=== PATIENT | male | born 1950 | race Caucasian/White ===

== ENCOUNTER 2018-06-24 14:58 | Outpatient (REF) | payer MEDICARE, SELFPAY ==
[2018-06-24 20:54] LABS: HCT 50.2 % (40.0-50.0); HGB 16.7 g/dL (13.5-17.5); Mean Corp. HGB Concentration 33.3 g/dL (32.0-36.0); Mean Corpuscular Hemoglobin 27.9 pg (27.0-33.0); Mean Corpuscular Volume 83.9 fL (80-95); Mean Platelet Volume 10.1 fL (8.0-11.0); Platelet Count 283 x1000/uL (130-400); RBC 5.98 m/cumm (4.50-6.00); RBC Distribution Width 12.7 % (11.8-14.1); White Blood Cell Count 15.19 k/cumm (4.4-10.8)
[2018-06-24 21:11] LABS: ALT 35 U/L (12-78); AST 24 U/L (15-37); Albumin 4.3 g/dL (3.4-5.0); Alkaline Phosphatase 132 U/L (46-116); Anion Gap 12.5 mmol/L (3-11); BUN 13 mg/dL (7-18); Bilirubin, Total 0.6 mg/dL (0.2-1.0); CO2 25.5 mmol/L (21.0-32.0); CREATININE 0.85 mg/dL (0.70-1.30); Calcium 8.8 mg/dL (8.5-10.1); Chloride 104 mmol/L (98-107); Glucose 99 mg/dL (70-100); Potassium 4.1 mmol/L (3.5-5.1); Sodium 142 mmol/L (136-145); Total Protein 7.6 g/dL (6.4-8.2)
[2018-06-26 10:50] LABS: PSA, Diagnostic 10.7 ng/ml (0-4.5)
== END 2018-06-24 15:18 ==
LOC: NCHCN 14:58
PROVIDERS: PCP Specialist/Technologist Athletic Trainer; Visit Provider Specialist/Technologist Athletic Trainer
DX: R39.198 Other difficulties with micturition (principal); N40.1 Benign prostatic hyperplasia with lower urinary tract symptoms
CPT/HCPCS: 80053; 85027; 84153; 87086

== ENCOUNTER 2018-06-25 08:27 | Emergency (ER) | payer MEDICARE, SELFPAY ==
[2018-06-25 08:34] VITALS: BP 135/96; PULSE 105; RESP 16; TEMP 36.6; O2SAT 97
--- NOTE | 2018-06-25 08:39 | ED.GENADUL_ITS ---
Discharge Plan Discharge Details Chief Complaint: Urinary Primary Care Provider: Tylor William ED Provider: Everette Garcia Home Meds and New Rx's Prescriptions: New ciprofloxacin HCl 250 mg tablet 250 mg PO BID Qty: 14 RF: 0 Continue tamsulosin [Flomax] 0.4 mg Capsule 1 cap PO DAILY RF: 0 Discharge Instructions Instructions: Urinary Retention in Men (ED) Additional Instructions: Our care management team will work to get you an appointment in urology clinic next week for approximately 7-day follow-up. Continue your Flomax. Take ciprofloxacin as prescribed. Return to the emergency room for any acute concern Medical Decision Making 68-year-old male with a recent increase in inability to completely void while urinating. He was seen in the office yesterday and underwent prostate exam was started on Flomax. He now presents with urinary retention. He is afebrile in mild discomfort. Bedside ultrasound reveals urinary retention Erazo catheter was placed with improvement and 900 cc urine output. Will send for urine culture. I will place him on antibiotics for presumptive prostatitis. Reviewed yesterday's laboratories which revealed normal creatinine. Discussed with Geraldine Carolina in urology clinic. Through care management we will arrange for approximately 1 week follow-up. Patient will continue the Flomax, I will prescribe a fluoroquinolone. He is stable for discharge home HPI General Mode of arrival: ambulatory . Date/Time Provider Initiated Documentation: 06/25/18 08:28 . Limitations to Documentation: no limitations . Information obtained by: patient . History of Present Illness 68 year old M presents to the emergency department with the chief complaint of Urinary retention, described as moderate, Quality is described as aching, dull and constant, and is localized to the abdomen. Patient reports no radiation. Patient started experiencing this hour(s) and it has been constant. No relieving factors improve symptom(s), No exacerbating factors reported . Patient notes no other symptoms.. Patient did receive the following treatments prior to arrival, none HPI Narrative: 68-year-old male with recent history of incomplete voiding, seen in the office yesterday and started on Flomax. This morning for the first time he is unable to urinate. He has dull, achy, constant lower abdominal pain. No vomiting or fever. He has otherwise recently been well. Related Data Home Medications Medication Instructions Recorded Confirmed ciprofloxacin HCl 250 mg PO BID #14 tab 06/25/18 tamsulosin [Flomax] 1 cap PO DAILY 06/25/18 06/25/18 Previous Rx's Medication Instructions Recorded ciprofloxacin HCl 250 mg PO BID #14 tab 06/25/18 General Stated Complaint: Urinary JODIE: 4 Review of Systems Review of Systems 6 systems reviewed and otherwise Exam Narrative Exam Narrative: GEN: awake, alert, oriented 3. Pleasant, well groomed, interactive. HEAD: Normocephalic, atraumatic ENT: Mucous membranes moist, oropharynx unremarkable, External ear exam unremarkable EYES: PERRL, EOMI NECK: Full ROM, no DARLENE, no menigismus CHEST/RESP: Nontender, clear to auscultation bilateral, no wheeze/rhonchi/rales CARDIOVASCULAR: RRR, no murmur, rub nan. 2+ Rad pulse bilateral ABDOMEN: Soft, distended and tender in the suprapubic region without rebound or guarding. +Bowel sounds EXT: Full ROM, no edema, no rash Neuro: Grossly normal neurologic exam, conversant, interactive. Psych: Speech fluent, thoughts congruent, affect normal Course Vital Signs Temperature 36.6 C 06/25/18 08:34 Pulse 105 H 06/25/18 08:34 Respiratory Rate 16 06/25/18 08:34 Blood Pressure 135/96 H 06/25/18 08:34 Pulse Oximetry 97 06/25/18 08:34 Temperature 36.6 C 06/25/18 08:34 Pulse 105 H 06/25/18 08:34 Respiratory Rate 16 06/25/18 08:34 Blood Pressure 135/96 H 06/25/18 08:34 Blood Pressure Position Sitting 06/25/18 08:34 Pulse Oximetry 97 06/25/18 08:34 Oxygen Delivery Method Room Air 06/25/18 08:34 Oxygen Flow Rate 0 06/25/18 08:34 Pain Level 5 06/25/18 08:34
--- NOTE | 2018-06-26 08:28 | PDOC.ERCMPRO ---
Care Management Progress Note 06/26/18-Pt seen for urinary retention/prostatitis on 06/25/[address] Marisol Garcia. F/U referral faxed to Urology.
== END 2018-06-25 09:16 | disposition home or self-care (01) ==
LOC: ER 09:45
PROVIDERS: Emergency Provider Emergency Medicine; PCP Specialist/Technologist Athletic Trainer
DX: R33.9 Retention of urine, unspecified (principal)
CPT/HCPCS: 51702; 99283; 87086

== ENCOUNTER → 2018-07-02 10:43 | Outpatient (BNVA) | payer MEDICARE, SELFPAY | PROVIDERS: PCP Specialist/Technologist Athletic Trainer; Visit Provider Nurse Practitioner Gerontology | DX: N40.1 Benign prostatic hyperplasia with lower urinary tract symptoms (principal); R33.8 Other retention of urine | CPT/HCPCS: 99203; 99215 ==

== ENCOUNTER 2019-05-19 00:12 | Emergency (ER) | payer MEDICARE, SELFPAY ==
[2019-05-19 00:19] VITALS: BP 147/99; PULSE 69; RESP 16; TEMP 36.1; O2SAT 98
--- NOTE | 2019-05-19 00:47 | ED.GENADUL_ITS ---
Discharge Plan Disposition Patient Disposition: HOME Condition: Stable Discharge Details Chief Complaint: Urinary Clinical Impression: Acute urinary retention Primary Care Provider: Tylor William ED Provider: Kodi Lopez Home Meds and New Rx's Prescriptions: Continued tamsulosin [Flomax] 0.4 mg Capsule 1 cap PO DAILY RF: 0 Discharge Instructions Instructions: Urinary Retention in Men (ED), Thao Catheter Placement and Care (ED) Additional Instructions: Follow up with the urology clinic in 1-2 weeks, someone should reach out to you with an appointment but if you don't hear from someone by tomorrow afternoon call Dr. Woodall's office if you have severe pain, fevers or feel more ill return to the emergency department Referrals: Jean-Claude Woodall MD [ [facility] STAFF PHYSICIAN] - Medical Decision Making 69 yo male with hx of bph requiring thao insertion abouta year ago per pt comes in with complaint of dribbling urine and unable to fully empty bladder. Denies burnign or pain and has no abdominal pain. HE has no fevers or chills and is in no distres on exam. He urinated here and still has over 600cc of urine in his bladder. Suspect htis is due to his bph, will have nursing place thao catheter and check UA. UA unremarkable, thao placed by nursing without complications. Will have him f/u with urology for voiding trial, return precautions given Differential Diagnosis bph, cystitis Lab Data Lab results reviewed: Yes I reviewed the patient's lab results. HPI General Mode of arrival: ambulatory . Date/Time Provider Initiated Documentation: 05/19/19 00:13 . Limitations to Documentation: no limitations . Information obtained by: patient . History of Present Illness 69 year old M presents to the emergency department with the chief complaint of difficulty urinating, described as moderate, Patient started experiencing this day(s) (1) and it has been constant. No relieving factors improve symptom(s), No exacerbating factors reported . Patient did receive the following treatments prior to arrival, none Related Data Home Medications Medication Instructions Recorded Confirmed tamsulosin [Flomax] 1 cap PO DAILY 06/25/18 07/02/18 Allergies Allergy/AdvReac Type Severity Reaction Status Date / Time No Known Allergies Allergy Verified 07/02/18 10:59 General Stated Complaint: Urinary JODIE: 3 Review of Systems Review of Systems All systems reviewed & are unremarkable except as noted in HPI and below Constitutional Denies chills, Denies fever(s) and Denies weakness Cardiovascular Denies chest pain and Denies dyspnea Respiratory Denies cough and Denies dyspnea Gastrointestinal Denies abdominal pain, Denies nausea and Denies vomiting Genitourinary Denies dysuria Integumentary/Breasts Denies rash Neurologic Denies weakness [facility] Social History (Updated 07/02/18 @ 10:58 by Maddy Avelar RN) Smoking/Tobacco Use Status: Never Alcohol Intake: current Alcohol Intake frequency: holidays/special occasions only Drug use: Never Substance use type: does not use Do you feel safe in your relationship?: Yes Exam Const General: no acute distress Orientation: alert HENMT Head: normal to inspection Ears: external ears normal General nose exam: external nose normal Mouth: moist mucous membranes Eyes General: appearance normal, both eyes and all related structures Neck Neck: normal visual inspection Resp Effort & Inspection: normal respiratory effort and able to speak in complete sentences Cardio Rate: regular rate GI Palpation: soft Skin General skin exam: no rashes or lesions noted Neuro General: alert and oriented x3 Extrem General: normal to inspection Psych Mental Status: mental status grossly normal Course Vital Signs Temperature 36.1 C L 05/19/19 00:19 Pulse 69 05/19/19 00:19 Respiratory Rate 16 05/19/19 00:19 Blood Pressure 147/99 H 05/19/19 00:19 Pulse Oximetry 98 05/19/19 00:19 Temperature 36.1 C L 05/19/19 00:19 Temperature Source Skin 05/19/19 00:19 Pulse 69 05/19/19 00:19 Respiratory Rate 16 05/19/19 00:19 Blood Pressure 147/99 H 05/19/19 00:19 Pulse Oximetry 98 05/19/19 00:19 Oxygen Delivery Method Room Air 05/19/19 00:19 Oxygen Flow Rate 0 05/19/19 00:19 Pain Level 0 05/19/19 00:19
[2019-05-19 00:48] LABS: Bilirubin Negative (Negative); Blood Negative (Negative); Clarity Clear (Clear); Glucose Negative (Negative); Ketones Negative (Negative); Leukocyte Esterase Negative (Negative); Nitrite Negative (Negative); Specific Gravity 1.015 (1.005-1.025); Urobilinogen 0.2 EU/dL (Up TO 0.2)
[2019-05-19] MEDS: Lidocaine 2% Jelly 6 ML SYR (02:04)
--- NOTE | 2019-05-19 07:01 | NUR.NOTE ---
referral faxed to [facility], Dr. Woodall.Nursing Note:
== END 2019-05-19 02:50 | disposition home or self-care (01) ==
PROVIDERS: Emergency Provider Emergency Medicine; PCP Specialist/Technologist Athletic Trainer
DX: N40.1 Benign prostatic hyperplasia with lower urinary tract symptoms (principal); R33.8 Other retention of urine
CPT/HCPCS: 51702; 99283; 81003

== ENCOUNTER 2019-05-20 21:10 | Emergency (ER) | payer MEDICARE, SELFPAY ==
[2019-05-20 21:15] VITALS: BP 141/78; PULSE 93; RESP 18; TEMP 37.1; O2SAT 99
--- NOTE | 2019-05-20 21:51 | ED.GENADUL_ITS ---
Discharge Plan Disposition Patient Disposition: HOME Condition: Good Discharge Details Chief Complaint: Urinary Clinical Impression: Displacement of Erazo catheter Primary Care Provider: Tylor William ED Provider: David Sellers Home Meds and New Rx's Prescriptions: Continued tamsulosin [Flomax] 0.4 mg Capsule 2 cap PO DAILY RF: 0 Discharge Instructions Instructions: Erazo Catheter Placement and Care (ED) Additional Instructions: Erazo care as shown by nursing. Follow-up with urology as planned. Continue the Flomax. Return to ED for problems. Referrals: Jean-Claude Woodall MD [ [facility] STAFF PHYSICIAN] - Medical Decision Making Asked nursing to evaluate Erazo and flush as necessary. She reports that it was actually pulled quite a ways out. She moved the balloon and repositioned and he immediately had urine return. He feels much better. There is no gross hematuria. Patient will continue Flomax and follow-up with urology as previously planned. Erazo care reviewed by nursing. HPI General Mode of arrival: ambulatory . Date/Time Provider Initiated Documentation: 05/20/19 21:51 . Limitations to Documentation: no limitations . Information obtained by: patient . HPI Narrative: Patient presents to ED because his Erazo which we had placed a couple days ago is no longer draining. He feels like he needs to urinate but cannot. He is leaking out around the catheter. He has had no fever. He has no back pain. He has had no hematuria. He is on Flomax and is due to see urology on 29 May. Related Data Home Medications Medication Instructions Recorded Confirmed tamsulosin [Flomax] 2 cap PO DAILY 06/25/18 05/20/19 Allergies Allergy/AdvReac Type Severity Reaction Status Date / Time No Known Allergies Allergy Verified 05/20/19 21:19 General Stated Complaint: Urinary JODIE: 3 Review of Systems Review of Systems As documented in HPI otherwise negative as below. Const: no fever, chills, weakness Resp: no cough, SOB, pleuritic pain CV: no CP, diaphoresis, edema, syncope GI: no abdominal pain, nausea, vomiting, diarrhea Neuro: no headache, numbness, focal weakness, confusion PFSH Medical History BPH (benign prostatic hyperplasia) (Chronic) Social History Smoking/Tobacco Use Status: Never Alcohol Intake: current Alcohol Intake frequency: holidays/special occasions only Drug use: Never Substance use type: does not use Do you feel safe at home: Yes Do you feel safe in your relationship?: Yes Exam Narrative Exam Narrative: Vitals: Afebrile. Mildly hypertensive and tachycardic likely due to discomfort. Normal saturations. Const: WDWN male in NAD. HEENT: NC/AT. Normal facial exam. Neck: Supple. Trachea midline. Lungs: Normal respiratory effort. Neuro: A+O x 3. CN grossly in tact. Good strength and no focal deficit. : Erazo in place. Draining minimal urine. No gross hematuria. Course Vital Signs Temperature 98.8 F 05/20/19 21:15 Pulse 93 H 05/20/19 21:15 Respiratory Rate 18 05/20/19 21:15 Blood Pressure 141/78 H 05/20/19 21:15 Pulse Oximetry 99 05/20/19 21:15 Temperature 98.8 F 05/20/19 21:15 Temperature Source Skin 05/20/19 21:15 Pulse 93 H 05/20/19 21:15 Respiratory Rate 18 05/20/19 21:15 Blood Pressure 141/78 H 05/20/19 21:15 Pulse Oximetry 99 05/20/19 21:15 Oxygen Delivery Method Room Air 05/20/19 21:15 Oxygen Flow Rate 0 05/20/19 21:15 Pain Level 0 05/20/19 21:15
--- NOTE | 2019-05-21 00:06 | NUR.NOTE ---
05/20/192129 signwriter observed thao catheter in place with taunt catheter noted, leg bag not in correct position ie too far down on leg pulling catheter, with urine leaking at insertion site. signwriter reposition the catheter with immediate urine flow into bag noted. signwriter flushed thao with 30cc sterile water with no clots returned and 30cc clear light yellow return immedialty noted. pt tolerated procedure well. Dr Sellers notified. leg bag positioned correclty and pt educated on correct placement as well as educating pt on thao cath care/maintenance and use of leg bag/drainage bag with pt verbal understanding. Nursing Note:
== END 2019-05-20 22:16 | disposition home or self-care (01) ==
PROVIDERS: Emergency Provider Emergency Medicine; PCP Specialist/Technologist Athletic Trainer
DX: T83.021A Displacement of indwelling urethral catheter, initial encounter (principal); N40.1 Benign prostatic hyperplasia with lower urinary tract symptoms; I10 Essential (primary) hypertension; Z96.0 Presence of urogenital implants
CPT/HCPCS: 99282; 99283

== ENCOUNTER 2019-05-21 16:55 | Emergency (ER) | payer MEDICARE, SELFPAY ==
[2019-05-21 16:57] VITALS: BP 132/100; PULSE 76; RESP 16; TEMP 36.8; O2SAT 95
--- NOTE | 2019-05-21 17:00 | ED.GENADUL_ITS ---
Discharge Plan Disposition Patient Disposition: HOME Condition: Fair Discharge Details Chief Complaint: Urinary Clinical Impression: Urinary retention Primary Care Provider: Tylor William ED Provider: Sherlyn Lee Home Meds and New Rx's Prescriptions: Continued tamsulosin [Flomax] 0.4 mg Capsule 2 cap PO DAILY RF: 0 Discharge Instructions Instructions: Urinary Retention in Men (ED), Erazo Catheter Placement and Care (ED) Additional Instructions: Encourage hydration. Please continue with catheter care as instructed by nursing staff. Please call urology tomorrow to discuss her continued catheter issues. Keep upcoming appointment with urologist. If you develop fever/chills, pain, difficulty with urinary drainage or the new/worsening symptoms please seek care urgently once again. Referrals: Jean-Claude Woodall MD [ [facility] STAFF PHYSICIAN] - Medical Decision Making Patient is 69-year-old male presenting today with chief complaint of draining around his catheter. Patient had catheter placed 2 days ago. Was here yesterday at which time he has had a catheter was almost pulled out completely. Catheter was replaced. Patient has known diagnosis of BPH which thought to be the source of his urinary retention. He presents today for 1 hour of diminished output through the catheter and drainage around. His reports that he was voiding through close with the drainage from the penis around the catheter. Did not note any foul smell purulent discharge. He does not have any pain in the penis or in the abdomen. Denies any fevers or chills. On exam, the catheter appears to be in place. No abnormalities with palpation. Nursing staff attempted to flush the catheter and were unable to draw back any fluid. Catheter was over replaced with an 18 [place] catheter. Patient tolerated this well. Urine immediately draining. Patient reported that he continued to have some penile discharge. However, when I discussed this further, this sounds to be more the Urojet substance that was placed for the insertion of the catheter. He does not seem to have any urinary discharge. He was kept in the department for another half an hour, was drinking water and ambulating with no continued discharge. He will contact urology to discuss follow-up appointment. Encourage hydration. He was given strict return precautions. Care of the catheter was discussed with patient. All the questions and concerns were addressed in agreement this plan. HPI General Mode of arrival: ambulatory . Date/Time Provider Initiated Documentation: 05/21/19 16:59 . Limitations to Documentation: no limitations . Information obtained by: patient, family () and RN notes reviewed . HPI Narrative: Patient is a 69-year-old male presents today with chief complaint of draining around his catheter. Patient was seen here 2 days ago at which time he was diagnosed with urinary retention. Catheter was placed. Was seen here again last night with difficulty with his catheter. At that time, nursing staff felt that the catheter was near dislodged, catheter was flushed and urine flowed well. He denies any penile pain. No abdominal pain. No hematuria. He has a follow-up appointment. Denies any pulling on the Erazo. Reports his been laying low primarily since placement of catheter. Related Data Home Medications Medication Instructions Recorded Confirmed tamsulosin [Flomax] 2 cap PO DAILY 06/25/18 05/20/19 Allergies Allergy/AdvReac Type Severity Reaction Status Date / Time No Known Allergies Allergy Verified 05/20/19 21:19 General Stated Complaint: Urinary JODIE: 3 Review of Systems Constitutional Reports as per HPI, Denies chills, Denies fever(s) and Denies poor appetite Cardiovascular Denies chest pain Respiratory Denies cough Gastrointestinal Denies abdominal pain, Denies change in bowel habits, Denies nausea and Denies vomiting Genitourinary Reports as per HPI Musculoskeletal Reports as per HPI and Denies back pain Integumentary/Breasts Reports as per HPI and Denies rash PFS Medical History BPH (benign prostatic hyperplasia) (Chronic) Social History Smoking/Tobacco Use Status: Never Alcohol Intake: current Alcohol Intake frequency: holidays/special occasions only Drug use: Never Substance use type: does not use Do you feel safe at home: Yes Do you feel safe in your relationship?: Yes Exam Const General: cooperative, healthy appearing, comfortable, no acute distress, well developed and well groomed Nutritional Appearance: average body habitus and well nourished Orientation: alert and awake Resp Effort & Inspection: normal respiratory effort and no respiratory distress Auscultation: clear to auscultation bilaterally, no rales, no rhonchi and no wheezes Cardio Rate: regular rate Rhythm: regular rhythm Heart Sounds: S1 normal and S2 normal GI Inspection: normal to inspection Palpation: soft, no hepatosplenomegaly, not firm, no guarding, not rigid and nontender Male General Exam: Yes normal external exam and Yes other (catheter in place, no drainage appreciated ) Penis: normal penis Meatus: meatus normal Back/Spine/Pelvis Back: no CVA tenderness Skin General skin exam: no rashes or lesions noted Trauma: no lacerations or abrasions Neuro General: alert and awake Cognition: normal cognition Speech: speech normal Gait: normal gait Psych Appearance: grossly normal and well kempt Mental Status: mental status grossly normal Speech and Movement: speech and movement normal Course Vital Signs Temperature 36.8 C 05/21/19 16:57 Pulse 76 05/21/19 16:57 Respiratory Rate 16 05/21/19 16:57 Blood Pressure 132/100 H 05/21/19 16:57 Pulse Oximetry 95 05/21/19 16:57 Temperature 36.8 C 05/21/19 16:57 Temperature Source Skin 05/21/19 16:57 Pulse 76 05/21/19 16:57 Respiratory Rate 16 05/21/19 16:57 Blood Pressure 132/100 H 05/21/19 16:57 Blood Pressure Position Sitting 05/21/19 16:57 Pulse Oximetry 95 05/21/19 16:57 Oxygen Delivery Method Room Air 05/21/19 16:57 Oxygen Flow Rate 0 05/21/19 16:57
[2019-05-21] MEDS: Lidocaine 2% Jelly 6 ML SYR (17:40)
== END 2019-05-21 19:03 | disposition home or self-care (01) ==
PROVIDERS: Emergency Provider Physician Assistant; PCP Specialist/Technologist Athletic Trainer
DX: T83.031A Leakage of indwelling urethral catheter, initial encounter (principal); N40.1 Benign prostatic hyperplasia with lower urinary tract symptoms; R33.8 Other retention of urine
CPT/HCPCS: 51702; 99283

== ENCOUNTER 2019-05-22 20:50 | Observation (INO) | payer MEDICARE, SELFPAY ==
--- NOTE | 2019-05-22 21:01 | ED.GENADUL_ITS ---
Discharge Plan Disposition Patient Disposition: [facility] INPATIENT Condition: Poor Discharge Details Chief Complaint: Fever Clinical Impression: UTI (urinary tract infection), Sepsis Primary Care Provider: Tylor William ED Provider: David Sellers [place] Meds and New Rx's Prescriptions: No Action oxybutynin chloride 5 mg tablet 5 mg PO BID-TID PRN (Reason: bladder spasms) Qty: 20 RF: 0 tamsulosin [Flomax] 0.4 mg Capsule 2 cap PO DAILY RF: 0 Medical Decision Making Patient presenting with fever and tachycardia with likely UTI. This would qualify as sepsis. 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 IV was eventually established. LR was started. Laboratory studies were obtained. Erazo was clamped and urine was eventually obtained from the bladder itself. Patient's heart rate and temperature have come down. He is getting the second liter of LR. His white count is markedly elevated. His lactic acid is normal. His labs are otherwise good. Urine is mostly bloody with inability to identify white cells or bacteria. As there is no other source I will presume UTI and sepsis. Patient however looks well and has no complaints. He has received IV ceftriaxone. He is on his second liter of fluid. He would like to go home which if his vitals normalized after the second liter is probably a reasonable course. We will continue him on ciprofloxacin. Patient continues to be tachycardic despite 2 L of LR. He continues to feel well. His blood pressure is normal. However given the persistent tachycardia I cannot justify discharging him. I have discussed this with him and his . They are agreeable to admission. Case discussed with hospitalist. We will continue LR overnight. Will give another dose of IV ceftriaxone. He will have a total of 2 g on board. Blood and urine cultures pending. Patient will be admitted to telemetry for monitoring of UTI and sepsis. Medical Records Medical records reviewed: Yes I reviewed the patient's medical records. Lab Data Lab results reviewed: Yes I reviewed the patient's lab results. HPI General Mode of arrival: ambulatory . Date/Time Provider Initiated Documentation: 05/22/19 21:01 . Limitations to Documentation: no limitations . Information obtained by: patient, RN notes reviewed and old records reviewed . HPI Narrative: Patient presents to ED with fever. Patient has a Erazo which was placed by us originally for urinary retention. It was replaced yesterday because it was not working. He developed fever and chills today. He otherwise feels well. He has no back, flank, abdominal pain. Catheter is draining freely. He reports no cough or cold symptoms. There is no chest pain or shortness of breath. However, his was concerned that he had a high fever and brought him in for evaluation. Related Data Home Medications Medication Instructions Recorded Confirmed tamsulosin [Flomax] 2 cap PO DAILY 06/25/18 05/22/19 oxybutynin chloride 5 mg tablet 5 mg PO BID-TID PRN #20 tab 05/22/19 05/22/19 Previous Rx's Medication Instructions Recorded oxybutynin chloride 5 mg tablet 5 mg PO BID-TID PRN #20 tab 05/22/19 Allergies Allergy/AdvReac Type Severity Reaction Status Date / Time No Known Allergies Allergy Verified 05/22/19 21:10 General JODIE: 3 Review of Systems Review of Systems 07/07 Review of Systems completed and is negative except as stated above in HPI (Systems reviewed: Const, Eyes, ENT, Resp, CV, GI, , MSK, Skin, Neuro) PFSH Medical History BPH (benign prostatic hyperplasia) (Chronic) Social History Smoking/Tobacco Use Status: Never Alcohol Intake: current Alcohol Intake frequency: holidays/special occasions only Drug use: Never Substance use type: does not use Do you feel safe at home: Yes Do you feel safe in your relationship?: Yes Exam Narrative Exam Narrative: Vitals: Febrile with tachycardia. Good blood pressure. Normal saturations. Const: WDWN male in NAD. HEENT: NC/AT. Normal facial exam. Eyes: Normal conjunctiva and sclera. Neck: Supple. Trachea midline. Lungs: Normal respiratory effort. Lungs are clear. Cor: RRR without murmur/gallop. Good radial pulses. GI: Soft. NT/ND. No guarding or rebound. Back: No CVAT. Neuro: A+O x 3. CN grossly in tact. Good strength and no focal deficit. Ext: No C/C/E. No deformity or tenderness. Skin: Warm and dry without rash.
[2019-05-22 21:02] VITALS: BP 123/109; PULSE 122; RESP 16; TEMP 38.7; O2SAT 96
[2019-05-22] MEDS: LORazepam 1 MG TAB PO (21:44)
[2019-05-22 21:45] VITALS: TEMP 38.7
[2019-05-22] MEDS: Acetaminophen 500 MG TAB 1000 MG PO (21:45)
[2019-05-22] MEDS: Lidocaine/Prilocaine Cream 5 GM TUBE (21:46)
[2019-05-22 22:21] LABS: Bilirubin Negative (Negative); Blood Large (Negative); Clarity Cloudy (Clear); Glucose Negative (Negative); Ketones Negative (Negative); Leukocyte Esterase Small (Negative); Nitrite Negative (Negative); Specific Gravity 1.015 (1.005-1.025); Urobilinogen 0.2 EU/dL (Up TO 0.2)
[2019-05-22 22:32] LABS: C & S Indicated? Yes; RBC >50 (0-2)
[2019-05-22 22:44] LABS: Lactate 1.2 mmol/L (0.6-1.4)
[2019-05-22 22:45] VITALS: TEMP 37.1
[2019-05-22] MEDS: Lactated Ringers 1,000 ML 1000 ML IV ×2 (22:45→23:53)
[2019-05-22 22:52] LABS: Abs Immature Grans 0.06 k/cumm (0.0-0.09); Basophils % 0.4; Eosinophils % 0.7; HCT 46.9 % (40.0-50.0); HGB 15.6 g/dL (13.5-17.5); Immature Grans % 0.3; Lymphocytes % 5.9; Mean Corp. HGB Concentration 33.3 g/dL (32.0-36.0); Mean Corpuscular Volume 84.2 fL (80-95); Mean Platelet Volume 9.2 fL (8.0-11.0); Monocytes % 19.2; Neutrophils % 73.5; Platelet Count 260 x1000/uL (130-400); RBC 5.57 m/cumm (4.50-6.00); RBC Distribution Width 12.7 % (11.8-14.1)
[2019-05-22 22:57] LABS: Absolute Basophil Count 0.09 k/cumm (0.0-0.2); Absolute Eosinophil Count 0.16 k/cumm (0.0-0.7); Absolute Lymphocyte Count 1.33 k/cumm (1.2-3.4); Absolute Monocyte Count 4.32 k/cumm (0.11-0.7); Absolute Neutrophil Count 16.54 k/cumm (1.2-6.7)
[2019-05-22 22:59] VITALS: TEMP 37.1
[2019-05-22 23:05] LABS: ALT 25 U/L (16-63); AST 14 U/L (15-37); Albumin 3.6 g/dL (3.4-5.0); Alkaline Phosphatase 119 U/L (46-116); Anion Gap 8.9 mmol/L (3-11); BUN 17 mg/dL (7-18); Bilirubin, Total 0.5 mg/dL (0.2-1.0); CO2 27.1 mmol/L (21.0-32.0); CREATININE 1.03 mg/dL (0.70-1.30); Calcium 8.8 mg/dL (8.5-10.1); Chloride 105 mmol/L (98-107); Glucose 100 mg/dL (70-100); Magnesium 1.8 mg/dL (1.8-2.4); Potassium 4.1 mmol/L (3.5-5.1); Sodium 141 mmol/L (136-145); Total Protein 7.2 g/dL (6.4-8.2)
[2019-05-22] MEDS: Normal Saline Flush 10 ML SYR IVP (23:09)
[2019-05-22 23:12] LABS: Diff Comment Agrees w/ Instrument
[2019-05-22 23:23] VITALS: BP 117/65; PULSE 110; RESP 16; TEMP 37.1; O2SAT 94
[2019-05-22] MEDS: cefTRIAXone 1 GM/50 ML BAG IVPB (23:24)
[2019-05-23] VITALS (27 sets, daily range): BP systolic 115–155; BP diastolic 63–84; PULSE 91–115; RESP 14–28; TEMP 37.1–38.4; O2SAT 95–97
[2019-05-23] MEDS: Lactated Ringers 1,000 ML 125 ML IV ×3 (01:51→18:08)
[2019-05-23] MEDS: cefTRIAXone 1 GM/50 ML BAG IVPB (02:15)
--- NOTE | 2019-05-23 03:19 | HPE_ITS ---
Date of service: 05/23/19 Time of Service: 03:19 Assessment and Plan (1) Complicated UTI (urinary tract infection): Current visit: Yes Status: Acute I can not rule out prostatits as he declined to have prostate exam. He has at the least a complicated UTI probably d/t urinary retention and repeated thao manipulation and replacement. Quinolones are the best for treatment of prostate infection and therefore I am going to switch his Rocephin to Levaquin. I will check renal ultrasound and request urology consult in the a.m. Continue hydration w/ iv fluids. Repeat his labs in the a.m. At least his lactate and procalcitonin were normal which bodes well in terms of sepsis. He clinically appears to be doing better although remains mildly tachycardic. (2) BPH (benign prostatic hyperplasia): Current visit: Yes Status: Chronic continue Flomax and will get urology consult in the a.m. History of Present Illness Chief Complaint: fever and chills Narrative: 69 yr old male w/ PMH of BPH w/ urinary retention who presented to the ER tonight w/ acute onset of fevers and rigors. He presented to the ER on 05/19/2019 d/t acute urinary retention of over 600 mL. Thao was placed and he was instructed to continue his Flomax and to follow up w/ urologist. He returned on 05/20 d/t leakage around the catheter and failure of the catheter to drain properly. The catheter was repositioned and w/ good urine output he was discharged home. He returned on 05/21 d/t recurrent failure of the catheter to drain and urinary leakage around the cathteter. This time the catheter was found to be dislodged nearly out and it was replaced. He has not been on any antibiotics during this time. Initial UA on 05/19 did not show any evidence for UTI. Tonight he presented w/ acute onset of fever (38.7 C here), rigors and tachycardia (122) but no hypotension. Blood lactate and procalcitonin are normal. He was treated w/ 2 liters of LR and given Rocephin 2 gm IVPB. He is now admitted for treatment of UTI w/ possible sepsis. Blood cultures and urine cultures were sent. Urology will be consulted in the a.m. Review of Systems Constitutional Reports as per [facility] Genitourinary Reports system reviewed and no additional complaints, except as docu [facility] Medical History (Updated 05/23/19 @ 03:57 by Emmett Dillard) BPH (benign prostatic hyperplasia) (Chronic) prior thao placement for urinary retention History of lower leg fracture (Acute) right History of shoulder fracture (Acute) left Family History (Updated 05/23/19 @ 03:48 by Emmett Dillard) Father Heart disease age 57 from [place] Mother No problems noted. Brother , unknown cause of No problems noted. Sister No problems noted. Sister No problems noted. Social History Smoking/Tobacco Use Status: Never Alcohol Intake: current Alcohol Intake frequency: holidays/special occasions only Drug use: Never Substance use type: does not use Do you feel safe at home: Yes Do you feel safe in your relationship?: Yes Meds Home Medications Medication Instructions Recorded Confirmed Type tamsulosin [Flomax] 2 cap PO DAILY 06/25/18 05/22/19 History oxybutynin chloride 5 mg tablet 5 mg PO BID-TID PRN #20 tab 05/22/19 05/22/19 Rx Allergies Allergy/AdvReac Type Severity Reaction Status Date / Time No Known Allergies Allergy Verified 05/22/19 21:10 Exam Const General: cooperative, no acute distress and well groomed Nutritional Appearance: average body habitus and well nourished Orientation: alert, awake and oriented x3 Neck Neck: normal visual inspection, full ROM, no lymphadenopathy, trachea midline and supple Thyroid: thyroid normal Carotids: normal carotid upstroke Lymphatic: no lymphadenopathy noted Chest Chest: normal inspection of the chest and normal palpation of entire chest wall Resp Effort & Inspection: normal respiratory effort and able to speak in complete sentences Auscultation: clear to auscultation bilaterally Percussion: percussion normal Cardio Jugular venous pressure: no JVD Palpation: normal PMI Rate: regular rate Rhythm: regular rhythm Heart Sounds: S1 normal, S2 normal and normal, physiologic split S2 Pulses: normal peripheral pulses GI Inspection: normal to inspection Palpation: soft, no hepatosplenomegaly and nontender Percussion: normal to percussion Auscultation: normal bowel sounds Rectal Exam: deferred General: bimanual renal exam normal bilaterally, bladder normal to inspection, No CVA tenderness and deferred (patient declined prostate exam) Back/Spine/Pelvis Back: no CVA tenderness Cervical Spine: normal cervical lordosis and cervical ROM normal Thoracic/Lumbar Spine: thoracic and lumbar spine normal to inspection and thoraco-lumbar ROM normal Skin General skin exam: no rashes or lesions noted, elasticity normal and turgor normal Lesions: no lesions Rashes: no rashes Trauma: no lacerations or abrasions Hair: normal Nails: normal Neuro General: alert, awake, oriented x3, moves all extremities and no focal motor deficits Cognition: normal cognition Speech: speech normal Extrem General: normal to inspection, full ROM, normal capillary refill, no joint en largement, no clubbing, cyanosis or edema and no calf tenderness bilaterally Psych Appearance: grossly normal Mental Status: mental status grossly normal Speech and Movement: speech and movement normal Mood: congruent mood Affect: normal affect Attitude: cooperative Thought Process: normal Thought Content: normal Insight: insight good Judgment: judgment good Results Labs : 05/22/19 22:25 05/22/19 22:25 Laboratory Results - last 24 hr 05/22/19 05/22/19 05/22/19 22:15 22:25 22:25 WBC RBC Hgb Hct MCV MCH MCHC RDW Plt Count MPV Immature Gran % Neutrophils % Lymphocytes % Monocytes % Eosinophils % Basophils % Absolute Neutrophils Absolute Lymphocytes Absolute Monocytes Absolute Eosinophils Absolute Basophils Differential Comment Sodium 141 Potassium 4.1 Chloride 105 Carbon Dioxide 27.1 Anion Gap 8.9 BUN 17 Creatinine 1.03 Estimated GFR/1.73 m2 >= 60.00 Glucose 100 Lactate 1.2 Calcium 8.8 Magnesium 1.8 Total Bilirubin 0.5 AST 14 L ALT 25 Alkaline Phosphatase 119 H Total Protein 7.2 Albumin 3.6 Urine Color Red Urine Clarity Cloudy Urine pH 7.0 Ur Specific [place] 1.015 Urine Protein 100 H Urine Ketones Negative Urine Blood Large H Urine Nitrite Negative Urine Bilirubin Negative Urine Urobilinogen 0.2 Ur Leukocyte Esterase Small H Urine RBC >50 H Urine WBC Ur Epithelial Cells Not Applicable Urine Crystals Not Applicable Urine Bacteria Not Applicable Urine Mucus Not Applicable Ur Culture Indicated? Yes Urine Glucose Negative 05/22/19 22:25 WBC 22.50 H RBC 5.57 Hgb 15.6 Hct 46.9 MCV 84.2 MCH 28.0 MCHC 33.3 RDW 12.7 Plt Count 260 MPV 9.2 Immature Gran % 0.3 Neutrophils % 73.5 Lymphocytes % 5.9 Monocytes % 19.2 Eosinophils % 0.7 Basophils % 0.4 Absolute Neutrophils 16.54 H Absolute Lymphocytes 1.33 Absolute Monocytes 4.32 H Absolute Eosinophils 0.16 Absolute Basophils 0.09 Differential Comment Agrees w/ instrument Sodium Potassium Chloride Carbon Dioxide Anion Gap BUN Creatinine Estimated GFR/1.73 m2 Glucose Lactate Calcium Magnesium Total Bilirubin AST ALT Alkaline Phosphatase Total Protein Albumin Urine Color Urine Clarity Urine pH Ur Specific [place] Urine Protein Urine Ketones Urine Blood Urine Nitrite Urine Bilirubin Urine Urobilinogen Ur Leukocyte Esterase Urine RBC Urine WBC Ur Epithelial Cells Urine Crystals Urine Bacteria Urine Mucus Ur Culture Indicated? Urine Glucose Last Vital Signs Temp 37.1 C 05/22/19 23:23 Pulse 110 H 05/22/19 23:23 Resp 16 05/22/19 23:23 BP 117/65 05/22/19 23:23 Pulse Ox 94 L 05/22/19 23:23
[2019-05-23 07:00] LABS: Abs Immature Grans 0.05 k/cumm (0.0-0.09); Absolute Basophil Count 0.06 k/cumm (0.0-0.2); Absolute Eosinophil Count 0.27 k/cumm (0.0-0.7); Absolute Lymphocyte Count 1.95 k/cumm (1.2-3.4); Absolute Monocyte Count 4.51 k/cumm (0.11-0.7); Basophils % 0.3; Eosinophils % 1.4; HCT 43.6 % (40.0-50.0); HGB 14.5 g/dL (13.5-17.5); Immature Grans % 0.3; Lymphocytes % 10.1; Mean Corp. HGB Concentration 33.3 g/dL (32.0-36.0); Mean Corpuscular Hemoglobin 28.2 pg (27.0-33.0); Mean Corpuscular Volume 84.7 fL (80-95); Monocytes % 23.3; Neutrophils % 64.6; Platelet Count 242 x1000/uL (130-400); RBC 5.15 m/cumm (4.50-6.00); RBC Distribution Width 12.8 % (11.8-14.1); White Blood Cell Count 19.34 k/cumm (4.4-10.8)
[2019-05-23 07:09] LABS: Anion Gap 8.6 mmol/L (3-11); BUN 11 mg/dL (7-18); CO2 26.4 mmol/L (21.0-32.0); CREATININE 0.91 mg/dL (0.70-1.30); Calcium 8.1 mg/dL (8.5-10.1); Chloride 108 mmol/L (98-107); Glucose 106 mg/dL (70-100); Sodium 143 mmol/L (136-145)
[2019-05-23 07:24] LABS: Absolute Neutrophil Count 12.49 k/cumm (1.2-6.7)
--- NOTE | 2019-05-23 07:30 | DI.US_ITS ---
SYMPTOM/DIAGNOSIS: UTI W/SEPSIS, R/O PYELONEPHRITIS, ABSCESS RENAL ULTRASOUND: There are no prior comparison exams. The right kidney measures 10.9 cm in length. The left kidney measures 11.1 cm in length There is normal parenchymal thickness and parenchymal echogenicity. No hydronephrosis is seen. There is no evidence of perinephric collection. There is no gross evidence of pyelonephritis. Both ureteral jets were visualized. A Erazo catheter is noted in the bladder with a volume of 39 cc. The prostate volume is 50 cc IMPRESSION: Negative renal ultrasound.
[2019-05-23 07:53] LABS: Diff Comment Agrees w/ Instrument; RBC Morphology Normal
[2019-05-23 07:58] LABS: Procalcitonin < 0.1 ng/mL
--- NOTE | 2019-05-23 08:32 | PGE_ITS ---
Date of Service Date of service: 05/23/19 Time of Service: 08:32 Subjective Interval history since last seen: In NSR - ST, around 100%. On room air. Last temp at 10 pm yesterday - 38.7. 38.2 this am, 37.2 at 2 pm. Denies dizziness, chest pain, shortness of breath, nausea, any more rigors. Feels better. Otherwise, hemodynamically stable. Physical exam - unremarkable (got more tachycardic when he sat up; still has a thao - draining clear light urine). We will continue to monitor the patient's labs, continue empiric levofloxacin. Ok to d/c director of cardiac cath lab. Await culture results. Patient agrees to stay through tomorrow, but really wants to be discharged t omorrow. Objective Objective Clinical Data: Abnormal lab results 05/22/19 05/22/19 05/22/19 Range/Units 22:15 22:25 22:25 WBC 22.50 H (4.4-10.8) k/cumm Absolute Neutrophils 16.54 H (1.2-6.7) k/cumm Absolute Monocytes 4.32 H (0.11-0.7) k/cumm Chloride (98-107) mmol/L Glucose (70-100) mg/dL Calcium (8.5-10.1) mg/dL AST 14 L (15-37) U/L Alkaline Phosphatase 119 H (46-116) U/L Urine Protein 100 H (Negative) mg/dL Urine Blood Large H (Negative) Ur Leukocyte Esterase Small H (Negative) Urine RBC >50 H (0-2) 05/23/19 05/23/19 Range/Units 06:38 06:38 WBC 19.34 H (4.4-10.8) k/cumm Absolute Neutrophils 12.49 H (1.2-6.7) k/cumm Absolute Monocytes 4.51 H (0.11-0.7) k/cumm Chloride 108 H (98-107) mmol/L Glucose 106 H (70-100) mg/dL Calcium 8.1 L (8.5-10.1) mg/dL AST (15-37) U/L Alkaline Phosphatase (46-116) U/L Urine Protein (Negative) mg/dL Urine Blood (Negative) Ur Leukocyte Esterase (Negative) Urine RBC (0-2) Vital Signs Temperature 37.1 C 05/23/19 02:30 Temperature Source Temporal Artery Scan 05/23/19 02:30 Pulse 102 H 05/23/19 07:00 Pulse 109 H 05/23/19 07:00 Respiratory Rate 24 05/23/19 07:00 Respiratory Effort Non-Labored 05/23/19 02:30 Respiratory Depth Normal 05/23/19 02:30 Respiratory Pattern Normal 05/23/19 02:30 Blood Pressure 124/75 05/23/19 07:00 Blood Pressure Mean 87 05/23/19 07:00 Pulse Oximetry 95 05/23/19 06:01 Oxygen Delivery Method Room Air 05/23/19 02:30 Oxygen Flow Rate 0 05/23/19 02:30 Pain Level 0 05/23/19 02:45 Intake & Output 05/22/19 05/22/19 05/23/19 11:59 23:59 11:59 Intake Total 1000 / 1000 1618.75 / 1618.75 Output Total 925 / 925 Balance 1000 / 1000 693.75 / 693.75 Weight 72.575 kg 69.7 kg Intake: IV 1000 / 1000 1618.75 / 1618.75 Output: Urine 925 / 925 Other: Urine Color Yellow Urine Appearance Clear Comment BPH. Thao placed 05/19 Laboratory Results WBC 19.34 k/cumm (4.4-10.8) H 05/23/19 06:38 RBC 5.15 m/cumm (4.50-6.00) 05/23/19 06:38 Hgb 14.5 g/dL (13.5-17.5) 05/23/19 06:38 Hct 43.6 % (40.0-50.0) 05/23/19 06:38 MCV 84.7 fL (80-95) 05/23/19 06:38 MCH 28.2 pg (27.0-33.0) 05/23/19 06:38 MCHC 33.3 g/dL (32.0-36.0) 05/23/19 06:38 RDW 12.8 % (11.8-14.1) 05/23/19 06:38 Plt Count 242 x1000/uL (130-400) 05/23/19 06:38 MPV 9.0 fL (8.0-11.0) 05/23/19 06:38 Immature Gran % 0.3 05/23/19 06:38 64.6 05/23/19 06:38 10.1 05/23/19 06:38 23.3 05/23/19 06:38 1.4 05/23/19 06:38 0.3 05/23/19 06:38 Absolute Neutrophils 12.49 k/cumm (1.2-6.7) H 05/23/19 06:38 Absolute Lymphocytes 1.95 k/cumm (1.2-3.4) 05/23/19 06:38 Absolute Monocytes 4.51 k/cumm (0.11-0.7) H 05/23/19 06:38 Absolute Eosinophils 0.27 k/cumm (0.0-0.7) 05/23/19 06:38 Absolute Basophils 0.06 k/cumm (0.0-0.2) 05/23/19 06:38 Agrees w/ instrument 05/23/19 06:38 RBC Morphology Normal 05/23/19 06:38 Sodium 143 mmol/L (136-145) 05/23/19 06:38 Potassium 4.0 mmol/L (3.5-5.1) 05/23/19 06:38 Chloride 108 mmol/L (98-107) H 05/23/19 06:38 Carbon Dioxide 26.4 mmol/L (21.0-32.0) 05/23/19 06:38 8.6 mmol/L (3-11) 05/23/19 06:38 BUN 11 mg/dL (7-18) D 05/23/19 06:38 0.91 mg/dL (0.70-1.30) 05/23/19 06:38 >= 60.00 (mL/min/1.73m2) 05/23/19 06:38 Glucose 106 mg/dL (70-100) H 05/23/19 06:38 1.0 mmol/L (0.6-1.4) 05/23/19 06:38 Calcium 8.1 mg/dL (8.5-10.1) L 05/23/19 06:38 Magnesium 1.8 mg/dL (1.8-2.4) 05/22/19 22:25 0.5 mg/dL (0.2-1.0) 05/22/19 22:25 AST 14 U/L (15-37) L 05/22/19 22:25 ALT 25 U/L (16-63) 05/22/19 22:25 119 U/L (46-116) H 05/22/19 22:25 7.2 g/dL (6.4-8.2) 05/22/19 22:25 3.6 g/dL (3.4-5.0) 05/22/19 22:25 Cancelled 05/23/19 22:25 Red (Yellow) 05/22/19 22:15 Cloudy (Clear) 05/22/19 22:15 7.0 (5-8) 05/22/19 22:15 Ur Specific [place] 1.015 (1.005-1.025) 05/22/19 22:15 100 mg/dL (Negative) H 05/22/19 22:15 Negative mg/dL (Negative) 05/22/19 22:15 Large (Negative) H 05/22/19 22:15 Negative (Negative) 05/22/19 22:15 Negative (Negative) 05/22/19 22:15 0.2 EU/dL (Up TO 0.2) 05/22/19 22:15 Ur Leukocyte Esterase Small (Negative) H 05/22/19 22:15 >50 (0-2) H 05/22/19 22:15 HPF (0-5) 05/22/19 22:15 Ur Epithelial Cells Not Applicable 05/22/19 22:15 Not Applicable 05/22/19 22:15 Not Applicable 05/22/19 22:15 Not Applicable 05/22/19 22:15 Ur Culture Indicated? Yes 05/22/19 22:15 Negative mg/dL (Negative) 05/22/19 22:15
[2019-05-23] MEDS: levoFLOXacin 500 MG, levoFLOXacin 250 MG 750 MG PO (09:00)
[2019-05-23] MEDS: Tamsulosin 0.4 MG CAPCR 0.8 MG PO (09:00)
[2019-05-23] MEDS: Enoxaparin 40 MG/0.4 ML SYR SC (10:36)
--- NOTE | 2019-05-23 13:45 | PDOC.CMIN ---
- If Service Date Differs Date of service: 05/23/19 Time of Service: 13:45 Care Management Initial Assess REASON FOR HOSPITALIZATION:: Fever, UTI w/ Sepsis PAST MEDICAL HISTORY/PAST SURGICAL HISTORY:: Medical History. BPH (benign prostatic hyperplasia). History of lower leg fracture. History of shoulder fracture PREVIOUS FUNCTIONAL STATUS/SOCIAL/FAMILY SUPPORTS:: Rey lives with his , Светлана, in [place]. He has two adult children. 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 He is independent at baseline. He does not enjoy being in the hospital, as he likes to stay busy. CURRENT FUNCTIONAL STATUS:: Rey was sitting up in his chair when CM entered the room. His , Светлана, was sitting in the room with him. He stated that he was ready to go home, and would like to leave as soon as possible. He said that the he was unaware of his plan of care at this time. He said he is feeling good, and that he has a follow up appointment already scheduled with Urology. CM will follow. ADVANCE DIRECTIVES:: None on file, CM will provide a copy of paperwork to complete. Has patient been provided with information about the portal?: Yes Did the patient sign up for the portal?: No (Not interested) CODE STATUS:: Full Code INSURANCE COVERAGE / FINANCIAL ISSUES:: Medicare CURRENT HOME/COMMUNITY SERVICES/EQUIPMENT:: Rey is indpendent at baseline with no serives or equipment. PRIMARY CARE PHYSICIAN:: Tylor William POTENTIAL DISCHARGE NEEDS:: Evaluation for further needs, follow up appoinments with PCP and specialists. PATIENT/FAMILY EDUCATION NEEDS:: Review discharge plan and instructions, discussion of self care needs upon discharge using [employer]. ANTICIPATED BARRIERS TO DISCHARGE:: None identified TRANSPORTATION:: Private vehicle driven by his , Светлана. PLAN:: Rey will continue with oral antibiotics and IV fluids for hydration. He will have a renal ultrasound and urology consult. His catheter will remain until his follow up appointment with urology. CM will follow.
--- NOTE | 2019-05-23 16:05 | PHARADMIT ---
Admission Pharmacy Clinical Review UTI w/sepsis Code Status Full Code Current Weight 69.7 kg Renally Cleared and Narrow Therapeutic Index Meds Crcl ~74.00 mL/min current meds okay QTc Value / Action Taken n/a BP Control, Fever BP 142/76 Tmax 38.2 today Electrolytes reviewed Cl 108 DVT Prophylaxis enoxaparin Opiate Usage / Scheduled Bowel Regimen Ordered no/prn Plt/SCr for Heparin / Enoxaparin plt 242 SCr 0.91 INR for Warfarin n/a H/H stable, WBC/Bands h/h 14.5/43.6 wbc 19.34 Antibiotic appropriateness PO levofloxacin Cultures and Sensitivities blood cultures pending urine culture grew gram negative rods Surgical ABX d/c within 24 hr n/a DM control / Insulin Dosing BG 106 none Heart Failure (Check EF%) (CELSO's, B-Block, Diuretics) none IV to PO Switch n/a Home Meds Reviewed yes Home Meds Not Ordered both ordered Comments
[2019-05-24] MEDS: Lactated Ringers 1,000 ML 125 ML IV ×2 (02:30→10:08)
[2019-05-24 04:08] VITALS: BP 134/67; PULSE 87; RESP 18; TEMP 37.3; O2SAT 97
--- NOTE | 2019-05-24 06:11 | NUR.NOTE ---
Nursing Note: 05/23/191929- pt transferred to med surg floor via [facility] med surg bed by RN's Marlene Lopes and Ese Ortiz. Pt stable and oriented.
[2019-05-24 07:34] LABS: BUN 10 mg/dL (7-18); CREATININE 0.82 mg/dL (0.70-1.30); Calcium 8.2 mg/dL (8.5-10.1); Chloride 108 mmol/L (98-107); Glucose 90 mg/dL (70-100); Magnesium 1.8 mg/dL (1.8-2.4); Potassium 3.9 mmol/L (3.5-5.1); Sodium 142 mmol/L (136-145)
[2019-05-24 07:35] VITALS: BP 116/68; PULSE 82; RESP 18; TEMP 36.7; O2SAT 94
[2019-05-24 07:36] LABS: Abs Immature Grans 0.03 k/cumm (0.0-0.09); Absolute Eosinophil Count 0.52 k/cumm (0.0-0.7); Absolute Lymphocyte Count 2.65 k/cumm (1.2-3.4); Absolute Monocyte Count 3.27 k/cumm (0.11-0.7); Basophils % 0.6; Eosinophils % 3.3; HCT 41.8 % (40.0-50.0); HGB 13.7 g/dL (13.5-17.5); Immature Grans % 0.2; Lymphocytes % 16.7; Mean Corp. HGB Concentration 32.8 g/dL (32.0-36.0); Mean Corpuscular Hemoglobin 27.9 pg (27.0-33.0); Mean Corpuscular Volume 85.1 fL (80-95); Mean Platelet Volume 9.7 fL (8.0-11.0); Monocytes % 20.6; Neutrophils % 58.6; Platelet Count 243 x1000/uL (130-400); RBC 4.91 m/cumm (4.50-6.00); RBC Distribution Width 12.8 % (11.8-14.1); White Blood Cell Count 15.86 k/cumm (4.4-10.8)
[2019-05-24 07:39] LABS: Absolute Neutrophil Count 9.29 k/cumm (1.2-6.7)
[2019-05-24] MEDS: Tamsulosin 0.4 MG CAPCR 0.8 MG PO (08:39)
[2019-05-24] MEDS: levoFLOXacin 500 MG, levoFLOXacin 250 MG 750 MG PO (08:39)
[2019-05-24] MEDS: Potassium Chloride 10 MEQ TABCR PO (09:49)
[2019-05-24] MEDS: Magnesium Oxide 400 MG TAB PO (09:49)
[2019-05-24 11:36] VITALS: BP 120/71; PULSE 86; RESP 18; TEMP 36.1; O2SAT 97
--- NOTE | 2019-05-24 15:22 | PDOC.CMDIS ---
- If Service Date Differs Date of service: 05/24/19 Time of Service: 15:22 LACE Index Scoring Tool - Questions: Length of Stay (in days): 3 Acuity (Admit via E.D.?): Yes E.D. Visits: 5 - Answers: Total Score: 10 Risk of Readmission: High Risk Care Management Discharge Reason for Hospitalization: Fever, UTI w/ Sepsis Discharge Plan: Rey will be discharged home today with his spouse Светлана. He will continue to have an indwelling thao until his follow up on 05/29/19 [facility] urology. No other services are needed Rey is comfortable managing the cath and does not feel he needs home health. Spouse will transport him home at time of discharge. Rey will continue antibioitcs for UTI as outpatient. Patient/Family Education Needs: Discharge education, limitations and follow up plan of care. Rey states he feels well and is ready for discharge.
[2019-05-24 15:34] VITALS: BP 120/72; PULSE 82; RESP 18; TEMP 36.7; O2SAT 96
--- NOTE | 2019-05-24 15:55 | W.PM.DS.N ---
Date of service: 05/24/19 Time of Service: 15:56 DS: Diagnosis Discharge Diagnosis (1) Complicated UTI (urinary tract infection): Start date: 05/24/19 Start time: 15:56 Status: Acute Asessment and Plan: UTI vs prostatitis likely due to thao insertion. Will finish a full 14 day course of levaquin and follow up with urology on . Appointment already scheduled. (2) BPH (benign prostatic hyperplasia): Status: Chronic Discharge Plan Disposition Patient Disposition: HOME Condition: Good Discharge Details Chief Complaint: Fever Clinical Impression: UTI (urinary tract infection), Sepsis Reason For Visit: UTI W/ SEPSIS Admit Date/Time: 05/23/19 01:51 Admit Provider: Emmett Dillard Attending Provider: Emmett Dillard Primary Care Provider: Tylor William [facility] Course: 69 y.o male with PMH of BPH with urinary retention who presented to Emergency department on 05/19 due to acute urinary retention of over 600 ml. Thao was inserted at that time and he was instructed to continue Flomax with f/u to urologist. On 05/20 he returned due to leakage around catheter and failure to drain at which time it was repositioned with good urine output and he returned home. 05/21 patient once again returns to emergency department for recurrent failure of the catheter draining along with urinary leakage with catheter dislodged. It was replaced and at this he presented with fever, rigors and elvated HR. Lactic acid was normal. He was admitted to m/s observation for UTI vs Prostatitis. Over the course of treatment he was started on rocephin with 2 Liters LR. Renal u/s was obtained with no abnormality. He refused exam of prostate. He was febrile but defervesced overnight after starting levaquin on 05/23. He has been afebrile for 24 hours with a decreasing white count. He feels great and would like to go home. He has a follow up with urology on . He will be discharged home with a catheter and course of levaquin for a total of 14 days. Recommend cbc in 3 days. He denies CP, SOB, n/v/d. Home Meds and New Rx's Prescriptions: New levofloxacin [Levaquin] 750 mg Tablet 750 mg PO QAM Qty: 24 RF: 0 Bio-K plus 50 billion cell capsule,delayed release(DR/EC) 1 cap PO DAILY AM Qty: 30 RF: 0 Continued oxybutynin chloride 5 mg tablet 5 mg PO BID-TID PRN (Reason: bladder spasms) Qty: 20 RF: 0 tamsulosin [Flomax] 0.4 mg Capsule 2 cap PO DAILY RF: 0 Discharge Instructions Instructions: Prostatitis (GEN), Urinary Tract Infection in Men (GEN), Catheter-associated Urinary Tract Infection (GEN) Additional Instructions: Follow up with Urology as scheduled Take all antibiotics as prescribed. Take Bio-K daily Recheck lab work in 3 days Seek medical attention if you have chest pain, shortness of breath, n/v/d/. Stand Alone Forms: Nursing Discharge Form Activity:: Activity as Tolerated Equipment/Supplies:: No Equipment Needed Diet:: As Tolerated Discharge Orders Discharge Orders: Discharge Order (Routine); Ordered 05/24/19 Ordered By: Radha Joseph Other Ambulatory Orders: Complete Blood Count w/Diff (Routine) Location: None Selected Ordered By: Radha Joseph Exam Const General: cooperative, no acute distress and well groomed Nutritional Appearance: average body habitus and well nourished Orientation: alert, awake and oriented x3 Neck Neck: normal visual inspection, full ROM, no lymphadenopathy, trachea midline and supple Thyroid: thyroid normal Carotids: normal carotid upstroke Lymphatic: no lymphadenopathy noted Chest Chest: normal inspection of the chest and normal palpation of entire chest wall Resp Effort & Inspection: normal respiratory effort and able to speak in complete sentences Auscultation: clear to auscultation bilaterally Percussion: percussion normal Cardio Jugular venous pressure: no JVD Palpation: normal PMI Rate: regular rate Rhythm: regular rhythm Heart Sounds: S1 normal, S2 normal and normal, physiologic split S2 Pulses: normal peripheral pulses GI Inspection: normal to inspection Palpation: soft, no hepatosplenomegaly and nontender Percussion: normal to percussion Auscultation: normal bowel sounds Rectal Exam: deferred General: bimanual renal exam normal bilaterally, bladder normal to inspection, No CVA tenderness and deferred (patient declined prostate exam) Back/Spine/Pelvis Back: no CVA tenderness Cervical Spine: normal cervical lordosis and cervical ROM normal Thoracic/Lumbar Spine: thoracic and lumbar spine normal to inspection and thoraco-lumbar ROM normal Skin General skin exam: no rashes or lesions noted, elasticity normal and turgor normal Lesions: no lesions Rashes: no rashes Trauma: no lacerations or abrasions Hair: normal Nails: normal Neuro General: alert, awake, oriented x3, moves all extremities and no focal motor deficits Cognition: normal cognition Speech: speech normal Extrem General: normal to inspection, full ROM, normal capillary refill, no joint enlargement, no clubbing, cyanosis or edema and no calf tenderness bilaterally Psych Appearance: grossly normal Mental Status: mental status grossly normal Speech and Movement: speech and movement normal Mood: congruent mood Affect: normal affect Attitude: cooperative Thought Process: normal Thought Content: normal Insight: insight good Judgment: judgment good DS: Data Vitals/I&O Vitals and I&O: Vital Signs Temperature 36.7 C 05/24/19 15:34 Temperature Source Tympanic 05/24/19 15:34 Pulse 82 05/24/19 15:34 Pulse Rhythm Regular 05/24/19 09:22 Pulse 104 H 05/23/19 16:00 Respiratory Rate 18 05/24/19 15:34 Respiratory Effort Non-Labored 05/24/19 09:22 Respiratory Depth Normal 05/24/19 09:22 Respiratory Pattern Normal 05/24/19 09:22 Blood Pressure 120/72 05/24/19 15:34 Blood Pressure Mean 86 05/23/19 15:41 Pulse Oximetry 96 05/24/19 15:34 Oxygen Delivery Method Room Air 05/24/19 15:34 Oxygen Flow Rate 0 05/24/19 15:34 Pain Level 0 05/24/19 11:36 Intake & Output 05/23/19 05/24/19 05/24/19 23:59 11:59 23:59 Intake Total 1305.833 / 3885.833 1954.167 / 3092.917 1138.75 / 3092.917 Output Total 3025 / 3950 550 / 900 350 / 900 Balance -1719.167 / -64.167 1404.167 / 2192.917 788.75 / 2192.917 Weight 61.5 kg Intake: IV 945.833 / 3045.833 1954.167 / 2372.917 418.75 / 2372.917 Oral 360 / 840 720 / 720 Output: Urine 3025 / 3950 550 / 900 350 / 900 Other: Urine Color Pale Pale Straw Urine Appearance Clear Clear Comment pt has small dots of blood in urine. says this is normal for him. Stool Occult Blood Negative Stool Size Moderate Stool Characteristics Formed Completed studies during hospitalization [Text1]: Exam(s) a US:US renal SYMPTOM/DIAGNOSIS: UTI W/SEPSIS, R/O PYELONEPHRITIS, ABSCESS RENAL ULTRASOUND: There are no prior comparison exams. The right kidney measures 10.9 cm in length. The left kidney measures 11.1 cm in length There is normal parenchymal thickness and parenchymal echogenicity. No hydronephrosis is seen. There is no evidence of perinephric collection. There is no gross evidence of pyelonephritis. Both ureteral jets were visualized. A Thao catheter is noted in the bladder with a volume of 39 cc. The prostate volume is 50 cc IMPRESSION: Negative renal ultrasound. Labs on day of discharge: Labs from last 24 hours 05/24/19 05/24/19 06:35 06:35 WBC 15.86 H RBC 4.91 Hgb 13.7 Hct 41.8 MCV 85.1 MCH 27.9 MCHC 32.8 RDW 12.8 Plt Count 243 MPV 9.7 Immature Gran % 0.2 Neutrophils % 58.6 Lymphocytes % 16.7 Monocytes % 20.6 Eosinophils % 3.3 Basophils % 0.6 Absolute Neutrophils 9.29 H Absolute Lymphocytes 2.65 Absolute Monocytes 3.27 H Absolute Eosinophils 0.52 Absolute Basophils 0.10 Sodium 142 Potassium 3.9 Chloride 108 H Carbon Dioxide 26.0 Anion Gap 8.0 BUN 10 Creatinine 0.82 Estimated GFR/1.73 m2 >= 60.00 Glucose 90 Calcium 8.2 L Magnesium 1.8 Preliminary micro results at discharge 05/22/19 22:35 Blood Culture - Preliminary Blood NO GROWTH 24 HOURS 05/22/19 22:25 Blood Culture - Preliminary Blood NO GROWTH 24 HOURS FOR[facility]LY [facility] Medical History BPH (benign prostatic hyperplasia) (Chronic) prior thao placement for urinary retention History of lower leg fracture (Acute) right History of shoulder fracture (Acute) left Family History Father Heart disease age 57 from [place] Mother No problems noted. Brother , unknown cause of No problems noted. Sister No problems noted. Sister No problems noted. Social History Smoking/Tobacco Use Status: Never Alcohol Intake: current Alcohol Intake frequency: holidays/special occasions only Drug use: Never Substance use type: does not use Do you feel safe at home: Yes Do you feel safe in your relationship?: Yes
== END 2019-05-24 16:45 | disposition home or self-care (01) ==
LOC: ER 05-23 02:07 → ICU 05-23 04:40 → MS 05-24 16:05 → ICU 05-28 11:47 → MS 05-28 11:48
PROVIDERS: Admitting Provider Internal Medicine; Emergency Provider Emergency Medicine; PCP Specialist/Technologist Athletic Trainer; Visit Provider Internal Medicine
DX: N39.0 Urinary tract infection, site not specified (principal); N40.1 Benign prostatic hyperplasia with lower urinary tract symptoms; B96.89 Other specified bacterial agents as the cause of diseases classified elsewhere; R33.8 Other retention of urine; R50.9 Fever, unspecified; R00.0 Tachycardia, unspecified; Z16.19 Resistance to other specified beta lactam antibiotics
CPT/HCPCS: 36415; 76770; 80048; 80053; 84145; 87040; 87077; 96361; 96365; 96375; 99220; 99239; 99285; J1650; NC; 81003; 81015; 83605; 83735; 85025; 87086; 87186; 99217; 99284; G0378; J0696

== ENCOUNTER 2019-05-27 09:28 | Outpatient (CLI) | payer MEDICARE, SELFPAY ==
[2019-05-27 12:29] LABS: HGB 15.1 g/dL (13.5-17.5); Mean Corp. HGB Concentration 32.8 g/dL (32.0-36.0); Mean Corpuscular Hemoglobin 27.9 pg (27.0-33.0); Mean Platelet Volume 9.7 fL (8.0-11.0); Platelet Count 301 x1000/uL (130-400); RBC 5.41 m/cumm (4.50-6.00); RBC Distribution Width 12.6 % (11.8-14.1); White Blood Cell Count 10.23 k/cumm (4.4-10.8)
[2019-05-27 13:06] LABS: Absolute Lymphocyte Count 2.46 k/cumm (1.2-3.4); Absolute Monocyte Count 1.13 k/cumm (0.11-0.7); Absolute Neutrophil Count 6.55 k/cumm (1.2-6.7); Atypical Lymphocytes % 4; Diff Comment Manual Differential; RBC Morphology Normal
== END 2019-05-27 09:48 ==
PROVIDERS: PCP Specialist/Technologist Athletic Trainer; Visit Provider Specialist/Technologist Athletic Trainer
DX: N39.0 Urinary tract infection, site not specified (principal)
CPT/HCPCS: 36415; 85025

== ENCOUNTER → 2019-05-29 08:26 | Outpatient (BNVA) | payer MEDICARE, SELFPAY | PROVIDERS: PCP Specialist/Technologist Athletic Trainer; Visit Provider Nurse Practitioner Gerontology | DX: N40.1 Benign prostatic hyperplasia with lower urinary tract symptoms (principal); R33.9 Retention of urine, unspecified; Z46.6 Encounter for fitting and adjustment of urinary device | CPT/HCPCS: 99213 ==

== ENCOUNTER → 2019-06-03 09:53 | Outpatient (BNVA) | payer MEDICARE, SELFPAY | PROVIDERS: PCP Specialist/Technologist Athletic Trainer; Visit Provider Nurse Practitioner Gerontology | DX: N40.0 Benign prostatic hyperplasia without lower urinary tract symptoms (principal); R97.20 Elevated prostate specific antigen [PSA]; Z87.440 Personal history of urinary (tract) infections; N40.2 Nodular prostate without lower urinary tract symptoms; R35.0 Frequency of micturition | CPT/HCPCS: 51798; 81003; 99214 ==

== ENCOUNTER 2019-06-26 08:48 | Outpatient (CLI) | payer MEDICARE, SELFPAY ==
[2019-06-27 08:44] LABS: PSA, Screening 13.3 ng/ml (0-4.5)
== END 2019-06-26 09:08 ==
PROVIDERS: PCP Specialist/Technologist Athletic Trainer; Visit Provider Nurse Practitioner Gerontology
DX: N40.0 Benign prostatic hyperplasia without lower urinary tract symptoms (principal); R97.20 Elevated prostate specific antigen [PSA]; Z12.5 Encounter for screening for malignant neoplasm of prostate
CPT/HCPCS: 36415; 84153

== ENCOUNTER → 2019-07-01 08:56 | Outpatient (BNVA) | payer MEDICARE, SELFPAY | PROVIDERS: PCP Specialist/Technologist Athletic Trainer; Referring Provider Specialist/Technologist Athletic Trainer; Visit Provider Nurse Practitioner Gerontology | DX: N40.2 Nodular prostate without lower urinary tract symptoms (principal); R97.20 Elevated prostate specific antigen [PSA] | CPT/HCPCS: 99213 ==

== ENCOUNTER 2019-07-04 00:13 | Outpatient (CLI) | payer MEDICARE, SELFPAY ==
--- NOTE | 2019-07-04 07:18 | DI.US_ITS ---
EXAM: US PROSTATE BIOPSY CLINICAL HISTORY: elevated PSA; prostate nodule, N40.2. TECHNIQUE: Ultrasound performed using standard protocol. COMPARISON: US renal from 05/23/2019 FINDINGS: Under ultrasound guidance, Dr. Woodall performed a biopsy of the prostate. The prostatic volume is 56.[address] Woodall's report for further information.
--- NOTE | 2019-07-04 13:45 | PROST_PTH ---
PATIENT: Rey Jean Baptiste LOC: [facility] U#:[id number] AGE/SX: 69/M ROOM: RE07/04/[address]: Geraldine Carolina DNP : 1950 BED: DIS: 07/04/2019 SPEC #: [id number] RECD: 07/04/19 17:26 STATUS: EDWIN MI #: [id number] ABAD: 07/04/19 13:[address]: Geraldine Carolina DEPT: Surgical Specimen RECD BY: Carol Guallpa ENTERED: 07/04/19 17:28 SP TYPE: PROST OTHR DR: Tylor William Tissues: 1 - PROSTATE NEEDLE BIOPSY 2 - PROSTATE NEEDLE BIOPSY 3 - PROSTATE NEEDLE BIOPSY 4 - PROSTATE NEEDLE BIOPSY 5 - PROSTATE NEEDLE BIOPSY 6 - PROSTATE NEEDLE BIOPSY 7 - PROSTATE NEEDLE BIOPSY 8 - PROSTATE NEEDLE BIOPSY 9 - PROSTATE NEEDLE BIOPSY 10 - PROSTATE NEEDLE BIOPSY 11 - PROSTATE NEEDLE BIOPSY 12 - PROSTATE NEEDLE BIOPSY Procedures: GROSS AND MICRO LEVEL 4 IMMUNOPEROXIDASE STAIN Comments: [id number]
--- NOTE | 2019-07-04 15:16 | ROE_ITS ---
DATE OF PROCEDURE: July 04, 2019 PRE-PROCEDURE DIAGNOSIS: Elevated PSA. POST-PROCEDURE DIAGNOSIS: Same. PROCEDURE: Transrectal ultrasound-guided biopsy of the prostate. SURGEON: Jean-Claude Woodall M.D. ANESTHESIA: Local. COMPLICATIONS: None. HISTORY: This is a 69-year-old gentleman who was identified as having an elevated PSA of 13.5 ng/mL as well as a firm area on the left side of his prostate. He presents for ultrasound-guided biopsy. PROCEDURE: The patient was given a pre-procedure antibiotic and mechanical bowel prep. He was broug ht to the radiology suite on 07/04/19. He was placed in the left lateral position. Digital rectal exam confirmed the presence of the prosta tic nodule. Transrectal imaging of the prostate was performed using a variable megahertz transducer. The prostate was inspected in transverse and longitudinal planes. The prostate was asymmetric with the right side being much larger than the left. The prostatic volum e was calculated at 54 cc's. A hypoechoic area was identified in the peripheral zone in the midline. No laterally-noted hypoechoic areas were seen. Multiple cystic and hypoechoic lesions were identif ied within the transition zone. A periprostatic nerve block was then performed using 1% Xylocaine. A total of twelve laterally-direc jagruti biopsies were taken and sent to Pathology for permanent section. The patient tolerated this procedure with no complications. cc: Tylor William M.D.
== END 2019-07-04 00:33 ==
PROVIDERS: PCP Specialist/Technologist Athletic Trainer; Visit Provider Nurse Practitioner Gerontology
DX: N40.2 Nodular prostate without lower urinary tract symptoms (principal); C61 Malignant neoplasm of prostate; R97.20 Elevated prostate specific antigen [PSA]
CPT/HCPCS: 55700; 76942; 76872; 88305; 88361

== ENCOUNTER → 2019-07-18 14:54 | Outpatient (BNVA) | payer MEDICARE, SELFPAY | PROVIDERS: PCP Specialist/Technologist Athletic Trainer; Referring Provider Specialist/Technologist Athletic Trainer; Visit Provider Urology | DX: C61 Malignant neoplasm of prostate (principal); R97.20 Elevated prostate specific antigen [PSA] | CPT/HCPCS: 99213 ==

== ENCOUNTER 2019-07-25 00:39 | Outpatient (CLI) | payer MEDICARE, SELFPAY ==
--- NOTE | 2019-07-25 07:23 | DI.CT_ITS ---
EXAM: CT ABDOMEN PELVIS W CLINICAL HISTORY: r/o mets, prostate cancer, C61 TECHNIQUE: Images were performed from the lung bases through the ischial tuberosities after IV and o ral contrast. COMPARISON: No exams were available for comparison FINDINGS: The lung bases are clear. No pleural or pericardial effusions are seen. The liver shows several cys ts. The gallbladder, spleen, adrenals and pancreas are unremarkable. There are tiny bilateral renal cysts. No stones, hydronephrosis or masses are seen. The prostate is enlarged and shows heterogene ous enhancement. There is impression on the base of the bladder. There is mild circumferential blad daquan wall thickening. No bladder calculi or bladder masses are seen. There are small bilateral hydroc eles. The appendix appears normal. There is moderate to increased quantity of stool. There is no g ross evidence of a mass. The small bowel and stomach are unremarkable. No adenopathy is seen in the abdomen or pelvis. The aorta is normal in diameter and shows atherosclerotic changes. Atherosclero tic changes are also seen in the iliac arteries. There is mild dilatation of the left iliac artery t o 1.5 cm. There is mural thrombus. No lytic or blastic bony lesions are seen. Postsurgical and deg enerative changes are seen in the spine. There are degenerative changes of the right hip. IMPRESSION: Enlarged prostate. Mildly thick-walled bladder. No evidence of adenopathy or metastatic disease.
--- NOTE | 2019-07-25 07:23 | DI.NM_ITS ---
EXAM: NM BONE SCAN WHOLE BODY GRP CLINICAL HISTORY: r/o mets, prostate cancer, C 61. TECHNIQUE: Injected Dose: 25 mCi Tc-99m MDP Delayed Images: 2-3 hours. Whole body images and spot images of the chest, pelvis and lateral views of the head and neck were performed. COMPARISON: CT ABDOMEN PELVIS W from 07/25/2019 FINDINGS: Symmetric axial skeletal uptake. Bilateral renal excretion is identified. No focal area of intense s uspicious uptake is seen. There is a small focus of increased activity in the mid left lateral rib which is nonspecific, presumably posttraumatic. There is mildly increased activity in both superior acetabular, consistent with degenerative changes. Mildly increased activity is also seen in the shou lders, right greater than left, also consistent with degenerative changes. IMPRESSION: 1. No evidence of metastatic disease.
[2019-07-25] MEDS: Breeza Beverage 473 ML BTL PO ×2 (07:34→07:35)
[2019-07-25] MEDS: Omnipaque 350 MG/ML 50 ML BTL PO (07:34)
[2019-07-25 08:25] LABS: CREATININE 0.91 mg/dL (0.70-1.30)
[2019-07-25] MEDS: Omnipaque 350 MG/ML 100 ML BTL IV (09:09)
== END 2019-07-25 00:59 ==
PROVIDERS: PCP Specialist/Technologist Athletic Trainer; Visit Provider Urology
DX: C61 Malignant neoplasm of prostate (principal); M19.011 Primary osteoarthritis, right shoulder; M19.012 Primary osteoarthritis, left shoulder; Z12.89 Encounter for screening for malignant neoplasm of other sites; N32.9 Bladder disorder, unspecified; K76.89 Other specified diseases of liver; N43.3 Hydrocele, unspecified
CPT/HCPCS: 78306; 99213; 74177; 82565; J3490; Q9967

== ENCOUNTER → 2019-11-07 10:46 | Outpatient (BNVA) | payer MEDICARE, SELFPAY | PROVIDERS: PCP Specialist/Technologist Athletic Trainer; Referring Provider Specialist/Technologist Athletic Trainer; Visit Provider Urology | DX: R35.0 Frequency of micturition (principal); R39.15 Urgency of urination | CPT/HCPCS: 81003; 99213 ==

== ENCOUNTER 2019-11-08 15:22 | Emergency (ER) | payer MEDICARE, SELFPAY ==
[2019-11-08 15:26] VITALS: BP 154/87; PULSE 97; RESP 18; TEMP 37.8; O2SAT 97
[2019-11-08 15:59] LABS: Bilirubin Negative (Negative); Blood Negative (Negative); Clarity Clear (Clear); Glucose Negative (Negative); Ketones Negative (Negative); Leukocyte Esterase Negative (Negative); Nitrite Negative (Negative); Specific Gravity 1.015 (1.005-1.025); Urobilinogen 0.2 EU/dL (Up TO 0.2); pH 6.5 (5-8)
[2019-11-08] MEDS: Lidocaine 2% Jelly 6 ML SYR (16:10)
--- NOTE | 2019-11-08 16:18 | ED.GENADUL_ITS ---
Discharge Plan Disposition Patient Disposition: HOME Condition: Stable Discharge Details Chief Complaint: Urinary Clinical Impression: Acute urinary retention Primary Care Provider: Tylor William ED Provider: Kain Cisse Home Meds and New Rx's Prescriptions: Continued tamsulosin [Flomax] 0.4 mg capsule 0.8 mg PO DAILY Qty: 60 RF: 11 bicalutamide 50 mg Tablet 50 mg PO HS RF: 0 No Action oxybutynin chloride 5 mg tablet 5 mg PO QHS MDD 3 tabs PRN (Reason: bladder spasms) Qty: 14 RF: 0 Discharge Instructions Instructions: Urinary Retention in Men (ED), Thao Catheter Placement and Care (ED) Additional Instructions: Please follow-up with your urologist on Sunday. Be sure to discuss medication. Please contact your primary care physician to arrange follow-up. Return to the ER for any worsening or new concerning symptoms. Referrals: Jean-Claude Woodall MD [ [facility] STAFF PHYSICIAN] - Tylor William [Primary Care Provider] - Medical Decision Making 69-year-old male with history of prostate cancer currently on radiation and hormonal therapy, here with urinary retention. Bladder scan was performed by nursing and patient has greater than 700 mL retention. A Thao catheter was placed by nursing without complication and patient had 700 mL clear yellow output. Urinalysis was reviewed and interpreted by me: No hematuria, no leukourea. Urinalysis is not consistent with infection. Plan to discharge with outpatient follow-up with urology to be scheduled for next week. Patient is to maintain Thao catheter. Usual and customary discharge instructions were provided. HPI General Mode of arrival: ambulatory . Date/Time Provider Initiated Documentation: 11/08/19 15:53 . Limitations to Documentation: no limitations . Information obtained by: patient . HPI Narrative: 69-year-old male with history of prostate cancer, currently undergoing radiation and hormonal therapy, followed by urology clinic, here with 3 days of waxing and waning urinary retention, now worse despite oxybutynin. Patient notes sense of incomplete emptying, frequent small urination, fullness in lower abdomen. Symptoms are now moderate to severe. Patient has had similar in the past and required Thao catheter. Related Data Home Medications Medication Instructions Recorded Confirmed tamsulosin 0.4 mg capsule 0.8 mg PO DAILY #60 cap 09/05/19 02/15/20 oxybutynin chloride 5 mg tablet 5 mg PO QHS PRN #14 tab MDD 3 tabs 11/07/19 11/08/19 bicalutamide 50 mg PO HS 11/08/19 11/08/19 Previous Rx's Medication Instructions Recorded tamsulosin 0.4 mg capsule 0.8 mg PO DAILY #60 cap 05/29/19 oxybutynin chloride 5 mg tablet 5 mg PO QHS PRN #14 tab MDD 3 tabs 11/07/19 Allergies Allergy/AdvReac Type Severity Reaction Status Date / Time No Known Allergies Allergy Verified 11/08/19 15:36 General Stated Complaint: Urinary JODIE: 3 Review of Systems Constitutional Constitutional: Denies fever(s) Gastrointestinal Gastrointestinal: Denies nausea and Denies vomiting Genitourinary Genitourinary: Reports as per [facility] Medical History BPH (benign prostatic hyperplasia) (Chronic) prior thao placement for urinary retention Complicated UTI (urinary tract infection) (Inactive) Elevated PSA (Inactive) History of lower leg fracture (Acute) right History of shoulder fracture (Acute) left Prostate cancer (Chronic) Prostate nodule (Inactive) Family History Father Heart disease age 57 from [place] Mother No problems noted. Brother , unknown cause of No problems noted. Sister No problems noted. Sister No problems noted. Social History Smoking/Tobacco Use Status: Never Alcohol Intake: current Alcohol Intake frequency: holidays/special occasions only Drug use: Never Substance use type: does not use Do you feel safe at home: Yes Do you feel safe in your relationship?: Yes Exam Const General: cooperative and no acute distress HENMT Mouth: moist mucous membranes Eyes Conjunctivae: normal conjunctivae Sclera: normal sclerae Neck Neck: trachea midline and supple Resp Auscultation: clear to auscultation bilaterally, no rales, no rhonchi and no wheezes Cardio Jugular venous pressure: no JVD Rate: regular rate and not tachycardic Rhythm: regular rhythm GI Palpation: soft, not firm, no guarding, no masses, not rigid and nontender Skin General skin exam: no rashes or lesions noted Neuro General: alert, awake and tone normal Extrem General: no edema Psych Appearance: grossly normal Mental Status: mental status grossly normal Course Vital Signs Vital signs: Vital Signs Temperature 37.8 C H 11/08/19 15:26 Pulse 97 H 11/08/19 15:26 Respiratory Rate 18 11/08/19 15:26 Blood Pressure 154/87 H 11/08/19 15:26 Pulse Oximetry 97 11/08/19 15:26 Temperature 37.8 C H 11/08/19 15:26 Temperature Source Skin 11/08/19 15:26 Pulse 97 H 11/08/19 15:26 Respiratory Rate 18 11/08/19 15:26 Respiratory Effort Non-Labored 11/08/19 15:31 Blood Pressure 154/87 H 11/08/19 15:26 Blood Pressure Position Sitting 11/08/19 15:26 Pulse Oximetry 97 11/08/19 15:26 Oxygen Delivery Method Room Air 11/08/19 15:26 Oxygen Flow Rate 0 11/08/19 15:26 Pain Level 5 11/08/19 15:37 Lab/Test Results Lab/Test Results: Laboratory Tests Range/Units 11/08/19 15:35 Urine Color (Yellow) Yellow Urine Clarity (Clear) Clear Urine pH (5-8) 6.5 Ur Specific [place] (1.005-1.025) 1.015 Urine Protein (Negative) mg/dL Negative Urine Ketones (Negative) mg/dL Negative Urine Blood (Negative) Negative Urine Nitrite (Negative) Negative Urine Bilirubin (Negative) Negative Urine Urobilinogen (Up TO 0.2) EU/dL 0.2 Ur Leukocyte Esterase (Negative) Negative Urine Glucose (Negative) mg/dL Negative
--- NOTE | 2019-11-08 18:32 | NUR.NOTE ---
Referral faxed [facility] Woodall.Nursing Note:
== END 2019-11-08 16:42 | disposition home or self-care (01) ==
PROVIDERS: Emergency Provider Student in an Organized Health Care Education/Training Program; PCP Specialist/Technologist Athletic Trainer
DX: R33.8 Other retention of urine (principal); C61 Malignant neoplasm of prostate; Z79.818 Long term (current) use of other agents affecting estrogen receptors and estrogen levels
CPT/HCPCS: 51702; 99283; 81003

== ENCOUNTER → 2019-11-11 12:57 | Outpatient (BNVA) | payer MEDICARE, SELFPAY | PROVIDERS: PCP Specialist/Technologist Athletic Trainer; Referring Provider Specialist/Technologist Athletic Trainer; Visit Provider Urology | DX: C61 Malignant neoplasm of prostate (principal); R33.8 Other retention of urine; Z96.0 Presence of urogenital implants | CPT/HCPCS: 99213 ==

== ENCOUNTER 2020-01-12 08:50 | Outpatient (CLI) | payer MEDICARE, SELFPAY ==
[2020-01-12 09:45] LABS: Bilirubin Negative (Negative); Blood Trace-intact (Negative); Clarity Clear (Clear); Glucose Negative (Negative); Ketones Negative (Negative); Leukocyte Esterase Negative (Negative); Nitrite Negative (Negative); Specific Gravity >= 1.030 (1.005-1.025); Urobilinogen 0.2 EU/dL (Up TO 0.2); pH 5.5 (5-8)
[2020-01-12 10:11] LABS: WBC >50 HPF (0-5)
[2020-01-12 10:12] LABS: Bacteria Moderate HPF (Negative); C & S Indicated? Yes; Casts 0-2 Coarse Granular LPF (Negative); Crystals Negative HPF (Negative); Epithelial Cells Negative HPF (Negative); Mucus Moderate (Negative); Other Cells Rare Renal (Negative); RBC 0-2 HPF (0-2)
== END 2020-01-12 09:10 ==
PROVIDERS: PCP Specialist/Technologist Athletic Trainer; Visit Provider Radiology Radiation Oncology
DX: C61 Malignant neoplasm of prostate (principal); R30.0 Dysuria
CPT/HCPCS: 81003; 81015; 87086

== ENCOUNTER 2020-01-14 01:48 | Outpatient (CLI) | payer MEDICARE, SELFPAY ==
[2020-01-15 14:52] LABS: PSA, Ultrasensitive 0.02 ng/mL (<= 4.5)
[2020-01-17 00:18] LABS: Testosterone, Total 7.9 ng/dL (240-950)
== END 2020-01-14 02:08 ==
PROVIDERS: PCP Specialist/Technologist Athletic Trainer; Visit Provider Radiology Radiation Oncology
DX: C61 Malignant neoplasm of prostate (principal)
CPT/HCPCS: 36415; 84153; 84403

== ENCOUNTER 2020-03-03 12:53 | Outpatient (REF) | payer MEDICARE, SELFPAY ==
[2020-03-03 22:39] LABS: Abs Immature Grans 0.03 k/cumm (0.0-0.09); Absolute Basophil Count 0.04 k/cumm (0.0-0.2); Absolute Eosinophil Count 0.19 k/cumm (0.0-0.7); Absolute Lymphocyte Count 1.19 k/cumm (1.2-3.4); Absolute Monocyte Count 1.74 k/cumm (0.11-0.7); Absolute Neutrophil Count 6.59 k/cumm (1.2-6.7); Basophils % 0.4; Eosinophils % 1.9; HCT 44.5 % (40.0-50.0); HGB 14.6 g/dL (13.5-17.5); Immature Grans % 0.3 %; Lymphocytes % 12.2; Mean Corp. HGB Concentration 32.8 g/dL (32.0-36.0); Mean Corpuscular Hemoglobin 27.9 pg (27.0-33.0); Mean Corpuscular Volume 85.1 fL (80-95); Mean Platelet Volume 9.5 fL (8.0-11.0); Monocytes % 17.8; Neutrophils % 67.4; Platelet Count 228 x1000/uL (130-400); RBC 5.23 m/cumm (4.50-6.00); RBC Distribution Width 12.4 % (11.8-14.1); White Blood Cell Count 9.78 k/cumm (4.4-10.8)
[2020-03-03 22:54] LABS: Hemoglobin A1C 5.6 % (3.8-5.6)
[2020-03-03 23:27] LABS: ALT 34 U/L (16-63); AST 26 U/L (15-37); Albumin 3.7 g/dL (3.4-5.0); Alkaline Phosphatase 139 U/L (46-116); Anion Gap 9.4 mmol/L (3-11); BUN 18 mg/dL (7-18); Bilirubin, Total 0.3 mg/dL (0.2-1.0); CO2 26.6 mmol/L (21.0-32.0); CREATININE 0.95 mg/dL (0.70-1.30); Calcium 8.9 mg/dL (8.5-10.1); Calculated LDL 153 mg/dL (<100); Chloride 108 mmol/L (98-107); Cholesterol 209 mg/dL (<200); Ferritin 123 ng/mL (26-388); Glucose 96 mg/dL (74-106); HDL Cholesterol 41 mg/dL (40-60); Magnesium 2.1 mg/dL (1.8-2.4); Potassium 4.7 mmol/L (3.5-5.1); Sodium 144 mmol/L (136-145); Total Protein 6.9 g/dL (6.4-8.2); Triglyceride 78 mg/dL (<150); Vitamin B12 697 pg/mL (193-986)
[2020-03-03 23:31] LABS: Diff Comment Agrees w/ Instrument; RBC Morphology Normal
[2020-03-03 23:40] LABS: Creatine Kinase 41 U/L (39-308)
[2020-03-05 10:12] LABS: Lyme Ab w Rflx to Lyme Confirm Negative (Negative)
[2020-03-08 19:22] LABS: Anaplasma phagocytophilum Negative (Negative); B. miyamotoi PCR Negative (Negative); Babesia divergens/MO-1 Negative (Negative); Babesia duncani Negative (Negative); Babesia microti Negative (Negative); Ehrlichia chaffeensis Negative (Negative); Ehrlichia ewingii/canis Negative (Negative); Ehrlichia muris eauclairensis Negative (Negative)
== END 2020-03-03 13:13 ==
LOC: NCHCN 12:53
PROVIDERS: PCP Specialist/Technologist Athletic Trainer; Visit Provider Physician Assistant Medical
DX: G62.9 Polyneuropathy, unspecified (principal); M79.669 Pain in unspecified lower leg; R74.8 Abnormal levels of other serum enzymes; R79.89 Other specified abnormal findings of blood chemistry; E78.89 Other lipoprotein metabolism disorders
CPT/HCPCS: 80053; 80061; 82550; 87798; 82607; 82728; 83036; 83735; 85025; 86618

== ENCOUNTER 2020-03-17 01:48 | Outpatient (CLI) | payer MEDICARE, SELFPAY ==
--- NOTE | 2020-03-17 | DI.RAD_ITS ---
EXAM: XR LUMBAR SPINE COMPLETE CLINICAL HISTORY: NEUROPATHY,G62.9 TECHNIQUE: COMPARISON: No exams were available for comparison FINDINGS: Five views were obtained. The SI joints appear fused superiorly on both sides. There are prominent hypertrophic endplate changes at multiple lumbar levels. There is narrowing of the intervertebral di sc spaces at each level from L2-3 through L5-S1. There are prominent hypertrophic facet changes thro ughout the lumbar region, no gross spondylolysis or spondylolisthesis. IMPRESSION: Hypertrophic degenerative changes as described above. Bilateral partial SI joint effusion noted as w ell.
== END 2020-03-17 02:08 ==
PROVIDERS: PCP Specialist/Technologist Athletic Trainer; Visit Provider Physician Assistant Medical
DX: Z98.1 Arthrodesis status (principal); G62.9 Polyneuropathy, unspecified; M51.37 Other intervertebral disc degeneration, lumbosacral region
CPT/HCPCS: 72110

== ENCOUNTER 2020-05-18 03:26 | Outpatient (CLI) | payer MEDICARE, SELFPAY ==
[2020-05-19 19:05] LABS: PSA, Ultrasensitive <0.01 ng/mL (<= 6.5)
[2020-05-21 14:47] LABS: Testosterone, Total <7.0 ng/dL (240-950)
== END 2020-05-18 03:46 ==
PROVIDERS: PCP Specialist/Technologist Athletic Trainer; Visit Provider Radiology Radiation Oncology
DX: C61 Malignant neoplasm of prostate (principal)
CPT/HCPCS: 36415; 84153; 84403

== ENCOUNTER 2020-08-18 02:30 | Outpatient (CLI) | payer MEDICARE, SELFPAY ==
[2020-08-18 09:22] LABS: Abs Immature Grans 0.01 10^3/uL (0.0-0.06); Absolute Basophil Count 0.06 10^3/uL (0.0-0.2); Absolute Eosinophil Count 0.18 10^3/uL (0.0-0.7); Absolute Lymphocyte Count 1.23 10^3/uL (1.2-3.4); Absolute Monocyte Count 1.26 10^3/uL (0.1-0.8); Absolute Neutrophil Count 4.63 10^3/uL (1.2-6.7); Basophils % 0.8; Eosinophils % 2.4; HCT 43.1 % (40.0-50.0); HGB 13.7 g/dL (13.5-17.5); Immature Grans % 0.1; Lymphocytes % 16.7; MCH 27.1 pg (27.0-33.0); MCHC 31.8 % (32.0-36.0); MCV 85.2 fL (80-95); MPV 9.3 fL (8.0-11.0); Monocytes % 17.1; Neutrophils % 62.9; Nucleated RBC 0 %; Platelet Count 205 10^3/uL (130-400); RBC 5.06 10^6/uL (4.36-5.78); RDW 11.9 % (11.8-14.1); RDW-SD 37.1 fL; WBC 7.37 10^3/uL (4.4-10.8)
[2020-08-20 15:46] LABS: PSA, Ultrasensitive <0.01 ng/mL (<= 6.5)
[2020-08-23 11:18] LABS: Testosterone, Total 8.8 ng/dL (240-950)
== END 2020-08-18 02:50 ==
PROVIDERS: Nurse Practitioner Family; PCP Specialist/Technologist Athletic Trainer; Visit Provider Radiology Radiation Oncology
DX: C61 Malignant neoplasm of prostate (principal)
CPT/HCPCS: 36415; 84153; 84403; 85025

== ENCOUNTER 2020-11-08 01:59 | Outpatient (CLI) | payer MEDICARE, SELFPAY ==
[2020-11-08 08:27] LABS: Abs Immature Grans 0.03 10^3/uL (0.0-0.06); Absolute Basophil Count 0.06 10^3/uL (0.0-0.2); Absolute Eosinophil Count 0.21 10^3/uL (0.0-0.7); Absolute Lymphocyte Count 1.16 10^3/uL (1.2-3.4); Absolute Monocyte Count 1.11 10^3/uL (0.1-0.8); Basophils % 0.8; Eosinophils % 2.8; HCT 43.3 % (40.0-50.0); HGB 14.3 g/dL (13.5-17.5); Immature Grans % 0.4; Lymphocytes % 15.5; MCH 27.4 pg (27.0-33.0); MCV 83.1 fL (80-95); MPV 8.7 fL (8.0-11.0); Monocytes % 14.9; Neutrophils % 65.6; Nucleated RBC 0 %; Platelet Count 195 10^3/uL (130-400); RBC 5.21 10^6/uL (4.36-5.78); RDW 11.9 % (11.8-14.1); RDW-SD 36.2 fL; WBC 7.47 10^3/uL (4.4-10.8)
[2020-11-09 16:38] LABS: PSA, Ultrasensitive <0.01 ng/mL (<= 6.5)
[2020-11-10 12:09] LABS: Testosterone, Total 9.3 ng/dL (240-950)
== END 2020-11-08 02:00 | disposition home or self-care (01) ==
PROVIDERS: PCP Nurse Practitioner; Visit Provider Nurse Practitioner Family
DX: C61 Malignant neoplasm of prostate (principal)
CPT/HCPCS: 36415; 84153; 84403; 85025

== ENCOUNTER → 2020-11-11 14:28 | Outpatient (BNVA) | payer MEDICARE, SELFPAY | PROVIDERS: PCP Nurse Practitioner; Referring Provider Specialist/Technologist Athletic Trainer; Visit Provider Nurse Practitioner Gerontology | DX: C61 Malignant neoplasm of prostate (principal); N40.1 Benign prostatic hyperplasia with lower urinary tract symptoms; R35.0 Frequency of micturition | CPT/HCPCS: 99213 ==

== ENCOUNTER 2021-02-04 15:18 | Outpatient (REF) | payer MEDICARE, SELFPAY ==
[2021-02-04 16:51] LABS: Calculated LDL 80 mg/dL (<100); Cholesterol 146 mg/dL (<200); HDL Cholesterol 39 mg/dL (40-60); Triglyceride 135 mg/dL (<150)
== END 2021-02-04 15:19 | disposition home or self-care (01) ==
LOC: NCHCN 15:18
PROVIDERS: PCP Nurse Practitioner; Visit Provider Nurse Practitioner Family
DX: E78.89 Other lipoprotein metabolism disorders (principal); Z00.00 Encounter for general adult medical examination without abnormal findings
CPT/HCPCS: 80061

== ENCOUNTER 2021-02-10 03:17 | Outpatient (CLI) | payer MEDICARE, SELFPAY ==
[2021-02-11 17:12] LABS: PSA, Ultrasensitive <0.01 ng/mL (<= 6.5)
[2021-02-14 16:23] LABS: Testosterone, Total 7.9 ng/dL (240-950)
== END 2021-02-10 03:18 | disposition home or self-care (01) ==
PROVIDERS: PCP Nurse Practitioner; Visit Provider Nurse Practitioner
DX: C61 Malignant neoplasm of prostate (principal)
CPT/HCPCS: 36415; 84153; 84403

== ENCOUNTER 2021-05-09 03:18 | Outpatient (CLI) | payer MEDICARE, SELFPAY ==
[2021-05-10 13:16] LABS: PSA, Ultrasensitive <0.01 ng/mL (<= 6.5)
[2021-05-12 09:56] LABS: Testosterone, Total <7.0 ng/dL (240-950)
== END 2021-05-09 03:19 | disposition home or self-care (01) ==
LOC: LBO 03:19
PROVIDERS: PCP Nurse Practitioner; Visit Provider Nurse Practitioner Family
DX: C61 Malignant neoplasm of prostate (principal)
CPT/HCPCS: 36415; 84153; 84403

== ENCOUNTER 2021-08-16 04:17 | Outpatient (CLI) | payer MEDICARE, SELFPAY ==
[2021-08-18 07:04] LABS: Testosterone, Total <7.0 ng/dL (240-950)
[2021-08-19 15:08] LABS: PSA, Ultrasensitive <0.01 ng/mL (<= 6.5)
== END 2021-08-16 04:18 | disposition home or self-care (01) ==
LOC: LBO 04:18
PROVIDERS: PCP Nurse Practitioner; Visit Provider Nurse Practitioner
DX: C61 Malignant neoplasm of prostate (principal)
CPT/HCPCS: 36415; 84153; 84403

== ENCOUNTER 2021-11-07 01:32 | Outpatient (CLI) | payer MEDICARE, SELFPAY ==
[2021-11-07 08:41] LABS: Abs Immature Grans 0.03 10^3/uL (0.0-0.06); Absolute Basophil Count 0.06 10^3/uL (0.0-0.2); Absolute Eosinophil Count 0.25 10^3/uL (0.0-0.7); Absolute Lymphocyte Count 1.57 10^3/uL (1.2-3.4); Absolute Monocyte Count 1.22 10^3/uL (0.1-0.8); Absolute Neutrophil Count 4.66 10^3/uL (1.2-6.7); Basophils % 0.8; Eosinophils % 3.2; HCT 43.1 % (40.0-50.0); HGB 13.6 g/dL (13.5-17.5); Immature Grans % 0.4; Lymphocytes % 20.2; MCH 26.7 pg (27.0-33.0); MCHC 31.6 % (32.0-36.0); MCV 84.5 fL (80-95); MPV 9.2 fL (8.0-11.0); Monocytes % 15.7; Neutrophils % 59.7; Nucleated RBC 0 %; Platelet Count 222 10^3/uL (130-400); RDW 12.6 % (11.8-14.1); RDW-SD 38.7 fL; WBC 7.79 10^3/uL (4.4-10.8)
[2021-11-07 08:55] LABS: ALT 21 U/L (16-63); AST 16 U/L (15-37); Albumin 3.3 g/dL (3.4-5.0); Alkaline Phosphatase 149 U/L (46-116); Anion Gap 5.6 mmol/L (3-11); BUN 16 mg/dL (7-18); Bilirubin, Total 0.6 mg/dL (0.2-1.0); CO2 27.4 mmol/L (21.0-32.0); Chloride 106 mmol/L (98-107); Glucose 122 mg/dL (74-106); Potassium 3.9 mmol/L (3.5-5.1); Sodium 139 mmol/L (136-145); Total Protein 7.2 g/dL (6.4-8.2)
[2021-11-08 16:36] LABS: PSA, Ultrasensitive <0.01 ng/mL (<= 6.5)
[2021-11-10 17:06] LABS: Testosterone, Total <7.0 ng/dL (240-950)
== END 2021-11-07 01:33 | disposition home or self-care (01) ==
LOC: LBO 01:32
PROVIDERS: Nurse Practitioner Family; PCP Nurse Practitioner; Visit Provider Radiology Radiation Oncology
DX: C61 Malignant neoplasm of prostate (principal)
CPT/HCPCS: 36415; 80053; 84153; 84403; 85025

== ENCOUNTER → 2021-11-14 08:19 | Outpatient (BNVA) | payer MEDICARE, SELFPAY | PROVIDERS: PCP Nurse Practitioner; Referring Provider Nurse Practitioner; Visit Provider Nurse Practitioner Gerontology | DX: C61 Malignant neoplasm of prostate (principal); N40.0 Benign prostatic hyperplasia without lower urinary tract symptoms; R35.0 Frequency of micturition; R35.1 Nocturia | CPT/HCPCS: 99214 ==

== ENCOUNTER 2021-11-25 14:13 | Emergency (ER) | payer MEDICARE, SELFPAY ==
--- NOTE | 2021-11-25 14:15 | RT.EKG_ITS ---
APPROVED REPORT Exam: Resting ECG Reason for Exam: DIZZINESS Patient Location: E HR:74 bpm ECG Measurements Heart Rate 74 AXIS AZ 161 P 39 QRSd 81 QRS 7 QT 391 T 31 QTc 433 Conclusion Sinus rhythm...normal P axis, V-rate 60- 99
--- NOTE | 2021-11-25 14:15 | DI.CT_ITS ---
Exam(s) CT HEAD FACIAL WO EXAM: CT HEAD FACIAL WO CLINICAL HISTORY: Fall 48 hours ago, Facial Trauma, Vomiting. TECHNIQUE: Imaging Protocol: Axial computed tomography images with coronal and sagittal reformatted images were created and reviewed COMPARISON: No exams were available for comparison FINDINGS: CT Head: Ventricles and Extra axial spaces: Normal in size and morphology for the patient's age. Hemorrhage: None. Cerebral parenchyma: No acute territorial infarct. Midline shift: None. Brainstem/Cerebellum: Normal. Calvarium: Normal. Visualized Paranasal sinuses/Mastoids: There is a small fluid level in the right maxillary sinus. Th ere is opacification of a few right ethmoid air cells. The remaining visualized paranasal sinuses an d mastoid air cells are clear. Soft Tissues: Unremarkable. CT Face: Facial Bones: No definite fracture is noted in the facial bones. Sinuses and Mastoids: There is a small fluid level in the right maxillary sinus. There is opacifica tion of a few ethmoid air cells. Globes, extraocular muscles, optic nerves and retrobulbar fat: Normal. Upper aerodigestive tract: Normal. Mandible and bilateral temporomandibular joints: Normal. Soft tissues: Normal. IMPRESSION: 1. No acute intracranial process. 2. No acute facial fracture. 3. Results of this exam have been verbally communicated with provider. RADIATION DOSE DELIVERED: 1,353.31mGy.cm Total DLP DATA REPOSITORY: All CT scans at this facility are submitted to the National Radiology Data Registry (NRDR) Dose Index Registry (DIR) with the [employer] (A[employer]). RADIATION OPTIMIZATION: All CT scans at this facility use at least one of these dose optimization te chniques: automated exposure control; mA and/or kV adjustment per patient size (includes targeted exa ms where dose is matched to clinical indication); or iterative reconstruction.
[2021-11-25 14:19] VITALS: BP 134/80; PULSE 85; RESP 18; TEMP 36.5; O2SAT 98
--- NOTE | 2021-11-25 14:29 | W.ED.GENAD ---
Discharge Plan Disposition Patient Disposition: HOME Condition: Stable Discharge Details Clinical Impression: Closed head injury with concussion Primary Care Provider: Demi Tijerina ED Provider: Mercy Garnett Home Meds and New Rx's Prescriptions: No Action atorvastatin 40 mg tablet 40 mg PO DAILY 0RF tamsulosin [Flomax] 0.4 mg capsule 0.8 mg PO DAILY Qty: 180 3RF Rx Instructions: Take 2 caps daily Discharge Instructions Instructions: Concussion (ED), Head Injury (ED) Additional Instructions: At this time the head CT shows no intracranial bleeding or broken bones. I do suspect that you have a concussion which the reasoning for the vomiting and dizziness. You may take meclizine or similar which she can [id number] for the dizziness. Take the Zofran tablet as directed up to 3 times daily before eating or drinking anything or as needed for nausea. Return to the ER for any worsening headache, blurry vision, increased vomiting, confusion, weakness or any concerns. Follow up with primary care provider in 3-5 days. Return to ED sooner if any worsening or concerns. Increase oral fluids. Please take Tylenol or Ibuprofen with food every 4-6 hours as needed for pain and swelling. Please stay away from aspirin for the next 5 to 7 days. Medical Decision Making 71-year-old male presents to the ER with chief complaint of head injury. Patient reports on November 23 he tripped and fell face forward hitting his face while working on the yard. He reports he had a bloody nose, has an abrasion to his left upper lip, and ecchymosis around his left eye. He states that he hit his head very hard and got a wash of his face and he needs to do the yard work. He reports starting to feel dizzy today, vomiting started upon arrival to the department. He denies any blurry vision or double vision denies any neck or back pain. He takes baby aspirin daily no other blood thinners. He denies any chest pain or shortness of breath or any other associated symptoms. CBC, CMP, serial troponins, EKG ordered a urinalysis. CT head and facial rule out fracture versus intracranial hemorrhage. Patient was given Zofran 4 mg IV by technical staff assistant upon arrival department. , CBC, CMP, initial troponin within normal limits. EKG shows normal sinus rhythm. CT Head: Ventricles and Extra axial spaces: Normal in size and morphology for the patient's age. Hemorrhage: None. Cerebral parenchyma: No acute territorial infarct. Midline shift: None. Brainstem/Cerebellum: Normal. Calvarium: Normal. Visualized Paranasal sinuses/Mastoids: There is a small fluid level in the right maxillary sinus. There is opacification of a few right ethmoid air cells. The remaining visualized paranasal sinuses and mastoid air cells are clear. Soft Tissues: Unremarkable. CT Face: Facial Bones: No definite fracture is noted in the facial bones. Sinuses and Mastoids: There is a small fluid level in the right maxillary sinus. There is opacification of a few ethmoid air cells. Globes, extraocular muscles, optic nerves and retrobulbar fat: Normal. Upper aerodigestive tract: Normal. Mandible and bilateral temporomandibular joints: Normal. Soft tissues: Normal. IMPRESSION: 1. No acute intracranial process. 2. No acute facial fracture. 3. Results of this exam have been verbally communicated with provider. Discussed CT results and lab results with patient who verbalized understanding. He reports feeling much better after the Zofran denies any more nausea he does continue to be alert and oriented and neurologically stable, he denies headache. Plan is to discharge patient home. HPI General Mode of arrival: ambulatory. Date/Time Provider Initiated Documentation: 11/25/21 14:13. Limitations to Documentation: no limitations. Information obtained by: patient, RN notes reviewed and old records reviewed. HPI Narrative: 71-year-old male presents to the ER with chief complaint of head injury. Patient reports on November 23 he tripped and fell face forward hitting his face while working on the yard. He reports he had a bloody nose, has an abrasion to his left upper lip, and ecchymosis around his left eye. He states that he hit his head very hard and got a wash of his face and he needs to do the yard work. He reports starting to feel dizzy today, vomiting started upon arrival to the department. He denies any blurry vision or double vision denies any neck or back pain. He takes baby aspirin daily no other blood thinners. He denies any chest pain or shortness of breath or any other associated symptoms. He is alert and oriented x4 upon arrival. No focal neuro deficits noted. Patient has a past medical history of prostate cancer, BPH with urinary retention. Related Data Home Medications Medication Instructions Recorded Confirmed atorvastatin 40 mg tablet 40 mg PO DAILY 11/11/20 tamsulosin 0.4 mg capsule (Flomax) 0.8 mg PO DAILY #180 cap 11/14/21 11/14/21 Previous Rx's Medication Instructions Recorded tamsulosin 0.4 mg capsule (Flomax) 0.8 mg PO DAILY #180 cap 11/14/21 Allergies Allergy/AdvReac Type Severity Reaction Status Date / Time No Known Allergies Allergy Verified 11/08/19 15:36 General Stated Complaint: HeadInjury JODIE: 3 Review of Systems All systems reviewed & are unremarkable except as noted in HPI and below Constitutional Constitutional: Reports as per HPI and Denies headache(s) Eyes Eyes: Denies loss of vision ENT Ears, Nose, Mouth, and Throat: Reports dizziness, Denies headache(s), Denies neck pain, Reports nose pain and Reports disequilibrium Cardiovascular Cardiovascular: Denies chest pain and Denies dyspnea Respiratory Respiratory: Denies dyspnea Musculoskeletal Musculoskeletal: Denies neck pain Neurologic Neurologic: Reports as per HPI, Reports dizziness, Denies headache(s), Denies localized weakness, Denies loss of vision and Reports disequilibrium PFS All Active Problems (Updated 11/25/21 @ 16:41 by Mercy Garnett) Closed head injury with concussion (Acute) Acute urinary retention (Acute) Prostate cancer (Chronic) BPH (benign prostatic hyperplasia) (Chronic) prior thao placement for urinary retention Medical History (Updated 11/25/21 @ 16:41 by Mercy Garnett) Complicated UTI (urinary tract infection) Elevated PSA History of lower leg fracture right History of shoulder fracture left Prostate nodule Family History Father Heart disease age 57 from [place] Mother No problems noted. Brother , unknown cause of No problems noted. Sister No problems noted. Sister No problems noted. Social History Smoking/Tobacco Use Status: Never Smoking risk assessment performed?: Yes Alcohol Intake: current Alcohol Intake frequency: holidays/special occasions only Drug use: Never Substance use type: does not use Do you feel safe at home: Yes Do you feel safe in your relationship?: Yes Exam Narrative Exam Narrative: General: Well Developed, Awake and Alert, conversant. Appears slightly diaphoretic, vomiting upon arrival. Skin: Warm and Dry HEENT: Head: No palpable deformities, Normocephalic Eyes: Pupils PERRLA, EOM's intact. No periorbital eccymosis or step off Ears: Canal patent. Tympanic membranes are clear . No monroy's sign, no hemptympanum. Nose/Face: Swollen bridge of nose, ecchymosis noted around the left periorbital area, EOMs are intact, healing superficial abrasion noted to left upper lip. Teeth are intact. Mouth/Throat: No intraoral trauma. Teeth and mandible are intact. Neck: No midline tenderness, no step off, no deformity to palpation of C-spine. Trachea midline. Chest: No surface trauma. Nontender without crepitus or deformity. Lungs clear to ausculatation bilaterally. Heart: RRR, no rubs, murmurs or gallop. Abdomen: No abrasions, ecchymosis, or surface trauma. Nondistended. Nontender to palpation no guarding, rebound, or rigidity. Pelvis: Nontender to palpation and stable to compression. Femoral pulses strong and equal Extremities: no surface trauma. Sensation intact. Peripheral pulses intact and equal. Neuro: ANO x4, GCS 15, cranial nerves II through XII intact. Motor and sensory exam nonfocal. Reflexes are symmetric. Course Vital Signs Vital signs: Vital Signs Temperature 36.5 C 11/25/21 14:19 Pulse 85 11/25/21 14:19 Respiratory Rate 18 11/25/21 14:19 Blood Pressure 134/80 11/25/21 14:19 Pulse Oximetry 98 11/25/21 14:19 Temperature 36.5 C 11/25/21 14:19 Temperature Source Tympanic 11/25/21 14:19 Pulse 85 11/25/21 14:19 Respiratory Rate 18 11/25/21 14:19 Respiratory Effort 11/25/21 14:24 Respiratory Depth Normal 11/25/21 14:24 Respiratory Pattern Normal 11/25/21 14:24 Blood Pressure 134/80 11/25/21 14:19 Blood Pressure Position Supine 11/25/21 14:19 Pulse Oximetry 98 11/25/21 14:19 Oxygen Delivery Method Room Air 11/25/21 14:19 Oxygen Flow Rate 0 11/25/21 14:19 Pain Level 0 11/25/21 14:19
[2021-11-25 14:42] LABS: Abs Immature Grans 0.03 10^3/uL (0.0-0.06); Absolute Basophil Count 0.07 10^3/uL (0.0-0.2); Absolute Eosinophil Count 0.28 10^3/uL (0.0-0.7); Absolute Lymphocyte Count 2.03 10^3/uL (1.2-3.4); Absolute Monocyte Count 1.39 10^3/uL (0.1-0.8); Absolute Neutrophil Count 6.36 10^3/uL (1.2-6.7); Basophils % 0.7; Eosinophils % 2.8; HCT 45.2 % (40.0-50.0); HGB 14.5 g/dL (13.5-17.5); Immature Grans % 0.3; MCH 26.6 pg (27.0-33.0); MCHC 32.1 % (32.0-36.0); MCV 82.8 fL (80-95); MPV 9.3 fL (8.0-11.0); Monocytes % 13.7; Neutrophils % 62.5; Nucleated RBC 0 %; Platelet Count 228 10^3/uL (130-400); RBC 5.46 10^6/uL (4.36-5.78); RDW 12.5 % (11.8-14.1); RDW-SD 37.5 fL; WBC 10.16 10^3/uL (4.4-10.8)
[2021-11-25] MEDS: Normal Saline 1,000 ML 1000 ML IV (14:50)
[2021-11-25] MEDS: Ondansetron 4 MG/2 ML VIAL (14:50)
[2021-11-25 15:00] LABS: ALT 13 U/L (16-63); AST 14 U/L (15-37); Albumin 3.8 g/dL (3.4-5.0); Alkaline Phosphatase 170 U/L (46-116); Anion Gap 8.4 mmol/L (3-11); BUN 17 mg/dL (7-18); Bilirubin, Total 0.4 mg/dL (0.2-1.0); CO2 26.6 mmol/L (21.0-32.0); Chloride 108 mmol/L (98-107); Glucose 126 mg/dL (74-106); Potassium 3.6 mmol/L (3.5-5.1); Sodium 143 mmol/L (136-145); Total Protein 7.9 g/dL (6.4-8.2); Troponin I < 50 ng/L (<or=60)
[2021-11-25 15:29] LABS: Prothrombin Time 10.1 sec (9.3-11.0)
== END 2021-11-25 16:49 | disposition home or self-care (01) ==
PROVIDERS: Emergency Provider Registered Nurse Emergency; PCP Nurse Practitioner
DX: S09.8XXA Other specified injuries of head, initial encounter (principal); S06.0X0A Concussion without loss of consciousness, initial encounter; W01.0XXA Fall on same level from slipping, tripping and stumbling without subsequent striking against object, initial encounter; R42 Dizziness and giddiness
CPT/HCPCS: 80053; 93005; 96361; 96374; 99284; 70450; 70486; 81003; 84484; 85025; 85610; 93010; J2405

== ENCOUNTER 2022-01-24 17:27 | Outpatient (REF) | payer MEDICARE, SELFPAY ==
[2022-01-24 16:26] LABS: Calculated LDL 88 mg/dL (<100); Cholesterol 147 mg/dL (<200); Glucose 108 mg/dL (74-106); HDL Cholesterol 42 mg/dL (40-60); Triglyceride 86 mg/dL (<150)
== END 2022-01-24 17:28 | disposition home or self-care (01) ==
LOC: NCHCN 17:27
PROVIDERS: PCP Nurse Practitioner; Visit Provider Nurse Practitioner Family
DX: Z00.00 Encounter for general adult medical examination without abnormal findings (principal)
CPT/HCPCS: 80061; 82947

== ENCOUNTER 2022-02-06 03:33 | Outpatient (CLI) | payer MEDICARE, SELFPAY ==
[2022-02-06 10:31] LABS: Abs Immature Grans 0.02 10^3/uL (0.0-0.06); Absolute Basophil Count 0.06 10^3/uL (0.0-0.2); Absolute Eosinophil Count 0.29 10^3/uL (0.0-0.7); Absolute Lymphocyte Count 1.62 10^3/uL (1.2-3.4); Absolute Monocyte Count 1.09 10^3/uL (0.1-0.8); Absolute Neutrophil Count 5.31 10^3/uL (1.2-6.7); Basophils % 0.7; Eosinophils % 3.5; HGB 14.2 g/dL (13.5-17.5); Immature Grans % 0.2; Lymphocytes % 19.3; MCH 26.9 pg (27.0-33.0); MCHC 32.3 % (32.0-36.0); MCV 83 fL (80-95); MPV 8.7 fL (8.0-11.0); Neutrophils % 63.3; Platelet Count 228 10^3/uL (130-400); RBC 5.28 10^6/uL (4.36-5.78); RDW 12.4 % (11.8-14.1); RDW-SD 37.2 fL; WBC 8.39 10^3/uL (4.4-10.8)
[2022-02-06 10:57] LABS: ALT 26 U/L (16-63); AST 16 U/L (15-37); Albumin 3.5 g/dL (3.4-5.0); Alkaline Phosphatase 149 U/L (46-116); Anion Gap 7.7 mmol/L (3-11); BUN 13 mg/dL (7-18); Bilirubin, Total 0.4 mg/dL (0.2-1.0); CO2 26.3 mmol/L (21.0-32.0); CREATININE 0.9 mg/dL (0.70-1.30); Calcium 8.4 mg/dL (8.5-10.1); Chloride 108 mmol/L (98-107); Glucose 116 mg/dL (74-106); Potassium 3.9 mmol/L (3.5-5.1); Sodium 142 mmol/L (136-145); Total Protein 7.2 g/dL (6.4-8.2)
[2022-02-07 18:08] LABS: PSA, Ultrasensitive <0.01 ng/mL (<= 6.5)
== END 2022-02-06 03:34 | disposition home or self-care (01) ==
LOC: LBO 03:33
PROVIDERS: PCP Nurse Practitioner; Visit Provider Nurse Practitioner Family
DX: C61 Malignant neoplasm of prostate (principal)
CPT/HCPCS: 36415; 80053; 84153; 84403; 85025

== ENCOUNTER 2022-05-12 01:13 | Outpatient (CLI) | payer MEDICARE, SELFPAY ==
--- OUTSIDE RECORDS SUMMARY | 2022-05-12 01:18 | XMS_ITS | Encounter Summary ---
:1950 Author Organization [facility] [place] [address] Care Team Providers Name Role Phone Ursula Jacob Primary Care Provider Encounter Details Date Type Department Care Team Description 03/24/2021 Telephone Vascular Surgery at [facility] [place] [place] [address] Social History Tobacco Use Types Packs/Day Years Used Date Never Smoker Smokeless Tobacco: Never Used Alcohol Use Standard Drinks/Week Comments Yes 0 (1 standard drink = 0.6 oz pure alcoho l) occasional beer Alcohol Habits Answer Date Recorded How often do you have a drink containing alcohol? Monthly or less 08/04/2019 How many drinks containing alcohol do you have on a 1 or 2 08/04/2019 typical day when you are drinking? How often do you have six or more drinks on one Never 08/04/2019 occasion? Comment: occasional beer 08/04/2019 Sex Assigned at Date Recorded Not on file documented as of this encounter Miscellaneous Notes Telephone Encounter - Beverly Woodard - 03/24/2021 8:41 AM EDT I spoke with Mr. Jean Baptiste - we have scheduled him for his IR procedure with Dr. Mahoney to be on 04/26/21. 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 Letter sent. documented in this encounter Plan of Treatment Upcoming Encounters Date Type Specialty Care Team Description 05/18/2022 Office Visit Radiation Oncology Grace Raymond, PHARMACY SCHEDULER [facility] RADIATION ONCDEBBIE [place], [place] [address] (Wo rk) 05/18/2022 Infusion Hematology and Oncology documented as of this encounter Visit Diagnoses Not on filedocumented in this encounter Care Teams Vat Packer Relationship Specialty Start Date End Date Ursula Jacob PCP - General Family Medicine 03/16/21 [address] [place] [address] documented as of this encounter
--- OUTSIDE RECORDS SUMMARY | 2022-05-12 01:18 | XMS_ITS | Encounter Summary ---
:1950 Author Organization [facility] [place] [address] Care Team Providers Name Role Phone Ursula Jacob Primary Care Provider Encounter Details Date Type Department Care Team Description 05/19/2021 Office Visit Radiation Oncology at [facility] lign[facility] neoplasm of [address] [address] RADIATION ONCOLOGY [phone] [place], [place] [address] Social History Tobacco Use Types Packs/Day Years [...] on file documented as of this encounter Last Filed Vital Signs Vital Sign Reading Time Taken Comments Blood Pressure 116/63 05/19/2021 9:32 AM EDT Pulse 74 05/19/2021 9:32 AM EDT Temperature 36.6 ??C (97.9 ??F) 05/19/2021 9:32 AM EDT Respiratory Rate 18 05/19/2021 9:32 AM EDT Oxygen Saturation 97% 05/19/2021 9:32 AM EDT Inhaled Oxygen Concentration - - Weight 81.6 kg (179 lb 12.8 oz) 05/19/2021 9:32 AM EDT Height 172.3 cm (5' 7.84) 05/19/2021 9:32 AM EDT Body Mass Index 27.47 05/19/2021 9:32 AM EDT documented in this encounter Progress Notes Mandi Grace Ashley, CATERING TRUCK DRIVER - 05/19/2021 9:30 AM EDTSummary: 71-year-old male diagnosed with high risk prostate cancer in 2019. Status post radiation Images from the original note were not included. [facility] [place] [address] Phone: RADIATION ONCOLOGY FOLLOW UP NOTE Date of visit: 05/18/2021 Patient Rey Jean Baptiste 1950 PCP: Ursula Jacob Urologist:Jean-Claude Woodall MD Radiation oncologist: Dr. Haja Marshall Chief Complaint: follow up/labs/leuprolide for prostate cancer Time since completed RT: Completion 01/05/20 On flow max .8mg ADT: Lupron on tx paln q 3mos due today Current treatment:Surveillance, labs HPI: Rey Jean Baptiste??is a 69 y.o.??male?? diagnosed with a high-risk prostate cancer. ?? Presenting Symptoms / Duration:?? LUTS, elevated PSA and left sided prostate nodule ?? Prior consultations / recommendations: Dr Woodall - 07/25/19:? PSA History:?? 06/2018 - 10.7 06/2019 - 13.5 ?? Pathology Results / Location:?? 12 core TRUS biopsy (Dr Woodall, 07/04/19) Gl 4+5 x 5 (bilat) Gl 4+4 x 3 (bilat) Gl 4+3 x 1 (left) Gl 3+3 x 1 (left) ?? Pertinent Imaging Studies:?? TRUS (07/04/19) - asymmetric gland (R>L); 54 cc Bone scan (07/25/19) - no bone mets CT A/P (07/25/19) - thickened bladder wall, no enlarged lymph nodes ?? 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 atorvastatin (Lipitor) 40 mg Tablet Take 1 tablet by mouth every evening. ibuprofen (Advil;Motrin) 200 mg Tablet Take 600 mg by mouth every 6 hours as needed. For dysuria andurinary frequency tamsulosin (FLOMAX) 0.4 mg Capsule 0.8 mg nightly. Review of Symptoms: I reviewed the IPSS/KELL/Epic-Cp survey results from today not done Patient concerns for today's visit: states no concerns General:Feels he is doing Well Fatigue:mild to moderate, drive, motivation down somewhat. Weight/appetite/diet increased 15lb Respiratory:no congestion, cough, wheezing GI:no blood in stool, no irregularity :no hematuria , no urinary sx Endocrine:flushing at noc wakes him up , tolerable for now, does not want venlafaxine. Sexual health:does not have sex and okay with that. Muscle skeletal:noted muscle weakness Neuro:nothing focal Mood:good Sleep: noc sweats q noc Function:feels pretty good and quite functional Exercise:with work Smoking:never Alcohol:no, rare Support/ social relationships: and 2 daughters nearby Advanced directives not discussed at this time Financial/transportation concerns:no concerns at this time Performance Status: KPS Score ECOG Grade Definition x 90-100 0 Fully active, able to carry on all pre-disease performance without restriction 70-80 1 Restricted in physically strenuous activity but ambulatory and able to carry out work of a light or sedentary nature, e.g., light house work, office work 50-60 2 Ambulatory and capable of all selfcare but unable to carry out any work activities; up and about more than 50% of waking hours 30-40 3 Capable of only limited selfcare; confined to bed or chair more than 50% of waking hours 10-20 4 Completely disabled; cannot carry on any selfcare; totally confined to bed or chair Physical Examination: There is no height or weight on file to calculate BMI. There were no vitals taken for this visit. Constitutional: seen in clinic no distress HENT: normocephalic, anicteric, neck supple, no adenopathy Cardiovascular: Rate and Rhythm: Normal rate and regular rhythm. Heart sounds: Normal heart sounds. No murmur Pulmonary: Effort: Pulmonary effort is normal. Breath sounds: Normal breath sounds. No wheezing or rales. Abdomen: Soft, flat, no HSM, no masses, non-tender, active bowel sounds Genitourinary: Rectum: deferred No inguinal adenopathy Musculoskeletal: Normal range of motion. General: No swelling or deformity. No spinal percussion tenderness No CVA tenderness Comments: Ambulates without assistance Skin: General: Skin is warm and dry. Neurological: General: No focal deficit present. Mental Status: alert and oriented to person, place, and time. Gait: Gait normal. Psychiatric: Mood and Affect: Mood normal. Behavior: Behavior normal. Thought Content: Thought content normal. Judgment: Judgment normal. New Labs Reviewed this visit: Date PSA Test Notes 05/09/21 0.01 7.0 02/10/2021 0.01 7.9 11/08/2019 0.01 9.3 08/18/2020 0.01 8.8 05/18/2020 0.01 7.0 01/12/2020 0.02 7.9 06/2019 13.5 06/2018 10.7 ?? Assessment: 71 y.o. presenting for follow up/ lab/leuprolide for prostate cancer. PSA 0.01, no change in sx profile, using flow max .8mg up 3 x at noc but as much because of noc flushing as to urinate. No bone pain, no urinary sx, no bleeding per rectum or hematuria. Reviwed sx of concern as above. RTC 3 months for next labs and lupron. Medical Decision Making/Recommendations/Plan: # prostate cancer: reviewed PSA results XXX . No concerning reported symptoms or physical examination findings today # effects of EBRT: Acute: 1. LUTS (lower urinary tract symptoms) 2. Bowel dysfunction 3. Sexual health/Erectile Dysfunction 4. Fatigue 5. Mood changes Late: We reviewed potential late effects of radiation that require medical evaluation including : 1. Changes in urinary flow/difficulty passing urine (scarring from radiation) 2. Blood in urine (may be infection, inflammation bladder wall (cystitis), formation of telangiectasia (small, thin blood vessels that are dilated or broken, near the surface of the bladder and may bleed) or bladder/genitourinary cancer 3. Blood in bowel movements (stools)- maybe from hemorrhoids, telangiectasia from radiation, colorectal cancer Symptoms that you should bring to the attention of your provider: Difficulty or changes in your urine flow Blood in your urine or stool # ADT: Labs reviewed:yes Symptoms:wt gain, fatigue mild, muscle weakness a bit. Willing to proceed with next dose today? yes Order: Lupron Next dose due: today # survivorship/lifestyle/wellness: Body weight/nutrition: increased wt 15 lbs since Lupron. Exercise:stays busy with work Bone health: Smoking:never Alcohol: rare Annual exam with PCP: [facility] Up to date on vaccinations:Covid vax at [place] maybe 4 months ago. Colorectal screening:does not want Lung cancer screening:n/a # resources provided:no # referrals done: no # follow up: Per NCCN guidelines, PSA and history/physical every 6-12 months X 5 years, then annually. Annual KARLY (unless PSA undetectable or prostatectomy). PSA may be checked more frequently depending on risk level or other patient specific factors. Next visit:3 os Labs: PSA, testosterone, CBC, CMP Rey Jean Baptiste had the opportunity to ask questions and I answered them to the best of my knowledge. Rey Jean Baptiste agreed to contact radiation oncology in between visits if he has any questions/concerns or new symptoms in regards to the radiation therapy/prostate cancer Grace Raymond MSN, CATERING TRUCK DRIVER, REPAIRER MAINTENANCE BUILDING-[employer] Nurse Practitioner Radiation Oncology documented in this encounter Plan of Treatment Upcoming Encounters Date Type Specialty Care Team Description 05/18/2022 Office Visit Radiation Oncology Grace Raymond APRN [facility] RADIATION ON[facility], [place] [address] (Wo rk) 05/18/2022 Infusion Hematology and Oncology documented as of this encounter Visit Diagnoses Diagnosis Malignant neoplasm of prostate documented in this encounter Care Teams Billboard Poster Relationship Specialty Start Date End Date Ursula Jacob PCP - General Family Medicine 03/16/21 [address] [place] [address] documented as of this encounter
--- OUTSIDE RECORDS SUMMARY | 2022-05-12 01:18 | XMS_ITS | Encounter Summary ---
:1950 Author Organization [place] [address] Care Team Providers Name Role Phone Ursula Jacob Primary Care Provider Encounter Details Date Type Department Care Team Description 06/03/2021 Office Visit Vascular Surgery at Tom Mahoney, Int ermittent claudication; [facility] PAD (peripheral artery disease) [facility] [address] [place] VASCULAR SURGERY [address] [place] [address] [phone] Social History Tobacco Use Types Packs/Day Years [...] Sign Reading Time Taken Comments Blood Pressure 127/59 06/03/2021 12:38 PM EDT Pulse 62 06/03/2021 12:38 PM EDT Temperature - - Respiratory Rate - - Oxygen Saturation - - Inhaled Oxygen Concentration - - Weight - - Height - - Body Mass Index - - documented in this encounter Progress Notes Tom Mahoney MD - 06/03/2021 12:45 PM EDT Vascular Surgery Clinic Visit Mr. Jean Baptiste returns to discuss his lower extremity arterial disease. In review, he initially presented with bilateral lower extremity claudication and left foot numbness especially at night. He underwent left lower extremity angiogram during which we placed a left common iliac artery stent graft for ahigh-grade left common iliac artery stenosis. 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 Diagnostic angiogram of the right leg similarly showed an occluded SFA that was not intervened upon. Since that procedure, he states that his left lower extremity symptoms have much improved. He no longer experiences claudication on that side but has persistent numbness in the ball of the foot. This is intermittent and usually happens more towards the end of the day. He denies any ischemic pain. He has persistent right lower extremity claudication that sets on after several 100 feet and resolves with rest. On exam, he has a healed right groin puncture and palpable bilateral femoral pulses, absent pedal pulses. ABIs are 0.5 bilaterally and unchanged. Toe pressures are approximately 40 bilaterally. Vein map today demonstrates no usable greater saphenous vein bilaterally. I had a long discussion with Mr. Jean Baptiste about his peripheral arterial disease. On the left, he would require a femoral to below-knee popliteal artery bypass and this would be with prosthetic given theabsence of autologous vein. I reviewed the natural history data of such bypasses. I also discussed that on the right side we might try an angiogram with attempt at crossing his SFA. After much deliberation, he has elected to continue with conservative treatment and exercise only. He feels that at this point his symptoms are not severe enough to warrant any further intervention. Hewill pursue daily exercise to the point of calf claudication in hopes to increase his walking distance. He has failed a prior trial of Pletal due to severe diarrhea. He will continue on antiplatelet and statin therapy. Follow-up will be in 6 months with surveillance ABIs. Tom Mahoney MD, MS Section of Vascular Surgery documented in this encounter Plan of Treatment Upcoming Encounters Date Type Specialty Care Team Description 05/18/2022 Office Visit Radiation Oncology [facility] Raymond APRN [facility] RADIATION [place], [place] [address] (Wo rk) 05/18/2022 Infusion Hematology and Oncology documented as of this encounter Visit Diagnoses Diagnosis Intermittent claudication Peripheral vascular disease, unspecified PAD (peripheral artery disease) Peripheral vascular disease, unspecified documented in this encounter Care Teams Lawn Caretaker Relationship Specialty Start Date End Date Ursula Jacob PCP - General Family Medicine 03/16/21 [address] [place] [address] documented as of this encounter
--- OUTSIDE RECORDS SUMMARY | 2022-05-12 01:18 | XMS_ITS | Encounter Summary ---
:1950 Author Organization [facility] [place] [address] Care Team Providers Name Role Phone Ursula Jacob Primary Care Provider Reason for Visit Reason Onset Date Comments Medication Refill 10/06/2021 Encounter Details Date Type Department Care Team Description 10/06/2021 Refill Cardiology at [facility] Luis Barnard MD Medication Refill [facility] [place] [address] CARDIOLOGY DEPT [phone] [place], [place] [address] (Wo rk) Social History Tobacco Use Types Packs/Day Years [...] on file documented as of this encounter Plan of Treatment Upcoming Encounters Date Type Specialty Care Team Description 05/18/2022 Office Visit Radiation Oncology Grace Raymond APRN [facility] ER [address] [place], [place] [address] (Wo rk) 05/18/2022 Infusion Hematology and Oncology documented as of this encounter Visit Diagnoses Diagnosis PAD (peripheral artery disease) - Primar y Peripheral vascular disease, unspecified documented in this encounter Care Teams Cooling Pipe Inspector Relationship Specialty Start Date End Date Ursula Jacob PCP - General Family Medicine 03/16/21 [address] [place] [address] documented as of this encounter
--- OUTSIDE RECORDS SUMMARY | 2022-05-12 01:18 | XMS_ITS | Encounter Summary ---
:1950 Author Organization [facility] Address [address] [place] [address] Care Team Providers Name Role Phone Unknown, Provider Primary Care Provider Encounter Details Date Type Department Care Team Description 07/04/2019 Results Only [facility] Jean-Claude Corado, [address] [place] [address] [place] [address] (Wo rk) Social History Tobacco Use Types Packs/Day Years Used Date Never Assessed Sex Assigned at Date Recorded Not on file documented as of this encounter Plan of Treatment Not on filedocumented as of this encounter Procedures Procedure Name Priority Date/Time Associated Diagnosis Comme nts SURGICAL PATHOLOGY Routine 07/04/2019 22:14 Resul ts for this EDT procedure are i n the results section. documented in this encounter Results SURGICAL PATHOLOGY (07/04/2019 22:14 EDT) Pathology SURGICAL PATHOLOGY REPORT [facility] Report: Reports generated via electronic interface conta in original data; CENTER however they are lacking the format of the original re port. LABORATORY Caution should be taken when reading/interpretin g unformatted reports. SERVICES Name: ? ALONSO BURKS ? Accession #: ? [id number] ? : ? 1950 (Age: 69 ) ??M ? Collect Date: ? 07/04/2019 ? Location: ? [facility] ? Receive Date: ? 019 ? Provider: JEAN-CLAUDE FLOREZ MD Copy to: ANABEL Hadley JOSE STARK ? Final Pathologic Diagnosis: SUMMARY OF CORES A (right base lat) (1) ? 4+4 ? 10% ? / B (right base med) (1) ? 4+5 (20% 5, >75% 4) ? 75% ? / ? PN C (right mid lat) (1) ? 4+4 ? 5% ? / D (right mid med) (1) ? 4+5 (10% 5, >85% 4) ? 65% ? 09/24 ?PN E (right apex lat) (1) ? 4+5 (<5% 5, >75% 4) ? 65% ? / ? PN F (right apex med) (1) ? 4+5 (<5% 5, >95% 4) ? 45% ? / ? PN G (left base lat) (1) ? 3+3 ? 15% ? / H (left base med) (1) ? 4+5 (<5% 5, >95% 4)* ? 30%/15% ? / I (left mid lat) (1) ? no tumor J (left mid med) (1) ? 4+3 (70% 4) ?30% ? / K (left apex lat) (1) ? no tumor L (left apex med) (1) ?4+4 ? 10% ? 09/24 (PN: ? perineural invasion) ( * : ? global Ramon score of discontiguous tumo r foci) ( : ? global percent tumor involvement of discontiguous tumor foci based on end-to-end tumor length) ( : ? global percent tumor involvement of discontiguous tumor foci based on sum of tumor lengths) Grade Group: ?Group 5 New Prostate Cancer Grading System*: This system was developed based on a study of greater than 20,000 prost ate cancer cases treated with radical prostatectomy and greater than 5000 cases treated by radiation thera py. The system was developed to provide a smaller number of grades with t he most significant prognostic differences, with Group 1 hav ing the best prognosis and Group 5 the worst prognosis. The highest grade group is reported for each biopsy series on a patient. Grade Group 1 (Boynton score d6) Grade Group 2 (Boynton score 3+4=7) Grade Group 3 (Ramon score 4+3=7) Grade Group 4 (Ramon score 8) Grade Group 5 (Ramon scores 9-10) * Bertha MCKEON et al: A Philip mporary Prostate Cancer Grading System: A Validated Alternative to the Boynton Score. Eur Uro 2015 69(3):4 28-435 A. prostate, right base lateral, biopsy (1): - Prostatic adenocarcinoma (1 tumor focus). ? - Ramon score: ?4 + 4 = 8 ? - Prognostic Grade Group: ?4 ? - Percent involvement: ? 10% of en tire prostatic tissue ? - ??Histologic grade: ?- ??Primary G leason pattern: ? Grade 4 (poorly formed) ?- ??Secondary Ramon pattern: ? Grade 4 ?- ??Total Gle ason score: ?8 ? - ??Tumor contiguity: ? Contiguous ? - ??Linear millimeter s of prostatic tissue: ? 12.0 mm ? - ??Linear millimeter s of carcinoma: ?1.0 mm B. prostate, right base medial, biopsy (1): - Prostatic adenocarcinoma (1 tumor focus). ? - Boynton score: ?4 + 5 = 9 (20% pattern 5, >75% pattern 4, <5% pattern 3) ? - Prognostic Grade Group: ?5 ? - Percent involvement: ? 75% of en tire prostatic tissue ? - Perineural invasion: ? Present ? - ??Histologic grade: ?4+5+3 ?- ??Primary G leason pattern: ? Grade 4 (poorly formed, fused) ?- ??Secondary Boynton pattern: ? Grade 5 (single cells) ?- ??Minor (<5 %) Boynton pattern: ?Grade 3 ?- ??Total Gle ason score: ?9 (the most and the worst rule for prostate biopsy) ? - ??Tumor contiguity: ? Contiguous ? - ??Linear millimeter s of prostatic tissue: ? 17.2 mm ? - ??Linear millimeter s of carcinoma: ?12.3 mm C. prostate, right mid lateral, biopsy (1): - Prostatic adenocarcinoma (1 tumor focus). ? - Boynton score: ?4 + 4 = 8 ? - Prognostic Grade Group: ?4 ? - Percent involvement: ? 5% of ent brenna prostatic tissue ? - ??Histologic grade: ?- ??Primary G leason pattern: ? Grade 4 ?- ??Secondary Boynton pattern: ? Grade 4 ?- ??Total Gle ason score: ?8 ? - ??Tumor contiguity: ? Contiguous ? - ??Linear millimeter s of prostatic tissue: ? 13.8 mm ? - ??Linear millimeter s of carcinoma: ?0.6 mm D. prostate, right mid medial, biopsy (1): - Prostatic adenocarcinoma (1 tumor focus). ? - Boynton score: ?4 + 5 = 9 (10% pattern 5, >85% pattern 4, <5% pattern 3) ? - Prognostic Grade Group: ?5 ? - Percent involvement: ? 65% of en tire prostatic tissue ? - Perineural invasion: ? Present ? - ??Histologic grade: ?- ??Primary G leason pattern: ? Grade 4 (poorly formed) ?- ??Secondary Ramon pattern: ? Grade 5 (single files/cells) ?- ??Minor (<5 %) Boynton pattern: ?Grade 3 ?- ??Total Gle ason score: ?9 (the most and the worst rule for prostate biopsy) ? - ??Tumor contiguity: ? Contiguous ? - ??Linear millimeter s of prostatic tissue: ? 17.2 mm ? - ??Linear millimeter s of carcinoma: ?10.6 mm E. prostate, right apex lateral, biopsy (1): - Prostatic adenocarcinoma (1 tumor focus). ? - Ramon score: ?4 + 5 = 9 (<5% pattern 5, >75% pattern 4, 20% pattern 3) ? - Prognostic Grade Group: ?5 ? - Percent involvement: ? 65% of en tire prostatic tissue ? - Perineural invasion: ? Present ? - ??Histologic grade: ?4+3+5 ?- ??Primary G leason pattern: ? Grade 4 (poorly formed) ?- ??Secondary Boynton pattern: ? Grade 3 ?- ??Minor (<5 %) Boynton pattern: ?Grade 5 (single files) ?- ??Total Gle ason score: ?9 (the most and the worst rule for prostate biopsy) ? - ??Tumor contiguity: ? Contiguous ? - ??Linear millimeter s of prostatic tissue: ? 16.3 mm ? - ??Linear millimeter s of carcinoma: ?10.3 mm F. prostate, right apex medial, biopsy (1): - Prostatic adenocarcinoma (1 tumor focus). ? - Ramon score: ?4 + 5 = 9 (<5% pattern 5, >95% pattern 4) ? - Prognostic Grade Group: ?5 (total 9-10 ) ? - Percent involvement: ? 45% of en tire prostatic tissue ? - Perineural invasion: ? Present ? - ??Histologic grade: ?4+4+5 ?- ??Primary G leason pattern: ? Grade 4 (poorly formed) ?- ??Secondary Ramon pattern: ? Grade 4 ?- ??Minor (<5 %) Ramon pattern: ?Grade 5 (single files/cells) ?- ??Total Gle ason score: ?9 (the most and the worst rule for prostate biopsy) ? - ??Tumor contiguity: ? Contiguous ? - ??Linear millimeter s of prostatic tissue: ? 18.0 mm ? - ??Linear millimeter s of carcinoma: ?8.2 mm G. prostate, left base lateral, biopsy (1): - Prostatic adenocarcinoma (1 tumor focus). ? - Boynton score: ?3 + 3 = 6 ? - Prognostic Grade Group: ?1 ? - Percent involvement: ? 15% of en tire prostatic tissue ? - ??Histologic grade: ?- ??Primary G leason pattern: ? Grade 3 ?- ??Secondary Boynton pattern: ? Grade 3 ?- ??Total Gle ason score: ?6 ? - ??Tumor contiguity: ? Contiguous ? - ??Linear millimeter s of prostatic tissue: ? 13.8 mm ? - ??Linear millimeter s of carcinoma: ?1.7 mm H. prostate, left base medial, biopsy (1): - Prostatic adenocarcinoma (2 discontiguous tumor foci ). ? - Global Ramon scor e: ? 4 + 5 = 9 (<5% pattern 5, >95% pattern 4) ? - Prognostic Grade Group: ?5 ? - Percent involvement : ? 30% of entire prostatic tissue (based on end-to-end tumor length) ?15% of entire prostatic tissue (based on sum of tumor lenghths) ? - ??Histologic grade: ?4+4+5, 4+4 ?- ??Primary G leason pattern: ? Grade 4 (poorly formed) ?- ??Secondary Ramon pattern: ? Grade 4 ?- ??Minor (<5 %) Boynton pattern: ?Grade 5 (single files/cells) ?- ??Total Gle ason score: ?9 (the most and the worst rule for prostate biopsy) ? - ??Tumor contiguity: ? Discontiguous ?(2.5 mm 4+5 (<5% 5) and <0.1 mm 4+4 tumor foci by 1.9 mm non-tumor prostatic tissue) ? - ??Linear millimeter s of prostatic tissue: ? 17.0 mm ? - ??Linear millimeter s of carcinoma: ?4.5 mm (end-to-end tumor length) ? 2.6 mm (sum of tumor lengths) - Adenosis. I. prostate, left mid lateral, biopsy (1): - Prostatic tissue (13.9 mm) is focal atrophy. J. prostate, left mid medial, biopsy (1): - Prostatic adenocarcinoma (1 tumor focus). ? - Ramon score: ?4 + 3 = 7 (70% pattern 4) ? - Prognostic Grade Group: ?3 ? - Percent involvement: ? 30% of en tire prostatic tissue ? - ??Histologic grade: ?- ??Primary G leason pattern: ? Grade 4 (poorly formed) ?- ??Secondary Ramon pattern: ? Grade 3 ?- ??Total Gle ason score: ?7 ? - ??Tumor contiguity: ? Contiguous ? - ??Linear millimeter s of prostatic tissue: ? 14.1 mm ? - ??Linear millimeter s of carcinoma: ?4.1 mm K. prostate, left apex lateral, biopsy (1): - Prostatic tissue (13.5 mm) is focal atrophy and foca l chronic inflammation with eosinophils. L. prostate, left apex medial, biopsy (1): - Prostatic adenocarcinoma (1 tumor focus). ? - Ramon score: ?4 + 4 = 8 ? - Prognostic Grade Group: ?4 ? - Percent involvement: ? 10% of en tire prostatic tissue ? - ??Histologic grade: ?- ??Primary G leason pattern: ? Grade 4 (poorly formed) ?- ??Secondary Ramon pattern: ? Grade 4 ?- ??Total Gle ason score: ?8 ? - ??Tumor contiguity: ? Contiguous ? - ??Linear millimeter s of prostatic tissue: ? 10.9 mm ? - ??Linear millimeter s of carcinoma: ?1.1 mm Comment: Immunohistochemical study wa s performed on (H: left base medial) to characterize atypical prostatic glands, and the immunoreactivity pr ofile supports the diagnosis. IMMUNOHISTOCHEMISTRY: ANTIBODY(CLONE)(BLOCK):RESULT keratin 34BE12 (K-9) (34BE12, [place]) (H1): ??Negativ e in carcinoma P504S (racemase, AMACR) (SP116, [place]) (H1): ??Posit kwaku in carcinoma NOTE: ??One or more of the reagents used in imm unoperoxidase testing in this case may not have been cleared or approved by the U.S. Food and Drug Administration (FDA). ??The FDA has determined that such clearance or approval is not necessary. ??These tests are used for clinical purposes. ??They should not be regarded as investigational or for research. ??These r eagents' performance characteristics have been de termined by [facility] and/or by the referring labmeggan ruffin. ??The positive and negative controls worked appropriately. If immunopero xidase staining has been performed on alcohol fixed cytology specimens, which has not been fully validated , the assays should be interpreted with caution and correlated with clinical data. ??This laboratory is certified under the Clinical Laboratory Improvement Amendments of 1988 (CLIA-88) as qualified to perform high complexity clinical labor atory testing. Document reviewed and electronically signed by: Christopher Oshea MD Report ??Date: 07/09/2019 18:36 By the signature above, the attending physician certif ies that he/she has personally conducted a gross and/or microscopic examin ation of the described specimens and rendered or confirmed the above diagnosi s. Specimen(s) Received: A. ??Rt base lateral B. ??Rt base medial C. ??Rt mid lateral D. ??Rt mid medial E. ??Rt apex lateral F. ??Rt apex medial G. ??Lt base lateral H. ??Lt base medial I. ??Lt mid lateral J. ??Lt mid medial K. ??Lt apex lateral L. ??Lt apex medial Clinical History: PSA 13.3 with left sided prostate nodule Gross Description: A. ?Received in formalin labelled with proper p atient identification (initials G, M) and right b ase lateral is a single byrd-white tissue core (1.2 cm in length x 0.1 cm in diameter). Submitted intact i n A1. B. ?Received in formalin labelled with proper p atient identification (initials G, M) and right base medial is a single byrd-white tissue core (1.8 cm in length x 0.1 cm in diameter). Submitted intact i n B1. C. ?Received in formalin labelled with proper p atient identification (initials G, ?M) and right mid lateral is a single byrd-white tissue core (1.2 cm in length x 0.1 cm in diameter). Submitted int act in C1. D. ?Received in formalin labelled with proper p atient identification (initials G, M) and right m id medial is a single byrd-white tissue core (2.1 cm in length x 0.1 cm in diameter). Submitted intact in D 1. E. ?Received in formalin labelled with proper p atient identification (initials G, M) and right a pex lateral is a single byrd-white tissue core (1.6 cm in length x 0.1 cm in diameter). Submitted intact i n E1. F. ?Received in formalin labelled with proper p atient identification (initials G, M) and right apex medial is a single byrd-white tissue core (2.2 cm in length x 0.1 cm in diameter). Submitted intact i n F1. G. ?Received in formalin labelled with proper p atient identification (initials G, M) and left base lateral is a single byrd-white tissue core (1.7 cm in length x 0.1 cm in diameter). Submitted intact i n G1. H. ?Received in formalin labelled with proper p atient identification (initials G, M) and left ba se medial is a single byrd-white tissue core (2.3 cm in length x 0.1 cm in diameter). Submitted intact in H 1. I. ?Received in formalin labelled with proper p atient identification (initials G, M) and left mi d lateral is a single byrd-white tissue core (1.1 cm in length x 0.1 cm in diameter). Submitted intact in I 1. J. ?Received in formalin labelled with proper p atient identification (initials G, M) and left mi d medial is a single byrd-white tissue core (2.1 cm in length x 0.1 cm in diameter). Submitted intact in J 1. K. ?Received in formalin labelled with proper p atient identification (initials G, M) and left apex lateral is a single byrd-white tissue core (1.8 cm in length x 0.1 cm in diameter). Submitted intact i n K1. L. ?Received in formalin labelled with proper p atient identification (initials G, M) and left ap ex medial is a single byrd-white tissue core (1.1 cm in length x 0.1 cm in diameter). Submitted intact in L 1. Dr. Sanchez 07/05/2019 9:06 AM End of Report Specimen Performing Organization Address City/State/ZIP Code Phon e Number [facility] [address] [place] [id number] SERVICES documented in this encounter Visit Diagnoses Not on filedocumented in this encounter Care Teams Vice President And Portfolio Manager Relationship Specialty Start Date End Date Unknown, Provider, PCP - General 07/04/19 documented as of this encounter
--- OUTSIDE RECORDS SUMMARY | 2022-05-12 01:18 | XMS_ITS | Encounter Summary ---
:1950 Author Organization [facility] [place] [address] Care Team Providers Name Role Phone Ursula Jacob Primary Care Provider Reason for Visit Reason Comments Injections lupron Treatment/Therapy Plan Authorization (Routine) - Closed Specialty Diagnoses / Procedures Referred By Contact Refer red To Contact Diagnoses Primary malignant neoplasm of prostate with high risk of recurrence due to Dallas score of 8 to 10 and PSA greater than [address] [facility] [address] [facility] [phone] Fax: Referral ID Status Reason Start Date Expiration Date Visits Requ ested Visits Authorized [id number] Closed 11/17/2020 11/17/2021 99 99 Encounter Details Date Type Department Care Team Description 08/23/2021 Infusion Hematology Oncology at [facility] malignant neoplasm [facility] of prostate with high risk [address] [facility] of recurrence due to [place], [place] [phone] score of 8 to 10 and PSA [phone] greater than 20 Social History Tobacco Use Types Packs/Day Years [...] on file documented as of this encounter Progress Notes Jodee Zhao RN - 08/23/2021 4:00 PM EST Infusion Note Diagnosis:Prostate Cancer Treatment: Lupron Injection Lupron 22.5mg injected in left buttocks Patient instructed on side effects of Lupron. Patient states understanding of teaching, Patient aware to call clinic with any questions or concerns. Plan: Return to clinic as scheduled. documented in this encounter Plan of Treatment Upcoming Encounters Date Type Specialty Care Team Description 05/18/2022 Office Visit Radiation Oncology Grace Raymond, [facility] RADIATION [place]BI[place], [place] [address] (Wo rk) 05/18/2022 Infusion Hematology and Oncology documented as of this encounter Visit Diagnoses Diagnosis Primary malignant neoplasm of prostate w ith high risk of recurrence due to Dallas score of 8 to 10 and PSA greater than 20 documented in this encounter Administered Medications Inactive Administered Medications - up to 3 most recent administrations Medication Order MAR Action Action Date Dose Rate Site leuprolide (Lupron Depot) Given 08/23/2021 4:04 PM EST 22.5 mg Left Gluteal injection 22.5 mg 22.5 mg, Intramuscular, ONCE, 1 dose, On Sun08/23/21 at 1545, Routine documented in this encounter Care Teams Learning And Development Analyst Relationship Specialty Start Date End Date Ursula Jacob PCP - General Family Medicine 03/16/21 [address] [place] [address] documented as of this encounter
--- OUTSIDE RECORDS SUMMARY | 2022-05-12 01:18 | XMS_ITS | Encounter Summary ---
:1950 Author Organization [facility] [place] [address] Care Team Providers Name Role Phone Ursula Jacob Primary Care Provider Reason for Referral Diagnostic Test (Routine) - Authorized Specialty Diagnoses / Procedures Referred By Contact Refer red To Contact Diagnoses PAD (peripheral artery disease) Intermittent claudication Tom Mahoney MD [facility] Vascular Lab 3v Procedures ROXANNE, legs, multiple levels [facility] [place] [address] [place] [address] Referral ID Status Reason Start Expiration Visits Visits Date Date Requested Authorized [id number] Authorized Specialty 01/17/2022 01/17/2023 1 1 Service Requested Encounter Details Date Type Department Care Team Description 01/17/2022 Office Visit Vascular Surgery at Tom Mahoney, PAD (peripheral artery disease); [facility] Intermittent claudication [facility] [place], [place] VASCULAR SURGERY [address] [place] [address] [phone] Social History Tobacco Use Types Packs/Day Years [...] Sign Reading Time Taken Comments Blood Pressure 126/63 01/17/2022 2:17 PM EDT Pulse 64 01/17/2022 2:17 PM EDT Temperature - - Respiratory Rate - - Oxygen Saturation - - Inhaled Oxygen Concentration - - Weight 77.1 kg (170 lb) 01/17/2022 2:17 PM EDT reported Height 172.7 cm (5' 8) 01/17/2022 2:17 PM EDT reported Body Mass Index 25.85 01/17/2022 2:17 PM EDT documented in this encounter Progress Notes Tom Mahoney MD - 01/17/2022 2:30 PM EDT Vascular Surgery Clinic Visit ?? Mr. Jean Baptiste returns to discuss his [...] occluded SFA that was not intervened upon. ?? Since that procedure, he states that his left lower extremity symptoms remain much improved. He no longer experiences claudication on that side but has persistent numbness in the forefoot. This is intermittent and usually happens more towards the end of the day. He denies any ischemic pain. He does not experience any significant claudication. ?? On exam, he has a healed right groin puncture and palpable bilateral femoral pulses, absent pedal pulses. ?? ABIs are 0.5 bilaterally and unchanged. ?? Vein map previously demonstrated no usable greater saphenous vein bilaterally. ?? I had a discussion with Mr. Jean Baptiste about his peripheral arterial disease. On the left, he would require a femoral to below-knee popliteal artery bypass and this would be with prosthetic given the absence of autologous vein. I reviewed the natural history data of such bypasses. I also discussed that on the right side we might try an angiogram with attempt at crossing his SFA. ?? Since he feels well, he would like to continue with conservative treatment and exercise only. He feels that at this point his symptoms are not severe enough to warrant any further intervention. He willpursue daily exercise to the point of calf claudication in hopes to increase his walking distance. He has failed a prior trial of Pletal due to severe diarrhea. He will continue on antiplatelet and statin therapy. ?? Follow-up will be in 6 months with surveillance ABIs. ?? Tom Talavera. MD Maru, MS Section of Vascular Surgery documented in this encounter Plan of Treatment Upcoming Encounters Date Type Specialty Care Team Description 05/18/2022 Office Visit Radiation Oncology Grace Raymond, ADMINISTRATIVE PROJECT COORDINATOR [facility] RADIATION ONCDEBBIE [place], [place] [address] (Wo rk) 05/18/2022 Infusion Hematology and Oncology documented as of this encounter Visit Diagnoses Diagnosis PAD (peripheral artery disease) Peripheral vascular disease, unspecified Intermittent claudication Peripheral vascular disease, unspecified documented in this encounter Care Teams Survey Chief Relationship Specialty Start Date End Date Ursula Jacob PCP - General Family Medicine 03/16/21 [address] [place] [address] documented as of this encounter
--- OUTSIDE RECORDS SUMMARY | 2022-05-12 01:18 | XMS_ITS | Clinical Summary ---
:1950 Author Organization [facility] [place] [address] Care Team Providers Name Role Phone Ursula Jacob Primary Care Provider Allergies No known active allergies Medications Medication Sig Dispensed Refills Start Date End Date Status tamsulosin (FLOMAX) 0.8 mg nightly. 11 07/27/2019 Active 0.4 mg Capsule ibuprofen Take 600 mg by 0 Activ e (Advil;Motrin) 200 mg mouth every 6 Tablet hours as needed. For dysuria and urinary frequency atorvastatin (Lipitor) Take 1 tablet by 90 tablet 3 10/06/2021 Active 40 mg mouth every TabletIndications: PAD evening. (peripheral artery disease) Active Problems Problem Noted Date Primary malignant neoplasm of prostate with high risk of recurrence due to 08/04/2019 [place] score of 8 to 10 and PSA greater than 20 Malignant neoplasm of prostate 07/31/2019 Cancer Staging: Clinical: Stage IIIC (cT 2, cN0, cM0, PSA: 13.5, Grade Group: 5) - Signed by Haja Marshall MD on 07/31/2019 Encounters Date Type Specialty Care Team Description 02/14/2022 Infusion Hematology and Malignant talha plasm of Oncology prostate 02/14/2022 Office Visit Radiation Oncology Grace Raymond Malig nant neoplasm of [employer] prostate (Prima ry Dx) from Last 3 Months Family History Medical History Relation Comments Cancer Maternal Grandfather throat Relation Status Comments Maternal Grandfather Social History Tobacco Use Types Packs/Day Years [...] Assigned at Date Recorded Not on file Last Filed Vital Signs Vital Sign Reading Time Taken Comments Blood Pressure 142/73 02/14/2022 11:03 AM EDT Pulse 74 02/14/2022 11:03 AM EDT Temperature 36.6 ??C (97.9 ??F) 02/14/2022 11:03 AM EDT Respiratory Rate 18 02/14/2022 11:03 AM EDT Oxygen Saturation 97% 02/14/2022 11:03 AM EDT Inhaled Oxygen Concentration - - Weight 81.5 kg (179 lb 9.6 oz) 02/14/2022 11:03 AM EDT Height 172.7 cm (5' 7.99) 02/14/2022 11:03 AM EDT Body Mass Index 27.31 02/14/2022 11:03 AM EDT Plan of Treatment Upcoming Encounters Date Type Specialty Care Team Description 05/18/2022 Office Visit Radiation Oncology Grace Raymond, [employer] [facility] RADIATION ONCDEBBIE [place], [place] [address] (Wo rk) 05/18/2022 Infusion Hematology and Oncology Health Maintenance Due Date Last Done Comments Covid-19 Vaccine (#1) 1955 Hepatitis C Screening 1968 Tdap adult 1969 Tetanus vaccine 1969 Colonoscopy 1995 Zoster vaccine (1 of 2) 2000 Advance Directive 2005 Pneumoccocal Vaccine: 65+ (1 - PCV) 2015 Influenza (Flu) vaccine (1 of 1 - Influenza standard 05/25/2022 series) Medical Devices Implanted Type Area Adjunct Professor Of English Device Shelf Model / Identifier Expiration Serial / Lot Date Stent Trachbr [id number] Cvrd 0.035in Gw Ss Icast ([id number]) -04/26/2021 IMPLANTS Left: [employer] - 02/23/2023 [id number] / Implanted: Qty: 1 on 04/26/2021 by Tom Mahoney MD Princess ALY GR [id number] / Description: left common iliac artery Procedures Procedure Name Priority Date/Time Associated Diagnosis Comme nts LAB SCAN 02/13/2022 12:00 AM Results for this EDT procedure are i n the results section . LAB SCAN 02/13/2022 12:00 AM Results for this EDT procedure are i n the results section . LAB SCAN 02/13/2022 12:00 AM Results for this EDT procedure are i n the results section . LAB SCAN 02/13/2022 12:00 AM Results for this EDT procedure are i n the results section . from Last 3 Months Results SCAN DOC: LAB (02/13/2022 12:00 AM EDT)Only the most recent of4 resultswithin the time period is included. Narrative This result has an attachment that is no t available. Unknown MEDIA MGR SCAN EXT ORDR/RSLT from Last 3 Months Insurance Payer Benefit Plan / Subscriber ID Effective Dates Phone Addre ss Type Group MEDICARE MEDICARE PART A [id number] 2019-Presen [phone] [id number] [place] [phone] Advance Directives Latest Code Status on File Code Status Date Activated Date Inactivated Comments Attempt Cardiopulmonary Resuscitation - 04/26/2021 9:51 AM 4:41 AM Inpatient Code Status decision made by: Patient Attempt Cardiopulmonary Resuscitation - Inpatient 04/26/2021 9 :34 AM 04/26/2021 9:51 AM Code Status decision made by: Patient Care Teams Oil Developer Relationship Specialty Start Date End Date Rachel-Ursula Emerson PCP - General Family Medicine 03/16/21 [address] [place], [place] [id number]
--- OUTSIDE RECORDS SUMMARY | 2022-05-12 01:18 | XMS_ITS | Encounter Summary ---
:1950 Author Organization [facility] [place] [address] Care Team Providers Name Role Phone Ursula Jacob Primary Care Provider Encounter Details Date Type Department Care Team Description 08/24/2021 Notes Only Radiation Oncology [place] [facility] Grace Raymond APRN [facility] [place] [address] RADIATION ONCOLOGY [phone] [place], [place] [address] (Wo rk) Social History Tobacco Use Types [...] Office Visit Radiation Oncology Grace Raymond APRN [facility] RADIATION ONCDEBBIE AGUIAR [place], [place] [address] (Wo rk) 05/18/2022 Infusion Hematology and Oncology Scheduled Orders Name Type Priority Associated Diagnoses Order S chedule PSA (Ultrasensitive) Lab Routine Malignant neoplasm o f Expected: 11/24/2021 prostate (Approximate), Expires: 2021 Testosterone, total Lab Routine Malignant neoplasm of Expected: 11/23/2021 prostate (Approximate), Expires: 2021 CBC (with Diff) Lab Routine Malignant neoplasm of Exp ected: 11/23/2021 prostate (Approximate), Expires: 2021 Comprehensive metabolic Lab Routine Malignant neoplas m of Expected: 11/23/2021 panel (non-fasting) prostate (Approxi mate), Expires: 2021 documented as of this encounter Visit Diagnoses Diagnosis Malignant neoplasm of prostate - Primary documented in this encounter Care Teams Leather Production Worker Relationship Specialty Start Date End Date Ursula Jacob PCP - General Family Medicine 03/16/21 [address] [place] [address] documented as of this encounter
--- OUTSIDE RECORDS SUMMARY | 2022-05-12 01:18 | XMS_ITS | Encounter Summary ---
:1950 Author Organization [facility] Address [address] [place] [address] Care Team Providers Name Role Phone Unknown, Provider Primary Care Provider Encounter Details Date Type Department Care Team Description 03/04/2020 Lab Requisition [facility] Outr Resulting Lab, Pathology & Laboratory Provider [facility] [address] [place] [address] Social History Tobacco Use Types Packs/Day Years Used Date Never Assessed Sex Assigned at Date Recorded Not on file documented as of this encounter Plan of Treatment Not on filedocumented as of this encounter Procedures Procedure Name Priority Date/Time Associated Diagnosis Comme nts LYME AB Routine 03/03/2020 9:50 EDT Results for this procedure are i n the results section . documented in this encounter Results LYME AB (03/03/2020 9:50 EDT) Pathologist Sig nature Lyme Ab Negative Negative [facility] Comment: LABORATORY SERVICES New 3rd generation assay in use date 03/03/2020 Specimen Blood - Venous blood (substance) Performing Organization Address City/State/ZIP Code Phon e Number [facility] [address] [place] [address] SERVICES documented in this encounter Visit Diagnoses Not on filedocumented in this encounter Care Teams Manager Of Broadcast Content Relationship Specialty Start Date End Date Unknown, Provider, PCP - General 07/04/19 documented as of this encounter
--- OUTSIDE RECORDS SUMMARY | 2022-05-12 01:18 | XMS_ITS | Encounter Summary ---
:1950 Author Organization [facility] [place] [address] Care Team Providers Name Role Phone Ursula Jacob Primary Care Provider Encounter Details Date Type Department Care Team Description 08/23/2021 Office Visit Radiation Oncology at Grace Raymond Ma lignant neoplasm of [facility] PHD INTERN prostate (Primary Dx) [address] [place] [address] RADIATION ONCOLOGY [phone] [place] [id number] Social History Tobacco Use Types Packs/Day Years [...] Sign Reading Time Taken Comments Blood Pressure 155/72 08/23/2021 3:16 PM EST Pulse 86 08/23/2021 3:16 PM EST Temperature 36.3 ??C (97.3 ??F) 08/23/2021 3:16 PM EST Respiratory Rate 20 08/23/2021 3:16 PM EST Oxygen Saturation 98% 08/23/2021 3:16 PM EST Inhaled Oxygen Concentration - - Weight 79.8 kg (176 lb) 08/23/2021 3:16 PM EST with jaime ts Height 172.3 cm (5' 7.84) 08/23/2021 3:16 PM EST Body Mass Index 26.89 08/23/2021 3:16 PM EST documented in this encounter Progress Notes MandiGrace, PHD INTERN - 08/23/2021 3:15 PM ESTSummary: 71-year-old male diagnosed with high risk prostate cancer in 2019. Plan 36 months ADT. EBRTcompl 01/05/20. Images from the original note were not included. [facility] [place] [address] Phone: RADIATION ONCOLOGY FOLLOW UP NOTE Date of visit: 08/23/2021 Patient Rey Jean Baptiste 1950 PCP: Ursula Jacob Urologist:Jean-Claude Woodall MD Radiation oncologist: Dr. Haja Marshall Chief Complaint: follow up/labs/leuprolide for prostate cancer Time since completed RT: Completion 01/05/20 On flow max .8mg ADT: Lupron on tx paln q 3mos due today Current treatment:Surveillance, labs HPI: Rey Jean Baptiste??is a 71 y.o.??male?? diagnosed with a high-risk prostate cancer. 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 He underwent left lower extremity angiogram during which we placed a left common iliac artery stent graft for a high-grade left common iliac artery stenosis. We also [...] several 100 feet and resolves with rest. He has elected to continue with conservative treatment and exercise only. He feels that at this point his symptoms are not severe enough to warrant any further intervention. He will pursue daily exercise to the point of calf claudication in hopes to increase his walking distance. He has failed a prior trial of Pletal due to severe diarrhea. He will continue on antiplatelet and statin therapy. Medications 06/03/21 5729 Medication Sig Taking? atorvastatin (Lipitor) 40 mg Tablet Take 1 tablet by mouth every evening. ibuprofen (Advil;Motrin) 200 mg Tablet Take 600 mg by mouth every 6 hours as needed. For dysuria andurinary frequency tamsulosin (FLOMAX) 0.4 mg Capsule 0.8 mg nightly. No Known Allergies Past Medical History: Diagnosis Date ??? Lactose intolerance ??? Prostate cancer Past Surgical History: Procedure Laterality Date ??? PROSTATE BIOPSY 07/04/2019 ??? VS ARTERIOGRAM LOWER EXTREMITY VASCULAR SURGERY 04/26/2021 VS Arteriogram Lower Extremity Vascular Surgery 04/26/2021 Tom Mahoney MD [facility] INTERVENTIONL RAD Family History Problem Relation Age of Onset ??? Cancer Maternal Grandfather 80 throat Social History Tobacco Use ??? Smoking status: Never Smoker ??? Smokeless tobacco: Never Used Vaping Use ??? Vaping Use: Never used Substance Use Topics ??? Alcohol use: Yes Comment: occasional beer ??? Drug use: Never Review of Symptoms: I reviewed the IPSS/KELL/Epic-Cp survey results from today 08/23/2021 ??3:14 PM EST - Filed by Patient Reason for visit Follow up on existing problem(s) Incomplete emptying Less than half the time Frequency About half the time Intermittency Less than 1 time in 5 Urgency Not at all Weak Stream About half the time Straining Not at all Nocturia 4 times Quality of life Mostly satisfied Total IPSS Score (range: 0 - 35) 13 (Moderate LUTS) Confidence, level - past 6 months Low Penetration - past 6 months No sexual activity Penetration, maintain - past 6 months Did not attempt intercourse Erection, maintain - past 6 months Did not attempt intercourse Sexual satisfaction - past 6 months Did not attempt intercourse Sexual Health in Men (range: 1 - 21) 2 (Severe ED) Patient concerns for today's visit: states no concerns General:Feels he is doing well Fatigue:mild to moderate, drive, motivation down somewhat. Weight/appetite/diet increased 15lb Respiratory:no congestion, cough, wheezing GI:does have a hemorrhoid which occaiss will bleed. Happens after he has been doing heavy lifting. Lifting finished as he finished building project. Hemorrhoid receded. :no hematuria , no to minimal urinary sx during day except is up 3-4 x noc. For urination, no hematuria Endocrine:flushing at noc wakes him up , tolerable for now, does not want venlafaxine. Sexual health:does not have sex and okay with that. Muscle skeletal:noted moderate muscle weakness Neuro:nothing focal Mood:good , does not have depression at all he states Sleep: noc sweats q noc are the things that waken him and then he gets up to empty bladder. 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 Recently completed a [employer] project. Notices upper body strength less. Exercise:with work Smoking:never Alcohol:no, rare Support/ social [...] confined to bed or chair Physical Examination: Body mass index is 26.89 kg/m??. BP 155/72 (Patient Position: Sitting) Pulse 86 Temp 36.3 ??C (97.3 ??F) (Temporal) Resp 20 Ht 172.3 cm (5' 7.84) Wt 79.8 kg (176 lb) Constitutional: seen in clinic no distress HENT: [...] Reviewed this visit: Date PSA Test Notes 08/16/21 0.01 <7.0 05/09/21 0.01 7.0 02/10/2021 0.01 7.9 11/08/2019 [...] No bone pain, no urinary sx, no hematuria. Does have occaiss hemorrhoid with heavy lifting and it will bleed. With completion of his building project this decreased in swelling and no blood now. We discussed role of colo although he has not wanted to have these in past. Will continue to monitorhemorrhoidal situation. No KARLY today as so recent and not wanting to stim bleeding again. His PSA inundetectable as well. Reviewed sx of concern as above. He is committed to getting through full course of his lupron RTC 3 months for next labs and lupron. Medical Decision Making/Recommendations/Plan: # prostate cancer: reviewed PSA results . No concerning reported symptoms or physical [...] with next dose today? yes Order: Lupron 22.5 mg IM Next dose due: 3 months # survivorship/lifestyle/wellness: Body weight/nutrition: increased wt 15 lbs since Lupron. Exercise:stays busy with work Bone health: No bone Smoking:never Alcohol: rare Annual exam with PCP: [facility] Up to date on vaccinations:Covid vax at [facility] maybe 4 months ago. Booster sched in 2 weeks. Colorectal screening:does not want , Lung cancer screening:n/a # resources provided:no # referrals done: no # follow up: Per NCCN guidelines, PSA and history/physical every 6-12 months X 5 years, then annually. Annual KARLY (unless PSA undetectable or prostatectomy). PSA may be checked more frequently depending on risk level or other patient specific factors. Next visit:3 mos Labs: PSA, testosterone, CBC, CMP Rey Jean Baptiste had the opportunity to ask questions and I answered them to the best of my knowledge. Rey Jean Baptiste agreed to contact radiation oncology in between visits if he has any questions/concerns or new symptoms in regards to the radiation therapy/prostate cancer Grace Raymond MSN, PHD INTERN, REINFORCING BAR SETTER-C Nurse Practitioner Radiation Oncology documented in this encounter Plan of Treatment Upcoming Encounters Date Type Specialty Care Team Description 05/18/2022 Office Visit Radiation Oncology Grace Raymond APRN [facility] RADIATION ONCDEBBIE [place], [place] [address] (Wo rk) 05/18/2022 Infusion Hematology and Oncology Scheduled Orders Name Type Priority Associated Diagnoses Order S chedule PSA (Ultrasensitive) Lab Routine Malignant neoplasm o f Expected: 02/23/2022 prostate (Approximate), Expires: 2021 Testosterone, total Lab Routine Malignant neoplasm of Expected: 02/23/2022 prostate (Approximate), Expires: 2021 Comprehensive metabolic Lab Routine Malignant neoplas m of Expected: 02/21/2022 panel (non-fasting) prostate (Approxi mate), Expires: 2021 CBC (with Diff) Lab Routine Malignant neoplasm of Exp ected: 02/21/2022 prostate (Approximate), Expires: 2021 documented as of this encounter Visit Diagnoses Diagnosis Malignant neoplasm of prostate - Primary documented in this encounter Care Teams Qa Software Test Engineer Relationship Specialty Start Date End Date Ursula Jacob PCP - General Family Medicine 03/16/21 [address] [place] [address] documented as of this encounter
--- OUTSIDE RECORDS SUMMARY | 2022-05-12 01:18 | XMS_ITS | Encounter Summary ---
:1950 Author Organization [place] [address] Care Team Providers Name Role Phone Ursula Jacob Primary Care Provider Reason for Referral Diagnostic Test (Routine) - Authorized Specialty Diagnoses / Procedures Referred By Contact Refer red To Contact Diagnoses Intermittent claudication PAD (peripheral artery disease) Critical lower limb ischemia Tom Mahoney MD [facility] Vascular Lab 3v Procedures ROXANNE, legs, multiple levels [facility] [place] [address] [place] [address] Referral ID Status Reason Start Expiration Visits Visits Date Date Requested Authorized [id number] Authorized Specialty 06/03/2021 06/03/2022 1 1 Service Requested Encounter Details Date Type Department Care Team Description 06/03/2021 Orders Only Vascular Surgery at [facility] Int ermittent claudication; [facility], WELFARE VISITOR PAD (peripheral artery disea se); [facility] Critical lower [place] [address] Social History Tobacco Use Types Packs/Day Years [...] 05/18/2022 Office Visit Radiation Oncology Grace Raymond, PHYSICIAN NEONATOLOGY [facility] RADIATION ONCOLO [place], [place] [address] (Wo rk) 05/18/2022 Infusion Hematology and Oncology documented as of this encounter Results ROXANNE, legs, multiple levels (01/17/2022 1:54 PM EDT) Component Value Ref Test Analysis Performed At [facility] gist Range Method Time Signature VB Text Department: Vascular Surgery Lab [facility] Report Patient: [id number] (ALONSO BURKS) CPT: 21316 Referring Physician: TOM MAHONEY ?? Phone: Indications: s/p L common iliac artery stent graft. Diabetes mellitus: no Findings: Right ?Pressure (mm Hg) ?? ROXANNE ??Waveform ? TBI ?? Brachial Artery ?149 ? Dorsalis Pedis (Ankle) Arter y ?72 ?0.48 ??Monophasic ? Posterior Tibial (Ankle) Art namrata ??86 ?0.58 ??Monophasic ? Great Toe ?51 ?0.34 ?? Left ? Pressure (mm Hg) ?? ROXANNE ??Waveform ? TBI ?? Brachial Artery ?142 ? Dorsalis Pedis (Ankle) Arter y ?74 ?0.50 ??Monophasic ? Posterior Tibial (Ankle) Art namrata ??68 ?0.46 ??Monophasic ? Great Toe ?42 ?0.28 ?? Interpretation: RIGHT: Moderate lower extremity arterial occlusive disease. No significant change compared to previous exam. LEFT: Moderately severe lowe r extremity arterial occlusive disease. Significant improvement in PT compared t o previous exam. No significant change in DP or TIB. Previous ABIs with change from previous value: Date ?RIGHT DP ?? RIGHT PT ?? RT GR TOE ??RT Sec T OE ??0.37 ? 0.48 ? ---- ? ---- ??0.42(+.05) 0.51(+.03) 0.29 ? ---- ??0.48(+.06) 0.47(-.04) 0.28(-.01) ---- Current ? 0.48( .00) 0.58(+.11) 0.34(+.06) ---- Date ?LEFT DP ?LEFT PT ?LT GR TOE LT Sec T OE ??0.42 ? 0.38 ? ---- ? ---- ??0.34(-.08) ---- ? 0.14 ? ---- ??0.47(+.13) 0.00 ? 0.31(+.17) ---- Current ? 0.50(+.03) 0.46(+.46) 0.28(-.03) ---- Electronically Signed by: TOM MAHONEY on 2022-01-17 03:43: 46 PM VB Text End of Report [facility] Report Specimen (Source) Anatomical Collection Method Collection Time Re ceived Time Location / / Volume Laterality 01/17/2022 1:54 PM EDT Tom Mahoney MD VASCULAR ORDERABLES Performing Organization Address City/State/ZIP Code Phon e Number [facility] documented in this encounter Visit Diagnoses Diagnosis Intermittent claudication Peripheral vascular disease, unspecified PAD (peripheral artery disease) Peripheral vascular disease, unspecified Critical lower limb ischemia Unspecified circulatory system disorder documented in this encounter Care Teams Supervisor Cutting And Sewing Room Relationship Specialty Start Date End Date Ursula Jacob PCP - General Family Medicine 03/16/21 [address] [place] [address] documented as of this encounter
--- OUTSIDE RECORDS SUMMARY | 2022-05-12 01:18 | XMS_ITS | Encounter Summary ---
:1950 Author Organization [facility] [place] [address] Care Team Providers Name Role Phone Ursula Jacob Primary Care Provider Reason for Visit Reason Comments Injections Lupron Treatment/Therapy Plan Authorization (Routine) - Closed Specialty Diagnoses / Procedures Referred By Contact Refer red To Contact Diagnoses Primary malignant neoplasm of prostate with high risk of recurrence due to [place] score of 8 to 10 and PSA greater than 20 [address] [facility] [address] [facility] [phone] Fax: Referral ID Status Reason Start Date Expiration Date Visits Requ ested Visits Authorized [id number] Closed 11/17/2020 11/17/2021 99 99 Encounter Details Date Type Department Care Team Description 11/17/2021 Infusion Hematology Oncology at [facility] malignant neoplasm [facility] of prostate with high risk [address] [facility] of recurrence due to [place], [place] [phone] score of 8 to 10 and PSA [phone] greater than 20 Social History Tobacco Use [...] encounter Progress Notes Jodee Zhao RN - 11/17/2021 10:30 AM EST Infusion Note Diagnosis:Prostate Cancer Treatment: Lupron Injection Lupron 22.5mg injected in right buttocks Patient instructed on side effects of Lupron. Patient states understanding of teaching, Patient aware to call clinic with any questions or concerns. Plan: Return to clinic as scheduled. documented in this encounter Plan of Treatment Upcoming Encounters Date Type Specialty Care Team Description 05/18/2022 Office Visit Radiation Oncology Grace Raymond, VP CORPORATE DEVELOPMENT [facility] RADIATION ONCDEBBIE [place], [place] [address] (Wo rk) 05/18/2022 Infusion Hematology and Oncology documented as of this encounter Visit Diagnoses Diagnosis Primary malignant neoplasm of prostate w ith high risk of recurrence due to [place] score of 8 to 10 and PSA greater than 20 documented in this encounter Administered Medications Inactive Administered Medications - up to 3 most recent administrations Medication Order MAR Action Action Date Dose Rate Site leuprolide (Lupron Depot) Given 11/17/2021 11:08 AM 22.5 mg Right Gluteal injection 22.5 mg EST 22.5 mg, Intramuscular, ONCE, 1 dose, On Nidhi 11/17/21 at 1115, Routine documented in this encounter Care Teams Community Engagement Specialist Relationship Specialty Start Date End Date Ursula Jacob PCP - General Family Medicine 03/16/21 [address] [place] [address] documented as of this encounter
--- OUTSIDE RECORDS SUMMARY | 2022-05-12 01:18 | XMS_ITS | Encounter Summary ---
:1950 Author Organization [facility] [address] Care Team Providers Name Role Phone Ursula Jacob Primary Care Provider Reason for Visit Reason Comments Other lupron Treatment/Therapy Plan Authorization (Routine) - Closed Specialty Diagnoses / Procedures Referred By Contact Refer red To Contact Diagnoses Primary malignant neoplasm of prostate with high risk of recurrence due to Ramon score of 8 to 10 and PSA greater than [address] [facility] [address] [facility] [phone] Fax: Referral ID Status Reason Start Date Expiration Date Visits Requ ested Visits Authorized [id number] Closed 11/17/2020 11/17/2021 99 99 Encounter Details Date Type Department Care Team Description 05/19/2021 Infusion Hematology Oncology at [facility] malignant neoplasm [facility] of prostate with high risk [address] [facility] of recurrence due to [place], [place] [phone] score of 8 to 10 and PSA [phone] greater than 20 Social History Tobacco Use [...] documented as of this encounter Progress Notes Josy Cortes RN - 05/19/2021 10:30 AM EDT INFUSION THERAPY ADMINISTRATION NOTES TIME TREATMENT STARTED: 1015 TIME TREATMENT ENDED: 110 DIAGNOSIS: prostate cancer PROTOCOL:na CYCLE #: every 3 months REASON FOR VISIT: lupron SUBJECTIVE Rey Jean Baptiste offers no complaints. OBJECTIVE REACTIONS (DESCRIPTION, TIME, INTERVENTION AND EFFECTIVENESS) none ASSESSMENT Rey Jean Baptiste was awake, alert and he tolerated treatment well. PLAN Return to clinic in 3 months. documented in this encounter Plan of Treatment Upcoming Encounters Date Type Specialty Care Team Description 05/18/2022 Office Visit Radiation Oncology Grace Raymond, PURCHASE ANALYST [facility] RADIATION [place], [place] [address] (Wo rk) 05/18/2022 Infusion Hematology and Oncology documented as of this encounter Visit Diagnoses Diagnosis Primary malignant neoplasm of prostate w ith high risk of recurrence due to Ramon score of 8 to 10 and PSA greater than 20 documented in this encounter Administered Medications Inactive Administered Medications - up to 3 most recent administrations Medication Order MAR Action Action Date Dose Rate Site leuprolide (Lupron Depot) Given 05/19/2021 11:06 AM 22.5 mg Right Gluteal injection 22.5 mg EDT 22.5 mg, Intramuscular, ONCE, 1 dose, On Nidhi 05/19/21 at 1045, Routine documented in this encounter Care Teams Irrigation Flume Layer Relationship Specialty Start Date End Date rUsula Jacob PCP - General Family Medicine 03/16/21 [address] [place] [address] documented as of this encounter
--- OUTSIDE RECORDS SUMMARY | 2022-05-12 01:18 | XMS_ITS | Encounter Summary ---
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 Plan 36 months ADT. EBRTcompl 01/05/20. Images from the original note were not included. [facility] [place] [address] Phone: RADIATION ONCOLOGY FOLLOW UP NOTE Date of visit: 02/13/2022 Patient Rey Jean Baptiste 1950 PCP: Ursula Jacob Urologist:Jean-Claude Woodall MD Radiation oncologist: Dr. Haja Marshall Chief Complaint: follow up/labs/leuprolide for prostate cancer Time since completed RT: Completion 01/05/20 On flow max 0.8mg ADT: Lupron q 3mos due today; plan for 36 months Current treatment:Surveillance, labs HPI: Rey Jean Baptiste??is [...] #7 (22.5) - 05/19/21 Lupron #8 (22.5mg) -08/23/21 Lupron #9 (22.5mg)- 11/17/21 Lupron #10 (22.5 mg)- 02/14/22 Coverage to 30 months at this point. 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 active everyday Pt fell couple months ago and hit head. Went to [facility] and was said to have had a concussion. No LOC. He trip over shovel and fell hitting head. Probably had 3 weeks worth of checks with medicine. Cannot recount the dates. He had headache and fatigue for a couple weeks. No changes in vision. Some postural hypotension for a bit. He also tore lip but that healed. No covid or respiratory illnesses. Still gets up 1-2 x at night to urinate. Still taking two flow max. Gets hot flashes and may wake upand secondarily may try to empty at that time. Flow velocity is less at noc. Goes to bed at 10pm. Noblood in urine or stool. No changes in urination. May 2021 Vascular Note: Mr Perez presented [...] continue on antiplatelet and statin therapy. Medications 01/17/22 1419 Medication Sig Taking? atorvastatin (Lipitor) 40 mg [...] Extremity Vascular Surgery 04/26/2021 Tom Mahoney MD [facility] Family History Problem Relation Age of Onset ??? Cancer Maternal Grandfather 80 throat Social History Tobacco Use ??? Smoking status: Never Smoker ??? Smokeless tobacco: Never Used Vaping Use ??? Vaping Use: Never used Substance Use Topics ??? Alcohol use: Yes Comment: occasional beer ??? Drug use: Never Review of Symptoms: I reviewed the IPSS/KELL/Epic-Cp survey results from today 02/14/2022 10:59 AM EDT - Filed by Patient Urinary function problem Very small problem Urinary control Total control # of pads used per day None Urinary dripping/leakage problem No problem 5. How big a problem, if any, has each of the following been for you? Pain or burning with urination No problem Weak urine stream/incomplete bladder emptying Small problem Need to urinate frequently No problem 6. How big a problem, if any, has each of the following been for you? Rectal pain or urgency of bowel movements No problem Increased frequency of your bowel movements No problem Overall problems with your bowel movements No problem Bloody stools No problem 10. How big a problem, if any, has each of the following been for you? Hot flashes or breast tenderness/enlargement Small problem Feeling depressed No problem Lack of energy Small problem Urinary Incontinence Symptom Score (range: 0 - 12) 0 Urinary Irritation/Obstructive Symptom Score (range: 0 - 12) 2 Bowel Symptom Score (range: 0 - 16) 0 Vitality/Hormonal Symptom Score (range: 0 - 12) 4 Overall Prostate Cancer QOL Score (range: 0 - 60) 6 Q - Prostate Followup Survey Question 02/14/2022 11:07 AM EDT - Filed by Patient Reason for visit Follow up on existing problem(s) Incomplete emptying Not at all Frequency Less than 1 time in 5 Intermittency Less than 1 time in 5 Urgency Not at all Weak Stream Not at all Straining Not at all Nocturia 3 times Quality of life Mostly satisfied Total IPSS Score (range: 0 - 35) 5 ( Mild LUTS) Confidence, level - past 6 months [...] no concerns General:Feels he is doing well and says no changes from last visit. Except did take fall and got concussion as head injured Fatigue:mild to moderate, drive, motivation down somewhat. Weight/appetite/diet increased 15lb (176lb in Nov) now 170lb Respiratory:no congestion, cough, wheezing GI:does have a [...] that. Muscle skeletal:noted moderate muscle weakness Neuro:nothing focal, did have a concussion this winter and checked after fall in [facility] Mood:good , does not have depression. Sleep: noc sweats q noc are the things that waken him and then he gets up to empty bladder. 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 Recently completed a [employer] project. Notices upper body strength less. Exercise:with [...] chair Physical Examination: Body mass index is 27.31 kg/m??. BP 142/73 (Patient Position: Sitting) Pulse 74 Temp 36.6 ??C (97.9 ??F) (Temporal) Resp 18 Ht 172.7 cm (5' 7.99) Wt 81.5 kg (179 lb 9.6 oz) Constitutional: seen in clinic no distress HENT: normocephalic, anicteric, Cardiovascular: Rate and Rhythm: Normal rate and regular rhythm. Pulmonary: Effort: Pulmonary effort is normal. Genitourinary: Rectum: deferred No inguinal adenopathy Musculoskeletal: [...] Reviewed this visit: Date PSA Test Notes 5/11/21 <0.01 11/07/21 0.01 <7.0 08/16/21 0.01 <7.0 05/09/21 0.01 7.0 02/10/2021 0.01 7.9 11/08/2019 0.01 9.3 08/18/2020 0.01 8.8 05/18/2020 0.01 7.0 01/12/2020 0.02 7.9 06/2019 13.5 06/2018 10.7 ?? Assessment: 71 y.o. presenting for follow up/ lab/leuprolide for prostate cancer. PSA 0.01, no change in sx profile, using flow max .8mg up 2 x at noc but as much because [...] continue to monitorhemorrhoidal situation. No KARLY today PSA undetectable. Reviewed sx of concern as above. He is committed to getting through full course of his lupron although frustrated that he thought thelast injection was in April. One more in Nov completes 36 months. RTC 3 months for next labs and [...] Smoking:never Alcohol: rare Annual exam with PCP: [facility] Up to date on vaccinations:Covid vax [...] the radiation therapy/prostate cancer Grace Raymond MSN, DOT NET DEVELOPER, VISUAL BASIC DEVELOPER-C Nurse Practitioner Radiation Oncology documented in this encounter Plan of Treatment Upcoming Encounters Date Type Specialty Care Team Description 05/18/2022 Office Visit Radiation Oncology Grace Raymond APRN [facility] [place], [place] [address] (Wo rk) 05/18/2022 Infusion Hematology and Oncology Scheduled Orders Name Type Priority Associated Diagnoses Order S chedule CBC (with Diff) Lab Routine Malignant neoplasm of Exp ected: 05/16/2022 prostate (Approximate), Expires: 2022 Comprehensive metabolic Lab Routine Malignant neoplas m of Expected: 05/16/2022 panel (non-fasting) prostate (Approxi mate), Expires: 2022 PSA (Ultrasensitive) Lab Routine Malignant neoplasm o f Expected: 05/17/2022 prostate (Approximate), Expires: 2022 Testosterone, total Lab Routine Malignant neoplasm of Expected: 05/16/2022 prostate (Approximate), Expires: 2022 documented as of this encounter Visit Diagnoses Diagnosis Malignant neoplasm of prostate - Primary documented in this encounter Care Teams Superior Court Judge Relationship Specialty Start Date End Date Ursula Jacob PCP - General Family Medicine 03/16/21 [address] [place] [address] documented as of this encounter
--- OUTSIDE RECORDS SUMMARY | 2022-05-12 01:18 | XMS_ITS | Encounter Summary ---
:1950 Author Organization [facility] [place] [address] Care Team Providers Name Role Phone Ursula Jacob Primary Care Provider Reason for Visit Reason Onset Date Comments Medication Refill 04/11/2021 Encounter Details Date Type Department Care Team Description 04/11/2021 Refill [place] [facility] [place] Barnard MD Medication Refill [facility] [place] [address] CARDIOLOGY DEPT [phone] [place], [place] [address] (Wo rk) Social History [...] Office Visit Radiation Oncology Grace Raymond APRN [facility] ER [address] [place], [place] [address] (Wo rk) 05/18/2022 Infusion Hematology and Oncology documented as of this encounter Visit Diagnoses Diagnosis PAD (peripheral artery disease) - Primar y Peripheral vascular disease, unspecified documented in this encounter Care Teams Acidizer Relationship Specialty Start Date End Date Ursula Jacob PCP - General Family Medicine 03/16/21 [address] [place] [address] documented as of this encounter
--- OUTSIDE RECORDS SUMMARY | 2022-05-12 01:18 | XMS_ITS | Encounter Summary ---
:1950 Author Organization [facility] Address [address] [place] [address] Care Team Providers Name Role Phone Unknown, Provider Primary Care Provider Encounter Details Date Type Department Care Team Description 07/08/2019 Hospital Encounter [facility] Unknown, Provider, [facility] 0 [facility] [phone] [place] [address] (Work) [phone] Social History Tobacco Use Types Packs/Day Years Used Date Never Assessed Sex Assigned at Date Recorded Not on file documented as of this encounter Discharge Disposition Disposition Code Departure Means Destination Home or Self Retirement documented in this encounter Plan of Treatment Not on filedocumented as of this encounter Visit Diagnoses Not on filedocumented in this encounter Care Teams Podiatrist Assistant Relationship Specialty Start Date End Date Unknown, Provider, PCP - General 07/04/19 documented as of this encounter
--- OUTSIDE RECORDS SUMMARY | 2022-05-12 01:18 | XMS_ITS | Encounter Summary ---
:1950 Author Organization [place] [address] Care Team Providers Name Role Phone Ursula Jacob Primary Care Provider Reason for Referral Diagnostic Test (Routine) - Closed Specialty Diagnoses / Procedures Referred By Contact Refer red To Contact Diagnoses Critical lower limb ischemia Giselle Houston MD [facility] Vascular Lab 3v Procedures Lower extremity vein map, bilat [facility] [place] [phone] [place] [address] Referral ID Status Reason Start Date Expiration Date Visits V isits Requested Authorized [id number] Closed Specialty 04/26/2021 04/26/2022 1 1 Service Requested iagnostic Test (Routine) - Closed Specialty Diagnoses / Procedures Referred By Contact Refer red To Contact Diagnoses Critical lower limb ischemia Giselle Houston MD [facility] Vascular Lab 3v Procedures ROXANNE, legs, multiple levels [facility] [place] [address] [place] [address] Referral ID Status Reason Start Date Expiration Date Visits V isits Requested Authorized [id number] Closed Specialty 04/26/2021 04/26/2022 1 1 Service Requested iagnostic Test (Routine) - Closed Specialty Diagnoses / Procedures Referred By Contact Refer red To Contact Radiology Diagnoses Critical lower limb ischemia Pre-procedural examination Tom Mahoney MD [facility] Interventionl Rad Procedures VS Arteriogram Lower Extremity Vascular Surgery [facility] [place] [address] [place] [address] Referral ID Status Reason Start Date Expiration Date Visits V isits Requested Authorized [id number] Closed Specialty 03/23/2021 09/22/2022 1 1 Service Requested Reason for Visit Diagnostic Test (Routine) - Closed Specialty Diagnoses / Procedures Referred By Contact Refer red To Contact Radiology Diagnoses Critical lower limb ischemia Pre-procedural examination Tom Mahoney MD [facility] Interventionhaylie Rad Procedures VS Arteriogram Lower Extremity Vascular Surgery [facility] [place] [address] [place] [address] Referral ID Status Reason Start Date Expiration Date Visits V isits Requested Authorized [id number] Closed Specialty 03/23/2021 09/22/2022 1 1 Service Requested Encounter Details Date Type Department Care Team Description 04/26/2021 Hospital Encounter Radiology [place] [facility] [place] Mahoney Critical lower limb ischemia (Primary Dx); [facility] MD Sadaf Pre-procedural examination [facility] [phone] VASCULAR SURGERY [phone] [place] [address] Social History Tobacco Use Types Packs/Day Years [...] Sign Reading Time Taken Comments Blood Pressure 149/72 04/26/2021 2:00 PM EDT Pulse 67 04/26/2021 11:50 AM EDT Temperature 36.2 ??C (97.2 ??F) 04/26/2021 12:04 PM EDT Respiratory Rate 14 04/26/2021 2:00 PM EDT Oxygen Saturation 97% 04/26/2021 2:00 PM EDT Inhaled Oxygen Concentration - - Weight 78.6 kg (173 lb 4.5 oz) 04/26/2021 8:34 AM EDT Height - - Body Mass Index 26.35 03/22/2021 11:23 AM EDT documented in this encounter Discharge Instructions Discharge InstructionsMcChago Lofton RN - 04/26/2021 11:12 AM EDT [facility] Interventional Radiology Post Angiography Instructions Procedure: Left Lower Extremity Angiogram Puncture Site: Right groin / right femoral artery Date: 04/26/21 Physician: Dr Mahoney 1. At home we advise you to rest quietly in bed or on the couch with your hip straight until the next morning. Until the next morning you may get up only to go to the bathroom. 2. Resume your previous diet. Drink 6-8 ounces of fluid per hour for the next 8 hours. Avoid alcoholic or caffeinated beverages for 24 hours. 3. Avoid strenuous activity for the next 48 hours, particularly in the next 24 hours. Stair climbingshould be kept to a minimum. Do not lift objects heavier than 10-15 pounds for the next 48 hours Avoid straining for bowel movements as you can pop open the clot that has formed on the artery. 4. If you develop bulging under the skin or bleeding at the puncture site, put direct pressure on the puncture site for 15 minutes and call your doctor. If the bleeding persists, reapply pressure, and go to your local Emergency Department. 5. If you notice a sudden change in the feeling (numbness, tingling and/or pain) of your leg on the side of the puncture call your doctor. 6. You may develop a bruise at the puncture site. This should go away within a week to 10 days. If abulge develops after the first three days, call your doctor or the Radiology/Vascular Department here. Report signs of infection (redness, swelling, discharge, soreness, or fever) to your doctor. 7. Leave the bandage on for 24-48 hours. You may shower the following day after the procedure. You should NOT swim or tub bathe for [address] for 24 hours after the procedure. Do not sign any important documents or smoke unattended for 24 hours. You may return to work with the above restrictions on . 9. If you have any questions or concerns, please call the Vascular Department at until 4:45pm. After 4:45pm call and ask for the Vascular resident account liaison hospice. 10. If you are a diabetic and take Metformin or Janumet, Do not take it for 2 days after the procedure. XX You have received medication during your procedure to help lesson anxiety and keep you comfortable and which affects judgement and reaction time. We recommend that you do not drive, operate equipment, sign any important documents, or smoke unattended for 24 hours following your procedure. Because of the sedation please be careful on stairs, as you may be unsteady on your feet. You may resume your regular diet as tolerated. IV site -- slight redness, or tenderness is normal, you can use a warm compress. If tenderness and redness increases or foul drainage occurs, please contact your M. D. 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 At home we advise you to rest quietly in bed or on the couch with your hip straight until the next morning. Until the next morning you may get up only to go to the bathroom. 2. Resume your previous diet. Drink 6-8 ounces of fluid per hour for the next 8 hours. Avoid alcoholic or caffeinated beverages for 24 hours. 3. Avoid strenuous activity for the next 48 hours, particularly in the next 24 hours. Stair climbingshould be kept to a minimum. Do not lift objects heavier than 10-15 pounds for the next 48 hours Avoid straining for bowel movements as you can pop open the clot that has formed on the artery. 4. If you develop bulging under the skin or bleeding at the puncture site, put direct pressure on the puncture site for 15 minutes and call your doctor. If the bleeding persists, reapply pressure, and go to your local Emergency Department. 5. If you notice a sudden change in the feeling (numbness, tingling and/or pain) of your leg on the side of the puncture call your doctor. 6. You may develop a bruise at the puncture site. This should go away within a week to 10 days. If abulge develops after the first three days, call your doctor or the Radiology/Vascular Department here. Report signs of infection (redness, swelling, discharge, soreness, or fever) to your doctor. 7. Leave the bandage on for 24-48 hours. You may shower the following day after the procedure. You should NOT swim or tub bathe for [address] for 24 hours after the procedure. Do not sign any important documents or smoke unattended for 24 hours. You may return to work with the above restrictions on . 9. If you have any questions or concerns, please call Interventional Radiology Department at until 6pm. After 6pm, or on weekends or hoildays, call and ask for the vice president of product marketing account liaison hospice. OR Vascular Department at until 4:45pm. After 4:45pm call and ask for the Vascular resident account liaison hospice. 10. If you are a diabetic and take Metformin or Janumet, Do not take it for 2 days after the procedure. XX You have received medication during your procedure to help lesson anxiety and keep you comfortable and which affects judgement and reaction time. We recommend that you do not drive, operate equipment, sign any important documents, or smoke unattended for 24 hours following your procedure. Because of the sedation please be careful on stairs, as you may be unsteady on your feet. You may resume your regular diet as tolerated. IV site -- slight redness, or tenderness is normal, you can use a warm compress. If tenderness and redness increases or foul drainage occurs, please contact your M. D. documented in this encounter Medications at Time of Discharge Medication Sig Dispensed Refills Start Date End Date ibuprofen (Advil;Motrin) Take 600 mg by mouth 0 200 mg Tablet every 6 hours as needed. For dysuria and urinary frequency tamsulosin (FLOMAX) 0.4 0.8 mg nightly. 11 019 mg Capsule atorvastatin (Lipitor) Take 1 tablet by 90 tablet 1 021 10/06/2021 40 mg TabletIndications: mouth every evening. PAD (peripheral artery disease) documented as of this encounter Progress Notes Ashlie Garnett RN - 04/26/2021 1:[address] Mahoney at the bedside to discuss the procedure results and prognosis. Shyanne Rehman RN - 04/26/2021 11:09 AM EDT ANGIO NURSING DATABASE Name: ALONSO BURKS Date of : 1950 AGE: 71 y.o. [address]: [address] [place] [phone] (home) Mobile: Telephone Information: Referring Provider: Tom Mahoney REASON FOR VISIT: LLE Angiogram Order Questions Answers Where will study be performed? [facility] Radiology [120] Laterality Left Access Site? R common femoral artery Reason for exam and clinical history: Left leg rest pain Exam/Procedure requested: LLE angio Is the patient on anticoagulant / antiplatelet therapy? Aspirin *Vascular case sheet in scanned documents. No Known Allergies Pertinent PMH: Patient Active Problem List Diagnosis Code ??? Malignant neoplasm of prostate C61 ??? Primary malignant neoplasm of prostate with high risk of recurrence due to Pioneer score of 8 to10 and PSA greater than 20 C61 Date/Procedure Meds Given/Comments 04/26/21 LLE Angiogram: angioplasty and 1 stent placed to left common iliac artery. Fentanyl 200 mcg IV, Versed 3.5 mg IV, 2g Ancef, Heparin 8,000 units IV, Protamine 30 mg IV 1010 to procedure room 3 via stretcher. Onto table supine. All monitors, O2, safety strap in place.Meds per protocol. Arterial Puncture Post Procedure Site: Right groin / right femoral artery Closure device used: Mynx Time sheath removed: 1138 Time of hemostasis: 1152 Hematoma present? No Anticipated up time: 1400 Laboratory Results: Lab Results Component Value Date CREATININE 0.91 04/13/2020 Lab Results Component Value Date K 5.3 (H) 04/13/2020 documented in this encounter H&P Notes Parth Contreras MD - 04/23/2021 8:38 PM EDT Vascular Surgery Pre-Angiography H&P Chief Complaint: LLE rest pain Planned Procedure: LLE arteriogram via R femoral access HPI: Mr Burks is a 71M with a hx of prostate cancer and PVD who presents with progressive LLE claudication. He states that he can only walk about 100 feet before he needs to stop and take a rest. He is starting to endorse noctural metatarsalgia and early rest pain. He denies tissue loss. He takes a daily ASA, pletal, and statin. Past Medical History: Past Medical History: Diagnosis Date ??? Lactose intolerance ??? Prostate cancer PSHx: Past Surgical History: Procedure Laterality Date ??? PROSTATE BIOPSY 07/04/2019 Meds: Current Outpatient Medications on File Prior to Encounter Medication Sig Dispense Refill ??? atorvastatin (Lipitor) 40 mg Tablet Take 1 tablet by mouth every evening. 90 tablet 1 ??? ibuprofen (Advil;Motrin) 200 mg Tablet Take 600 mg by mouth every 6 hours as needed. For dysuriaand urinary frequency ??? tamsulosin (FLOMAX) 0.4 mg Capsule 0.8 mg nightly. 11 No current facility-administered medications on file prior to encounter. Allergies: Patient has no known allergies. Social Hx: Social History Socioeconomic History ??? Marital status: Spouse name: None ??? Number of children: None ??? Years of education: None ??? Highest education level: None Occupational History ??? 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 Smoking status: Never Smoker ??? Smokeless tobacco: Never Used Vaping Use ??? Vaping Use: Never used Substance and Sexual Activity ??? Alcohol use: Yes Comment: occasional beer ??? Drug use: Never ??? Sexual activity: None Other Topics Concern ??? None Social History Narrative ??? None Social Determinants of Health Financial Resource Strain: ??? Difficulty of Paying Living Expenses: Food Insecurity: ??? Worried About Running Out of Food in the Last Year: ??? Ran Out of Food in the Last Year: Transportation Needs: ??? Lack of Transportation (Medical): ??? Lack of Transportation (Non-Medical): Physical Activity: ??? Days of Exercise per Week: ??? Minutes of Exercise per Session: Family hx: Family History Problem Relation Age of Onset ??? Cancer Maternal Grandfather 80 throat ROS: As per HPI. Remainder of ROS is otherwise negative. Physical Exam: General: NAD HEENT: NC/AT Cardiac: regular Lungs: nonlabored Abd: soft Ext: RLE: +femoral pulse, +DP/PT signals LLE: +femoral pulse, +DP/PT signals Neuro: nonfocal Laboratory: Creatinine: Lab Results Component Value Date CREATININE 0.82 04/26/2021 Studies: ABIs 03/22/2021 Findings: ?? Right ?Pressure (mm Hg) ?? ROXANNE ??Waveform ?TBI ?? Brachial Artery ?140 ? Dorsalis Pedis (Ankle) Artery ?59 ?0.42 ??Monophasic ? Posterior Tibial (Ankle) Artery ??72 ?0.51 ??Bamberg-Biphasic ? Great Toe ?40 ? 0.29 ? Left ? Pressure (mm Hg) ?? ROXANNE ??Waveform ? TBI ?? Brachial Artery ?140 ? Dorsalis Pedis (Ankle) Artery ?47 ?0.34 ??Monophasic ? Posterior Tibial (Ankle) Artery ?Absent ? Great Toe ?19 ?0.14 ? Interpretation: ?? RIGHT: Moderate lower extremity arterial occlusive disease. Toe-brachial index substantially lower than ankle-brachial index indicates presence of moderately severe arterial occlusive disease in the foot. No significant change compared to previous exam; however, ROXANNE were previously in the moderately severe category. ?? LEFT: Severe lower extremity arterial occlusive disease. No significant change compared to previous exam; however, ROXANNE were previously in the moderately severe category. Posterior tibial artery appears occluded by limited duplex at the ankle. This is a new finding from the previous exam. ?? CTA reviewed: Multilevel disease including left common and external iliac stenosis, long- segment SFA occlusion, and infra-geniculate disease with posterior tibial artery occlusion. Assessment/Plan: Mr Burks is a 71M who presents with progressive LLE short distance claudication and early rest pain. Plan for LLE arteriogram via R femoral access ASA: 2 Mallampati: 3 Cr: Lab Results Component Value Date CREATININE 0.82 04/26/2021 Parth Contreras MD Vascular Surgery Resident documented in this encounter Procedure Notes Parth Contreras MD - 04/26/2021 12:07 PM EDT Vascular Surgery Interventional Procedure Note Date of procedure: 04/26/21 Pre-Procedure Diagnosis: Left leg rest pain Post-Procedure Diagnosis: Left leg rest pain Procedure: - Rt. femoral arterial access with fluoroscopic and ultrasound guidance - Aortogram - second order selective catheterization of left external iliac artery - LLE angiogram - Attempted crossing of left SFA occlusion - Left common iliac artery stent graft placement (VBX 9x59mm), post-dilated to 10mm distally and 12mm proximally - Completion angiogram - RLE angiogram - Mynx closure Surgeon(s): MD Giselle Greenberg MD Bjoern Suckow, MD Intra-procedural Medications: Versed dose: 3.5 mg Fentanyl dose: 200 mcg Local anesthetic: 6 cc 1% lidocaine Heparin: Yes 8000 Units Protamine: Yes 30 mg Antibiotics: ancef 2g Fluoro Time: 17.0 min Contrast: 100 mL Sheath Size: 7 Fr Indications for the procedure: Mr Burks is a 71M with a hx of prostate cancer and PVD who presents with progressive LLE claudication. He states that he can only walk about 100 feet before he needs to stop and take a rest. He is starting to endorse noctural metatarsalgia and early rest pain. He denies tissue loss. He takes a dailyASA, pletal, and statin. Findings: - Aortogram: widely patent infrarenal aorta, right common iliac and external iliac arteries widely patent, right internal iliac artery patent wit sever proximal stenosis, left common iliac artery patent with severe focal stenosis of mid segment, left external iliac artery widely patent, left internal iliac artery not well visualized - LLE arteriogram: common femoral artery widely patent, profunda widely patent, SFA patent proximally but occludes shortly after takeoff, popliteal artery reconstitutes behind the knee, AT widely patent with runoff to foot, TP trunk, PT, and peroneal arteries not well visualized, peroneal may fill late from collaterals in distal calf - Intervention: Left common iliac artery stent graft placement (VBX 9x59mm), post-dilated to 10mm distally and 12mm proximally - Completion angiogram: widely patent left BRIANA stent graft, no evidence of extravasation or dissection Procedure in detail: The patient was properly identified in the pre-operative holding area. After discussions of the risks and benefits, operative consent was obtained. The patient was brought to the angiography suite andplaced on the angio table. The patient was prepped and draped in the usual sterile fashion. A time-out was performed by the attending surgeon confirming the patient, the intended procedure, the side ofintervention and equipment needed. Split doses of fentanyl and versed were administered for conscious sedation by the Interventional Radiology nurse during continuous monitoring of pulse, blood pressure and oxygen saturation. After injection of local anesthetic, percutaneous access was obtained via the Rt. femoral artery under fluoroscopic and ultrasound guidance using a micro puncture technique. A cope wire was inserted and upsized to a 5 Nigerian sheath over a J-wire. A 5F Omni flush catheter was then advanced into the infrarenal aorta over the wire. Diagnostic aortography was performed with the above findings. We then used a stiff glidewire and flush catheter to select the left external iliac artery. The catheter was advanced, the wire was removed, and diagnostic LLE arteriogram was obtained in stations with the findings above. We then advanced a stiff amplatz wire into the left profunda artery, the catheter was removed, and sheath exchange was performed for a 7Fr 45cm destination sheath, which was placed in the distal common femoral artery. We attempted to using a rubicon catheter and glidewire to cross the patient's long segment SFA occlusion, however we were unable to remain intraluminal.We then decided to abort this attempt and turned our attention to the left common iliac artery lesion. The destination sheath was pulled back to the left common iliac artery. A VBX 9x59mm stent graft was deployed in the proximal left BRIANA, with the proximal end at the level of the aortic bifurcation. This was then post-dilated with a [id number] [place] balloon proximally and a [id number] [place] balloon dist ally. A completion angiogram was obtained with the findings above. Sheath exchange was then performed for a short 7Fr sheath. A mynx closure device was deployed and manual pressure was then held for 12minutes until adequate hemostasis was obtained. The wound was dressed with a sterile gauze and tegade rm. The patient was taken to the recovery room having suffered no apparent untoward event. Dr. Mahoney was present for the entire procedure. Plan: -flat for 2 hours -follow up in 2 weeks with ABIs and vein mapping Parth Contreras MD 04/26/2021 12:07 PM Associated attestation - Tom Mahoney MD - 05/02/2021 10:56 PM EDT Attending Attestation I was the attending physician supervising the resident/fellow in the above care and I was present with the resident/fellow for the entire procedure. I was present during the intraservice time as documented by the sedation RN. Tom Mahoney MD, MS Section of Vascular Surgery documented in this encounter Plan of Treatment Upcoming Encounters Date Type Specialty Care Team Description 05/18/2022 Office Visit Radiation Oncology Grace Raymond, MACHINE FE[facility]ER [facility] RADIATION ONCDEBBIE [facility], [place] [address] (Wo rk) 05/18/2022 Infusion Hematology and Oncology documented as of this encounter Procedures Procedure Name Priority Date/Time Associated Diagnosis Comme nts VS ARTERIOGRAM LOWER Routine 04/26/2021 12:00 Critical lower l imb Results for this EXTREMITY VASCULAR PM EDT ischemia procedure are in SURGERY Pre-procedural the results examination section. documented in this encounter Results Lower extremity vein map, bilat (06/03/2021 10:25 AM EDT) Component Value Ref Test Analysis Performed At [facility] Range Method Time Signature VB Text Department: Vascular Surgery Lab [facility] Report Patient: [id number] (ALONSO BURKS) CPT: 76757 ICD10: I70.229;Z01.818 Referring Physician: TOM MAHONEY ?? Phone: Indications: ??preop planning for bypass Patient Positioning: ??Reverse Trendelenburg ICD10 Diagnosis Code: I70.229, Z01.818 Findings: Right ?Diameter (mm) ??Depth (mm) ?? GSV, Near SFJ ?4.9 ? GSV, Proximal Thigh ?1.2 ?16.8 ?? GSV, Mid Thigh ? 1.2 ?16.6 ? ? GSV, Distal Thigh ?1.1 ?15.5 ?? GSV, ??Knee ? 1.4 ?12. 5 ?? GSV Prox Calf ?0.5 ?12.0 ?? Left ? Diameter (mm) ??Depth (mm) ?? GSV, Near SFJ ?5.9 ? GSV, Proximal Thigh ?1.1 ?15.0 ?? GSV, Mid Thigh ? 1.2 ?18.1 ? ? GSV, Distal Thigh ?1.5 ?19.4 ?? GSV, ??Knee ? 1.1 ?14. 4 ?? GSV Prox Calf ?1.6 ?10.2 ?? Interpretation: Patent great saphenous vein with no evidence of thrombus bilaterally. No previous study in our vascular lab database for compariso n. Electronically Signed by: TOM MAHONEY on 2021-06-03 11:45: 59 AM VB Text End of Report [facility] Report Specimen (Source) Anatomical Collection Method Collection Time Re ceived Time Location / / Volume Laterality 06/03/2021 10:25 AM EDT Tom Mahoney MD VASCULAR ORDERABLES Performing Organization Address City/State/ZIP Code Phon e Number [facility] ROXANNE, legs, multiple levels (06/03/2021 10:25 AM EDT) Component Value Ref Test Analysis Performed At [facility] Range Method Time Signature VB Text Department: Vascular Surgery Lab [facility] Report Patient: [id number] (ALONSO BURKS) CPT: 42813 ICD10: I70.229 Referring Physician: TOM MAHONEY ?? Phone: Indications: ??PVD Diabetes mellitus: no ICD10 Diagnosis Code: I70.229 Findings: Right ?Pressure (mm Hg) ?? ROXANNE ??Waveform ? TBI ?? Brachial Artery ?132 ? Dorsalis Pedis (Ankle) Arter y ?64 ?0.48 ??Monophasic ? Posterior Tibial (Ankle) Art namrata ??62 ?0.47 ??Monophasic ? Great Toe ?37 ?0.28 ?? Left ? Pressure (mm Hg) ?? ROXANNE ??Waveform ? TBI ?? Brachial Artery ?127 ? Dorsalis Pedis (Ankle) Arter y ?62 ?0.47 ??Monophasic ? Posterior Tibial (Ankle) Art namrata ??0 ? 0.00 ? Great Toe ?41 ?0.31 ?? Interpretation: RIGHT: Moderately severe lower extremity arterial occlusive disease. No significant change compared to previous exam. LEFT: Moderately severe lower extremity arterial occlu sive disease. Improved compared to previous exam. Previous ABIs with change from previous value: Date ?RIGHT DP ?? RIGHT PT ?? RT GR TOE ??RT Sec T OE ??0.37 ? 0.48 ? ---- ? ---- ??0.42(+.05) 0.51(+.03) 0.29 ? ---- Current ? 0.48(+.06) 0.47(-.04) 0.28(-.01) ---- Date ?LEFT DP ?LEFT PT ?LT GR TOE LT Sec T OE ??0.42 ? 0.38 ? ---- ? ---- ??0.34(-.08) ---- ? 0.14 ? ---- Current ? 0.47(+.13) 0.00 ? 0.31(+.17) ---- Electronically Signed by: TOM MAHONEY on 2021-06-03 11:46: 22 AM VB Text End of Report V[facility] Report Specimen (Source) Anatomical Collection Method Collection Time Re ceived Time Location / / Volume Laterality 06/03/2021 10:25 AM EDT Tom Mahoney MD VASCULAR ORDERABLES Performing Organization Address City/State/ZIP Code Phon e Number [facility] VS Arteriogram Lower Extremity Vascular Surgery (04/26/2021 12:00 PM EDT) Anatomical Region Laterality Modality X-Ray Angiography Specimen (Source) Anatomical Location Collection Method / Collectio n Time Received Time / Laterality Volume Narrative 05/09/2021 10:15 AM EDT Attestation signed by Tom Mahoney MD at 05/02/2021 10:56 PM Attending Attestation I was the attending physician supervisin g the resident/fellow in the above care and I was present with the resident/fell ow for the entire procedure. I was present during the intraservice ti me as documented by the sedation RN. Tom Mahoney MD, MS Section of Vascular Surgery Vascular Surgery Interventional Procedur e Note Date of procedure: 04/26/21 Pre-Procedure Diagnosis: Left leg rest p ain Post-Procedure Diagnosis: Left leg rest pain Procedure: - Rt. femoral ??arterial access with flu oroscopic and ultrasound guidance - Aortogram - second order selective catheterization of left external iliac artery - LLE angiogram - Attempted crossing of left SFA occlusi on - Left common iliac artery stent graft p lacement (VBX 9x59mm), post-dilated to 10mm distally and 12mm proximally - Completion angiogram - RLE angiogram - Mynx closure Surgeon(s): MD Giselle Greenberg MD Bjoern Suckow, MD Intra-procedural Medications: Versed dose: 3.5 mg Fentanyl dose: 200 mcg Local anesthetic: 6 cc 1% lidocaine Heparin: Yes 8000 Units Protamine: Yes 30 mg Antibiotics: ancef 2g Fluoro Time: 17.0 min Contrast: 100 mL Sheath Size: ??7 Fr Indications for the procedure: Mr Burks is a 71M with a hx of prostat e cancer and PVD who presents with progressive LLE claudication. He states that he can only walk about 100 feet before he needs to stop and take a rest. He is starting to endorse noctural metatarsalgia and early rest pain. He de nies tissue loss. He takes a daily ASA, pletal, and statin. Findings: - Aortogram: widely patent infrarenal ao rta, right common iliac and external iliac arteries widely patent, right inte rnal iliac artery patent wit sever proximal stenosis, left common iliac art namrata patent with severe focal stenosis of mid segment, left external iliac artery widely patent, left internal iliac artery not well visualized - LLE arteriogram: common femoral artery widely patent, profunda widely patent, SFA patent proximally but occludes short ly after takeoff, popliteal artery reconstitutes behind the knee, AT widely patent with runoff to foot, TP trunk, PT, and peroneal arteries not well visua lized, peroneal may fill late from collaterals in distal calf - Intervention: Left common iliac artery stent graft placement (VBX 9x59mm), post-dilated to 10mm distally and 12mm p roximally - Completion angiogram: widely patent le ft BRIANA stent graft, no evidence of extravasation or dissection Procedure in detail: ?The patient was proper ly identified in the pre-operative holding area. After discussions of the risks and benefits, operative consent was obtained. The patient was brought to the angiography suite and placed on the angio table. The patient was prepped and draped in the usual sterile fashion. A time-out was performed by the attending surgeon confirming the patient, the intended procedure, the side of interven tion and equipment needed. Split doses of fentanyl and versed were administered for conscious sedation by the Interventional Radiology nurse ??during continuous monitoring of pulse, blood pressure and oxygen saturation. After in jection of local anesthetic, percutaneous access was obtained via the Rt. femoral ??artery under fluoroscopic and ultrasound guidance using a micro pu ncture technique. A cope wire was inserted and upsized to a 5 Nigerian sheat h over a J-wire. A 5F Omni flush catheter was then advanced into the infr arenal aorta over the wire. Diagnostic aortography was performed with the above findings. We then used a stiff glidewire and flush catheter to select t he left external iliac artery. The catheter was advanced, the wire was krishna liu, and diagnostic LLE arteriogram was obtained in stations with the findings a kendall. We then advanced a stiff amplatz wire into the left profunda artery, the catheter was removed, and sheath exchange was performed for a 7Fr 45cm de stination sheath, which was placed in the distal common femoral artery. We att empted to using a rubicon catheter and glidewire to cross the patient's long se gment SFA occlusion, however we were unable to remain intraluminal. We then d ecided to abort this attempt and turned our attention to the left common iliac a rtery lesion. The destination sheath was pulled back to the left common iliac art namrata. A VBX 9x59mm stent graft was deployed in the proximal left BRIANA, with the proximal end at the level of the aortic bifurcation. This was then post-d ilated with a [id number] [place] balloon proximally and a [id number] [place] balloon distally. A completion angiogram was obtained with the findings above. Sheath exchange was then performed for a short 7Fr sheath. A mynx closure device was de ployed and manual pressure was then held for 12 minutes until adequate hemostasis was obtained. The wound was dressed with a sterile gauze and tegaderm. The p atient was taken to the recovery room having suffered no apparent untoward vivek nt. Dr. Mahoney was present for the entire pr ocedure. Plan: -flat for 2 hours -follow up in 2 weeks with ABIs and vein mapping Thank you for letting us participate in the care of this patient. ??If you are a health care provider and have any questi ons regarding this report, please contact the number below. ??For patients who have questions please contact the health senior resident care director that requested your imaging first. ? Procedure Note Tom Mahoney MD - 05/09/2021Formatt ing of this note might be different from the original. Attestation signed by Tom Mahoney MD at 05/02/2021 10:56 PM Attending Attestation I was the attending physician supervisin g the resident/fellow in the above care and I was present with the resident/fell ow for the entire procedure. I was present during the intraservice ti me as documented by the sedation RN. Tom Mahoney MD, MS Section of Vascular Surgery Vascular Surgery Interventional Procedur e Note Date of procedure: 04/26/21 Pre-Procedure Diagnosis: Left leg rest p ain Post-Procedure Diagnosis: Left leg rest pain Procedure: - Rt. femoral arterial access with fluor oscopic and ultrasound guidance - Aortogram - second order selective catheterization of left external iliac artery - LLE angiogram - Attempted crossing of left SFA occlusi on - Left common iliac artery stent graft p lacement (VBX 9x59mm), post-dilated to 10mm distally and 12mm proximally - Completion angiogram - RLE angiogram - Mynx closure Surgeon(s): MD Giselle Greenberg MD Bjoern Suckow, MD Intra-procedural Medications: Versed dose: 3.5 mg Fentanyl dose: 200 mcg Local anesthetic: 6 cc 1% lidocaine Heparin: Yes 8000 Units Protamine: Yes 30 mg Antibiotics: ancef 2g Fluoro Time: 17.0 min Contrast: 100 mL Sheath Size: 7 Fr Indications for the procedure: Mr Burks is a 71M with a hx of prostat e cancer and PVD who presents with progressive LLE claudication. He states that he can only walk about 100 feet before he needs to stop and take a rest. He is starting to endorse noctural metatarsalgia and early rest pain. He de nies tissue loss. He takes a daily ASA, pletal, and statin. Findings: - Aortogram: widely patent infrarenal ao rta, right common iliac and external iliac arteries widely patent, right inte rnal iliac artery patent wit sever proximal stenosis, left common iliac art namrata patent with severe focal stenosis of mid segment, left external iliac artery widely patent, left internal iliac artery not well visualized - LLE arteriogram: common femoral artery widely patent, profunda widely patent, SFA patent proximally but occludes short ly after takeoff, popliteal artery reconstitutes behind the knee, AT widely patent with runoff to foot, TP trunk, PT, and peroneal arteries not well visua lized, peroneal may fill late from collaterals in distal calf - Intervention: Left common iliac artery stent graft placement (VBX 9x59mm), post-dilated to 10mm distally and 12mm p roximally - Completion angiogram: widely patent le ft BRIANA stent graft, no evidence of extravasation or dissection Procedure in detail: The patient was properly identified in the pre-operative holding area. After discussions of the risks and benefits, operative consent was obtained. The patient was brought to the angiography suite and placed on the angio table. The patient was prepped and draped in the usual sterile fashion. A time-out was performed by the attending surgeon confirming the patient, the intended procedure, the side of interven tion and equipment needed. Split doses of fentanyl and versed were administered for conscious sedation by the Interventional Radiology nurse during co ntinuous monitoring of pulse, blood pressure and oxygen saturation. After in jection of local anesthetic, percutaneous access was obtained via the Rt. femoral artery under fluoroscopic and ultrasound guidance using a micro pu ncture technique. A cope wire was inserted and upsized to a 5 Nigerian sheat h over a J-wire. A 5F Omni flush catheter was then advanced into the infr arenal aorta over the wire. Diagnostic aortography was performed with the above findings. We then used a stiff glidewire and flush catheter to select t he left external iliac artery. The catheter was advanced, the wire was krishna lui, and diagnostic LLE arteriogram was obtained in stations with the findings a kendall. We then advanced a stiff amplatz wire into the left profunda artery, the catheter was removed, and sheath exchange was performed for a 7Fr 45cm de stination sheath, which was placed in the distal common femoral artery. We att empted to using a rubicon catheter and glidewire to cross the patient's long se gment SFA occlusion, however we were unable to remain intraluminal. We then d ecided to abort this attempt and turned our attention to the left common iliac a rtery lesion. The destination sheath was pulled back to the left common iliac art namrata. A VBX 9x59mm stent graft was deployed in the proximal left BRIANA, with the proximal end at the level of the aortic bifurcation. This was then post-d ilated with a [id number] [place] balloon proximally and a [id number] [place] balloon distally. A completion angiogram was obtained with the findings above. Sheath exchange was then performed for a short 7Fr sheath. A mynx closure device was de ployed and manual pressure was then held for 12 minutes until adequate hemostasis was obtained. The wound was dressed with a sterile gauze and tegaderm. The p atient was taken to the recovery room having suffered no apparent untoward vivek nt. Dr. Mahoney was present for the entire pr ocedure. Plan: -flat for 2 hours -follow up in 2 weeks with ABIs and vein mapping Thank you for letting us participate in the care of this patient. If you are a health care provider and have any questi ons regarding this report, please contact the number below. For patients w ho have questions please contact the health senior resident care director that requested your imaging first. Tom Mahoney MD IMG IR ORDERABLES documented in this encounter Visit Diagnoses Diagnosis Critical lower limb ischemia - Primary Unspecified circulatory system disorder Pre-procedural examination Preoperative examination, unspecified documented in this encounter Administered Medications Inactive Administered Medications - up to 3 most recent administrations Medication Order MAR Action Action Date Dose Rate Site ceFAZolin (Ancef) 2 g in New Bag 04/26/2021 10:20 AM EDT 2 g 200 mL/hr dextrose 5% 100 mL infusion 2 g, Intravenous, ONCE, 1 dose, On Sun04/26/21 at 1000, Administer over 30 Minutes, Redose every 3 hours if CrCl is greater than 20. Redose every 8 hours if CrCl is less than 20., Angio/IR (Day of Procedure), Indication for (Active or Suspected): Prophylaxis fentaNYL (pf) (50 mcg/mL) multi-dose Given 04/26/2021 11:15 AM E DT 50 mcg injection 25-50 mcg 25-50 mcg, Intravenous, EVERY 3 MIN PRN, Starting on Sun04/26/21 at 0939, Until Sun04/26/21 at 1418, Pain, per unit protocol, - Start dose 50 mcg (reduce dose to 25 mcg if history of sedation sensitivity). - Titration dose 25-50 mcg IV, (based on patient response) every 3 minutes PRN, to maintain procedural pain less than 2 per pain Scale. Maximum dose: 50 mcg/dose, 250 mcg/hour For use in Interventional Radiology (IR) only for procedural sedation with direct provider supervision and verbal order., Angio/IR (Intra-Procedure), Routine Given 04/26/2021 11:05 AM EDT 25 mcg Given 04/26/2021 10:50 AM EDT 25 mcg heparin (porcine) (1,000 units/mL) Given 04/26/2021 10:52 AM EDT 8,000 Units injection 1,000-10,000 Units 1,000-10,000 Units, Intravenous, ONCE, 1 dose, On Sun04/26/21 at 1000, For use in Interventional Radiology (IR) only for procedure with direct provider supervision and verbal order., Angio/IR (Intra-Procedure), Routine iodixanoL (Visipaque) (320 mg/mL) injection Given 11/2020 11:40 AM EDT 100 mLs solution 1-400 mL 1-400 mL, Intravenous, ONCE, 1 dose, On 04/26/21 at 1000, For intra-procedural use by proceduralist., Angio/IR (Intra-Procedure), Routine lidocaine (Xylocaine) 1% (10 mg/mL) injection Given 10:28 AM EDT 10 mg 10 mg 10 mg, Subcutaneous, ONCE, 1 dose, On Sun04/26/21 at 1000, For use in Interventional Radiology (IR) only for procedure with direct provider supervision and verbal order., Angio/IR (Intra-Procedure), Routine midazolam (pf) (Versed) (1 mg/mL) multi-dose Given 11/2020 11:17 AM EDT 0.5 mg injection 0.5-1 mg 0.5-1 mg, Intravenous, EVERY 3 MIN PRN, Starting on Sun04/26/21 at 0939, Until Sun04/26/21 at 1418, Sleep, - Start dose; 1 mg (Reduce dose to 0.5 mg if history of sedation sensitivity). - Titration dose: 0.5 mg - 1 mg (based on patient response) every 3 minutes PRN to obtain RASS score of -3. Maximum dose: 1 mg per dose, 5 mg/hour. For use in Interventional Radiology (IR) only for procedural sedation with direct provider supervision and verbal order., Angio/IR (Intra-Procedure), Routine Given 04/26/2021 11:05 AM EDT 0.5 mg Given 04/26/2021 10:50 AM EDT 0.5 mg protamine (10 mg/mL) injection 50 mg Given 04/26/2021 11:35 AM EDT 30 mg 50 mg, Intravenous, ONCE, 1 dose, On 04/26/21 at 1000, Angio/IR (Intra-Procedure), Routine sodium chloride 0.9 % (flush) (BD PosiFlush Given 04/26/2021 10:00 AM EDT 5 mLs Normal Saline 0.9) flush 5 mL 5 mL, Intravenous, 2 TIMES DAILY, First dose on 04/26/21 at 1000, Until Discontinued, Routine documented in this encounter Care Teams Reinsurance Analyst Relationship Specialty Start Date End Date Ursula Jacob PCP - General Family Medicine 03/16/21 [address] [place] [address] documented as of this encounter
--- OUTSIDE RECORDS SUMMARY | 2022-05-12 01:18 | XMS_ITS | Encounter Summary ---
:1950 Author Organization [facility] [place] [address] Care Team Providers Name Role Phone Ursula Jacob Primary Care Provider Encounter Details Date Type Department Care Team Description 11/17/2021 Office Visit Radiation Oncology at [facility] neoplasm of [facility] RELIGION DEPARTMENT CHAIR prostate (Primary Dx) [address] [place] [address] RADIATION ONCOLOGY [phone] [place] [id number] Social History Tobacco Use Types Packs/Day Years [...] Sign Reading Time Taken Comments Blood Pressure 110/62 11/17/2021 10:38 AM EST Pulse 80 11/17/2021 10:38 AM EST Temperature 36.7 ??C (98.1 ??F) 11/17/2021 10:38 AM EST Respiratory Rate 18 11/17/2021 10:38 AM EST Oxygen Saturation 99% 11/17/2021 10:38 AM EST Inhaled Oxygen Concentration - - Weight 77.1 kg (170 lb) 11/17/2021 10:38 AM EST Height 172.3 cm (5' 7.84) 11/17/2021 10:38 AM EST Body Mass Index 25.97 11/17/2021 10:38 AM EST documented in this encounter Progress Notes Mandi Grace Ramirez, RELIGION DEPARTMENT CHAIR - 11/17/2021 9:30 AM ESTSummary: 71-year-old male diagnosed with high risk prostate cancer in 2019. Plan 36 months ADT. EBRTcompl 01/05/20. Images from the original note were not included. [facility] [place] [address] Phone: RADIATION ONCOLOGY FOLLOW UP NOTE Date of visit: 11/16/2021 Patient Rey Jean Baptiste 1950 PCP: Ursula Jacob Urologist:Jean-Claude Woodall MD Radiation oncologist: Dr. Haja Marshall Chief Complaint: follow up/labs/leuprolide for prostate cancer Time since completed RT: Completion 01/05/20 On flow max .8mg ADT: Lupron on tx plan q 3mos due today Current treatment:Surveillance, labs [...] #8 (22.5mg) -08/23/21 Lupron #9 (22.5mg)- 11/17/21 DUE Coverage to 27 months at this point. 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 Medications 08/23/21 1521 Medication Sig Taking? atorvastatin (Lipitor) 40 mg [...] Extremity Vascular Surgery 04/26/2021 Tom Mahoney MD [facility] INTERVENTIONL RAD Family History Problem Relation Age of Onset ??? Cancer Maternal Grandfather 80 throat Social History Tobacco Use ??? Smoking status: Never Smoker ??? Smokeless tobacco: Never Used Vaping Use ??? Vaping Use: Never used Substance Use Topics ??? Alcohol use: Yes Comment: occasional beer ??? Drug use: Never Review of Symptoms: I reviewed the IPSS/KELL/Epic-Cp survey results from today Patient concerns for today's visit: states no concerns General:Feels he is doing well and says no changes from last visit. Fatigue:mild to moderate, drive, motivation down somewhat. 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 Notices upper body strength less. Exercise:with [...] chair Physical Examination: Body mass index is 25.97 kg/m??. BP 110/62 (Patient Position: Sitting) Pulse 80 Temp 36.7 ??C (98.1 ??F) (Temporal) Resp 18 Ht 172.3 cm (5' 7.84) Wt 77.1 kg (170 lb) Constitutional: seen in clinic no distress [...] Reviewed this visit: Date PSA Test Notes 11/07/21 0.01 <7.0 08/16/21 0.01 <7.0 05/09/21 [...] 3 months for next labs and lupron. Coverage today is completing 27 months. 3 more inj to go Medical Decision Making/Recommendations/Plan: # prostate cancer: reviewed [...] Smoking:never Alcohol: rare Annual exam with PCP: [facility] Up to date on vaccinations:Covid vax at [facility] maybe 4 months ago. Booster sched in [...] the radiation therapy/prostate cancer [facility] MSN, RELIGION DEPARTMENT CHAIR, ELEMENTARY SUBSTITUTE TEACHER-C Nurse Practitioner Radiation Oncology documented in this encounter Plan of Treatment Upcoming Encounters Date Type Specialty Care Team Description 05/18/2022 Office Visit Radiation Oncology [facility] APRN [facility] RADIATION ONCDE[place]BIE [place], [place] [address] (Wo rk) 05/18/2022 Infusion Hematology and Oncology Scheduled Orders Name Type Priority Associated Diagnoses Order S chedule PSA (Ultrasensitive) Lab Routine Malignant neoplasm o f Expected: 02/17/2022 prostate (Approximate), Expires: 2021 Testosterone, total Lab Routine Malignant neoplasm of Expected: 02/16/2022 prostate (Approximate), Expires: 2021 CBC (with Diff) Lab Routine Malignant neoplasm of Exp ected: 02/16/2022 prostate (Approximate), Expires: 2021 Comprehensive metabolic Lab Routine Malignant neoplas m of Expected: 02/16/2022 panel (non-fasting) prostate (Approxi mate), Expires: 2021 documented as of this encounter Visit Diagnoses Diagnosis Malignant neoplasm of prostate - Primary documented in this encounter Care Teams Auditor Appraiser Relationship Specialty Start Date End Date Ursula Jacob PCP - General Family Medicine 03/16/21 [address] [place] [address] documented as of this encounter
--- OUTSIDE RECORDS SUMMARY | 2022-05-12 01:18 | XMS_ITS | Encounter Summary ---
:1950 Author Organization [place] [address] Care Team Providers Name Role Phone Ursula Jacob Primary Care Provider Encounter Details Date Type Department Care Team Description 04/26/2021 Laboratory Appointment Lab 3L Yan Cindy Critical lower limb ischemia; [facility] [place] [id number] Social History Tobacco Use Types Packs/Day Years [...] Office Visit Radiation Oncology [facility] APRN [facility] RADIATION ONCDEBBIE [place], [place] [address] (Wo rk) 05/18/2022 Infusion Hematology and Oncology documented as of this encounter Procedures Procedure Name Priority Date/Time Associated Diagnosis Comme [facility] HC VENIPUNCTURE STAT 04/26/2021 7:56 AM Critical lower limb Results for this EDT ischemia procedure are in Pre-procedural the results examination section. documented in this encounter Results Creatinine (04/26/2021 7:56 AM EDT) P athologist Signature Creatinine 0.82 0.80 - YAN BORDEN 1.50 mg/dL [facility] Estimated GFR 89 >=60 YAN BORDEN mL/min/1.7 [facility] 3 m?? [facility] Comment: This patient? s estimated glomerular filtration rate (eGFR) is between 89 mL/min/1.73 m2 (patients with less muscl e mass per kg body weight) and 103 mL/min/1.73 m2 (patients with more muscl e mass per kg body weight) as determined by the CKD-EPI equation. Asse ssment of eGFR is not appropriate when creatinine concentrations are rapidly ch anging. For clinical decisions where creatinine clearance will affect therapy , a 24-hour urine creatinine clearance may be advised. Assignment of CKD stage 1 - 5 for patien ts with an eGFR near the transition point between stages may be based on cli nical assessment of muscle mass and symptoms in addition to eGFR. Specimen Anatomical Collection Method Collection Time Receive d Time (Source) Location / / Volume Laterality Blood 04/26/2021 7:56 AM 8:06 EDT AM EDT Resulting Agency Comment Spec In Lab Tom Mahoney MD CHEMISTRY ORDERABLES Performing Organization Address City/State/ZIP Code Phon e Number [facility] [place] [address] documented in this encounter Visit Diagnoses Diagnosis Critical lower limb ischemia Unspecified circulatory system disorder Pre-procedural examination Preoperative examination, unspecified documented in this encounter Care Teams Human Insights Lead Ads Marketing Relationship Specialty Start Date End Date Ursula Jacob PCP - General Family Medicine 03/16/21 [address] [place] [address] documented as of this encounter
--- OUTSIDE RECORDS SUMMARY | 2022-05-12 01:18 | XMS_ITS | Encounter Summary ---
:1950 Author Organization [facility] [place] [address] Care Team Providers Name Role Phone Ursula Jacob Primary Care Provider Reason for Visit Reason Comments Injections Lupron Encounter Details Date Type Department Care Team Description 02/14/2022 Infusion Hematology Oncology at [address] [phone] Social History Tobacco Use Types Packs/Day Years [...] documented as of this encounter Progress Notes Cara Granados RN - 02/14/2022 12:00 PM EDT Infusion Note Diagnosis:Prostate Cancer Treatment: Lupron Injection Lupron 22.5 mg injected in left buttocks Patient instructed on side effects of Lupron. Patient states understanding of teaching, Patient aware to call clinic with any questions or concerns. Plan: Return to clinic as scheduled. documented in this encounter Plan of Treatment Upcoming Encounters Date Type Specialty Care Team Description 05/18/2022 Office Visit Radiation Oncology Grace Raymond, ASBESTOS SIDING INSTALLER [facility] RADIATION ONCDEBBIE [facility] [place] [address] (Wo rk) 05/18/2022 Infusion Hematology and Oncology documented as of this encounter Visit Diagnoses Diagnosis Malignant neoplasm of prostate documented in this encounter Administered Medications Inactive Administered Medications - up to 3 most recent administrations Medication Order MAR Action Action Date Dose Rate Site leuprolide (Lupron Depot) Given 02/14/2022 11:44 AM 22.5 mg Left Gluteal injection 22.5 mg EDT 22.5 mg, Intramuscular, ONCE, 1 dose, On Sun02/14/22 at 1200, Routine documented in this encounter Care Teams Bottler Relationship Specialty Start Date End Date Ursula Jacob PCP - General Family Medicine 03/16/21 [address] [place] [address] documented as of this encounter
--- OUTSIDE RECORDS SUMMARY | 2022-05-12 01:18 | XMS_ITS | Encounter Summary ---
:1950 [place] [address] Care Team Providers Name Role Phone Ursula Jacob Primary Care Provider Encounter Details Date Type Department Care Team Description 06/03/2021 Tech Visit Vascular Lab at [place] Criti cal lower limb [facility] [address] Social History Tobacco Use Types Packs/Day Years [...] Office Visit Radiation Oncology Grace Raymond APRN [facility] RADIATION ONCDEBBIE [place], [place] [address] (Wo rk) 05/18/2022 Infusion Hematology and Oncology documented as of this encounter Procedures Procedure Name Priority Date/Time Associated Diagnosis Comme nts LEG MAP FOR BYPASS Routine 06/03/2021 10:25 AM Critical lower limb Results for this GRAFT, BILAT EDT ischemia procedure are i n the results section. ROXANNE, LEGS, MULTIPLE Routine 06/03/2021 10:25 AM Critical lower limb Results for this LEVELS EDT ischemia procedure are i n the results section. documented in this encounter Results ROXANNE, legs, multiple levels (06/03/2021 10:25 AM EDT) Component Value Ref Test Analysis Performed At [facility] Range Method Time Signature VB Text Department: Vascular Surgery Lab VASCUBASE Report Patient: [id number] (ALONSO BURKS) CPT: 91719 ICD10: I70.229 Referring Physician: TOM MAHONEY ?? [...] Address City/State/ZIP Code Phon e Number VASCUBASE Lower extremity vein johnson de souza (06/03/2021 10:25 AM EDT) Component Value Ref Test Analysis Performed At [facility] Range Method Time Signature VB Text Department: Vascular Surgery Lab VASCUBASE Report Patient: [id number] (ALONSO BURKS) CPT: 32891 ICD10: I70.229;Z01.818 Referring Physician: TOM MAHONEY ?? [...] disorder documented in this encounter Care Teams Integrated Marketing Intern Relationship Specialty Start Date End Date Ursula Jacob PCP - General Family Medicine 03/16/21 [address] [place] [address] documented as of this encounter
--- OUTSIDE RECORDS SUMMARY | 2022-05-12 01:18 | XMS_ITS | Clinical Summary ---
:[address] [facility] Address [address] [place] [address] Care Team Providers Name Role Phone Unknown, Provider Primary Care Provider Social History Tobacco Use Types Packs/Day Years Used Date Never Assessed Sex Assigned at Date Recorded Not on file Plan of Treatment Health Maintenance Due Date Last Done Comments Fall Risk Screening 2015 Care Teams Pc Network Technician Relationship Specialty Start Date End Date Unknown, Provider, PCP - General 07/04/19
--- OUTSIDE RECORDS SUMMARY | 2022-05-12 01:18 | XMS_ITS | Encounter Summary ---
:1950 Author Organization [facility] [place] [address] Care Team Providers Name Role Phone Ursula Jacob Primary Care Provider Encounter Details Date Type Department Care Team Description 01/17/2022 [facility]; [facility] PAD (alysia pheral artery disease); [facility] Critical [place] [address] Social History Tobacco Use Types Packs/Day [...] Office Visit Radiation Oncology Grace Raymond APRN [facility] RADIATION ONCDEBBIE [place], [place] [address] (Wo rk) 05/18/2022 Infusion Hematology and Oncology documented as of this encounter Procedures Procedure Name Priority Date/Time Associated Diagnosis Comme nts ROXANNE, LEGS, MULTIPLE Routine 01/17/2022 1:54 PM Intermittent Re sults for this LEVELS EDT claudication procedure are in PAD (peripheral the results artery disease) section. Critical lower limb ischemia documented in this encounter Results ROXANNE, legs, multiple levels (01/17/2022 1:54 PM EDT) Component Value Ref Test Analysis Performed At [facility] Range Method Time Signature VB Text Department: Vascular Surgery Lab VASCUBASE Report Patient: [id number] (ALONSO BURKS) CPT: 41922 Referring Physician: TOM MAHONEY ?? Phone: Indications: [...] disorder documented in this encounter Care Teams Electronic Plotting System Operator Relationship Specialty Start Date End Date Ursula Jacob PCP - General Family Medicine 03/16/21 [address] [place] [address] documented as of this encounter
--- OUTSIDE RECORDS SUMMARY | 2022-05-12 01:19 | XMS_ITS | Encounter Summary ---
:1950 Author Organization [facility] [place] [address] Care Team Providers Name Role Phone yTlor William Primary Care Provider Encounter Details Date Type Department Care Team Description 11/18/2020 TH Visit Radiation Oncology Demi Tijerina, Malign ant neoplasm of (TeleHealth) at [facility] [address] [place], [place] RADIATION ONCOL OGY [address] [place], [place] [phone] [id number] Social History Tobacco Use Types Packs/Day Years [...] documented as of this encounter Progress Notes Demi Tijerina, SHARRON - 11/18/2020 9:00 AM EST Images from the original note were not included. Telephone/TeleHealth Encounter Telephone encounter due to National Public [facility] Emergency. Patient verbally consented to conduct this clinical encounter by telephone. He/she acknowledge that insurance may be billed for the care provided similar to an in person visit. Patient is at the following location at the time of the phone call. Home: XXX Patient Identification: Reason for contact: Surveillance post treatment for prostate cancer Time since completion of XRT: 10 months Diagnosis High-Risk Prostate Cancer (Gl 4+5, PSA 13.5, cT2a) HPI: Rey Jean Baptiste is a 69 y.o. male diagnosed with a high-risk prostate cancer. ?? Presenting Symptoms / Duration: LUTS, elevated PSA and left sided prostate nodule ?? Prior consultations / recommendations: Dr Woodall - 07/25/19: ?? PSA History: 06/2018 - 10.7 06/2019 - 13.5 ?? Pathology Results / Location: 12 core TRUS biopsy (Dr Woodall, 07/04/19) Gl 4+5 x 5 (bilat) Gl 4+4 x 3 (bilat) Gl 4+3 x 1 (left) Gl 3+3 x 1 (left) ?? Pertinent Imaging Studies: TRUS (07/04/19) - asymmetric gland (R>L); 54 cc Bone scan (07/25/19) - no bone mets CT A/P (07/25/19) - thickened bladder wall, no enlarged lymph nodes ?? NEOADJUVANT / CONCURRENT THERAPY: LT-ADT (planned 36 months) Lupron #1: (22.5 mg) - 08/04/19 Lupron #2: (22.5 mg) - 11/10/19 Lupron #3: (22.5mg ) - 02/05/20 (planned later today) Lupron #4 (22.5 mg) - 05/28/20 lupron #5 (22.5 mg -08/27/20 INTENT OF THERAPY: Definitive (Curative) RADIATION TREATMENT DETAILS: Initial Treatment Site Pelvis, Entire SV and Prostate Prescribed Dose 45 Gy in 25 fractions Boost Treatment Site 1 Proximal SV and Prostate Prescribe Dose 68.4Gy in 38 fractions Boost Treatment Site 2 Prostate Prescribed Dose 79.2 Gy in 44 fractions Completion Date 01/05/20 Patient Active Problem List Diagnosis Code ??? Malignant neoplasm of prostate C61 ??? Primary malignant neoplasm of prostate with high risk of recurrence due to Ramon score of 8 to10 and PSA greater than 20 C61 Past Medical History: Diagnosis Date ??? Lactose intolerance ??? Prostate cancer Peripheral vascular disease.--moderate disease. Medications 11/18/20 0906 Medication Sig Taking? aspirin EC 81 mg Tablet, Delayed Release (E.C.) Take 81 mg by mouth daily. Yes atorvastatin (Lipitor) 40 mg Tablet Take 1 tablet by mouth daily. Yes ibuprofen (Advil;Motrin) 200 mg Tablet Take 600 mg by mouth every 6 hours as needed. For dysuria andurinary frequency Yes tamsulosin (FLOMAX) 0.4 mg Capsule 0.8 mg nightly. Yes cilostazoL (Pletal) 100 mg Tablet Take 1 tablet by mouth 2 times daily. Patient not taking: Reported on 11/18/2020 No Known Allergies Interim History: I reviewed patient allergies, medications, problem list, Previous medical history, Previous surgicalhistory, family history and social history. Change in history: Rey reports that he continues to have significant hot flashes at night from 3-5 times. He has some increase in muscle weakness since being on Lupron and has had increase in leg cramps. He was seen by cardiology in September and was found to have PVD. He was started on cilostazol 100 mg twice a day but this caused him severe diarrhea so he has stopped the medication. He did not feel the med reduced hisleg pain. He is to be seen by cardiology again in December. 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 He denies any mood changes related to hormone therapy. He has gained about 10 lbs mainly abdominal since the start of Lupron. He reports no distressing urinary flow issues. He was seen by Dr Woodall about a week ago and a bladder scan was done at that time and showed no residuals. He has no dysuria or hematuria. He has no bowel issues--no diarrhea at this time, no constipation. ROS: Constitutional: hot flashes at night --awakens 3-5 times a night and voids then. + muscle weakness.Work roving department supervisor. Does property managing. No mood changes. No breast tenderness. Resp: negative CV negative Neuro negative : satisfaction with voiding pattern- satisfied. Bladder scan done at urologist a week ago and showed no urinary retention Incontinence/leakage/number pads a day: none Hematuria: none Nocturia: 3-5 times a night Urgency: none Dysuria: none Difficulty with starting urine flow:none GI: no constipation, no diarrhea, no blood in stool, no abdominal pain, Late effect XRT/ADT: + fatigue, + muscle weakness,+ leg cramps. +Hot flashes Sexual: Not sexually active Musculoskeletal: no skeletal pain, Exercise/functional status: active at work-- Psych --mood generally positive Support system-spouse and family PE N/A Labs: PSA 06/2018 - 10.7 06/2019 - 13.5 12/2019 - 0.02 05/18/20 - <0.01 08/18/20 <0.01 11/08/20 < 0.01 Testosterone 12/2019 - 7.9 (lab nl >240) 05/18/20 - <7.0 08/18/20 8.8 11/08/20 9.3 CBC 08/18/20 WBC 7.37 H/H 13.7/43.1 PLts 205 Imaging: none Assessment/ Plan Recovery from radiotherapy/ tolerance to ADT: Recovered from RT. LUTS back to baseline. Tolerating ADT as anticipated. Continue as planned. Lupron next due in 12 weeks . We discussed the length of treatment again as well as the side effects. He does not feel that he will be able to continue for 3 years with this therapy. I discussed the rationale for the treatment and we would discuss itagain at his next visit. He is agreeable to continuing with treatment with his next Lupron to be done 11/19/2020. He was pleased that his PSA remains so low. He will re evaluate whether or not to continue with lupron at each visit. LUTS / dysuria: Rec continue flomax 0.4-0.8mg qhs, has not had any dysuria. This is resolved Leg cramps Patient has been evaluated by vascular surgery and has moderate PVD. He is to be seen by cardiology again in December 2020. He did not tolerate the side effects of Pletal so has stopped med. Hecontinues with aspirin and atorvastatin. Followup: He will return in 12 weeks with labs prior for his next lupron injection. He is comfortable with this plan. I provided care to Mr Jean Baptiste via telephone encounter and spent 30 minutes preparing for the virtualvisit, by reviewing previous care as documented in patient's EMR, in direct discussion with the patient over the phone and afterward coordinating and documenting in the medical record Mr Jean Baptiste had the opportunity to ask questions and I answered to best of my knowledge. He agreed to call radiation oncology in between visits with questions and concerns. documented in this encounter Plan of Treatment Upcoming Encounters Date Type Specialty Care Team Description 05/18/2022 Office Visit Radiation Oncology Grace Raymond APRN [facility] RADIATION ONCDEBBIE [place], [place] [address] (Wo rk) 05/18/2022 Infusion Hematology and Oncology documented as of this encounter Visit Diagnoses Diagnosis Malignant neoplasm of prostate documented in this encounter Care Teams Wellness Program Administrator Relationship Specialty Start Date End Date Tylor William PA PCP - General General Internal Medicine 01/13/20 documented as of this encounter
--- OUTSIDE RECORDS SUMMARY | 2022-05-12 01:19 | XMS_ITS | Encounter Summary ---
:1950 Author Organization [facility] [place] [address] Care Team Providers Name Role Phone Unavailable Primary Care Provider Unavailable Encounter Details Date Type Department Care Team Description 09/22/2019 Notes Only Radiation Oncology at Angelita Deleon [facility] OFFICE OF CARE [address] [place] [phone] Social History Tobacco Use Types Packs/Day Years [...] documented as of this encounter Progress Notes Angelita Deleon MSW - 09/22/2019 2:14 PM EST Follow up with pt, and daughter during rad onc clinic visit. Pt indicated he has not hear from re the status of his financial assitance application that was submitted by [employer] on his behalf about 4 weeks ago. Gave pt the contact number to Pt Advocate at to call and inquire status of his application. Pt agreeable to this plan and is able to make the call. Pt did not identify any additional needs at this time. documented in this encounter Plan of Treatment Upcoming Encounters Date Type Specialty Care Team Description 05/18/2022 Office Visit Radiation Oncology Grace Raymond, MANAGER NEONATAL [facility] RADIATION ONCDEBBIE [place], [place] [address] (Wo rk) 05/18/2022 Infusion Hematology and Oncology documented as of this encounter Visit Diagnoses Not on filedocumented in this encounter
--- OUTSIDE RECORDS SUMMARY | 2022-05-12 01:19 | XMS_ITS | Encounter Summary ---
:1950 [place] [address] Care Team Providers Name Role Phone Tylor William Primary Care Provider Reason for Visit Consultation (Routine) - Specialty Diagnoses / Procedures Referred By Contact Refer red To Contact Vascular Surgery Diagnoses Pain in leg, unspecified Polyneuropathy, unspecified Menapaconsuelo-Ursula [facility] Vascular Surg 3v [address] [place] [address] [place] [address] Phone: Referral ID Status Reason Start Date Expiration Date Visits V isits Requested Authorized [id number] Consult, Test 03/24/2020 03/24/2021 12 12 & Treat PCP Updated and/or Approved Encounter Details Date Type Department Care Team Description 04/13/2020 Tech Visit Vascular Lab at Michelle Kennedy, [place] [address] Social History Tobacco Use Types Packs/Day [...] Radiation Oncology Grace Raymond APRN [facility] RADIATION ONCDEBBIE [place], [place] [address] (Wo rk) 05/18/2022 Infusion Hematology and Oncology documented as of this encounter Procedures Procedure Name Priority Date/Time Associated Diagnosis Comme nts ROXANNE, LEGS, MULTIPLE Routine 04/13/2020 12:51 PM Pain in both l ower Results for this LEVELS EDT extremities procedure are i n the results section. documented in this encounter Results ROXANNE, legs, multiple levels (04/13/2020 12:51 PM EDT) Component Value Ref Test Analysis Performed At [facility] gist Range Method Time Signature VB Text Department: Vascular Surgery Lab VASCUBASE Report Patient: [id number] (ALONSO BURKS) CPT: 45928 ICD10: M79.604;M79.605 Referring Physician: JANA RICKS APRN ?? Phone: Indications: ??Bilateral claudication. Diabetes mellitus: no ICD10 Diagnosis Code: M79.604, M79.605 Findings: Right ?Pressure (mm Hg) ?? ROXANNE ??Waveform ? Brachial Artery ?137 ? Common Femoral Artery ?Triphasic ?? Popliteal Artery ? Monophasic ?? Dorsalis Pedis (Ankle) Arter y ?51 ?0.37 ??Monophasic ?? Posterior Tibial (Ankle) Art namrata ??66 ?0.48 ??Monophasic ?? Left ? Pressure (mm Hg) ?? ROXANNE ??Waveform ? Brachial Artery ?136 ? Common Femoral Artery ?Monophasic ?? Popliteal Artery ? Monophasic ?? Dorsalis Pedis (Ankle) Arter y ?58 ?0.42 ??Monophasic ?? Posterior Tibial (Ankle) Art namrata ??52 ?0.38 ??Monophasic ?? Interpretation: RIGHT: Moderately severe lower extremity arteria l occlusive disease. Findings consistent with fem-pop disease. LEFT: Moderately severe lower extremity arterial occlu sive disease. Findings consistent with iliac disease. Comparison: ??No previous study in our vascular lab da adria for comparison. Electronically Signed by: MARTIN MANLEY on 2020-04-14 07: 56:06 AM VB Text End of Report VASCUBASE Report Specimen (Source) Anatomical Collection Method Collection Time Re ceived Time Location / / Volume Laterality 04/13/2020 12:51 PM EDT Jana Ricks TOP CARRIER VASCULAR ORDERABLES Performing Organization Address City/State/ZIP Code Phon e Number VASCUBASE documented in this encounter Visit Diagnoses Diagnosis Pain in both lower extremities documented in this encounter Care Teams Care Transitions Manager Relationship Specialty Start Date End Date Tylor William PA PCP - General General Internal Medicine 4/21/20 6/22/2 documented as of this encounter
--- OUTSIDE RECORDS SUMMARY | 2022-05-12 01:19 | XMS_ITS | Encounter Summary ---
:1950 Author Organization [facility] Address [address] [place] [address] Care Team Providers Name Role Phone Haja Marshall MD Primary Care Provider Encounter Details Date Type Department Care Team Description 01/04/2020 Telephone Radiation Oncology a t [facility] Kwame Rodriguez [address] [place] [phone] Social History Tobacco Use Types [...] this encounter Miscellaneous Notes Telephone Encounter - Kwame Rodriguez - 01/04/2020 4:35 PM EDT Called Rey to inform him of the following: As a new precaution with COVID-19 we are calling all patients before they come in for their appointment to screen for any potential symptoms. 1. EXPOSURE: ???Have you been in contact with anyone suspected or confirmed to have COVID-19 in the past 14 days??? Yes/No 2. Do you have a fever, cough, or shortness of breath? Yes/No [if they say yes to symptoms but no to exposure OR yes to symptoms and yes to exposure include the following and route to triage] I am going to forward this information on to our triage nurse. Someone should be calling you about next steps in regards to your appointment. Another precaution we are taking is that we are not allowing visitors at this time. If needed, someone may bring you to your appointment but they will be asked to wait outside. If you develop symptoms of shortness of breath, cough, or fever prior to your appointment do not come in for your appointment. Please call the Cancer Center before coming in. documented in this encounter Plan of Treatment Upcoming Encounters Date Type Specialty Care Team Description 05/18/2022 Office Visit Radiation Oncology Grace Raymond, GRINDER AND PLATER [facility] RADIATION ONCDEBBIE [place], [place] [address] (Wo rk) 05/18/2022 Infusion Hematology and Oncology documented as of this encounter Visit Diagnoses Not on filedocumented in this encounter Care Teams Photo Technologist Relationship Specialty Start Date End Date Haja Marshall MD PCP - General Radiation Oncology 09/24/19 01/12/[address] [place] [address] [place] [address] documented as of this encounter
--- OUTSIDE RECORDS SUMMARY | 2022-05-12 01:19 | XMS_ITS | Encounter Summary ---
:1950 Author Organization [facility] [place] [address] Care Team Providers Name Role Phone Haja Marshall MD Primary Care Provider Encounter Details Date Type Department Care Team Description 11/20/2019 Office Visit Radiation Oncology at Haja Marshall M alignant neoplasm of [facility] prostate [address] [place], [place] RADIATION ONCOL OGY [address] [place], [place] [phone] (Wo rk) Social History Tobacco Use Types [...] Sign Reading Time Taken Comments Blood Pressure 155/80 11/20/2019 3:00 PM EST Pulse 90 11/20/2019 3:00 PM EST Temperature 36.3 ??C (97.3 ??F) 11/20/2019 3:00 PM EST Respiratory Rate - - Oxygen Saturation 99% 11/20/2019 3:00 PM EST Inhaled Oxygen Concentration - - Weight 73.9 kg (163 lb) 11/20/2019 3:00 PM EST Height - - Body Mass Index - - documented in this encounter Patient Instructions Patient InstructionsClara Hameed RN - 11/20/2019 4:00 PM EST For pain : Ibuprofen 200 mg, take 3 tablets with evening meal. Also try prescription sent to your pharmacy for pyridium. There is also an over the counter equivalent Azo. If that is less expensive, take that as directed on package. Remember this will make your urine a bight orange-red color and can stain anything it comes in contact with. Diarrhea management for patients receiving pelvic radiation: Follow a low roughage, low fiber diet. Drink plenty of water;8-10 glasses/day Take 1 imodium tablet after each loose watery stool. Do not take more than 8 tabs per day. Notify physician if diarrhea is not relieved after 8 tabs. Call: [phone] [facility] ([facility]) weekend/holidays: call [facility] ask for the operations officer Radiation Oncologist documented in this encounter Progress Notes Haja Marshall MD - 11/20/2019 4:00 PM EST Images from the original note were not included. RADIATION ONCOLOGY - Weekly On Treatment Visit Note 11/20/19 Haja Marshall MD, MS Radiation Oncology [facility] [phone] (paging semiconductor wafers etch operator) Pager #[phone] PATIENT IDENTIFICATION Name Rey Jean Baptiste Date of 1950 PCP Haja Marshall MD Referring MD (if different) Dr. Woodall Diagnosis High-Risk Prostate Cancer (Gl 4+5, PSA 13.5, cT2a) NEOADJUVANT / CONCURRENT THERAPY: LT-ADT (planned 36 months) Lupron #1: (22.5 mg) - 08/04/19 Lupron #2: (22.5 mg) - 11/10/19 INTENT OF THERAPY: Definitive (Curative) RADIATION TREATMENT DETAILS: Initial Treatment Site Pelvis, Entire SV and Prostate Prescribed Dose 45 Gy in 25 fractions Boost Treatment Site 1 Proximal SV and Prostate Prescribe Dose 68.4Gy in 38 fractions Boost Treatment Site 2 Prostate Prescribed Dose 79.2 Gy in 44 fractions Current Dose: 21.6 Gy in 12 fractions INTERVAL HISTORY Subjective: General - Overall feels fair this week. GI - No diarrhea. - Frequent urination shane at night, going about 45mins between urination. Also significant dysuriarated 5/10 at tip of penis, which is new in the past 1-2 days. Has not needed to cath for over 1 week. Taking flomax 0.8mg qhs along with casodex. Baseline IPSS history is listed below. Prostate Today's Scores 08/04/2019 09/22/2019 Sexual Health Inventory for Men 17 (Mild ED) 23 International Prostate Symptom Score 16 (Moderate LUTS) 13 (Moderate LUTS) Pain: Pain score today is 0/10. MEDICATIONS Medications 11/20/19 1545 Medication Sig Taking? phenazopyridine (Pyridium) 200 mg Tablet Take 1 tablet by mouth 4 times daily as needed for Pain. tamsulosin (FLOMAX) 0.4 mg Capsule 0.8 mg nightly. bicalutamide (CASODEX) 50 mg Tablet Take 1 tablet by mouth daily. IMAGING I have personally reviewed this patient's interval portal imaging to confirm accurate positioning and alignment which matches the patient's original approved treatment planning images. EXAM: BP 155/80 Pulse 90 Temp 36.3 ??C (97.3 ??F) Wt 73.9 kg (163 lb) SpO2 99% Constitutional: he appears well-developed and well-nourished. No distress. Performance Status: KPS Score ECOG Grade Definition X 90-100 0 Fully active, able to carry [...] selfcare; totally confined to bed or chair IMPRESSION/PLAN Tolerance to radiotherapy/ADT: Tolerating as anticipated. Continue as planned. Lupron next due week of 02/01/20. LUTS / dysuria: Rec continue flomax 0.8mg qhs. Add ibuprofen 600mg at dinnertime and start pyriduim or Azo. Followup: Return to clinic next week for on treatment check. documented in this encounter Plan of Treatment Upcoming Encounters Date Type Specialty Care Team Description 05/18/2022 Office Visit Radiation Oncology Grace Raymond, FIRE L[facility]NT [facility] RADIATION ONCDEBBIE [place], [place] [address] (Wo rk) 05/18/2022 Infusion Hematology and Oncology documented as of this encounter Visit Diagnoses Diagnosis Malignant neoplasm of prostate documented in this encounter Care Teams Guest Service Manager Relationship Specialty Start Date End Date Haja Marshall MD PCP - General Radiation Oncology 09/24/19 01/12/[address] [place] [address] [place] [address] documented as of this encounter
--- OUTSIDE RECORDS SUMMARY | 2022-05-12 01:19 | XMS_ITS | Encounter Summary ---
:1950 Author Organization [facility] [place] [address] Care Team Providers Name Role Phone Ursula Jacob Primary Care Provider Reason for Visit Reason Comments Follow-up Peripheral Arterial Disease Encounter Details Date Type Department Care Team Description 03/22/2021 Office Visit Vascular Surgery at Luis [facility]ard Cr itical lower limb [facility] [place] [facility] [address] [place] CARDIOLOGY DEPT [address] [place] [address] [phone] Social History Tobacco Use Types Packs/Day Years [...] Sign Reading Time Taken Comments Blood Pressure 126/66 03/22/2021 11:23 AM left arm, ri ght arm: EDT 128/64 Pulse 73 03/22/2021 11:23 AM EDT Temperature - - Respiratory Rate - - Oxygen Saturation 93% 03/22/2021 11:23 AM EDT Inhaled Oxygen - - Concentration Weight 77.1 kg (170 lb) 03/22/2021 11:23 AM EDT Height 172.7 cm (5' 8) 03/22/2021 11:23 AM EDT Body Mass Index 25.85 03/22/2021 11:23 AM EDT documented in this encounter Progress Notes Luis Barnard MD - 03/22/2021 11:30 AM EDT Images from the original note were not included. [facility] [place] [address] [address] CARDIOVASCULAR MEDICINE OUTPATIENT CONSULTATION Rey Jean Baptiste [id number] 03/22/2021 REFERRING PROVIDER: Tylor William CHIEF COMPLAINT: Chief Complaint Patient presents with ??? Follow-up ??? Peripheral Arterial Disease PROBLEM LIST Patient Active Problem List Diagnosis ??? Primary malignant neoplasm of prostate with high risk of recurrence due to [place] score of 8 to10 and PSA greater than 20 ??? Malignant neoplasm of prostate HISTORY OF PRESENT ILLNESS: Mr. Jean Baptiste is a very pleasant 71-year-old gentleman with a history of stage IIIc prostate cancer status post pelvic radiation and now on neoadjuvant Lupron therapy, bilateral peripheral artery diseasewho presents for follow-up. I last saw him on October 05, 2020. He presents today for follow-up. HisABIs today showed right ROXANNE 0.51 toe pressure 0.29, and left ROXANNE of 0.341 with occluded vertebral artery and toe brachial index of 0.14. There is deterioration on the left side. He continues to have left lower extremity claudication. Additionally, he reports burning sensation in his foot at rest, which improves with dependency. With ambulation, he has no chest pain or shortness of breath. He denies PND, orthopnea, lower extremity edema, presyncope or syncope. He did not tolerate Pletal due to significant diarrhea and no improvement in symptoms. CTA-run off showed occluded internal iliac artery and SFA, as well as tibio- peroneal trunk. REVIEW OF SYSTEMS: All others negative except as stated in the HPI. PAST MEDICAL HISTORY: Past Medical History: Diagnosis Date ??? Lactose intolerance ??? Prostate cancer SOCIAL HISTORY: Social History Tobacco Use ??? Smoking status: Never Smoker ??? Smokeless tobacco: Never Used Substance Use Topics ??? Alcohol use: Yes Comment: occasional beer MEDICATIONS: Current Outpatient Medications Medication Sig Dispense Refill ??? atorvastatin (Lipitor) 40 mg Tablet Take 1 tablet by mouth daily. 90 tablet 3 ??? ibuprofen (Advil;Motrin) 200 mg Tablet Take 600 mg by mouth every 6 hours as needed. For dysuriaand urinary frequency ??? tamsulosin (FLOMAX) 0.4 mg Capsule 0.8 mg nightly. 11 No current facility-administered medications for this visit. ALLERGIES: Patient has no known allergies. PHYSICAL EXAMINATION: Vital Signs: BP 126/66 (Patient Position: Sitting, BP Cuff Sizes: Adult (25-34 cm)) Comment: left arm, right arm: 128/64 Pulse 73 Ht 172.7 cm (5' 8) Wt 77.1 kg (170 lb) SpO2 93% BMI 25.85 kg/m?? Exam Details: General: Pleasant 71 y.o. man/female in no acute distress Eyes: No scleral icterus ENT: Moist mucous membranes Lymph: No cervical or supraclavicular lymphadenopathy Heart: Regular rate and rhythm, normal S1/S2, no murmurs/rubs/gallops appreciated, PMI non-displaced Lungs: Clear to ascultation bilaterally Abdomen: Soft, non-tender, non-distended, normoactive bowel sounds noted. No hepatosplenomegaly Extremities: No peripheral edema noted. No ulcerations noted. Vessels: No carotid or subclavian bruits appreciated. Arterial exam (R/L): Femoral 2/2, popliteal 2/2, DP 2/2, PT 2/2, radial 2/2. Neuro: No gross abnormalities noted Psych: Alert and oriented 3 x, normal affect DATA PERSONALLY REVIEWED: ROXANNE 04/13/2020: ?? Right ?Pressure (mm Hg) ?? ROXANNE ??Waveform ? Brachial Artery ?137 ? Common Femoral Artery ?Triphasic ?? Popliteal Artery ? Monophasic ?? Dorsalis Pedis (Ankle) Artery ?51 ?0.37 ??Monophasic ?? Posterior Tibial (Ankle) Artery ??66 ?0.48 ??Monophasic ? Left ? Pressure (mm Hg) ?? ROXANNE ??Waveform ? Brachial Artery ?136 ? Common Femoral Artery ?Monophasic ?? Popliteal Artery ?Monophasic ?? Dorsalis Pedis (Ankle) Artery ?58 ?0.42 ??Monophasic ?? Posterior Tibial (Ankle) Artery ??52 ?0.38 ??Monophasic ? Interpretation: RIGHT: Moderately severe lower extremity arterial occlusive disease. Findings consistent with fem-pop disease. LEFT: Moderately severe lower extremity arterial occlusive disease. Findings consistent with iliac disease. ROXANNE 03/22/2021: Right ?Pressure (mm Hg) ?? ROXANNE ??Waveform ?TBI ?? Brachial Artery ?140 ? Dorsalis Pedis (Ankle) Artery ?59 ?0.42 ??Monophasic ? Posterior Tibial (Ankle) Artery ??72 ?0.51 ??[place]ague-Biphasic ? Great Toe ?40 ? 0.29 ? Left ? Pressure (mm Hg) ?? ROXANNE ??Waveform ? TBI ?? Brachial Artery ?140 ? Dorsalis Pedis (Ankle) Artery ?47 ?0.34 ??Monophasic ? Posterior Tibial (Ankle) Artery ?Absent ? Great Toe ?19 ?0.14 ? CTA aorta run-off 03/22/2021 Interpretation: RIGHT: Moderate lower extremity arterial occlusive disease. Toe-brachial index substantially lower than ankle-brachial index indicates presence of moderately severe arterial occlusive disease in the foot. No significant change compared to previous exam; however, ROXANNE were previously in the moderately severe category. LEFT: Severe lower extremity arterial occlusive disease. No significant change compared to previous exam; however, ROXANNE were previously in the moderately severe category. Posterior tibial artery appears occluded by limited duplex at the ankle. This is a new finding from the previous exam. VASCULAR FINDINGS Abdominal aorta: Mild ectasia in the infrarenal abdominal aorta Celiac: Critical stenosis severe stenosis at origin. Then diffusely aneurysmal, measuring up to 9 mm. SMA: No stenosis. Right renal artery: 2 patent RIGHT renal arteries Left renal artery: 3 patent LEFT renal arteries MARLIN: No stenosis. ?? RIGHT LOWER EXTREMITY Common iliac artery: Proximally aneurysmal, measuring 17 mm. Widely patent External iliac artery: Widely patent. Internal iliac artery: Proximal severe to critical stenosis, then patent Common femoral artery: Widely patent. Superficial femoral artery: Approximate 6 cm segmental occlusion distally. Proximal to this, multifocal moderate and severe stenoses. Reconstituted by collateral vessels at the level of the adductor canal Profundus femoral artery: Widely patent. Popliteal artery: Widely patent Anterior tibial artery: Widely patent. Tibio-peroneal trunk: Occluded Posterior tibial artery: Occluded proximally. Then reconstituted by collateral vessels and patent to the foot Peroneal artery: Occluded proximally, then reconstituted faintly by collateral vessels and patent to the ankle Dorsalis pedis: Widely patent. Plantar arteries: Widely patent. ?? LEFT LOWER EXTREMITY Common iliac artery: Aneurysmal, measuring up to 18 mm with severe stenosis proximally External iliac artery: Widely patent. Internal iliac artery: Occluded proximally, then reconstituted by collateral vessels Common femoral artery: Widely patent. Superficial femoral artery: Occluded. Profundus femoral artery: Widely patent. Popliteal artery: Patent after reconstitution by collateral vessels Anterior tibial artery: Widely patent and main vessel supplying flow to the foot. Tibio-peroneal trunk: Occluded Posterior tibial artery: Occluded Peroneal artery: Faintly reconstituted proximally and faintly patent to the ankle Dorsalis pedis: Widely patent. Plantar arteries: Occluded/nonopacified ASSESSMENT AND PLAN: #1 L>R PAD Mr. Jean Baptiste is a very pleasant 71 year old gentleman with history of prostate cancer whp presents for follow-up of bilateral PAD. He continues to have significant LLE > RLE claudication. He does have some left foot numbness as well, improved with dependency, concerning for CLTI. Given worsening ABIs, I have discussed with my vascular surgery colleague, Dr. Mahoney, who will plan for LLE angiogram. It appears is not on aspirin and we have asked him to start aspirin 81 mg daily. I am happy to see him in the future if the need arises. Thank you for allowing me to participate in the care of your patient. Please do not hesitate to contact me with any questions or concerns. Luis Barnard MD, MPH, VI, FAC, [facility] Cardiovascular Boiler Water [place]ester[place] [address] documented in this encounter Plan of Treatment Upcoming Encounters Date Type Specialty Care Team Description 05/18/2022 Office Visit Radiation Oncology Grace Raymond, ASSIGNMENT OFFICER [facility] RADIATION ONCDEBBIE [place], [place] [address] (Wo rk) 05/18/2022 Infusion Hematology and Oncology documented as of this encounter Visit Diagnoses Diagnosis Critical lower limb ischemia Unspecified circulatory system disorder documented in this encounter Care Teams Anthropology Lecturer Relationship Specialty Start Date End Date Ursula Jacob PCP - General Family Medicine 03/16/21 [address] [place] [address] documented as of this encounter
--- OUTSIDE RECORDS SUMMARY | 2022-05-12 01:19 | XMS_ITS | Encounter Summary ---
:1950 Author Organization [facility] [address] Care Team Providers Name Role Phone Tylor William Primary Care Provider Reason for Visit Reason Comments Injections Lupron Treatment/Therapy Plan Authorization (Routine) - Closed Specialty Diagnoses / Procedures Referred By Contact Refer red To Contact Diagnoses Primary malignant neoplasm of prostate with high risk of recurrence due to [place] score of 8 to 10 and PSA greater than [address] [facility] Rad [facility]c Office [address] [facility] [phone] Fax: Referral ID Status Reason Start Date Expiration Date Visits Requ ested Visits Authorized [id number] Closed 11/17/2020 11/17/2021 99 99 Encounter Details Date Type Department Care Team Description 11/19/2020 Infusion Hematology Oncology [place] malignant neoplasm [facility] of prostate with high risk [address] [facility] of recurrence due to [place], [place] [phone] score of 8 to 10 and PSA [phone] greater than 20 Social History Tobacco Use [...] Sign Reading Time Taken Comments Blood Pressure 142/65 11/19/2020 9:06 AM EST Pulse 72 11/19/2020 9:06 AM EST Temperature 35.9 ??C (96.7 ??F) 11/19/2020 9:06 AM EST Respiratory Rate 20 11/19/2020 9:06 AM EST Oxygen Saturation - - Inhaled Oxygen Concentration - - Weight - - Height - - Body Mass Index - - documented in this encounter Progress Notes Carol Anguiano RN - 11/19/2020 9:00 AM EST Infusion Note Diagnosis:Prostate Cancer Treatment: Lupron Injection Lupron (Eligard) 22.5mg injected in right gluteal site. Patient instructed on side effects of Lupron. Patient states understanding of teaching, Patient aware to call clinic with any questions or concerns. Plan: Return to clinic as scheduled. documented in this encounter Plan of Treatment Upcoming Encounters Date Type Specialty Care Team Description 05/18/2022 Office Visit Radiation Oncology Grace Raymond, CORRECTIONAL LIEUTENANT [facility] RADIATION ONCDEBBIE [place], [place] [address] (Wo rk) 05/18/2022 Infusion Hematology [...] Dose Rate Site leuprolide (Lupron Dep[place]) Given 11/19/2020 9:18 AM 22.5 mg Right Gluteal injection 22.5 mg EST 22.5 mg, Intramuscular, ONCE, 1 dose, On Sun11/19/20 at 0930, Routine documented in this encounter Care Teams Repossession Agent Relationship Specialty Start Date End Date Tylor William PA PCP - General General Internal Medicine 01/13/20 documented as of this encounter
--- OUTSIDE RECORDS SUMMARY | 2022-05-12 01:19 | XMS_ITS | Encounter Summary ---
:1950 Author Organization [facility] [place] [address] Care Team Providers Name Role Phone Haja Marshall MD Primary Care Provider Encounter Details Date Type Department Care Team Description 10/15/2019 Procedure visit Radiation Oncology Haja Marshall M alignant neoplasm at [facility] MD of prostate [address] [place], [place] RADIATION ONCOL OGY [address] [place], [place] [phone] Social History Tobacco Use Types Packs/Day Years [...] Sign Reading Time Taken Comments Blood Pressure 131/75 10/15/2019 9:53 AM EST Pulse 78 10/15/2019 9:53 AM EST Temperature 36.7 ??C (98 ??F) 10/15/2019 8:00 AM EST Respiratory Rate 18 10/15/2019 9:53 AM EST Oxygen Saturation 100% 10/15/2019 9:53 AM EST Inhaled Oxygen Concentration - - Weight - - Height - - Body Mass Index - - documented in this encounter Patient Instructions Patient InstructionsClara Hameed RN - 10/15/2019 8:30 AM EST After Your Gold Coil Implantation Procedure: ?? You may resume normal activity. ?? You may resume intercourse in one week. ?? You may take extra-strength Tylenol for any discomfort. Avoid NSAID's such as ibuprofen and aspirin for 48 hours after procedure as these medications could cause bleeding. ?? Take your dexamethasone as directed. This medication helps to control swelling. ?? Resume your :[ Ibuprofen or aspirin ] after 48 hours. ?? Call us if you notice difficulty in urination ,any unusual swelling, pain, bleeding or if you have any other concerns. ?? Take dexamethasone as directed. 1 pill twice a day for 3 days, then 1 pill once a day for 3 days. Future Appointments: ? [place] [facility] [place] You will receive separate instructions specifically from [facility] concerning your exactarrival time and what you need to do to prepare for this. Date: 10/24 around 12:00 ? Your planning session (simulation) will be done at [facility] the same day of your MRI at the RadiationOncology Department section 2K [Date: 10/24/19 ] [Time:arrive at 1:30 ] For proper visualization of prostate, it is required that you have a moderately full bladder. ?? This will require you to arrive 30 minutes before scheduled appointment ( arrive at 1:30 ) and drink 2 glasses of water upon arrival. There are no restrictions with eating. How to reach us: [phone] After Hours/Weekends- Please ask for the Radiation Oncologist to be paged documented in this encounter Progress Notes Clara Hameed RN - 10/15/2019 8:30 AM EST Radiation Oncology Procedure Nursing Note Procedure: Prostate fiducial / Space Oar implant by Dr Haja Marshall Time of patient arrival to clinic: 0800 See flowsheet for all vital signs and medication list updated info. Pre procedure questions: [ yes ] If Applicable: He confirms taking lorazepam 1mg po at (time): 07:05 He comes to clinic accompanied by a otr flatbed driver. [ yes ] if Applicable: He confirms holding blood thinner as directed. [ yes] He confirms taking Levaquin( antibiotic) this morning at 07:05 [yes ] He administered fleets enema as directed; last night and this AM, with good results. Patient states all his questions are answered and he is ready to proceed. Procedure Time out/start time: See Time out flow sheet for details. Assessment:Patient tolerated procedure well with no complaint of pain. Time procedure ended:926 After procedure,he was assisted to stretcher and transported to stretcher/emergency equipment bay for further monitoring. Time: 949 assisted to recliner. He denied lightheadedness. Vitals stable. After sitting in recliner for approximately 30 mins he dressed self. Gait steady. >> See AVS for printed instructions. involved with instructions. [ yes ]Take dexamethasone (steroid)as previously instructed (2mg twice a day for 3 days and once a day for 3 days). [ yes ]He may take Tylenol as needed for mild discomfort. He has the [facility] phone number and verbalized understanding to ask for the magnetic resonance imaging coordinator radiation oncologist if he needs to after clinic hours. [ agrees to drive ] If applicable: He was reminded to not drive home due to Lorazepam. Time of discharge: 10:23 vital signs stable,and gait steady. Haja Marshall MD - 10/15/2019 8:30 AM EST Identification and Indications: Rey Jean Baptiste is a 69 y.o. gentleman with high-risk prostate cancer who presents today for the procedures listed below: Procedures and Rationale: 1. Gold coil fiducial marker placement in prostate for daily image guided localization. 2. SpaceOAR hydrogel injection between rectal wall and prostate gland to reduce rectal irradiation during radiation therapy. SpaceOAR is an absorbable polyethylene glycol (PEG) hydrogel (SpaceOAR) thatwas placed into perirectal fat space, thereby pushing the rectum away from the prostate. Physician(s): Haja Marshall MD, MS Anesthesia: Local lidocaine (2%) Description of Procedure: Rey Jean Baptiste was placed in the lithotomy position with EMLA cream applied to the perineal skin. After a time-our was performed, a transrectal ultrasound probe was then placed within the rectum and stabilized using the placement positioning system. The perineum was prepped and draped. The SpaceOAR system was then prepared as per state editor's recommendations, using sterile technique. Lidocaine was then used to anesthetize SQ tissues and a needle was placed trans- perineally into the right lobe of the prostate under ultrasound guidance with the graticule serving for stabilization andposition verification. The ultrasound was used to monitor the advancement of the needle, and lidocaine was locally applied as the needle was advanced towards the apex of the prostate. Once it was properly positioned, two 5mm gold coils (Stereomood) were separately placed within the right lobe, and the needle was removed. This procedure was repeated within the left prostate. Prior to SpaceOARneedle insertion, an axial measurement of the space between the prostate (mid gland) and rectum was noted. With the subject maintained in the dorsal lithotomy position, the transrectalultrasound (TRUS) probe was positioned to enable visual guidance of the needle into the space between the prostate and the rectum. Under transrectal ultrasound guidance, the 15 cm 18G needle was inserted through the rectourethralismuscle and the needle tip advanced into the perirectal fat inferior to the prostate all by using a transperineal approach and with side- fire transrectal ultrasound guidance. The needle position was confirmed in both sagittal and axial powers. Saline was used to dissect the space between the Denonvilliers??? fascia and anterior rectal wall (???hydrodissection?? ). A space was created with hydrodissection. With the needle tip at mid gland, the axial field was viewed to confirm the needle was not in the rectal wall (movement of the needle tip without corresponding movement of the rectal wall will confirm perirectal placement). While maintaining the desired position, aspiration was done to ensure that the needle was not in vascular space. The assembled SpaceOAR delivery system was then attached to the 18G needle. Under ultrasound guidance (sagittal plane), a smooth, continuous injection technique was used to dispense the SpaceOAR hydrogel into the space between the prostate and rectum (Denonvilliers??? fascia and the anterior rectal wall). The entire syringe contents (10 mL total) were injected without stopping. Optimal visualization of the needle during hydrogel administration was maintained at all times. An axial measurement of the space between the prostate (mid gland) and rectum immediately post-SpaceOAR injection was noted. No suspected penetration or compromise of the rectal wall occurred. Complications: none Estimated Blood Loss: minimal Disposition: Rey Jean Baptiste tolerated the treatment well. He will return shortly for MRI imaging and for CT-based simulation and treatment planning, with radiation therapy to proceed thereafter. documented in this encounter Plan of Treatment Upcoming Encounters Date Type Specialty Care Team Description 05/18/2022 Office Visit Radiation Oncology Grace Raymond, TABLET MACHINE OPERATOR [facility] [place], [place] [address] (Wo rk) 05/18/2022 Infusion Hematology and Oncology documented as of this encounter Visit Diagnoses Diagnosis Malignant neoplasm of prostate documented in this encounter Care Teams Automatic Presser Relationship Specialty Start Date End Date Haja Marshall MD PCP - General Radiation Oncology 09/24/19 01/12/[address] [place] [address] [place] [address] documented as of this encounter
--- OUTSIDE RECORDS SUMMARY | 2022-05-12 01:19 | XMS_ITS | Encounter Summary ---
:1950 Author Organization [facility] [place] [address] Care Team Providers Name Role Phone Tylor William Primary Care Provider Encounter Details Date Type Department Care Team Description 08/27/2020 Orders Only Radiation Oncology at [facility] malignant [facility] CONTINUITY READER neoplasm of prostate [address] [place] [address] with high risk of [place], [place] recurrence due to [address] RADIATION ONCOLOGY Ramon score of 8 to [phone] [place], [place] [address] 10 and PSA greater [phone] than 20 (Work) Social History Tobacco Use Types Packs/Day Years [...] 05/18/2022 Office Visit Radiation Oncology Grace Raymond CONTINUITY READER [facility] RADIATION ONCDEBBIE [place], [place] [address] (Wo rk) 05/18/2022 Infusion Hematology and Oncology documented as of this encounter Visit Diagnoses Diagnosis Primary malignant neoplasm of prostate w ith high risk of recurrence due to Ramon score of 8 to 10 and PSA greater than 20 documented in this encounter Care Teams Controls Designer Relationship Specialty Start Date End Date Tylor William PA PCP - General General Internal Medicine 01/13/20 documented as of this encounter
--- OUTSIDE RECORDS SUMMARY | 2022-05-12 01:19 | XMS_ITS | Encounter Summary ---
:1950 Author Organization [facility] [place] [address] Care Team Providers Name Role Phone Tylor William Primary Care Provider Encounter Details Date Type Department Care Team Description 02/05/2020 Office Visit Radiation Oncology at Haja Marshall M alignant neoplasm of [facility] prostate [address] [place], [place] RADIATION ONCOL OGY [address] [place], [place] [phone] (Wo rk) Social History Tobacco Use Types [...] Sign Reading Time Taken Comments Blood Pressure 101/78 02/05/2020 11:00 AM EDT Pulse 63 02/05/2020 11:00 AM EDT Temperature 36.7 ??C (98 ??F) 02/05/2020 11:00 AM EDT Respiratory Rate 16 02/05/2020 11:00 AM EDT Oxygen Saturation 100% 02/05/2020 11:00 AM EDT Inhaled Oxygen Concentration - - Weight 74.2 kg (163 lb 9.6 oz) 02/05/2020 11:00 AM EDT Height - - Body Mass Index - - documented in this encounter Progress Notes Haja Marshall MD - 02/05/2020 11:00 AM EDT Images from the original note were not included. RADIATION ONCOLOGY - End of Treatment Visit Note 02/05/20 Haja Marshall MD, MS Radiation Oncology [facility] [phone] (paging glass blowing lathe operator) Pager #[phone] PATIENT IDENTIFICATION Name Rey Jean Baptiste Date of 1950 PCP PEDRO Peralta Referring MD (if different) Dr. Woodall Diagnosis High-Risk Prostate Cancer (Gl 4+5, PSA 13.5, cT2a) NEOADJUVANT / CONCURRENT THERAPY: LT-ADT (planned 36 months) Lupron #1: (22.5 mg) - 08/04/19 Lupron #2: (22.5 mg) - 11/10/19 Lupron #3: (22.5mg ) - 02/05/20 (planned later today) INTENT OF THERAPY: Definitive (Curative) RADIATION TREATMENT DETAILS: Initial Treatment Site Pelvis, Entire SV and Prostate Prescribed Dose 45 Gy in 25 fractions Boost Treatment Site 1 Proximal SV and Prostate Prescribe Dose 68.4Gy in 38 fractions Boost Treatment Site 2 Prostate Prescribed Dose 79.2 Gy in 44 fractions Completion Date 01/05/20 INTERVAL HISTORY Subjective: General - Overall continues to feel well. GI - No diarrhea or cramping. - Nocturia 4x/nt which is essentially unchanged from his pre-RT baseline. He had some transient dysuria for the 2 weeks post RT but that has resolved. Taking flomax 0.8mg qhs along with casodex. Baseline IPSS history is listed below. Prostate Today's Scores 08/04/2019 09/22/2019 02/05/2020 Sexual Health Inventory for Men 17 (Mild ED) 23 21 (Mild ED) International Prostate Symptom Score 16 (Moderate LUTS) 13 (Moderate LUTS) 13 (Moderate LUTS) Pain: Pain score today is 0/10. MEDICATIONS Medications 02/05/20 1141 Medication Sig Taking? tamsulosin (FLOMAX) 0.4 mg Capsule 0.8 mg nightly. Yes bicalutamide (CASODEX) 50 mg Tablet Take 1 tablet by mouth daily. Yes ibuprofen (Advil;Motrin) 200 mg Tablet Take 600 mg by mouth every 6 hours as needed. For dysuria andurinary frequency IMAGING / LABS PSA 06/2018 - 10.7 06/2019 - 13.5 12/2019 - 0.02 T 12/2019 - 7.9 (lab nl >240) EXAM: BP 101/78 Pulse 63 Temp 36.7 ??C (98 ??F) (Temporal) Resp 16 Wt 74.2 kg (163 lb 9.6 oz) SpO2 100% Constitutional: he appears well-developed and well-nourished. No [...] totally confined to bed or chair IMPRESSION/PLAN Recovery from radiotherapy/ tolerance to ADT: Recovered from RT. LUTS back to baseline. Tolerating ADT as anticipated. Continue as planned. Lupron next due Jun 2020. Casodex course now complete - he knows to stop this medication. LUTS / dysuria: Rec continue flomax 0.4-0.8mg qhs, aleve prn for dysuria. Followup: PSA / RV in April per above. documented in this encounter Plan of Treatment Upcoming Encounters Date Type Specialty Care Team Description 05/18/2022 Office Visit Radiation Oncology Grace Raymond APRN [facility] RADIATION ONCDEBBIE [facility], [place] [address] (Wo rk) 05/18/2022 Infusion Hematology and Oncology documented as of this encounter Visit Diagnoses Diagnosis Malignant neoplasm of prostate documented in this encounter Care Teams Comptometrist Relationship Specialty Start Date End Date Tylor William PA PCP - General General Internal Medicine 01/13/20 documented as of this encounter
--- OUTSIDE RECORDS SUMMARY | 2022-05-12 01:19 | XMS_ITS | Encounter Summary ---
:1950 Author Organization [facility] [place] [address] Care Team Providers Name Role Phone Tylor William Primary Care Provider Reason for Visit Reason Comments Prostate Cancer Encounter Details Date Type Department Care Team Description 02/17/2021 TH Visit Radiation Oncology Demi Tijerina, Malign ant neoplasm of (TeleHealth) at [facility] prostate [address] [place], [place] RADIATION ONCOL OGY [address] [place], [place] [phone] Social History Tobacco Use Types Packs/Day Years [...] encounter Progress Notes Demi Tijerina, SHARRON - 02/17/2021 4:00 PM EDT Images from the original note were not included. Telephone/TeleHealth Encounter Telephone encounter due to National Public [facility] Emergency. Patient verbally consented to conduct this clinical encounter by telephone. He acknowledges that insurance may be billed for the care provided similar to an in person visit. Patient is at the following location at the time of the phone call. Home: XXX Patient Identification: Reason for contact: Surveillance post treatment for prostate cancer Time since completion of XRT: 14 months Diagnosis High-Risk Prostate Cancer (Gl 4+5, [...] -08/27/20 Lupron #6 ( 22.5 mg) --02/18/2021 INTENT OF THERAPY: Definitive (Curative) RADIATION TREATMENT [...] Prostate cancer Peripheral vascular disease.--moderate disease. Medications 5/27/21 1928 Medication Sig Taking? atorvastatin (Lipitor) 40 mg Tablet Take 1 tablet by mouth daily. Yes tamsulosin (FLOMAX) 0.4 mg Capsule 0.8 mg nightly. Yes ibuprofen (Advil;Motrin) 200 mg Tablet Take 600 mg by mouth every 6 hours as needed. For dysuria andurinary frequency No Known Allergies Interim History: I reviewed patient allergies, medications, problem list, Previous medical history, Previous surgicalhistory, family history and social history. Change in history: Continues with night time hot flashes, + cramps in legs if walk a long distance--strength not as good--arms muscles have shrunk --able to do what he wants to do. Gets tired more easily -- No chest pain, no chest tightness, no lower extremity edema, + joint stiffness.do Le was seen by cardiology in September and was found to have PVD. He was started on cilostazol 100 mg twice a day but this caused him severe diarrhea so he stopped the medication. He did followup with his opal polisher and he has appointment in February. 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 He denies any mood changes related to hormone therapy. He has gained about 10 lbs mainly abdominal since the start of Lupron. He reports no distressing urinary flow issues.. He has no dysuria or hematuria. He has no bowel issues--no diarrhea at this time, no constipation. ROS: Constitutional: hot flashes at night --awakens 3-5 times a night and voids then. 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 No mood changes. No breast tenderness. Resp: negative CV negative Neuro negative : satisfaction with voiding pattern- satisfied. Incontinence/leakage/number pads a day: none Hematuria: none Nocturia: 2-4 times a night Urgency: none Dysuria: none [...] - <0.01 08/18/20 <0.01 11/08/20 < 0.01 02/10/2021 < 0.01 Testosterone 12/2019 - 7.9 (lab nl >240) 05/18/20 - <7.0 08/18/20 8.8 11/08/20 9.3 02/10/2021--7.9 Imaging: none Assessment/ Plan Recovery from radiotherapy/ tolerance to ADT: Recovered from RT. LUTS back to baseline. Tolerating ADT as anticipated. Continue as planned. Lupron next due tomorrow and then again in 12 weeks . We discussed the length of treatment again as well as the side effects. . I discussed the rationale for the treatment and we would discuss it again at his next visit. He is agreeable to continuingwith treatment with his next Lupron to be done 02/18/2021. He was pleased that his PSA remains undetectable. He will re evaluate whether or not to continue with lupron at each visit. LUTS / dysuria: Rec continue flomax 0.4-0.8mg qhs, has not had any dysuria. This is resolved Leg cramps Patient has been evaluated by vascular surgery and has moderate PVD. He is to be seen by cardiology again in February 2021. He did not tolerate the side effects of Pletal so has stopped med. He continues with aspirin and atorvastatin. Followup: He will [...] Visit Radiation Oncology Grace Raymond APRN [facility] RADIATION ONCDEBBIE [place], [place] [address] (Wo rk) 05/18/2022 Infusion Hematology and Oncology documented as of this encounter Visit Diagnoses Diagnosis Malignant neoplasm of prostate documented in this encounter Care Teams Pump Erector Relationship Specialty Start Date End Date Tylor William PA PCP - General General Internal Medicine 01/13/20 documented as of this encounter
--- OUTSIDE RECORDS SUMMARY | 2022-05-12 01:19 | XMS_ITS | Encounter Summary ---
:1950 Author Organization [facility] [place] [address] Care Team Providers Name Role Phone Haja Marshall MD Primary Care Provider Encounter Details Date Type Department Care Team Description 11/27/2019 Office Visit Radiation Oncology at Haja Marshall M alignant neoplasm of [facility] prostate [address] [place], [place] RADIATION ONCOL OGY [address] [place], [place] [phone] (Wo rk) Social History Tobacco Use Types [...] Sign Reading Time Taken Comments Blood Pressure 122/60 11/27/2019 4:00 PM EST Pulse 76 11/27/2019 4:00 PM EST Temperature 36.8 ??C (98.3 ??F) 11/27/2019 4:00 PM EST Respiratory Rate 16 11/27/2019 4:00 PM EST Oxygen Saturation 100% 11/27/2019 4:00 PM EST Inhaled Oxygen Concentration - - Weight 73.9 kg (163 lb) 11/27/2019 4:00 PM EST Height - - Body Mass Index - - documented in this encounter Progress Notes Haja Marshall MD - 11/27/2019 4:30 PM EST Images from the original note were not included. RADIATION ONCOLOGY - Weekly On Treatment Visit Note 11/27/19 Haja Marshall MD, MS Radiation Oncology [facility] [phone] (paging first press operator) Pager #[phone] PATIENT IDENTIFICATION Name Rey Jean Baptiste Date [...] 79.2 Gy in 44 fractions Current Dose: 30.6 Gy in 17 fractions INTERVAL HISTORY Subjective: General - Overall feels fair this week. GI - No diarrhea. 3 soft stools daily. - Frequent urination shane at night, going about 1h between urination. However he has not needed ISC over the past week. Dysuria resolved this week week since starting ibuprofen 600qhs. Also taking flomax 0.8mg qhs along with casodex. He has filled Azo but not yet needed it. He does feel as though heis retaining urine. Baseline IPSS history is listed below. Prostate Today's Scores 08/04/2019 09/22/2019 Sexual Health Inventory for Men 17 (Mild ED) 23 International Prostate Symptom Score 16 (Moderate LUTS) 13 (Moderate LUTS) Pain: Pain score today is 0/10. MEDICATIONS Medications 11/27/19 1632 Medication Sig Taking? ibuprofen (Advil;Motrin) 200 mg Tablet Take 600 mg by mouth nightly. For dysuria and urinary frequency Yes tamsulosin (FLOMAX) 0.4 mg Capsule 0.8 mg nightly. Yes bicalutamide (CASODEX) 50 mg Tablet Take 1 tablet by mouth daily. Yes phenazopyridine (Pyridium) 200 mg Tablet Take 1 tablet by mouth 4 times daily as needed for Pain. Patient not taking: Reported on 11/27/2019 IMAGING I have personally reviewed this patient's interval portal imaging to confirm accurate positioning and alignment which matches the patient's original approved treatment planning images. EXAM: BP 122/60 Pulse 76 Temp 36.8 ??C (98.3 ??F) Resp 16 Wt 73.9 kg (163 lb) SpO2 100% Constitutional: he appears well-developed and [...] LUTS / dysuria: Rec continue flomax 0.8mg qhs, ibuprofen 600mg qhs. Followup: Return to clinic next week for on treatment check. documented in this encounter Plan of Treatment Upcoming Encounters Date Type Specialty Care Team Description 05/18/2022 Office Visit Radiation Oncology Grace Raymond APRN [facility] RADIATION ONCDEBBIE [place], [place] [address] (Wo rk) 05/18/2022 Infusion Hematology and Oncology documented as of this encounter Visit Diagnoses Diagnosis Malignant neoplasm of prostate documented in this encounter Care Teams Coil Placer Relationship Specialty Start Date End Date Haja Marshall MD PCP - General Radiation Oncology 09/24/19 01/12/[address] [place] [address] [place] [address] documented as of this encounter
--- OUTSIDE RECORDS SUMMARY | 2022-05-12 01:19 | XMS_ITS | Encounter Summary ---
:1950 Author Organization [facility] [place] [address] Care Team Providers Name Role Phone Haja Marshall MD Primary Care Provider Encounter Details Date Type Department Care Team Description 10/16/2019 Telephone Radiation Oncology at Clara Hameed RN [address] [phone] Social History Tobacco Use [...] this encounter Miscellaneous Notes Telephone Encounter - Clara Hameed RN - 10/16/2019 9:02 AM EST Radiation Oncology Nurse Telephone Note [facility] [place], [place] Radiation Oncology Post-Procedure Phone Note Name: Rey Hadley#: [id number] : 1950 Date/Time of Call: 10/16/19 Procedure: Placement of Gold Coil Fiducials / space oar gel Date of Procedure: 10/15/19 Spoke on the phone to: Patient If not patient, whom? x Message left on answering machine Call attempted - unable to contact patient General condition as stated by the patient or designee: Excellent Good Fair Poor Other x I feel like I never had anything done ??? The patient's pain is controlled:Patient Denies pain. Rectal pressure that he had yesterday is no gone. YES NO x Comments/intervention: ??? Patient denies tenderness / swelling in perineum/scrotum: Also denies any bleeding YES NO x Coments/intervention: ??? Patient denies changes in urinary symptoms: YES NO x Comments/intervention: ??? Patient has questions regarding medications: verbalized correct understanding of dexamethasone instructions. YES NO x Comments/interventions: ??? Patient knows how to contact us in case of emergency: YES NO x Comments/interventions: Section Radiation Oncology [facility] documented in this encounter Plan of Treatment Upcoming Encounters Date Type Specialty Care Team Description 05/18/2022 Office Visit Radiation Oncology Grace Raymond, HOME THEATER INSTALLER [facility] RADIATION ONCDEBBIE [place], [place] [address] (Wo rk) 05/18/2022 Infusion Hematology and Oncology documented as of this encounter Visit Diagnoses Not on filedocumented in this encounter Care Teams Pin Sorter And Bagger Relationship Specialty Start Date End Date Haja Marshall MD PCP - General Radiation Oncology 09/24/19 01/12/[address] [place] [address] [place] [address] documented as of this encounter
--- OUTSIDE RECORDS SUMMARY | 2022-05-12 01:19 | XMS_ITS | Encounter Summary ---
:1950 Author Organization [facility] [address] Care Team Providers Name Role Phone Tylor William Primary Care Provider Encounter Details Date Type Department Care Team Description 01/05/2020 Notes Only Radiation Oncology at Haja Marshall MD [address] RADIATION ONCOLOGY [place], [place] [phone] [place] [address] (Wo rk) Social History Tobacco Use Types [...] documented as of this encounter Progress Notes Haja Marshall MD - 01/05/2020 4:00 PM EDT Images from the original note were not included. RADIATION ONCOLOGY - Treatment Completion Summary Haja Marshall MD, MS Radiation Oncology [facility] [phone] (paging help desk operator) Pager #[phone] PATIENT IDENTIFICATION ?? Name Rey Jean Baptiste Date of 1950 ? PCP PEDRO Astudillo Referring (if different) Dr. Woodall ? Diagnosis High-Risk Prostate Cancer (Gl 4+5, PSA 13.5, cT2a) ? NEOADJUVANT / CONCURRENT THERAPY: LT-ADT (planned 36 months) Lupron #1: (22.5 mg) - 08/04/19 Lupron #2: (22.5 mg) - 11/10/19 ?? INTENT OF THERAPY: Definitive (Curative) ?? RADIATION TREATMENT DETAILS: ?? Initial Treatment Site Pelvis, Entire SV and Prostate Prescribed Dose 45 Gy in 25 fractions ? Boost Treatment Site 1 Proximal SV and Prostate Prescribe Dose 68.4Gy in 38 fractions ? Boost Treatment Site 2 Prostate Prescribed Dose 79.2 Gy in 44 fractions ? Start Date End Date 11/05/19 01/05/20 ?? SPECIAL TECHNICAL CONSIDERATIONS: The patient was simulated on a CT simulator. Customized powers were designed to encompass the targetvolume and identify organs at risk and with the intent of minimizing normal tissue toxicity. TREATMENT TOLERANCE: With regard to side effects noted during radiotherapy, the patient tolerated treatment with expectedtoxicities for this treatment area and dose, including cystitis/prostatitis. This was managed with oral medication and he briefly required use of ISC. TREATMENT RESPONSE: The patient's response to treatment was undetermined, as he was largely asymptomatic at the time of presentation. PSA will be monitored as part of ongoing surveillance. FOLLOWUP: Follow-up visit with Radiation Oncology in [facility] is scheduled for 02/05/20 for Lupron and clinical symptom check; he has received instructions to call this office or seek the help of the local emergency room if any further problems should arise prior to followup. documented in this encounter Plan of Treatment Upcoming Encounters Date Type Specialty Care Team Description 05/18/2022 Office Visit Radiation Oncology Grace Raymond APRN [facility] DR ZOFIA ALBARADO [place], [place] [address] (Wo rk) 05/18/2022 Infusion Hematology and Oncology documented as of this encounter Visit Diagnoses Not on filedocumented in this encounter Care Teams Seed Corn Manager Production Relationship Specialty Start Date End Date Tylor William PA PCP - General General Internal Medicine 01/13/20 documented as of this encounter
--- OUTSIDE RECORDS SUMMARY | 2022-05-12 01:19 | XMS_ITS | Encounter Summary ---
:1950 Author Organization [facility] [place] [address] Care Team Providers Name Role Phone Haja Marshall MD Primary Care Provider Encounter Details Date Type Department Care Team Description 12/04/2019 Office Visit Radiation Oncology at Haja Marshall M alignant neoplasm of [facility] prostate [address] [place], [place] RADIATION ONCOL OGY [address] [place], [place] [phone] (Wo rk) Social History Tobacco Use Types [...] Sign Reading Time Taken Comments Blood Pressure 112/79 12/04/2019 4:00 PM EDT Pulse 99 12/04/2019 4:00 PM EDT Temperature 37 ??C (98.6 ??F) 12/04/2019 4:00 PM EDT Respiratory Rate 16 12/04/2019 4:00 PM EDT Oxygen Saturation 98% 12/04/2019 4:00 PM EDT Inhaled Oxygen Concentration - - Weight 74.2 kg (163 lb 9.6 oz) 12/04/2019 4:00 PM EDT Height - - Body Mass Index - - documented in this encounter Progress Notes Haja Marshall MD - 12/04/2019 4:45 PM EDT Images from the original note were not included. RADIATION ONCOLOGY - Weekly On Treatment Visit Note 12/04/19 Haja Marshall MD, MS Radiation Oncology [facility] [phone] (paging nut sheller machine operator) Pager #[phone] PATIENT IDENTIFICATION Name Rey Jean Baptiste Date [...] 79.2 Gy in 44 fractions Current Dose: 29.6 Gy in 22 fractions INTERVAL HISTORY Subjective: General - Overall feels well this week. GI - No diarrhea. - Frequent urination at night is unchanged, per baseline (about 1h between urination). He did need to ISC last Sunday but not since then. No dysuria - taking ibuprofen 600qhs every othe rnight. Alsotaking flomax 0.8mg qhs along with casodex. He has filled Azo but not yet needed it. He does feel asthough he is retaining urine. Baseline IPSS history is listed below. Prostate Today's Scores 08/04/2019 09/22/2019 Sexual Health Inventory for Men 17 (Mild ED) 23 International Prostate Symptom Score 16 (Moderate LUTS) 13 (Moderate LUTS) Pain: Pain score today is 0/10. MEDICATIONS Medications 12/04/19 9622 Medication Sig Taking? ibuprofen (Advil;Motrin) 200 mg [...] original approved treatment planning images. EXAM: BP 112/79 Pulse 99 Temp 37 ??C (98.6 ??F) Resp 16 Wt 74.2 kg (163 lb 9.6 oz) SpO2 98% Constitutional: he appears well-developed and well-nourished. No [...] Visit Radiation Oncology Grace Raymond, SHARRON [facility] RADIATION VERENA AG[place]AR [place], [place] [address] (Wo rk) 05/18/2022 Infusion Hematology and Oncology documented as of this encounter Visit Diagnoses Diagnosis Malignant neoplasm of prostate documented in this encounter Care Teams Soda Worker Relationship Specialty Start Date End Date Haja Marshall MD PCP - General Radiation Oncology 09/24/19 01/12/[address] [place] [address] [place] [address] documented as of this encounter
--- OUTSIDE RECORDS SUMMARY | 2022-05-12 01:19 | XMS_ITS | Encounter Summary ---
:1950 Author Organization [facility] [place] [address] Care Team Providers Name Role Phone Tylor William Primary Care Provider Encounter Details Date Type Department Care Team Description 05/28/2020 Office Visit Radiation Oncology at Jennifer Manning Ma lignant neoplasm of [facility] DISASTER OR DAMAGE CONTROL SPECIALIST prostate [address] [place] [phone] RADIATION ONCOLOGY [phone] [place], [place] [address] Social History Tobacco Use Types [...] Sign Reading Time Taken Comments Blood Pressure 139/75 05/28/2020 3:46 PM EDT Pulse 71 05/28/2020 3:46 PM EDT Temperature 36.4 ??C (97.5 ??F) 05/28/2020 3:46 PM EDT Respiratory Rate 16 05/28/2020 3:46 PM EDT Oxygen Saturation 100% 05/28/2020 3:46 PM EDT Inhaled Oxygen Concentration - - Weight 74.8 kg (165 lb) 05/28/2020 3:46 PM EDT Height 175.3 cm (5' 9) 05/28/2020 3:46 PM EDT Body Mass Index 24.37 05/28/2020 3:46 PM EDT documented in this encounter Patient Instructions Patient InstructionsJennifer Manning APRN - 05/28/2020 1:45 PM EDT He will return in 3 months with labs prior and lupron injection. documented in this encounter Progress Notes Jennifer Manning APRN - 05/28/2020 1:45 PM EDT Images from the original note were not included. RADIATION ONCOLOGY - Follow up Visit Note 05/28/20 PATIENT IDENTIFICATION Name Rey Jean Baptiste Date of 1950 PCP PEDRO Peralta Referring MD (if different) Dr. Woodall Diagnosis High-Risk Prostate Cancer (Gl 4+5, PSA 13.5, cT2a) NEOADJUVANT / CONCURRENT THERAPY: LT-ADT (planned 36 months) Lupron #1: (22.5 mg) - 08/04/19 Lupron #2: (22.5 mg) - 11/10/19 Lupron #3: (22.5mg ) - 02/05/20 (planned later today) Lupron #4 (22.5 mg) - 05/28/20 INTENT OF THERAPY: Definitive (Curative) RADIATION TREATMENT DETAILS: Initial Treatment Site Pelvis, Entire SV and Prostate Prescribed Dose 45 Gy in 25 fractions Boost Treatment Site 1 Proximal SV and Prostate Prescribe Dose 68.4Gy in 38 fractions Boost Treatment Site 2 Prostate Prescribed Dose 79.2 Gy in 44 fractions Completion Date 01/05/20 INTERVAL HISTORY Subjective: General - Overall continues to feel well. He continues to work despite his lack of energy. He just pushes through- he has no stamina. GI - No diarrhea or cramping. - Nocturia 3x/nt which is essentially unchanged from his pre-RT baseline. He continues with hot flashes,shane at night. He has gained weight and he is not happy about that. He has no depression - no mood swings. Baseline IPSS history is listed below. Prostate Today's Scores 08/04/2019 09/22/2019 02/05/2020 Sexual Health Inventory for Men 17 (Mild ED) 23 21 (Mild ED) International Prostate Symptom Score 16 (Moderate LUTS) 13 (Moderate LUTS) 13 (Moderate LUTS) Pain: Pain score today is 0/10. MEDICATIONS Medications 05/28/20 1551 Medication Sig Taking? atorvastatin (Lipitor) 40 mg Tablet Take 1 tablet by mouth daily. Yes tamsulosin (FLOMAX) 0.4 mg Capsule 0.8 mg nightly. Yes ibuprofen (Advil;Motrin) 200 mg Tablet Take 600 mg by mouth every 6 hours as needed. For dysuria andurinary frequency IMAGING / LABS PSA 06/2018 - 10.7 06/2019 - 13.5 12/2019 - 0.02 05/18/20 - <0.01 T 12/2019 - 7.9 (lab nl >240) 05/18/20 - <7.0 EXAM: BP 139/75 (Patient Position: Sitting) Pulse 71 Temp 36.4 ??C (97.5 ??F) (Temporal) Resp 16 Ht 175.3 cm (5' 9) Wt 74.8 kg (165 lb) SpO2 100% BMI 24.37 kg/m?? Constitutional: he appears well-developed and well-nourished. No distress. Rectal deferred Performance Status: KPS Score ECOG Grade Definition [...] Tolerating ADT as anticipated. Continue as planned. Lc next due in 12 weeks . We discussed the length of treatment again as well as the side effects. He does not feel that he will be able to continue for 3 years with this therapy. I discussed the rationale for the treatment and we would discuss itagain at his next visit. He is agreeable to continuing with treatment today. He was pleased that hisPSA was so low. LUTS / dysuria: Rec continue flomax 0.4-0.8mg qhs, has not had any dysuria. Will stop aleve. Followup: He will return in 12 weeks with labs prior for his next lupron injection. He is comfortable with this plan. documented in this encounter Plan of Treatment Upcoming Encounters Date Type Specialty Care Team Description 05/18/2022 Office Visit Radiation Oncology Grace Raymond APRN [facility] RADIATION ONCDEBBIE [place], [place] [address] (Wo rk) 05/18/2022 Infusion Hematology and Oncology documented as of this encounter Visit Diagnoses Diagnosis Malignant neoplasm of prostate documented in this encounter Care Teams Interactive Multimedia Designer Relationship Specialty Start Date End Date Tylor William PA PCP - General General Internal Medicine 01/13/20 documented as of this encounter
--- OUTSIDE RECORDS SUMMARY | 2022-05-12 01:19 | XMS_ITS | Encounter Summary ---
:1950 Author Organization [facility] Address [facility] [place] [address] Care Team Providers Name Role Phone Tylor William Primary Care Provider Reason for Visit Reason Comments Injections Lupron Treatment/Therapy Plan Authorization (Routine) - Closed Specialty Diagnoses / Procedures Referred By Contact Refer red To Contact Diagnoses Primary malignant neoplasm of prostate with high risk of recurrence due to Ramon score of 8 to 10 and PSA greater than 20 Haja Marshall MD [facility] Rad Onc Office [address] [place] [address] RADIATION ONCOLOGY [place], [place] [phone] Fax: Referral ID Status Reason Start Date Expiration Date Visits Requ ested Visits Authorized [id number] Closed 08/04/2019 08/03/2020 1 1 Encounter Details Date Type Department Care Team Description 02/05/2020 Infusion Hematology Oncology at [facility] malignant neoplasm [facility] of prostate with high risk [address] [place] [address] of recurrence due to Ramon [place], [place] [phone] score of 8 to 10 and PSA [phone] greater than 20 Social History Tobacco Use [...] documented as of this encounter Progress Notes Carol Anguiano RN - 02/05/2020 11:30 AM EDT Infusion Note Diagnosis:Prostate Cancer Treatment: Lupron Injection Lupron 22.5mg injected in left gluteal. Patient instructed on side effects of Lupron. Patient states understanding of teaching, Patient aware to call clinic with any questions or concerns. Plan: Return to clinic as scheduled. documented in this encounter Plan of Treatment Upcoming Encounters Date Type Specialty Care Team Description 05/18/2022 Office Visit Radiation Oncology Grace Raymond, DOCUMENTATION NURSE [facility] RADIATION ONCDEBBIE [place], [place] [address] (Wo rk) 05/18/2022 Infusion Hematology [...] Action Action Date Dose Rate Site leuprolide (LUPRON DEPOT) Given 02/05/2020 12:17 PM 22.5 mg Left Gluteal injection 22.5 mg EDT 22.5 mg, Intramuscular, ONCE, 1 dose, On Nidhi 02/05/20 at 1230, Routine documented in this encounter Care Teams Domestic Housekeeper Relationship Specialty Start Date End Date Tylor William PA PCP - General General Internal Medicine 01/13/20 documented as of this encounter
--- OUTSIDE RECORDS SUMMARY | 2022-05-12 01:19 | XMS_ITS | Encounter Summary ---
:1950 Author Organization [facility] [place] [address] Care Team Providers Name Role Phone Unavailable Primary Care Provider Unavailable Reason for Visit Reason Comments Injections Leupron 22.5mg Treatment/Therapy Plan Authorization (Routine) - Closed Specialty Diagnoses / Procedures Referred By Contact Refer red To Contact Diagnoses Primary malignant neoplasm of prostate with high risk of recurrence due to Ramon score of 8 to 10 and PSA greater than 20 Haja Marshall MD [facility] Rad Onc Office [address] [place] [address] RADIATION ONCOLOGY [place], [place] [phone] Fax: Referral ID Status Reason Start Date Expiration Date Visits Requ ested Visits Authorized [id number] Closed 08/04/2019 08/03/2020 1 1 Encounter Details Date Type Department Care Team Description 08/04/2019 Infusion Hematology Oncology at [facility] malignant neoplasm [facility] of prostate with high risk [address] [place] [address] of recurrence due to [place], [place] [phone] score of 8 to 10 and PSA [phone] greater than 20 Social History Tobacco Use [...] documented as of this encounter Progress Notes Caryn Roberson RN - 08/04/2019 12:30 PM EST Infusion Note Diagnosis:Prostate Cancer Treatment: Lupron Injection Lupron 22.5mg injected in Left gluteal. Patient instructed on side effects of Lupron. Patient states understanding of teaching, Patient aware to call clinic with any questions or concerns. Plan: Return to clinic as scheduled. documented in this encounter Plan of Treatment Upcoming Encounters Date Type Specialty Care Team Description 05/18/2022 Office Visit Radiation Oncology Grace Raymond, STRAIGHTEDGE MACHINE OPERATOR HELPER [facility] RADIATION ONCDEBBIE [place], [place] [address] (Wo rk) 05/18/2022 Infusion Hematology [...] Dose Rate Site leuprolide (LUPRON DEPOT) Given 08/04/2019 12:39 PM 22.5 mg Left Gluteal injection 22.5 mg EST 22.5 mg, Intramuscular, ONCE, 1 dose, On 08/04/19 at 1245, Routine documented in this encounter
--- OUTSIDE RECORDS SUMMARY | 2022-05-12 01:19 | XMS_ITS | Encounter Summary ---
:1950 Author Organization [facility] Address One [facility] [address] [place] [address] Care Team Providers Name Role Phone Haja Marshall MD Primary Care Provider Encounter Details Date Type Department Care Team Description 12/28/2019 Telephone Radiation Oncology a t [facility] Keeley Goodson [address] [place] [phone] Social History Tobacco Use Types [...] this encounter Miscellaneous Notes Telephone Encounter - Keeley Goodson - 12/28/2019 5:02 PM EDT Called Rey to inform him of the following: As a new precaution with COVID-19 we are calling all patients before they come in for their appointment to screen for any potential symptoms. 1. EXPOSURE: ???Have you been in contact with anyone suspected or confirmed to have COVID-19 in the past 14 days??? No 2. Do you have a fever, cough, or shortness of breath? No [if they say yes to symptoms but [...] 05/18/2022 Office Visit Radiation Oncology Grace Raymond, COAL GRADER [facility] RADIATION [place], [place] [address] (Wo rk) 05/18/2022 Infusion Hematology and Oncology documented as of this encounter Visit Diagnoses Not on filedocumented in this encounter Care Teams Tunneling Machine Operator Relationship Specialty Start Date End Date Haja Marshall MD PCP - General Radiation Oncology 09/24/19 01/12/[address] [place] [address] [place] [address] documented as of this encounter
--- OUTSIDE RECORDS SUMMARY | 2022-05-12 01:19 | XMS_ITS | Encounter Summary ---
:1950 Author Organization [facility] Address One [facility] [place] [address] Care Team Providers Name Role Phone Haja Marshall MD Primary Care Provider Encounter Details Date Type Department Care Team Description 12/21/2019 Telephone Radiation Oncology a t [facility] Keeley Goodson [address] [place] [phone] Social History Tobacco Use Types [...] Notes Telephone Encounter - Keeley Goodson - 12/21/2019 3:52 PM EDT Called Rey to inform him [...] 05/18/2022 Office Visit Radiation Oncology Grace Raymond, COTTON TIER ONE [facility] [place], [place] [address] (Wo rk) 05/18/2022 Infusion Hematology and Oncology documented as of this encounter Visit Diagnoses Not on filedocumented in this encounter Care Teams Custom Applicator Relationship Specialty Start Date End Date Haja Marshall MD PCP - General Radiation Oncology 09/24/19 01/12/[address] [place] [address] [place] [address] documented as of this encounter
--- OUTSIDE RECORDS SUMMARY | 2022-05-12 01:19 | XMS_ITS | Encounter Summary ---
:1950 Author Organization [facility] [place] [address] Care Team Providers Name Role Phone Haja Marshall MD Primary Care Provider Encounter Details Date Type Department Care Team Description 11/13/2019 Office Visit Radiation Oncology at Haja Marshall M alignant neoplasm of [facility] prostate [address] [place], [place] RADIATION ONCOL OGY [address] [place], [place] [phone] (Wo rk) Social History Tobacco Use Types [...] Sign Reading Time Taken Comments Blood Pressure 139/70 11/13/2019 4:00 PM EST Pulse 76 11/13/2019 4:00 PM EST Temperature 36.7 ??C (98 ??F) 11/13/2019 4:00 PM EST Respiratory Rate 16 11/13/2019 4:00 PM EST Oxygen Saturation 99% 11/13/2019 4:00 PM EST Inhaled Oxygen Concentration - - Weight 73.4 kg (161 lb 12.8 oz) 11/13/2019 4:00 PM EST Height - - Body Mass Index - - documented in this encounter Progress Notes Haja Marshall MD - 11/13/2019 4:00 PM EST Images from the original note were not included. RADIATION ONCOLOGY - Weekly On Treatment Visit Note 11/13/19 Haja Marshall MD, MS Radiation Oncology [facility] [phone] (paging primary operator) Pager #[phone] PATIENT IDENTIFICATION Name Rey Jean Baptiste Date [...] 79.2 Gy in 44 fractions Current Dose: 12.6 Gy in 7 fractions INTERVAL HISTORY Subjective: General - He had a catheter placed last week, but this was likely due to taking oxybutynin. He has been taught to self-cath by Dr Woodall and is able to empty his bladder this way. GI - No diarrhea. - Taking flomax 0.8mg qhs along with casodex. Baseline IPSS history is listed below. Prostate Today's Scores 08/04/2019 09/22/2019 Sexual Health Inventory for Men 17 (Mild ED) 23 International Prostate Symptom Score 16 (Moderate LUTS) 13 (Moderate LUTS) Pain: Pain score today is 0/10. MEDICATIONS Medications 11/13/19 8467 Medication Sig Taking? tamsulosin (FLOMAX) 0.4 mg Capsule 0.8 mg nightly. Yes bicalutamide (CASODEX) 50 mg Tablet Take 1 tablet by mouth daily. Yes IMAGING I have personally reviewed this patient's interval portal imaging to confirm accurate positioning and alignment which matches the patient's original approved treatment planning images. EXAM: BP 139/70 Pulse 76 Temp 36.7 ??C (98 ??F) Resp 16 Wt 73.4 kg (161 lb 12.8 oz) SpO2 99% Constitutional: he appears well-developed and [...] radiotherapy/ADT: Tolerating as anticipated. Continue as planned. Next Lupron due this week or next. Followup: Return to clinic next week for on treatment check. documented in this encounter Plan of Treatment Upcoming Encounters Date Type Specialty Care Team Description 05/18/2022 Office Visit Radiation Oncology Grace Raymond APRN [facility] RADIATION ONCDEBBIE [place], [place] [address] (Wo rk) 05/18/2022 Infusion Hematology and Oncology documented as of this encounter Visit Diagnoses Diagnosis Malignant neoplasm of prostate documented in this encounter Care Teams Locker Room Attendant Relationship Specialty Start Date End Date Haja Marshall MD PCP - General Radiation Oncology 09/24/19 01/12/[address] [place] [address] [place] [address] documented as of this encounter
--- OUTSIDE RECORDS SUMMARY | 2022-05-12 01:19 | XMS_ITS | Encounter Summary ---
:1950 Author Organization [facility] [address] Care Team Providers Name Role Phone Ursula Jacob Primary Care Provider Encounter Details Date Type Department Care Team Description 03/22/2021 Office Visit Vascular Surgery at [facility], Int ermittent claudication; [facility] PAD (peripheral artery disease) [facility] [address] [place], [place] VASCULAR SURGERY [address] [place] [address] [phone] Social History Tobacco Use Types Packs/Day Years [...] documented as of this encounter Progress Notes Renetta Lei MD - 03/22/2021 1:45 PM EDT Vascular Surgery Clinic Note Reason for Clinic Visit: Progressive left leg claudication HPI: Rey Jean Baptiste is a 71 year old man with progressive left leg claudication. He is now starting todescribe symptoms consistent with nocturnal metatarsalgia and developing rest pain. No tissue loss. States he can ambulate about 100 feet before needing to stop. Since he was first evaluated by Dr Barnard he has been on optimal medical management including aspirin, atorvastatin and a walking program. Although, he states recently he has not been on aspirin. At his last visit in September 2020 he was started on Pletal with minimal improvement in his symptoms. No prior history of vascular disease. PMH notable for stage IIIc prostate cancer s/p pelvic radiation on neoadjuvant Lupron therapy. Initially his muscle cramps were attributed to the Lupron. Review of Systems: A full review encompassing at least 10 organ systems including general, neuro, pulm, cardiac, GI, , MSK, Endo, and psych was negative other than that listed in the HPI. Past Medical History: Past Medical History: Diagnosis Date ??? Lactose intolerance ??? Prostate cancer Past Surgical History: Past Surgical History: Procedure Laterality Date ??? PROSTATE BIOPSY 07/04/2019 Functional Status/Social Hx: Lives at home, Retired, Never smoker Family Hx: Negative for Thrombosis, Bleeding Disorders Medications: Current Outpatient Medications on File Prior to Visit Medication Sig Dispense Refill ??? atorvastatin (Lipitor) 40 mg Tablet Take 1 tablet by mouth daily. 90 tablet 3 ??? ibuprofen (Advil;Motrin) 200 mg Tablet Take 600 mg by mouth every 6 hours as needed. For dysuriaand urinary frequency ??? tamsulosin (FLOMAX) 0.4 mg Capsule 0.8 mg nightly. 11 Current Facility-Administered Medications on File Prior to Visit Medication Dose Route Frequency Provider Last Rate Last Admin ??? [COMPLETED] iohexoL (Omnipaque) (350 mg/mL) injection solution 0-200 mL 0- 200 mL Intravenous Once PRN Rk Urena MD 150 mL at 03/22/21 1044 Allergies: Patient has no known allergies. Physical Exam: Temp: -- Heart Rate: [73] Resp: -- BP: (126)/(66) SpO2: [93 %] Heart Rate from SpO2: -- General: NAD, resting comfortably HEENT: Anicteric sclerae CVS: Regular rate Pulm: Equal chest rise bilaterally Abd: Soft, non tender, non distended Ext: RLE: No edema. Skin warm and pink. No tissue loss. Brisk capillary refill. LLE: No edema. Skin warm and pink. No tissue loss. Brisk capillary refill. Forefoot rubor Neuro: Grossly nonfocal, moving all extremities. Vascular Exam: R L Radial 2/2 2/2 Femoral 2/2 1/2 DP 0/2 0/2 PT 0/2 0/2 Labs: No results for input(s): WBC, HGB, HCT, PLATELET in the last 72 hours. No results for input(s): NA, K, CL, CO2, BUN, CREATININE, PHOS, CALCIUM in the last 72 hours. Studies/Imaging: ABIs 03/22/2021 Findings: ?? Right ?Pressure (mm Hg) ?? ROXANNE ??Waveform ?TBI ?? Brachial Artery ?140 ? Dorsalis Pedis (Ankle) Artery ?59 ?0.42 ??Monophasic ? Posterior Tibial (Ankle) Artery ??72 ?0.51 ??Hertford-Biphasic ? Great Toe ?40 ? 0.29 ? [...] a new finding from the previous exam. CTA reviewed: Multilevel disease including left common and external iliac stenosis, long- segment SFA occlusion, and infra-geniculate disease with posterior tibial artery occlusion. ?? Assessment and Plan: Rey Jean Baptiste is a 71 year old man who has progressive left leg claudication developing rest pain without tissue loss. Decreased ABIs to 0.34 and toe pressure of 19 on the affected side. CTA notable formulti-level disease. Discussed risks, benefits and alternatives of left lower extremity angiogram with intervention with moderate sedation. Reviewed the natural history of peripheral arterial disease and it's progressive nature. Reviewed that if endovascular revascularization was not able to be achieved he may require a by pass. Discussed that even with intervention he would require long-term surveillance and possible re-intervention as needed. Continue medical management with aspirin and statin. Foot protective strategies reviewed. Will schedule for left lower extremity angiogram Renetta Lei Vascular Surgery Fellow pager [phone] 03/22/2021 I saw and evaluated Rey Jean aBptiste and agree with this note and plan as scribed in my presence. Tom Mahoney MD, MS Section of Vascular Surgery documented in this encounter Plan of Treatment Upcoming Encounters Date Type Specialty Care Team Description 05/18/2022 Office Visit Radiation Oncology Grace Raymond, PODIATRIC TECHNICIAN [facility] RADIATION ON[place], [place] [address] (Wo rk) 05/18/2022 Infusion Hematology and Oncology documented as of this encounter Visit Diagnoses Diagnosis Intermittent claudication Peripheral vascular disease, unspecified PAD (peripheral artery disease) Peripheral vascular disease, unspecified documented in this encounter Care Teams Associate Accountant Relationship Specialty Start Date End Date Ursula Jacob PCP - General Family Medicine 03/16/21 [address] [place] [address] documented as of this encounter
--- OUTSIDE RECORDS SUMMARY | 2022-05-12 01:19 | XMS_ITS | Encounter Summary ---
:1950 Author Organization [facility] [place] [address] Care Team Providers Name Role Phone Haja Marshall MD Primary Care Provider Reason for Visit Reason Comments Simulation Consultation (Routine) - Closed Specialty Diagnoses / Procedures Referred By Contact Refer red To Contact Radiation Oncology Diagnoses Primary malignant neoplasm of prostate with high risk of recurrence due to Hamilton score of 8 to 10 and PSA greater than 20 Haja Marshall MD [facility] Rad Onc Office Procedures Simulation for Radiation Therapy Planning [address] [place] [address] [place] [id number] Referral ID Status Reason Start Date Expiration Date Visits V isits Requested Authorized [id number] Closed Consult, 09/22/2019 09/21/2020 1 1 Test & Treat Encounter Details Date Type Department Care Team Description 10/24/2019 Ancillary Appointment Radiation Oncology at Osiris [facility] [address] [place] [id number] [phone] (Wo rk) Social History Tobacco Use Types [...] on file documented as of this encounter Patient Instructions Patient InstructionsJohnna Vinson RN - 10/24/2019 2:00 PM EST Radiation Therapy for Prostate Cancer ?? Once you have been diagnosed with prostate cancer you face decisions about how to treat it. ?? This document describes what is involved in treating your prostate cancer with Radiation Therapy here at [facility] Androgen Deprivation Therapy (ADT) ?? ADT means taking medicines to lower your testosterone. Prostate cancer feeds on testosterone, so taking it away starves your cancer. ?? You will first need to take a pill called bicalutamide which discourages your body from absorbingtestosterone. ?? After taking this pill you will come in for a shot called leuprolide which discourages your body from producing testosterone. ?? These two medicines work together to lower your testosterone level to a very low level. The length of time you take these medications will be personalized for you by your physician according to yourpersonal needs. ?? You will need to have lab draws periodically while you are on these medications. Gold Coils (Fiducial Markers) ?? Small gold filaments are placed in your prostate using local anaesthesia. They help your radiation oncologist to plan your radiation and target the radiation accurately. These are permanent. ?? The process for placing these is similar to your biopsy but usually is less uncomfortable. This occurs here in the office setting. Planning ?? A planning session (CT Simulation) and possibly an MRI will be scheduled for you. ?? These images are used to plan your radiation treatment. ?? At this visit you will receive small tattoo dots on your skin. These help sho exactly how you will be lined up on the radiation treatment table. ?? You will also be asked to have a comfortably full bladder for this simulation and for each radiation treatment. Urine in your bladder helps protect your bladder tissue from the radiation and helps keep some of your bowel out of the treatment area. About 2 weeks after simulation you will begin radiation treatments. What to Expect During Treatments. ?? Treatments are given in 15-30 minutes increments daily Sunday through Sunday during the hours of 7:30 am- 5 pm. ?? You may drive yourself to and from these appointments. You may request a certain time of day thatis convenient for you. ?? You may start feeling some side effects after a couple weeks. Side effects result from the radiation causing your prostate to swell and irritating cells near your prostate or the prostate bed area. ?? These may include some changes in your urination. It may become more difficult to start your flow. You may need to void more often. Your stream may be weaker. You may have some discomfort when you urinate. ?? Please tell the nurse or your doctor if you experience any of these symptoms. ?? You may notice a change in your bowel patterns. Your bowel movements may be more frequent and/or loose. ?? If you develop bowel symptoms, please let the nurse or your doctor know. Please ask the nurse or your doctor if you have any questions or concerns about your personalized course of treatment. documented in this encounter Plan of Treatment Upcoming Encounters Date Type Specialty Care Team Description 05/18/2022 Office Visit Radiation Oncology Grace Raymond APRN [facility] RADIATION ONCDEBBIE [place], [place] [address] (Wo rk) 05/18/2022 Infusion Hematology and Oncology Scheduled Orders Name Type Priority Associated Diagnoses Order S chedule Simulation for Procedures Routine Primary malignant Ordered: 09/22/2019 Radiation Therapy neoplasm of prostate Planning with high risk of recurrence due to Ramon score of 8 to 10 and PSA greater than 20 documented as of this encounter Visit Diagnoses Not on filedocumented in this encounter Care Teams Real Estate Services Administrator Relationship Specialty Start Date End Date Haja Marshall MD PCP - General Radiation Oncology 09/24/19 01/12/[address] [place] [address] [place] [address] documented as of this encounter
--- OUTSIDE RECORDS SUMMARY | 2022-05-12 01:19 | XMS_ITS | Encounter Summary ---
:1950 Author Organization [facility] [place] [address] Care Team Providers Name Role Phone Tylor William Primary Care Provider Reason for Visit Reason Comments Leg Pain lle pain foot pain worse at night and on ambulation Consultation (Routine) - Specialty Diagnoses / Procedures Referred By Contact Refer red To Contact Vascular Surgery Diagnoses Pain in leg, unspecified Polyneuropathy, unspecified Rachel-Ursula Emerson [facility] Vascular Surg 3v [address] [place] [address] [place] [address] Phone: Referral ID Status Reason Start Date Expiration Date Visits V isits Requested Authorized [id number] Consult, Test 03/24/2020 03/24/2021 12 12 & Treat PCP Updated and/or Approved Encounter Details Date Type Department Care Team Description 04/13/2020 Office Visit Vascular Surgery at [place], IZABELA (per ipheral artery disease); [facility] Luis Intermittent claudication; [facility] Atheroscl erosis of [place] arteries of extremities with intermittent claudication, bilateral legs ; [facility] Left foot pain [place], [place] CARDIOLOGY DEPT [phone] [place] [address] Social History Tobacco Use Types Packs/Day Years [...] Sign Reading Time Taken Comments Blood Pressure 136/55 04/13/2020 1:31 PM EDT Pulse 69 04/13/2020 1:31 PM EDT Temperature - - Respiratory Rate 10 04/13/2020 1:31 PM EDT Oxygen Saturation - - Inhaled Oxygen Concentration - - Weight 72.6 kg (160 lb) 04/13/2020 1:31 PM EDT Height 175.3 cm (5' 9) 04/13/2020 1:31 PM EDT Body Mass Index 23.63 04/13/2020 1:31 PM EDT documented in this encounter Progress Notes Luis Barnard MD - 04/13/2020 1:30 PM EDT Images from the original note were not included[place] [address] [address] CARDIOVASCULAR MEDICINE OUTPATIENT CONSULTATION Rey Jean Baptiste [id number] 04/13/2020 REFERRING PROVIDER: Ursula Jacob CHIEF COMPLAINT: Chief Complaint Patient presents with ??? Leg Pain lle pain foot pain worse at night and on ambulation PROBLEM LIST Patient Active Problem List Diagnosis ??? Primary malignant neoplasm of prostate with high risk of recurrence due to Sussex score of 8 to10 and PSA greater than 20 ??? Malignant neoplasm of prostate HISTORY OF PRESENT ILLNESS: Mr. Jean Baptiste is a very pleasant 70 year old man with history of stage IIIc prostate cancer s/p pelvicradiation and now on neoadjuvant lupron therapy who presents for evaluation of left foot pain and bilateral calf pain. He reports that in the past several months, at rest, he has sharp/stabbing pain inhis left great toe as well as discomfort in his left foot and ball of his foot. This seems worse with rest and improves with ambulation. Also with worse with palpitation of foot. He does note that withambulation around 200-250 ft, he has bilateral calf claudication. This is not lifestyle limiting. 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 He has no buttock pain; denies rest pain in calves or night-time awakening. No ulcerations. He has no chest pain or shortness of breath, PND, orthopnea, lower extremity edema, palpitations, pre-syncope or syncope. No history of CAD or TIA/stroke. Never smoker. He had ABIs today which showed R ROXANNE 0.48 with abnormal signals starting at popliteal artery and L ROXANNE 0.42 with abnormal signals starting at common femoral artery. PAST MEDICAL HISTORY: Past Medical History: Diagnosis Date ??? Lactose intolerance ??? Prostate cancer REVIEW OF SYSTEMS: GENERAL HEENT CV PULM x All negative x All negative All negative x All negative Weight loss Headache Chest Pain Non-productive cough Weight gain Vision change Palpitations Productive cough Fevers Sinus congestion Orthopnea Wheezing Chills Hoarseness LE edema Hemoptysis Night sweats Epistaxis PND Pleuritic pain Fatigue Syncope SOB x Claudication ESPARZA MSK RENAL ENDO GI All negative x All negative x All negative x All negative Arthralgias Frequency Heat intolerance Blood in stool x Myalgias Urgency Cold intolerance Dysphagia Weakness Hematuria Polydipsia Odynophagia Stiffness Flank pain Polyphagia Abdominal discomfort Dysuria Cushingoid Constipation Foamy urine Diarrhea Discharge Nausea/Vomiting LYMPH SKIN NEURO PSYCH x All negative x All negative x All negative x All negative Swollen nodes Rash Seizures Depressed affect Tender nodes Ulcers Tremors Occupational stress Diffuse nodes Bruising Spasticity Anxiety Local nodes Tanned skin Focal weakness Insomnia Night sweats Telangiectasias Diplopia Paresthesias Dizziness FAMILY HISTORY: Family History Problem Relation Age of Onset ??? Cancer Maternal Grandfather 80 throat SOCIAL HISTORY: Social History Tobacco Use ??? Smoking status: Never Smoker ??? Smokeless tobacco: Never Used Substance Use Topics ??? Alcohol use: Yes Frequency: Monthly or less Drinks per session: 1 or 2 Binge frequency: Never Comment: occasional beer MEDICATIONS: Current Outpatient Medications Medication Sig Dispense Refill ??? ibuprofen (Advil;Motrin) 200 mg Tablet Take 600 mg by mouth every 6 hours as needed. For dysuriaand urinary frequency ??? tamsulosin (FLOMAX) 0.4 mg Capsule 0.8 mg nightly. 11 ??? atorvastatin (Lipitor) 40 mg Tablet Take 1 tablet by mouth daily. 90 tablet 3 No current facility-administered medications for this visit. ALLERGIES: Patient has no known allergies. PHYSICAL EXAMINATION: Vital Signs: BP 136/55 (BP Location (NBP): Left arm, Patient Position: Sitting) Pulse 69 Resp 10 Ht 175.3 cm (5' 9) Wt 72.6 kg (160 lb) BMI 23.63 kg/m?? Exam Details: General: Pleasant 70 y.o. man in no acute distress Eyes: No scleral icterus ENT: Moist mucous membranes Heart: Regular rate and rhythm, normal S1/S2, no murmurs/rubs/gallops appreciated Lungs: Clear to ascultation bilaterally Abdomen: Soft, non-tender, non-distended, normoactive bowel sounds noted. Extremities: No peripheral edema noted. No ulcerations noted. Left rotary furnace tender to palpitation. Vessels: No carotid bruits appreciated. Arterial exam (R/L): Femoral 2/0, popliteal 02, DP/0 2/2, PT0/0, radial 2/2. Neuro: No gross abnormalities noted Psych: Alert and oriented 3 x, normal affect DATA PERSONALLY REVIEWED: ROXANNE 04/13/2020; ?? Right ?Pressure (mm Hg) ?? ROXANNE [...] (Ankle) Artery ??52 ?0.38 ??Monophasic ? Interpretation: ?? RIGHT: Moderately severe lower extremity arterial occlusive disease. Findings consistent with fem-pop disease. ?? LEFT: Moderately severe lower extremity arterial occlusive disease. Findings consistent with iliac disease. ASSESSMENT AND PLAN: #1 Left foot/toe pain #2 Bilateral intermittent claudication #3 PAD Mr. Jean Baptiste is a very pleasant 70 year old man with history of prostate cancer s/p radiation and nowreceiving Lupron who presents with left toe/foot pain and bilateral claudication. We discussed that his left foot/toe pain is not due to PAD as it gets worse with palpitation and improved with ambulation. However, he does have bilateral intermittent calf claudication (non-lifestyle limiting) with evidence of bilateral moderately-severe PAD. We discussed that mainstay of therapy at this point is medical management with risk factor optimization as well as walking program. He is active on every day basis and will continue to walk. BP well controlled. I will initiate ASA and high intensity statin. Can c onsider Pletal in future if symptoms worsen. Discussed symptoms of CLI and let me know if these develop. Plan: 1. Start aspirin 81 mg daily, atorvastatin 40 mg daily. 2. Walking program. 3. Baseline labs (CMP, lipid panel). 4. Return to clinic in 6 months, or sooner if necessary. Thank you for allowing me to participate in the care of your patient. Please do not hesitate to contact me with any questions or concerns. Luis Barnard MD, MPH, VI, [facility] Cardiovascular Algebra TeacherSales Operations Specialists[place] [address] documented in this encounter Plan of Treatment Upcoming Encounters Date Type Specialty Care Team Description 05/18/2022 Office Visit Radiation Oncology Grace Raymond, TODDLER CAREGIVER [facility] RADIATION ONCDEBBIE [place], [place] [address] (Wo rk) 05/18/2022 Infusion Hematology and Oncology documented as of this encounter Procedures Procedure Name Priority Date/Time Associated Diagnosis Comme nts HC VENIPUNCTURE Routine 04/13/2020 1:59 Atherosclerosis of Res ults for this PM EDT [place] arteries of procedure are in extremities with the results intermittent section. claudication, bilateral legs PAD (peripheral artery disease) Intermittent claudication COMPREHENSIVE Routine 04/13/2020 1:59 PAD (peripheral artery R esults for this METABOLIC PANEL PM EDT disease) procedure are in (NON-FASTING) Intermittent the results claudication section. documented in this encounter Results Lipid Panel (Reflex Direct LDL) (04/13/2020 1:59 PM EDT) P athologist Signature Chol, Total 193 mg/dL [facility] Comment: Lower Risk: <200 mg/dL Average Risk: 200-239 mg/dL Higher Risk: >lj=187 mg/dL Triglycerides 108 mg/dL [facility] Comment: Average Risk/Lower Risk: <150 mg/dL Borderline High Risk: 150-199 mg/dL High Risk: 200-499 mg/dL Very High Risk: >im=329 mg/dL HDL 42 mg/dL [facility] Comment: Males: ?? Higher Risk: <40 mg/dL Females: ?? HIgher Risk: <50 mg/dL LDL Cholesterol 129 mg/dL [facility] Comment: Lowest Risk: <100 mg/dL Lower Risk: 100-129 mg/dL Borderline High Risk: 130-159 mg/dL High Risk: 160-189 mg/dL Very High Risk: >bo=967 mg/dL Chol/HDL Ratio 4.6 ratio [facility] Lipid Interpretation See Note [facility] Comment: Lipid management should be guided by a p atient? s ASCVD risk, goals and preferences. ACC/AHA Guidelines recommend high intens ity statin if clinical ASCVD or LDL greater than or equal to 190 mg/dL. http://[employer].Feidee/LDN-AAB-Wmiluxash Adults aged 40-75 with LDL 70-189 mg/dL should have their 10 year ASCVD risk estimated with the ACC/AHA ASCVD risk es timator http://tools.acc.org/QMSRH-Ksom-Nhvqzxyb r/ Statin should be discussed if risk great er than or equal to 7.5% in non-diabetics. With diabetes, moderate i ntensity statin is recommended if risk less than 7.5%, high intensity if risk g reater than or equal to 7.5%. Annual lipid monitoring on statins is no t necessary. Evaluate secondary causes of Triglycerid es greater than 500 mg/dL or LDL greater than 190 mg/dL: See table 6 of A CC/AHA Guideline. Lifestyle modification is a critical com ponent of ASCVD risk reduction. Specimen Anatomical Collection Method Collection Time Receive d Time (Source) Location / / Volume Laterality Blood specimen 04/13/2020 1:59 PM 020 2:20 (specimen) EDT PM EDT Resulting Agency Comment Spec In Lab Luis Barnard MD CHEMISTRY ORDERABLES Performing Organization Address City/State/[place] [address] (ABNORMAL) Comprehensive metabolic panel (non-fasting) (04/13/2020 1:59 PM EDT) athologist Signature Glucose Lvl 100 65 - 199 [place] mg/dL [facility] Comment: Diabetes: >=200 mg/dL plus symp toms BUN 21 (H) 10 - 20 mg/dL [facility] Creatinine 0.91 0.80 - 1.50 mg/dL [facility] Sodium 140 135 - 145 mmol/L [facility] Potassium 5.3 (H) 3.5 - 5.0 mmol/L [facility] Comment: Please note: ??Patients with WBC >100,00 0 may have falsely elevated Potassium levels. ??For accurate Potassium quantif ication in these patients send serum separator tube (gold top) for subsequent determinations. ??Contact the Clinical Chemistry Laboratory if there are any qu estions. Chloride 105 98 - 107 mmol/L [facility] CO2 26 22 - 31 mmol/L [facility] Anion Gap 9 5 - 15 mmol/L [facility] Calcium 9.4 8.5 - 10.5 mg/dL [facility] Total Protein 6.7 6.1 - 8.0 gm/dL [facility] Albumin 4.1 3.2 - 5.2 gm/dL [facility] AST 15 0 - 39 unit/L [facility] ALT 15 0 - 55 unit/L [facility] Alk Phos 109 40 - 130 unit/L [facility] Total Bilirubin 0.5 0.2 - 1.3 mg/dL [facility] Estimated GFR 85 >=60 mL/min/1.73 m?? [facility] Comment: The eGFR was calculated using the CKD-EP I equation. As with all creatinine based estimates of kidney function, eGFR values calculated with the CKD-EPI equation are not accurate in patients wi th acute kidney failure, extremes of body mass or the acutely ill. http://[employer]/DHnkf eGFR 99 >=60 mL/min/1.73 m?? [facility] Comment: The eGFR was calculated using the CKD-EP I equation. As with all creatinine based estimates of kidney function, eGFR values calculated with the CKD-EPI equation are not accurate in patients wi th acute kidney failure, extremes of body mass or the acutely ill. [email or web address]/DHMCnkf Specimen Anatomical Collection Method Collection Time Receive d Time (Source) Location / / Volume Laterality Blood specimen 04/13/2020 1:59 PM 020 2:20 (specimen) EDT PM EDT Resulting Agency Comment Spec In Lab Luis Barnard MD CHEMISTRY ORDERABLES Performing Organization Address City/State/[facility] Code Phon e Number [place] [phone] documented in this encounter Visit Diagnoses Diagnosis PAD (peripheral artery disease) Peripheral vascular disease, unspecified Intermittent claudication Peripheral vascular disease, unspecified Atherosclerosis of [place] arteries of ex tremities with intermittent claudication, bilateral legs Left foot pain Pain in limb documented in this encounter Care Teams Veterinary Poultry Inspector Relationship Specialty Start Date End Date Tylor William PA PCP - General General Internal Medicine 01/13/20 documented as of this encounter
--- OUTSIDE RECORDS SUMMARY | 2022-05-12 01:19 | XMS_ITS | Encounter Summary ---
:1950 Author Organization [facility] [place] [address] Care Team Providers Name Role Phone Tylor William Primary Care Provider Encounter Details Date Type Department Care Team Description 11/17/2020 Orders Only Radiation Oncology at [facility] ign[facility] neoplasm of [facility] YEAST SUPERVISOR prostate [address] [place], [place] RADIATION ONCOL OGY [address] [place], [place] [phone] (Wo rk) Social History Tobacco Use Types [...] 05/18/2022 Office Visit Radiation Oncology Grace Raymond, YEAST SUPERVISOR [facility] RADIATION ONCDEBBIE [place], [place] [address] (Wo rk) 05/18/2022 Infusion Hematology and Oncology documented as of this encounter Visit Diagnoses Diagnosis Malignant neoplasm of prostate documented in this encounter Care Teams Machine Zipper Trimmer Relationship Specialty Start Date End Date Tylor William PA PCP - General General Internal Medicine 01/13/20 documented as of this encounter
--- OUTSIDE RECORDS SUMMARY | 2022-05-12 01:19 | XMS_ITS | Encounter Summary ---
:1950 Author Organization [facility] Address [facility] [place] [address] Care Team Providers Name Role Phone Tylor William Primary Care Provider Reason for Visit Reason Comments Injections Lupron Treatment/Therapy Plan Authorization (Routine) - Closed Specialty Diagnoses / Procedures Referred By Contact Refer red To Contact Diagnoses Primary malignant neoplasm of prostate with high risk of recurrence due to Ramon score of 8 to 10 and PSA greater than 20 Haja Marshall MD [facility] Rad Onc Office [address] [place] [address] RADIATION ONCOLOGY [place], [place] [phone] Fax: Referral ID Status Reason Start Date Expiration Date Visits Requ ested Visits Authorized [id number] Closed 08/04/2019 08/03/2020 1 1 Encounter Details Date Type Department Care Team Description 05/28/2020 Infusion Hematology Oncology at [facility] malignant neoplasm [facility] of prostate with high risk [address] [place] [address] of recurrence due to [place] [employer] [place], [place] [phone] score of 8 to 10 and PSA [phone] greater than 20 Social History Tobacco Use [...] encounter Progress Notes Carol Anguiano RN - 05/28/2020 2:30 PM EDT Infusion Note Diagnosis:Prostate Cancer Treatment: Lupron Injection Lupron 22.5mg injected in right gluteal. Patient instructed on side effects of Lupron. Patient states understanding of teaching, Patient aware to call clinic with any questions or concerns. Plan: Return to clinic as scheduled. documented in this encounter Plan of Treatment Upcoming Encounters Date Type Specialty Care Team Description 05/18/2022 Office Visit Radiation Oncology Grace Raymond, STOPPING BUILDER [facility] RADIATION ONCDEBBIE [place], [place] [address] (Wo rk) 05/18/2022 Infusion Hematology [...] Dose Rate Site leuprolide (LUPRON DEPOT) Given 05/28/2020 4:12 PM 22.5 mg Right Gluteal injection 22.5 mg EDT 22.5 mg, Intramuscular, ONCE, 1 dose, On Sun05/28/20 at 1600, Routine documented in this encounter Care Teams County Court Judge Relationship Specialty Start Date End Date Tylor William PA PCP - General General Internal Medicine 01/13/20 documented as of this encounter
--- OUTSIDE RECORDS SUMMARY | 2022-05-12 01:19 | XMS_ITS | Encounter Summary ---
:1950 Author Organization [facility] [place] [address] Care Team Providers Name Role Phone Tylor William Primary Care Provider Encounter Details Date Type Department Care Team Description 01/25/2021 Telephone Vascular Surgery at [facility] [place] [address] Social History Tobacco Use Types Packs/Day [...] this encounter Miscellaneous Notes Telephone Encounter - Angelita Bateman - 01/25/2021 10:18 AM EDT RECALL: SINDHU JENSEN to schedule appointment from recall documented in this encounter Plan of Treatment Upcoming Encounters Date Type Specialty Care Team Description 05/18/2022 Office Visit Radiation Oncology Grace Raymond, MARINE ENGINE MACHINIST APPRENTICE [facility] ER RADIATION ONCDEBBIE [place], [place] [address] (Wo rk) 05/18/2022 Infusion Hematology and Oncology documented as of this encounter Visit Diagnoses Not on filedocumented in this encounter Care Teams Farmworker Diversified Crops Relationship Specialty Start Date End Date Tylor William PA PCP - General General Internal Medicine 01/13/20 documented as of this encounter
--- OUTSIDE RECORDS SUMMARY | 2022-05-12 01:19 | XMS_ITS | Encounter Summary ---
:1950 Author Organization [place] [address] Care Team Providers Name Role Phone Tylor William Primary Care Provider Reason for Visit Reason Comments Injections SC Jax Treatment/Therapy Plan Authorization (Routine) - Closed Specialty Diagnoses / Procedures Referred By Contact Refer red To Contact Diagnoses Primary malignant neoplasm of prostate with high risk of recurrence due to Dexter score of 8 to 10 and PSA greater than [address] [facility] Rad Onc Office [address] [facility] [phone] Fax: Referral ID Status Reason Start Date Expiration Date Visits Requ ested Visits Authorized [id number] Closed 11/17/2020 11/17/2021 99 99 Encounter Details Date Type Department Care Team Description 02/18/2021 Infusion Hematology Oncology at [facility] malignant neoplasm [facility] of prostate with high risk [address] [facility] of recurrence due to Ramon [place], [place] [phone] score of 8 to 10 and PSA [phone] greater than 20 Social History Tobacco Use [...] Sign Reading Time Taken Comments Blood Pressure 133/75 02/18/2021 8:24 AM EDT Pulse 70 02/18/2021 8:24 AM EDT Temperature 36.6 ??C (97.8 ??F) 02/18/2021 8:24 AM EDT Respiratory Rate 18 02/18/2021 8:24 AM EDT Oxygen Saturation 100% 02/18/2021 8:24 AM EDT Inhaled Oxygen Concentration - - Weight 78.1 kg (172 lb 3.2 oz) 02/18/2021 8:24 AM EDT Height 171 cm (5' 7.32) 02/18/2021 8:24 AM EDT Body Mass Index 26.71 02/18/2021 8:24 AM EDT documented in this encounter Progress Notes Hemalatha Maurer RN - 02/18/2021 8:30 AM EDT Infusion Note Diagnosis:Prostate Cancer Treatment: Leuprolide Injection Lupron (Eligard) 22.5mg injected in left gluteal site. Patient instructed on side effects of Leuprolide. Patient states understanding of teaching, Patient aware to call clinic with any questions or concerns. Plan: Return to clinic as scheduled. documented in this encounter Plan of Treatment Upcoming Encounters Date Type Specialty Care Team Description 05/18/2022 Office Visit Radiation Oncology Grace Raymond, SHARRON [facility] RADIATION ONCDEBBIE [place], [place] [address] (Wo rk) 05/18/2022 Infusion Hematology [...] Action Action Date Dose Rate Site leuprolide (3 month) Given 02/18/2021 8:58 AM 22.5 mg Left Upper Outer (Eligard) injection EDT Quadr ant 22.5 mg 22.5 mg, Subcutaneous, ONCE, 1 dose, On Sun02/18/21 at 0845, Routine documented in this encounter Care Teams Senior Sustainability Consultant Relationship Specialty Start Date End Date Tylor William PA PCP - General General Internal Medicine 01/13/20 documented as of this encounter
--- OUTSIDE RECORDS SUMMARY | 2022-05-12 01:19 | XMS_ITS | Encounter Summary ---
:1950 Author Organization [facility] Address [address] [facility] [address] [place] [address] Care Team Providers Name Role Phone Haja Marshall MD Primary Care Provider Encounter Details Date Type Department Care Team Description 11/07/2019 Telephone Radiation Oncology at Clara Hameed RN [address] [phone] Social History Tobacco Use [...] Telephone Encounter - Clara Hameed RN - 11/07/2019 9:02 AM EST Radiation Oncology Nurse Telephone Note [facility] [place] [place] Patient calls stating he was up all night trying to void. He went to bed at 10:00, got up about an hour later to void , went back to bed then had to go again 10 mins later and this would happen every 10 mins to the point that just barely a trickle was coming out. His called the on-call doctor last night at [facility] and was told that this is not related to the 2radiation treatments he has received so far for his prostate ca. . He states this has happened in the past before he started on the Flomax. He confirms that he is taking 2 Flomax tabs at night. He states he is voiding better now, however he made an appointment to see his urologist, Dr Woodall [facility] today at 11:00. Plan : Will keep Dr Marshall informed of his status ( via this note) and nursing will check [facility]'s med record next week to obtain Dr Woodall's note. Patient was also informed that he has an appointment for his next Lupron injection Friday 11/10 afterhis radiation treatment here. Patient verbalized understanding of these instructions. documented in this encounter Plan of Treatment Upcoming Encounters Date Type Specialty Care Team Description 05/18/2022 Office Visit Radiation Oncology Grace Raymond, CONTROLLER OPERATIONS AND HR MANAGER [facility] RADIATION ONCDEBBIE [place], [place] [address] (Wo rk) 05/18/2022 Infusion Hematology and Oncology documented as of this encounter Visit Diagnoses Not on filedocumented in this encounter Care Teams Mainspring Winder Relationship Specialty Start Date End Date Haja Marshall MD PCP - General Radiation Oncology 09/24/19 01/12/[address] [place] [address] [place] [address] documented as of this encounter
--- OUTSIDE RECORDS SUMMARY | 2022-05-12 01:19 | XMS_ITS | Encounter Summary ---
:1950 Author Organization [facility] Address [facility] [place] [address] Care Team Providers Name Role Phone Tylor William Primary Care Provider Encounter Details Date Type Department Care Team Description 03/29/2020 Orders Only Vascular Surgery at Jana Ricks Pa in in both lower [facility] MANAGER DISCOVERY extremities [facility] [place] [address] VASCULAR SURGERY [phone] [place], [place] [address] Social History Tobacco Use Types [...] Office Visit Radiation Oncology Grace Raymond, MANAGER DISCOVERY [facility] RADIATION ONCDEBBIE [place], [place] [address] (Wo rk) 05/18/2022 Infusion Hematology and Oncology documented as of this encounter Results ROXANNE, legs, multiple levels (04/13/2020 12:51 PM EDT) Component Value Ref Test Analysis Performed At [facility] Range Method Time Signature VB Text Department: Vascular Surgery Lab VASCUBASE Report Patient: [id number] (ALONSO BURKS) CPT: 23532 ICD10: M79.604;M79.605 Referring Physician: JANA RICKS APRN [...] previous study in our vascular lab da tabase for comparison. Electronically Signed by: MARTIN MANLEY on 2020-04-14 07: 56:06 AM VB Text End of Report VASCUBASE Report Specimen (Source) Anatomical Collection Method Collection Time Re ceived Time Location / / Volume Laterality 04/13/2020 12:51 PM EDT Jana Ricks MANAGER DISCOVERY VASCULAR ORDERABLES Performing Organization Address City/State/ZIP Code Phon e Number VASCUBASE documented in this encounter Visit Diagnoses Diagnosis Pain in both lower extremities documented in this encounter Care Teams Radiotelegrapher Relationship Specialty Start Date End Date Tylor William PA PCP - General General Internal Medicine 01/13/20 documented as of this encounter
--- OUTSIDE RECORDS SUMMARY | 2022-05-12 01:19 | XMS_ITS | Encounter Summary ---
:1950 Author Organization [facility] [place] [address] Care Team Providers Name Role Phone Unavailable Primary Care Provider Unavailable Encounter Details Date Type Department Care Team Description 08/04/2019 Notes Only Radiation Oncology at Angelita Garcia, REPAIR SERVICE CLERK [facility] OFFICE OF CARE [address] [place] [phone] Social History Tobacco Use Types Packs/Day Years [...] encounter Progress Notes Angelita Deleon MSW - 08/04/2019 12:44 PM EST Request to meet with pt. Met with pt, and daughter after new patient visit today. Pt requesting information about applying for financial assistance through as he has Medicare only. Gave pt an NSA application. Asked if he has considered applying for a secondary insurance. Pt working with Ni at [facility] re this. Pt reports he will be back in about 6 weeks to meet with Dr. Marshall and to clarify his treatment plans at that time. Gave pt REPAIR SERVICE CLERK contact information and will be a resource to him as needed. documented in this encounter Plan of Treatment Upcoming Encounters Date Type Specialty Care Team Description 05/18/2022 Office Visit Radiation Oncology Grace Raymond, IN SCHOOL SUSPENSION AIDE [facility] RADIATION ONCDEBBIE [place], [place] [address] (Wo rk) 05/18/2022 Infusion Hematology and Oncology documented as of this encounter Visit Diagnoses Not on filedocumented in this encounter
--- OUTSIDE RECORDS SUMMARY | 2022-05-12 01:19 | XMS_ITS | Encounter Summary ---
:1950 Author Organization [facility] [place] [address] Care Team Providers Name Role Phone Haja Marshall MD Primary Care Provider Encounter Details Date Type Department Care Team Description 12/11/2019 Office Visit Radiation Oncology at Haja Marshall M alignant neoplasm of [facility] prostate [address] [place], [place] RADIATION ONCOL OGY [address] [place], [place] [phone] (Wo rk) Social History Tobacco Use Types [...] encounter Progress Notes Haja Marshall MD - 12/11/2019 4:15 PM EDT Images from the original note were not included. RADIATION ONCOLOGY - Weekly On Treatment Visit Note 12/11/19 Haja Marshall MD, MS Radiation Oncology [facility] [phone] (paging cylinder machine operator) Pager #[phone] PATIENT IDENTIFICATION Name Rey Jean Baptiste Date [...] 79.2 Gy in 44 fractions Current Dose: 38.6 Gy in 27 fractions INTERVAL HISTORY Subjective: General - Overall feels very well this week. In great spirits. GI - No diarrhea. - Able to space our nightly urination more - up to 2h between voiding! No dysuria - no longer taking ibuprofen. Still taking flomax 0.8mg qhs along with casodex. Baseline IPSS history is listed below. Prostate Today's Scores 08/04/2019 09/22/2019 Sexual Health Inventory for Men 17 (Mild ED) 23 International Prostate Symptom Score 16 (Moderate LUTS) 13 (Moderate LUTS) Pain: Pain score today is 0/10. MEDICATIONS Medications 12/11/19 1529 Medication Sig Taking? ibuprofen (Advil;Motrin) 200 mg Tablet Take 600 mg by mouth nightly. For dysuria and urinary frequency phenazopyridine (Pyridium) 200 mg Tablet Take 1 tablet by mouth 4 times daily as needed for Pain. Patient not taking: Reported on 11/27/2019 tamsulosin (FLOMAX) 0.4 mg Capsule 0.8 mg nightly. bicalutamide (CASODEX) 50 mg Tablet Take 1 tablet by mouth daily. IMAGING I have personally reviewed this patient's interval portal imaging to confirm accurate positioning and alignment which matches the patient's original approved treatment planning images. EXAM: There were no vitals taken for this visit. Constitutional: he appears well-developed and well-nourished. No [...] Rec continue flomax 0.8mg qhs, ibuprofen 600mg qhs prn. Followup: Return to clinic next week for on treatment check. documented in this encounter Plan of Treatment Upcoming Encounters Date Type Specialty Care Team Description 05/18/2022 Office Visit Radiation Oncology Grace Raymond, PRESIDENT AND CHIEF OPERATING OFFICER [facility] RADIATION ONCDEBBIE [place], [place] [address] (Wo rk) 05/18/2022 Infusion Hematology and Oncology documented as of this encounter Visit Diagnoses Diagnosis Malignant neoplasm of prostate documented in this encounter Care Teams Taker Off Hemp Fiber Relationship Specialty Start Date End Date Haja Marshall MD PCP - General Radiation Oncology 09/24/19 01/12/[address] [place] [address] [place] [address] documented as of this encounter
--- OUTSIDE RECORDS SUMMARY | 2022-05-12 01:19 | XMS_ITS | Encounter Summary ---
:1950 Author Organization [facility] [place] [address] Care Team Providers Name Role Phone Haja Marshall MD Primary Care Provider Encounter Details Date Type Department Care Team Description 01/12/2020 Telephone Radiation Oncology at Clara Hameed RN [address] [phone] Social History Tobacco Use [...] Telephone Encounter - Clara Hameed RN - 01/12/2020 8:40 AM EDT Radiation Oncology Nurse Telephone Note [facility] [place] [place] Background: pt completed radiation treatment 01/05/20 for prostate can Patient calls clinic this morning c/o severe dysuria a 12 out of 10. It was at its worst last night. It began a day or so after the radiation treatments were completed. He denies hematuria. He also c/o abd cramping that comes and goes and wicked gas. He denies diarrhea and has about 2 normal stools a day. He is as concerned about this as long as it is an expected side effect. Pt was reminded that even though he completed his radiation treatment 1 week ago, the radiation is still working for a couple more weeks and these side effects are not unusual. Dr Marshall informed and he ordered UA and start pyridium. Pt informed of this. He will go to [facility] lab today at 0930 for UA and then bean picker machine operator pyridium. Pharmacist at [facility] states that his insurance will not cover the prescription since there is a OTC version. She has the Azo for him and will explain that he will need to to take two tabs to be equal to the 1 prescription tab. Pt informed that we should have some preliminary report on his UA this afternoon. Dr Marshall informed of UA results in scanned docs that showed an indication for C&S ( trace blood, moderate bacteria) He prefers to wait for results of C&S before prescribing antibiotic if pt is afebrile and is otherwise feeling ok. I called pt back with this information. He states he does not feel feverish and agrees to wait to hear from us with the final report. He plans to bean picker machine operator pyridium this evening and start that right away. He was instructed to call clinic if he does develop fever or shaking chill. Patient verbalized understanding of these instructions. documented in this encounter Plan of Treatment Upcoming Encounters Date Type Specialty Care Team Description 05/18/2022 Office Visit Radiation Oncology Grace Raymond APRN [facility] RADIATION [place], [place] [address] (Wo rk) 05/18/2022 Infusion Hematology and Oncology documented as of this encounter Visit Diagnoses Diagnosis Malignant neoplasm of prostate Dysuria documented in this encounter Care Teams Director Of Health Education Relationship Specialty Start Date End Date Haja Marshall MD PCP - General Radiation Oncology 09/24/19 01/12/[address] [place] [address] [place] [address] documented as of this encounter
--- OUTSIDE RECORDS SUMMARY | 2022-05-12 01:19 | XMS_ITS | Encounter Summary ---
:1950 Author Organization [facility] [place] [address] Care Team Providers Name Role Phone Ursula Jacob Primary Care Provider Reason for Referral Diagnostic Test (Routine) - Closed Specialty Diagnoses / Procedures Referred By Contact Refer red To Contact Radiology Diagnoses Critical lower limb ischemia Pre-procedural examination Tom Mahoney MD [facility] Interventionl Rad Procedures VS Arteriogram Lower Extremity Vascular Surgery [facility] [place] [address] [place] [address] Referral ID Status Reason Start Date Expiration Date Visits V isits Requested Authorized [id number] Closed Specialty 03/23/2021 09/22/2022 1 1 Service Requested Encounter Details Date Type Department Care Team Description 03/23/2021 Orders Only Vascular Surgery at Jolanta Sexton lower limb ischemia; [facility], RN [place] [address] Social History Tobacco Use Types [...] Team Description 05/18/2022 Office Visit Radiation Oncology Mandi Grace Ashley, GIN INSPECTOR [facility] RADIATION ONCDEBBIE [facility], [place] [address] (Wo rk) 05/18/2022 Infusion Hematology and Oncology documented as of this encounter Results VS Arteriogram Lower Extremity Vascular Surgery (04/26/2021 [...] ??7 Fr Indications for the procedure: Mr Markel is a 71M with a hx of [...] was inserted and upsized to a 5 Citizen [place] sheat h over a J-wire. A 5F [...] This was then post-d ilated with a [id number] Irving balloon proximally and a [id number] Irving balloon distally. A completion angiogram was obtained [...] who have questions please contact the health critical care rn that requested your imaging first. ? Electronically signed by: Tom Mahoney MD, [facility] ([phone]), at 05/09/2021 10:15 AM Procedure Note Tom Mahoney MD - 05/09/2021Formatt [...] as documented by the sedation RN. Tom Talavera. MD Maru, [place] Section of Vascular Surgery Vascular Surgery [...] 7 Fr Indications for the procedure: Mr Jean Baptiste is a 71M with a hx of [...] was inserted and upsized to a 5 [place] sheat h over a J-wire. A 5F [...] This was then post-d ilated with a [id number] Irving balloon proximally and a [id number] Irving balloon distally. A completion angiogram was obtained [...] ho have questions please contact the health critical care rn that requested your imaging first. Tom Mahoney MD IMG IR ORDERABLES Creatinine (04/26/2021 7:56 AM EDT) athologist Signature Creatinine 0.82 0.80 - [place]AN [place] 1.50 mg/dL [facility] Estimated GFR 89 >=60 [place]AN [place] mL/min/1.7 [facility] 3 ?? [facility] Comment: This patient? s estimated glomerular [...] Organization Address City/State/ZIP [place] [address] documented in this encounter Visit Diagnoses Diagnosis Critical lower limb ischemia Unspecified circulatory system disorder Pre-procedural examination Preoperative examination, unspecified Critical lower limb ischemia - Primary Unspecified circulatory system disorder Pre-procedural examination Preoperative examination, unspecified documented in this encounter Care Teams Condemnation Engineer Relationship Specialty Start Date End Date Ursula Jacob PCP - General Family Medicine 03/16/21 [address] [place] [address] documented as of this encounter
--- OUTSIDE RECORDS SUMMARY | 2022-05-12 01:19 | XMS_ITS | Encounter Summary ---
:1950 Author Organization [facility] Address [address] [place] [address] Care Team Providers Name Role Phone Haja Marshall MD Primary Care Provider Encounter Details Date Type Department Care Team Description 01/05/2020 Notes Only Radiation Oncology at Sherry Glass RN [address] [phone] Social History Tobacco Use [...] documented as of this encounter Progress Notes Sherry Glass RN - 01/05/2020 2:30 PM EDT Radiation Oncology Nursing Completion of Treatment Note Pt completed 25 Fxs totaling 4500 cGY to pelvis, entire SV and prostate, 38 Fxs totaling 6840 cGy toproximal SV and prostate and 44 Fxs totaling 7920 cGy to prostate for prostate cancer. . Side effects/problems noted today: No diarrhea, cramping. Denies dysuria. Stable nocturia. Feels well. Teaching and discharge instructions reviewed: Instructed patient to call prior to follow up appointment with any related concerns. Expected follow up/referrals: End of treatment follow up in January with [facility]. Patient has our contact numbers Patient/family response to instructions: Patient verbalized understanding of these instructions. documented in this encounter Plan of Treatment Upcoming Encounters Date Type Specialty Care Team Description 05/18/2022 Office Visit Radiation Oncology Grace aRymond, SLUDGE MILL OPERATOR [facility] RAD[place]ATION [place], [place] [address] (Wo rk) 05/18/2022 Infusion Hematology and Oncology documented as of this encounter Visit Diagnoses Not on filedocumented in this encounter Care Teams Customer Marketing Manager Relationship Specialty Start Date End Date Haja Marshall MD PCP - General Radiation Oncology 09/24/19 01/12/[address] [place] [address] [place] [address] documented as of this encounter
--- OUTSIDE RECORDS SUMMARY | 2022-05-12 01:19 | XMS_ITS | Encounter Summary ---
:1950 Author Organization [facility] [place] [address] Care Team Providers Name Role Phone Haja Marshall MD Primary Care Provider Encounter Details Date Type Department Care Team Description 12/18/2019 Office Visit Radiation Oncology at Haja Marshall M alignant neoplasm of [facility] prostate [address] [place], [place] RADIATION ONCOL OGY [address] [place], [place] [phone] (Wo rk) Social History Tobacco Use Types [...] encounter Progress Notes Haja Marshall MD - 12/18/2019 4:15 PM EDT Images from the original note were not included. RADIATION ONCOLOGY - Weekly On Treatment Visit Note 12/18/19 Haja Marshall MD, MS Radiation Oncology [facility] [phone] (paging signal tower operator) Pager #[phone] PATIENT IDENTIFICATION Name Rey Jean Baptiste Date [...] 79.2 Gy in 44 fractions Current Dose: 47.6 Gy in 32 fractions INTERVAL HISTORY Subjective: General - Overall feels very well this week. In great spirits. GI - More cramping. Not following LRD (eating beans, peas, etc.) - Nocturia stable at q2h but more notable dysuria in the evening hours. Still taking flomax 0.8mgqhs along with casodex. Baseline IPSS history is listed below. Prostate Today's Scores 08/04/2019 09/22/2019 Sexual Health Inventory for Men 17 (Mild ED) 23 International Prostate Symptom Score 16 (Moderate LUTS) 13 (Moderate LUTS) Pain: Pain score today is 0/10. MEDICATIONS Medications 12/18/19 1614 Medication Sig Taking? ibuprofen (Advil;Motrin) 200 mg [...] planned. Lupron next due week of 02/01/20. Cramping / RT enteritis: LRD discussed. Will ask RD to t/b w him as well. LUTS / dysuria: Rec continue flomax 0.8mg qhs, aleve prior to RT in the afternoons. Followup: Return to clinic next week for on treatment check. documented in this encounter Plan of Treatment Upcoming Encounters Date Type Specialty Care Team Description 05/18/2022 Office Visit Radiation Oncology Grace Raymond, HANDLE MACHINE OPERATOR [facility] RADIATION ONCDEBBIE [place], [place] [address] (Wo rk) 05/18/2022 Infusion Hematology and Oncology documented as of this encounter Visit Diagnoses Diagnosis Malignant neoplasm of prostate documented in this encounter Care Teams Eastern Philosophy Professor Relationship Specialty Start Date End Date Haja Marshall MD PCP - General Radiation Oncology 09/24/19 01/12/[address] [place] [address] [place] [address] documented as of this encounter
--- OUTSIDE RECORDS SUMMARY | 2022-05-12 01:19 | XMS_ITS | Encounter Summary ---
:1950 Author Organization [facility] [address] Care Team Providers Name Role Phone Tylor William Primary Care Provider Reason for Referral Diagnostic Test (Routine) - Closed Specialty Diagnoses / Procedures Referred By Contact Refer red To Contact Radiology Diagnoses PAD (peripheral artery disease) Intermittent claudication Luis Barnard MD [facility] Rad Ct Scan Procedures CT Angiogram Aortic Lower Extremity Runoff [facility] [place] [address] [place] [address] Referral ID Status Reason Start Date Expiration Date Visits V isits Requested Authorized [id number] Closed Specialty 10/05/2020 04/04/2022 1 1 Service Requested Reason for Visit Reason Comments Peripheral Arterial Disease Follow-up Encounter Details Date Type Department Care Team Description 10/05/2020 Office Visit Vascular Surgery at Luis Barnard PA D (peripheral artery disease); [facility] Intermittent claudication [facility] [address] [place] CARDIOLOGY DEPT [address] [place] [address] Social History Tobacco Use Types [...] Sign Reading Time Taken Comments Blood Pressure 132/74 10/05/2020 3:28 PM EST Pulse 75 10/05/2020 3:28 PM EST Temperature 36.7 ??C (98.1 ??F) 10/05/2020 3:28 PM EST Respiratory Rate 13 10/05/2020 3:28 PM EST Oxygen Saturation 100% 10/05/2020 3:28 PM EST Inhaled Oxygen Concentration - - Weight 74.8 kg (165 lb) 10/05/2020 3:28 PM EST Height 175.3 cm (5' 9) 10/05/2020 3:28 PM EST Body Mass Index 24.37 10/05/2020 3:28 PM EST documented in this encounter Progress Notes Luis Barnard MD - 10/05/2020 3:30 PM EST Images from the original note were not included. [place] [address] CARDIOVASCULAR MEDICINE OUTPATIENT CONSULTATION Alonso Burks [id number] 10/05/2020 REFERRING PROVIDER: Tylor William CHIEF COMPLAINT: Chief Complaint Patient presents with ??? Peripheral Arterial Disease ??? Follow-up PROBLEM LIST Patient Active Problem List Diagnosis ??? Primary malignant neoplasm of prostate with high risk of recurrence due to [place] score of 8 to10 and PSA greater than 20 ??? Malignant neoplasm of prostate HISTORY OF PRESENT ILLNESS: Mr. Burks is a very pleasant 70-year-old gentleman with a history of stage IIIc prostate cancer status post pelvic radiation and now on neoadjuvant Lupron therapy, bilateral peripheral artery diseasewho presents for follow-up. I met him in April 13, 2020 for evaluation of lower extremity pain. He had evidence of claudication as well as nonvascular pain. ABIs at that time showed moderately severe bilateral PAD. We initiated secondary prevention measures with aspirin 81 mg daily and atorvastatin 40 mg daily as well as discussed walking program. He reports that he tries to be active on an everyday basis but he continues to have bilateral claudication, which he does feel like is lifestyle limiting. He especially has significant symptoms with stairs or when he is carrying something and walking at the same time. He has to stop multiple times per day and rest because of bilateral claudication. He hasno rest pain. He has no ulcerations. He denies nighttime awakenings. He has no chest pain or shortness of breath, PND, orthopnea, lower extreme edema, presyncope or syncope. REVIEW OF SYSTEMS: All others negative except [...] by mouth daily. 90 tablet 3 ??? tamsulosin (FLOMAX) 0.4 mg Capsule 0.8 mg nightly. 11 ??? ibuprofen (Advil;Motrin) 200 mg Tablet Take 600 mg by mouth every 6 hours as needed. For dysuriaand urinary frequency No current facility-administered medications for this visit. ALLERGIES: Patient has no known allergies. PHYSICAL EXAMINATION: Vital Signs: BP 132/74 Pulse 75 Temp 36.7 ??C (98.1 ??F) Resp 13 Ht 175.3 cm (5' 9) Wt 74.8 kg (165 lb) SpO2 100% BMI 24.37 kg/m?? Exam Details: General: Pleasant 70 y.o. man in no acute distress Eyes: No scleral icterus ENT: Moist mucous membranes Heart: Regular rate and rhythm, normal S1/S2, no murmurs/rubs/gallops appreciated Lungs: Clear to ascultation bilaterally Abdomen: Soft, non-tender, non-distended, normoactive bowel sounds noted. Extremities: No peripheral edema noted. No ulcerations noted. Vessels: No carotid bruits appreciated. Arterial exam (R/L): Femoral 1/0, popliteal 0/0, DP 0/0 Neuro: No gross abnormalities noted Psych: Alert and oriented 3 x, normal affect DATA PERSONALLY REVIEWED: Last 3 wbc, hgb, hct plt No results for input(s): WBC, HGB, HCT, PLATELET in the last 7068 hours. Last 3 Lytes Recent Labs 04/13/20 1359 NA 140 K 5.3* CL 105 CO2 26 BUN 21* CREATININE 0.91 ?? ROXANNE 04/13/2020: ? Right ?Pressure (mm Hg) ?? ROXANNE ??Waveform [...] with iliac disease. ASSESSMENT AND PLAN: #1 Bilateral lifestyle limiting claudication Mr. Burks is a very pleasant 70-year-old gentleman with history of prostate cancer who presents for follow-up bilateral peripheral artery disease with less limiting claudication. Despite being very active and splotches he can be, he continues to have bilateral claudication, left greater than right, which does limit his daily activities. Discussed trial of cilostazol to see if this improves his symptoms. He does not have rest pain at this point or ulceration. I would like to see if he will improve with cilostazol. Discussed the side effect of diarrhea and to decrease the dose to 50 mg twice daily if he begins to have diarrhea. If his symptoms do not improve with cilostazol, then we will plan to repeat ABIs and CTA with runoff for procedural planning. Plan: 1. Start cilostazol 100 mg twice daily. 2. Return to clinic in 3 months. ABIs and CTA with runoff if symptoms do not improve with cilostazol. Thank you for allowing me to participate in the care of your patient. Please do not hesitate to contact me with any questions or concerns. Luis Barnard MD, MPH, VI, [facility] [employer]erEqu[employer] [place] [address] documented in this encounter Plan of Treatment Upcoming Encounters Date Type Specialty Care Team Description 05/18/2022 Office Visit Radiation Oncology Grace Raymond, NEW ACCOUNTS CLERK [facility] RADIATION ONCDEBBIE [place], [place] [address] (Wo rk) 05/18/2022 Infusion Hematology and Oncology documented as of this encounter Results CT Angiogram Aortic Lower Extremity Runoff (03/22/2021 10:47 AM EDT) Anatomical Region Laterality Modality Abdomen Computed Tomography Specimen (Source) Anatomical Location Collection Method / Collectio n Time Received Time / Laterality Volume Impressions 03/22/2021 11:58 AM EDT 1. ??Extensive bilateral occlusive disea se, as described above. Thank you for letting us participate in the care of this patient. ??If you are a health care provider and have any questi ons regarding this report, please contact the number below. ??For patients who have questions please contact the health occasional caregiver that requested your imaging first. ? Electronically signed by: Kodi tobin MD, [facility] ([phone]), at 03/22/2021 11:58 AM Narrative 03/22/2021 11:58 AM EDT EXAMINATION: CT ANGIOGRAM AORTA LOWER EXTREMITY RUNOFF CLINICAL HISTORY: bilateral lifestylie l imiting claudication ?level of disease TECHNIQUE: Helical CTA of the abdomen, p martha and lower extremities was performed following the intravenous admi nistration of contrast. Administered 150.0 ml of OMNIPAQUE 350.00 mg/ml. Maxi mum intensity projection (MIP) were reformatted. 3-D images were generated o n an independent workstation. COMPARISON: None FINDINGS: VASCULAR FINDINGS Abdominal aorta: Mild ectasia in the inf rarenal abdominal aorta Celiac: Critical stenosis severe stenosi s at origin. Then diffusely aneurysmal, measuring up to 9 mm. SMA: No stenosis. Right renal artery: 2 patent RIGHT renal arteries Left renal artery: 3 patent LEFT renal a rteries MARLIN: No stenosis. RIGHT LOWER EXTREMITY Common iliac artery: Proximally aneurysm al, measuring 17 mm. Widely patent External iliac artery: Widely patent. Internal iliac artery: Proximal severe t o critical stenosis, then patent Common femoral artery: Widely patent. Superficial femoral artery: Approximate 6 cm segmental occlusion distally. Proximal to this, multifocal moderate an d severe stenoses. Reconstituted by collateral vessels at the level of the a dductor canal Profundus femoral artery: Widely patent. Popliteal artery: Widely patent Anterior tibial artery: Widely patent. Tibio-peroneal trunk: Occluded Posterior tibial artery: Occluded proxim ally. Then reconstituted by collateral vessels and patent to the foot Peroneal artery: Occluded proximally, th en reconstituted faintly by collateral vessels and patent to the ankle Dorsalis pedis: Widely patent. Plantar arteries: Widely patent. LEFT LOWER EXTREMITY Common iliac artery: Aneurysmal, measuri ng up to 18 mm with severe stenosis proximally External iliac artery: Widely patent. Internal iliac artery: Occluded proximal ly, then reconstituted by collateral vessels Common femoral artery: Widely patent. Superficial femoral artery: Occluded. Profundus femoral artery: Widely patent. Popliteal artery: Patent after reconstit ution by collateral vessels Anterior tibial artery: Widely patent an d main vessel supplying flow to the foot. Tibio-peroneal trunk: Occluded Posterior tibial artery: Occluded Peroneal artery: Faintly reconstituted p roximally and faintly patent to the ankle Dorsalis pedis: Widely patent. Plantar arteries: Occluded/nonopacified NON-VASCULAR FINDINGS Lower chest: Normal. Liver: Scattered, varied sized low-atten uation regions/lesions, likely cysts. Bile ducts: Nondilated. Gallbladder: No calcified gallstones. No rmal caliber wall. Pancreas: Normal attenuation without selene geri dilatation. Spleen: Normal. Adrenals: Normal. Kidneys: Symmetric enhancement. 2 small to definitely characterize 7 mm low-attenuation lesion extending from th e upper pole of the LEFT kidney. This may be a cyst. Urinary Bladder: Moderate diffuse bladde r wall thickening Lymph Nodes: No enlarged lymph nodes. Bowel: Nondilated, no wall thickening. ? ? Peritoneum and mesentery: No ascites, fr ee air, or loculated fluid collection. No mesenteric inflammation. Reproductive Organs: Enlarged prostate g land with metallic fiducial implants Abdominal Wall: No hernia Osseous structures: No suspicious findin gs. Procedure Note Kodi Paul MD - 03/22/2021Form atting of this note might be different from the original. EXAMINATION: CT ANGIOGRAM AORTA LOWER EX TREMITY RUNOFF CLINICAL HISTORY: bilateral lifestylie l imiting claudication ?level of disease TECHNIQUE: Helical CTA of the abdomen, p martha and lower extremities was performed following the intravenous admi nistration of contrast. Administered 150.0 ml of OMNIPAQUE 350.00 mg/ml. Maxi mum intensity projection (MIP) were reformatted. 3-D images were generated o n an independent workstation. COMPARISON: None FINDINGS: VASCULAR FINDINGS Abdominal aorta: Mild ectasia in the inf rarenal abdominal aorta Celiac: Critical stenosis severe stenosi s at origin. Then diffusely aneurysmal, measuring up to 9 mm. SMA: No stenosis. Right renal artery: 2 patent RIGHT renal arteries Left renal artery: 3 patent LEFT renal a rteries MARLIN: No stenosis. RIGHT LOWER EXTREMITY Common iliac artery: Proximally aneurysm al, measuring 17 mm. Widely patent External iliac artery: Widely patent. Internal iliac artery: Proximal severe t o critical stenosis, then patent Common femoral artery: Widely patent. Superficial femoral artery: Approximate 6 cm segmental occlusion distally. Proximal to this, multifocal moderate an d severe stenoses. Reconstituted by collateral vessels at the level of the a dductor canal Profundus femoral artery: Widely patent. Popliteal artery: Widely patent Anterior tibial artery: Widely patent. Tibio-peroneal trunk: Occluded Posterior tibial artery: Occluded proxim ally. Then reconstituted by collateral vessels and patent to the foot Peroneal artery: Occluded proximally, th en reconstituted faintly by collateral vessels and patent to the ankle Dorsalis pedis: Widely patent. Plantar arteries: Widely patent. LEFT LOWER EXTREMITY Common iliac artery: Aneurysmal, measuri ng up to 18 mm with severe stenosis proximally External iliac artery: Widely patent. Internal iliac artery: Occluded proximal ly, then reconstituted by collateral vessels Common femoral artery: Widely patent. Superficial femoral artery: Occluded. Profundus femoral artery: Widely patent. Popliteal artery: Patent after reconstit ution by collateral vessels Anterior tibial artery: Widely patent an d main vessel supplying flow to the foot. Tibio-peroneal trunk: Occluded Posterior tibial artery: Occluded Peroneal artery: Faintly reconstituted p roximally and faintly patent to the ankle Dorsalis pedis: Widely patent. Plantar arteries: Occluded/nonopacified NON-VASCULAR FINDINGS Lower chest: Normal. Liver: Scattered, varied sized low-atten uation regions/lesions, likely cysts. Bile ducts: Nondilated. Gallbladder: No calcified gallstones. No rmal caliber wall. Pancreas: Normal attenuation without selene geri dilatation. Spleen: Normal. Adrenals: Normal. Kidneys: Symmetric enhancement. 2 small to definitely characterize 7 mm low-attenuation lesion extending from th e upper pole of the LEFT kidney. This may be a cyst. Urinary Bladder: Moderate diffuse bladde r wall thickening Lymph Nodes: No enlarged lymph nodes. Bowel: Nondilated, no wall thickening. Peritoneum and mesentery: No ascites, fr ee air, or loculated fluid collection. No mesenteric inflammation. Reproductive Organs: Enlarged prostate g land with metallic fiducial implants Abdominal Wall: No hernia Osseous structures: No suspicious findin gs. IMPRESSION 1. Extensive bilateral occlusive disease , as described above. Thank you for letting us participate in the care of this patient. If you are a health care provider and have any questi ons regarding this report, please contact the number below. For patients w ho have questions please contact the health occasional caregiver that requested your imaging first. Luis Barnard MD IMG CT ORDERABLES ROXANNE, legs, multiple levels (03/22/2021 9:40 AM EDT) Component Value Ref Test Analysis Performed At [facility] Range Method Time Signature VB Text Department: Vascular Surgery Lab [facility]AS[facility] Report Patient: [id number] (ALONSO BURKS) CPT: 86254 ICD10: I73.9 Referring Physician: LUIS BARNARD ?? Phone: Indications: LT great toe numbness, ? peripheral perfusion Diabetes mellitus: No ICD10 Diagnosis Code: I73.9 Findings: Right ?Pressure (mm Hg) ?? ROXANNE ??Waveform ?TBI ?? Brachial Artery ?140 ? Dorsalis Pedis (Ankle) Arter y ?59 ?0.42 ??Monophasic ? Posterior Tibial (Ankle) Art namarta ??72 ?0.51 ??Norman- Biphasic ? Great Toe ?40 ? 0.29 ?? Left ? Pressure (mm Hg) ?? ROXANNE ??Waveform ? TBI ?? Brachial Artery ?140 ? Dorsalis Pedis (Ankle) Arter y ?47 ?0.34 ??Monophasic ? Posterior Tibial (Ankle) Art namrata ?Absent ? Great Toe ?19 ?0.14 ?? Interpretation: RIGHT: Moderate lower extremity arterial occlusive disease. Toe-brachial index substantially lower than ankle-brachial index indicates presence of moderately severe arterial occlusive di sease in the foot. No significant change compared to previous exam; however, ROXANNE were previou sly in the moderately severe category. LEFT: Severe lower extremity arterial oc clusive disease. No significant change compared to previous exam; h owever, ROXANNE were previously in the moderately severe category. Posterior tibial artery appears occluded by limi jagruti duplex at the ankle. This is a new finding from the previous exam. Previous ABIs with change from previous value: Date ?RIGHT DP ?? RIGHT PT ?? RT GR TOE ??RT Sec T OE ??0.37 ? 0.48 ? ---- ? ---- Current ? 0.42(+.05) 0.51(+.03) 0.29 ? ---- Date ?LEFT DP ?LEFT PT ?LT GR TOE LT Sec T OE ??0.42 ? 0.38 ? ---- ? ---- Current ? 0.34(-.08) ---- ? 0.14 ? ---- Electronically Signed by: LUIS BARNARD on 2021-03-24 07: 58:41 AM VB Text End of Report [facility] Report Specimen (Source) Anatomical Collection Method Collection Time Re ceived Time Location / / Volume Laterality 03/22/2021 9:40 AM EDT Luis Barnard MD VASCULAR ORDERABLES Performing Organization Address City/State/ZIP Code Phon e Number [facility] documented in this encounter Visit Diagnoses Diagnosis PAD (peripheral artery disease) Peripheral vascular disease, unspecified Intermittent claudication Peripheral vascular disease, unspecified documented in this encounter Care Teams Meteorologist Liaison Relationship Specialty Start Date End Date Tylor William PA PCP - General General Internal Medicine 01/13/20 documented as of this encounter
--- OUTSIDE RECORDS SUMMARY | 2022-05-12 01:19 | XMS_ITS | Encounter Summary ---
:1950 Author Organization [facility] Address [facility] [place] [address] Care Team Providers Name Role Phone Haja Marshall MD Primary Care Provider Reason for Visit Reason Comments Injections Lupron Treatment/Therapy Plan Authorization (Routine) - Closed Specialty Diagnoses / Procedures Referred By Contact Refer red To Contact Diagnoses Primary malignant neoplasm of prostate with high risk of recurrence due to [place] score of 8 to 10 and PSA greater than 20 Haja Marshall MD [facility] Rad Onc Office [address] [place] [address] RADIATION ONCOLOGY [place], [place] [phone] Fax: Referral ID Status Reason Start Date Expiration Date Visits Requ ested Visits Authorized [id number] Closed 08/04/2019 08/03/2020 1 1 Encounter Details Date Type Department Care Team Description 11/10/2019 Infusion Hematology Oncology at [facility] malignant neoplasm [facility] of prostate with high risk [address] [place] [address] of recurrence due to [place], [place] [phone] score of 8 to 10 and PSA [phone] greater than 20 Social History Tobacco Use [...] encounter Progress Notes Carol Anguiano RN - 11/10/2019 12:30 PM EST Infusion Note Diagnosis:Prostate Cancer [...] 05/18/2022 Office Visit Radiation Oncology Grace Raymond, PHYSICIAN/INTERNIST [facility] RADIATION ONCDEBBIE [place], [place] [address] (Wo rk) 05/18/2022 Infusion Hematology and Oncology documented as of this encounter Visit Diagnoses Diagnosis Primary malignant neoplasm of prostate w ith high risk of recurrence due to [place] score of 8 to 10 and PSA greater than 20 documented in this encounter Administered Medications Inactive Administered Medications - up to 3 most recent administrations Medication Order MAR Action Action Date Dose Rate Site leuprolide (LUPRON DEPOT) Given 11/10/2019 12:40 PM 22.5 mg Right Gluteal injection 22.5 mg EST 22.5 mg, Intramuscular, ONCE, 1 dose, On 11/10/19 at 1230, Routine documented in this encounter Care Teams Equipment Monitor Phototypesetting Relationship Specialty Start Date End Date Haja Marshall MD PCP - General Radiation Oncology 09/24/19 01/12/[address] [place] [address] [place] [address] documented as of this encounter
--- OUTSIDE RECORDS SUMMARY | 2022-05-12 01:19 | XMS_ITS | Encounter Summary ---
:1950 Author Organization [facility] [place] [address] Care Team Providers Name Role Phone Tylor William Primary Care Provider Encounter Details Date Type Department Care Team Description 02/04/2020 Telephone Radiation Oncology a t [facility] Kwame Rodriguez [address] [place] [phone] Social History Tobacco Use Types [...] Description 05/18/2022 Office Visit Radiation Oncology Grace Raymnod APRN [facility] RADIATION ONCDEBBIE [place], [place] [address] (Wo rk) 05/18/2022 Infusion Hematology and Oncology documented as of this encounter Visit Diagnoses Not on filedocumented in this encounter Care Teams Actuary Relationship Specialty Start Date End Date Tylor William PA PCP - General General Internal Medicine 01/13/20 documented as of this encounter
--- OUTSIDE RECORDS SUMMARY | 2022-05-12 01:19 | XMS_ITS | Encounter Summary ---
:1950 Author Organization [facility] Address [address] [facility] [place] [address] Care Team Providers Name Role Phone Haja Marshall MD Primary Care Provider Encounter Details Date Type Department Care Team Description 11/24/2019 Notes Only Radiation Oncology at Sherry Glass RN [address] [phone] Social History Tobacco Use [...] encounter Progress Notes Sherry Glass RN - 11/24/2019 4:58 PM EST Radiation Oncology Nursing on Treatment Note Patient has received 2520 cGy to the pelvis for treatment of prostate cancer. Side effects that patient is experiencing: Urinary frequency /nocturia. Patient also reports left flank pain. Assessment: He has been taking ibuprofen 400 mg with his evening meal Has picked up Azo but has not taken any as he has not had any dysuria since last week. Rates dysuria 0/10. Nocturia remains unchanged. Reports that he has been having non radiating left flank pain for last few weeks that has not worsened. Denies nausea, vomiting, breathing changes. With reduced fiber/roughage diet bowels are now moving once daily wnl. Anticipatory guidance/ interventions: Instructed to take ibuprofen 600 mg with evening meal per Dr. Marshall's note. He was in agreement with this plan. He did not want to wait for any possible recommendations from Dr. Marshall regarding the flank pain as it is not new or worse. Other: Dr. Marshall updated regarding above and recommended that patient call PCP regarding flank pain. Plan: Inform patient to contact PCP regarding flank pain per Dr. Marshall. Nursing otv daily prn. Weekly MD otv with Dr. Marshall every . documented in this encounter Plan of Treatment Upcoming Encounters Date Type Specialty Care Team Description 05/18/2022 Office Visit Radiation Oncology Grace Raymond, COIL PLACER [facility] RADIATION ONCDEBBIE [place], [place] [address] (Wo rk) 05/18/2022 Infusion Hematology and Oncology documented as of this encounter Visit Diagnoses Not on filedocumented in this encounter Care Teams Paper Deliverer Relationship Specialty Start Date End Date Haja Marshall MD PCP - General Radiation Oncology 09/24/19 01/12/[address] [place] [address] [place] [address] documented as of this encounter
--- OUTSIDE RECORDS SUMMARY | 2022-05-12 01:19 | XMS_ITS | Encounter Summary ---
:1950 Author Organization [facility] [place] [address] Care Team Providers Name Role Phone Tylor William Primary Care Provider Encounter Details Date Type Department Care Team Description 08/27/2020 Office Visit Radiation Oncology at Jennifer Manning Ma lignant neoplasm of [facility] MEASUREMENT AND SENSING TECHNICIAN prostate [address] [place] [address] RADIATION ONCOLOGY [phone] [place], [place] [address] Social History Tobacco Use Types [...] Sign Reading Time Taken Comments Blood Pressure 154/68 08/27/2020 2:29 PM EST Pulse 97 08/27/2020 2:29 PM EST Temperature 36.8 ??C (98.3 ??F) 08/27/2020 2:29 PM EST Respiratory Rate 20 08/27/2020 2:29 PM EST Oxygen Saturation 99% 08/27/2020 2:29 PM EST Inhaled Oxygen Concentration - - Weight 76.8 kg (169 lb 6.4 oz) 08/27/2020 2:29 PM EST Height 175.3 cm (5' 9) 08/27/2020 2:29 PM EST Body Mass Index 25.02 08/27/2020 2:29 PM EST documented in this encounter Patient Instructions Patient InstructionsJennifer Manning APRN - 08/27/2020 2:30 PM EST He will return in 12 weeks with labs prior and lupron documented in this encounter Progress Notes Jennifer Manning APRN - 08/27/2020 2:30 PM EST Images from the original note were not included. RADIATION ONCOLOGY - Follow up Visit Note 08/27/20 PATIENT IDENTIFICATION Name Rey Jean Baptiste Date [...] Subjective: General - Overall continues to feel okay. He continues to work despite his lack of energy. He just pushes through- he has no stamina. GI - No diarrhea or cramping. Blood or constipation. - Nocturia 3x/nt which is essentially unchanged from his pre-RT baseline. He continues with hot flashes,shane at night. These are very frustrating to him. No blood in his urine . His weight is up and he is carrying it in his abdomen. He has lost muscle mass as well. The most annoying symptom he experiences is leg cramps. They come and go. If he sits for five minutes they are gone. He has no depression - no mood swings. Baseline IPSS history is listed below. Prostate Today's Scores 08/04/2019 09/22/2019 02/05/2020 Sexual Health Inventory for Men 17 (Mild ED) 23 21 (Mild ED) International Prostate Symptom Score 16 (Moderate LUTS) 13 (Moderate LUTS) 13 (Moderate LUTS) Pain: Pain score today is 0/10. MEDICATIONS Medications 08/27/20 1431 Medication Sig Taking? atorvastatin (Lipitor) 40 mg Tablet Take 1 tablet by mouth daily. Yes tamsulosin (FLOMAX) 0.4 mg Capsule 0.8 mg nightly. Yes ibuprofen (Advil;Motrin) 200 mg Tablet Take 600 mg by mouth every 6 hours as needed. For dysuria andurinary frequency IMAGING / LABS PSA 06/2018 - 10.7 06/2019 - 13.5 12/2019 - 0.02 05/18/20 - <0.01 08/18/20 <0.01 T 12/2019 - 7.9 (lab nl >240) 05/18/20 - <7.0 08/18/20 8.8 CBC 08/18/20 WBC 7.37 H/H 13.7/43.1 PLts 205 EXAM: BP 154/68 (Patient Position: Sitting) Pulse 97 Temp 36.8 ??C (98.3 ??F) (Temporal) Resp 20 Ht 175.3 cm (5' 9) Wt 76.8 kg (169 lb 6.4 oz) SpO2 99% BMI 25.02 kg/m?? Constitutional: he appears well-developed and well-nourished. No distress. Rectal deferred PSA is undetectable. Performance Status: KPS Score ECOG Grade Definition 90-100 0 Fully active, able to carry on all pre-disease performance without restriction x 70-80 1 Restricted in physically strenuous activity but ambulatory and able to carry out work of alight or sedentary nature, e.g., light house work, [...] treatment today. He was pleased that hisPSA remains so low. He will re evaluate whether or not to continue with lupron at each visit. LUTS / dysuria: Rec continue flomax 0.4-0.8mg qhs, has not had any dysuria. This is resolved Followup: He will return in 12 weeks with labs prior for his next lupron injection. He is comfortable with this plan. documented in this encounter Plan of Treatment Upcoming Encounters Date Type Specialty Care Team Description 05/18/2022 Office Visit Radiation Oncology Grace Raymond APRN [facility] RADIATION ONCDEBBIE [place], [place] [address] (Wo rk) 05/18/2022 Infusion Hematology and Oncology documented as of this encounter Visit Diagnoses Diagnosis Malignant neoplasm of prostate documented in this encounter Care Teams Jumpbasting Canvas Baster Relationship Specialty Start Date End Date Tylor William PA PCP - General General Internal Medicine 01/13/20 documented as of this encounter
--- OUTSIDE RECORDS SUMMARY | 2022-05-12 01:19 | XMS_ITS | Encounter Summary ---
:1950 Author Organization [facility] [place] [address] Care Team Providers Name Role Phone Haja Marshall MD Primary Care Provider Encounter Details Date Type Department Care Team Description 11/28/2019 Notes Only Radiation Oncology at Clara Hameed RN [address] [phone] Social History Tobacco Use [...] documented as of this encounter Progress Notes Clara Hameed RN - 11/28/2019 4:13 PM EST Radiation Oncology Nurse Telephone Note [facility] [place], [place] Radiation therapists report to nursing that they could see on their films that his bladder was very full. When he went to empty it some with the urinal, he only urinated about 50 mls. ( nurse was shownthe urinal containing clear yellow urine) Dr Marshall informed. He advised that he do self catheterizing every evening before bed and as neededthrough out the day. Saw patient after he voided in the bathroom. He said that he was able to urinate more in the toilet ( more than he did in the urinal). He states that he has some discomfort aceing left side of lower abd. He said that he has been voiding frequently today. He drinks 2 bottles of water a day ( 12 ounces each) plus a large coffee to go in the AM. Intervention: Dr Marshall's instructions were relayed to him. He agreed with this plan. For Weekend/Holiday coverage while our clinic is closed, the patient was instructed to call [facility] at [phone] and ask for the food and beverage controller radiation oncologist or he could also go to local ER. Patient verbalized understanding. Patient verbalized understanding of these instructions. Plan: Weekly on-treatment visit every w/ Dr Marshall and daily visits prn with nursing documented in this encounter Plan of Treatment Upcoming Encounters Date Type Specialty Care Team Description 05/18/2022 Office Visit Radiation Oncology Grace Raymond, [facility] RADIATION [place], [place] [address] (Wo rk) 05/18/2022 Infusion Hematology and Oncology documented as of this encounter Visit Diagnoses Not on filedocumented in this encounter Care Teams Risk Specialist Relationship Specialty Start Date End Date Haja Marshall MD PCP - General Radiation Oncology 09/24/19 01/12/[address] [place] [address] [place] [address] documented as of this encounter
--- OUTSIDE RECORDS SUMMARY | 2022-05-12 01:19 | XMS_ITS | Encounter Summary ---
:1950 Author Organization [facility] [place] [address] Care Team Providers Name Role Phone Haja Marshall MD Primary Care Provider Reason for Referral Diagnostic Test (Routine) - Closed Specialty Diagnoses / Procedures Referred By Contact Refer red To Contact Radiology Diagnoses Primary malignant neoplasm of prostate with high risk of recurrence due to Ramon score of 8 to 10 and PSA greater than 20 Haja Marshall MD [facility] Rad Mri Procedures MRI Pelvis wo (Prostate) [address] [place] [address] RAD[address]ATION ONCOLOGY [address] [phone] Referral ID Status Reason Start Date Expiration Date Visits V isits Requested Authorized [id number] Closed Specialty 09/22/2019 03/23/2021 1 1 Service Requested Reason for Visit Diagnostic Test (Routine) - Closed Specialty Diagnoses / Procedures Referred By Contact Refer red To Contact Radiology Diagnoses Primary malignant neoplasm of prostate with high risk of recurrence due to Ramon score of 8 to 10 and PSA greater than 20 Haja Marshall MD [facility] Rad Mri Procedures MRI Pelvis wo (Prostate) [address] [place] [address] RADIATION ONCOLOGY [address] [address] Referral ID Status Reason Start Date Expiration Date Visits V isits Requested Authorized [id number] Closed Specialty 09/22/2019 03/23/2021 1 1 Service Requested Encounter Details Date Type Department Care Team Description 10/24/2019 Hospital Encounter MRI at [facility] Haja Marshall S, Primary malignant [facility] neoplasm of prostate Drive [address] [place] [address] DR with high risk of [place], [place] RADIATION recurrence due to [phone] ONCOLOGY Elrama score of [facility], [place] [address] [place] [id number] greater than 20 Social History Tobacco Use [...] on file documented as of this encounter Medications at Time of Discharge Medication Sig Dispensed Refills Start Date End Date tamsulosin (FLOMAX) 0.4 mg 0.8 mg nightly. 11 11/2018 Capsule bicalutamide (CASODEX) 50 Take 1 tablet by 30 tablet 6 07/2502/05/2020 mg Tablet mouth daily. documented as of this encounter Plan of Treatment Upcoming Encounters Date Type Specialty Care Team Description 05/18/2022 Office Visit Radiation Oncology Grace Raymond, [facility] RADIATION ONCDEBBIE [place], [place] [address] (Wo rk) 05/18/2022 Infusion Hematology and Oncology documented as of this encounter Procedures Procedure Name Priority Date/Time Associated Diagnosis Comme nts MRI PELVIS WO Routine 10/24/2019 1:30 PM Primary malignant Res ults for this (PROSTATE) EST neoplasm of prostate procedu re are in with high risk of the result s recurrence due to section. Ramon score of 8 to 10 and PSA greater than 20 documented in this encounter Results MRI Pelvis wo (Prostate) (10/24/2019 1:30 PM EST) Anatomical Region Laterality Modality Pelvis Magnetic Resonance Specimen (Source) Anatomical Location Collection Method / Collectio n Time Received Time / Laterality Volume Impressions 10/24/2019 1:52 PM EST Radiation treatment planning MRI of the prostate. Thank you for letting us participate in the care of this patient. For questions regarding this report, please contact e number below. ? Narrative 10/24/2019 1:52 PM EST EXAMINATION: MRI PELVIS WO (PROSTATE) CLINICAL HISTORY: prostate cancer s/p fi ducial marker and hydrogel placement. MRI for radiation planning, please use v olumetric study sequence if possible (e.g. LAWS or the like) TECHNIQUE: MRI of the prostate without contrast. COMPARISON: Correlation made with CT of the abdomen and pelvis 07/25/19 FINDINGS: Several sequences are limited by motion artifact and were repeated. The prostate measures 3.8 x 4.3 x 5.4 cm for calculated volume of 45.9 cc. Space OAR gel noted between the rectum and the prostate. Prostate fiducial markers are in place. T2 hypointense focus in the po sterior peripheral zone. No pelvic lymphadenopathy. No osseous metastases i dentified. Trabeculated bladder johnson with several small diverticula. Procedure Note Rk Urena MD - 10/24/2019Format ting of this note might be different from the original. EXAMINATION: MRI PELVIS WO (PROSTATE) CLINICAL HISTORY: prostate cancer s/p fi ducial marker and hydrogel placement. MRI for radiation planning, please use v olumetric study sequence if possible (e.g. LAWS or the like) TECHNIQUE: MRI of the prostate without contrast. COMPARISON: Correlation made with CT of the abdomen and pelvis 07/25/19 FINDINGS: Several sequences are limited by motion artifact and were repeated. The prostate measures 3.8 x 4.3 x 5.4 cm for calculated volume of 45.9 cc. Space OAR gel noted between the rectum and the prostate. Prostate fiducial markers are in place. T2 hypointense focus in the po sterior peripheral zone. No pelvic lymphadenopathy. No osseous metastases i dentified. Trabeculated bladder johnson with several small diverticula. IMPRESSION Radiation treatment planning MRI of the prostate. Thank you for letting us participate in the care of this patient. For questions regarding this report, please contact e number below. Haja Marshall MD IMG MRI ORDERABLES documented in this encounter Visit Diagnoses Diagnosis Primary malignant neoplasm of prostate w ith high risk of recurrence due to Elrama score of 8 to 10 and PSA greater than 20 documented in this encounter Care Teams Machine Fitter Relationship Specialty Start Date End Date Haja Marshall MD PCP - General Radiation Oncology 09/24/19 01/12/[address] [place] [address] [place] [address] documented as of this encounter
--- OUTSIDE RECORDS SUMMARY | 2022-05-12 01:19 | XMS_ITS | Encounter Summary ---
:1950 Author Organization [facility] Address [address] [place] [address] Care Team Providers Name Role Phone Haja Marshall MD Primary Care Provider Encounter Details Date Type Department Care Team Description 10/08/2019 Unscheduled Encounter Radiation Oncology Zari, Primary malignant at [facility] Clara Gross RN neoplasm of prostate [address] [place] [address] Drive with high risk of [place], [place] recurrence due to [phone] Ramon score of to 10 and PSA greater than 20 Social History Tobacco Use [...] encounter Progress Notes Clara Hameed RN - 10/08/2019 4:37 PM EST Patient information for gold coil prostate placement Individual involved with teaching: in person 10/08/19 15:00 - 15:40 Patient [ x ] spouse [ x ] Other [ daughter ] Procedure Date:10/15/19 Arrival Time:0800 Time of Procedure: ~0830 Location: [facility] Why gold coils? You and your doctor have discussed treatment options and have decided that Gold coils would be helpful in your external beam radiation treatment. The coil is a small 24 karat gold coil that will sit within the prostate and help to locate it on the planning CT scan. Usually 2 coils are used...one to sho the left and right sides on the gland. WHY DO I NEED A SPACEOAR IMPLANT? ?? The SpaceOAR will help avoid rectal injury during radiation treatment. ?? The space between the prostate and the rectum can be increased by an absorbable gel spacer. ?? The SpaceOAR System is a soft gel-like material that temporarily moves the rectum 1/2 away from the high dose radiation area protecting the rectum. It will stay in your body for three months while you are receiving your radiation treatment, and is then naturally absorbed by your body and cleared in your urine in approximately six months. THE WEEK BEFORE THE PROCEDURE: STOP TAKING BLOOD THINNERS Stop taking medications that might thin your blood(anticoagulants) 1 week before your cold coil is scheduled to be placed i.e.;aspirin, ibuprofen, gingko biloba, Coumadin, Lovenox, etc. Please ask if you are not sure about any of your medications. For you this means stop taking [ N/A ] Prescriptions to get [facility] Prescription for steroid: to prevent swelling at implant site. [yes ]dexamethasone : starting the day of the procedure: 2 mg twice a day for 3 days then 2 mg once a day for 3 days Prescription for Antibiotic: to prevent infection [ yes ]Levofloxacin 500 mg 1 hour before the procedure. [ 2 provided by clinic ]2 fleet enemas Prescription to help you relax ( if needed) [ yes ] Lorazepam 1 mg po 1 hour prior to procedure. Bring 2nd pill with you to procedure in case you need a repeat dose. Do not take 2 dose before checking with doctor/nurse first. You must have someone drive you home if you take this medication due to its sedative properties. THE DAY BEFORE THE PROCEDURE: ?? Eat a normal dinner (evening meal) ?? Administer one fleets enema before bedtime THE MORNING AND DAY OF THE PROCEDURE: ?? Administer the second fleets enema (2-3 hours prior to scheduled time of procedure) ?? Eat a normal meals and take your usual daily medications (except anticoagulants) ?? Start dexamethasone (steroid) as directed. 1 pill twice a day for 3 days, then 1 pill once a day for 3 days. ?? Take antibiotic levofloxacin 1 hour prior to procedure. ?? If ordered: take Lorazepam 1 mg po 1 hour prior to procedure. Plan to arrive in the Radiation/Oncology Department 30 minutes before scheduled procedure. You will be asked to change in to a hospital gown (remove everything from your waist down.) How is procedure done? You will be brought into a procedure room and asked to lie on your back with your feet placed in stirrups. An ultrasound probe will be inserted into your rectum in order to visualize your prostate gland. After you are given a local anesthetic, the 2 needles containing the coils will be gently inserted through the skin into your prostate gland. AFTER THE PROCEDURE: ?? You may resume normal activity ?? You may take extra-strength or regular Tylenol for any discomfort. ?? Continue dexamethasone as directed. 1 pill twice a day for 3 days, then 1 pill once a day for 3 days. Call us if you notice any unusual swelling ,pain or if you have any other concerns. Future Appointments: ?? MRI at [facility] : You will receive separate instructions specifically from [facility] concerning your exactarrival time and what you need to do to prepare for this. Date: 10/24 around 12:00 ?? Your planning session (simulation) will be done at [facility] the same day of your MRI at the RadiationOncology Department section 2K [Date: 10/24/19 ] [Time:arrive at 1:30 ] For proper visualization of prostate, it is required that you have a moderately full bladder. This will require you to arrive 30 minutes before scheduled appointment and drink 2 glasses of water upon arrival. There are no restrictions with eating. How to reach us: [facility] [phone] For weekends and after hours: Call [facility] ask for the livestock nutrition territory manager radiation oncologist documented in this encounter Plan of Treatment Upcoming Encounters Date Type Specialty Care Team Description 05/18/2022 Office Visit Radiation Oncology Grace Raymond APRN [facility] [address] ZOFIA [place]BARADO [place], [place] [address] (Wo rk) 05/18/2022 Infusion Hematology and Oncology documented as of this encounter Visit Diagnoses Diagnosis Primary malignant neoplasm of prostate w ith high risk of recurrence due to [place] score of 8 to 10 and PSA greater than 20 documented in this encounter Care Teams Postal Service Mail Processor Relationship Specialty Start Date End Date Haja Marshall MD PCP - General Radiation Oncology 09/24/19 01/12/[address] [place] [address] [place] [address] documented as of this encounter
--- OUTSIDE RECORDS SUMMARY | 2022-05-12 01:19 | XMS_ITS | Encounter Summary ---
:1950 Author Organization [facility] [place] [address] Care Team Providers Name Role Phone Tylor William Primary Care Provider Reason for Visit Reason Comments Injections Lupron Encounter Details Date Type Department Care Team Description 08/27/2020 Infusion Hematology Oncology at [address] [phone] Social History Tobacco Use [...] encounter Progress Notes Carol Anguiano RN - 08/27/2020 3:30 PM EST Infusion Note Diagnosis:Prostate Cancer Treatment: Lupron Injection Lupron (Eligard) 22.5mg injected in left gluteal. Patient instructed on side effects of Lupron. Patient states understanding of teaching, Patient aware to call clinic with any questions or concerns. Plan: Return to clinic as scheduled. documented in this encounter Plan of Treatment Upcoming Encounters Date Type Specialty Care Team Description 05/18/2022 Office Visit Radiation Oncology Grace Raymond, SPECIAL INVESTIGATION UNIT INVESTIGATOR [facility] RADIATION ONCDEBBIE [place], [place] [address] (Wo rk) 05/18/2022 Infusion Hematology and Oncology documented as of this encounter Visit Diagnoses Diagnosis Malignant neoplasm of prostate documented in this encounter Administered Medications Inactive Administered Medications - up to 3 most recent administrations Medication Order MAR Action Action Date Dose Rate Site leuprolide (3 month) Given 08/27/2020 3:13 PM 22.5 mg 20-Other (document (Jax) subcutaneous EST in comment section) injection 22.5 mg 22.5 mg, Subcutaneous, ONCE, 1 dose, On Sun08/27/20 at 1515, Routine documented in this encounter Care Teams Pest Control Applicator Relationship Specialty Start Date End Date Tylor William PA PCP - General General Internal Medicine 01/13/20 documented as of this encounter
--- OUTSIDE RECORDS SUMMARY | 2022-05-12 01:19 | XMS_ITS | Encounter Summary ---
:1950 Author Organization [facility] [place] [address] Care Team Providers Name Role Phone Ursula Jcaob Primary Care Provider Reason for Visit Diagnostic Test (Routine) - Closed Specialty Diagnoses / Procedures Referred By Contact Refer red To Contact Radiology Diagnoses PAD (peripheral artery disease) Intermittent claudication Luis Barnard MD [facility] Rad Ct Scan Procedures CT Angiogram Aortic Lower Extremity Runoff [facility] [place] [address] [place] [address] Referral ID Status Reason Start Date Expiration Date Visits V isits Requested Authorized [id number] Closed Specialty 10/05/2020 04/04/2022 1 1 Service Requested Encounter Details Date Type Department Care Team Description 03/22/[address] Scan at [facility] Luis Barnard [facility] [place] [phone] [place], [place] [address] (Wo rk) Social History Tobacco [...] Take 1 tablet by 90 tablet 3 020 04/11/2021 40 mg Tablet mouth daily. documented as of this encounter Plan of Treatment Upcoming Encounters Date Type Specialty Care Team Description 05/18/2022 Office Visit Radiation Oncology Grace Raymond, RESPIRATORY EQUIPMENT ASSISTANT [facility] DR ZOFIA ALBARADO [place], [place] [address] (Wo rk) 05/18/2022 Infusion Hematology and Oncology documented as of this encounter Procedures Procedure Name Priority Date/Time Associated Diagnosis Comme nts CT ANGIOGRAM AORTA Routine 03/22/2021 10:47 PAD (peripheral Re sults for this LOWER EXTREMITY AM EDT artery disease) procedure are in RUNOFF Intermittent the results claudication section. documented in this encounter Results CT Angiogram Aortic Lower [...] who have questions please contact the health child care sitter that requested your imaging first. ? Electronically signed by: Kodi tobin MD, [facility] ([phone]), at 03/22/2021 11:58 AM Narrative 03/22/2021 11:58 [...] ho have questions please contact the health child care sitter that requested your imaging first. Electronically signed by: Kodi tobin MD, [facility] ([phone]), at 03/22/2021 11:58 AM Luis Barnard MD IMG CT ORDERABLES documented in this encounter Visit Diagnoses Not on filedocumented in this encounter Administered Medications Inactive Administered Medications - up to 3 most recent administrations Medication Order MAR Action Action Date Dose Rate Site iohexoL (Omnipaque) (350 mg/mL) Given 03/22/2021 10:44 AM EDT 15 0 mLs injection solution 0-200 mL 0-200 mL, Intravenous, ONCE PRN, 1 dose, Starting on Sun03/22/21 at 1043, Until Sun03/22/21 at 1044, Per Protocol, Warning Vesicant/Irritant Medication , Radiology Contrast, Routine documented in this encounter Care Teams Painter Rough Relationship Specialty Start Date End Date Ursula Jacob PCP - General Family Medicine 03/16/21 [address] [place] [address] documented as of this encounter
--- OUTSIDE RECORDS SUMMARY | 2022-05-12 01:19 | XMS_ITS | Encounter Summary ---
:1950 Author Organization [facility] Address [address] [facility] [place] [address] Care Team Providers Name Role Phone Haja Marshall MD Primary Care Provider Encounter Details Date Type Department Care Team Description 12/14/2019 Telephone Radiation Oncology a t [facility] Keeley Goodson [address] [place] [address] [phone] Social History Tobacco Use Types [...] Notes Telephone Encounter - Keeley Goodson - 12/14/2019 4:28 PM EDT Called Rey to inform him [...] 05/18/2022 Office Visit Radiation Oncology Grace Raymond, COMMERCIAL FLOOR COVERING INSTALLER [facility] [place], [place] [address] (Wo rk) 05/18/2022 Infusion Hematology and Oncology documented as of this encounter Visit Diagnoses Not on filedocumented in this encounter Care Teams Brim Rounder Relationship Specialty Start Date End Date Haja Marshall MD PCP - General Radiation Oncology 09/24/19 01/12/[address] [place] [address] [place] [address] documented as of this encounter
--- OUTSIDE RECORDS SUMMARY | 2022-05-12 01:19 | XMS_ITS | Encounter Summary ---
:1950 Author Organization [facility] [place] [address] Care Team Providers Name Role Phone Haja Marshall MD Primary Care Provider Encounter Details Date Type Department Care Team Description 01/01/2020 Office Visit Radiation Oncology at Haja Marshall M alignant neoplasm of [facility] prostate [address] [place], [place] RADIATION ONCOL OGY [address] [place], [place] [phone] (Wo rk) Social History Tobacco Use Types [...] encounter Progress Notes Haja Marshall MD - 01/01/2020 3:00 PM EDT Images from the original note were not included. RADIATION ONCOLOGY - Weekly On Treatment Visit Note 01/01/20 Haja Marshall MD, MS Radiation Oncology [facility] [phone] (paging boarding machine operator) Pager #[phone] PATIENT IDENTIFICATION Name Rey Jean Baptiste Date [...] 79.2 Gy in 44 fractions Current Dose: 75.6 Gy in 42 fractions INTERVAL HISTORY Subjective: General - Overall continues to feel well. GI - No diarrhea or cramping. - Nocturia stable q2h. No dysuria. Just taking flomax 0.8mg qhs along with casodex. Baseline IPSShistory is listed below. Prostate Today's Scores 08/04/2019 09/22/2019 Sexual Health Inventory for Men 17 (Mild ED) 23 International Prostate Symptom Score 16 (Moderate LUTS) 13 (Moderate LUTS) Pain: Pain score today is 0/10. MEDICATIONS Medications 01/01/20 1505 Medication Sig Taking? tamsulosin (FLOMAX) 0.4 mg [...] dysuria: Rec continue flomax 0.8mg qhs, aleve prn for dysuria. Followup: Completes Sunday. RV in January per above. documented in this encounter Plan of Treatment Upcoming Encounters Date Type Specialty Care Team Description 05/18/2022 Office Visit Radiation Oncology Grace Raymond, [facility] RADIATION [place], [place] [address] (Wo rk) 05/18/2022 Infusion Hematology and Oncology documented as of this encounter Visit Diagnoses Diagnosis Malignant neoplasm of prostate documented in this encounter Care Teams Social Science Teacher Relationship Specialty Start Date End Date Haja Marshall MD PCP - General Radiation Oncology 09/24/19 01/12/[address] [place] [address] [place] [address] documented as of this encounter
--- OUTSIDE RECORDS SUMMARY | 2022-05-12 01:19 | XMS_ITS | Encounter Summary ---
:1950 Author Organization [facility] [place] [address] Care Team Providers Name Role Phone Ursula Jacob Primary Care Provider Encounter Details Date Type Department Care Team Description 03/22/2021 Tech Visit Vascular Lab at [facility] (peripheral artery disease); [place] [address] Social History Tobacco Use Types Packs/Day [...] Office Visit Radiation Oncology Grace Raymond APRN [facility] RADIATION [place], [place] [address] (Wo rk) 05/18/2022 Infusion Hematology and Oncology documented as of this encounter Procedures Procedure Name Priority Date/Time Associated Diagnosis Comme nts CT ANGIOGRAM AORTA Routine 03/22/2021 10:47 PAD (peripheral Re sults for this LOWER EXTREMITY AM EDT artery disease) procedure are in RUNOFF Intermittent the results claudication section. ROXANNE, LEGS, MULTIPLE Routine 03/22/2021 9:40 AM PAD (peripheral Results for this LEVELS EDT artery disease) procedure are in Intermittent the results claudication section. documented in [...] who have questions please contact the health resident caregiver that requested your imaging first. ? Narrative 03/22/2021 11:58 AM EDT EXAMINATION: CT [...] ho have questions please contact the health resident caregiver that requested your imaging first. Luis Barnard MD IMG CT ORDERABLES ROXANNE, legs, multiple levels (03/22/2021 9:40 AM EDT) Component Value Ref Test Analysis Performed At [facility] Range Method Time Signature VB Text Department: Vascular Surgery Lab VASCUBASE Report Patient: [id number] (ALONSO BURKS) CPT: 89293 ICD10: I73.9 Referring Physician: LUIS BARNARD ?? Phone: Indications: LT great toe numbness, ? peripheral perfusion Diabetes mellitus: No ICD10 Diagnosis Code: I73.9 Findings: Right ?Pressure (mm Hg) ?? ROXANNE ??Waveform ?TBI ?? Brachial Artery ?140 ? Dorsalis Pedis (Ankle) Arter y ?59 ?0.42 ??Monophasic ? Posterior Tibial (Ankle) Art namrata ??72 ?0.51 ??[place]- Biphasic ? Great Toe ?40 ? 0.29 [...] category. 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 This is a [...] unspecified documented in this encounter Care Teams Ad Taker Relationship Specialty Start Date End Date Ursula Jacob PCP - General Family Medicine 03/16/21 [address] [place] [address] documented as of this encounter
--- OUTSIDE RECORDS SUMMARY | 2022-05-12 01:19 | XMS_ITS | Encounter Summary ---
:1950 Author Organization [facility] [place] [address] Care Team Providers Name Role Phone Haja Marshall MD Primary Care Provider Encounter Details Date Type Department Care Team Description 12/25/2019 Office Visit Radiation Oncology at Haja Marshall M alignant neoplasm of [facility] prostate [address] [place], [place] RADIATION ONCOL OGY [address] [place], [place] [phone] (Wo rk) Social History Tobacco Use Types [...] encounter Progress Notes Haja Marshall MD - 12/25/2019 3:15 PM EDT Images from the original note were not included. RADIATION ONCOLOGY - Weekly On Treatment Visit Note 12/25/19 Haja Marshall MD, MS Radiation Oncology [facility] [phone] (paging bolting machine operator) Pager #[phone] PATIENT IDENTIFICATION Name Rey Jean Baptiste Date [...] 79.2 Gy in 44 fractions Current Dose: 66.6 Gy in 37 fractions INTERVAL HISTORY Subjective: General - Overall continues to feel well. GI - Less cramping this week - he is now following the LRD. - Nocturia stable at q2h but ongoing dysuria w concentrated urine in the evening. Still taking advil 600mg and flomax 0.8mg qhs along with casodex. Baseline IPSS history is listed below. Prostate Today's Scores 08/04/2019 09/22/2019 Sexual Health Inventory for Men 17 (Mild ED) 23 International Prostate Symptom Score 16 (Moderate LUTS) 13 (Moderate LUTS) Pain: Pain score today is 0/10. MEDICATIONS Medications 12/25/19 1541 Medication Sig Taking? ibuprofen (Advil;Motrin) 200 mg [...] aleve prior to RT in the afternoons. Also advised to drink more water in the mid-day for more dilute urine in the evening. Followup: Return to clinic next week for on treatment check. documented in this encounter Plan of Treatment Upcoming Encounters Date Type Specialty Care Team Description 05/18/2022 Office Visit Radiation Oncology Grace Raymond, [facility] RADIATION ONCOLO [place], [place] [address] (Wo rk) 05/18/2022 Infusion Hematology and Oncology documented as of this encounter Visit Diagnoses Diagnosis Malignant neoplasm of prostate documented in this encounter Care Teams Croze Cutter Helper Relationship Specialty Start Date End Date Haja Marshall MD PCP - General Radiation Oncology 09/24/19 01/12/[address] [place] [address] [place] [address] documented as of this encounter
--- OUTSIDE RECORDS SUMMARY | 2022-05-12 01:19 | XMS_ITS | Encounter Summary ---
:1950 Author Organization [facility] [place] [address] Care Team Providers Name Role Phone Haja Marshall MD Primary Care Provider Encounter Details Date Type Department Care Team Description 11/06/2019 Office Visit Radiation Oncology at Haja Marshall M alignant neoplasm of [facility] prostate [address] [place], [place] RADIATION ONCOL OGY [address] [place], [place] [phone] (Wo rk) Social History Tobacco Use Types [...] Sign Reading Time Taken Comments Blood Pressure 161/78 11/06/2019 3:00 PM EST Pulse 78 11/06/2019 3:00 PM EST Temperature 36.4 ??C (97.5 ??F) 11/06/2019 3:00 PM EST Respiratory Rate 16 11/06/2019 3:00 PM EST Oxygen Saturation 100% 11/06/2019 3:00 PM EST Inhaled Oxygen Concentration - - Weight 74.4 kg (164 lb) 11/06/2019 3:00 PM EST Height - - Body Mass Index - - documented in this encounter Progress Notes Haja Marshall MD - 11/06/2019 3:30 PM EST Images from the original note were not included. RADIATION ONCOLOGY - Weekly On Treatment Visit Note 11/06/19 Haja Marshall MD, MS Radiation Oncology [facility] [phone] (paging presetter operator) Pager #[phone] PATIENT IDENTIFICATION Name Rey Jean Baptiste Date of 1950 PCP Haja Marshall MD Referring MD (if different) Dr. Woodall Diagnosis High-Risk Prostate Cancer (Gl 4+5, PSA 13.5, cT2a) NEOADJUVANT / CONCURRENT THERAPY: LT-ADT (planned 36 months) Lupron #1: (22.5 mg) - 08/04/19 INTENT OF THERAPY: Definitive (Curative) RADIATION TREATMENT DETAILS: Initial Treatment Site Pelvis, Entire SV and Prostate Prescribed Dose 45 Gy in 25 fractions Boost Treatment Site 1 Proximal SV and Prostate Prescribe Dose 68.4Gy in 38 fractions Boost Treatment Site 2 Prostate Prescribed Dose 79.2 Gy in 44 fractions Current Dose: 3.6 Gy in 2 fractions INTERVAL HISTORY Subjective: General - No changes since last seen. Started this week. Ongoing hot flashes wake him up at night. GI - No diarrhea. - Nocturia 3-4 x/nt at baseline. Taking flomax 0.8mg qhs along with casodex. Baseline IPSS history is listed below. Prostate Today's Scores 08/04/2019 09/22/2019 Sexual Health Inventory for Men 17 (Mild ED) 23 International Prostate Symptom Score 16 (Moderate LUTS) 13 (Moderate LUTS) Pain: Pain score today is 0/10. MEDICATIONS Medications 11/06/19 6359 Medication Sig Taking? tamsulosin (FLOMAX) 0.4 mg Capsule 0.8 mg nightly. Yes bicalutamide (CASODEX) 50 mg Tablet Take 1 tablet by mouth daily. Yes IMAGING I have personally reviewed this patient's interval portal imaging to confirm accurate positioning and alignment which matches the patient's original approved treatment planning images. EXAM: BP 161/78 Pulse 78 Temp 36.4 ??C (97.5 ??F) Resp 16 Wt 74.4 kg (164 lb) SpO2 100% Constitutional: he appears well-developed [...] 05/18/2022 Office Visit Radiation Oncology Grace Raymond, PRECIN[employer] I POLICE SERGEANT [facility] RADIATION ON[place]BIE [place], [place] [address] (Wo rk) 05/18/2022 Infusion Hematology and Oncology documented as of this encounter Visit Diagnoses Diagnosis Malignant neoplasm of prostate documented in this encounter Care Teams Campus Safety Officer Relationship Specialty Start Date End Date Haja Marshall MD PCP - General Radiation Oncology 09/24/19 01/12/[address] [place] [address] [place] [address] documented as of this encounter
--- OUTSIDE RECORDS SUMMARY | 2022-05-12 01:19 | XMS_ITS | Encounter Summary ---
:1950 Author Organization [facility] [place] [address] Care Team Providers Name Role Phone Unavailable Primary Care Provider Unavailable Reason for Referral Consultation (Routine) - Closed Specialty Diagnoses / Procedures Referred By Contact Refer red To Contact Radiation Oncology Diagnoses Primary malignant neoplasm of prostate with high risk of recurrence due to Ramon score of 8 to 10 and PSA greater than 20 Haja Marshall MD [facility] Rad Onc Office Procedures Simulation for Radiation Therapy Planning [address] [place] [address] [place] [address] [place] [id number] Referral ID Status Reason Start Date Expiration Date Visits V isits Requested Authorized [id number] Closed Consult, 09/22/2019 09/21/2020 1 1 Test & Treat iagnostic Test (Routine) - Closed Specialty Diagnoses / Procedures Referred By Contact Refer red To Contact Radiology Diagnoses Primary malignant neoplasm of prostate with high risk of recurrence due to Ramon score of 8 to 10 and PSA greater than 20 Haja Marshall MD [facility] Rad Mri Procedures MRI Pelvis wo (Prostate) [address] [place] [address] [place] [address] [place], [place] [address] Referral ID Status Reason Start Date Expiration Date Visits V isits Requested Authorized [id number] Closed Specialty 09/22/2019 03/23/2021 1 1 Service Requested Encounter Details Date Type Department Care Team Description 09/22/2019 Office Visit Radiation Oncology at Haja Marshall P rimary malignant [facility] neoplasm of prostate [address] with high risk of [place], [place] [id number] [place] Ramon score of 8 to [phone] 10 and PSA greater [phone] (Wo rk) than 20 Social History Tobacco Use Types [...] Sign Reading Time Taken Comments Blood Pressure 145/76 09/22/2019 11:00 AM EST Pulse 64 09/22/2019 11:00 AM EST Temperature 36.4 ??C (97.5 ??F) 09/22/2019 11:00 AM EST Respiratory Rate 12 09/22/2019 11:00 AM EST Oxygen Saturation 100% 09/22/2019 11:00 AM EST Inhaled Oxygen Concentration - - Weight - - Height - - Body Mass Index - - documented in this encounter Patient Instructions Patient InstructionsHaja Marshall MD - 09/22/2019 11:00 AM EST We discussed the following next steps as part of your cancer evaluation and/or treatment: 1. Fiducial marker and SpaceOAR gel implants: If you decide to choose external beam radiation by itself, the first step will be for you to return to our clinic so that we can place small gold markers (called fiducials) into the prostate, which help us visualize the prostate on a daily basis prior to treating you with radiation. These small gold seeds are about the size of a grain of rice, and we willplace one into each side of the prostate. At the same time I will also implant a gel called SpaceOAR, which involves an injection of the gel into the space between the prostate and rectum, to decrease the amount of radiation that goes to the rectum. Some early data suggests it may be helpful in reducing radiation injury to the rectum. It is important to note, however, that Medicare has recently officially refused to pay for this procedure which can cost up to $4000 in our region (it does pay for it in other parts of the country). Because of this issue, a law firm will appeal any bills that you might receive, to a analytical manager. In most cases, we have been told, the bills are waived and Medicare is ordered to make the payment. These procedures will be performed here in our clinic, and our nursing team will provide you instructions with how to prepare yourself. It takes approximately 2 hours from when you arrive to when you leave the building. 2. Radiation Therapy and Planning: Radiation therapy involves using high energy radiation which kills cancer but also normal healthy tissues. In order to make sure the radiation goes to the cancerous tissues and to also avoid radiating the normal tissues, we design radiation beams beams into special shapes which come from various different directions. Because no two people and no two cancers are completely identical, the radiation plan we create for you will be unique to you and your body. In order to figure out how many beams to use, how much radiation to give, which angles they should come from, and how they should be shaped, we have asked you to undergo 2 mapping scans: one is done here in our department known as a CT simulation, or CT sim, for short. This is essentially a CAT-scan similar to scans which you may have received before, but slightly different in a few ways: First, it allows usto place you in the exact same position which you should expect to be placed during each of your radiation treatment sessions. Second, it lets us better understand where the radiation targets and the normal tissues that we want to avoid exist, in relation to each other and the radiation beams. The second scan is a prostate MRI which will show us the position of the markers and improve our ability to see your prostate. Following these scans, we then perform additional calculations and measurements to create the absolute best plan possible for you. Depending on the complexity of the plan, these processes can take fromjust few hours to several days, and for that we ask for your patience. If you have any questions about the planning process or your custom radiation plan, I would be more than happy to review the plan with you during your first week of treatment. I anticipate you would receive either 25 or 44 treatments total, daily Sunday-Sunday. (25 treatments if you choose to have the radioactive seed implant, 44 if external beam radiation by itself.) Your start date and time would be provided once the simulationscan is completed. During your radiation treatments, you can expect to see me once per week so that I can examine you to make sure you are tolerating radiation treatments and so that we can monitor your response to treatment. 3. SIDE EFFECTS - Short Term: We discussed some common temporary side effects that you may experience during radiation. Common side effects may include irritative symptoms of the bladder or prostate, which can result in more frequent urination or defecation. Other common side effects mahy include weake raiza urinary stream or burning with urination. If you experience any of these, please let us know so that we can help to treat them. These typically resolve within 4-6 weeks of completion radiation. 4. SIDE EFFECTS - Junior Mechanical Engineer: These can include be permanent damage of the radiated tissues, including the rectum/bowel, bladder, prostate and surrounding tissues. Potential serious injury is rare, but can include poor wound healing, bleeding, or destruction of healthy tissue that may require surgery to repair and may result in a colostomy (bag for defecation) or urostomy (bag for urination). There may be a slow, shelter decrease in your sexual function as well, which is partly due to the aging process but also partly due to radiation side effects. This is typically responsive to medications like Viagra. Finally, there is a risk that radiation to your prostate increases the chance of getting another cancer caused by radiation, possibly of the prostate, bladder, rectum or surrounding tissues. This risk is overall quite low (approximately 1% above your normal risk for each 10 years you are alive), but is something to be aware of. Please do not hesitate to call me at [phone] with any other questions or concerns you have. If I am not here, one of our radiation oncology nurses can assist you or help you get in touch with me. A Radiation Oncology doctor is also power house control room operator after our normal hours and on weekends for urgent questions or concerns related to radiation treatments that can not wait until normal business hours. To reach the on-call doctor after-hours, just call and have the barbed wire machine operator page the Radiation Oncologist power house control room operator. And, as always, if you experience any life-threatening emergencies which any include the following, you need to seek emergency care immediately by calling 911: 1. Sudden and unexpected breathing difficulty without any exertion 2. Sudden onset of chest pain 3. Sudden onset of severe pain or uncontrolled pain 4. Sudden onset of severe weakness and/or unable to walk 5. Sudden new onset of a seizure 6. Fall resulting in injury 7. Uncontrollable bleeding Haja Howe MD, MS Director Check of Radiation Oncology [facility] documented in this encounter Progress Notes Haja Marshall MD - 09/22/2019 11:00 AM EST Radiation Oncology Established Patient Followup Note Haja Marshall MD, MS [facility] Patient Identification: Rey Jean Baptiste is a 69 y.o. year old male with high risk prostate cancer. For details regarding initial presentation please refer to my consultation note dated 08/04/19. INTERVAL HISTORY I am seeing him today to review his interval medical history, the treatment plan for his prostate cancer, the logistics of external beam radiotherapy (including fiducial marker placement, spaceOAR gel implantation, planning MRI, CT simulation and treatment itself), possible acute toxicities and/or late complications. Since last seen, he reports an improvement in his LUTS per below. Specifically he feels as though his stream and nocturia are both improved since starting ADT last month. Prostate IPSS and KELL(Pt Entered): last 5 values Prostate Today's Scores 08/04/2019 09/22/2019 Sexual Health Inventory for Men 17 (Mild ED) 23 International Prostate Symptom Score 16 (Moderate LUTS) 13 (Moderate LUTS) Prostate IPSS and KELL(Pt Entered): Today's answers and scores Prostate Scores and Responses 09/22/2019 Confidence, level - past 6 months High Penetration - past 6 months Most times (much more than half the time) Penetration, maintain - past 6 months Almost always or always Erection, maintain - past 6 months Not difficult Sexual satisfaction - past 6 months Almost always or always Sexual Health in Men 23 Incomplete emptying Less than half the time Frequency Less than half the time Intermittency Less than 1 time in 5 Urgency Less than half the time Weak Stream About half the time Straining Not at all Nocturia 3 times Quality of life Mixed - about equally satisfied and dissatisfied Total IPSS Score 13 (MODERATE LUTS) ASSESSMENT / PLAN Logistics, toxicities and complications of LT-ADT + pelvic / prostatic radiation were reviewed with the patient today. Afterwards, informed consent for fiducial marker, spaceOAR placement, CT simulation and external beam radiotherapy was obtained. Nursing staff will provide additional teaching with regard to pre and post procedure medications. At least 30 minutes of this 40 minute visit was spent with the patient [id number] reviewing his interval medical history and answering questions related to his prostate cancer. documented in this encounter Plan of Treatment Upcoming Encounters Date Type Specialty Care Team Description 05/18/2022 Office Visit Radiation Oncology Grace Raymond, [employer] [facility] RADIATION [place]BIE [place], [place] [address] (Wo rk) 05/18/2022 Infusion Hematology and Oncology Scheduled Orders Name Type Priority Associated Diagnoses Order S chedule Simulation for Procedures Routine Primary malignant Ordered: 09/22/2019 Radiation Therapy neoplasm of prostate Planning with high risk of recurrence due to Glendo score of 8 to 10 and PSA greater than 20 documented as of this encounter Results MRI Pelvis wo (Prostate) [...] No osseous metastases i dentified. Trabeculated bladder johnosn with several small diverticula. Procedure Note Rk [...] For questions regarding this report, please contact th e number below. Electronically signed by: Rk sullivan, [facility] ([phone]), at 10/24/2019 1:52 PM Haja Marshall MD IMG MRI ORDERABLES documented in this encounter Visit Diagnoses Diagnosis Primary malignant neoplasm of prostate w ith high risk of recurrence due to Ramon score of 8 to 10 and PSA greater than 20 Primary malignant neoplasm of prostate w ith high risk of recurrence due to Glendo score of 8 to 10 and PSA greater than 20 documented in this encounter
--- OUTSIDE RECORDS SUMMARY | 2022-05-12 01:20 | XMS_ITS | Encounter Summary ---
:1950 Author Organization [facility] [place] [address] Care Team Providers Name Role Phone Unavailable Primary Care Provider Unavailable Encounter Details Date Type Department Care Team Description 07/30/2019 Telephone Radiation Oncology a danny [facility] [place] [phone] Social History Tobacco Use Types Packs/Day Years Used Date Never Assessed Alcohol Habits Answer Date Recorded How often do you have a drink containing alcohol? Monthly or less 08/04/2019 How many drinks containing alcohol do you have on a 1 or 2 08/04/2019 typical day when you are drinking? How often do you have six or more drinks on one Never 08/04/2019 occasion? Comment: Not asked Sex Assigned at Date Recorded Not on file documented as of this encounter Plan of Treatment Upcoming Encounters Date Type Specialty Care Team Description 05/18/2022 Office Visit Radiation Oncology Grace Raymond APRN [facility] RADIATION ONCDEBBIE [place], [place] [address] (Wo rk) 05/18/2022 Infusion Hematology and Oncology documented as of this encounter Visit Diagnoses Not on filedocumented in this encounter
--- OUTSIDE RECORDS SUMMARY | 2022-05-12 01:20 | XMS_ITS | Encounter Summary ---
:1950 Author Organization [facility] Address [address] [place] [address] Care Team Providers Name Role Phone Unavailable Primary Care Provider Unavailable Encounter Details Date Type Department Care Team Description 07/31/2019 Telephone Radiation Oncology a t [facility] Nigel Iraheta [address] [place] [phone] Social History Tobacco Use Types [...] this encounter Miscellaneous Notes Telephone Encounter - Esequiel Nigel - 07/31/2019 11:18 AM EST Radiation Oncology New Patient Scheduling Note I called Rey to inform him that Dr. Woodall has referred him to see Dr. Marshall for a radiation new patient consultation. I have confirmed his appointments on Saturday 08/04 will include a 30 minute visit at 10:30 to see ourclinic nurse, followed by a [address] Marshall. I confirmed our address and answered all of his questions, and our contact information should any further questions or concerns arise. documented in this encounter Plan of Treatment Upcoming Encounters Date Type Specialty Care Team Description 05/18/2022 Office Visit Radiation Oncology Grace Raymond, [employer] [facility] [place] [address] (Wo rk) 05/18/2022 Infusion Hematology and Oncology documented as of this encounter Visit Diagnoses Not on filedocumented in this encounter
--- OUTSIDE RECORDS SUMMARY | 2022-05-12 01:20 | XMS_ITS | Encounter Summary ---
:1950 Author Organization [facility] [place] [address] Care Team Providers Name Role Phone Unavailable Primary Care Provider Unavailable Reason for Visit Consultation (Routine) - Specialty Diagnoses / Procedures Referred By Contact Refer red To Contact Radiation Oncology Diagnoses Malignant neoplasm of prostate Jean-Claude Woodall MD Kapadia, Nirav S, MD Procedures PROSTATE CANCER [address] [place] [address] [place], [place] RADIATION ON [place] [address] [place] [address] Phone: Fax: Referral ID Status Reason Start Date Expiration Date Visits V isipatricia Requested Authorized [id number] 07/28/2019 07/27/2020 1 1 Encounter Details Date Type Department Care Team Description 08/04/2019 Office Visit Radiation Oncology at Haja Marshall P rimary malignant [facility] neoplasm of prostate [facility] [address] [place] [address] DR with high risk of [place], [place] RADIATION ONCOL OGY recurrence due to [id number] [place], [place] Ramon score of 8 to [phone] 10 and PSA greater [phone] (Wo rk) than 20 Social History Tobacco [...] Sign Reading Time Taken Comments Blood Pressure 130/77 08/04/2019 11:00 AM EST Pulse 71 08/04/2019 11:00 AM EST Temperature 36.4 ??C (97.5 ??F) 08/04/2019 11:00 AM EST Respiratory Rate 16 08/04/2019 11:00 AM EST Oxygen Saturation 99% 08/04/2019 11:00 AM EST Inhaled Oxygen Concentration - - Weight 71.6 kg (157 lb 12.8 oz) 08/04/2019 11:00 AM EST Height - - Body Mass Index - - documented in this encounter Patient Instructions Patient InstructionsHaja Marshall MD - 08/04/2019 11:00 AM EST Dear Mr. Jean Baptiste, Dr. Woodall asked for me to see you to discuss how radiation therapy can be used to treat your prostate cancer and this note is to recap our discussion regarding use of radiation treatments. As your radiation oncologist, I work closely with your other healthcare providers and most importantly, with you to make sure that the treatments we discuss and offer keep your personal preferences and goals in mind. We discussed the following next steps as part of your cancer evaluation and/or treatment: 1. The aggressiveness of your prostate cancer: You technically have high risk prostate cancer, which is a risk given to your cancer of coming back after treatment. This is based on three things 1. Your PSA (the blood test) was 13.5. PSA values below 10 are considered low risk and 10-20 are considered medium risk and above 20 are considered high risk. 2. Your highest Ramon score was 9 (this is how aggressive your prostate cancer looks under the microscope). Ramon scores for cancer range from 6-10, and 6 is considered lowest risk, while scores of8-10 are considered higher risk. 3. How aggressive your prostate cancer felt when Dr. Woodall did the prostate exam (through the rectum). The decision to treat prostate cancer is based on both the risk that the cancer can kill you and your general overall health. I agree with Dr. Woodall's recommendation that this should be treated since we would otherwise expect you to live a normal length of life. 2. Radiation Treatment Options: Radiation for your prostate cancer can be done in either 9 weeks with external beam radiation alone, or in 5 weeks of external beam radiation PLUS a radioactive seed implant. Recent studies seem to suggest that for patients like you, adding the radioactive seed implant to a 5 week course of treatment may be better than standard external beam radiation alone. If you'd like to consider this option, I can refer you to my colleague Dr. Martinez in [place] for a further discussion. However given your urinary symptoms a radioactive implant may have significant toxicity in terms of your urinary function. 3. Fiducial marker and SpaceOAR gel implants: If [...] bills that you might receive, to a rn cardiovascular. In most cases, we have been told, the bills are waived and Medicare is ordered to make the payment. These procedures will be performed here in our clinic, and our nursing team will provide you instructions with how to prepare yourself. It takes approximately 2 hours from when you arrive to when you leave the building. 4. Radiation Therapy and Planning: Radiation therapy involves [...] of treatment. I anticipate you would receive 44 treatments total, daily Sunday-Sunday. Your start date and time would be provided once the simulation scan is completed. During your radiation treatments, you can expect to see me once per week so that I can examine you to make sure you are tolerating radiation treatments and so that we can monitor your response to treatment. 5. SIDE EFFECTS - Short Term: We discussed [...] resolve within 4-6 weeks of completion radiation. 6. SIDE EFFECTS - Usp: These can include be permanent damage of the radiated tissues, including the rectum/bowel, bladder, prostate and surrounding tissues. Potential serious injury is rare, but can include poor wound healing, bleeding, or destruction of healthy tissue that may require surgery to repair and may result in a colostomy (bag for defecation) or urostomy (bag for urination). There may be a slow, long-term decrease in your sexual function as well, [...] but is something to be aware of. 7. Hormone therapy: For high risk prostate cancers such as yours, I recommend a course of anti-testosterone therapy for 36 months (typically starting 2 months before radiation, contiuing for 2 months during radiation and ongoing after radiation is completed). This is usually given as a shot that lastsfor 3 months at a time. The reason we recommend this is that the male hormone testosterone is used by prostate cancer as a fuel. By decreasing the body's production of testosterone, we can 'starve' theprostate cancer. The main side effects of hormone therapy include hot flashes, night sweats, weight gain, depressed mood, loss of sexual interest and impotence. There is also a very low risk of heart at tack among men who have recently had a heart attack. These side effects usually reverse within 3-6 months of stopping the hormone therapy when testosterone recovers, although it can take up to a full year. During your radiation treatments we would also give you a pill to take once a day called Casodex (bicaluatamide) that blocks the effect of testosterone in the body. You should start taking this on the same day as your first injection of anti-testosterone shot (today, if you like.) 8. Improving your urinary function before starting radiation: Based on the survey you completed for us, your urinary flow does not seem to be very good right now. Radiation can make this worse, to the point that you may need a catheter to urinate. There are a couple of things that might make it better before we start radiation. One option is to start hormonal treatment as described above and wait about 2-3 months to see if your urination improves. Another possibility is an outpatient surgery called a TURP (TransUrethral Resection of Prostate) to open up your urinary flow. This can either be done at the same time as hormonal treatments or after giving the hormonal treatment a try to see if they improve your urination enough. It is important to keep in mind that radiation would be delayed for at least 4 months (possibly up to 6 months) after the surgery to allow for enough healing so that we avoidradiation damage to your urinary tract after surgery. Please do not hesitate to call me at [phone] with any other questions or concerns you have. If I am not here, one of our radiation oncology nurses can assist you or help you get in touch with me. A Radiation Oncology doctor is also events and promotions assistant after our normal hours and on weekends for urgent questions or concerns related to radiation treatments that can not wait until normal business hours. To reach the on-call doctor after-hours, just call and have the wringer machine operator page the Radiation Oncologist events and promotions assistant. And, as always, if you experience any [...] 7. Uncontrollable bleeding Haja Howe MD, MS Dentistry Professor of Radiation Oncology [facility] documented in this encounter Progress Notes Haja Marshall MD - 08/04/2019 11:00 AM EST Images from the original note were not included. Radiation Oncology Prostate Cancer Consult Note Haja Marshall MD, MS [facility] [phone] PATIENT IDENTIFICATION: PATIENT NAME: Rey Jean Baptiste DATE OF : 1950 REFERRING PROVIDER: Jean-Claude Woodall MD [address] [address] REASON FOR CONSULTATION : Cancer Staging Malignant neoplasm of prostate Staging form: Prostate, AJCC 8th Edition - Clinical: Stage IIIC (cT2, cN0, cM0, PSA: 13.5, Grade Group: 5) - Signed by Haja Marshall MD on 07/31/2019 HISTORY OF PRESENT ILLNESS: Rey Jean Baptiste is a 69 y.o. male recently diagnosed with a high-risk prostate cancer. Presenting Symptoms / Duration: LUTS, elevated PSA and left sided prostate nodule Prior consultations / recommendations: Dr Woodall - 07/25/19: PSA History: 06/2018 - 10.7 06/2019 - 13.5 Pathology Results / Location: 12 core TRUS biopsy (Dr Woodall, 07/04/19) Gl 4+5 x 5 (bilat) Gl 4+4 x 3 (bilat) Gl 4+3 x 1 (left) Gl 3+3 x 1 (left) Pertinent Imaging Studies: TRUS (07/04/19) - asymmetric gland (R>L); 54 cc Bone scan (07/25/19) - no bone mets CT A/P (07/25/19) - thickened bladder wall, no enlarged lymph nodes Rey is here today to discuss radiation therapy for treatment of his recently diagnosed prostate cancer. REVIEW OF SYSTEMS: REVIEW OF SYSTEMS 08/04/2019 Constitutional None of the above Ear / nose / throat / mouth None of the above Eyes Dry eyes Respiratory None of the above Gastrointestinal None of the above Skin, hair None of the above Musculoskeletal None of the above Neurological None of the above Hematologic / Lymphatic None of the above Genitourinary Frequent urination He has never had a colonoscopy. A comprehensive 14 point review of systems was conducted with this patient and is otherwise negativeexcept as documented above. Baseline KELL and IPSS are as below: These scores represent symptoms [facility] Prostate Scores and Responses 08/04/2019 Confidence, level - past 6 months Moderate Penetration - past 6 months No sexual activity Penetration, maintain - past 6 months Almost always or always Erection, maintain - past 6 months Not difficult Sexual satisfaction - past 6 months Most times (much more than half the time) Sexual Health in Men 17 (MILD ED) Incomplete emptying About half the time Frequency About half the time Intermittency About half the time Urgency Less than half the time Weak Stream Less than half the time Straining Not at all Nocturia 3 times Quality of life Unhappy Total IPSS Score 16 (MODERATE LUTS) PAST MEDICAL HISTORY Past Medical History: Diagnosis Date ??? Lactose intolerance ??? Prostate cancer Past Surgical History: Procedure Laterality Date ??? PROSTATE BIOPSY 07/04/2019 CONTRAINDICATIONS TO RADIATION THERAPY: None ?? Prior radiation therapy: No ?? Active Lupus: No ?? Systemic Scleroderma: No MEDICATIONS / ALLERGIES: Medications <Not Reviewed> Medication Sig Taking? tamsulosin (FLOMAX) 0.4 mg Capsule nightly. 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 Cancer Maternal Grandfather 80 throat PHYSICAL EXAM BP 130/77 Pulse 71 Temp 36.4 ??C (97.5 ??F) Resp 16 Wt 71.6 kg (157 lb 12.8 oz) SpO2 99% General: alert, well appearing, and in no distress sitting in exam room with and daughter at side KARLY: deferred TODAY'S PERFORMANCE STATUS: KPS Score ECOG Grade Definition X 90-100 [...] selfcare; totally confined to bed or chair ASSESSMENT / PLAN: Rey Jean Baptiste is a 69 y.o. man diagnosed with high-risk prostate cancer (cT2, Gl 4+5, PSA 13.5). Today we reviewed the risks, benefits, rationale, implications and alternatives of the various management options. Fortunately he was well informed regarding these options, especially the surgical approach by Dr. Woodall, so we spent the remainder of the discussion focusing on radiation therapy. Briefly, though, we reviewed that the three major options, which include radical prostatectomy, radiation therapy, and active surveillance with delayed curative intent. Prostatectomy and surveillance were bothcounseled against, given the volume and high grade nature of prostate cancer. With regard to his radiation options, we reviewed both external beam and brachytherapy. Given that he has unfavorable intermediate risk/high risk disease, brachytherapy is a consideration and would typically be administered as a boost, in addition to a 5 week course of pelvic field radiotherapy and long-term ADT, per ASCENDE-RT (Bipin et al, IJROBP February 2017, Vol98(2), p275). We reviewed that in general treatment efficacy is similar between radiation therapy and surgery, buthave varying logistic concerns and side effects. With regard to brachytherapy, we discussed the benefit in terms of added PSA control that can be achieved with a brachytherapy boost, but that it comes with added morbidity with - as yet - uncertain benefits in terms of disease-specific survival endpoints. In the short term, I reviewed the common irritative bowel and bladder side effects associated with all forms of radiotherapy. Given his severe LUTS at present we discussed its implications in 2 ways. First, it would argue against a brachytherapy boost out of concern for increased obstructive symptoms.Even without a brachytherapy implant, directly proceeding towards RT may result in need for at leastISC. Mitigation strategies were reviewed today - including ADT and/or TURP prior to starting RT. We discussed a possible referral back to Dr. Woodall for TURP prior to starting RT and it seems this has already been presented to Rey. We also discussed that after TURP, we would not routinely start radioth erapy for at least 3 if not longer to allow for complete healing and avoid urethral necrosis. In thelong term, I explained there is an approximately 2% chance of serious bladder or rectal toxicity as well as a very low risk of inducing a secondary malignancy. I also reviewed that with radiation thereare few reliable salvage curative options. Logistics of external beam treatment were also reviewed, including the role of fiducial marker placement with or without spaceOAR hydrogel placement, simulation, and treatment. I also reviewed the role of long-term ADT and side effects associated with this treatment. He understands there is a survival benefit when ADT is added to radiotherapy, and that side effects can include diminished libido, hot flashes, weight gain, mood swings, depression and/or osteoporosis. A depot Lupron injection will be administered later today. A prescription for casodex to take for the durationof RT will be sent to his local pharmacy as well. Clinical trials were also reviewed briefly. He is not a candidate for any currently open trials at [facility]. On balance, Rey wishes to proceed with a trial of ADT prior to consideration of TURP. If LUTS have resolved with ADT we will move toward RT early next year. If LUTS persist I will discuss scheduling of TURP w Dr Woodall. Follow-up appointments will be made accordingly. Informed consent was not obtainedtoday in clinic. (I will defer this until closer to the time of radiotherapy.) All of his questions were answered to his satisfaction, and we have provided him with our contact information should any further questions or concerns arise. SUMMARY OF PLAN / RECOMMENDATION: 1. Intent of therapy: Curative 2. Clinical Trial Availability: No 3. Initiate ADT in meantime (Lupron 22.5mg IM today, casodex 50mg po qd today) 4. RV 4-6 weeks to assess LUTS TIME ATTESTATION: At least 50 minutes of this 60 minute visit was spent with the patient [id number] reviewing his interval medical history and answering questions related to his prostate cancer. HAJA MARSHALL MD, MS Clara Hameed RN - 08/04/2019 11:00 AM EST RADIATION ONCOLOGY NURSING INITIAL NURSING ASSESSMENT IDENTIFICATION: Rey Jean Baptiste is a 69 y.o. year-old male with prostate cancer PRESENTING SYMPTOMS/CHIEF COMPLAINT: REVIEW OF SYSTEMS: Review of Systems - Oncology REVIEW OF SYSTEMS 08/04/2019 Constitutional None of the above Ear / nose / throat / mouth None of the above Eyes Dry eyes Respiratory None of the above Gastrointestinal None of the above Skin, hair None of the above Musculoskeletal None of the above Neurological None of the above Hematologic / Lymphatic None of the above Genitourinary Frequent urination IN THE PAST 12 MONTHS HAVE YOU: Fallen more than one time? No Injured yourself as result of the fall? No Experienced difficulty with walking/problems with balance? No Do you use any assistive devices? No Any history of collagen vascular diseases:No Any Implanted Devices/Hardware: No If yes please put alert in ARIA patient summary Prior Radiotherapy: No Prior Chemotherapy: No Prior Hormone Therapy: No Other: Patient denies history of sclera derma and Lupus LEARNING ASSESSMENT REVIEWED: Yes ADVANCED DIRECTIVE: Not discussed today. PAIN ASSESSMENT: [0] out of 10 *eD-H Adult PCS Flow Sheet if 4 or above SOCIAL ASSESSMENT: See EDH social assessment information entered. Support Systems: lives with . She and his daughter accompanied him today Barriers to treatment: Financial concerns. only has medicare. [facility] is assisting him. Referrals/Interventions: hide worker on day per routine. RADIATION SPECIFIC TEACHING:Will provide the following information on day [facility] Radiation Therapy and You Site specific teaching : Other: PLAN: Per Dr Marshall's note documented in this encounter Plan of Treatment Upcoming Encounters Date Type Specialty Care Team Description 05/18/2022 Office Visit Radiation Oncology Grace Raymond, MANAGER [employer] [facility] RADIATION [place], [place] [address] (Wo rk) 05/18/2022 Infusion Hematology and Oncology documented as of this encounter Visit Diagnoses Diagnosis Primary malignant neoplasm of prostate w ith high risk of recurrence due to [place] score of 8 to 10 and PSA greater than 20 documented in this encounter
--- OUTSIDE RECORDS SUMMARY | 2022-05-12 01:20 | XMS_ITS | Encounter Summary ---
:1950 Author Organization [facility] [place] [address] Care Team Providers Name Role Phone Unavailable Primary Care Provider Unavailable Encounter Details Date Type Department Care Team Description 07/25/2019 Ancillary Procedure Radiology Library at Haja Marshall MD [address] [facility] [phone] (Wo rk) Social History Tobacco Use Types [...] Office Visit Radiation Oncology Grace Raymond APRN [facility] RADIATION [place], [place] [address] (Wo rk) 05/18/2022 Infusion Hematology and Oncology documented as of this encounter Procedures Procedure Name Priority Date/Time Associated Diagnosis Comme nts FILM LIBRARY Routine 07/25/2019 12:05 AM Results for this STORAGE ONLY CT EDT procedure ar e in ABDOMEN AND PELVIS the resul ts section. documented in this encounter Results Film Library- Storage Only CT Abdomen & Pelvis (07/25/2019 12:05 AM EDT) Specimen (Source) Anatomical Location Collection Method / Collectio n Time Received Time / Laterality Volume Narrative RAD - 08/07/2019 3:15 PM EST This exam is auto-finalizing. It's purpo se is for storage only. Haja Marshall MD IMG FILM LIBRARY ORDERABLES Performing Organization Address City/State/ZIP Code Phon e Number RAD [place], [place] documented in this encounter Visit Diagnoses Not on filedocumented in this encounter
--- OUTSIDE RECORDS SUMMARY | 2022-05-12 01:20 | XMS_ITS | Encounter Summary ---
:1950 Author Organization [facility] [place] [address] Care Team Providers Name Role Phone Unavailable Primary Care Provider Unavailable Encounter Details Date Type Department Care Team Description 07/25/2019 Ancillary Procedure Radiology Library at Haja Marshall MD [address] [facility] [place] [phone] (Wo rk) Social History Tobacco Use Types [...] Visit Radiation Oncology Grace Raymond APRN [facility] RADIATION [place], [place] [address] (Wo rk) 05/18/2022 Infusion Hematology and Oncology documented as of this encounter Procedures Procedure Name Priority Date/Time Associated Diagnosis Comme nts FILM LIBRARY Routine 07/25/2019 12:00 AM Results for this STORAGE ONLY EDT procedure are i n NUCLEAR MEDICINE the results section. documented in this encounter Results Film Library- Storage Only nuclear medicine (07/25/2019 12:00 AM EDT) Specimen (Source) Anatomical Location Collection Method / Collectio n Time Received Time / Laterality Volume Narrative RAD - 08/07/2019 3:13 PM EST This exam is auto-finalizing. It's purpo se is for storage only. Haja Marshall MD IMG FILM LIBRARY ORDERABLES Performing Organization Address City/State/ZIP Code Phon e Number RAD [place], [place] documented in this encounter Visit Diagnoses Not on filedocumented in this encounter
--- OUTSIDE RECORDS SUMMARY | 2022-05-12 01:20 | XMS_ITS | Encounter Summary ---
:1950 Author Organization [facility] [place] [address] Care Team Providers Name Role Phone Unavailable Primary Care Provider Unavailable Encounter Details Date Type Department Care Team Description 07/31/2019 External Results Medical Records Provider, [facility] [place] [address] Social History Tobacco Use Types Packs/Day [...] Visit Radiation Oncology Grace Raymond, [facility] RADIATION [place], [place] [address] (Wo rk) 05/18/2022 Infusion Hematology and Oncology documented as of this encounter Procedures Procedure Name Priority Date/Time Associated Diagnosis Comme nts SURGICAL PATHOLOGY Routine 07/31/2019 Results f or this SCAN procedure are i n the results section . documented in this encounter Results Scan Doc: Surgical Pathology (07/31/2019) Narrative This result has an attachment that is no t available. aHja Marshall MD MEDIA MGR SCAN EXT ORDR/RSLT documented in this encounter Visit Diagnoses Not on filedocumented in this encounter
--- OUTSIDE RECORDS SUMMARY | 2022-05-12 01:20 | XMS_ITS | Encounter Summary ---
:1950 Author Organization [facility] [place] [address] Care Team Providers Name Role Phone Unavailable Primary Care Provider Unavailable Encounter Details Date Type Department Care Team Description 07/31/2019 Hospital Encounter Laboratory [facility] [place] [id number] Social History Tobacco Use Types Packs/Day [...] mg 0.8 mg nightly. 11 11/2018 Capsule documented as of this encounter Plan of Treatment Upcoming Encounters Date Type Specialty Care Team Description 05/18/2022 Office Visit Radiation Oncology Grace Raymond APRN [facility] ER RADIATION [place], [place] [address] (Wo rk) 05/18/2022 Infusion Hematology and Oncology documented as of this encounter Procedures Procedure Name Priority Date/Time Associated Diagnosis Comme [facility] SURGICAL PATHOLOGY Routine 07/31/2019 11:39 AM Re sults for this REPORT EST procedure are i n the results section. documented in this encounter Results Surgical Pathology Report (07/31/2019 11:39 AM EST) Component Value Ref Test Analysis Performed At [facility] Range Method Time Signature Surgical [id number] ? Location: [facility] Pathology [place] Report The signing pathologist has (i) examined the relevant preparation(s) for the [facility] specimen(s) and (ii) rendered or confirmed the diagnosis(es) . HOSPITAL LABORATORY . ?Surgic al Pathology DIAGNOSIS CONSULTATION CASE Outside slide(s) labeled [id number], collection date 07/04/20. Prostate needle core biopsies: A) Right base lateral: - Prostatic adenocarcinoma, ?? Grade Group 4 ??(Murray sco re 4+4=8), ?involving 10% (1mm) of a single core. B) Right base med: - ??Prostatic adenocarcinoma, ??Grade Group 5 ??(Ramon sc ore 4+5=9), ?involving 80% (13mm) of a single core. - ??Estimated percent Pattern 5: ~20% - ??Perineural invasion is present. C) Right mid lateral: - Prostatic adenocarcinoma, ?? Grade Group 3 ??(Murray sco re 4+3=7), ?involving <5% of a single core. D) Right mid med: - Prostatic adenocarcinoma, ?? Grade Group 5 ??(Ramon sco re 4+5=9), ?involving 65% (10.5mm) of a single core. - Estimated percent Pattern 5: ~10% - ??Perineural invasion is present. E) Right apex lat: - Prostatic adenocarcinoma, ?? Grade Group 5 ??(Murray sco re 4+5=9), ?involving 65% (9mm) of a single core. - Estimated percent Pattern 5: ~5% - ??Perineural invasion is present. F) Right apex med: - Prostatic adenocarcinoma, ?? Grade Group 5 ??(Murray sco re 4+5=9), ?involving 45% (8mm) of a single core. - Estimated percent Pattern 5: ~15% - ??Perineural invasion is present. G) Left base lat: - Prostatic adenocarcinoma, ?? Grade Group 1 ??(Ramon sco re 3+3=6), ?involving 10% (1.5mm) of a single core. H) Left base med: - Prostatic adenocarcinoma, ?? Grade Group 5 ??(Ramon sco re 4+5=9), ?involving 30% (5mm) of a single core. - Estimated percent Pattern 5: ~5% I) Left mid lat: - ??Benign prostatic tissue. J) Left mid med: - Prostatic adenocarcinoma, ?? Grade Group 2 ??(Ramon sco re 3+4=7), ?involving 25% (3.5mm) of a single core. - Estimated percent Pattern 4: ~40% . DIAGNOSIS K) Left apex lat: - ??Benign prostatic tissue. L) Left apex med: - Prostatic adenocarcinoma, ?? Grade Group 2 ??(Murray sco re 3+4=7), ?involving 10% (1.5mm) of a single core. - Estimated percent Pattern 4: ~30% Electronically signed by: ??MD Gerri, Jax Damon Verified: ??08/04/2019 ?Pathologist Performed at: ??-[facility] Dept. of Pathology, [place], [place] ADDITIONAL STUDIES Whole slide scan: human resources representative slide(s) CLINICAL INFORMATION Specimen Submitted: CONSULTATION CASE A - 24 slide(s) labeled [id number], collection date 9. [id number] Report to: [facility] Surgical Pathology Department [facility], [facility], [address]nd Floor [address] [place] [address] ??[id number] SPECIMEN PROCESSING [facility] ([facility]) pathology slide(s) are reviewed. ??Refer to Diagnosis and Specimen Submitted for specific case infor bean. For the full text of the [facility] report(s) please refer t o Non- Documentation Pathology in the electronic health record (eDH). Specimen (Source) Anatomical Collection Method Collection Time Re ceived Time Location / / Volume Laterality 07/31/2019 11:39 AM EST Haja Marshall MD PATHOLOGY/CYTOLOGY ORDERABLE S Performing Organization Address City/State/[place] [address] documented in this encounter Visit Diagnoses Not on filedocumented in this encounter
[2022-05-12 14:33] LABS: Abs Immature Grans 0.04 10^3/uL (0.0-0.06); Absolute Basophil Count 0.09 10^3/uL (0.0-0.2); Absolute Eosinophil Count 0.24 10^3/uL (0.0-0.7); Absolute Lymphocyte Count 1.55 10^3/uL (1.2-3.4); Absolute Monocyte Count 1.15 10^3/uL (0.1-0.8); Absolute Neutrophil Count 6.52 10^3/uL (1.2-6.7); Basophils % 0.9; Eosinophils % 2.5; HCT 43.7 % (40.0-50.0); HGB 14.2 g/dL (13.5-17.5); Immature Grans % 0.4; Lymphocytes % 16.2; MCH 26.7 pg (27.0-33.0); MCHC 32.5 % (32.0-36.0); MCV 82 fL (80-95); MPV 9.4 fL (8.0-11.0); Platelet Count 218 10^3/uL (130-400); RBC 5.32 10^6/uL (4.36-5.78); RDW 12.2 % (11.8-14.1); RDW-SD 36.8 fL; WBC 9.59 10^3/uL (4.4-10.8)
[2022-05-12 16:03] LABS: ALT 24 U/L (16-63); AST 16 U/L (15-37); Albumin 3.6 g/dL (3.4-5.0); Alkaline Phosphatase 139 U/L (46-116); Anion Gap 9.3 mmol/L (3-11); BUN 16 mg/dL (7-18); Bilirubin, Total 0.3 mg/dL (0.2-1.0); CO2 28.7 mmol/L (21.0-32.0); CREATININE 0.9 mg/dL (0.70-1.30); Chloride 105 mmol/L (98-107); Glucose 115 mg/dL (74-106); Potassium 3.6 mmol/L (3.5-5.1); Sodium 143 mmol/L (136-145); Total Protein 7.2 g/dL (6.4-8.2)
[2022-05-15 14:18] LABS: PSA, Ultrasensitive <0.01 ng/mL (<= 6.5)
[2022-05-16 20:11] LABS: Testosterone, Total <7.0 ng/dL (240-950)
== END 2022-05-12 01:14 | disposition home or self-care (01) ==
LOC: LBO 01:13
PROVIDERS: PCP Nurse Practitioner; Visit Provider Nurse Practitioner Family
DX: C61 Malignant neoplasm of prostate (principal)
CPT/HCPCS: 36415; 80053; 84153; 84403; 85025

== ENCOUNTER 2022-08-15 03:03 | Outpatient (CLI) | payer MEDICARE, SELFPAY ==
[2022-08-15 15:10] LABS: Abs Immature Grans 0.05 10^3/uL (0.0-0.06); Absolute Basophil Count 0.08 10^3/uL (0.0-0.2); Absolute Eosinophil Count 0.19 10^3/uL (0.0-0.7); Absolute Lymphocyte Count 1.69 10^3/uL (1.2-3.4); Absolute Monocyte Count 1.79 10^3/uL (0.1-0.8); Absolute Neutrophil Count 8.11 10^3/uL (1.2-6.7); Basophils % 0.7; Eosinophils % 1.6; HCT 43.1 % (40.0-50.0); Immature Grans % 0.4; Lymphocytes % 14.2; MCH 27.1 pg (27.0-33.0); MCHC 32.5 % (32.0-36.0); MCV 83 fL (80-95); MPV 8.7 fL (8.0-11.0); Neutrophils % 68.1; Platelet Count 224 10^3/uL (130-400); RBC 5.17 10^6/uL (4.36-5.78); RDW 12.2 % (11.8-14.1); RDW-SD 37.6 fL; WBC 11.91 10^3/uL (4.4-10.8)
[2022-08-15 15:35] LABS: ALT 20 U/L (16-63); AST 18 U/L (15-37); Albumin 3.7 g/dL (3.4-5.0); Alkaline Phosphatase 145 U/L (46-116); Anion Gap 5.9 mmol/L (3-11); BUN 16 mg/dL (7-18); Bilirubin, Total 0.4 mg/dL (0.2-1.0); CO2 28.1 mmol/L (21.0-32.0); Chloride 105 mmol/L (98-107); Estimated GFR 79.97 (mL/min/1.73m2); Glucose 108 mg/dL (74-106); Potassium 4.1 mmol/L (3.5-5.1); Sodium 139 mmol/L (136-145); Total Protein 7.3 g/dL (6.4-8.2)
[2022-08-15 16:07] LABS: Diff Comment Agrees w/ Instrument; RBC Morphology Normal
[2022-08-18 11:51] LABS: PSA, Ultrasensitive <0.01 ng/mL (<= 6.5)
[2022-08-19 16:57] LABS: Testosterone, Total 7.1 ng/dL (240-950)
== END 2022-08-15 03:04 | disposition home or self-care (01) ==
LOC: LBO 03:03
PROVIDERS: PCP Nurse Practitioner; Visit Provider Nurse Practitioner Family
DX: C61 Malignant neoplasm of prostate (principal)
CPT/HCPCS: 36415; 80053; 84153; 84403; 85025

== ENCOUNTER 2022-09-01 17:19 | Emergency (ER) | payer MEDICARE, SELFPAY ==
[2022-09-01 17:35] VITALS: BP 148/79; PULSE 73; RESP 15; O2SAT 97
--- NOTE | 2022-09-01 17:55 | ED.GENADUL_ITS ---
Discharge Plan Disposition Patient Disposition: Home Condition: Improving Discharge Details Clinical Impression: Food impaction of esophagus Primary Care Provider: Demi Tijerina ED Provider: Emmett Acharya Home Meds and New Rx's Prescriptions: Continued atorvastatin 40 mg tablet 40 mg PO DAILY tamsulosin [Flomax] 0.4 mg capsule 0.8 mg PO DAILY Qty: 180 3RF Rx Instructions: Take 2 caps daily Discharge Instructions Additional Instructions: You were able to pass the food bolus without any additional difficulty and now are asymptomatic. Please watch for new or worsening symptoms and return to the ER for any concerns. Medical Decision Making 72-year-old gentleman presents with a primary rib esophageal food bolus. This is never happened previously. Clinically he appears well, nontoxic but unable to swallow. We discussed options, he would like to avoid an IV if at all possible and is open to trialing easy granule effervescence. Patient was able to tolerate the easy granule effervescence drink, soon after he tells me he was able to pass the food bolus and is now back to baseline. He is able to manage his own secretions and he has been able to tolerate p.o. intake without difficulty. Patient is asymptomatic and requesting discharge. Standard discharge and return precautions were provided. Patient understands, is agreeable to this plan, and has no additional questions or concerns upon discharge. This documentation was generated using Novaledation system, please disregard any oddities of phrase or misspellings. Medical Records Medical records reviewed: Yes I reviewed the patient's medical records. Sign Out No HPI General Mode of arrival: ambulatory . Date/Time Provider Initiated Documentation: 09/01/22 17:28 . Limitations to Documentation: no limitations . Information obtained by: patient and family . HPI Narrative: 72-year-old gentleman who denies significant past medical history reports that just prior to arrival he was eating prime rib, attempted to drink some liquids, and accidentally swallowed prime rib, now it is stuck in his throat. He is unable to eat or drink anything and continues to spit up saliva. He has no additional concerns or complaints, this is never happened before. He denies any difficulty speaking or breathing. Denies chest pain or shortness of breath. Denies abdominal pain. Related Data Home Medications Medication Instructions Recorded Confirmed atorvastatin 40 mg tablet 40 mg PO DAILY 11/11/20 tamsulosin 0.4 mg capsule (Flomax) 0.8 mg PO DAILY #180 caps 11/14/21 11/14/21 Previous Rx's Medication Instructions Recorded tamsulosin 0.4 mg capsule (Flomax) 0.8 mg PO DAILY #180 caps 11/14/21 Allergies Allergy/AdvReac Type Severity Reaction Status Date / Time No Known Allergies Allergy Verified 11/08/19 15:36 General Stated Complaint: GenMedical JODIE: 3 Review of Systems Cardiovascular Cardiovascular: Denies chest pain and Denies dyspnea Respiratory Respiratory: Denies cough and Denies dyspnea Gastrointestinal Gastrointestinal: Denies abdominal pain, Denies nausea and Reports vomiting Musculoskeletal Musculoskeletal: Denies back pain PFSH All Active Problems Food impaction of esophagus (Acute) Acute urinary retention (Acute) Prostate cancer (Chronic) BPH (benign prostatic hyperplasia) (Chronic) prior thao placement for urinary retention Medical History Complicated UTI (urinary tract infection) Elevated PSA History of lower leg fracture right History of shoulder fracture left Prostate nodule Family History Father Heart disease age 57 from [place] Mother No problems noted. Brother , unknown cause of No problems noted. Sister No problems noted. Sister No problems noted. Social History Smoking/Tobacco Use Status: Never Smoking risk assessment performed?: Yes Alcohol Intake: current Alcohol Intake frequency: holidays/special occasions only Drug use: Never Substance use type: does not use Do you feel safe at home: Yes Do you feel safe in your relationship?: Yes Exam Const General: cooperative, healthy appearing and no acute distress Orientation: alert and awake [facility] Head: normal to inspection, normocephalic and atraumatic Mouth: oral mucosae normal and moist mucous membranes Throat: posterior oropharynx normal Eyes Conjunctivae: conjunctivae normal Neck Neck: normal visual inspection, full ROM, no meningeal signs, trachea midline and supple Resp Effort & Inspection: normal respiratory effort and able to speak in complete sentences Auscultation: clear to auscultation bilaterally Cardio Rate: regular rate Rhythm: regular rhythm GI Palpation: soft, not firm, no guarding, no pulsatile masses and nontender Auscultation: normal bowel sounds Back/Spine/Pelvis Back: No back tenderness Skin General skin exam: no rashes or lesions noted Neuro General: patient alert, patient awake, moves all extremities and no focal motor deficits Cognition: normal cognition Speech: speech normal Gait: normal gait Sensory Exam: no sensory deficits noted Psych Appearance: grossly normal Mental Status: mental status grossly normal Course Vital Signs Vital signs: Vital Signs Pulse 73 09/01/22 17:35 Respiratory Rate 15 09/01/22 17:35 Blood Pressure 148/79 H 09/01/22 17:35 Pulse Oximetry 97 09/01/22 17:35 Pulse 73 09/01/22 17:35 Respiratory Rate 15 09/01/22 17:35 Blood Pressure 148/79 H 09/01/22 17:35 Blood Pressure Position Sitting 09/01/22 17:35 Pulse Oximetry 97 09/01/22 17:35 Oxygen Delivery Method Room Air 09/01/22 17:35 Oxygen Flow Rate 0 09/01/22 17:35 Pain Level 0 09/01/22 17:35
[2022-09-01 18:41] VITALS: BP 134/70; PULSE 82; RESP 15; O2SAT 96
[2022-09-01 19:07] VITALS: RESP 15
== END 2022-09-01 18:47 | disposition home or self-care (01) ==
PROVIDERS: Emergency Provider Physician Assistant; PCP Nurse Practitioner
DX: T18.128A Food in esophagus causing other injury, initial encounter (principal); X58.XXXA Exposure to other specified factors, initial encounter
CPT/HCPCS: 99282

== ENCOUNTER 2022-09-04 12:59 | Outpatient (REF) | payer MEDICARE, SELFPAY ==
[2022-09-04 15:38] LABS: Abs Immature Grans 0.04 10^3/uL (0.0-0.06); Absolute Basophil Count 0.07 10^3/uL (0.0-0.2); Absolute Eosinophil Count 0.26 10^3/uL (0.0-0.7); Absolute Lymphocyte Count 1.52 10^3/uL (1.2-3.4); Absolute Monocyte Count 1.37 10^3/uL (0.1-0.8); Absolute Neutrophil Count 6.88 10^3/uL (1.2-6.7); Basophils % 0.7; Eosinophils % 2.6; HCT 44.9 % (40.0-50.0); HGB 14.1 g/dL (13.5-17.5); Immature Grans % 0.4; MCH 26.5 pg (27.0-33.0); MCHC 31.4 % (32.0-36.0); MCV 84 fL (80-95); MPV 9.9 fL (8.0-11.0); Monocytes % 13.5; Neutrophils % 67.8; Platelet Count 225 10^3/uL (130-400); RBC 5.33 10^6/uL (4.36-5.78); RDW 12.3 % (11.8-14.1); RDW-SD 37.2 fL; WBC 10.14 10^3/uL (4.4-10.8)
[2022-09-04 16:35] LABS: Hemoglobin A1C 5.9 % (<5.7)
== END 2022-09-04 13:00 | disposition home or self-care (01) ==
LOC: NCHCN 12:59
PROVIDERS: PCP Nurse Practitioner; Visit Provider Nurse Practitioner Family
DX: D72.829 Elevated white blood cell count, unspecified (principal); R73.09 Other abnormal glucose
CPT/HCPCS: 83036; 85025

== ENCOUNTER 2022-11-02 14:57 | Outpatient (CLI) | payer MEDICARE, SELFPAY ==
[2022-11-02 16:21] LABS: Abs Immature Grans 0.04 10^3/uL (0.0-0.06); Absolute Eosinophil Count 0.17 10^3/uL (0.0-0.7); Absolute Lymphocyte Count 1.72 10^3/uL (1.2-3.4); Absolute Monocyte Count 1.56 10^3/uL (0.1-0.8); Absolute Neutrophil Count 7.42 10^3/uL (1.2-6.7); Basophils % 0.9; Eosinophils % 1.5; HCT 45.2 % (40.0-50.0); HGB 14.4 g/dL (13.5-17.5); Immature Grans % 0.4; Lymphocytes % 15.6; MCH 26.9 pg (27.0-33.0); MCHC 31.9 % (32.0-36.0); MCV 84 fL (80-95); MPV 9.9 fL (8.0-11.0); Monocytes % 14.2; Neutrophils % 67.4; Platelet Count 232 10^3/uL (130-400); RBC 5.36 10^6/uL (4.36-5.78); RDW 12.5 % (11.8-14.1); RDW-SD 38.2 fL; WBC 11.01 10^3/uL (4.4-10.8)
[2022-11-02 16:32] LABS: ALT 21 U/L (16-63); AST 20 U/L (15-37); Albumin 3.5 g/dL (3.4-5.0); Alkaline Phosphatase 127 U/L (46-116); Anion Gap 2.9 mmol/L (3-11); BUN 19 mg/dL (7-18); Bilirubin, Total 0.4 mg/dL (0.2-1.0); CO2 32.1 mmol/L (21.0-32.0); CREATININE 0.9 mg/dL (0.70-1.30); Calcium 9.1 mg/dL (8.5-10.1); Chloride 108 mmol/L (98-107); Estimated GFR 90.74 (mL/min/1.73m2); Glucose 116 mg/dL (74-106); Potassium 4.7 mmol/L (3.5-5.1); Sodium 143 mmol/L (136-145); Total Protein 6.8 g/dL (6.4-8.2)
[2022-11-06 11:48] LABS: PSA, Ultrasensitive <0.01 ng/mL (<= 6.5)
[2022-11-08 09:39] LABS: Testosterone, Total <7.0 ng/dL (240-950)
== END 2022-11-02 14:58 | disposition home or self-care (01) ==
LOC: LBO 14:57
PROVIDERS: PCP Nurse Practitioner; Visit Provider Nurse Practitioner Family
DX: C61 Malignant neoplasm of prostate (principal)
CPT/HCPCS: 36415; 80053; 84153; 84403; 85025

== ENCOUNTER → 2022-11-16 10:16 | Outpatient (BNVA) | payer MEDICARE, SELFPAY | PROVIDERS: PCP Nurse Practitioner; Visit Provider Nurse Practitioner Gerontology | DX: N40.1 Benign prostatic hyperplasia with lower urinary tract symptoms (principal); R39.89 Other symptoms and signs involving the genitourinary system; C61 Malignant neoplasm of prostate | CPT/HCPCS: 51798; 99213 ==

== ENCOUNTER → 2023-03-21 07:53 | Outpatient (BNVA) | payer MEDICARE, SELFPAY | PROVIDERS: PCP Nurse Practitioner; Referring Provider Nurse Practitioner; Visit Provider Surgery | DX: Z12.11 Encounter for screening for malignant neoplasm of colon (principal) ==

== ENCOUNTER 2023-04-26 05:52 | Day surgery (SDC) | payer MEDICARE, SELFPAY ==
--- NOTE | 2023-04-25 18:50 | W.PREOPHP ---
Assessment and Plan Assessment and plan (1) Positive colorectal cancer screening using Cologuard test: Status: Acute Assessment and plan: We reviwed the plan for colonoscopy again today as well as the risks and benefits. We will proceed as planned. History of Present Illness History of Present Illness Chief Complaint: Positive cologuard test Narrative: He is 73 years old, and he is here today because of a positive Cologuard test.? He needs a follow up screening colonoscopy.? He has never had a colonoscopy before.? He denies any family history of colon or rectal cancers.? He does have a personal history of prostate cancer, as well as hemorrhoids.? Additionally his past medical history is significant for some peripheral vascular disease, which required vascular stenting.? He is currently asymptomatic. Since his last visit, he has had no significant interval changes in the history or physical exam. PFSH All Active Problems Positive colorectal cancer screening using Cologuard test (Acute) Hemorrhoids (Acute) Acute urinary retention (Acute) Prostate cancer (Chronic) BPH (benign prostatic hyperplasia) (Chronic) prior thao placement for urinary retention Medical History Arterial occlusive disease Blood glucose elevated Calf pain Complicated UTI (urinary tract infection) Elevated PSA History of lower leg fracture right History of shoulder fracture left Leg pain, bilateral Prostate nodule Family History Father Heart disease age 57 from [place] Mother No problems noted. Brother , unknown cause of No problems noted. Sister No problems noted. Sister No problems noted. Social History Smoking/Tobacco Use Status: Never Smoking risk assessment performed?: Yes Alcohol Intake: never Drug use: Never Substance use type: does not use Housing: house Current gender identity: male Do you feel safe at home: Yes Do you feel safe in your relationship?: Yes Meds Allergies and Home Medications Allergies Allergy/AdvReac Type Severity Reaction Status Date / Time cilostazol [From Pletal] Allergy Severe Verified 04/25/23 09:00 Home Medications Medication Instructions Recorded Confirmed Type atorvastatin 40 mg tablet 40 mg PO DAILY 11/11/20 04/26/23 History aspirin 81 mg tablet,delayed 81 mg PO DAILY 03/05/23 04/25/23 History release tamsulosin 0.4 mg capsule (Flomax) 0.8 mg PO HS 04/25/23 04/26/23 History Exam Const General: cooperative, healthy appearing and comfortable Orientation: awake and oriented x3 Eyes General: appearance normal, both eyes and all related structures Conjunctivae: conjunctivae normal Sclera: sclerae normal Resp Effort & Inspection: normal respiratory effort and able to speak in complete sentences Auscultation: clear to auscultation bilaterally Cardio Jugular venous pressure: no JVD Rate: regular rate GI Inspection: non-distended Palpation: soft, no guarding, no hernias and nontender Auscultation: normal bowel sounds Skin General skin exam: normal turgor Neuro General: patient alert, patient awake and patient oriented x3 Cognition: normal cognition Extrem Right lower extremity: no edema Left lower extremity: no edema
--- NOTE | 2023-04-25 18:51 | W.PM.DSUDISC ---
Date of service: 04/26/23 Time of Service: 08:08 Discharge Plan Disposition Patient Disposition: Home Condition: Good Discharge Details Reason For Visit: Screening colonoscopy Attending Provider: Enoch Iraheta Primary Care Provider: Ursula Jacob Home Meds and New Rx's Prescriptions: Continued atorvastatin 40 mg tablet 40 mg PO DAILY aspirin 81 mg tablet,delayed release (DR/EC) 81 mg PO DAILY tamsulosin [Flomax] 0.4 mg capsule 0.8 mg PO HS Rx Instructions: Take 2 caps daily Discontinued polyethylene glycol 3350 17 gram/dose powder 238 g PO ONCE Qty: 238 0RF Rx Instructions: take per colonoscopy instructions bisacodyl [Dulcolax (bisacodyl)] 5 mg tablet,delayed release (DR/EC) 5 mg PO ONCE Qty: 4 0RF Rx Instructions: take per colonoscopy instructions Discharge Instructions Instructions: Colorectal Polyps (GEN), Hemorrhoids (GEN) Additional Instructions: Rey, we were able to do your colonoscopy today without any problems. You did great. I did find 2 polyps, both were in your cecum, which is the first part of the large intestine, right after the connection between the small and large intestine. I removed both the polyps completely. We will take a little bit of time to get the results regarding the type of polyps, and I will be in touch at that point regarding my next recommendations. As you mentioned beforehand, you do also have some internal hemorrhoids. There is one dominant hemorrhoid right now. Based on the size, I suspect the majority of your hemorrhoid disease could be treated with simple [id number] regimens, such as Preparation H, or other hemorrhoid suppositories. Maintaining a diet that is rich in fiber, and staying well-hydrated will also help reduce the symptoms of hemorrhoids. If they continue to bother you, I could certainly band them or excise them in the operating room. In the meantime, follow the instructions below, and I will be in touch regarding your pathology results. 1. If tolerated, consume a soft, low fiber diet for 1-2 days. [address] Do not drive, drink alcohol, operate machinery, make critical decisions, or do activities that require coordination or balance for 24 hours. 3. Because air was put into your colon during the procedure, expelling air from your rectum (passing gas or farting) is normal. 4. You may not have a bowel movement for 1-3 days because of the colonoscopy prep. This is normal. 5. Go directly to the emergency room if you notice any of the following: Develop chills (warm to touch), or if you have a thermometer and your temperature is above 101 Difficulty breathing or difficultly swallowing Persistent vomiting Severe abdominal pain, other than gas cramps Severe chest pain Black, tarry stools Any bleeding ? exceeding one tablespoon 6. Call your physician if the site where your intravenous was started becomes red, swollen, painful, and warm to touch. 7. Your physician has reviewed your pre-procedure medications. Please continue to take those medications as previously ordered. You will be given specific information/education regarding any changes to your medications before leaving. Activity:: Activity as Tolerated Diet:: As Tolerated Discharge Orders Discharge Orders: Discharge Order (Routine); Ordered 04/25/23 Ordered By: Enoch Iraheta DS: Diagnosis Discharge Diagnosis (1) Positive colorectal cancer screening using Cologuard test: Status: Acute Asessment and Plan: I will follow-up on pathology results
--- NOTE | 2023-04-25 18:52 | W.COLOREPORT ---
Date of service: 04/26/23 Time of Service: 08:11 Colonoscopy Report Date of procedure: 04/26/23 Pre-op diagnosis general: Positive cologuard test Post-op diagnosis procedure note: other (Cecal polyps, internal hemorrhoids) Procedure: Colonoscopy with polypectomy Surgeon: Enoch Iraheta Anesthesia Type: General:No Airway Estimated blood loss (mL): 5 Pathology: other (Cecal polyps x2) Complications: None Disposition: same day Indications: He is 73 years old, and he is here today because of a positive Cologuard test.? He needs a follow up screening colonoscopy.? Prep: Miralax/Dulcolax Procedure Start Time: 07:32 Procedure End Time: 07:56 Retraction Time: 16 Findings: Grade 2 internal hemorrhoids, cecal polyps Procedure Description: After the induction of monitored anesthetic care, and with the patient in left lateral decubitus position, I began by performing an external anorectal exam.? Perineum and skin were normal, as was the anal verge.? There was no evidence of external hemorrhoids.? There was a prolapsed internal hemorrhoid that reduce spontaneously next, I performed a digital rectal exam.? I did not appreciate any abnormal findings.? Next, I advanced a colonoscope into the rectal vault.? I performed retroflexion.? There are internal hemorrhoids.? Using insufflation, I then advanced the colonoscope beyond the rectal folds and into the sigmoid colon before advancing towards the cecum.? The quality of the prep was adequate.? The scope was noted to be in the cecum by identification of the ileocecal valve and appendiceal orifice.? I then began withdrawing the colonoscope using repeated irrigation as necessary for full evaluation of the colonic mucosa. Within the cecum, and just into the ascending colon there were 2 polyps. The smaller was approximately 0.5 centimeters, and it was slightly pedunculated. The larger was about 0.75 cm and also pedunculated. Both were removed with energized snare polypectomy. Once the scope was withdrawn to the level of the rectum, great care was taken to examine portions of the rectal folds.? Finally, the scope was withdrawn and the patient was brought to the same-day surgery recovery unit as the anesthetic wore off. ?The findings and instructions were shared with the patient prior to discharge.
[2023-04-26 06:15] VITALS: BP 142/82; PULSE 84; RESP 18; TEMP 36.4; O2SAT 97
[2023-04-26] MEDS: Lactated Ringers 1,000 ML 80 ML IV (06:39)
--- NOTE | 2023-04-26 06:46 | ANES.PREOP_ITS ---
General Info Date of Service Date Performed: 04/26/23 Height: 5 ft 8 in Weight: 94.5 kg Body Mass Index (BMI): 31.6 Surgical Procedure: Operation Date: 04/26/23 07:35 Proposed Procedure Side Surgeon ernesto Iraheta MD Meds Allergies and Home Medications Allergies Allergy/AdvReac Type Severity Reaction Status Date / Time cilostazol [From Pletal] Allergy Severe Verified 04/25/23 09:00 Home Medication Medication Instructions Recorded atorvastatin 40 mg tablet 40 mg PO DAILY 11/11/20 aspirin 81 mg tablet,delayed 81 mg PO DAILY 03/05/23 release tamsulosin 0.4 mg capsule (Flomax) 0.8 mg PO HS 04/25/23 Current Visit Medications: Current Medications Generic Name Dose Route Start Last Admin Trade Name Freq PRN Reason Stop Dose Admin Hyoscyamine Sulfate 0.125 mg 04/25/23 18:54 Hyoscyamine 0.125 Mg Sl/Oral/Chew SL 05/25/23 18:53 DIRECTED PRN Ringer's Solution 1,000 mls @ 80 mls/hr 04/26/23 06:00 04/26/23 06:39 IV 04/26/23 23:59 80 mls/hr INFUSION JD Administration IV Miscellaneous Supplies 1 each 04/26/23 06:00 Iv Access IV 04/26/23 23:59 DIRECTED JD Ondansetron HCl 4 mg 04/25/23 18:54 Ondansetron 4 Mg/2 Ml Vial IVP 05/25/23 18:53 Q4H PRN PRN Nausea / Vomiting Sodium Chloride 0 ml 04/26/23 06:00 Normal Saline Flush 10 Ml Syr IV 04/26/23 23:59 PRN PRN Sodium Chloride 0 ml 04/26/23 06:00 Normal Saline 10 Ml Vial IJ 04/26/23 23:59 DIRECTED PRN Sterile Water 0 ml 04/26/23 06:00 Water,Injection,Sterile 10 Ml Vial IJ 04/26/23 23:59 DIRECTED PRN PFSH Active Problems Active Problems: Problem Status Onset Code Positive colorectal cancer screening using Cologuard test R19.5 Hemorrhoids K64.9 Acute urinary retention R33.8 Prostate cancer C61 BPH (benign prostatic hyperplasia) N40.0 Medical History Medical History Arterial occlusive disease Blood glucose elevated Calf pain Complicated UTI (urinary tract infection) Elevated PSA History of lower leg fracture right History of shoulder fracture left Leg pain, bilateral Prostate nodule Tobacco Smoking/Tobacco Use Status: Never Alcohol Alcohol Intake: never Substance Use Substance use: Never Substance use type: does not use Vital Signs and Lab Results Vital Signs Most Recent Vital Signs in EMR: Most Recent Vital Signs Temp Pulse Resp BP Pulse Ox 36.4 C L 84 18 142/82 H 97 04/26/23 06:15 04/26/23 06:15 04/26/23 06:15 04/26/23 06:15 04/26/23 06:15 Lab Results Blood Type / Crossmatch: No Data to Display Complete Blood Count: No Data to Display Complete Metabolic Panel: No Data to Display Liver Function Panel: No Data to Display Coagulation Panel: No Data to Display Cardiac Panel: No Data to Display Arterial Blood Gas: No Data to Display Venous Blood Gas: No Data to Display Pancreas Panel: No Data to Display Thyroid Panel: No Data to Display Infectious Disease: No Data to Display Blood Cultures: No Data to Display Toxicology Panel: No Data to Display Imaging and Studies Imaging and Studies Study information below may be from another EMR and interpreted by another provider. Please see original notes in EMR for more complete details. EKG Summary: EKG PATIENT NAME: Rey Jean Baptiste #: [id number] ORDERING PROVIDER: Michael Mcneil M.D. PRIMARY CARE PROVIDER:OLINDA WEINER DATE/TIME OF SERVICE: : 1950PERFORMING LOCATION: ER APPROVED REPORT Exam: Resting ECG Reason for Exam: DIZZINESS Patient Location: E HR:74 bpm ECG Measurements Heart Rate 74 AXIS ND 161 P 39 QRSd 81 QRS 7 QT 391 T31 QTc 433 Conclusion Sinus rhythm...normal P axis, V-rate 60- 99 ----- <Electronically signed by MICHAEL MCNEIL MD in OV> E-Sign Date: 11/25/21 E-Sign Time: 1434 ADDENDUM APPROVED REPORT Exam: Resting ECG Reason for Exam: DIZZINESS Patient Location: E HR:74 bpm ECG Measurements Heart Rate 74 AXIS ND 161 P 39 QRSd 81 QRS 7 QT 391 T31 QTc 433 Conclusion Sinus rhythm...normal P axis, V-rate 60- 99 I have reviewed and I agree with the emergency room physician's ECG interpretation. Electronically signed by: <Electronically signed by Michelle Luis M.D. in [place]> 11/25/21 1437 Cosigned by: Anesthesia Assessment and Plan Anesthesia History Personal History: No History of Anesthesia Complications Family History: No Family History of Anesthesia Complications Exercise Tolerance Exercise Tolerance: Metabolic Equivalents>4 Pertinent Negatives Pertinent Negatives: No Symptoms of GERD Cardiac & Pulmonary Exam Cardiac Exam: Normal S1/S2 Heart Sounds Pulmonary Exam: Clear Bilateral Breath Sounds Implantable Cardiac Device Does patient have a Pacemaker or an ICD?: No Airway Exam Known Difficult Airway: No Mallampati Class: 2 Mouth Opening: Normal (> 3cm) Thyromental Distance: Greater than 3 cm Neck Range of Motion: Full ROM Neck Circumference: Normal Teeth Condition: Normal Dentition ASA Classification ASA Score: ASA 2 Emergency Case?: No NPO Status NPO Status: NPO Clears >2 hours, Solids >8 hours Anesthesia Plan Resuscitation Status: Full Code Anesthesia Technique: General Anesthesia Airway Planned: Natural Airway Monitors Used: Standard Monitors
[2023-04-26 07:34] VITALS: BMI 31.6
--- NOTE | 2023-04-26 07:39 | BOWEL_PTH ---
PATIENT: Rey Jean Baptiste LOC: [facility] U#:[id number] AGE/SX: 73/M ROOM: RE04/26/[address]: Enoch Iraheta MD : 1950 BED: DIS: 04/26/2023 SPEC #: [id number] RECD: 04/26/23 13:17 STATUS: [facility] #: [id number] ABAD: 04/26/23 07:[address]: Enoch Iraheta DEPT: Surgical Specimen RECD BY: Mikaela Hamlin ENTERED: 04/26/23 13:18 SP TYPE: Bowel OTHR DR: Ursula Jacob Tissues: 1 - BIOPSY BOWEL Procedures: GROSS AND MICRO LEVEL 4 Comments: [id number]
[2023-04-26 08:00] VITALS: BP 126/82; PULSE 82; RESP 16; TEMP 36.1; O2SAT 96
[2023-04-26 08:35] VITALS: BP 125/76; PULSE 67; RESP 16; TEMP 36.2; O2SAT 97
--- NOTE | 2023-04-26 08:50 | W.ANESPOSTOP ---
Postoperative Evaluation Date, Time and Location Date Performed: 04/26/23 Time Performed: 08:50 Patient Location: Day Surgery Unit Vital Signs Most Recent Imported Vital Signs: Most Recent Vital Signs Temp Pulse Resp BP Pulse Ox 36.1 C L 82 16 126/82 96 04/26/23 08:00 04/26/23 08:00 04/26/23 08:00 04/26/23 08:00 04/26/23 08:00 Pain Score Most Recent Pain Score: Most Recent Pain Score Pain Level 0 04/26/23 08:00 Assessment Mental Status: Awake (Alert & Oriented to Patient Baseline) Airway and Respiratory Function: Patent airway with normal (patient baseline) respiratory exam Cardiovascular Function: Hemodynamically Stable Hydration Status: Adequately Hydrated Nausea & Vomiting: No Nausea or Vomiting Pain: Pt. Denies Any Pain Peripheral Nerve Block: Patient did not receive a nerve block
== END 2023-04-26 08:45 | disposition home or self-care (01) ==
PROVIDERS: PCP Nurse Practitioner Family; Visit Provider Surgery
PROC: 0DJD8ZZ Inspection of Lower Intestinal Tract, Via Natural or Artificial Opening Endoscopic (ICD-10-PCS; CPT 45378; principal; 2023-04-26 07:30)
DX: Z12.11 Encounter for screening for malignant neoplasm of colon (principal); R19.5 Other fecal abnormalities; D37.4 Neoplasm of uncertain behavior of colon
CPT/HCPCS: 45385; 88305

== ENCOUNTER 2023-08-03 04:02 | Outpatient (CLI) | payer MEDICARE, SELFPAY ==
[2023-08-07 12:44] LABS: Testosterone, Total 241 ng/dL (240-950)
[2023-08-09 22:31] LABS: PSA, Ultrasensitive 0.05 ng/mL (<= 6.5)
== END 2023-08-03 04:03 | disposition home or self-care (01) ==
PROVIDERS: PCP Nurse Practitioner Family; Visit Provider Radiology Radiation Oncology
DX: C61 Malignant neoplasm of prostate (principal)
CPT/HCPCS: 36415; 84153; 84403

== ENCOUNTER → 2023-11-15 10:39 | Outpatient (BNVA) | payer MEDICARE, SELFPAY | PROVIDERS: PCP Nurse Practitioner Family; Visit Provider Nurse Practitioner Gerontology | DX: C61 Malignant neoplasm of prostate (principal); N40.0 Benign prostatic hyperplasia without lower urinary tract symptoms | CPT/HCPCS: 51798; 99213 ==

== ENCOUNTER 2024-01-23 05:23 | Outpatient (CLI) | payer MEDICARE, SELFPAY ==
[2024-01-25 11:07] LABS: PSA, Ultrasensitive 0.09 ng/mL (<= 6.5)
== END 2024-01-23 05:24 | disposition home or self-care (01) ==
LOC: LBO 05:23
PROVIDERS: PCP Nurse Practitioner Family; Visit Provider Colon & Rectal Surgery
DX: C61 Malignant neoplasm of prostate (principal)
CPT/HCPCS: 36415; 84153

== ENCOUNTER 2024-02-07 11:54 | Outpatient (REF) | payer MEDICARE, SELFPAY ==
[2024-02-07 16:20] LABS: ALT 21 U/L (16-63); AST 17 U/L (15-37); Albumin 3.7 g/dL (3.4-5.0); Alkaline Phosphatase 113 U/L (46-116); Anion Gap 8.2 mmol/L (3-11); BUN 22 mg/dL (7-18); Bilirubin, Total 0.4 mg/dL (0.2-1.0); CO2 26.8 mmol/L (21.0-32.0); CREATININE 0.9 mg/dL (0.70-1.30); Calcium 8.9 mg/dL (8.5-10.1); Chloride 110 mmol/L (98-107); Estimated GFR 90.18 (mL/min/1.73m2); Glucose 112 mg/dL (74-106); Potassium 5.3 mmol/L (3.5-5.1); Sodium 145 mmol/L (136-145)
[2024-02-07 16:25] LABS: Hemoglobin A1C 5.8 % (<5.7)
== END 2024-02-07 11:55 | disposition home or self-care (01) ==
LOC: NCHCN 11:54
PROVIDERS: PCP Nurse Practitioner Family; Visit Provider Nurse Practitioner Family
DX: R73.03 Prediabetes (principal)
CPT/HCPCS: 80053; 83036

== ENCOUNTER 2024-08-01 15:14 | Outpatient (CLI) | payer MEDICARE, SELFPAY ==
--- OUTSIDE RECORDS SUMMARY | 2024-08-01 15:18 | XMS_ITS | Encounter Summary ---
Author Organization [facility] [place] [address] Care Team Providers Care Supervisor Fur Floor Worker Name Role Phone JenniziggyconsueloUrsula Tenorio Primary Care Provider Encounter Details Date Type Department Care Team (Late Contact Info) Description 07/17/2023 Telephone [place] [phone] Anuja Forbes RN Social History Tobacco Use Types Packs/Day Years Used Date Smoking Tobacco: Never Smokeless Tobacco: Never Alcohol Use Standard Drinks/Week Comments Yes 0 (1 standard drink = 0.6 oz pur e alcohol) occasional beer Sex and Gender Information Value Date Recorded Sex Assigned at Not on file Gender Identity Not on file Sexual Orientation Not on file documented as of this encounter Miscellaneous Notes * Telephone Encounter - Anuja Forbes RN - 07/17/2023 7:56 AM EDT Call placed to PCP's office to inquire if atorvastatin RX could be taken over by PCP as it has jamie couple years since we have seen this Pt. Sondheimer looked in chart and a RX for atorvastatin had been sent by Pt's PCP to [facility] in [place], [place] and was notified. documented in this encounter Plan of Treatment Upcoming Encounters Date Type Department Care Team (Late Contact Info) Description 08/07/2024 9:00 AM EST Office Visit Radiation Oncology at [address] [phone] Gloria Baca PA [facility] [address] [place] [address] documented as of this encounter Visit Diagnoses Not on filedocumented in this encounter Care Teams Supervisor Fur Floor Worker Relationship Specialty Start Date End Date Ursula Jacob [address] [place] [address] PCP - General Family Medicine 03/16/21 documented as of this encounter
--- OUTSIDE RECORDS SUMMARY | 2024-08-01 15:18 | XMS_ITS | Encounter Summary ---
Author Organization [facility] Address [facility] [place] [address] Care Team Providers Care Comic Book Designer Name Role Phone Ursula Jacob Primary Care Provider Encounter Details Date Type Department Care Team (Latest Contact Info) Description 07/28/2024 Travel Social History Tobacco Use Types Packs/Day Years [...] Encounters Date Type Department Care Team (Late st Contact Info) Description 08/07/2024 9:00 AM EST Office Visit Radiation Oncology at [address] [phone] Gloria Baca PA [facility] DR HEMATOLOGY [place] [address] documented as of this encounter Visit Diagnoses Not on filedocumented in this encounter Care Teams Comic Book Designer Relationship Specialty Start Date End Date Ursula Jacob [address] [place] [address] PCP - General Family Medicine 03/16/21 documented as of this encounter
--- OUTSIDE RECORDS SUMMARY | 2024-08-01 15:18 | XMS_ITS | Encounter Summary ---
Author Organization [facility] [place] [address] Care Team Providers Care Yoke Presser Name Role Phone Ursula Jacob Primary Care Provider Reason for Referral * Diagnostic Test (Routine) - Authorized Specialty Diagnoses / Procedures Referred By Contdasha t Referred To Contact Diagnoses PAD (peripheral artery disease) Procedures ROXANNE, legs, multiple levels Beba Jarrett APRN [facility] [place] [address] [facility] [address] [address] Referral ID Status Reason Start Date Expiration Date Visits Requested Visits Authorized [id number] Authorized Specialty Service Requested 07/28/2024 07/28/2025 1 1 Encounter Details Date Type Department Care Team (Late st Contact Info) Description 07/28/2024 11:00 AM EST Office [place] [phone] Beba Jarrett APRN [facility] [place] [address] PAD (peripheral artery disease) Social History Tobacco Use Types Packs/Day Years [...] Sign Reading Time Taken Comments Blood Pressure 122/68 07/28/2024 11:10 AM EST Pulse 57 07/28/2024 11:10 AM EST Temperature - - Respiratory Rate - - Oxygen Saturation - - Inhaled Oxygen Concentration - - Weight 72.6 kg (160 lb) 07/28/2024 11:10 AM EST Height 170.2 cm (5' 7) 07/28/2024 11:10 AM EST Body Mass Index 25.06 07/28/2024 11:10 AM EST documented in this encounter Progress Notes * Beba Jarrett, RESOLUTION SPECIALIST - 07/28/2024 11:00 AM EST Vascular Follow-Up Reason for Visit: Alonso Burks is a 74 y.o. male with PAD HPI: 74 y.o. male with PMH: prostate cancer and PAD with claudication s/p L BRIANA stent graft 04/26/2021. Today, pt reports feeling well overall. He denies surgery or hospitalization since last visit. He denies BLE claudication, rest pain, tissue loss or edema. 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 Patient denies numbness, tingling, weakness of extremities, slurred speech, chest pain, edema, SOB,new vision loss. He takes daily Statin. He stopped taking ASA for unknown reasons. He is a never smoker. Prior Vascular Hx: 04/26/2021: Attempted crossing of left SFA occlusion- Left common iliac artery stent graft placement (VBX 9x59mm), post-dilated to 10mm distally and 12mm proximally ([place]) Atherosclerotic RF: DM (N) HTN (N) CAD (N) CHF (N) HLD (N) CVA (N) Tobacco (N) Problem List: Patient Active Problem List Diagnosis Code Malignant neoplasm of prostate C61 Primary malignant neoplasm of prostate with high risk of recurrence due to [place] score of 8 to 10and PSA greater than 20 C61 Medications: Current Outpatient Medications on File Prior to Visit Medication Sig Dispense Refill atorvastatin (Lipitor) 40 mg Tablet Take 1 tablet by mouth every evening. 90 tablet 3 tamsulosin (FLOMAX) 0.4 mg Capsule 0.8 mg nightly. 11 No current facility-administered medications on file prior to visit. Review of Systems: All other ROS negative except noted in HPI. Physical Exam: BP 122/68 (BP Location (NBP): Left arm, Patient Position: Sitting) Pulse 57 Ht 170.2 cm (5' 7) Wt 72.6 kg (160 lb) BMI 25.06 kg/m?? GEN: Alert and appears stated age. Cooperative. In NAD. HEENT: Normocephalic and atraumatic. CV: RRR. S1/S2 present. Pulm: Clear to auscultation bilaterally. Abd: No palpable aortic pulse or abdominal mass. Soft, non-distended, non-tender to palpation. Skin: Color, texture, turgor normal. No rashes or lesions. Neuro: No gross sensory or motor abnormality. Extremities: Bilateral UE and LE warm and pink. No edema. No wounds. Vascular Exam: R L Carotid Bruit No No Radial 2/2 2/2 Femoral 2/2 2/2 Popliteal 2/2 2/2 DP 1/2 1/2 PT 1/2 1/2 Labs: No results found for this or any previous visit (from the past 24 hour(s)). Studies: Recent Results (from the past 72 hour(s)) ROXANNE, legs, multiple levels Result Value Ref Range VB Text Report Department: Vascular Surgery Lab Patient: [id number] (ALONSO BURKS) CPT: 22322 Referring Physician: SHAHRZAD MARCOS Phone: Indications: F/U PAD, history L iliac stent Diabetes mellitus: No Findings: Right Pressure (mm Hg) ROXANNE Waveform TBI Brachial Artery 125 Dorsalis Pedis (Ankle) Artery 76 0.57 Monophasic Posterior Tibial (Ankle) Artery 82 0.61 Monophasic Great Toe 47 0.35 Left Pressure (mm Hg) ROXANNE Waveform TBI Brachial Artery 134 Dorsalis Pedis (Ankle) Artery 76 0.57 Monophasic Posterior Tibial (Ankle) Artery 78 0.58 Monophasic Great Toe 50 0.37 Interpretation: RIGHT: Moderate lower extremity arterial occlusive disease. No significant change from previous exam. LEFT: Moderate lower extremity arterial occlusive disease. No significant change from previous exam. Previous ABIs with change from previous value: Date RIGHT DP RIGHT PT RT GR TOE RT Sec TOE 0.37 0.48 ---- ---- 0.42(+.05) 0.51(+.03) 0.29 ---- 0.48(+.06) 0.47(-.04) 0.28(-.01) ---- 0.48( .00) 0.58(+.11) 0.34(+.06) ---- 0.45(-.03) 0.50(-.08) 0.29(-.05) ---- 0.58(+.13) 0.66(+.16) 0.36(+.07) ---- Current 0.57(-.01) 0.61(-.05) 0.35(-.01) ---- Date LEFT DP LEFT PT LT GR TOE LT Sec TOE 0.42 0.38 ---- ---- 0.34(-.08) ---- 0.14 ---- 0.47(+.13) 0.00 0.31(+.17) ---- 0.50(+.03) 0.46(+.46) 0.28(-.03) ---- 2 0.49(-.01) 0.44(-.02) 0.35(+.07) ---- 0.56(+.07) 0.52(+.08) 0.36(+.01) ---- Current 0.57(+.01) 0.58(+.06) 0.37(+.01) ---- VB Text Report End of Report Assessment/Plan: 74 y.o. male with PMH: prostate cancer and PAD with claudication s/p L BRIANA stent graft 04/26/21. # PAD Patient with stable PAD. ABIs stable from previous studies and patient is asymptomatic. Patient amenable to the following plan: Recommend patient continue daily statin and resume ASA 81 mg. Recommend tight control of co-morbidities and continued abstinence from smoking. Follow-up in the clinic in 1 year with ABIs. Instructed to call the clinic with any concerns prior to next appointment. Instructed to call 911 for any s/sx of CLI including unilateral increased pain, decreased sensation or temperature, or tissue loss. Beba Jarrett APRN Department of Vascular Surgery documented in this encounter Plan of Treatment Upcoming Encounters Date Type Department Care Team (Late st Contact Info) Description 08/07/2024 9:00 AM EST Office Visit Radiation Oncology at [address] [phone] Gloria Baca PA [facility] [address] [place] [address] documented as of this encounter Visit Diagnoses Diagnosis PAD (peripheral artery disease) Peripheral vascular disease, unspecified documented in this encounter Care Teams Yoke Presser Relationship Specialty Start Date End Date Ursula Jacob [address] [place] [address] PCP - General Family Medicine 03/16/21 documented as of this encounter
--- OUTSIDE RECORDS SUMMARY | 2024-08-01 15:18 | XMS_ITS | Encounter Summary ---
Author Organization [facility] [place] [address] Care Team Providers Care Touring Production Manager Name Role Phone Ursula Jacob Primary Care Provider Reason for Referral * Diagnostic Test (Routine) - Closed Specialty Diagnoses / Procedures Referred By Contac t Referred To Contact Diagnoses PAD (peripheral artery disease) Procedures ROXANNE, legs, multiple levels Zeny Marcos APRN [facility] [place] [address] [facility] Vascular [facility] [address] [place] [address] Referral ID Status Reason Start Date Expiration Date V isits Requested Visits Authorized [id number] Closed Specialty Service Requested 07/27/2023 09/17/2024 1 1 Encounter Details Date Type Department Care Team (Late st Contact Info) Description 07/27/2023 3:30 PM EDT Office [place] [phone] Beba Jarrett [employer] SUPPORT TEACHER [facility] [place] [address] PAD (peripheral artery disease) Social History Tobacco [...] Sign Reading Time Taken Comments Blood Pressure 128/72 07/27/2023 3:28 PM EDT Pulse 56 07/27/2023 3:28 PM EDT Temperature - - Respiratory Rate - - Oxygen Saturation - - Inhaled Oxygen Concentration - - Weight 72.6 kg (160 lb) 07/27/2023 3:28 PM EDT Height 172.7 cm (5' 8) 07/27/2023 3:28 PM EDT Body Mass Index 24.33 07/27/2023 3:28 PM EDT documented in this encounter Progress Notes * Zeny Marcos, [employer]IGH SCHO[employer] LEARNING SUPPORT TEACHER - 07/27/2023 3:30 PM EDT Vascular Follow-Up Reason for Visit: Alonso Burks is a 73 y.o. male presenting for PAD w/ claudication s/p L BRIANA stentgraft 04/26/21. HPI: 73 y.o. male with PMH: prostate cancer and PAD with claudication s/p L BRIANA stent graft 04/26/21. Mr. Burks presents to the clinic today for follow up PAD s/p L BRIANA stent graft 04/26/21. He reportsfeeling well overall and says he does not experience claudication anymore unless he is walking a long distance or exertional activity such as lifting/carrying something or using a ladder. The minor claudication does not bother him or impinge upon his lifestyle at all. 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 He denies slow healing/non healing wounds. He reports some intermittent pruritus of bilateral medial calves and left malleolar area that is relieved with regular lotion. Patient denies numbness, tingling, weakness of extremities, slurred speech, chest pain, edema, SOB,new vision loss. Prior Vascular Hx: 04/26/21: Attempted crossing of left SFA occlusion- Left [...] with high risk of recurrence due to Vulcan score of 8 to 10and PSA greater than 20 C61 Medications: Current Outpatient Medications on File Prior to Visit Medication Sig Dispense Refill atorvastatin (Lipitor) 40 mg Tablet Take 1 tablet by mouth every evening. 90 tablet 3 tamsulosin (FLOMAX) 0.4 mg Capsule 0.8 mg nightly. 11 No current facility-administered medications on file prior to visit. Review of Systems: Constitutional (weight change, fever) - Denies Neuro (dizziness, seizures, numbness, tingling) - Denies Eyes (vision) - Denies Ears, nose, throat (hearing) - Denies Cardiovascular (CP) - Denies Respiratory (SOB) - Denies GI (abd pain, nausea, emesis, blood in stool) - Denies (hematuria, dysuria, frequency) - Denies Muscoloskeletal (extremity pain, weakness) - Denies Skin (ulcers, rashes) - Intermittent BLE pruritus relieved with lotion. Physical Exam: BP 128/72 (BP Location (NBP): Right arm, Patient Position: Sitting, BP Cuff Sizes: Adult (25-34 cm)) Pulse 56 Ht 172.7 cm (5' 8) Wt 72.6 kg (160 lb) BMI 24.33 kg/m?? GEN: Alert and appears stated age. [...] Popliteal 2/2 2/2 DP 1/2 1/2 PT 09/25 09/25 Labs: No results found for this or any previous visit (from the past 24 hour(s)). Studies: 07/27/2023, ROXANNE, legs, multiple levels, Findings: Right Pressure (mm Hg) ROXANNE Waveform TBI Brachial Artery 145 Dorsalis Pedis (Ankle) Artery 84 0.58 Monophasic Posterior Tibial (Ankle) Artery 96 0.66 Monophasic Great Toe 52 0.36 Left Pressure (mm Hg) ROXANNE Waveform TBI Brachial Artery 137 Dorsalis Pedis (Ankle) Artery 81 0.56 Monophasic Posterior Tibial (Ankle) Artery 75 0.52 Monophasic Great Toe 52 0.36 Interpretation: RIGHT: Moderate lower extremity arterial occlusive disease. Improvement in disease category when compared to the previous exam 07/21/2022. LEFT: Moderate lower extremity arterial occlusive disease. Improvement in disease category when compared to the previous exam 07/21/2022. NOTE: Hypertension is present based on Doppler derived systolic brachial blood pressure. Previous ABIs with change from previous value: Date RIGHT DP RIGHT PT RT GR TOE RT Sec TOE 0.37 0.48 ---- ---- 0.42(+.05) 0.51(+.03) 0.29 ---- 0.48(+.06) 0.47(-.04) 0.28(-.01) ---- 0.48( .00) 0.58(+.11) 0.34(+.06) ---- 0.45(-.03) 0.50(-.08) 0.29(-.05) ---- Current 0.58(+.13) 0.66(+.16) 0.36(+.07) ---- Date LEFT DP LEFT PT LT GR TOE LT Sec TOE 0.42 0.38 ---- ---- 0.34(-.08) ---- 0.14 ---- 0.47(+.13) 0.00 0.31(+.17) ---- 0.50(+.03) 0.46(+.46) 0.28(-.03) ---- 0.49(-.01) 0.44(-.02) 0.35(+.07) ---- Current 0.56(+.07) 0.52(+.08) 0.36(+.01) ---- Assessment/Plan: 73 y.o. male with PMH: prostate cancer and PAD with claudication s/p L BRIANA stent graft 04/26/21. # PAD Patient with stable PAD. ABIs improved from previous studies and patient tolerating symptoms with minor inconvenience. Patient amenable to the following plan: Recommend patient continue daily statin and ASA 81 mg. Recommend tight control of co-morbidities and continued abstinence from smoking. Follow-up in the clinic in 1 year with ABIs. Instructed to call the clinic with any concerns prior to next appointment. Instructed to call 911 for any s/sx of CLI including unilateral increased pain, decreased sensation or temperature, or tissue loss. Zeny Marcos APRN Department of Vascular Surgery documented in this encounter Plan of Treatment Upcoming Encounters Date Type Department Care Team (Late st Contact Info) Description 08/07/2024 9:00 AM EST Office Visit Radiation Oncology at [address] [phone] Gloria Baca PA [facility] DR HEMATOLOGY [place] [address] documented as of this encounter Results * ROXANNE, legs, multiple levels (07/28/2024 10:46 AM EST) VB Text Report Department: Vascular Surgery Lab Patient: [id number] (ALONSO BURKS) CPT: 50624 Referring Physician: ZENY MARCOS ?? Phone: Indications: ??F/U PAD, history L iliac stent Diabetes mellitus: No Findings: Right ?Pressure (mm Hg) ?? ROXANNE ??Waveform ? TBI ?? Brachial Artery ?125 ? Dorsalis Pedis (Ankle) Artery ?76 ?0.57 ??Monophasic ? Posterior Tibial (Ankle) Artery ??82 ?0.61 ??Monophasic ? Great Toe ?47 ?0.35 ?? Left ? Pressure (mm Hg) ?? ROXANNE ??Waveform ? TBI ?? Brachial Artery ?134 ? Dorsalis Pedis (Ankle) Artery ?76 ?0.57 ??Monophasic ? Posterior Tibial (Ankle) Artery ??78 ?0.58 ??Monophasic ? Great Toe ?50 ?0.37 ?? Interpretation: RIGHT: Moderate lower extremity arterial occlusive disease. No significant change from previous exam. LEFT: Moderate lower extremity arterial occlusive disease. No significant change from previous exam. Previous ABIs with change from previous value: Date ?RIGHT DP ?? RIGHT PT ?? RT GR TOE ??RT Sec TOE ??0.37 ? 0.48 ? ---- ? ---- ??0.42(+.05) 0.51(+.03) 0.29 ? ---- ??0.48(+.06) 0.47(-.04) 0.28(-.01) ---- ??0.48( .00) 0.58(+.11) 0.34(+.06) ---- ??0.45(-.03) 0.50(-.08) 0.29(-.05) ---- ??0.58(+.13) 0.66(+.16) 0.36(+.07) ---- Current ? 0.57(-.01) 0.61(-.05) 0.35(-.01) ---- Date ?LEFT DP ?LEFT PT ?LT GR TOE LT Sec TOE ??0.42 ? 0.38 ? ---- ? ---- ??0.34(-.08) ---- ? 0.14 ? ---- ??0.47(+.13) 0.00 ? 0.31(+.17) ---- ??0.50(+.03) 0.46(+.46) 0.28(-.03) ---- ??0.49(-.01) 0.44(-.02) 0.35(+.07) ---- ??0.56(+.07) 0.52(+.08) 0.36(+.01) ---- Current ? 0.57(+.01) 0.58(+.06) 0.37(+.01) ---- Electronically Signed by: LIVIA MELGOZA on 2024-07-28 04:22:30 PM [facility] VB Text Report End of Report [facility] 07/28/2024 10:4 6 AM EST Zeny Marcos [employer] SUPPORT TEACHER VASCULAR ORDERABLES Performing Organization Address City/State/[facility] Co de Phone Number [facility] documented in this encounter Visit Diagnoses Diagnosis PAD (peripheral artery disease) Peripheral vascular disease, unspecified documented in this encounter Care Teams Touring Production Manager Relationship Specialty Start Date End Date Ursula Jacob [address] [place] [address] PCP - General Family Medicine 03/16/21 documented as of this encounter
--- OUTSIDE RECORDS SUMMARY | 2024-08-01 15:18 | XMS_ITS | Encounter Summary ---
Author Organization [facility] Address [facility] [address] Care Team Providers Care Floating Labor Gang Supervisor Name Role Phone Ursula Jacob Primary Care Provider Encounter Details Date Type Department Care Team (Latest Contact Info) Description 07/27/2023 Travel Social History Tobacco Use Types Packs/Day [...] AM EST Office Visit Radiation Oncology at [address] [phone] Gloria Baca PA [facility] [address] [place] [address] documented as of this encounter Visit Diagnoses Not on filedocumented in this encounter Care Teams Floating Labor Gang Supervisor Relationship Specialty Start Date End Date Ursula Jacob [address] [place] [address] PCP - General Family Medicine 03/16/21 documented as of this encounter
--- OUTSIDE RECORDS SUMMARY | 2024-08-01 15:18 | XMS_ITS | Encounter Summary ---
Author Organization [facility] Address [facility] [place] [address] Care Team Providers Care Inventory Control Supervisor Name Role Phone Ursula Jacob Primary Care Provider Reason for Visit * Reason Onset Date Comments Other 08/14/2023 Review recent la b results. Encounter Details Date Type Department Care Team (Late st Contact Info) Description 08/14/2023 Telephone Radiation Oncology at [address] [phone] Gloria Baca PA [facility] DR HEMATOLOGY [place] [address] Other (Review recent lab results.) Social History Tobacco Use Types Packs/Day Years [...] encounter Miscellaneous Notes * Telephone Encounter - Gloria Baca PA - 08/14/2023 12:10 PM EST Called Rey regarding his lab results from 08/03/23. PSA 0.05, remains low. Testosterone 241 (reference range: 240-950), returned to WNL as expected nowthat patient is off ADT. Now that Testosterone has returned to normal, will only continue checking PSA. Follow-Up: -Next visit: 6 months -Next PSA due in 6 months (approximately 1 week before appointment) Patient verbalized his understanding and agreement with this plan, all questions were answered. He knows to contact our office at any time with questions/concerns. Gloria Baca PA-C Radiation Oncology documented in this encounter Plan of Treatment Upcoming Encounters Date Type Department Care Team (Late st Contact Info) Description 08/07/2024 9:00 AM EST Office Visit Radiation Oncology at [address] [phone] Gloria Baca PA [facility] HEMATOLOGY [place] [address] documented as of this encounter Visit Diagnoses Diagnosis Malignant neoplasm of prostate- Primary documented in this encounter Care Teams Inventory Control Supervisor Relationship Specialty Start Date End Date Ursula Jacob [address] [place] [address] PCP - General Family Medicine 03/16/21 documented as of this encounter
--- OUTSIDE RECORDS SUMMARY | 2024-08-01 15:18 | XMS_ITS | Encounter Summary ---
Author Organization [facility] [place] [address] Care Team Providers Care Countersinker Name Role Phone Ursula Jacob Primary Care Provider Reason for Visit * Diagnostic Test (Routine) - Closed Specialty Diagnoses / Procedures Referred By Contac t Referred To Contact Diagnoses PAD (peripheral artery disease) Procedures ROXANNE, legs, multiple levels Zeny Marcos, [employer] [facility] [place] [address] [facility] Vascular Lab [address] [place] [address] Referral ID Status Reason Start Date Expiration Date V isits Requested Visits Authorized [id number] Closed Specialty Service Requested 07/27/2023 09/17/2024 1 1 Encounter Details Date Type Department Care Team (Late Contact Info) Description 07/28/2024 10:30 AM EST Tech Visit [place] [phone] Emilee Graejda, [place] PAD (peripheral artery disease) Social History Tobacco [...] AM EST Office Visit Radiation Oncology at [address] [phone] Gloria Baca PA [facility] [place] [address] documented as of this encounter Procedures Procedure Name Priority Date/Time Associated Diagnosis Comments ROXANNE, LEGS, MULTIPLE LEVELS Routine 07/28/2024 10:46 AM EST PAD (peripheral artery disease) documented in this encounter Results * ROXANNE, legs, multiple levels (07/28/2024 10:46 AM EST) VB Text Report Department: Vascular Surgery Lab Patient: [id number] (ALONSO BURKS) CPT: 23308 Referring Physician: ZENY MARCOS ?? Phone: Indications: [...] 07/28/2024 10:4 6 AM EST Zeny Marcos APRN VASCULAR ORDERABLES [facility] documented in this encounter Visit Diagnoses Diagnosis PAD (peripheral artery disease) Peripheral vascular disease, unspecified documented in this encounter Care Teams Countersinker Relationship Specialty Start Date End Date Ursula Jacob [address] [place] [address] PCP - General Family Medicine 03/16/21 documented as of this encounter
--- OUTSIDE RECORDS SUMMARY | 2024-08-01 15:18 | XMS_ITS | Encounter Summary ---
Author Organization [facility] Address [facility] [place] [address] Care Team Providers Care Toby Maker Name Role Phone Ursula Jacob Primary Care Provider Encounter Details Date Type Department Care Team (Latest Contact Info) Description 08/07/2023 11:30 AM EST TH Visit (TeleHealth) Radiation Oncology at [address] [phone] Gloria Baca PA [facility] DR HEMATOLOGY [place] [address] Malignant neoplasm of prostate (Primary Dx); S/P radiotherapy Social History Tobacco Use Types Packs/Day Years [...] Sign Reading Time Taken Comments Blood Pressure 117/64 08/07/2023 11:28 AM EST Pulse 63 08/07/2023 11:28 AM EST Temperature 36.4 ??C (97.6 ??F) 08/07/2023 11:[address] Respiratory Rate 18 08/07/2023 11:28 AM EST Oxygen Saturation 100% 08/07/2023 11:28 AM EST Inhaled Oxygen Concentration - - Weight 76.5 kg (168 lb 9.6 oz) 08/07/2023 11:28 AM EST Height 172.7 cm (5' 7.99) 08/07/2023 11:28 AM Nereyda WHITE Body Mass Index 25.64 08/07/2023 11:28 AM EST documented in this encounter Progress Notes * Gloria Baca PA - 08/07/2023 10:30 AM EST [facility] [place] [address] TELEHEALTH FOLLOW-UP: Patient: Rey Jean Baptiste : 1950 PCP: Ursula Jacob Urologist: Jean-Claude Woodall MD ([facility]; sees annuallly) Radiation Oncologist: Haja Marshall MD Chief Complaint: Follow-up for high-risk prostate cancer (Stage IIIC: cT2a, cN0, cM0, Grade Group 5, Ramon 4+5, PSA 13.5) Treatment Details: Intent: Definitive (Curative) Radiation Therapy: Completion Date Treatment Site Modality Dose per Fraction (Gy) # Fractions Total Dose (Gy) 01/05/20 Pelvis, Entire SV, Prostate; Proximal SV, Prostate; Prostate EBRT 1.8; 1.8; 1.8 25; 38; 44 45; 68.4; 79.2 Concurrent Therapy: LT-ADT (Leuprolide [Lupron Depot] IM, planned 36 months= completed in 10/2022) Date Dose (mg) 08/04/19 22.5 11/10/19 22.5 02/05/20 22.5 05/28/20 22.5 08/27/20 22.5 02/18/21 22.5 05/19/21 22.5 08/23/21 22.5 11/17/21 22.5 02/14/22 22.5 05/18/22 22.5 08/22/22 22.5 Current treatment: Surveillance HPI: 73 y.o. male with a PMHx of high-risk prostate cancer. He initially presented with LUTS, an elevated PSA, and a left-sided prostate nodule. TRUS- guided biopsy on 07/04/19 showed [place] 4+5 x 5 bilaterally, [place] 4+4 x 3 bilaterally, [place] 4+3 x 1 left, and Ramon 3+3 x 1 left. Imaging on11/1/19 showed a thickened bladder wall, but was negative for bone metastases or LAD. Regarding treatment options, he was advised against prostatectomy and surveillance d/t the volume and high-grade disease. He elected to proceed with a trial of ADT prior to possible TURP for LUTS, with the plan for RT later. Patient received his first dose of Lupron on 08/04/19 and noticed an improvement in his LUTS, so he elected to proceed with RT without a TURP. He completed RT on 01/05/20 and 36 months of ADT in 10/2022 (see Treatment Details section above). He is currently on surveillance. Interval Symptoms Since Last Visit on 11/09/22: General: No acute concerns. 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 Uses stationary bike and rowing machine for 20 minutes BID. No increased fatigue. Weight/Appetite/Diet: No recent changes in appetite. Denies unintentional weight loss/gain. Respiratory: Denies SOB or cough. Cardiovascular: Has left common iliac artery stent for BLE claudication and left foot numbness, worse at night. Diagnosed with high-grade left common iliac artery stenosis. Follows with Vascular Surgery. Denies chest pain, palpitations, calf pain/swelling, or other peripheral edema. GI: Has a h/o hemorrhoids with occasional bleeding, worse after heavy lifting. No blood in stool recently. Denies N/V/D/C. : Nocturia has slightly improved from 3-4 times per night to 2-3 times per night. Continues to have slower flow at night. Takes Flomax 0.8 mg PO QHS, managed by Urology. Denies hematuria, dysuria, difficulty initiating urination, difficulty emptying bladder, leakage, increased urgency or frequency. Endocrine: Hot flashes have decreased in frequency, was having them 2-3 times per night which wouldwake him up. Now has 1 in the morning before he gets out of bed and 1 at night. Never took Venlafaxine. Sexual Health: No acute concerns. Continues to have ED. He and are not concerned. Musculoskeletal: Denies decreased strength. Bone Health: Denies recent fracture or bone pain. Neurological: Denies headaches, seizures, peripheral neuropathy. Mood: Denies mood swings or feeling depressed. Tobacco Use: Never. Alcohol Use: Rare (1 beer per month). Social Support: , 2 daughters. Allergies: No Known Allergies Current Medications: Current Outpatient Medications on File Prior to Visit Medication Sig Dispense Refill atorvastatin (Lipitor) 40 mg Tablet Take 1 tablet by mouth every evening. 90 tablet 3 tamsulosin (FLOMAX) 0.4 mg Capsule 0.8 mg nightly. 11 No current facility-administered medications on file prior to visit. Performance Status: KPS Score ECOG Grade Definition [...] confined to bed or chair Physical Examination: Patient Vitals for the past 24 hrs: Temp Pulse Resp BP SpO2 08/07/23 1128 36.4 ??C (97.6 ??F) 63 18 117/64 100 % Constitutional: well-groomed, conversant. NAD. HEENT: normocephalic. PERRL, EOMI, sclerae anicteric, conjunctivae non-injected. Neck: supple, trachea midline. Respiratory: non-labored respirations with symmetrical expansion. Musculoskeletal: moving all extremities ad néstor. OSCAR. Neurologic: alert and oriented x 3. Speech clear and coherent. Cranial nerves II-XII grossly intact. Skin: no visible rashes Psychiatric: mood is euthymic, affect is congruent. Insight and judgement are good. Labs Reviewed This Visit: Date PSA Testosterone Notes 06/2018 10.7 06/2019 13.5 01/12/20 0.02 7.9 05/18/20 0.01 7 08/18/20 0.01 8.8 11/08/19 0.01 9.3 02/10/21 0.01 7.9 05/09/21 0.01 7 08/16/21 0.01 < 7 11/07/21 0.01 < 7 02/01/22 < 0.01 05/12/22 < 0.01 < 7 08/15/22 < 0.01 7.1 11/09/22 < 0.01 08/03/23 Pending Pending Assessment & Plan: #Prostate cancer: - Completed 36 months of ADT in 10/2022. - PSA and Testosterone results from 08/03/23 are pending. Will send patient a Frengo message once results have been reviewed. - Nocturia and hot flashes have improved. No acute/concerning or worsening reported symptoms. - Per NCCN guidelines, PSA and H&P due every 6 months x 5 years s/p RT completion, then annually (PSA may be checked more frequently depending on risk level or other patient-specific factors). KARLY if suspicious for recurrence. - Next PSA and H&P due in 6 months (01/2024), pending 08/03/23 results. #Effects of EBRT: - Completed definitive RT to pelvis, SV, prostate (see Treatment Details section above) on 01/05/20. - Acute and late effects of radiation were reviewed with the patient, who currently denies new issues with the below lists. - Patient is aware that if he develops any of the late effects of radiation listed below (difficulty or changes in urine flow, blood in urine or stool) in between his regularly scheduled appointmentswith our office, then he should seek medical evaluation. Acute: LUTS (lower urinary tract symptoms) Bowel dysfunction Sexual health/Erectile Dysfunction Fatigue Mood changes Late: Changes in urinary flow/difficulty passing urine (scarring from radiation) Blood in urine: may be infection, inflammation of bladder wall (cystitis), formation of telangiectasia (small, thin blood vessels that are dilated or broken near the surface of the bladder and may bleed), or bladder/genitourinary cancer Blood in stool: may be from hemorrhoids, telangiectasia from radiation, or colorectal cancer #Survivorship: - Body weight/nutrition: recommend a well-balanced diet with adequate hydration. - Exercise: recommend at least 150 minutes of cardiovascular exercise per week, stretching twice per week, and 2 days of resistance/strength training per week. - Sleep: recommend 7-8 hours per night. - Sunscreen: encourage SPF 30 or higher, and wearing protective clothing/hats while outside. - Follow with PCP on regular basis for: annual exam/health maintenance, immunizations, and cancer screenings (colonoscopy [reports having one recently], lung cancer screening if appliable, etc). #Resources provided: none #Referrals placed: none Follow-Up: Next visit: 6 months Labs ([facility]): PSA, +/- Testosterone Rey Jean Baptiste had the opportunity to ask questions, which were answered to the best of my knowledge.Rey Jean Baptiste agreed to contact Radiation Oncology in between visits if he has any questions/concerns or new symptoms in regards to his radiation therapy/prostate cancer. Addendum (08/14/23): Labs reviewed from 08/03/23: PSA 0.05, remains low. Testosterone 241 (reference range: 240-950), returned to WNL as expected now that patient is no longer receiving ADT. Frengo message sent to patient with these results. Will continue with plan for next visit in 6 months with PSA re-check. New PSA order placed. Gloria Baca PA-C Radiation Oncology Time Attestation: I certify spending at least 20 minutes in providing care to this patient today as reflected by the following activities: - review of the medical record - discussion of medical decision making - documenting the outcome of today's visit as above documented in this encounter Miscellaneous Notes * Addendum Note - Gloria Baca PA - 08/07/2023 11:30 AM ESTAddended by: GLORIA BACA V. on: 08/14/2023 12:00 PM Modules accepted: Orders, Level of Service documented in this encounter Plan of Treatment Upcoming Encounters Date Type Department Care Team (Late st Contact Info) Description 08/07/2024 9:00 AM EST Office Visit Radiation Oncology at [address] [phone] Gloria Baca PA [facility] HEMATOLOGY [place] [address] Scheduled Orders Name Type Priority Associated Diagnoses Orde r Schedule PSA (Ultrasensitive) Lab Routine Malignant neoplasm of prostate Expected: 02/01/2024 (Approximate), Expires: 08/02/2024 documented as of this encounter Visit Diagnoses Diagnosis Malignant neoplasm of prostate- Primary S/P radiotherapy Convalescence following radiotherapy documented in this encounter Care Teams Toby Maker Relationship Specialty Start Date End Date Ursula Jacob [address] [place] [address] PCP - General Family Medicine 03/16/21 documented as of this encounter
--- OUTSIDE RECORDS SUMMARY | 2024-08-01 15:18 | XMS_ITS ---
Author Organization [facility] Address [facility] [place] [address] Care Team Providers Care Building And Grounds Supervisor Name Role Phone Ursula Jacob Primary Care Provider [phone] Active Problems Problem Noted Date Diagnosed Date Primary malignant neoplasm o f prostate with high risk of recurrence due to [place] score of 8 to 10 and PSA greater than 20 08/04/2019 Malignant neoplasm of prostate 07/31/2019 Cancer Staging:Clinical:Stage IIIC(cT2, cN0, cM0, PSA: 13.5, Grade Group: 5) - Signed by Haja Marshall MD on 07/31/2019 Current Oncology Plans No current plan information found. Past Plans Therapy Plan 1 Plan Name Start Date Discontinue Date Treatment Medications Discontinue Reason Plan Provider ?LEUPR OLIDE (LUPRON DEPOT) 22.5 MG EVERY 3 MONTH 11/19/2020 02/13/2022 No medications scheduled. Plan is Being Renewed Grace Raymond APRN ?LEUPR OLIDE (LUPRON DEPOT) 22.5 MG EVERY 3 MONTH 08/04/2019 11/17/2020 No medications scheduled. Plan is Being Renewed Haja Marshall MD Radiation Treatments * No radiation treatments are documented for this patient in [facility]. Treatments may have been administered in another system.
--- OUTSIDE RECORDS SUMMARY | 2024-08-01 15:18 | XMS_ITS | Encounter Summary ---
Author Organization [facility] Address [facility] [place] [address] Care Team Providers Care Auto Wash Buffer Name Role Phone RachelCoby Ursula Primary Care Provider [phone] Encounter Details Date Type Department Care Team (Late Contact Info) Description 07/17/2023 Telephone [place] [phone] Joyce Garibay RN Social History Tobacco Use Types Packs/Day [...] encounter Miscellaneous Notes * Telephone Encounter - Joyce Garibay RN - 07/17/2023 1:28 PM EDT Incoming call from PCP's office to let us know that they will take over writing Rey's Atorvastatinprescription NEHA Gatesreview rn Surgery Clinic documented in this encounter Plan of Treatment Upcoming Encounters Date Type Department Care Team (Late st Contact Info) Description 08/07/2024 9:00 AM EST Office Visit Radiation Oncology at [address] [phone] Gloria Baca PA [facility] DR HEMATOLOGY [place] [address] documented as of this encounter Visit Diagnoses Not on filedocumented in this encounter Care Teams Auto Wash Buffer Relationship Specialty Start Date End Date Ursula Jacob [address] [place] [address] PCP - General Family Medicine 03/16/21 documented as of this encounter
--- OUTSIDE RECORDS SUMMARY | 2024-08-01 15:18 | XMS_ITS | Encounter Summary ---
Author Organization [facility] Address [facility] [place] [address] Care Team Providers Care Ground Layer Name Role Phone Ursula Jacob Primary Care Provider Encounter Details Date Type Department Care Team (Latest Contact Info) Description 01/31/2024 Travel Social History Tobacco Use Types Packs/Day [...] AM EST Office Visit Radiation Oncology at [address] [phone] Gloria Baca PA [facility] DR [place] [address] documented as of this encounter Visit Diagnoses Not on filedocumented in this encounter Care Teams Ground Layer Relationship Specialty Start Date End Date Ursula Jacob [address] [place] [address] PCP - General Family Medicine 03/16/21 documented as of this encounter
--- OUTSIDE RECORDS SUMMARY | 2024-08-01 15:18 | XMS_ITS | Encounter Summary ---
Author Organization [facility] Address [facility] [place] [address] Care Team Providers Care Aboriginal Ceremonial Celebrant Name Role Phone Ursula Jacob Primary Care Provider [phone] Encounter Details Date Type Department Care Team (Late st Contact Info) Description 01/31/2024 10:30 AM EDT Office Visit Radiation Oncology at [address] [phone] Gloria Baca PA [facility] DR HEMATOLOGY [place] [address] Malignant neoplasm of prostate (Primary Dx); S/P [...] Sign Reading Time Taken Comments Blood Pressure 122/62 01/31/2024 10:36 AM EDT Pulse 74 01/31/2024 10:36 AM EDT Temperature 36.4 ??C (97.5 ??F) 01/31/2024 10:36 AM E DT Respiratory Rate 18 01/31/2024 10:36 AM EDT Oxygen Saturation 100% 01/31/2024 10:36 AM EDT Inhaled Oxygen Concentration - - Weight 77.2 kg (170 lb 3.2 oz) 01/31/2024 10:36 AM EDT Height 172.7 cm (5' 7.99) 01/31/2024 10:36 AM E DT Body Mass Index 25.88 01/31/2024 10:36 AM EDT documented in this encounter Progress Notes * Gloria Baca PA - 01/31/2024 10:30 AM EDT [facility] [place] [address] FOLLOW-UP: Patient: Rey Jean Baptiste : 1950 PCP: Ursula Jacob Urologist: Jean-Claude Woodall MD ([facility]; sees annuallly) Radiation Oncologist: Haja Marshall MD [...] nodule. TRUS- guided biopsy on 07/04/19 showed Ramon 4+5 x 5 bilaterally, [place] 4+4 x 3 bilaterally, [place] 4+3 x 1 left, and [place] 3+3 x 1 left. Imaging on07/25/19 showed a thickened bladder wall, but was [...] surveillance. Interval Symptoms Since Last Visit on 08/07/23: General: No acute concerns. 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 Uses stationary bike and rowing machine for 20 minutes BID. Reports energy level has improved. Weight/Appetite/Diet: No recent changes in appetite. Denies [...] stool recently. Denies N/V/D/C. : Nocturia has continued to improve (was 3-4 times per night during treatment, then 2-3 times, now 1-2 times per night). No issues with slower flow at night anymore. Takes Flomax 0.8 mg PO QHS, managed by Urology. Denies hematuria, dysuria, difficulty initiating urination, difficulty emptying bladder, leakage, increased urgency or frequency. Endocrine: Continues to have hot flashes (1 in the morning before he gets out of bed and 1 at night), stable. This is decreased in frequency compared to when he was on ADT (had them 2-3 times per night which would wake him up). Never took Venlafaxine. Sexual Health: No acute concerns. Continues to have ED. He and are not concerned. Musculoskeletal: Denies decreased strength. Bone Health: Denies recent fracture or bone pain. Neurological: Denies headaches, seizures, peripheral neuropathy. Mood: Denies mood swings or feeling depressed. Tobacco Use: Never. Alcohol Use: Rare (2 beers per month). Social Support: , 2 daughters. [...] 24 hrs: Temp Pulse Resp BP SpO2 01/31/24 1036 36.4 ??C (97.5 ??F) 74 18 122/62 100 % Constitutional: well-groomed, conversant. NAD. HEENT: normocephalic. PERRL, EOMI, sclerae anicteric, conjunctivae non-injected. Moist mucous membranes, no thrush or oral lesion. Neck: supple, trachea midline. No adenopathy. Respiratory: non-labored respirations with symmetrical expansion. Lungs CTA bilaterally. Cardiovascular: RRR without murmurs or gallops. No peripheral edema. Abdomen: soft, non-tender, no palpable masses. Normoactive bowel sounds x 4 quadrants. Musculoskeletal: moving all extremities ad néstor. OSCAR. No swelling or deformity. Neurologic: alert and oriented x 3. Speech clear and coherent. Cranial nerves II-XII grossly intact. Normal gait, ambulates without assistance. Skin: warm, dry, pink, intact. Psychiatric: mood is euthymic, affect is congruent. Insight and judgement are good. Labs Reviewed This Visit: Date PSA Testosterone Notes 06/2018 10.7 06/2019 13.5 08/04/19 Started ADT 01/12/20 0.02 7.9 05/18/20 0.01 7 08/18/20 0.01 8.8 11/08/19 0.01 9.3 01/05/20 Completed RT 02/10/21 0.01 7.9 05/09/21 0.01 7 08/16/21 0.01 < 7 11/07/21 0.01 < 7 02/01/22 < 0.01 05/12/22 < 0.01 < 7 08/15/22 < 0.01 7.1 11/09/22 < 0.01 08/03/23 0.05 241 Testosterone Reference Range: 240-950 01/23/24 0.09 Assessment & Plan: #Prostate cancer: - Completed 36 months of ADT in 10/2022. - Labs reviewed from 01/23/24: PSA 0.09, slightly increased from 6 months ago, but still low and below definition of biochemical recurrence (2 + bronwyn= 2.01). - Nocturia has improved, hot flashes and ED are stable. No acute/concerning or worsening reported symptoms. - Per NCCN guidelines, PSA and H&P due every 6 months x 5 years s/p RT completion, then annually (PSA may be checked more frequently depending on risk level or other patient-specific factors). KARLY if suspicious for recurrence. - Next PSA and H&P due in 6 months (07/2024). #Effects of EBRT: - Completed definitive RT [...] Follow-Up: Next visit: 6 months Labs ([facility]): PSA Rey Jean Baptiste had the opportunity to ask questions, which were answered to the best of my knowledge.Rey Jean Baptiste agreed to contact Radiation Oncology in between visits if he has any questions/concerns or new symptoms in regards to his radiation therapy/prostate cancer. Gloria Baca PA-C Radiation Oncology documented in this encounter Plan of Treatment Upcoming Encounters Date Type Department Care Team (Late st Contact Info) Description 08/07/2024 9:00 AM EST Office Visit Radiation Oncology at [address] [phone] Gloria Baca PA [facility] DR HEMATOLOGY [place] [address] Scheduled Orders Name Type Priority Associated Diagnoses Orde r Schedule PSA (Ultrasensitive) Lab Routine Malignant neoplasm of prostate Expected: 07/25/2024 (Approximate), Expires: 01/24/2025 documented as of this encounter Visit Diagnoses Diagnosis Malignant neoplasm of prostate- Primary S/P radiotherapy Convalescence following radiotherapy documented in this encounter Care Teams Aboriginal Ceremonial Celebrant Relationship Specialty Start Date End Date Ursula Jacob [address] [place] [address] PCP - General Family Medicine 03/16/21 documented as of this encounter
--- OUTSIDE RECORDS SUMMARY | 2024-08-01 15:18 | XMS_ITS | Clinical Summary ---
Author Organization [facility] Address [facility] [place] [address] Care Team Providers Care Lens Molding Equipment Operator Name Role Phone Ursula Jacob Primary Care Provider Allergies No known active allergies Medications Medication Sig Dispensed Refills Start Date End Date Status tamsulosin (FLOMAX) 0.4 mg Capsule 0.8 mg nightly. 11 07/27/2019 Activ e atorvastatin (Lipitor) 40 mg TabletIndications:PAD (peripheral artery disease) Take 1 tablet by mouth every evening. 90 tablet 3 10/09/2022 Active aspirin EC 81 mg EC (DR) tablet Take 1 tablet by mouth daily. 07/28/2024 Active Active Problems Problem Noted Date Diagnosed Date Primary malignant neoplasm o f prostate with high risk of recurrence due to Ramon score of 8 to 10 and PSA greater than 20 08/04/2019 Malignant neoplasm of prostate 07/31/2019 Cancer Staging:Clinical:Stage IIIC(cT2, cN0, cM0, PSA: 13.5, Grade Group: 5) - Signed by Haja Marshall MD on 07/31/2019 Encounters Date Type Department Care Team Description 07/28/2024 11:00 AM EST Office [place] [address] Beba Jarrett APRN PAD (peripheral artery disease) 07/28/2024 10:30 AM EST Tech [place] [address] Emilee Grajeda [place] PAD (peripheral artery disease) 07/28/2024 Travel from Last 3 Months Family History Medical [...] on file Sexual Orientation Not on file Last Filed Vital Signs Vital Sign Reading Time Taken Comments Blood Pressure 122/68 07/28/2024 11:10 AM EST Pulse 57 07/28/2024 11:10 AM EST Temperature 36.4 ??C (97.5 ??F) 01/31/2024 10:36 AM E DT Respiratory Rate 18 01/31/2024 10:36 AM EDT Oxygen Saturation 100% 01/31/2024 10:36 AM EDT Inhaled Oxygen Concentration - - Weight 72.6 kg (160 lb) 07/28/2024 11:10 AM EST Height 170.2 cm (5' 7) 07/28/2024 11:10 AM EST Body Mass Index 25.06 07/28/2024 11:10 AM EST Plan of Treatment Upcoming Encounters Date Type Department Care Team (Late st Contact Info) Description 08/07/2024 9:00 AM EST Office Visit Radiation Oncology at [address] [phone] Gloria Baca PA [facility] DR [place] [address] Health Maintenance Due Date Last Done Comments CT Colonography 1950 Colonoscopy 1950 Colorectal Cancer Screening 1950 FIT DNA 1950 FIT 1950 Sigmoidoscopy (10 year) with FIT yearly 1950 Sigmoidoscopy 1950 Hepatitis C Screening 1968 Tetanus/Diphtheria/Pertussis Vaccines (1 - Tdap) 03/02 Zoster vaccine (1 of 2) 2000 Advance Directive 2005 Pneumoccocal Vaccine: 65+ (1 of 1 - PCV) 2015 Covid-19 Vaccine ( - season) 2024 Influenza (Flu) vaccine (1 o f 1 - Influenza standard series) 05/25/2024 Diabetes Screening (HgbA1C or Glucose) Discontinued Medical Devices Implanted Type Area Physical Aerodynamicist Device Identifier Shelf Expiration Date Model / Serial / Lot Stent Trachbr [id number] Cvrd 0.035in Gw Ss [employer] [id number]/26 Implanted:Qty : 1 on 04/26/2021 by Tom Mahoney MD IMPLANTS Left: Arterial [employer]E GR 02/23/2023 [id number] / [id number] / Description:left common angie c artery Procedures Procedure Name Priority Date/Time Associated Diagnosis Comments ROXANNE, LEGS, MULTIPLE LEVELS Routine 07/28/2024 10:46 AM EST PAD (peripheral artery disease) COMPREHENSIVE METABOLIC PANEL Routine 04/13/2020 1:59 PM EDT PAD (peripheral artery disease) Intermittent claudication from Last 3 Months or Most Recently Relevant to Health Maintenance Results * ROXANNE, legs, multiple levels (07/28/2024 10:46 AM EST) Pathologist [facility] VB Text Report Department: Vascular Surgery Lab Patient: [id number] (ALONSO BURKS) CPT: 44273 Referring Physician: ZENY MARCOS ?? Phone: Indications: [...] 07/28/2024 10:4 6 AM EST Zeny Marcos REGISTERED PUBLIC HEALTH NURSE VASCULAR ORDERABLES VASCUBASE * (ABNORMAL) Comprehensive metabolic panel (non-fasting) (04/13/2020 1:59 PM EDT) Glucose 100 65 - 199 mg/dL [facility] Comment:Diabetes: >=200 mg/d L plus symptoms Blood Urea Nitrogen 21(H) 10 - 20 mg/dL [facility] Creatinine 0.91 0.80 - 1.50 mg/dL [facility] Sodium 140 135 - 145 mmol/L [facility] Potassium 5.3(H) 3.5 - 5.0 mmol/L [facility] Comment: Please note: ??Patients with WBC >100,000 may have falsely elevated Potassium levels. ??For accurate Potassium quantification in these patients send serum separator tube (gold top) for subsequent determinations. ??Contact the Clinical Chemistry Laboratory if there are any questions. Chloride 105 98 - 107 mmol/L [facility] Carbon Dioxide 26 22 - 31 mmol/L [facility] Anion Gap 9 5 - 15 mmol/L [facility] Calcium 9.4 8.5 - 10.5 mg/dL [facility] Protein, Total 6.7 6.1 - 8.0 gm/dL [facility] Albumin 4.1 3.2 - 5.2 gm/dL [facility] Aspartate Aminotransferase 15 0 - 39 unit/L [facility] Alanine Aminotransferase 15 0 - 55 unit/L [facility] Alkaline Phosphatase 109 40 - 130 unit/L [facility] Bilirubin, Total 0.5 0.2 - 1.3 mg/dL [facility] Est Glomerular Filtration Rate 85 >=60 mL/min/1. 73 m?? [facility] Comment: The eGFR was calculated using the CKD-EPI equation. As with all creatinine based estimates of kidney function, eGFR values calculated with the CKD-EPI equation are not accurate in patients with acute kidney failure, extremes of body mass or the acutely ill. http://[employer]/DHMCnkf eGFR 99 >=60 mL/min/1. 73 m?? [facility] Comment: The eGFR was calculated using the CKD-EPI equation. As with all creatinine based estimates of kidney function, eGFR values calculated with the CKD-EPI equation are not accurate in patients with acute kidney failure, extremes of body mass or the acutely ill. http://[employer]/DHMCnkf Blood specimen (specimen) 04/13/2020 1:59 PM EDT 04/13/2020 2:20 PM EDT Narrative Resulting Agency Comment Spec In Lab Luis Barnard MD CHEMISTRY ORDERABLES [facility] [place] [address] from Last 3 Months or Most Recently Relevant to Health Maintenance Advance Directives * Attempt Cardiopulmonary Resuscitation - Inpatient (Latest Code Status on File) Date Activated Date Inactivated Comments 04/26/2021 9:51 AM 04/27/2021 4:41 AM Question Answer Comments Code Status decision made by: Patient * Attempt Cardiopulmonary Resuscitation - Inpatient Date Activated Date Inactivated Comments 04/26/2021 9:34 AM 04/26/2021 9:51 AM Question Answer Comments Code Status decision made by: Patient Care Teams Lens Molding Equipment Operator Relationship Specialty Start Date End Date Ursula Jacob [address] [place] [address] PCP - General Family Medicine 03/16/21
--- OUTSIDE RECORDS SUMMARY | 2024-08-01 15:18 | XMS_ITS | Encounter Summary ---
Author Organization [facility] Address [facility] [place] [address] Care Team Providers Care Government Program Manager Name Role Phone RachelCoby Ursula Primary Care Provider [phone] Encounter Details Date Type Department Care Team (Late Contact Info) Description 07/27/2023 3:00 PM EDT Tech Visit [place] [phone] Pricila Martinez PVD (peripheral vascular disease) with claudication Social History Tobacco Use Types Packs/Day Years [...] AM EST Office Visit Radiation Oncology at [address] [phone] Gloria Baca PA [facility] DR HEMATOLOGY [place] [address] documented as of this encounter Procedures Procedure Name Priority Date/Time Associated Diagnosis Comments ROXANNE, LEGS, MULTIPLE LEVELS Routine 07/27/2023 2:54 PM EDT PVD (peripheral vascular disease) with claudication documented in this encounter Results * ROXANNE, legs, multiple levels (07/27/2023 2:54 PM EDT) VB Text Report Department: Vascular Surgery Lab Patient: [id number] (ALONSO BURKS) CPT: [id number] Referring Physician: JANA RICKS APRN ?? Indications: Left iliac stent/occlusion of SFA ? Perfusion to toes Diabetes mellitus: No Findings: Right ?Pressure (mm Hg) ?? ROXANNE ??Waveform ? TBI ?? Brachial Artery ?145 ? Dorsalis Pedis (Ankle) Artery ?84 ?0.58 ??Monophasic ? Posterior Tibial (Ankle) Artery ??96 ?0.66 ??Monophasic ? Great Toe ?52 ?0.36 ?? Left ? Pressure (mm Hg) ?? ROXANNE ??Waveform ? TBI ?? Brachial Artery ?137 ? Dorsalis Pedis (Ankle) Artery ?81 ?0.56 ??Monophasic ? Posterior Tibial (Ankle) Artery ??75 ?0.52 ??Monophasic ? Great Toe ?52 ?0.36 ?? Interpretation: RIGHT: Moderate lower extremity arterial [...] 0.58(+.11) 0.34(+.06) ---- ??0.45(-.03) 0.50(-.08) 0.29(-.05) ---- Current ? 0.58(+.13) 0.66(+.16) 0.36(+.07) ---- Date ?LEFT DP ?LEFT PT ?LT GR TOE LT Sec TOE ??0.42 ? 0.38 ? ---- ? ---- ??0.34(-.08) ---- ? 0.14 ? ---- ??0.47(+.13) 0.00 ? 0.31(+.17) ---- ??0.50(+.03) 0.46(+.46) 0.28(-.03) ---- ??0.49(-.01) 0.44(-.02) 0.35(+.07) ---- Current ? 0.56(+.07) 0.52(+.08) 0.36(+.01) ---- Electronically Signed by: BEE WEBER on 2023-07-30 09:42:58 AM VASCUBASE VB Text Report End of Report VASCUBASE 07/27/2023 2:54 PM EDT Jana Ricks LOG CUTTER VASCULAR ORDERABLE S VASCUBASE documented in this encounter Visit Diagnoses Diagnosis PVD (peripheral vascular disease) with claudication Peripheral vascular disease, unspecified documented in this encounter Care Teams Government Program Manager Relationship Specialty Start Date End Date Ursula Jacob [address] [place] [address] PCP - General Family Medicine 03/16/21 documented as of this encounter
--- OUTSIDE RECORDS SUMMARY | 2024-08-01 15:18 | XMS_ITS | Encounter Summary ---
Author Organization [facility] Address [facility] [place] [address] Care Team Providers Care Motorboat Mechanic Inboard Name Role Phone RachelUrsula Tenorio Primary Care Provider [phone] Encounter Details Date Type Department Care Team (Late Contact Info) Description 07/19/2023 Orders Only Radiation Oncology at [address] [phone] Haja Marshall MD [address] [place] [address] DR RADIATION ONCOLOGY [place], [place] [id number] Primary malignant neoplasm of prostate with high risk of recurrence due to Winslow score of 8 to 10 and PSA [...] AM EST Office Visit Radiation Oncology at [address] [phone] Gloria Baca PA [facility] DR HEMATOLOGY [place] [address] documented as of this encounter Visit Diagnoses Diagnosis Primary malignant neoplasm of prostate with high risk of recurrence due to Ramon score of 8 to 10 and PSA greater than 20 documented in this encounter Care Teams Motorboat Mechanic Inboard Relationship Specialty Start Date End Date JenniziggyconsueloUrsula Tenorio [address] [place] [address] PCP - General Family Medicine 03/16/21 documented as of this encounter
--- OUTSIDE RECORDS SUMMARY | 2024-08-01 15:19 | XMS_ITS | Encounter Summary ---
Author Organization [facility] Address [facility] [place] [address] Care Team Providers Care Sourcing Associate Name Role Phone Ursula Jacob Primary Care Provider Reason for Referral * Diagnostic Test (Priority 1) - Closed Specialty Diagnoses / Procedures Referred By Contac t Referred To Contact Diagnoses PVD (peripheral vascular disease) with claudication Procedures ROXANNE, legs, multiple levels Jana Ricks APRN [facility] [place] [address] [facility] Vascular Lab [address] [place] [address] Referral ID Status Reason Start Date Expiration Date V isits Requested Visits Authorized [id number] Closed Specialty Service Requested 07/21/2022 07/21/2023 1 1 Encounter Details Date Type Department Care Team (Late st Contact Info) Description 07/21/2022 10:30 AM EDT Office [place] [phone] Jana Ricks APRN [facility] [place] [address] PVD (peripheral vascular disease) with claudication Social [...] Sign Reading Time Taken Comments Blood Pressure 132/61 07/21/2022 10:38 AM EDT Pulse 65 07/21/2022 10:38 AM EDT Temperature - - Respiratory Rate - - Oxygen Saturation - - Inhaled Oxygen Concentration - - Weight 74.8 kg (165 lb) 07/21/2022 10:38 AM EDT reported Height 175.3 cm (5' 9) 07/21/2022 10:38 AM EDT Body Mass Index 24.37 07/21/2022 10:38 AM EDT documented in this encounter Progress Notes * Jana Ricks, POLICE RADIO DISPATCHER - 07/21/2022 10:30 AM EDT F/u ROXANNE's ?? Mr. Burks returns for f/u ROXANNE's for lower extremity arterial disease. He last was seen here by Carly 12/28/21. He is s/p L BRIANA stent graft 04/26/21. In review, he initially presented with bilateral lower extremity claudication and left foot numbness especially at night. He underwent left lower extremity angiogram during which we placed a left common iliac artery stent graft for a high-grade left common iliac artery stenosis. 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 Diagnostic angiogram of the rightleg similarly showed an occluded SFA that was not intervened upon. ?? Since that procedure, He no longer experiences claudication on that side but has persistent numbness in the forefoot. This is intermittent and usually happens more towards the end of the day. Carmen rest pain, tissue loss, SOB, chest pain, TIa's ?? Past Vascular Procedures 04/26/21 ??Attempted crossing of left SFA occlusion- Left common iliac artery stent graft placement (VBX 9x59mm), post-dilated to 10mm distally and 12mm proximally(Maru) PE General: NAD, appears well Neuro: Alert and oriented, motor sensory grossly intact Lungs: CTA Heart: RRR Abd: Soft, NT, ND, no palpable pulsatile masses Extremity - [place], warm, no ulceration, brisk capillary refill, no edema Vascular: R L Carotid 2/2 bruit (n) 2/2 bruit (n) Radial 2/2 2/2 Femoral 2/2 2/2 Popliteal 0/2 0/2 DP 0/2 0/2 PT 0/2 0/2 ABIs Right ?Pressure (mm Hg) ?? ROXANNE ??Waveform ?TBI ?? Brachial Artery ?156 ? Dorsalis Pedis (Ankle) Artery ?70 ?0.45 ??[place]- Biphasic ? Posterior Tibial (Ankle) Artery ??78 ?0.50 ??[place]-Biphasic ? Great Toe ?46 ? 0.29 ? Left ? Pressure (mm Hg) ?? ROXANNE ??Waveform ?TBI ?? Brachial Artery ?152 ? Dorsalis Pedis (Ankle) Artery ?76 ?0.49 ??[place]- Biphasic ? Posterior Tibial (Ankle) Artery ??68 ?0.44 ??[place]-Biphasic ? Great Toe ?54 ? 0.35 ? Interpretation: ?? RIGHT: Moderately severe lower extremity arterial occlusive disease at rest. No significant change compared to the previous exam on 01/17/2022. ?? LEFT: Moderately severe lower extremity arterial occlusive disease at rest. No significant change compared to the previous exam on 01/17/2022. ? Assessment/Plan; 72 yo male s/p L BRIANA stent doing well ABIs stable RABI 0.50, LABI 0.49. No CLI. Continue statin. RTC 12 months with ABIs or before if problems. ?? documented in this encounter Plan of Treatment Upcoming Encounters Date Type Department Care Team (Late st Contact Info) Description 08/07/2024 9:00 AM EST Office Visit Radiation Oncology at [address] [phone] Gloria Baca PA [facility] [place] [address] documented as of this encounter Results * ROXANNE, legs, multiple levels (07/27/2023 2:54 PM EDT) Pathologist [facility] Text Report Department: Vascular Surgery Lab Patient: [id number] (ALONSO BURKS) CPT: [id number] Referring Physician: JANA RICKS APRN ?? Indications: [...] VASCUBASE 07/27/2023 2:54 PM EDT Jana Ricks POLICE RADIO DISPATCHER VASCULAR ORDERABLE S VASCUBASE documented in this encounter Visit Diagnoses Diagnosis PVD (peripheral vascular disease) with claudication Peripheral vascular disease, unspecified documented in this encounter Care Teams Sourcing Associate Relationship Specialty Start Date End Date Ursula Jacob [address] [place] [address] PCP - General Family Medicine 03/16/21 documented as of this encounter
--- OUTSIDE RECORDS SUMMARY | 2024-08-01 15:19 | XMS_ITS | Encounter Summary ---
Author Organization [facility] [place] [address] Care Team Providers Care Marine Reporter Name Role Phone Ursula Jacob Primary Care Provider [phone] Reason for Visit * Reason Comments Other lupron * Treatment/Therapy Plan Authorization (Routine) - Closed Specialty Diagnoses / Procedures Referred By Contdasha t Referred To Contact Diagnoses Primary malignant neoplasm of prostate with high risk of recurrence due to [place] score of 8 to 10 and PSA greater than 20 Stj Hem Onc Infusion [address] [place] [phone] [facility] Rad Onc Office [address] [place] [phone] Referral ID Status Reason Start Date Expiration Date Visits Re quested Visits Authorized [id number] Closed 11/17/2020 11/17/2021 99 99 Encounter Details Date Type Department Care Team (Late st Contact Info) Description 05/19/2021 10:30 AM EDT Infusion Hematology Oncology at [address] [phone] Primary malignant neoplasm of prostate with high risk of recurrence due to [place] score of 8 to 10 and PSA [...] documented as of this encounter Progress Notes * Josy Cortes RN - 05/19/2021 10:30 AM [...] AM EST Office Visit Radiation Oncology at [address] [phone] Gloria Baca PA [facility] DR HEMATOLOGY [place] [address] documented as of this encounter Visit Diagnoses Diagnosis Primary malignant neoplasm of prostate with high risk of recurrence due to [place] score of 8 to 10 and PSA greater than 20 documented in this encounter Administered Medications Inactive Administered Medications - up to 3 most recent administrations Medication Order MAR Action Action Date Dose Rate Site leuprolide (Lupron Depot) injection 22.5 mg 22.5 mg, Intramuscular, ONCE, 1 dose, On Nidhi 05/19/21 at 1045, Routine, This agent is restricted to outpatient use. Is this drug being given as an outpatient? Yes Given 05/19/2021 11:06 AM EDT 22.5 mg Right Gluteal documented in this encounter Care Teams Marine Reporter Relationship Specialty Start Date End Date Ursula Jacob [address] [place] [address] PCP - General Family Medicine 03/16/21 documented as of this encounter
--- OUTSIDE RECORDS SUMMARY | 2024-08-01 15:19 | XMS_ITS | Encounter Summary ---
Author Organization [facility] Address [facility] [place] [address] Care Team Providers Care Parking Analyst Name Role Phone JenniziggyconsueloUrsula Tenorio Primary Care Provider [phone] Reason for Visit * Reason Onset Date Comments Labs Only 05/17/2022 Lab entry Encounter Details Date Type Department Care Team (Late Contact Info) Description 05/17/2022 Telephone Hematology Oncology at [address] [phone] Hemalatha Maurer RN Labs Only (Lab entry) Social History Tobacco Use Types Packs/Day Years [...] AM EST Office Visit Radiation Oncology at [address] [phone] Gloria Baca PA [facility] DR HEMATOLOGY AND ONCOLOGY [place], [place] [phone] documented as of this encounter Procedures Procedure Name Priority Date/Time Associated Diagnosis Comments CBC (WITH DIFF) Routine 05/12/2022 TESTOSTERONE, TOTAL Routine 05/12/2022 COMPREHENSIVE METABOLIC PANEL Routine 05/12/2022 documented in this encounter Results * (ABNORMAL) Testosterone, total (05/12/2022) Pathologist [facility] Testosterone <7.0(L) Blood 05/12/2022 Historical Provider CHEMISTRY ORDERAB LES * (ABNORMAL) Comprehensive metabolic panel (non-fasting) (05/12/2022) Pathologist [facility] Blood Urea Nitrogen 16 Creatinine 0.9 Sodium 143 Potassium 3.6 Calcium 9.0 Protein, Total 7.2 Albumin 3.6 Bilirubin, Total 0.3 Alkaline Phosphatase 139(H) Aspartate Aminotransferase 16 Alanine Aminotransferase 24 Prostate Specific Antigen (Ultrasensitive) <0.01 Blood 05/12/2022 Historical Provider CHEMISTRY ORDERAB LES * CBC (with Diff) (05/12/2022) Pathologist [facility] White Blood Cell 9.59 Red Blood Cell 5.32 Hemoglobin 14.2 Hematocrit 43.7 Platelet 218 Neutrophil Absolute (ANC) - Automated 6.52 Blood 05/12/2022 Historical Provider HEMATOLOGY ORDERA BLES documented in this encounter Visit Diagnoses Not on filedocumented in this encounter Care Teams Parking Analyst Relationship Specialty Start Date End Date Ursula Jacob [address] [place] [address] PCP - General Family Medicine 03/16/21 documented as of this encounter
--- OUTSIDE RECORDS SUMMARY | 2024-08-01 15:19 | XMS_ITS | Encounter Summary ---
Author Organization [facility] Address [facility] [place] [address] Care Team Providers Care Hotel Breakfast Attendant Name Role Phone JenniziggyconsueloCoby Ursula Primary Care Provider Encounter Details Date Type Department Care Team (Late Contact Info) Description 07/21/2022 10:00 AM EDT Tech Visit [place] [address] Janeth Roberts, [place] PAD (peripheral artery disease); Intermittent claudication Social History Tobacco Use Types Packs/Day [...] AM EST Office Visit Radiation Oncology at [address] [phone] Gloria Baca PA [facility] DR [place] [address] documented as of this encounter Procedures Procedure Name Priority Date/Time Associated Diagnosis Comments ROXANNE, LEGS, MULTIPLE LEVELS Routine 07/21/2022 9:48 AM EDT PAD (peripheral artery disease) Intermittent claudication documented in this encounter Results * ROXANNE, legs, multiple levels (07/21/2022 9:48 AM EDT) VB Text Report Department: Vascular Surgery Lab Patient: [id number] (ALONSO BURKS) CPT: 06454 Referring Physician: TOM MAHONEY ?? Phone: Indications: 72 year old male with PAD and bilateral lower extremity claudication and history of LEFT BRIANA stent-graft, ? change in peripheral perfusion Diabetes mellitus: No Findings: Right ?Pressure (mm Hg) ?? ROXANNE ??Waveform ?TBI ?? Brachial Artery ?156 ? Dorsalis Pedis (Ankle) Artery ?70 ?0.45 ??Bucks-Biphasi c ? Posterior Tibial (Ankle) Artery ??78 ?0.50 ??Bucks-Biphasi c ? Great Toe ?46 ? 0.29 ?? Left ? Pressure (mm Hg) ?? ROXANNE ??Waveform ?TBI ?? Brachial Artery ?152 ? Dorsalis Pedis (Ankle) Artery ?76 ?0.49 ??Bucks-Biphasi c ? Posterior Tibial (Ankle) Artery ??68 ?0.44 ??Bucks-Biphasi c ? Great Toe ?54 ? 0.35 ?? Interpretation : RIGHT: Moderately severe lower extremity arterial occlusive disease at rest. No significant change compared to the previous exam on 01/17/2022. LEFT: Moderately severe lower extremity arterial occlusive disease at rest. No significant change compared to the previous exam on 01/17/2022. Focal flow (PSV 22 cm/s) in the posterior tibial artery at the ankle/foot fed by collateral by duplex. Previous ABIs with change from previous value: Date ?RIGHT DP ?? RIGHT PT ?? RT GR TOE ??RT Sec TOE ??0.37 ? 0.48 ? ---- ? ---- ??0.42(+.05) 0.51(+.03) 0.29 ? ---- ??0.48(+.06) 0.47(-.04) 0.28(-.01) ---- ??0.48( .00) 0.58(+.11) 0.34(+.06) ---- Current ? 0.45(-.03) 0.50(-.08) 0.29(-.05) ---- Date ?LEFT DP ?LEFT PT ?LT GR TOE LT Sec TOE ??0.42 ? 0.38 ? ---- ? ---- ??0.34(-.08) ---- ? 0.14 ? ---- ??0.47(+.13) 0.00 ? 0.31(+.17) ---- ??0.50(+.03) 0.46(+.46) 0.28(-.03) ---- Current ? 0.49(-.01) 0.44(-.02) 0.35(+.07) ---- Electronically Signed by: BEE WEBER on 2022-07-21 02:04:27 PM VASCUBASE VB Text Report End of Report VASCUBASE 07/21/2022 9:48 AM EDT Tom Mahoney MD VASCULAR ORDERABLES Performing Organization Address City/State/[facility] Co tx Phone Number VASCUBASE documented in this encounter Visit Diagnoses Diagnosis PAD (peripheral artery disease) Peripheral vascular disease, unspecified Intermittent claudication Peripheral vascular disease, unspecified documented in this encounter Care Teams Hotel Breakfast Attendant Relationship Specialty Start Date End Date Ursula Jacob [address] [place] [address] PCP - General Family Medicine 03/16/21 documented as of this encounter
--- OUTSIDE RECORDS SUMMARY | 2024-08-01 15:19 | XMS_ITS | Encounter Summary ---
Author Organization [facility] Address [facility] [place] [address] Care Team Providers Care Machine Wiper Name Role Phone JenniUrsula Da Silva Primary Care Provider [phone] Reason for Visit * Reason Comments Medication Refill Encounter Details Date Type Department Care Team (Late Contact Info) Description 10/09/2022 Refill Cardiology at [address] [phone] Luis Barnard MD [facility] [place] [address] Medication Refill Social History Tobacco Use Types Packs/Day Years [...] as of this encounter Miscellaneous Notes * Addendum Note - Maty Huerta RN - 10/09/2022 11:59 AM ESTAddended by: MATY HUERTA on: 10/09/2022 11:59 AM Modules accepted: Orders documented in this encounter Plan of Treatment Upcoming Encounters Date Type Department Care Team (Late st Contact Info) Description 08/07/2024 9:00 AM EST Office Visit Radiation Oncology at [address] [phone] Gloria Baca PA [facility] DR [place] [address] documented as of this encounter Visit Diagnoses Diagnosis PAD (peripheral artery disease)- Primary Peripheral vascular disease, unspecified documented in this encounter Care Teams Machine Wiper Relationship Specialty Start Date End Date Ursula Jacob [address] [place] [address] PCP - General Family Medicine 03/16/21 documented as of this encounter
--- OUTSIDE RECORDS SUMMARY | 2024-08-01 15:19 | XMS_ITS | Encounter Summary ---
Author Organization [facility]–1983 Address [facility] [place] [address] Care Team Providers Care Bisque Finisher Name Role Phone RachelCoby Ursula Primary Care Provider Reason for Visit * Reason Comments Injections Lupron Encounter Details Date Type Department Care Team (Late Contact Info) Description 08/22/2022 11:00 AM EST Infusion Hematology Oncology at [address] [phone] Malignant neoplasm of prostate Social History Tobacco Use Types Packs/Day Years [...] as of this encounter Progress Notes * Jodee Zhao RN - 08/22/2022 11:00 AM EST Infusion Note Diagnosis:Prostate Cancer Treatment: [...] AM EST Office Visit Radiation Oncology at [address] [phone] Gloria Baca PA [facility] HEMATOLOGY [place] [address] documented as of this encounter Visit Diagnoses Diagnosis Malignant neoplasm of prostate documented in this encounter Administered Medications Inactive Administered Medications - up to 3 most recent administrations Medication Order MAR Action Action Date Dose Rate Site leuprolide (Lupron Depot) injection 22.5 mg 22.5 mg, Intramuscular, ONCE, 1 dose, On Sun08/22/22 at 1030, , Routine, This agent is restricted to outpatient use. Is this drug being given as an outpatient? Yes Given 08/22/2022 10:45 AM EST 22.5 mg documented in this encounter Care Teams Bisque Finisher Relationship Specialty Start Date End Date Ursula Jacob [address] [place] [address] PCP - General Family Medicine 03/16/21 documented as of this encounter
--- OUTSIDE RECORDS SUMMARY | 2024-08-01 15:19 | XMS_ITS | Encounter Summary ---
Author Organization [facility] Address [facility] [place] [address] Care Team Providers Care Housekeeping And Laundry Team Leader Name Role Phone Tylor William Primary Care Provider [phone] Reason for Visit * Reason Comments Prostate Cancer Encounter Details Date Type Department Care Team (Late st Contact Info) Description 02/17/2021 4:00 PM EDT TH Visit (TeleHealth) Radiation Oncology at [address] [phone] Demi Tijerina, [address] RADIATION ONCOLOGY [place], [place] [id number] Malignant neoplasm of prostate Social History Tobacco [...] as of this encounter Progress Notes * Demi Tijerina APRN - 02/17/2021 4:00 PM EDT Images from the original note were not included. Telephone/TeleHealth Encounter Telephone encounter due to National Public Health Emergency. Patient verbally consented to conduct this [...] to 10 and PSA greater than 20 C61 Past Medical History: Diagnosis Date ??? Lactose intolerance ??? Prostate cancer Peripheral vascular disease.--moderate disease. Medications 02/17/21 1928 Medication Sig Taking? atorvastatin (Lipitor) 40 mg Tablet Take 1 tablet by mouth daily. Yes tamsulosin (FLOMAX) 0.4 mg Capsule 0.8 mg nightly. Yes ibuprofen (Advil;Motrin) 200 mg Tablet Take 600 mg by mouth every 6 hours as needed. For dysuria and urinary frequency No Known Allergies Interim History: I reviewed patient allergies, medications, problem list, Previous medical history, Previous surgical history, family history and social history. Change in [...] the medication. He did followup with his agricultural labor camp manager and he has appointment in February. 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 He denies any mood changes related to hormone therapy. He has gained about 10 lbs mainly abdominal since the start of Lupron. He reports no distressing urinary flow issues.. He has no dysuria or hematuria. He has no bowel issues--no diarrhea at this time, no constipation. ROS: Constitutional: hot flashes at night --awakens 3-5 times a night and voids then. 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 No mood changes. No [...] moderate PVD. He is to be seen bycardiology again in February 2021. He did not tolerate the side effects of Pletal so has stopped med. He continues with aspirin and atorvastatin. Followup: He will return in 12 weeks with labs prior for his next lupron injection. He is comfortable with this plan. I provided care to Mr Jean Baptiste via telephone encounter and spent 30 minutes preparing for the virtual visit, by reviewing previous care as documented in [...] AM EST Office Visit Radiation Oncology at [address] [phone] Gloria Baca PA [facility] HEMATOLOGY [place] [address] documented as of this encounter Visit Diagnoses Diagnosis Malignant neoplasm of prostate documented in this encounter Care Teams Housekeeping And Laundry Team Leader Relationship Specialty Start Date End Date Tylor William PA PCP - General General Internal Medicine 01/13/2002/23 documented as of this encounter
--- OUTSIDE RECORDS SUMMARY | 2024-08-01 15:19 | XMS_ITS | Encounter Summary ---
Author Organization [facility] Address [facility] [place] [address] Care Team Providers Care Rn Ccu Name Role Phone Ursula Jacob Primary Care Provider Reason for Visit * Reason Comments Follow-up Peripheral Arterial Disease Encounter Details Date Type Department Care Team (Late st Contact Info) Description 03/22/2021 11:30 AM EDT Office Visit [place] [address] Luis Barnard MD [facility] [place] [address] Critical lower limb ischemia Social History Tobacco Use Types Packs/Day Years [...] Comments Blood Pressure 126/66 03/22/2021 11:23 AM EDT left arm, right arm: 128/64 Pulse 73 03/22/2021 11:23 AM EDT Temperature - - Respiratory Rate - - Oxygen Saturation 93% 03/22/2021 11: 23 AM EDT Inhaled Oxygen Concentration - - Weight 77.1 kg (170 lb) 03/22/2021 11:2 3 AM EDT Height 172.7 cm (5' 8) 03/22/2021 11:2 3 AM EDT Body Mass Index 25.85 03/22/2021 11:23 AM EDT documented in this encounter Progress Notes * Luis Barnard MD - 03/22/2021 11:30 AM EDT Images from the original note were not included. [facility] [address] [place], [place] [phone] CARDIOVASCULAR MEDICINE OUTPATIENT CONSULTATION Rey Jean Baptiste [id number] 03/22/2021 REFERRING PROVIDER: Tylor William CHIEF COMPLAINT: Chief Complaint Patient presents with ??? Follow-up ??? Peripheral Arterial Disease PROBLEM LIST Patient Active Problem List Diagnosis ??? Primary malignant neoplasm of prostate with high risk of recurrence due to [place] score of 8 to 10 and PSA greater than 20 ??? Malignant neoplasm of prostate HISTORY OF PRESENT ILLNESS: Mr. Jean Baptiste is a very pleasant 71-year-old gentleman with a history of stage IIIc prostate cancer status post pelvic radiation and now on neoadjuvant Lupron therapy, bilateral peripheral artery disease who presents for follow-up. I last saw him on October 05, 2020. He presents today for follow-up. His ABIs today showed right ROXANNE 0.51 toe pressure [...] chest pain or shortness of breath. He de nies PND, orthopnea, lower extremity edema, presyncope or [...] as needed. For dysuria and urinary frequency ??? tamsulosin (FLOMAX) 0.4 mg [...] ? Posterior Tibial (Ankle) Artery ??72 ?0.51 ??Clark-Biphasic ? Great Toe ?40 ? 0.29 ? [...] questions or concerns. Luis Barnard MD, MPH, RPVI, FACC, [facility] Cardiovascular [employer] Math TeacherPattern Mechanicsinter[place] [address] documented in this encounter Plan of Treatment Upcoming Encounters Date Type Department Care Team (Late st Contact Info) Description 08/07/2024 9:00 AM EST Office Visit Radiation Oncology at [address] [phone] Gloria Baca V., [facility] [place] [address] documented as of this encounter Visit Diagnoses Diagnosis Critical lower limb ischemia Unspecified circulatory system disorder documented in this encounter Care Teams Rn Ccu Relationship Specialty Start Date End Date Ursula Jacob [address] [place] [address] PCP - General Family Medicine 03/16/21 documented as of this encounter
--- OUTSIDE RECORDS SUMMARY | 2024-08-01 15:19 | XMS_ITS | Encounter Summary ---
Author Organization [facility] [place] [address] Care Team Providers Care Line Driver Name Role Phone Ursula Jacob Primary Care Provider Reason for Referral * Diagnostic Test (Routine) - Closed Specialty Diagnoses / Procedures Referred By Contac t Referred To Contact Diagnoses Intermittent claudication PAD (peripheral artery disease) Critical lower limb ischemia Procedures ROXANNE, legs, multiple levels Tom Mahoney MD [facility] [place] [address] [facility] Vascular Lab [address] [place] [address] Referral ID Status Reason Start Date Expiration Date V isits Requested Visits Authorized [id number] Closed Specialty Service Requested 06/03/2021 06/03/2022 1 1 Encounter Details Date Type Department Care Team (Late st Contact Info) Description 06/03/2021 Orders [place] [address] Berta Linares, ELIZABETH Intermittent claudication; PAD (peripheral artery disease); Critical lower limb ischemia Social History Tobacco [...] AM EST Office Visit Radiation Oncology at [address] [phone] Gloria Baca PA [facility] DR HEMATOLOGY [place] [address] documented as of this encounter Results * ROXANNE, legs, multiple levels (01/17/2022 1:54 PM EDT) Pathologist [facility] VB Text Report Department: Vascular Surgery Lab Patient: [id number] (ALONSO BURKS) CPT: 54355 Referring Physician: TOM MAHONEY ?? Phone: Indications: s/p L common iliac artery stent graft. Diabetes mellitus: no Findings: Right ?Pressure (mm Hg) ?? ROXANNE ??Waveform ? TBI ?? Brachial Artery ?149 ? Dorsalis Pedis (Ankle) Artery ?72 ?0.48 ??Monophasic ? Posterior Tibial (Ankle) Artery ??86 ?0.58 ??Monophasic ? Great Toe ?51 ?0.34 ?? Left ? Pressure (mm Hg) ?? ROXANNE ??Waveform ? TBI ?? Brachial Artery ?142 ? Dorsalis Pedis (Ankle) Artery ?74 ?0.50 ??Monophasic ? Posterior Tibial (Ankle) Artery ??68 ?0.46 ??Monophasic ? Great Toe ?42 ?0.28 ?? Interpretation: RIGHT: Moderate lower extremity arterial occlusive disease. No significant change compared to previous exam. LEFT: Moderately severe lower extremity arterial occlusive disease. Significant improvement in PT compared to previous exam. No significant change in DP [...] Electronically Signed by: TOM MAHONEY on 2022-01-17 03:43:46 PM VASCUBASE VB Text Report End of Report VASCUBASE 01/17/2022 1:54 PM EDT Tom Mahoney MD VASCULAR ORDERABLES Performing Organization Address City/State/[facility] Co ct Phone Number VASCUBASE documented in this encounter Visit Diagnoses Diagnosis Intermittent claudication Peripheral vascular disease, unspecified PAD (peripheral artery disease) Peripheral vascular disease, unspecified Critical lower limb ischemia Unspecified circulatory system disorder documented in this encounter Care Teams Line Driver Relationship Specialty Start Date End Date Ursula Jacob [address] [place] [address] PCP - General Family Medicine 03/16/21 documented as of this encounter
--- OUTSIDE RECORDS SUMMARY | 2024-08-01 15:19 | XMS_ITS | Encounter Summary ---
Author Organization [facility] [place] [address] Care Team Providers Care Professor Of Chemistry Name Role Phone Tylor William Primary Care Provider [phone] Encounter Details Date Type Department Care Team (Late st Contact Info) Description 11/18/2020 9:00 AM EST TH Visit (TeleHealth) Radiation Oncology at [address] [phone] Demi Tijerina APRN [address] [place] [address] RADIATION ONCOLOGY [place], [place] [phone] Malignant neoplasm of prostate Social History Tobacco [...] Progress Notes * Demi Tijerina APRN - 11/18/2020 9:00 AM EST Images from the original note were not included. Telephone/TeleHealth Encounter Telephone encounter due to National Public [facility] Emergency. Patient verbally consented to conduct this clinical encounter by telephone. He/she acknowledge thatinsurance may be billed for the care provided [...] as needed. For dysuria and urinary frequency Yes tamsulosin [...] at night from 3-5 times. He has someincrease in muscle weakness since being on Lupron and has had increase in leg cramps. He was seen by cardiology in September and was found to have PVD. He was started on cilostazol 100 mg twice a day but this caused him severe diarrhea so he has stopped the medication. He did not feel the med reducedhis leg pain. He is to be seen by cardiology again in December. 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 He denies any mood changes related to [...] night and voids then. 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 No mood changes. No [...] rationale for the treatment and we would discussit again at his next visit. He is agreeable to continuing with treatment with his next Lupron to bedone 11/19/2020. He was pleased that his PSA remains so low. He will re evaluate whether or not to continue with lupron at each visit. LUTS / dysuria: Rec continue flomax 0.4-0.8mg qhs, has not had any dysuria. This is resolved Leg cramps Patient has been evaluated by vascular surgery and has moderate PVD. He is to be seen bycardiology again in December 2020. He did not [...] AM EST Office Visit Radiation Oncology at [address] [phone] Gloria Baca PA [facility] DR HEMATOLOGY [place] [address] documented as of this encounter Visit Diagnoses Diagnosis Malignant neoplasm of prostate documented in this encounter Care Teams Professor Of Chemistry Relationship Specialty Start Date End Date yTlor Willaim PA PCP - General General Internal Medicine 01/13/20 6/11/14 documented as of this encounter
--- OUTSIDE RECORDS SUMMARY | 2024-08-01 15:19 | XMS_ITS | Encounter Summary ---
Author Organization [facility] [place] [address] Care Team Providers Care Hairspring Assembler Name Role Phone Tylor William Primary Care Provider [phone] Reason for Visit * Reason Comments Injections Lupron * Treatment/Therapy Plan Authorization (Routine) - Closed Specialty Diagnoses / Procedures Referred By Contac t Referred To Contact Diagnoses Primary malignant neoplasm of prostate with high risk of recurrence due to [place] score of 8 to 10 and PSA greater than 20 [address] Hem Onc Infusion [address] [place] [phone] [facility] Rad Onc Office [address] [place] [phone] Referral ID Status Reason Start Date Expiration Date Visits Re quested Visits Authorized [id number] Closed 11/17/2020 11/17/2021 99 99 Encounter Details Date Type Department Care Team (Late st Contact Info) Description 11/19/2020 9:00 AM EST Infusion Hematology Oncology at [address] [phone] Primary malignant neoplasm of prostate [...] 35.9 ??C (96.7 ??F) 11/19/2020 9:06 AM ES T Respiratory Rate 20 11/19/2020 9:06 AM EST Oxygen Saturation - - Inhaled Oxygen Concentration - - Weight - - Height - - Body Mass Index - - documented in this encounter Progress Notes * Carol Anguiano RN - 11/19/2020 9:00 AM [...] AM EST Office Visit Radiation Oncology at [address] [phone] Gloria Baca PA [facility] DR HEMATOLOGY [place] [address] documented as of this encounter Visit Diagnoses Diagnosis Primary malignant neoplasm of prostate with high risk of recurrence due to [place] score of 8 to 10 and PSA greater than 20 documented in this encounter Administered Medications Inactive Administered Medications - up to 3 most recent administrations Medication Order MAR Action Action Date Dose Rate Site leuprolide (Lupron Depot) injection 22.5 mg 22.5 mg, Intramuscular, ONCE, 1 dose, On Sun11/19/20 at 0930, Routine, This agent is restricted to outpatient use. Is this drug being given as an outpatient? Yes Given 11/19/2020 9:18 AM EST 22.5 mg Right Gluteal documented in this encounter Care Teams Hairspring Assembler Relationship Specialty Start Date End Date Tylor William PA PCP - General General Internal Medicine 01/13/20 6/2 11/14 documented as of this encounter
--- OUTSIDE RECORDS SUMMARY | 2024-08-01 15:19 | XMS_ITS | Encounter Summary ---
Author Organization [facility] Address [facility] [place] [address] Care Team Providers Care Pet Sitting Name Role Phone Tylor William Primary Care Provider Encounter Details Date Type Department Care Team (Late Contact Info) Description 08/27/2020 Orders Only Radiation Oncology at [address] [phone] Jennifer Manning APRN [facility] [place] [address] Primary malignant neoplasm of prostate with high [...] AM EST Office Visit Radiation Oncology at [address] [phone] Gloria Baca PA [facility] [place] [address] documented as of this encounter Visit Diagnoses Diagnosis Primary malignant neoplasm of prostate with high risk of recurrence due to [place] score of 8 to 10 and PSA greater than 20 documented in this encounter Care Teams Pet Sitting Relationship Specialty Start Date End Date Tylor William PA PCP - General General Internal Medicine 01/13/2002/23 documented as of this encounter
--- OUTSIDE RECORDS SUMMARY | 2024-08-01 15:19 | XMS_ITS | Encounter Summary ---
Author Organization [facility] [place] [address] Care Team Providers Care Shield Operator Name Role Phone Ursula Jacob Primary Care Provider Reason for Visit * Reason Onset Date Comments Follow-up 08/22/2022 Encounter Details Date Type Department Care Team (Late st Contact Info) Description 08/22/2022 Telephone Radiation Oncology at [address] [phone] Diamond Post, RN Follow-up Social History Tobacco Use Types Packs/Day Years [...] encounter Miscellaneous Notes * Telephone Encounter - Diamond Post, RN - 08/22/2022 12:21 PM EST Called and spoke to Светлана. Informed her that Grace Raymond would like pt. To have WBC count rechecked in 1 month and would like pt. To reach out to PCP about elevated WBC in laue of no recent infection and to see if he can be seen sooner then December. Светлана verbalized understanding and will call PCP. ----- Message from Teri Lee sent at 08/22/2022 11:30 AM EST ----- Regarding: KIM van PCP on WBC Rey met with Grace today and she let him know that his white blood count was slightly elevated butsomething she's not too worried about. She told him to follow up with his PCP about it. His called to let us know that his next appt with PCP is not until December. She is wondering if that's okay. If the appointment is too far out, she is looking for a call back at [phone] documented in this encounter Plan of Treatment Upcoming Encounters Date Type Department Care Team (Late st Contact Info) Description 08/07/2024 9:00 AM EST Office Visit Radiation Oncology at [address] [phone] Gloria Baca PA [facility] DR HEMATOLOGY [place] [address] documented as of this encounter Visit Diagnoses Not on filedocumented in this encounter Care Teams Shield Operator Relationship Specialty Start Date End Date Ursula Jacob [address] [place] [address] PCP - General Family Medicine 03/16/21 documented as of this encounter
--- OUTSIDE RECORDS SUMMARY | 2024-08-01 15:19 | XMS_ITS | Encounter Summary ---
Author Organization [facility] Address [facility] [place] [address] Care Team Providers Care Copy Operator Name Role Phone Ursula Jacob Primary Care Provider [phone] Reason for Visit * Reason Comments Injections Lupron 22.5mg Encounter Details Date Type Department Care Team (Late Contact Info) Description 05/18/2022 12:00 PM EDT Infusion Hematology Oncology at [address] [phone] Malignant neoplasm of prostate Social History Tobacco [...] as of this encounter Progress Notes * Kathryn Ely RN - 05/18/2022 12:00 PM EDT Infusion Note Diagnosis:Prostate Cancer Treatment: Lupron Injection Lupron 22.5 mg injected in right buttocks Patient instructed on side effects of Lupron. Patient states understanding of teaching, Patient aware to call clinic with any questions or concerns. Plan: Return to clinic as scheduled. documented in this encounter Plan of Treatment Upcoming Encounters Date Type Department Care Team (Late st Contact Info) Description 08/07/2024 9:00 AM EST Office Visit Radiation Oncology at [address] [phone] Gloria Baca PA [facility] DR [place] [address] documented as of this encounter Visit Diagnoses Diagnosis Malignant neoplasm of prostate documented in this encounter Administered Medications Inactive Administered Medications - up to 3 most recent administrations Medication Order MAR Action Action Date Dose Rate Site leuprolide (Lupron Depot) injection 22.5 mg 22.5 mg, Intramuscular, ONCE, 1 dose, On Nidhi 05/18/22 at 1100, Routine, This agent is restricted to outpatient use. Is this drug being given as an outpatient? Yes Given 05/18/2022 11:32 AM EDT 22.5 mg Right Gluteal documented in this encounter Care Teams Copy Operator Relationship Specialty Start Date End Date Ursula Jacob [address] [place] [address] PCP - General Family Medicine 03/16/21 documented as of this encounter
--- OUTSIDE RECORDS SUMMARY | 2024-08-01 15:19 | XMS_ITS | Encounter Summary ---
Author Organization [facility] [place] [address] Care Team Providers Care Tilting Head Band Sawyer Name Role Phone Ursula Jacob Primary Care Provider Reason for Visit * Reason Comments Injections Lupron * Treatment/Therapy Plan Authorization (Routine) - Closed Specialty Diagnoses / Procedures Referred By Contdasha t Referred To Contact Diagnoses Primary malignant neoplasm of prostate with high risk of recurrence due to Franklin score of 8 to 10 and PSA greater than 20 [address] Hem Onc Infusion [address] [place] [phone] [facility] Rad Onc Office [address] [place] [phone] Referral ID Status Reason Start Date Expiration Date Visits Re quested Visits Authorized [id number] Closed 11/17/2020 11/17/2021 99 99 Encounter Details Date Type Department Care Team (Late st Contact Info) Description 11/17/2021 10:30 AM EST Infusion Hematology Oncology at [address] [phone] Primary malignant neoplasm of prostate [...] Progress Notes * Jodee Zhao RN - 11/17/2021 10:30 AM [...] AM EST Office Visit Radiation Oncology at [address] [phone] Gloria Baca PA [facility] DR HEMATOLOGY [place] [address] documented as of this encounter Visit Diagnoses [...] 1 dose, On Nidhi 11/17/21 at 1115, Routine, This agent is restricted to outpatient use. Is this drug being given as an outpatient? Yes Given 11/17/2021 11:08 AM EST 22.5 mg Right Gluteal documented in this encounter Care Teams Tilting Head Band Sawyer Relationship Specialty Start Date End Date Ursula Jacob [address] [place] [address] PCP - General Family Medicine 03/16/21 documented as of this encounter
--- OUTSIDE RECORDS SUMMARY | 2024-08-01 15:19 | XMS_ITS | Encounter Summary ---
Author Organization [facility] Address [facility] [place] [address] Care Team Providers Care Wildlife Ecology Professor Name Role Phone Ursula Jacob Primary Care Provider Encounter Details Date Type Department Care Team (Late st Contact Info) Description 06/03/2021 12:45 PM EDT Office Visit [place] [phone] Tom Mahoney MD [facility] [place] [address] Intermittent claudication; PAD (peripheral artery disease) Social History Tobacco [...] documented in this encounter Progress Notes * Tom Mahoney MD - 06/03/2021 12:45 PM [...] numbness in the ball of the foot. Thisis intermittent and usually happens more towards the [...] AM EST Office Visit Radiation Oncology at [address] [phone] Gloria Baca PA [facility] H[place]ATOLOGY [place] [address] documented as of this encounter Visit Diagnoses Diagnosis Intermittent claudication Peripheral vascular disease, unspecified PAD (peripheral artery disease) Peripheral vascular disease, unspecified documented in this encounter Care Teams Wildlife Ecology Professor Relationship Specialty Start Date End Date Ursula Jacob [address] [place] [address] PCP - General Family Medicine 03/16/21 documented as of this encounter
--- OUTSIDE RECORDS SUMMARY | 2024-08-01 15:19 | XMS_ITS | Encounter Summary ---
Author Organization [facility] Address [facility] [place] [address] Care Team Providers Care Hand Loom Weaver Name Role Phone Ursula Jacob Primary Care Provider Encounter Details Date Type Department Care Team (Late st Contact Info) Description 08/22/2022 10:15 AM EST Office Visit Radiation Oncology at [address] [phone] Grace Raymond APRN [facility] [place] [address] Malignant neoplasm of prostate (Primary Dx) Social History Tobacco Use Types Packs/Day Years [...] Sign Reading Time Taken Comments Blood Pressure 138/67 08/22/2022 9:00 AM EST Pulse 86 08/22/2022 9:00 AM EST Temperature 36.1 ??C (97 ??F) 08/22/2022 9:00 AM EST Respiratory Rate 18 08/22/2022 9:00 AM EST Oxygen Saturation 100% 08/22/2022 9:00 AM EST Inhaled Oxygen Concentration - - Weight 81.3 kg (179 lb 3.2 oz) 08/22/2022 9:00 A M EST Height - - Body Mass Index 26.46 07/21/2022 10:38 AM EDT documented in this encounter Progress Notes * Grace Raymond, DOG AND CAT FOOD COOK - 08/22/2022 10:15 AM ESTSummary: 72-year-old male diagnosed with high risk prostate cancer in 2019. Plan 36 months ADT. EBRT compl 01/05/20. Images from the original note were not included. [facility] [place] [address] Phone: RADIATION ONCOLOGY FOLLOW UP NOTE Date of visit: 08/18/2022 Patient Rey Jean Baptiste 1950 PCP: Ursula Jacob Urologist:Jean-Claude Woodall MD [facility] (Last seen 6 months ago, goes annually) Radiation oncologist: Dr. Haja Marshall Chief Complaint: follow up/labs/leuprolide for prostate cancer Time since completed RT: Completion 01/05/20 On flow max 0.8mg ADT: Lupron q 3mos due today; plan for 36 months final dose Current treatment:Surveillance, labs HPI: Rey Jean Baptiste??is [...] (22.5mg)- 11/17/21 Lupron #10 (22.5 mg)- 02/14/22 Lupron #11 (22.5mg) 05/18/22 Coverage to 33 months at this point. Next due July 2022. This should cover 36 month as total coverage plan. 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 Active everyday No covid or respiratory illnesses. Still gets up 1-2 x at night to urinate. Still taking two flow max. Gets hot flashes and may wake up and secondarily may try to empty at that time. Flow velocity is less at noc. Goes to bed at 10pm. No blood in urine or stool. No changes in urination. May 2021 Vascular Note: Mr Perez presented w/ bilateral lower extremity claudication and left foot numbness especially atnight. He underwent left lower extremity angiogram during which we placed a left common iliac artery stent graft for a high-grade left common iliac artery stenosis. We also noted a long chronic totalocclusion of the SFA that we were unable [...] will continue on antiplatelet and statin therapy. 05/18/22 To date no further issues with claudication or worsening of sx. Medications 07/21/22 1048 Medication Sig Taking? atorvastatin (Lipitor) 40 mg Tablet Take 1 tablet by mouth every evening. ibuprofen (Advil;Motrin) 200 mg Tablet Take 600 mg by mouth every 6 hours as needed. For dysuria and urinary frequency tamsulosin (FLOMAX) 0.4 mg Capsule 0.8 mg nightly. No Known Allergies Past Medical History: Diagnosis Date ??? Lactose intolerance ??? Prostate cancer Past Surgical History: Procedure Laterality Date ??? PROSTATE BIOPSY 07/04/2019 ??? VS ARTERIOGRAM LOWER EXTREMITY VASCULAR SURGERY 04/26/2021 VS Arteriogram Lower Extremity Vascular Surgery 04/26/2021 Tom Mahoney MD [facility] Family History Problem Relation Age of Onset ??? Cancer Maternal Grandfather 80 throat Social History Tobacco Use ??? Smoking status: Never ??? Smokeless tobacco: Never Vaping Use ??? Vaping Use: Never used Substance Use Topics ??? Alcohol use: Yes Comment: occasional beer ??? Drug use: Never Review of Symptoms: I reviewed the IPSS/KELL/Epic-Cp survey results from today 08/22/2022 ??9:52 AM EST - Filed by Patient Urinary function problem Small problem Urinary control Occasional dribbling Urinary dripping/leakage problem No problem 5. How big a problem, if any, has each of the following been for you? Pain or burning with urination No problem Weak urine stream/incomplete bladder emptying Small problem Need to urinate frequently Very small problem 6. How big a problem, if any, has each of the following been for you? Rectal pain or urgency of bowel movements No problem Increased frequency of your bowel movements No problem Overall problems with your bowel movements Very small problem Bloody stools No problem 10. How big a problem, if any, has each of the following been for you? Hot flashes or breast tenderness/enlargement Moderate problem Feeling depressed No problem Lack of energy Moderate problem Urinary Incontinence Symptom Score (range: 0 - 12) 1 Urinary Irritation/Obstructive Symptom Score (range: 0 - 12) 3 Bowel Symptom Score (range: 0 - 16) 1 Vitality/Hormonal Symptom Score (range: 0 - 12) 6 Overall Prostate Cancer QOL Score (range: 0 - 60) 11 Q - Prostate Followup Survey Question 08/22/2022 ??9:57 AM EST - Filed by Patient Reason for visit Follow up on existing problem(s) Incomplete emptying About half the time Frequency About half the time Intermittency Less than half the time Urgency Less than half the time Weak Stream About half the time Straining Not at all Nocturia 4 times Quality of life Mixed - about equally satisfied and dissatisfied Total IPSS Score (range: 0 - 35) 17 (Moderate LUTS) Confidence, level - past 6 [...] concerns for today's visit: states no concerns , he does have ED but he and are not concerned with this at this time. General:Feels he is doing well and says no changes from last visit. No falls or loss of balance. Fatigue:mild to moderate, drive, motivation down somewhat. He is glad to be finishing today with final lupron. Weight/appetite/diet increased 15lb (176lb in Nov) now [...] weakness Neuro:nothing focal, did have a concussion 11 months ago and checked after fall in [facility] ED. No further falls or loss of balance. No changes,no neuro focal sx Mood:good , does not have depression. Sleep: noc sweats q noc are the things that waken him and then he gets up to empty bladder. 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 Notices upper body strength less. 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 BP 138/67 (Patient Position: Sitting) Pulse 86 Temp 36.1 ??C (97 ??F) Resp 18 Wt 81.3 kg (179 lb 3.2 oz) Constitutional: seen in clinic no distress HENT: normocephalic, anicteric, Cardiovascular: Rate and Rhythm: Normal rate and regular rhythm. Pulmonary: Effort: Pulmonary effort is normal. Genitourinary: Rectum: deferred, undetectable PSA No inguinal adenopathy Musculoskeletal: Normal range of [...] Reviewed this visit: Date PSA Test Notes 08/15/22 <0.01 7.1 05/12/22 <0.01 <7.0 02/01/21 <0.01 11/07/21 0.01 <7.0 08/16/21 0.01 <7.0 05/09/21 0.01 7.0 02/10/2021 0.01 7.9 11/08/2019 0.01 9.3 08/18/2020 0.01 8.8 05/18/2020 0.01 7.0 01/12/2020 0.02 7.9 06/2019 13.5 06/2018 10.7 08/15/22 WBC H 11.91 Hgb 14 PLT 224K Calcium 9.0 BUN 16 Creat 1.0 EGFR 79.97 Alk Phos 145 (46-116) AST/ALT Assessment: 72 y.o. presenting for follow up/ lab/leuprolide for prostate cancer. PSA 0.01, no change in sx profile, using flow max .8mg up 2 x at noc but as much because of noc flushing as to urinate. No bone pain, no urinary sx, no hematuria. Does have occaiss hemorrhoid with heavy lifting and it will bleed. With completion of his last building project this decreased in swelling and no blood now. We discussed role of colo although he has not wanted to have these in past. Discussed checking in with PCP on cologuard testing which he felt more favorably inclined to. Will continue to monitor hemorrhoidal situation. No KARLY today PSA undetectable. Reviewed sx of concern as above. Completed his lupron plan of 36 months coverage today. Discussed that I noted he had an elevated WBC count without any infection, no prednisone use. Unsure why this is case but recomm he call his PCPfor interval re-check within this next month and certainly if he has fevers,chills and/or feels unwell to contact PCP for check. I also will see him again in 3 months to check on how he is doing. Then plan follow q 6 months ongoing to check on PSA and sx resolution. Explained that as Lupron wears down after next three months his own test will return in age appropriate fashion. He may start to regain some energy and improved muscle tone with exercise. He has been pressing himself to stay active. RTC 3 months for next labs and lupron. Then Q 6 months. Medical Decision Making/Recommendations/Plan: # prostate cancer: reviewed [...] today? yes Order: Lupron 22.5 mg IM # survivorship/lifestyle/wellness: Body weight/nutrition: increased wt 15 lbs since Lupron. Exercise:stays busy with work Bone health: No bone Smoking:never Alcohol: rare Annual exam with PCP: [facility] Up to date on vaccinations:Covid vax at [place] maybe 4 months ago. Booster sched in [...] or other patient specific factors. Next visit:3 mos. And then Q 6 months thereafter Labs: PSA, testosterone, CBC, CMP Rey Jean Baptiste had the opportunity to ask questions and I answered them to the best of my knowledge. Rey Jean Baptiste agreed to contact radiation oncology in between visits if he has any questions/concernsor new symptoms in regards to the radiation therapy/prostate cancer Grace Raymond MSN, DOG AND CAT FOOD COOK, POWER GENERATION PLANT OPERATOR-C Nurse Practitioner Radiation Oncology documented in this encounter Plan of Treatment Upcoming Encounters Date Type Department Care Team (Late st Contact Info) Description 08/07/2024 9:00 AM EST Office Visit Radiation Oncology at [address] [phone] Gloria Baca PA [facility] HEMATOLOGY [place] [address] documented as of this encounter Visit Diagnoses Diagnosis Malignant neoplasm of prostate- Primary documented in this encounter Care Teams Hand Loom Weaver Relationship Specialty Start Date End Date Ursula Jacob [address] [place] [address] PCP - General Family Medicine 03/16/21 documented as of this encounter
--- OUTSIDE RECORDS SUMMARY | 2024-08-01 15:19 | XMS_ITS | Encounter Summary ---
Author Organization [facility] [place] [address] Care Team Providers Care Postdoctoral Research Associate Name Role Phone Ursula Jacob Primary Care Provider [phone] Reason for Referral * Diagnostic Test (Routine) - Closed Specialty Diagnoses / Procedures Referred By Contac t Referred To Contact Diagnoses PAD (peripheral artery disease) Intermittent claudication Procedures ROXANNE, legs, multiple levels Tom Mahoney MD [facility] [place] [address] [facility] Vascular Lab [address] [place] [address] Referral ID Status Reason Start Date Expiration Date V isits Requested Visits Authorized [id number] Closed Specialty Service Requested 01/17/2022 01/17/2023 1 1 Encounter Details Date Type Department Care Team (Late st Contact Info) Description 01/17/2022 2:30 PM EDT Office Visit [place] [phone] Tom Mahoney MD [facility] [place] [address] PAD (peripheral artery disease); Intermittent claudication Social [...] kg (170 lb) 01/17/2022 2:17 PM EDT r eported Height 172.7 cm (5' 8) 01/17/2022 2:17 PM EDT r eported Body Mass Index 25.85 01/17/2022 2:17 PM EDT documented in this encounter Progress Notes * Tom Mahoney MD - 01/17/2022 2:30 PM EDT Vascular Surgery Clinic Visit ?? Mr. Burks returns to discuss his lower extremity arterial [...] day. He denies any ischemic pain. He doesnot experience any significant claudication. ?? On exam, he has a healed right groin puncture and palpable bilateral femoral pulses, absent pedal pulses. ?? ABIs are 0.5 bilaterally and unchanged. ?? Vein map previously demonstrated no usable greater saphenous vein bilaterally. ?? I had a discussion with Mr. Burks about his peripheral arterial disease. On the [...] severe diarrhea. He will continue on antiplatelet andstatin therapy. ?? Follow-up will be in 6 months with surveillance ABIs. ?? Tom Talavera. MD [place], [place] Section of Vascular Surgery documented in this encounter Plan of Treatment Upcoming Encounters Date Type Department Care Team (Late st Contact Info) Description 08/07/2024 9:00 AM EST Office Visit Radiation Oncology at [address] [phone] Gloria Baca PA [facility] DR [place] [address] documented as of this encounter Results * ROXANNE, legs, multiple levels (07/21/2022 9:48 AM EDT) VB Text Report Department: Vascular Surgery Lab Patient: [id number] (ALONSO BURKS) CPT: 49924 Referring Physician: TOM MAHONEY ?? Phone: Indications: 72 year old male with PAD and bilateral lower extremity claudication and history of LEFT BRIANA stent-graft, ? change in peripheral perfusion Diabetes mellitus: No Findings: Right ?Pressure (mm Hg) ?? ROXANNE ??Waveform ?TBI ?? Brachial Artery ?156 ? Dorsalis Pedis (Ankle) Artery ?70 ?0.45 ??Iroquois-Biphasi c ? Posterior Tibial (Ankle) Artery ??78 ?0.50 ??Iroquois-Biphasi c ? Great Toe ?46 ? 0.29 ?? Left ? Pressure (mm Hg) ?? ROXANNE ??Waveform ?TBI ?? Brachial Artery ?152 ? Dorsalis Pedis (Ankle) Artery ?76 ?0.49 ??Iroquois-Biphasi c ? Posterior Tibial (Ankle) Artery ??68 ?0.44 ??Iroquois-Biphasi c ? Great Toe ?54 ? 0.35 [...] AM EDT Tom Mahoney MD VASCULAR [facility]AB[facility] documented in this encounter Visit Diagnoses Diagnosis PAD (peripheral artery disease) Peripheral vascular disease, unspecified Intermittent claudication Peripheral vascular disease, unspecified documented in this encounter Care Teams Postdoctoral Research Associate Relationship Specialty Start Date End Date Ursula Jacob [address] [place] [address] PCP - General Family Medicine 03/16/21 documented as of this encounter
--- OUTSIDE RECORDS SUMMARY | 2024-08-01 15:19 | XMS_ITS | Encounter Summary ---
Author Organization [facility] Address [facility] [place] [address] Care Team Providers Care Evaluation Manager Name Role Phone Ursula Jacob Primary Care Provider Encounter Details Date Type Department Care Team (Late st Contact Info) Description 08/23/2021 3:15 PM EST Office Visit Radiation Oncology at [address] [phone] Grace Raymond APRN [facility] [place] [address] Malignant neoplasm of prostate (Primary Dx) Social [...] 36.3 ??C (97.3 ??F) 08/23/2021 3:16 PM ES T Respiratory Rate 20 08/23/2021 3:16 PM EST Oxygen Saturation 98% 08/23/2021 3:16 PM EST Inhaled Oxygen Concentration - - Weight 79.8 kg (176 lb) 08/23/2021 3:16 PM EST w ith boots Height 172.3 cm (5' 7.84) 08/23/2021 3:16 PM ES T Body Mass Index 26.89 08/23/2021 3:16 PM EST documented in this encounter Progress Notes * Grace Raymond, COURT CLERK - 08/23/2021 3:15 PM ESTSummary: 71-year-old male diagnosed with high risk prostate cancer in 2019. Plan 36 months ADT. EBRT compl 01/05/20. Images from the original note were not included. 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 Medications 06/03/21 9829 Medication Sig Taking? atorvastatin (Lipitor) 40 mg [...] Extremity Vascular Surgery 04/26/[address] 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 Notices upper body strength less. Exercise:with [...] have these in past. Will continue to monitor hemorrhoidal situation. No KARLY today as so recent and not wanting to stim bleeding again. His PSA in undetectable as well. Reviewed sx of concern as [...] Smoking:never Alcohol: rare Annual exam with PCP: [facility] Up to date on vaccinations:Covid vax at [facility] maybe 4 months ago. Booster sched in [...] the radiation therapy/prostate cancer Grace Raymond MSN, COURT CLERK, PRECISION JIG GRINDER-C Nurse Practitioner Radiation Oncology documented in this encounter Plan of Treatment Upcoming Encounters Date Type Department Care Team (Late st Contact Info) Description 08/07/2024 9:00 AM EST Office Visit Radiation Oncology at [address] [phone] Gloria Baca PA [facility] DR [place] [address] documented as of this encounter Visit Diagnoses Diagnosis Malignant neoplasm of prostate- Primary documented in this encounter Care Teams Evaluation Manager Relationship Specialty Start Date End Date Ursula Jacob [address] [place] [address] PCP - General Family Medicine 03/16/21 documented as of this encounter
--- OUTSIDE RECORDS SUMMARY | 2024-08-01 15:19 | XMS_ITS | Encounter Summary ---
Author Organization [facility] Address [facility] [place] [address] Care Team Providers Care Dianetic Counselor Name Role Phone JenniziggyconsueloUrsula Tenorio Primary Care Provider [phone] Encounter Details Date Type Department Care Team (Latest Contact Info) Description 04/26/2021 7:45 AM EDT Laboratory Appointment Lab [address] [place] [phone] Critical lower limb ischemia; Pre-procedural examination Social History Tobacco Use Types Packs/Day Years [...] EST Office Visit Radiation Oncology at [address] [phone] Gloria Baca PA [facility] [place] [address] documented as of this encounter Procedures Procedure Name Priority Date/Time Associated Diagnosis Comments HC VENIPUNCTURE STAT 04/26/2021 7:56 AM EDT Critical lower limb ischemia Pre-procedural examination documented in this encounter Results * Creatinine (04/26/2021 7:56 AM EDT) Creatinine 0.82 0.80 - 1.50 mg/dL [facility] Est Glomerular Filtration Rate 89 >=60 mL/min/1. 73 m?? [facility] Comment: This patient? s estimated glomerular filtration rate (eGFR) is between 89 mL/min/1.73 m2 (patients with less muscle mass per kg body weight) and 103 mL/min/1.73 m2 (patients with more muscle mass per kg body weight) as determined by the CKD-EPI equation. Assessment of eGFR is not appropriate when creatinine concentrations are rapidly changing. For clinical decisions where creatinine clearance will affect therapy, a 24-hour urine creatinine clearance may be advised. Assignment of CKD stage 1 - 5 for patients with an eGFR near the transition point between stages may be based on clinical assessment of muscle mass and symptoms in addition to eGFR. Blood 04/26/2021 7:56 AM EDT 04/26/2021 8:06 AM EDT Narrative Resulting Agency Comment Spec In Lab Tom Mahoney MD CHEMISTRY ORDERABLES [facility] [place] [address] documented in this encounter Visit Diagnoses Diagnosis Critical lower limb ischemia Unspecified circulatory system disorder Pre-procedural examination Preoperative examination, unspecified documented in this encounter Care Teams Dianetic Counselor Relationship Specialty Start Date End Date Ursula Jacob [address] [place] [address] PCP - General Family Medicine 03/16/21 documented as of this encounter
--- OUTSIDE RECORDS SUMMARY | 2024-08-01 15:19 | XMS_ITS | Encounter Summary ---
Author Organization [facility] Address [facility] [place] [address] Care Team Providers Care Records Clerk Name Role Phone Tylor William Primary Care Provider [phone] Encounter Details Date Type Department Care Team (Late Contact Info) Description 11/17/2020 Orders Only Radiation Oncology at [address] [phone] [address] T[address] RADIATION ONCOLOGY [place], [place] [id number] Malignant neoplasm of prostate Social History Tobacco [...] EST Office Visit Radiation Oncology at [address] [phone] Gloria Baca PA [facility] DR HEMATOLOGY [place] [address] documented as of this encounter Visit Diagnoses Diagnosis Malignant neoplasm of prostate documented in this encounter Care Teams Records Clerk Relationship Specialty Start Date End Date Tylor William PA PCP - General General Internal Medicine 01/13/20 6/2 11/14 documented as of this encounter
--- OUTSIDE RECORDS SUMMARY | 2024-08-01 15:19 | XMS_ITS | Encounter Summary ---
Author Organization [facility] Address [facility] [place] [address] Care Team Providers Care Truck Sales Manager Name Role Phone JenniziggyconsueloCoby Ursula Primary Care Provider Encounter Details Date Type Department Care Team (Late Contact Info) Description 03/22/2021 9:30 AM EDT Tech [place] [phone] Zenia Castro PAD (peripheral artery disease); Intermittent claudication Social [...] EST Office Visit Radiation Oncology at [address] [phone] Gloria Baca PA [facility] [address] [place] [address] documented as of this encounter Procedures Procedure Name Priority Date/Time Associated Diagnosis Comments CT ANGIOGRAM AORTA LOWER EXTREMITY RUNOFF Routine 03/22/2021 10:47 AM EDT PAD (peripheral artery disease) Intermittent claudication ROXANNE, LEGS, MULTIPLE LEVELS Routine 03/22/2021 9:40 AM EDT PAD (peripheral artery disease) Intermittent claudication documented in this encounter Results * CT Angiogram Aortic Lower Extremity Runoff (03/22/2021 10:47 AM EDT) Anatomical Region Laterality Modality Abdomen Computed Tomogra phy Impressions 03/22/2021 11:58 AM EDT 1. ??Extensive bilateral occlusive disease, as described above. Thank you for letting us participate in the care of this patient. ??If you are a health care provider and have any questions regarding this report, please contact the number below. ??For patients who have questions please contact the health senior caregiver that requested your imaging first. ? Narrative 03/22/2021 11:58 AM EDT EXAMINATION: CT ANGIOGRAM AORTA LOWER EXTREMITY RUNOFF CLINICAL HISTORY: bilateral lifestylie limiting claudication ?level of disease TECHNIQUE: Helical CTA of the abdomen, pelvis and lower extremities was performed following the intravenous administration of contrast. Administered 150.0 ml of OMNIPAQUE 350.00 mg/ml. Maximum intensity projection (MIP) were reformatted. 3-D images were generated on an independent workstation. COMPARISON: None FINDINGS: VASCULAR FINDINGS Abdominal aorta: Mild ectasia in the infrarenal abdominal aorta Celiac: Critical stenosis severe stenosis at origin. Then diffusely aneurysmal, measuring up to 9 mm. SMA: No stenosis. Right renal artery: 2 patent RIGHT renal arteries Left renal artery: 3 patent LEFT renal arteries MARLIN: No stenosis. RIGHT LOWER EXTREMITY Common [...] Lower chest: Normal. Liver: Scattered, varied sized low-attenuation regions/lesions, likely cysts. Bile ducts: Nondilated. Gallbladder: No calcified gallstones. Normal caliber wall. Pancreas: Normal attenuation without ductal dilatation. Spleen: Normal. Adrenals: Normal. Kidneys: Symmetric enhancement. 2 small to definitely characterize 7 mm low-attenuation lesion extending from the upper pole of the LEFT kidney. This may be a cyst. Urinary Bladder: Moderate diffuse bladder wall thickening Lymph Nodes: No enlarged lymph nodes. Bowel: Nondilated, no wall thickening. ?? Peritoneum and mesentery: No ascites, free air, or loculated fluid collection. No mesenteric inflammation. Reproductive Organs: Enlarged prostate gland with metallic fiducial implants Abdominal Wall: No hernia Osseous structures: No suspicious findings. Procedure Note Kodi Paul MD - 03/22/2021 EXAMINATION: CT ANGIOGRAM AORTA LOWER EXTREMITY RUNOFF CLINICAL HISTORY: bilateral lifestylie limiting claudication ?level ofdisease TECHNIQUE: Helical CTA of the abdomen, pelvis and lower extremities was performed following the intravenous administration of contrast.Administered 150.0 ml of OMNIPAQUE 350.00 mg/ml. Maximum intensity projection (MIP)were reformatted. 3-D images were generated on an independent workstation. COMPARISON: None FINDINGS: VASCULAR FINDINGS Abdominal aorta: Mild ectasia in the infrarenal abdominal aorta Celiac: Critical stenosis severe stenosis at origin. Then diffuselyaneurysmal, measuring up to 9 mm. SMA: No stenosis. Right renal artery: 2 patent RIGHT renal arteries Left renal artery: 3 patent LEFT renal arteries MARLIN: No stenosis. RIGHT LOWER EXTREMITY Common iliac artery: Proximally aneurysmal, measuring 17 mm. Widelypatent External iliac artery: Widely patent. Internal iliac artery: Proximal severe to critical stenosis, then patent Common femoral artery: Widely patent. Superficial femoral artery: Approximate 6 cm segmental occlusiondistally. Proximal to this, multifocal moderate and severe stenoses. Reconstitutedby collateral vessels at the level of the adductor canal Profundus femoral artery: Widely patent. Popliteal artery: Widely patent Anterior tibial artery: Widely patent. Tibio-peroneal trunk: Occluded Posterior tibial artery: Occluded proximally. Then reconstituted bycollateral vessels and patent to the foot Peroneal artery: Occluded proximally, then reconstituted faintly bycollateral vessels and patent to the ankle Dorsalis pedis: Widely patent. Plantar arteries: Widely patent. LEFT LOWER EXTREMITY Common iliac artery: Aneurysmal, measuring up to 18 mm with severestenosis proximally External iliac artery: Widely patent. Internal iliac artery: Occluded proximally, then reconstituted bycollateral vessels Common femoral artery: Widely patent. Superficial femoral artery: Occluded. Profundus femoral artery: Widely patent. Popliteal artery: Patent after reconstitution by collateral vessels Anterior tibial artery: Widely patent and main vessel supplying flow tothe foot. Tibio-peroneal trunk: Occluded Posterior tibial artery: Occluded Peroneal artery: Faintly reconstituted proximally and faintly patent tothe ankle Dorsalis pedis: Widely patent. Plantar arteries: Occluded/nonopacified NON-VASCULAR FINDINGS Lower chest: Normal. Liver: Scattered, varied sized low-attenuation regions/lesions, likelycysts. Bile ducts: Nondilated. Gallbladder: No calcified gallstones. Normal caliber wall. Pancreas: Normal attenuation without ductal dilatation. Spleen: Normal. Adrenals: Normal. Kidneys: Symmetric enhancement. 2 small to definitely characterize 7 mm low-attenuation lesion extending from the upper pole of the LEFT kidney.This may be a cyst. Urinary Bladder: Moderate diffuse bladder wall thickening Lymph Nodes: No enlarged lymph nodes. Bowel: Nondilated, no wall thickening. Peritoneum and mesentery: No ascites, free air, or loculated fluidcollection. No mesenteric inflammation. Reproductive Organs: Enlarged prostate gland with metallic fiducialimplants Abdominal Wall: No hernia Osseous structures: No suspicious findings. IMPRESSION 1. Extensive bilateral occlusive disease, as described above. Thank you for letting us participate in the care of this patient. If youare a health care provider and have any questions regarding this report,please contact the number below. For patients who have questions please contactthe health senior caregiver that requested your imaging first. Luis Barnard MD IMG CT ORDERABLES * ROXANNE, legs, multiple levels (03/22/2021 9:40 AM EDT) VB Text Report Department: Vascular Surgery Lab Patient: [id number] (ALONSO BURKS) CPT: 84139 ICD10: I73.9 Referring Physician: LUIS BARNARD ?? Phone: Indications: LT great toe numbness, ? peripheral perfusion Diabetes mellitus: No ICD10 Diagnosis Code: I73.9 Findings: Right ?Pressure (mm Hg) ?? ROXANNE ??Waveform ?TBI ?? Brachial Artery ?140 ? Dorsalis Pedis (Ankle) Artery ?59 ?0.42 ??Monophasic ? Posterior Tibial (Ankle) Artery ??72 ?0.51 ??[place]-Biphasic ? Great Toe ?40 ? 0.29 ?? Left ? Pressure (mm Hg) ?? ROXANNE ??Waveform ? TBI ?? Brachial Artery ?140 ? Dorsalis Pedis (Ankle) Artery ?47 ?0.34 ??Monophasic ? Posterior Tibial (Ankle) Artery ?Absent ? Great Toe ?19 ?0.14 ?? [...] Electronically Signed by: LUIS BARNARD on 2021-03-24 07:58:41 AM VASCUBASE VB Text Report End of Report VAS[facility] 03/22/2021 9:40 AM EDT Luis Barnard MD VASCULAR ORDERABLES Performing Organization Address City/State/[facility] Co de Phone Number [facility]ASCU[facility] documented in this encounter Visit Diagnoses Diagnosis PAD (peripheral artery disease) Peripheral vascular disease, unspecified Intermittent claudication Peripheral vascular disease, unspecified documented in this encounter Care Teams Truck Sales Manager Relationship Specialty Start Date End Date Ursula Jacob [address] [place] [address] PCP - General Family Medicine 03/16/21 documented as of this encounter
--- OUTSIDE RECORDS SUMMARY | 2024-08-01 15:19 | XMS_ITS | Encounter Summary ---
Author Organization [facility] Address [facility] [place] [address] Care Team Providers Care Cello Teacher Name Role Phone JenniUrsula Da Silva Primary Care Provider [phone] Encounter Details Date Type Department Care Team (Late Contact Info) Description 01/17/2022 2:00 PM EDT Tech Visit [place] [address] Gerardo Kennedy [place] Intermittent claudication; PAD (peripheral artery disease); Critical [...] EST Office Visit Radiation Oncology at [address] [phone] Gloria Baca PA [facility] [address] [place] [address] documented as of this encounter Procedures Procedure Name Priority Date/Time Associated Diagnosis Comments ROXANNE, LEGS, MULTIPLE LEVELS Routine 01/17/2022 1:54 PM EDT Intermittent claudication PAD (peripheral artery disease) Critical lower limb ischemia documented in this encounter Results * ROXANNE, legs, multiple levels (01/17/2022 1:54 PM EDT) VB Text Report Department: Vascular Surgery Lab Patient: [id number] (ALONSO BURKS) CPT: [id number] Referring Physician: TOM MAHONEY ?? Phone: Indications: [...] PM EDT Tom Mahoney MD VASCULAR ORDERABLES [facility] documented in this encounter Visit Diagnoses Diagnosis Intermittent claudication Peripheral vascular disease, unspecified PAD (peripheral artery disease) Peripheral vascular disease, unspecified Critical lower limb ischemia Unspecified circulatory system disorder documented in this encounter Care Teams Cello Teacher Relationship Specialty Start Date End Date Ursula Jacob [address] [place] [address] PCP - General Family Medicine 03/16/21 documented as of this encounter
--- OUTSIDE RECORDS SUMMARY | 2024-08-01 15:19 | XMS_ITS | Encounter Summary ---
Author Organization [facility] Address [facility] [place] [address] Care Team Providers Care Tack Maker Name Role Phone Ursula Jacob Primary Care Provider Encounter Details Date Type Department Care Team (Late Contact Info) Description 07/16/2023 Telephone Vascular Surgery at [facility] [place] [place] [address] Anuja Forbes RN Social History Tobacco Use [...] Telephone Encounter - Anuja Forbes RN - 07/16/2023 10:57 AM EDT Pt's called asking for a refill of atorvastatin and for it to be routed to [facility] in [facility]. Review of chart shows that Pt has not been seen in a couple of years. RN called PCP's office (Ursula Jacob) at [facility] to see if they would be willing to take over the RX. Student will have one of the nurses call Vasc. RN back. documented in this encounter Plan of Treatment Upcoming Encounters Date Type Department Care Team (Late Contact Info) Description 08/07/2024 9:00 AM EST Office Visit Radiation Oncology at [address] [phone] Gloria Baca PA [facility] DR HEMATOLOGY [place] [address] documented as of this encounter Visit Diagnoses Not on filedocumented in this encounter Care Teams Tack Maker Relationship Specialty Start Date End Date Ursula Jacob [address] [place] [address] PCP - General Family Medicine 03/16/21 documented as of this encounter
--- OUTSIDE RECORDS SUMMARY | 2024-08-01 15:19 | XMS_ITS | Encounter Summary ---
Author Organization [facility] Address [facility] [place] [address] Care Team Providers Care Exhibition Carver Name Role Phone Ursula Jacob Primary Care Provider Reason for Visit * Reason Onset Date Comments Medication Refill 04/11/2021 Encounter Details Date Type Department Care Team (Late Contact Info) Description 04/11/2021 Refill Cardiology at [address] [phone] Luis Barnard MD [facility] [place] [address] Medication Refill Social History Tobacco Use Types [...] AM EST Office Visit Radiation Oncology at [address] [phone] Gloria Baca PA [facility] [place] [address] documented as of this encounter Visit Diagnoses Diagnosis PAD (peripheral artery disease)- Primary Peripheral vascular disease, unspecified documented in this encounter Care Teams Exhibition Carver Relationship Specialty Start Date End Date Ursula Jacob [address] [place] [address] PCP - General Family Medicine 03/16/21 documented as of this encounter
--- OUTSIDE RECORDS SUMMARY | 2024-08-01 15:19 | XMS_ITS | Encounter Summary ---
Author Organization [facility] [place] [address] Care Team Providers Care Bin Worker Name Role Phone Ursula Jacob Primary Care Provider [phone] Reason for Visit * Reason Comments Injections lupron * Treatment/Therapy Plan Authorization (Routine) - Closed Specialty Diagnoses / Procedures Referred By Contdasha t Referred To Contact Diagnoses Primary malignant neoplasm of prostate with high risk of recurrence due to Ida score of 8 to 10 and PSA greater than 20 [address] Hem Onc Infusion [address] [place] [phone] [facility] Rad Onc Office [address] [place] [phone] Referral ID Status Reason Start Date Expiration Date Visits Re quested Visits Authorized [id number] Closed 11/17/2020 11/17/2021 99 99 Encounter Details Date Type Department Care Team (Late st Contact Info) Description 08/23/2021 4:00 PM EST Infusion Hematology Oncology at [address] [phone] Primary malignant neoplasm of prostate [...] Progress Notes * Jodee Zhao RN - 08/23/2021 4:00 PM [...] EST Office Visit Radiation Oncology at [address] [phone] Gloria Baca PA [facility] [place] [address] documented as of this encounter Visit Diagnoses Diagnosis Primary malignant neoplasm of prostate with high risk of recurrence due to Ida score of 8 to 10 and PSA greater than 20 documented in this encounter Administered Medications Inactive Administered Medications - up to 3 most recent administrations Medication Order MAR Action Action Date Dose Rate Site leuprolide (Lupron Depot) injection 22.5 mg 22.5 mg, Intramuscular, ONCE, 1 dose, On Sun08/23/21 at 1545, Routine, This agent is restricted to outpatient use. Is this drug being given as an outpatient? Yes Given 08/23/2021 4:04 PM EST 22.5 mg Le ft Gluteal documented in this encounter Care Teams Bin Worker Relationship Specialty Start Date End Date Ursula Jacob [address] [place] [address] PCP - General Family Medicine 03/16/21 documented as of this encounter
--- OUTSIDE RECORDS SUMMARY | 2024-08-01 15:19 | XMS_ITS | Encounter Summary ---
Author Organization [facility] Address [facility] [place] [address] Care Team Providers Care Solar Panel Technician Name Role Phone Ursula Jacob Primary Care Provider Reason for Visit * Reason Onset Date Comments Medication Refill 10/06/2021 Encounter Details Date Type Department Care Team (Late Contact Info) Description 10/06/2021 Refill Cardiology at [address] [phone] [facility] [place] [address] Medication Refill Social History Tobacco Use Types [...] AM EST Office Visit Radiation Oncology at [address] [phone] [facility] [place] [address] documented as of this encounter Visit Diagnoses Diagnosis PAD (peripheral artery disease)- Primary Peripheral vascular disease, unspecified documented in this encounter Care Teams Solar Panel Technician Relationship Specialty Start Date End Date Ursula Jacob [address] [place] [address] PCP - General Family Medicine 03/16/21 documented as of this encounter
--- OUTSIDE RECORDS SUMMARY | 2024-08-01 15:19 | XMS_ITS | Encounter Summary ---
Author Organization [facility] Address [facility] [place] [address] Care Team Providers Care Avian Keeper Name Role Phone RachelCoby Ursula Primary Care Provider [phone] Encounter Details Date Type Department Care Team (Late Contact Info) Description 06/03/2021 10:30 AM EDT Tech Visit [place] [phone] Chau Iraheta, RVT Critical lower limb ischemia Social History Tobacco [...] AM EST Office Visit Radiation Oncology at [address] [phone] Gloria Baca PA [facility] [address] [place] [address] documented as of this encounter Procedures Procedure Name Priority Date/Time Associated Diagnosis Comments LEG MAP FOR BYPASS GRAFT, BILAT Routine 06/03/2021 10:25 AM EDT Critical lower limb ischemia ROXANNE, LEGS, MULTIPLE LEVELS Routine 06/03/2021 10:25 AM EDT Critical lower limb ischemia documented in this encounter Results * ROXANNE, legs, multiple levels (06/03/2021 10:25 AM EDT) VB Text Report Department: Vascular Surgery Lab Patient: [id number] (ALONSO BURKS) CPT: 93035 ICD10: I70.229 Referring Physician: TOM MAHONEY ?? Phone: Indications: ??PVD Diabetes mellitus: no ICD10 Diagnosis Code: I70.229 Findings: Right ?Pressure (mm Hg) ?? ROXANNE ??Waveform ? TBI ?? Brachial Artery ?132 ? Dorsalis Pedis (Ankle) Artery ?64 ?0.48 ??Monophasic ? Posterior Tibial (Ankle) Artery ??62 ?0.47 ??Monophasic ? Great Toe ?37 ?0.28 ?? Left ? Pressure (mm Hg) ?? ROXANNE ??Waveform ? TBI ?? Brachial Artery ?127 ? Dorsalis Pedis (Ankle) Artery ?62 ?0.47 ??Monophasic ? Posterior Tibial (Ankle) Artery ??0 ? 0.00 ? Great Toe ?41 ?0.31 ?? Interpretation : RIGHT: Moderately severe lower extremity arterial occlusive disease. No significant change compared to previous exam. LEFT: Moderately severe lower extremity arterial occlusive disease. Improved compared to previous exam. Previous [...] Electronically Signed by: TOM MAHONEY on 2021-06-03 11:46:22 AM VASCUBASE VB Text Report End of Report VASCUBASE 06/03/2021 10:2 5 AM EDT Tom Mahoney MD VASCULAR ORDERABLES VASCUBASE * Lower extremity vein johnson de souza (06/03/2021 10:25 AM EDT) VB Text Report Department: Vascular Surgery Lab Patient: [id number] (ALONSO BURKS) CPT: 68636 ICD10: I70.229;Z01.818 Referring Physician: TOM MAHONEY ?? Phone: Indications: ??preop planning for bypass Patient Positioning: ??Reverse Trendelenburg ICD10 Diagnosis Code: I70.229, Z01.818 Findings: Right ?Diameter (mm) ??Depth (mm) ?? GSV, Near SFJ ?4.9 ? GSV, Proximal Thigh ?1.2 ?16.8 ?? GSV, Mid Thigh ? 1.2 ?16.6 ?? GSV, Distal Thigh ?1.1 ?15.5 ?? GSV, ??Knee ? 1.4 ?12.5 ?? GSV Prox Calf ?0.5 ?12.0 ?? Left ? Diameter (mm) ??Depth (mm) ?? GSV, Near SFJ ?5.9 ? GSV, Proximal Thigh ?1.1 ?15.0 ?? GSV, Mid Thigh ? 1.2 ?18.1 ?? GSV, Distal Thigh ?1.5 ?19.4 ?? GSV, ??Knee ? 1.1 ?14.4 ?? GSV Prox Calf ?1.6 ?10.2 ?? Interpretation: Patent great saphenous vein with no evidence of thrombus bilaterally. No previous study in our vascular lab database for comparison. Electronically Signed by: TOM MAHONEY on 2021-06-03 11:45:59 AM VASCUBASE VB Text Report End of Report VASCUBASE 06/03/2021 10:2 5 AM EDT Tom Mahoney MD VASCULAR ORDERABLES VASCUBASE documented in this encounter Visit Diagnoses Diagnosis Critical lower limb ischemia Unspecified circulatory system disorder documented in this encounter Care Teams Avian Keeper Relationship Specialty Start Date End Date Ursula Jacob [address] [place] [address] PCP - General Family Medicine 03/16/21 documented as of this encounter
--- OUTSIDE RECORDS SUMMARY | 2024-08-01 15:19 | XMS_ITS | Encounter Summary ---
Author Organization [facility] Address [facility] [place] [address] Care Team Providers Care Supervisor Fur Dressing Name Role Phone Ursula Jacob Primary Care Provider Encounter Details Date Type Department Care Team (Late st Contact Info) Description 03/22/2021 1:45 PM EDT Office [place] [phone] Tom Mahoney MD [facility] [place] [address] Intermittent claudication; PAD (peripheral artery disease) Social [...] as of this encounter Progress Notes * Renetta Lei MD - 03/22/2021 1:45 PM EDT Vascular Surgery Clinic Note Reason for Clinic Visit: Progressive left leg claudication HPI: Rey Jean Baptiste is a 71 year old man with progressive left leg claudication. He is now starting to describe symptoms consistent with nocturnal metatarsalgia and developing rest pain. No tissue loss. States he can ambulate about 100 feet before needing to stop. Since he was first evaluated by Dr Barnard he has been on optimal medical management including aspirin, atorvastatin and a walking program . Although, he states recently he has not been on aspirin. At his last visit in September 2020 he wasstarted on Pletal with minimal improvement in his [...] Findings: ?? Right ?Pressure (mm Hg) ?? ROXNANE ??Waveform ?TBI ?? Brachial Artery ?140 ? Dorsalis Pedis (Ankle) Artery ?59 ?0.42 ??Monophasic ? Posterior Tibial (Ankle) Artery ??72 ?0.51 ??Bolivar-Biphasic ? Great Toe ?40 ? 0.29 ? [...] 19 on the affected side. CTA notable for multi-level disease. Discussed risks, benefits and alternatives of left lower extremity angiogram with intervention withmoderate sedation. Reviewed the natural history of peripheral arterial disease and it's progressivenature. Reviewed that if endovascular revascularization was not able to be achieved he may require a bypass. Discussed that even with intervention he would require long-term surveillance and possiblere-intervention as needed. Continue medical management with aspirin and statin. Foot protective strategies reviewed. Will schedule for left lower extremity angiogram Renetta Lei Vascular Surgery Fellow pager [phone] 03/22/2021 I saw and evaluated Rey Jean Baptiste and agree with this note and plan as scribed in my presence. Tom Mahoney MD, MS Section of Vascular Surgery documented in this encounter Plan of Treatment Upcoming Encounters Date Type Department Care Team (Late st Contact Info) Description 08/07/2024 9:00 AM EST Office Visit Radiation Oncology at [address] [phone] Gloria Baca PA [facility] DR HEMATOLOGY [place] [address] documented as of this encounter Visit Diagnoses Diagnosis Intermittent claudication Peripheral vascular disease, unspecified PAD (peripheral artery disease) Peripheral vascular disease, unspecified documented in this encounter Care Teams Supervisor Fur Dressing Relationship Specialty Start Date End Date Ursula Jacob [address] [place] [address] PCP - General Family Medicine 03/16/21 documented as of this encounter
--- OUTSIDE RECORDS SUMMARY | 2024-08-01 15:19 | XMS_ITS | Encounter Summary ---
Author Organization [facility] [place] [address] Care Team Providers Care Piping Supervisor Name Role Phone Tylor William Primary Care Provider [phone] Reason for Visit * Reason Comments Injections SC Jax * Treatment/Therapy Plan Authorization (Routine) - Closed Specialty Diagnoses / Procedures Referred By Contac t Referred To Contact Diagnoses Primary malignant neoplasm of prostate with high risk of recurrence due to Valera score of 8 to 10 and PSA greater than 20 [address] Hem Onc Infusion [address] [place] [phone] [facility] Rad Onc Office [address] [place] [phone] Referral ID Status Reason Start Date Expiration Date Visits Re quested Visits Authorized [id number] Closed 11/17/2020 11/17/2021 99 99 Encounter Details Date Type Department Care Team (Late st Contact Info) Description 02/18/2021 8:30 AM EDT Infusion Hematology Oncology at [address] [phone] Primary malignant neoplasm of prostate with high risk of recurrence due to Valera score of 8 to 10 and PSA [...] 36.6 ??C (97.8 ??F) 02/18/2021 8:24 AM ED T Respiratory Rate 18 02/18/2021 8:24 AM EDT Oxygen Saturation 100% 02/18/2021 8:24 AM EDT Inhaled Oxygen Concentration - - Weight 78.1 kg (172 lb 3.2 oz) 02/18/2021 8:24 A M EDT Height 171 cm (5' 7.32) 02/18/2021 8:24 AM EDT Body Mass Index 26.71 02/18/2021 8:24 AM EDT documented in this encounter Progress Notes * Hemalatha Maurer RN - 02/18/2021 8:30 AM EDT Infusion Note Diagnosis:Prostate Cancer Treatment: Leuprolide Injection Lupron (Eligard) 22.5mg injected in left gluteal site. Patient instructed on side effects of Leuprolide. Patient states understanding of teaching, Patientaware to call clinic with any questions or concerns. Plan: Return to clinic as scheduled. documented in this encounter Plan of Treatment Upcoming Encounters Date Type Department Care Team (Late st Contact Info) Description 08/07/2024 9:00 AM EST Office Visit Radiation Oncology at [address] [phone] Gloria Baca PA [facility] HEMATOLOGY [place] [address] documented as of this encounter Visit Diagnoses Diagnosis Primary malignant neoplasm of prostate with high risk of recurrence due to Valera score of 8 to 10 and PSA greater than 20 documented in this encounter Administered Medications Inactive Administered Medications - up to 3 most recent administrations Medication Order MAR Action Action Date Dose Rate Site leuprolide (3 month) (Eligard) injection 22.5 mg 22.5 mg, Subcutaneous, ONCE, 1 dose, On Sun02/18/21 at 0845, Routine, This agent is restricted to outpatient use. Is this drug being given as an outpatient? Yes Given 02/18/2021 8:58 AM EDT 22.5 mg Left Upper Outer Quadrant documented in this encounter Care Teams Piping Supervisor Relationship Specialty Start Date End Date Tylor William PA PCP - General General Internal Medicine 01/13/20 6/2 11/14 documented as of this encounter
--- OUTSIDE RECORDS SUMMARY | 2024-08-01 15:19 | XMS_ITS | Encounter Summary ---
Author Organization [facility] [place] [address] Care Team Providers Care [facility] Office Supervisor Name Role Phone Ursula Jacob Primary Care Provider [phone] Reason for Referral * Diagnostic Test (Routine) - Closed Specialty Diagnoses / Procedures Referred By Contac t Referred To Contact Radiology Diagnoses Critical lower limb ischemia Pre-procedural examination Procedures VS Arteriogram Lower Extremity Vascular Surgery Tom Mahoney MD [facility] [place] [address] [place] [address] Referral ID Status Reason Start Date Expiration Date V isits Requested Visits Authorized [id number] Closed Specialty Service Requested 03/23/2021 09/22/2022 1 1 Encounter Details Date Type Department Care Team (Late Contact Info) Description 03/23/2021 Orders [place] [address] Jolanta Sexton RN Critical lower limb ischemia; Pre-procedural examination Social [...] AM EST Office Visit Radiation Oncology at [address] [phone] Gloria Baca PA [facility] DR HEMATOLOGY [place] [address] documented as of this encounter Results * VS Arteriogram Lower Extremity Vascular Surgery (04/26/2021 12:00 PM EDT) Anatomical Region Laterality Modality X-Ray Angiograph y Narrative 05/09/2021 10:15 AM EDT Attestation signed [...] Section of Vascular Surgery Vascular Surgery Interventional Procedure Note Date of procedure: 04/26/21 Pre-Procedure Diagnosis: Left leg rest pain Post-Procedure Diagnosis: Left leg rest pain Procedure: - Rt. femoral ??arterial access with fluoroscopic and ultrasound guidance - [...] ??7 Fr Indications for the procedure: Mr Jean [...] dissection Procedure in detail: ?The patient was properly identified in the pre-operative holding area. After discussions of the risks and benefits, operative consent was obtained. The patient was brought to the angiography suite and placed on the angio table. The patient was prepped and draped in the usual sterile fashion. A time-out was performed by the attending surgeon confirming the patient, the intended procedure, the side of intervention and equipment needed. Split doses of fentanyl and versed were administered for conscious sedation by the Interventional Radiology nurse ??during continuous monitoring of pulse, blood pressure and oxygen saturation. After injection of local anesthetic, percutaneous access was obtained via the Rt. femoral ??artery under fluoroscopic and ultrasound guidance using a micro puncture technique. A cope wire was inserted and upsized to a 5 Romansh sheath over a J-wire. A 5F Omni [...] were unable to remain intraluminal. We then decided to abort this attempt and turned our attention to the left common iliac artery lesion. The destination sheath was pulled back to the left common iliac artery. A VBX 9x59mm stent graft was deployed in the proximal left BRIANA, with the proximal end at the level of the aortic bifurcation. This was then post-dilated with a [id number] [place] balloon proximally and a [id number] [place] balloon distally. A completion angiogram was obtained with the findings above. Sheath exchange was then performed for a short 7Fr sheath. A mynx closure device was deployed and manual pressure was then held for 12 minutes until adequate hemostasis was obtained. The wound was dressed with a sterile gauze and tegaderm. The patient was taken to the recovery [...] who have questions please contact the health intensive care nurse that requested your imaging first. ? Electronically signed by: Tom Mahoney MD, [facility] ([phone]), at 05/09/2021 10:15 AM Procedure Note Tom Mahoney MD - 05/09/2021 Attestation signed by Tom Mahoney MD at 05/02/2021 10:56 PM Attending Attestation I was the attending physician supervising the resident/fellow in the abovecare and I was present with the resident/fellow for the entire procedure. I was present during the intraservice time as documented by the sedationRN. Tom Mahoney MD, MS Section of Vascular Surgery Vascular Surgery Interventional Procedure Note Date of procedure: 04/26/21 Pre-Procedure Diagnosis: Left leg rest pain Post-Procedure Diagnosis: Left leg rest pain Procedure: - Rt. femoral arterial access with fluoroscopic and ultrasound guidance - Aortogram - second order selective catheterization of left external iliac artery - LLE angiogram - Attempted crossing of left SFA occlusion - Left common iliac artery stent graft placement ([id number] [id number]),post-dilated to 10mm distally and 12mm proximally - [...] hx of prostate cancer and PVD who presentswith progressive LLE claudication. He states that he can only walk about 100feet before he needs to stop and take a rest. He is starting to endorsenoctural metatarsalgia and early rest pain. He denies tissue loss. He takes a dailyASA, pletal, and statin. Findings: - Aortogram: widely patent infrarenal aorta, right common iliac andexternal iliac arteries widely patent, right internal iliac artery patent witsever proximal stenosis, left common iliac artery patent with severe focalstenosis of mid segment, left external iliac artery widely patent, left internaliliac artery not well visualized - LLE arteriogram: common femoral artery widely patent, profunda widelypatent, SFA patent proximally but occludes shortly after takeoff, poplitealartery reconstitutes behind the knee, AT widely patent with runoff to foot, [place], PT, and peroneal arteries not well visualized, peroneal may fill latefrom collaterals in distal calf - Intervention: Left common iliac artery stent graft placement ([id number]), post-dilated to 10mm distally and 12mm proximally - Completion angiogram: widely patent left BRIANA stent graft, no evidenceof extravasation or dissection Procedure in detail: The patient was properly identified in the pre-operativeholding area. After discussions of the risks and benefits, operative consent was obtained. The patient was brought to the angiography suite and placed onthe angio table. The patient was prepped and draped in the usual sterilefashion. A time-out was performed by the attending surgeon confirming the patient,the intended procedure, the side of intervention and equipment needed. Splitdoses of fentanyl and versed were administered for conscious sedation by the Interventional Radiology nurse during continuous monitoring of pulse,blood pressure and oxygen saturation. After injection of local anesthetic, percutaneous access was obtained via the Rt. femoral artery underfluoroscopic and ultrasound guidance using a micro puncture technique. A cope wirewas inserted and upsized to a 5 Romansh sheath over a J-wire. A 5F Omni flush catheter was then advanced into the infrarenal aorta over the wire.Diagnostic aortography was performed with the above findings. We then used a stiff glidewire and flush catheter to select the left external iliac artery.The catheter was advanced, the wire was removed, and diagnostic LLEarteriogram was obtained in stations with the findings above. We then advanced a stiffamplatz wire into the left profunda artery, the catheter was removed, and sheath exchange was performed for a 7Fr 45cm destination sheath, which was placedin the distal common femoral artery. We attempted to using a rubicon catheterand glidewire to cross the patient's long segment SFA occlusion, however wewere unable to remain intraluminal. We then decided to abort this attempt andturned our attention to the left common iliac artery lesion. The destinationsheath was pulled back to the left common iliac artery. A VBX 9x59mm stent graftwas deployed in the proximal left BRIANA, with the proximal end at the level ofthe aortic bifurcation. This was then post-dilated with a [id number] [place]balloon proximally and a [id number] [place] balloon distally. A completion angiogramwas obtained with the findings above. Sheath exchange was then performed for ashort 7Fr sheath. A mynx closure device was deployed and manual pressure wasthen held for 12 minutes until adequate hemostasis was obtained. The wound wasdressed with a sterile gauze and tegaderm. The patient was taken to the recoveryroom having suffered no apparent untoward event. Dr. [...] patients who have questions please contactthe health intensive care nurse that requested your imaging first. Tom Mahoney MD IMG IR ORDERABLES * Creatinine (04/26/2021 7:56 AM EDT) Creatinine 0.82 0.80 - 1.50 mg/dL [facility] Est Glomerular Filtration Rate 89 >=60 mL/min/1. 73 m?? [facility] Comment: This patient? s estimated [...] In Lab Tom Mahoney MD CHEMISTRY ORDERABLES [facility] [place] [address] documented in this encounter Visit Diagnoses Diagnosis Critical lower limb ischemia Unspecified circulatory system disorder Pre-procedural examination Preoperative examination, unspecified Critical lower limb ischemia- Primary Unspecified circulatory system disorder Pre-procedural examination Preoperative examination, unspecified documented in this encounter Care Teams [facility] Office Supervisor Relationship Specialty Start Date End Date Ursula Jacob [address] [place] [address] PCP - General Family Medicine 03/16/21 documented as of this encounter
--- OUTSIDE RECORDS SUMMARY | 2024-08-01 15:19 | XMS_ITS | Encounter Summary ---
Author Organization [facility] [place] [address] Care Team Providers Care Compound Machine Operator Name Role Phone Tylor William Primary Care Provider [phone] Reason for Referral * Diagnostic Test (Routine) - Closed Specialty Diagnoses / Procedures Referred By Contac t Referred To Contact Radiology Diagnoses PAD (peripheral artery disease) Intermittent claudication Procedures CT Angiogram Aortic Lower Extremity Runoff Luis Barnard MD [facility] [place] [address] [facility] [place] [address] Referral ID Status Reason Start Date Expiration Date V isits Requested Visits Authorized [id number] Closed Specialty Service Requested 10/05/2020 04/04/2022 1 1 Reason for Visit * Reason Comments Peripheral Arterial Disease Follow-up Encounter Details Date Type Department Care Team (Late st Contact Info) Description 10/05/2020 3:30 PM EST Office [place] [address] Luis Barnard MD [facility] [place] [address] PAD (peripheral artery disease); Intermittent claudication Social [...] 36.7 ??C (98.1 ??F) 10/05/2020 3:28 PM ES T Respiratory Rate 13 10/05/2020 3:28 PM EST Oxygen Saturation 100% 10/05/2020 3:28 PM EST Inhaled Oxygen Concentration - - Weight 74.8 kg (165 lb) 10/05/2020 3:28 PM EST Height 175.3 cm (5' 9) 10/05/2020 3:28 PM EST Body Mass Index 24.37 10/05/2020 3:28 PM EST documented in this encounter Progress Notes * Luis Barnard MD - 10/05/2020 3:30 PM EST Images from the original note were not included. [facility] [place] [address] CARDIOVASCULAR MEDICINE OUTPATIENT CONSULTATION Alonso Burks [id number] 10/05/2020 REFERRING PROVIDER: Tylor William CHIEF COMPLAINT: Chief Complaint Patient presents with ??? Peripheral Arterial Disease ??? Follow-up PROBLEM LIST Patient Active Problem List Diagnosis ??? Primary malignant neoplasm of prostate with high risk of recurrence due to [place] score of 8 to 10 and PSA greater than 20 ??? Malignant neoplasm of prostate HISTORY OF PRESENT ILLNESS: Mr. Burks is a very pleasant 70-year-old gentleman with a history of stage IIIc prostate cancer status post pelvic radiation and now on neoadjuvant Lupron therapy, bilateral peripheral artery disease who presents for follow-up. I met him in April 13, 2020 for evaluation of lower extremity pain. Hehad evidence of claudication as well as nonvascular [...] and rest because of bilateral claudication. He has no rest pain. He has no ulcerations. He [...] needed. For dysuria and urinary frequency No current facility-administered medications for [...] disease with less limiting claudication. Despite being veryactive and splotches he can be, he continues [...] or concerns. Luis Barnard MD, MPH, RPVI, [facility] Cardiovascular Sugarcane Research TechnicianNeonatal Specialistphot[place] [address] documented in this encounter Plan of Treatment Upcoming Encounters Date Type Department Care Team (Late st Contact Info) Description 08/07/2024 9:00 AM EST Office Visit Radiation Oncology at [address] [phone] Gloria Baca PA [facility] [place] [address] documented as of this encounter Results * CT Angiogram Aortic [...] who have questions please contact the health home health care worker that requested your imaging first. ? Narrative [...] patients who have questions please contactthe health home health care worker that requested your imaging first. Electronically signed by: Kodi Paul MD, [facility]([phone]), at 03/22/2021 11:58 AM Luis Barnard MD IMG CT ORDERABLES * ROXANNE, legs, multiple levels (03/22/2021 9:40 AM EDT) VB Text Report Department: Vascular Surgery Lab Patient: [id number] (ALONSO BURKS) CPT: 07476 ICD10: I73.9 Referring Physician: LUIS BARNARD ?? Phone: Indications: LT great toe numbness, ? peripheral perfusion Diabetes mellitus: No ICD10 Diagnosis Code: I73.9 Findings: Right ?Pressure (mm Hg) ?? ROXANNE ??Waveform ?TBI ?? Brachial Artery ?140 ? Dorsalis Pedis (Ankle) Artery ?59 ?0.42 ??Monophasic ? Posterior Tibial (Ankle) Artery ??72 ?0.51 ??[place]-Biphasic ? Great Toe ?40 ? 0.29 ?? [...] Barnard MD VASCULAR ORDERABLES Performing Organization Address City/State/[facility] Co de Phone Number [employer] documented in this encounter Visit Diagnoses Diagnosis PAD (peripheral artery disease) Peripheral vascular disease, unspecified Intermittent claudication Peripheral vascular disease, unspecified documented in this encounter Care Teams Compound Machine Operator Relationship Specialty Start Date End Date Tylor William PA PCP - General General Internal Medicine 01/13/20 6/2 11/14 documented as of this encounter
--- OUTSIDE RECORDS SUMMARY | 2024-08-01 15:19 | XMS_ITS | Encounter Summary ---
Author Organization [facility] Address [facility] [place] [address] Care Team Providers Care Sales Support Consultant Name Role Phone Ursula Jacob Primary Care Provider Encounter Details Date Type Department Care Team (Late st Contact Info) Description 02/14/2022 11:00 AM EDT Office Visit Radiation Oncology at [address] [phone] Grace Raymond APRN [facility] [place] [address] Malignant neoplasm of prostate (Primary Dx) Social [...] 36.6 ??C (97.9 ??F) 02/14/2022 11:03 AM E DT Respiratory Rate 18 02/14/2022 11:03 AM EDT Oxygen Saturation 97% 02/14/2022 11:03 AM EDT Inhaled Oxygen Concentration - - Weight 81.5 kg (179 lb 9.6 oz) 02/14/2022 11:03 AM EDT Height 172.7 cm (5' 7.99) 02/14/2022 11:03 AM E DT Body Mass Index 27.31 02/14/2022 11:03 AM EDT documented in this encounter Progress Notes * Grace Raymond Ashley, PHILATELIC CONSULTANT - 02/14/2022 11:00 AM EDTSummary: 71-year-old male diagnosed with high risk prostate cancer in 2019. Plan 36 months ADT. EBRT compl 01/05/20. Images from the original note were not included. 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 active everyday Pt fell couple months ago and hit head. Went to [facility] and was said to have had [...] Extremity Vascular Surgery 04/26/2021 Tom Mahoney MD [facility] INTERVENTIONL RAD Family History Problem Relation [...] down somewhat. Weight/appetite/diet increased 15lb (176lb in Jul) now 170lb Respiratory:no congestion, cough, wheezing GI:does [...] this winter and checked after fall in [facility] ED Mood:good , does not have depression. Sleep: noc sweats q noc are the things that waken him and then he gets up to empty bladder. 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 Recently completed a [employer] project. Notices upper body strength less. Exercise:with [...] Reviewed this visit: Date PSA Test Notes 02/01/21 <0.01 11/07/21 0.01 <7.0 08/16/21 0.01 [...] his lupron although frustrated that he thought the last injection was in April. One more in Jul completes 36 months. RTC 3 months for [...] Smoking:never Alcohol: rare Annual exam with PCP: [facility] Up to date on vaccinations:Covid vax [...] the radiation therapy/prostate cancer Grace Raymond MSN, PHILATELIC CONSULTANT, INSPECTOR BALL POINTS-C Nurse Practitioner Radiation Oncology documented in this encounter Plan of Treatment Upcoming Encounters Date Type Department Care Team (Late st Contact Info) Description 08/07/2024 9:00 AM EST Office Visit Radiation Oncology at [address] [phone] Gloria Baca PA [facility] [place] [address] documented as of this encounter Visit Diagnoses Diagnosis Malignant neoplasm of prostate- Primary documented in this encounter Care Teams Sales Support Consultant Relationship Specialty Start Date End Date Ursula Jacob [address] [place] [address] PCP - General Family Medicine 03/16/21 documented as of this encounter
--- OUTSIDE RECORDS SUMMARY | 2024-08-01 15:19 | XMS_ITS | Encounter Summary ---
Author Organization [facility] Address [facility] [place] [address] Care Team Providers Care Pbx Installer Name Role Phone Tylor William Primary Care Provider [phone] Encounter Details Date Type Department Care Team (Late Contact Info) Description 01/25/2021 Telephone [place] [phone] Angelita Bateman Social History Tobacco Use Types Packs/Day Years [...] encounter Miscellaneous Notes * Telephone Encounter - Angelita Bateman - 01/25/2021 10:18 AM EDT RECALL: SINDHU [id number] to schedule appointment from recall documented in this encounter Plan of Treatment Upcoming Encounters Date Type Department Care Team (Late st Contact Info) Description 08/07/2024 9:00 AM EST Office Visit Radiation Oncology at [address] [phone] Gloria Baca PA [facility] DR HEMATOLOGY [place] [address] documented as of this encounter Visit Diagnoses Not on filedocumented in this encounter Care Teams Pbx Installer Relationship Specialty Start Date End Date Tylor William PA PCP - General General Internal Medicine 01/13/2002/23 documented as of this encounter
--- OUTSIDE RECORDS SUMMARY | 2024-08-01 15:19 | XMS_ITS | Encounter Summary ---
Author Organization [facility] Address [facility] [place] [address] Care Team Providers Care Ordnance Engineering Technician Name Role Phone Ursula Jacob Primary Care Provider [phone] Encounter Details Date Type Department Care Team (Late st Contact Info) Description 11/17/2021 9:30 AM EST Office Visit Radiation Oncology at [address] [phone] Grace Raymond APRN [facility] [place] [address] Malignant neoplasm of prostate (Primary Dx) Social [...] 36.7 ??C (98.1 ??F) 11/17/2021 10:[address] Respiratory Rate 18 11/17/2021 10:38 AM EST Oxygen Saturation 99% 11/17/2021 10:38 AM EST Inhaled Oxygen Concentration - - Weight 77.1 kg (170 lb) 11/17/2021 10:38 AM EST Height 172.3 cm (5' 7.84) 11/17/2021 10:[address] Body Mass Index 25.97 11/17/2021 10:38 AM EST documented in this encounter Progress Notes * Grace Raymond, SCIENTIFIC WRITER - 11/17/2021 9:30 AM ESTSummary: 71-year-old male diagnosed with high risk prostate cancer in 2019. Plan 36 months ADT. EBRT compl 01/05/20. Images from the original note were not included. 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 project. Notices upper body strength less. Exercise:with [...] Smoking:never Alcohol: rare Annual exam with PCP: [facility] Up to date on vaccinations:Covid vax at [...] mos Labs: PSA, testosterone, CBC, CMP Rey Markel had the opportunity to ask questions and I answered them to the best of my knowledge. Rey Jean Baptiste agreed to contact radiation oncology in between visits if he has any questions/concernsor new symptoms in regards to the radiation therapy/prostate cancer Grace Raymond MSN, SCIENTIFIC WRITER, BINDER STRIPPER MACHINE-C Nurse Practitioner Radiation Oncology documented in this encounter Plan of Treatment Upcoming Encounters Date Type Department Care Team (Late st Contact Info) Description 08/07/2024 9:00 AM EST Office Visit Radiation Oncology at [address] [phone] Gloria Baca PA [facility] DR [place] [address] documented as of this encounter Visit Diagnoses Diagnosis Malignant neoplasm of prostate- Primary documented in this encounter Care Teams Ordnance Engineering Technician Relationship Specialty Start Date End Date Ursula Jacob [address] [place] [address] PCP - General Family Medicine 03/16/21 documented as of this encounter
--- OUTSIDE RECORDS SUMMARY | 2024-08-01 15:19 | XMS_ITS | Encounter Summary ---
Author Organization [facility] Address [facility] [place] [address] Care Team Providers Care Tie Hacker Name Role Phone Ursula Jacob Primary Care Provider Encounter Details Date Type Department Care Team (Latest Contact Info) Description 11/09/2022 Travel Social History Tobacco Use Types Packs/Day [...] EST Office Visit Radiation Oncology at [address] [phone] Gloria Baca PA [facility] DR [place] [address] documented as of this encounter Visit Diagnoses Not on filedocumented in this encounter Care Teams Tie Hacker Relationship Specialty Start Date End Date Ursula Jacob [address] [place] [address] PCP - General Family Medicine 03/16/21 documented as of this encounter
--- OUTSIDE RECORDS SUMMARY | 2024-08-01 15:19 | XMS_ITS | Encounter Summary ---
Author Organization [facility] Address [facility] [place] [address] Care Team Providers Care Ux Visual Designer Name Role Phone Ursula Jacob Primary Care Provider Encounter Details Date Type Department Care Team (Late st Contact Info) Description 05/18/2022 11:00 AM EDT Office Visit Radiation Oncology at [address] [phone] Grace Raymond APRN [facility] [place] [address] Malignant neoplasm of prostate (Primary Dx) Social [...] Sign Reading Time Taken Comments Blood Pressure 145/70 05/18/2022 10:52 AM EDT Pulse 77 05/18/2022 10:52 AM EDT Temperature 36.5 ??C (97.7 ??F) 05/18/2022 10:52 AM E DT Respiratory Rate 18 05/18/2022 10:52 AM EDT Oxygen Saturation 100% 05/18/2022 10:52 AM EDT Inhaled Oxygen Concentration - - Weight 78.7 kg (173 lb 6.4 oz) 05/18/2022 10:52 AM EDT Height 172.7 cm (5' 7.99) 05/18/2022 10:52 AM E DT Body Mass Index 26.37 05/18/2022 10:52 AM EDT documented in this encounter Progress Notes * Grace Raymond Ashley, COUNTY SURVEYOR - 05/18/2022 11:00 AM EDTSummary: 71-year-old male diagnosed with high risk prostate cancer in 2019. Plan 36 months ADT. EBRT compl 01/05/20. Images from the original note were not included. [facility] [place] [address] Phone: RADIATION ONCOLOGY FOLLOW UP NOTE Date of visit: 05/10/2022 Patient Rey Jean Baptiste 1950 PCP: Ursula Jacob Urologist:Jean-Claude Woodall MD [facility] (Last seen 6 months ago, goes [...] at this point. Next due July 2022. 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 Active everyday Pt fell 5 months ago and hit head. [facility] No LOC. He trip over shovel and fell hitting head. Probably had 3 weeks worth of checks with medicine. He had headache and fatigue for a couple weeks. No changes in vision. Some postural hypotension for a bit. He also tore lip but thathealed. He feels compl recovered from incident w/o any further falls or loss of balance. No covid or respiratory illnesses. Still gets [...] with claudication or worsening of sx. Medications 05/18/22 1114 Medication Sig Taking? atorvastatin (Lipitor) 40 mg Tablet Take 1 tablet by mouth every evening. Yes ibuprofen (Advil;Motrin) 200 mg Tablet Take 600 mg by mouth every 6 hours as needed. For dysuria and urinary frequency Yes tamsulosin (FLOMAX) 0.4 mg Capsule 0.8 mg nightly. Yes No Known Allergies Past Medical History: Diagnosis Date ??? Lactose intolerance ??? Prostate cancer Past Surgical History: Procedure Laterality Date ??? PROSTATE BIOPSY 07/04/2019 ??? VS ARTERIOGRAM LOWER EXTREMITY VASCULAR SURGERY 04/26/2021 VS Arteriogram Lower Extremity Vascular Surgery 04/26/2021 Tom Mahoney MD [facility] INTERVENTIONL RAD Family History Problem Relation Age of Onset ??? Cancer Maternal Grandfather 80 throat Social History Tobacco Use ??? Smoking status: Never Smoker ??? Smokeless tobacco: Never Used Vaping Use ??? Vaping Use: Never used Substance Use Topics ??? Alcohol use: Yes Comment: occasional beer ??? Drug use: Never Review of Symptoms: I reviewed the IPSS/KELL/Epic-Cp survey results from today 05/18/2022 10:47 AM EDT - Filed by Patient Urinary function problem Small problem Urinary control Occasional dribbling Urinary dripping/leakage problem No problem 5. How big a problem, if any, has each of the following been for you? Weak urine stream/incomplete bladder emptying Small problem 6. How big a problem, if any, has each of the following been for you? Rectal pain or urgency of bowel movements No problem Overall problems with your bowel movements No problem 10. How big a problem, if any, has each of the following been for you? Hot flashes or breast tenderness/enlargement Moderate problem Lack of energy Moderate problem Urinary Incontinence Symptom Score (range: 0 - 12) 1 Urinary Irritation/Obstructive Symptom Score (range: 0 - 12) 2 Bowel Symptom Score (range: 0 - 16) 0 Vitality/Hormonal Symptom Score (range: 0 - 12) 6 Overall Prostate Cancer QOL Score (range: 0 - 60) 9 Q - Prostate Followup Survey Question 05/18/2022 10:51 AM EDT - Filed by Patient Reason for visit Follow up on existing problem(s) Incomplete emptying Less than half the time Frequency Less than half the time Intermittency Less than half the time Urgency Less than 1 time in 5 Weak Stream About half the time Straining Not at all Nocturia 3 times Quality of life Mixed - about equally satisfied and dissatisfied Total IPSS Score (range: 0 - 35) 13 (Moderate LUTS) Confidence, level - past 6 months Very low Penetration - past 6 months No sexual activity Penetration, maintain - past 6 months Did not attempt intercourse Erection, maintain - past 6 months Did not attempt intercourse Sexual satisfaction - past 6 months Did not attempt intercourse Sexual Health in Men (range: 1 - 21) 1 (Severe ED) Patient concerns for today's visit: [...] weakness Neuro:nothing focal, did have a concussion 5 months ago and checked after fall in [facility] ED. No further falls or loss of balance. Mood:good , does not have depression. Sleep: noc sweats q noc are the things that waken him and then he gets up to empty bladder. 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 Recently completed a [employer] project. Notices upper body strength less. 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 BP 145/70 (Patient Position: Sitting) Pulse 77 Temp 36.5 ??C (97.7 ??F) (Temporal) Resp 18 Ht 172.7 cm (5' 7.99) Wt 78.7 kg (173 lb 6.4 oz) Constitutional: seen in clinic no distress [...] Reviewed this visit: Date PSA Test Notes 05/12/22 <0.01 <7.0 02/01/21 <0.01 11/07/21 0.01 <7.0 08/16/21 0.01 <7.0 05/09/21 0.01 7.0 02/10/2021 0.01 7.9 11/08/2019 0.01 9.3 08/18/2020 0.01 8.8 05/18/2020 0.01 7.0 01/12/2020 0.02 7.9 06/2019 13.5 06/2018 10.7 05/12/22 CBC/CMP ?? Component Latest Ref Rng & Units 05/12/2022 04/26/2021 04/13/2020 BUN 16 21 (H) Creatinine 0.9 0.82 0.91 Sodium 143 140 Potassium 3.6 5.3 (H) Calcium 9.0 9.4 Total Protein 7.2 6.7 Albumin 3.6 4.1 Total Bilirubin 0.3 0.5 Alk Phos 139 (H) 109 AST 16 15 ALT 24 15 PSA Total (Ultrasensitive) <0.01 Component Latest Ref Rng & Units 05/12/2022 WBC 9.59 RBC 5.32 Hemoglobin 14.2 Hematocrit 43.7 Platelets 218 Neutr Abs (ANC) 6.52 Assessment: 72 y.o. presenting for follow up/ [...] Smoking:never Alcohol: rare Annual exam with PCP: [facility] Up to date on vaccinations:Covid vax at [place] maybe 4 months ago. Booster sched in [...] the radiation therapy/prostate cancer Grace Raymond MSN, COUNTY SURVEYOR, DIGITAL PROGRAM MANAGER-C Nurse Practitioner Radiation Oncology documented in this encounter Plan of Treatment Upcoming Encounters Date Type Department Care Team (Late st Contact Info) Description 08/07/2024 9:00 AM EST Office Visit Radiation Oncology at [address] [phone] Gloria Baca PA [facility] DR HEMATOLOGY [place] [address] documented as of this encounter Visit Diagnoses Diagnosis Malignant neoplasm of prostate- Primary documented in this encounter Care Teams Ux Visual Designer Relationship Specialty Start Date End Date Ursula Jacob [address] [place] [address] PCP - General Family Medicine 03/16/21 documented as of this encounter
--- OUTSIDE RECORDS SUMMARY | 2024-08-01 15:19 | XMS_ITS | Encounter Summary ---
Author Organization [facility] Address [facility] [place] [address] Care Team Providers Care Creel Clerk Name Role Phone Ursula Jacob Primary Care Provider [phone] Encounter Details Date Type Department Care Team (Late st Contact Info) Description 05/19/2021 9:30 AM EDT Office Visit Radiation Oncology at [address] [phone] Grace Raymond APRN [facility] [place] [address] Malignant neoplasm of prostate Social History Tobacco [...] 36.6 ??C (97.9 ??F) 05/19/2021 9:32 AM ED T Respiratory Rate 18 05/19/2021 9:32 AM EDT Oxygen Saturation 97% 05/19/2021 9:32 AM EDT Inhaled Oxygen Concentration - - Weight 81.6 kg (179 lb 12.8 oz) 05/19/2021 9:32 AM EDT Height 172.3 cm (5' 7.84) 05/19/2021 9:32 AM ED T Body Mass Index 27.47 05/19/2021 9:32 AM EDT documented in this encounter Progress Notes * Grace Raymond, MANUFACTURING LAB TECHNICIAN - 05/19/2021 9:30 AM EDTSummary: 71-year-old male diagnosed with high risk prostate cancer in 2019. Status post radiation Images from the original note were not included. 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 Colorectal screening:does not [...] the radiation therapy/prostate cancer Grace Raymond MSN, MANUFACTURING LAB TECHNICIAN, V[place] SUPERVISOR-C Nurse Practitioner Radiation Oncology documented in this encounter Plan of Treatment Upcoming Encounters Date Type Department Care Team (Late st Contact Info) Description 08/07/2024 9:00 AM EST Office Visit Radiation Oncology at [address] [phone] Gloria Baca PA [facility] DR HEMATOLOGY AND ONCOLOGY [place], [place] [phone] documented as of this encounter Visit Diagnoses Diagnosis Malignant neoplasm of prostate documented in this encounter Care Teams Creel Clerk Relationship Specialty Start Date End Date Ursula Jacob [address] [place] [address] PCP - General Family Medicine 03/16/21 documented as of this encounter
--- OUTSIDE RECORDS SUMMARY | 2024-08-01 15:19 | XMS_ITS | Encounter Summary ---
Author Organization [facility] Address [facility] [place] [address] Care Team Providers Care Breeding Technician Name Role Phone Ursula Jacob Primary Care Provider [phone] Encounter Details Date Type Department Care Team (Latest Contact Info) Description 08/22/2022 Travel Social History Tobacco Use Types Packs/Day [...] EST Office Visit Radiation Oncology at [address] [phone] Gloria Baca PA [facility] DR [place] [address] documented as of this encounter Visit Diagnoses Not on filedocumented in this encounter Care Teams Breeding Technician Relationship Specialty Start Date End Date Ursula Jacob [address] [place] [address] PCP - General Family Medicine 03/16/21 documented as of this encounter
--- OUTSIDE RECORDS SUMMARY | 2024-08-01 15:19 | XMS_ITS | Encounter Summary ---
Author Organization [facility] Address [facility] [place] [address] Care Team Providers Care Bar And Filler Assembler Name Role Phone Ursula Jacob Primary Care Provider Encounter Details Date Type Department Care Team (Late st Contact Info) Description 11/09/2022 9:30 AM EST Office Visit Radiation Oncology at [address] [phone] Grace Raymond APRN [facility] [place] [address] Malignant neoplasm of prostate (Primary Dx) Social [...] Sign Reading Time Taken Comments Blood Pressure 128/90 11/09/2022 9:38 AM EST Pulse 76 11/09/2022 9:38 AM EST Temperature 36.6 ??C (97.9 ??F) 11/09/2022 9:38 AM ES T Respiratory Rate 18 11/09/2022 9:38 AM EST Oxygen Saturation 98% 11/09/2022 9:38 AM EST Inhaled Oxygen Concentration - - Weight 80.8 kg (178 lb 3.2 oz) 11/09/2022 9:38 A M EST Height 170.2 cm (5' 7) 11/09/2022 9:38 AM EST Body Mass Index 27.91 11/09/2022 9:38 AM EST documented in this encounter Patient Instructions * Patient Instructions* Grace Raymond APRN - 11/09/2022 9:30 AM EST Mr Jean Baptiste, It was so nice to see you today in clinic! You have completed treatment with radiation to treat your prostate cancer. If you received additional treatment with hormone blockade and that treatment is complete, you will need to return to clinicevery 6 months for 5 years past the end of your radiation therapy. For your schedule, we need labs prior to the follow up every 6 months. You should arrange to get this done 10 days prior to your next follow up visit so there is time to get results. These labs allow us to know that your disease remains stable over time. You may be asked to come for labs more frequency if there are changes in yourcondition or increases in the PSA. Please call us in the interval period if there are significant changes in urinary habits or condition. Best RegardsGrace MSN, TELECOM ASSISTANT, MUSIC AUTOGRAPHER-C Nurse Practitioner Radiation Oncology documented in this encounter Progress Notes * Grace Raymond APRN - 11/09/2022 9:30 AM ESTSummary: 72-year-old male diagnosed with high risk prostate cancer in 2019. Plan 36 months ADT. EBRT compl 01/05/20. Images from the original note were not included. [facility] [place] [address] Phone: RADIATION ONCOLOGY FOLLOW UP NOTE Date of visit: 10/26/2022 Patient Rey Jean Baptiste 1950 PCP: Ursula Jacob Urologist:Jean-Claude Woodall MD [facility] (Last seen 6 months ago, goes [...] (22.5 mg)- 02/14/22 Lupron #11 (22.5mg) 05/18/22 Lupron #12 (22.5mg) 08/22/22 Cover to 36 month as total coverage plan. 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 Active [...] in urination. May 2021 Vascular Note: Mr Chris presented [...] with claudication or worsening of sx. Medications 08/22/22 1027 Medication Sig Taking? atorvastatin (Lipitor) 40 mg Tablet Take 1 tablet by mouth every evening. tamsulosin (FLOMAX) 0.4 mg Capsule 0.8 mg nightly. No Known Allergies Past Medical History: Diagnosis Date ??? Lactose intolerance ??? Prostate cancer Past Surgical History: Procedure Laterality Date ??? PROSTATE BIOPSY 07/04/2019 ??? VS ARTERIOGRAM LOWER EXTREMITY VASCULAR SURGERY 04/26/2021 VS Arteriogram Lower Extremity Vascular Surgery 04/26/2021 Tom Mahoney MD [facility] Family History Problem Relation Age of Onset ??? Cancer Maternal Grandfather 80 throat Social History Tobacco Use ??? Smoking status: Never ??? Smokeless tobacco: Never Vaping Use ??? Vaping Use: Never used Substance Use Topics ??? Alcohol use: Yes Comment: occasional beer ??? Drug use: Never Review of Symptoms: I reviewed the IPSS/KELL/Epic-Cp survey results from today 11/09/2022 ??9:31 AM EST - Filed by Patient Urinary function problem Small problem Urinary control Total control # of pads used per day None Urinary dripping/leakage problem No problem 5. How big a problem, if any, has each of the following been for you? Pain or burning with urination No problem Weak urine stream/incomplete bladder emptying Small problem Need to urinate frequently Very small problem, during day ok but up3-4 x. 6. How big a problem, if any, [...] Cancer QOL Score (range: 0 - 60) 7 Q - Prostate Followup Survey Question 11/09/2022 ??9:35 AM EST - Filed by Patient Reason for visit Follow up on existing problem(s) Incomplete emptying Less than 1 time in 5 Frequency Less than 1 time in 5 Intermittency Less than 1 time in 5 Urgency Less than half the time Weak Stream About half the time Straining Not at all Nocturia 4 times Quality of life Mixed - about equally satisfied and dissatisfied Total IPSS Score (range: 0 - 35) 12 (Moderate LUTS) Confidence, level - past 6 [...] in Nov) now 170lb Respiratory:no congestion, cough, wheezing. No resp infections. GI:does have a hemorrhoid which occaiss will [...] months ago and checked after fall in [facility] ED. No further falls or loss of balance. No changes,no neuro focal sx Mood:good , does not have depression. Sleep: noc sweats q noc are the things that waken him and then he gets up to empty bladder. 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 Notices upper body strength less. Exercise: bursar, 20 min 2x day on stationary bike and rowing machine. Smoking:never Alcohol:no, rare Support/ social relationships: and 2 daughters nearby Advanced directives not discussed at this time Financial/transportation concerns:no concerns at this time Going to [place] to visit sister and mother x one week. Performance Status: KPS Score ECOG Grade Definition [...] chair Physical Examination: Body mass index is 27.91 kg/m??. BP 128/90 (Patient Position: Sitting) Pulse 76 Temp 36.6 ??C (97.9 ??F) (Temporal) Resp 18 Ht 170.2 cm (5' 7) Wt 80.8 kg (178 lb 3.2 oz) Constitutional: seen in clinic no distress HENT: normocephalic, anicteric, Cardiovascular: Rate and Rhythm: Normal rate and regular rhythm. No edema Pulmonary: Effort: Pulmonary effort is normal. No cough, congestion or wheezing Genitourinary: Rectum: deferred, undetectable PSA Musculoskeletal: Normal range of motion. General: No swelling or deformity. Comments: Ambulates without assistance Skin: General: Skin is warm and dry. Neurological: General: No focal deficit present. Mental Status: alert and oriented to person, place, and time. Gait: Gait normal. Psychiatric: Mood and Affect: Mood normal. Behavior: Behavior normal. Thought Content: Thought content normal. Judgment: Judgment normal. New Labs Reviewed this visit: Date PSA Test Notes 11/09/22 <0.01 08/15/22 <0.01 7.1 05/12/22 <0.01 <7.0 02/01/21 <0.01 11/07/21 0.01 <7.0 08/16/21 0.01 <7.0 05/09/21 0.01 7.0 02/10/2021 0.01 7.9 11/08/2019 0.01 9.3 08/18/2020 0.01 8.8 05/18/2020 0.01 7.0 01/12/2020 0.02 7.9 06/2019 13.5 06/2018 10.7 11/02/22 WBC 11.01 Hgb 14.4 PLT 232K Calcium 9.0 BUN 19 Creat 0.9 EGFR 90.74 Alk Phos 127 (46-116) AST/ALT Assessment: 72 y.o. presenting for follow up/ lab for prostate cancer. PSA 0.01, no change in sx profile, using flow max .8mg up 3[facility]4x at [facility] but as much because of noc flushing as to urinate. His urinary flow is not flowing, very low pressure. This has dev gradually andnot a problem in the day time. No bone pain,no hematuria. Does have occaiss hemorrhoid with heavy lifting and it will bleed. We discussed role of colo although he has not wanted to have these in past. Discussed checking in with PCP on cologuard testing which he felt more favorably inclined to. Will continue to monitor hemorrhoidal situation. No KARLY today PSA undetectable. Reviewed sx of concern as above. Completed his lupron plan of 36 months coverage at last visit 3 months ago. Discussed that I noted he had a tiny elevated WBC count without any infection, no prednisone use. Plan follow q 6 months ongoing to check on PSA and sx resolution. Explained that as Lupron wears down his own test will return in age appropriate fashion. He may start to regain some energy and improved muscle tone with exercise. He has been pressing himself to stay active. RTC in 6 months with labs 10 days prior He will check with urology today for upcoming appt to check on urinary flow decreases at noc only while on 2 tamsulosin. ? Some scar tissue and need eval with cysto. Medical Decision Making/Recommendations/Plan: # prostate cancer: reviewed [...] Blood in your urine or stool # ADT:completed planned course # survivorship/lifestyle/wellness: Body weight/nutrition: increased wt 15 lbs since Lupron. Exercise:stays busy with work Bone health: No bone Smoking:never Alcohol: rare Annual exam with PCP: [facility] Up to date on vaccinations:Covid vax at [facility] maybe 4 months ago. Booster sched in 2 weeks. Colorectal screening:does not want , Lung cancer screening:n/a # resources provided: AVS given. # referrals done: no # follow up: Per NCCN guidelines, PSA and history/physical every 6-12 months X 5 years, then annually. Annual KARLY (unless PSA undetectable or prostatectomy). PSA may be checked more frequently depending on risk level or other patient specific factors. Next visit:6 months Labs: PSA, testosterone 10 days prior to visit. Rey Jean Baptiste had the opportunity to ask questions and I answered them to the best of my knowledge. Rey Jean Baptiste agreed to contact radiation oncology in between visits if he has any questions/concernsor new symptoms in regards to the radiation therapy/prostate cancer Grace Raymond MSN, TELECOM ASSISTANT, MUSIC AUTOGRAPHER-C Nurse Practitioner Radiation Oncology documented in this encounter Plan of Treatment Upcoming Encounters Date Type Department Care Team (Late st Contact Info) Description 08/07/2024 9:00 AM EST Office Visit Radiation Oncology at [address] [phone] Gloria Baca PA [facility] DR HEMATOLOGY [place] [address] documented as of this encounter Visit Diagnoses Diagnosis Malignant neoplasm of prostate- Primary documented in this encounter Care Teams Bar And Filler Assembler Relationship Specialty Start Date End Date Ursula Jacob [address] [place] [address] PCP - General Family Medicine 03/16/21 documented as of this encounter
--- OUTSIDE RECORDS SUMMARY | 2024-08-01 15:19 | XMS_ITS | Encounter Summary ---
Author Organization [facility] Address [facility] [place] [address] Care Team Providers Care Manager Route Name Role Phone Ursula Jacob Primary Care Provider Encounter Details Date Type Department Care Team (Late Contact Info) Description 08/24/2021 Notes [place] [phone] Grace Raymond APRN [facility] [place] [address] Social History Tobacco Use Types Packs/Day Years [...] AM EST Office Visit Radiation Oncology at [address] [phone] Gloria Baca PA [facility] HEMATOLOGY [place] [address] documented as of this encounter Visit Diagnoses Diagnosis Malignant neoplasm of prostate- Primary documented in this encounter Care Teams Manager Route Relationship Specialty Start Date End Date Ursula Jacob [address] [place], [place] [address] PCP - General Family Medicine 03/16/21 documented as of this encounter
--- OUTSIDE RECORDS SUMMARY | 2024-08-01 15:19 | XMS_ITS | Encounter Summary ---
Author Organization [facility] Address [facility] [place] [address] Care Team Providers Care Second Baker Name Role Phone Ursula Jacob Primary Care Provider Encounter Details Date Type Department Care Team (Latest Contact Info) Description 07/21/2022 Travel Social History Tobacco Use Types Packs/Day [...] EST Office Visit Radiation Oncology at [address] [phone] Gloria Baca PA [facility] DR [place] [address] documented as of this encounter Visit Diagnoses Not on filedocumented in this encounter Care Teams Second Baker Relationship Specialty Start Date End Date Ursula Jacob [address] [place] [address] PCP - General Family Medicine 03/16/21 documented as of this encounter
--- OUTSIDE RECORDS SUMMARY | 2024-08-01 15:19 | XMS_ITS | Encounter Summary ---
Author Organization [facility] Address [facility] [place] [address] Care Team Providers Care Foundation Engineer Name Role Phone JenniziggyconsueloCoby Ursula Primary Care Provider [phone] Reason for Visit * Reason Comments Injections Lupron Encounter Details Date Type Department Care Team (Late Contact Info) Description 02/14/2022 12:00 PM EDT Infusion Hematology Oncology at [address] [phone] Malignant neoplasm of prostate Social History Tobacco [...] as of this encounter Progress Notes * Cara Granados RN - 02/14/2022 12:00 PM [...] EST Office Visit Radiation Oncology at [address] [phone] Gloria Baac PA [facility] [place] [address] documented as of this encounter Visit Diagnoses Diagnosis Malignant neoplasm of prostate documented in this encounter Administered Medications Inactive Administered Medications - up to 3 most recent administrations Medication Order MAR Action Action Date Dose Rate Site leuprolide (Lupron Depot) injection 22.5 mg 22.5 mg, Intramuscular, ONCE, 1 dose, On Sun02/14/22 at 1200, Routine, This agent is restricted to outpatient use. Is this drug being given as an outpatient? Yes Given 02/14/2022 11:44 AM EDT 22.5 mg Left Gluteal documented in this encounter Care Teams Foundation Engineer Relationship Specialty Start Date End Date Ursula Jacob [address] [place] [address] PCP - General Family Medicine 03/16/21 documented as of this encounter
--- OUTSIDE RECORDS SUMMARY | 2024-08-01 15:19 | XMS_ITS | Encounter Summary ---
Author Organization [facility] [place] [address] Care Team Providers Care Manager Commercial Name Role Phone Ursula Jacob Primary Care Provider Reason for Referral * Diagnostic Test (Routine) - Closed Specialty Diagnoses / Procedures Referred By Contac t Referred To Contact Diagnoses Critical lower limb ischemia Procedures Lower extremity vein map, bilat Giselle Houston MD [facility] [place] [address] [facility] Vascular Lab [address] [place] [phone] Referral ID Status Reason Start Date Expiration Date V isits Requested Visits Authorized [id number] Closed Specialty Service Requested 04/26/2021 04/26/2022 1 1 * Diagnostic Test (Routine) - Closed Specialty Diagnoses / Procedures Referred By Contac t Referred To Contact Diagnoses Critical lower limb ischemia Procedures ROXANNE, legs, multiple levels Giselle Houston MD [facility] [place] [address] [facility] Vascular Lab [address] [place] [phone] Referral ID Status Reason Start Date Expiration Date V isits Requested Visits Authorized [id number] Closed Specialty Service Requested 04/26/2021 04/26/2022 1 1 * Diagnostic Test (Routine) - Closed Specialty Diagnoses / Procedures Referred By Contac t Referred To Contact Radiology Diagnoses Critical lower limb ischemia Pre-procedural examination Procedures VS Arteriogram Lower Extremity Vascular Surgery Tom Mahoney MD [facility] [place] [address] [place] [address] Referral ID Status Reason Start Date Expiration Date V isits Requested Visits Authorized [id number] Closed Specialty Service Requested 03/23/2021 09/22/2022 1 1 Reason for Visit * Diagnostic Test (Routine) - Closed Specialty Diagnoses / Procedures Referred By Contac t Referred To Contact Radiology Diagnoses Critical lower limb ischemia Pre-procedural examination Procedures VS Arteriogram Lower Extremity Vascular Surgery Tom Mahoney MD [facility] [place] [address] [place] [address] Referral ID Status Reason Start Date Expiration Date V isits Requested Visits Authorized [id number] Closed Specialty Service Requested 03/23/2021 09/22/2022 1 1 Encounter Details Date Type Department Care Team (Latest Contact Info) Description 04/26/2021 8:07 AM EDT - 04/26/2021 11:59 PM EDT Hospital [place] [address] Tom Mahoney MD [facility] [address] Critical lower limb ischemia (Primary Dx); Pre-procedural examination Discharge Disposition: Home Social History Tobacco Use Types Packs/Day Years [...] 36.2 ??C (97.2 ??F) 04/26/2021 12:04 PM E DT Respiratory Rate 14 04/26/2021 2:00 PM EDT Oxygen Saturation 97% 04/26/2021 2:00 PM EDT Inhaled Oxygen Concentration - - Weight 78.6 kg (173 lb 4.5 oz) 04/26/2021 8:34 A M EDT Height - - Body Mass Index 26.35 03/22/2021 11:23 AM EDT documented in this encounter Discharge Instructions * Discharge Instructions* Chago Fleming RN - 04/26/2021 11:12 AM EDT [facility] Interventional Radiology Post Angiography Instructions Procedure: [...] particularly in the next 24 hours. Stair climbing should be kept to a minimum. Do not [...] tingling and/or pain) of your leg on theside of the puncture call your doctor. 6. You may develop a bruise at the puncture site. This should go away within a week to 10 days. If a bulge develops after the first three days, call [...] call and ask for the Vascular resident senior sales consultant. 10. If you are a diabetic and [...] please contact your M. D. 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 At [...] particularly in the next 24 hours. Stair climbing should be kept to a minimum. Do not [...] tingling and/or pain) of your leg on theside of the puncture call your doctor. 6. You may develop a bruise at the puncture site. This should go away within a week to 10 days. If a bulge develops after the first three days, call [...] call and ask for the vice president pharmacy senior sales consultant. OR Vascular Department at until 4:45pm. After 4:45pm call [phone] and ask for the Vascular resident senior sales consultant. 10. If you are a diabetic and [...] Date End Date tamsulosin (FLOMAX) 0.4 mg Capsule 0.8 mg nightly. 11 07/27/2019 atorvastatin (Lipitor) 40 mg TabletIndications:PAD (peripheral artery disease) Take 1 tablet by mouth every evening. 90 tablet 1 04/11/2021 10/06/2021 ibuprofen (Advil;Motrin) 200 mg Tablet Take 600 mg by mouth every 6 hours as needed. For dysuria and urinary frequency 08/22/2022 documented as of this encounter Progress Notes * Ashlie Garnett RN - 04/26/2021 1:[address] Mahoney at the bedside to discuss the procedure results and prognosis. * Shyanne Rehman RN - 04/26/2021 11:09 AM EDT ANGIO NURSING DATABASE Name: ALONSO BURKS Date of : 1950 AGE: 71 y.o. Address: [address] [place] [id number] (home) Mobile: Telephone Information: Referring Provider: Tom Mahoney REASON FOR VISIT: LLE Angiogram Order Questions Answers Where will study be performed? [facility] Radiology [120] Laterality Left Access Site? R [...] 10 and PSA greater than 20 C61 Date/Procedure [...] 04/13/2020 documented in this encounter H&P Notes * Parth Contreras MD - 04/23/2021 8:38 PM [...] rest pain. He denies tissue loss. He takesa daily ASA, pletal, and statin. Past Medical [...] None Occupational History ??? 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 Smoking status: Never Smoker [...] ? Posterior Tibial (Ankle) Artery ??72 ?0.51 ??[place]-Biphasic ? [place] Toe ?40 ? 0.29 ? [...] Resident documented in this encounter Procedure Notes * Parth Contreras MD - 04/26/2021 12:07 PM [...] confirming the patient, the intended procedure, the sideof intervention and equipment needed. Split doses of [...] was inserted and upsized to a 5 Cuban sheath over a J-wire. A 5F Omni flush catheter was then advanced into the infrarenal aorta over the wire. Diagnostic aortography was performed with the above findings. We then used a stiff glidewire and flush catheter to select the left externaliliac artery. The catheter was advanced, the wire was removed, and diagnostic LLE arteriogram was obtained in stations with the findings above. We then advanced a stiff amplatz wire into the left profunda artery, the catheter was removed, and sheath exchange was performed for a 7Fr 45cm destinationsheath, which was placed in the distal common [...] bifurcation. This was then post-dilated with a [id number] Clyde balloon proximally and a 67m16kg Clyde balloon distally. A completion angiogram was obtained with the findings above. Sheath exchange was then performed for a short 7Fr sheath. A mynx closure device was deployed and manual pressurewas then held for 12 minutes until adequate [...] AM EST Office Visit Radiation Oncology at [address] [phone] Gloria Baca PA [facility] [place] [address] documented as of this encounter Procedures Procedure Name Priority Date/Time Associated Diagnosis Comments VS ARTERIOGRAM LOWER EXTREMITY VASCULAR SURGERY Routine 04/26/2021 12:00 PM EDT Critical lower limb ischemia Pre-procedural examination documented in this encounter Results * Lower extremity vein map, bilat (06/03/2021 10:25 AM EDT) VB Text Report Department: Vascular Surgery Lab Patient: [id number] (ALONSO BURKS) CPT: 51914 ICD10: I70.229;Z01.818 Referring Physician: TOM MAHONEY ?? [...] Tom Mahoney MD VASCULAR ORDERABLES VASCUBASE * ROXANNE, legs, multiple levels (06/03/2021 10:25 AM EDT) VB Text Report Department: Vascular Surgery Lab Patient: [id number] (ALONSO BURKS) CPT: 44885 ICD10: I70.229 Referring Physician: TOM MAHONEY ?? [...] Mahoney MD VASCULAR ORDERABLES Performing Organization Address City/State/[facility] Co de Phone Number VASCUBASE * VS Arteriogram Lower Extremity Vascular Surgery [...] was inserted and upsized to a 5 Cuban sheath over a J-wire. A 5F Omni [...] bifurcation. This was then post-dilated with a [id number] Clyde balloon proximally and a [id number] Clyde balloon distally. A completion angiogram was obtained [...] who have questions please contact the health primary care nurse that requested your imaging first. ? Electronically signed by: Tom Mahoney MD, [facility] ([phone]), at 05/09/2021 10:15 AM Procedure Note Tom [...] Left common iliac artery stent graft placement ([id number]), post-dilated to 10mm distally and 12mm proximally [...] wirewas inserted and upsized to a 5 Cuban sheath over a J-wire. A 5F Omni [...] bifurcation. This was then post-dilated with a [id number] Mustangballoon proximally and a 07s40tr Clyde balloon distally. A completion angiogramwas obtained with [...] patients who have questions please contactthe health primary care nurse that requested your imaging first. Electronically signed by: Tom Mahoney MD, [facility]([phone]), at 05/09/2021 10:15 AM Tom Mahoney MD IM IR ORDERABLES documented in this encounter Visit Diagnoses Diagnosis Critical lower limb ischemia- Primary Unspecified circulatory system disorder Pre-procedural examination Preoperative examination, unspecified documented in this encounter Administered Medications Inactive Administered Medications - up to 3 most recent administrations Medication Order MAR Action Action Date Dose Rate Site ceFAZolin (Ancef) 2 g in dextrose 5% 100 mL infusion 2 g, Intravenous, ONCE, 1 dose, On Sun04/26/21 at 1000, Administer over 30 Minutes, Redose every 3 hours if CrCl is greater than 20. Redose every 8 hours if CrCl is less than 20., Angio/IR (Day of Procedure), Indication for (Active or Suspected): Prophylaxis New Bag 04/26/2021 10:20 AM EDT 2 g 200 mL/hr fentaNYL (pf) (50 mcg/mL) multi-dose injection 25-50 mcg 25-50 mcg, Intravenous, EVERY 3 MIN PRN, Starting on 04/26/21 at 0939, Until 04/26/21 at 1418, Pain, per unit protocol, - [...] verbal order., Angio/IR (Intra-Procedure), Routine Given 04/26/2021 11:15 AM EDT 50 mcg Given 04/26/2021 11:05 AM EDT 25 mcg Given 04/26/2021 10:50 AM EDT 25 mcg heparin (porcine) (1,000 units/mL) injection 1,000-10,000 Units 1,000-10,000 Units, Intravenous, ONCE, 1 dose, On 04/26/21 at 1000, For use in Interventional Radiology (IR) only for procedure with direct provider supervision and verbal order., Angio/IR (Intra-Procedure), Routine Given 04/26/2021 10:52 AM EDT 8,000 Units iodixanoL (Visipaque) (320 mg/mL) injection solution 1-400 mL 1-400 mL, Intravenous, ONCE, 1 dose, On 04/26/21 at 1000, For intra-procedural use by proceduralist., Angio/IR (Intra-Procedure), Routine Given 04/26/2021 11:40 AM EDT 100 mLs lidocaine (Xylocaine) 1% (10 mg/mL) injection 10 mg 10 mg, Subcutaneous, ONCE, 1 dose, On 04/26/21 at 1000, For use in Interventional Radiology (IR) only for procedure with direct provider supervision and verbal order., Angio/IR (Intra-Procedure), Routine Given 04/26/2021 10:28 AM EDT 10 mg midazolam (pf) (Versed) (1 mg/mL) multi-dose injection 0.5-1 mg 0.5-1 mg, Intravenous, EVERY [...] verbal order., Angio/IR (Intra-Procedure), Routine Given 04/26/2021 11:17 AM EDT 0.5 mg Given 04/26/2021 11:05 AM EDT 0.5 mg Given 04/26/2021 10:50 AM EDT 0.5 mg protamine (10 mg/mL) injection 50 mg 50 mg, Intravenous, ONCE, 1 dose, On Sun04/26/21 at 1000, Angio/IR (Intra-Procedure), Routine Given 04/26/2021 11:35 AM EDT 30 mg sodium chloride 0.9 % (flush) (BD PosiFlush Normal Saline 0.9) flush 5 mL 5 mL, Intravenous, 2 TIMES DAILY, First dose on Sun04/26/21 at 1000, Until Discontinued, Routine Given 04/26/2021 10:00 AM EDT 5 mLs documented in this encounter Care Teams Manager Commercial Relationship Specialty Start Date End Date Ursula Jacob [address] [place] [address] PCP - General Family Medicine 03/16/21 documented as of this encounter
--- OUTSIDE RECORDS SUMMARY | 2024-08-01 15:19 | XMS_ITS | Encounter Summary ---
Author Organization [facility] Address [facility] [place] [address] Care Team Providers Care Site Safety Representative Name Role Phone RachelCoby Ursula Primary Care Provider Encounter Details Date Type Department Care Team (Late Contact Info) Description 03/24/2021 Telephone [place] [phone] Beverly Woodard Social History Tobacco Use Types Packs/Day Years [...] encounter Miscellaneous Notes * Telephone Encounter - Beverly Woodard - 03/24/2021 8:41 AM EDT I spoke with Mr. Jean Baptiste - we have scheduled him for his IR procedure with Dr. Mahoney to be on 04/26/21. 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 Letter sent. documented in this encounter Plan of Treatment Upcoming Encounters Date Type Department Care Team (Late st Contact Info) Description 08/07/2024 9:00 AM EST Office Visit Radiation Oncology at [address] [phone] Gloria Baca PA [facility] DR [place] [address] documented as of this encounter Visit Diagnoses Not on filedocumented in this encounter Care Teams Site Safety Representative Relationship Specialty Start Date End Date Ursula Jacob [address] [place] [address] PCP - General Family Medicine 03/16/21 documented as of this encounter
--- OUTSIDE RECORDS SUMMARY | 2024-08-01 15:19 | XMS_ITS | Encounter Summary ---
Author Organization [facility] Address [facility] [place] [address] Care Team Providers Care Snagger Name Role Phone Ursula Jacob Primary Care Provider Reason for Visit * Diagnostic Test (Routine) - Closed Specialty Diagnoses / Procedures Referred By Contdasha t Referred To Contact Radiology Diagnoses PAD (peripheral artery disease) Intermittent claudication Procedures CT Angiogram Aortic Lower Extremity Runoff Luis Barnard MD [facility] [place] [place] [address] [facility] [place] [address] Referral ID Status Reason Start Date Expiration Date V isits Requested Visits Authorized [id number] Closed Specialty Service Requested 10/05/2020 04/04/2022 1 1 Encounter Details Date Type Department Care Team (Latest Contact Info) Description 03/22/2021 10:08 AM EDT - 03/22/2021 11:59 PM EDT Hospital Encounter [place] [phone] Luis Barnard MD [facility] [place] [place] [address] Discharge Disposition: Home Social History Tobacco Use [...] nightly. 11 07/27/2019 atorvastatin (Lipitor) 40 mg Tablet Take 1 tablet by mouth daily. 90 tablet 3 04/13/2020 04/11/2021 ibuprofen (Advil;Motrin) 200 mg Tablet Take 600 mg by mouth every 6 hours as needed. For dysuria and urinary frequency 08/22/2022 documented as of this encounter Plan of Treatment Upcoming Encounters Date Type Department Care Team (Late st Contact Info) Description 08/07/2024 9:00 AM EST Office Visit Radiation Oncology at [address] [phone] Gloria Baca PA [facility] [place] [address] documented as of this encounter Procedures Procedure [...] please contact the health primary care nurse practitioner that requested your imaging first. ? Narrative [...] questions please contactthe health primary care nurse practitioner that requested your imaging first. Luis Barnard MD IMG CT ORDERABLES documented in this encounter Visit Diagnoses Not on filedocumented in this encounter Administered Medications Inactive Administered Medications - up to 3 most recent administrations Medication Order MAR Action Action Date Dose Rate Site iohexoL (Omnipaque) (350 mg/mL) injection solution 0-200 mL 0-200 mL, Intravenous, ONCE PRN, 1 dose, Starting on Sun03/22/21 at 1043, Until Sun03/22/21 at 1044, Per Protocol, Warning Vesicant/Irritant Medication , Radiology Contrast, Routine Given 03/22/2021 10:44 AM EDT 150 mLs documented in this encounter Care Teams Snagger Relationship Specialty Start Date End Date Ursula Jacob [address] [place] [address] PCP - General Family Medicine 03/16/21 documented as of this encounter
--- OUTSIDE RECORDS SUMMARY | 2024-08-01 15:20 | XMS_ITS | Encounter Summary ---
Author Organization [facility] Address [facility] [address] Care Team Providers Care Flight Superintendent Name Role Phone Haja Marshall MD Primary Care Provider [phone] Encounter Details Date Type Department Care Team (Late st Contact Info) Description 12/14/2019 Telephone Radiation Oncology at [address] [phone] Keeley Goodson Social History Tobacco Use Types Packs/Day Years [...] encounter Miscellaneous Notes * Telephone Encounter - Keeley Goodson - 12/14/2019 4:28 PM EDT Called Rey to inform him of the following: As a new precaution with COVID-19 we are calling all patients before they come in for their appointment to screen for any potential symptoms. 1. EXPOSURE: ???Have you been in contact with anyone suspected or confirmed to have COVID-19 in thepast 14 days??? No 2. Do you have [...] EST Office Visit Radiation Oncology at [address] [phone] Gloria Baca PA [facility] DR [place] [address] documented as of this encounter Visit Diagnoses Not on filedocumented in this encounter Care Teams Flight Superintendent Relationship Specialty Start Date End Date Haja Marshall MD [address] [place] [address] [place] [address] PCP - General Radiation Oncology 09/24/19 01/12/20 documented as of this encounter
--- OUTSIDE RECORDS SUMMARY | 2024-08-01 15:20 | XMS_ITS | Encounter Summary ---
Author Organization [facility] [place] [address] Care Team Providers Care Provider Network Analyst Name Role Phone Haja Marshall MD Primary Care Provider [phone] Reason for Referral * Diagnostic Test (Routine) - Closed Specialty Diagnoses / Procedures Referred By Contac t Referred To Contact Radiology Diagnoses Primary malignant neoplasm of prostate with high risk of recurrence due to Lawrence score of 8 to 10 and PSA greater than 20 Procedures MRI Pelvis wo (Prostate) Haja Marshall MD [address] [place] [address] [place] [address] [place] [address] Referral ID Status Reason Start Date Expiration Date V isits Requested Visits Authorized [id number] Closed Specialty Service Requested 09/22/2019 03/23/2021 1 1 Reason for Visit * Diagnostic Test (Routine) - Closed Specialty Diagnoses / Procedures Referred By Contac t Referred To Contact Radiology Diagnoses Primary malignant neoplasm of prostate with high risk of recurrence due to Ramon score of 8 to 10 and PSA greater than 20 Procedures MRI Pelvis wo (Prostate) Haja Marshall MD [address] [place] [address] [place] [address] [place] [address] Referral ID Status Reason Start Date Expiration Date V isits Requested Visits Authorized [id number] Closed Specialty Service Requested 09/22/2019 03/23/2021 1 1 Encounter Details Date Type Department Care Team (Latest Contact Info) Description 10/24/2019 11:52 AM EST - 10/24/2019 11:59 PM EST Hospital [place] [address] Haja Marshall MD [address] [place] [address] [place] [address] Primary malignant neoplasm of prostate with high risk of recurrence due to Ramon score of 8 to 10 and PSA greater than 20 Discharge Disposition: Home Social History Tobacco Use [...] mg Capsule 0.8 mg nightly. 11 07/27/2019 bicalutamide (CASODEX) 50 mg Tablet Take 1 tablet by mouth daily. 30 tablet 6 08/04/2019 02/05/2020 documented as of this encounter Plan of Treatment Upcoming Encounters Date Type Department Care Team (Late st Contact Info) Description 08/07/2024 9:00 AM EST Office Visit Radiation Oncology at [address] [phone] Gloria Baca PA [facility] DR [place] [address] documented as of this encounter Procedures Procedure Name Priority Date/Time Associated Diagnosis Comments MRI PELVIS WO (PROSTATE) Routine 10/24/2019 1:30 PM EST Primary malignant neoplasm of prostate with high risk of recurrence due to Ramon score of 8 to 10 and PSA greater than 20 documented in this encounter Results * MRI Pelvis wo (Prostate) (10/24/2019 1:30 PM EST) Anatomical Region Laterality Modality Pelvis Magnetic Resonan ce Impressions 10/24/2019 1:52 PM EST Radiation treatment planning MRI of the prostate. Thank you for letting us participate in the care of this patient. For questions regarding this report, please contact the number below. ? Narrative 10/24/2019 1:52 PM EST EXAMINATION: MRI PELVIS WO (PROSTATE) CLINICAL HISTORY: prostate cancer s/p fiducial marker and hydrogel placement. MRI for radiation planning, please use volumetric study sequence if possible (e.g. LAWS or [...] in place. T2 hypointense focus in the posterior peripheral zone. No pelvic lymphadenopathy. No osseous metastases identified. Trabeculated bladder johnson with several small diverticula. Procedure Note Rk Urena MD - 10/24/2019 EXAMINATION: MRI PELVIS WO (PROSTATE) CLINICAL HISTORY: prostate cancer s/p fiducial marker and hydrogelplacement. MRI for radiation planning, please use volumetric study sequence ifpossible (e.g. LAWS or the like) TECHNIQUE: MRI of the prostate without contrast. COMPARISON: Correlation made with CT of the abdomen and pelvis 07/25/19 FINDINGS: Several sequences are limited by motion artifact and were repeated. The prostate measures 3.8 x 4.3 x 5.4 cm for calculated volume of 45.9 cc.Space OAR gel noted between the rectum and the prostate. Prostate fiducialmarkers are in place. T2 hypointense focus in the posterior peripheral zone. Nopelvic lymphadenopathy. No osseous metastases identified. Trabeculated bladderwalls with several small diverticula. IMPRESSION Radiation treatment planning MRI of the prostate. Thank you for letting us participate in the care of this patient. Forquestions regarding this report, please contact the number below. Haja Marshall MD IMG MRI ORDERABLES documented in this encounter Visit Diagnoses Diagnosis Primary malignant neoplasm of prostate with high risk of recurrence due to Lawrence score of 8 to 10 and PSA greater than 20 documented in this encounter Care Teams Provider Network Analyst Relationship Specialty Start Date End Date Haja Marshall MD [address] [place] [address] [place] [address] PCP - General Radiation Oncology 09/24/19 01/12/20 documented as of this encounter
--- OUTSIDE RECORDS SUMMARY | 2024-08-01 15:20 | XMS_ITS | Encounter Summary ---
Author Organization [facility] [place] [address] Care Team Providers Care Rotary Envelope Machine Operator Name Role Phone Tylor William Primary Care Provider [phone] Encounter Details Date Type Department Care Team (Late st Contact Info) Description 01/13/2020 Telephone Radiation Oncology at [address] [phone] Clara Hameed, RN Social History Tobacco Use Types Packs/Day [...] encounter Miscellaneous Notes * Telephone Encounter - Clara Hameed RN - 01/13/2020 3:06 PM EDT Radiation Oncology Nurse Telephone Note [facility] [place], [place] Preliminary report of urine culture at [facility] reports,Gram Chhaya mix <10,[address] Marshall informed of this. He asked that pt be informed of this, that he does not have a UTI , does not need an antibiotic and that his dysuria is most likely due to irritation from recent radiation treatments. Telephone call to pt's home. answers stating that he is [place] the barn and that she is aware thathe is waiting for the urine test result. Above information was shared with her. 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 She states he seems more uncomfortable at night when he urinates than during the day. He has been drinking more fluids today and added some cranberry juice too. She was instructed to have him call clinic if his symptom do not improve over time or get worse. She verbalized understanding of this and will have him call clinic back if he has any questions. Plan: appointment with Dr Bell on 02/15/20/ documented in this encounter Plan of Treatment Upcoming Encounters Date Type Department Care Team (Late st Contact Info) Description 08/07/2024 9:00 AM EST Office Visit Radiation Oncology at [address] [phone] Gloria Baca PA [facility] DR HEMATOLOGY AND ONCOLOGY [facility] [place] [address] documented as of this encounter Visit Diagnoses Not on filedocumented in this encounter Care Teams Rotary Envelope Machine Operator Relationship Specialty Start Date End Date Tylor William PA PCP - General General Internal Medicine 01/13/2002/23 documented as of this encounter
--- OUTSIDE RECORDS SUMMARY | 2024-08-01 15:20 | XMS_ITS | Encounter Summary ---
Author Organization [facility] Address [facility] [place] [address] Care Team Providers Care Lift Slab Operator Name Role Phone Haja Marshall MD Primary Care Provider [phone] Encounter Details Date Type Department Care Team (Late st Contact Info) Description 01/05/2020 Notes Only Radiation Oncology at [address] [phone] Sherry Glass RN Social History Tobacco Use Types Packs/Day [...] as of this encounter Progress Notes * Sherry Glass RN - 01/05/2020 2:30 PM EDT Radiation Oncology Nursing Completion of Treatment Note Pt completed 25 Fxs totaling 4500 cGY to pelvis, entire SV and prostate, 38 Fxs totaling 6840 cGy to proximal SV and prostate and 44 Fxs totaling [...] EST Office Visit Radiation Oncology at [address] [phone] Gloria Baca PA [facility] [place] [address] documented as of this encounter Visit Diagnoses Not on filedocumented in this encounter Care Teams Lift Slab Operator Relationship Specialty Start Date End Date Haja Marshall MD [address] [place] [address] [place] [address] PCP - General Radiation Oncology 09/24/19 01/12/20 documented as of this encounter
--- OUTSIDE RECORDS SUMMARY | 2024-08-01 15:20 | XMS_ITS | Encounter Summary ---
Author Organization [facility] Address [facility] [place] [address] Care Team Providers Care Barrel Burner Name Role Phone Haja Marshall MD Primary Care Provider [phone] Encounter Details Date Type Department Care Team (Late st Contact Info) Description 01/04/2020 Telephone Radiation Oncology at [address] [phone] Kwame Rodriguez Social History Tobacco Use Types Packs/Day Years [...] encounter Miscellaneous Notes * Telephone Encounter - Kwame Rodriguez - 01/04/2020 4:35 PM EDT Called Rey to inform him of the following: As a new precaution with COVID-19 we are calling all patients before they come in for their appointment to screen for any potential symptoms. 1. EXPOSURE: ???Have you been in contact with anyone suspected or confirmed to have COVID-19 in thepast 14 days??? Yes/No 2. Do you have [...] AM EST Office Visit Radiation Oncology at [address] [phone] Gloria Baca PA [facility] DR HEMATOLOGY [place] [address] documented as of this encounter Visit Diagnoses Not on filedocumented in this encounter Care Teams Barrel Burner Relationship Specialty Start Date End Date Haja Marshall MD [address] [place] [address] [place] [address] PCP - General Radiation Oncology 09/24/19 01/12/20 documented as of this encounter
--- OUTSIDE RECORDS SUMMARY | 2024-08-01 15:20 | XMS_ITS | Encounter Summary ---
Author Organization [facility] Address [address] [place] [address] Care Team Providers Care Tosser Name Role Phone Unknown, Provider Primary Care Provider Unava ilable Encounter Details Date Type Department Care Team (Late st Contact Info) Description 07/04/2019 Results Only [facility] [phone] Jean-Claude Woodall MD [address] [place] [address] [place] [phone] Social History Tobacco Use Types Packs/Day Years Used Date Smoking Tobacco: Never Assessed Sex and Gender Information Value Date Recorded Sex Assigned at Not on file Gender Identity Not on file Sexual Orientation Not on file documented as of this encounter Plan of Treatment Not on file documented as of this encounter Procedures Procedure Name Priority Date/Time Associated Diagnosis Comments SURGICAL PATHOLOGY Routine 07/04/2019 22 :14 EDT documented in this encounter Results * SURGICAL PATHOLOGY (07/04/2019 22:14 EDT) Pathology Report: SURGICAL PATHOLOGY REPORT Reports generated via electronic interface contain original data; however they are lacking the format of the original report. Caution should be taken when reading/interpretin g unformatted reports. Name: ? ALONSO BURKS ? Accession #: ? [id number] ? : ? 1950 (Age: 69) ??M ? Collect Date: ? 07/04/2019 ? Location: ? [facility] ? Receive Date: ? 07/04/2019 ? Provider: JEAN-CLAUDE WOODALL MD Copy to: [facility] ? Final Pathologic Diagnosis: SUMMARY OF CORES A (right base lat) (1) ? 4+4 ? 10% ? / B (right base med) (1) ? 4+5 (20% 5, >75% 4) ? 75% ? / ? PN C (right mid lat) (1) ? 4+4 ? 5% ? / D (right mid med) (1) ? 4+5 (10% 5, >85% 4) ? 65% ? / ?PN E (right apex lat) (1) ? 4+5 (<5% 5, >75% 4) ? 65% ? / ? PN F (right apex med) (1) ? 4+5 (<5% 5, >95% 4) ? 45% ? / ? PN G (left base lat) (1) ? 3+3 ? 15% ? 1/ H (left base med) (1) ? 4+5 [...] : ? global Ramon score of discontiguous tumor foci) ( : ? global percent tumor involvement of discontiguous tumor foci based on end-to-end tumor length) ( : ? global percent tumor involvement of discontiguous tumor foci based on sum of tumor lengths) Grade Group: ?Group 5 New Prostate Cancer Grading System*: This system was developed based on a study of greater than 20,000 prostate cancer cases treated with radical prostatectomy and greater than 5000 cases treated by radiation therapy. The system was developed to provide a smaller number of grades with the most significant prognostic differences, with Group 1 having the best prognosis and Group 5 the worst prognosis. The highest grade group is reported for each biopsy series on a patient. Grade Group 1 (Rockville score d6) Grade Group 2 (Rockville score 3+4=7) Grade Group 3 (Ramon score 4+3=7) Grade Group 4 (Ramon score 8) Grade Group 5 (Ramon scores 9-10) * Bertha MCKEON et al: A Contemporary Prostate Cancer Grading System: A Validated Alternative to the Rockville Score. Eur Uro 2015 69(3):428-435 A. prostate, right base lateral, biopsy (1): - Prostatic adenocarcinoma (1 tumor focus). ? - Rockville score: ?4 + 4 = 8 ? - Prognostic Grade Group: ?4 ? - Percent involvement: ? 10% of entire prostatic tissue ? - ??Histologic grade: ?- ??Primary Ramon pattern: ? Grade 4 (poorly formed) ?- ??Secondary Ramon pattern: ? Grade 4 ?- ??Total Rockville score: ?8 ? - ??Tumor contiguity: ? Contiguous ? - ??Linear millimeters of prostatic tissue: ? 12.0 mm ? - ??Linear millimeters of carcinoma: ?1.0 mm B. prostate, right base medial, biopsy (1): - Prostatic adenocarcinoma (1 tumor focus). ? - Rockville score: ?4 + 5 = 9 (20% pattern 5, >75% pattern 4, <5% pattern 3) ? - Prognostic Grade Group: ?5 ? - Percent involvement: ? 75% of entire prostatic tissue ? - Perineural invasion: ? Present ? - ??Histologic grade: ?4+5+3 ?- ??Primary Rockville pattern: ? Grade 4 (poorly formed, fused) ?- ??Secondary Rockville pattern: ? Grade 5 (single cells) ?- ??Minor (<5%) Ramon pattern: ?Grade 3 ?- ??Total Ramon score: ?9 (the most and the worst rule for prostate biopsy) ? - ??Tumor contiguity: ? Contiguous ? - ??Linear millimeters of prostatic tissue: ? 17.2 mm ? - ??Linear millimeters of carcinoma: ?12.3 mm C. prostate, right mid lateral, biopsy (1): - Prostatic adenocarcinoma (1 tumor focus). ? - Rockville score: ?4 + 4 = 8 ? - Prognostic Grade Group: ?4 ? - Percent involvement: ? 5% of entire prostatic tissue ? - ??Histologic grade: ?- ??Primary Ramon pattern: ? Grade 4 ?- ??Secondary Ramon pattern: ? Grade 4 ?- ??Total Ramon score: ?8 ? - ??Tumor contiguity: ? Contiguous ? - ??Linear millimeters of prostatic tissue: ? 13.8 mm ? - ??Linear millimeters of carcinoma: ?0.6 mm D. prostate, right mid medial, biopsy (1): - Prostatic adenocarcinoma (1 tumor focus). ? - Rockville score: ?4 + 5 = 9 (10% pattern 5, >85% pattern 4, <5% pattern 3) ? - Prognostic Grade Group: ?5 ? - Percent involvement: ? 65% of entire prostatic tissue ? - Perineural invasion: ? Present ? - ??Histologic grade: ?- ??Primary Rockville pattern: ? Grade 4 (poorly formed) ?- ??Secondary Ramon pattern: ? Grade 5 (single files/cells) ?- ??Minor (<5%) Ramon pattern: ?Grade 3 ?- ??Total Rockville score: ?9 (the most and the worst rule for prostate biopsy) ? - ??Tumor contiguity: ? Contiguous ? - ??Linear millimeters of prostatic tissue: ? 17.2 mm ? - ??Linear millimeters of carcinoma: ?10.6 mm E. prostate, right apex lateral, biopsy (1): - Prostatic adenocarcinoma (1 tumor focus). ? - Rockville score: ?4 + 5 = 9 (<5% pattern 5, >75% pattern 4, 20% pattern 3) ? - Prognostic Grade Group: ?5 ? - Percent involvement: ? 65% of entire prostatic tissue ? - Perineural invasion: ? Present ? - ??Histologic grade: ?4+3+5 ?- ??Primary Rockville pattern: ? Grade 4 (poorly formed) ?- ??Secondary Ramon pattern: ? Grade 3 ?- ??Minor (<5%) Ramon pattern: ?Grade 5 (single files) ?- ??Total Ramon score: ?9 (the most and the worst rule for prostate biopsy) ? - ??Tumor contiguity: ? Contiguous ? - ??Linear millimeters of prostatic tissue: ? 16.3 mm ? - ??Linear millimeters of carcinoma: ?10.3 mm F. prostate, right apex medial, biopsy (1): - Prostatic adenocarcinoma (1 tumor focus). ? - Ramon score: ?4 + 5 = 9 (<5% pattern 5, >95% pattern 4) ? - Prognostic Grade Group: ?5 (total 9-10) ? - Percent involvement: ? 45% of entire prostatic tissue ? - Perineural invasion: ? Present ? - ??Histologic grade: ?4+4+5 ?- ??Primary Rockville pattern: ? Grade 4 (poorly formed) ?- ??Secondary Rockville pattern: ? Grade 4 ?- ??Minor (<5%) Rockville pattern: ?Grade 5 (single files/cells) ?- ??Total Rockville score: ?9 (the most and the worst rule for prostate biopsy) ? - ??Tumor contiguity: ? Contiguous ? - ??Linear millimeters of prostatic tissue: ? 18.0 mm ? - ??Linear millimeters of carcinoma: ?8.2 mm G. prostate, left base lateral, biopsy (1): - Prostatic adenocarcinoma (1 tumor focus). ? - Rockville score: ?3 + 3 = 6 ? - Prognostic Grade Group: ?1 ? - Percent involvement: ? 15% of entire prostatic tissue ? - ??Histologic grade: ?- ??Primary Rockville pattern: ? Grade 3 ?- ??Secondary Ramon pattern: ? Grade 3 ?- ??Total Ramon score: ?6 ? - ??Tumor contiguity: ? Contiguous ? - ??Linear millimeters of prostatic tissue: ? 13.8 mm ? - ??Linear millimeters of carcinoma: ?1.7 mm H. prostate, left base medial, biopsy (1): - Prostatic adenocarcinoma (2 discontiguous tumor foci). ? - Global Ramon score: ? 4 + 5 = 9 (<5% pattern 5, >95% pattern 4) ? - Prognostic Grade Group: ?5 ? - Percent involvement: ? 30% of entire prostatic tissue (based on end-to-end tumor length) ?15% of entire prostatic tissue (based on sum of tumor lenghths) ? - ??Histologic grade: ?4+4+5, 4+4 ?- ??Primary Ramon pattern: ? Grade 4 (poorly formed) ?- ??Secondary Ramon pattern: ? Grade 4 ?- ??Minor (<5%) Ramon pattern: ?Grade 5 (single files/cells) ?- ??Total Rockville score: ?9 (the most and the worst rule for prostate biopsy) ? - ??Tumor contiguity: ? Discontiguous ?(2.5 mm 4+5 (<5% 5) and <0.1 mm 4+4 tumor foci by 1.9 mm non-tumor prostatic tissue) ? - ??Linear millimeters of prostatic tissue: ? 17.0 mm ? - ??Linear millimeters of carcinoma: ?4.5 mm (end-to-end tumor length) [...] ? - Percent involvement: ? 30% of entire prostatic tissue ? - ??Histologic grade: ?- ??Primary Ramon pattern: ? Grade 4 (poorly formed) ?- ??Secondary Ramon pattern: ? Grade 3 ?- ??Total Ramon score: ?7 ? - ??Tumor contiguity: ? Contiguous ? - ??Linear millimeters of prostatic tissue: ? 14.1 mm ? - ??Linear millimeters of carcinoma: ?4.1 mm K. prostate, left apex lateral, biopsy (1): - Prostatic tissue (13.5 mm) is focal atrophy and focal chronic inflammation with eosinophils. L. prostate, left apex medial, biopsy (1): - Prostatic adenocarcinoma (1 tumor focus). ? - Ramon score: ?4 + 4 = 8 ? - Prognostic Grade Group: ?4 ? - Percent involvement: ? 10% of entire prostatic tissue ? - ??Histologic grade: ?- ??Primary Ramon pattern: ? Grade 4 (poorly formed) ?- ??Secondary Rockville pattern: ? Grade 4 ?- ??Total Ramon score: ?8 ? - ??Tumor contiguity: ? Contiguous ? - ??Linear millimeters of prostatic tissue: ? 10.9 mm ? - ??Linear millimeters of carcinoma: ?1.1 mm Comment: Immunohistochemical study was performed on (H: left base medial) to characterize atypical prostatic glands, and the immunoreactivity profile supports the diagnosis. IMMUNOHISTOCHEMISTR Y: ANTIBODY(CLONE)(BLO CK):RESULT keratin 34BE12 (K-9) (34BE12, [place]) (H1): ??Negative in carcinoma P504S (racemase, AMACR) (SP116, [place]) (H1): ??Positive in carcinoma NOTE: ??One or more of the reagents used in immunoperoxidase testing in this case may not have been cleared or approved by the U.S. Food and Drug Administration (FDA). ??The FDA has determined that such clearance or approval is not necessary. ??These tests are used for clinical purposes. ??They should not be regarded as investigational or for research. ??These reagents' performance characteristics have been determined by [facility] and/or by the referring laboratory. ??The positive and negative controls worked appropriately. If immunoperoxidase staining has been performed on alcohol fixed cytology specimens, which has not been fully validated, the assays should be interpreted with caution and correlated with clinical data. ??This laboratory is certified under the Clinical Laboratory Improvement Amendments of 1988 (CLIA-88) as qualified to perform high complexity clinical laboratory testing. Document reviewed and electronically signed by: Christopher Oshea MD Report ??Date: 07/09/2019 18:36 By the signature above, the attending physician certifies that he/she has personally conducted a gross and/or microscopic examination of the described specimens and rendered or confirmed the above diagnosis. Specimen(s) Received: A. ??Rt base lateral B. [...] A. ?Received in formalin labelled with proper patient identification (initials G, M) and right base lateral is a single byrd-white tissue core (1.2 cm in length x 0.1 cm in diameter). Submitted intact in A1. B. ?Received in formalin labelled with proper patient identification (initials G, M) and right base medial is a single byrd-white tissue core (1.8 cm in length x 0.1 cm in diameter). Submitted intact in B1. C. ?Received in formalin labelled with proper patient identification (initials G, ?M) and right mid lateral is a single byrd-white tissue core (1.2 cm in length x 0.1 cm in diameter). Submitted intact in C1. D. ?Received in formalin labelled with proper patient identification (initials G, M) and right mid medial is a single byrd-white tissue core (2.1 cm in length x 0.1 cm in diameter). Submitted intact in D1. E. ?Received in formalin labelled with proper patient identification (initials G, M) and right apex lateral is a single byrd-white tissue core (1.6 cm in length x 0.1 cm in diameter). Submitted intact in E1. F. ?Received in formalin labelled with proper patient identification (initials G, M) and right apex medial is a single byrd-white tissue core (2.2 cm in length x 0.1 cm in diameter). Submitted intact in F1. G. ?Received in formalin labelled with proper patient identification (initials G, M) and left base lateral is a single byrd-white tissue core (1.7 cm in length x 0.1 cm in diameter). Submitted intact in G1. H. ?Received in formalin labelled with proper patient identification (initials G, M) and left base medial is a single byrd-white tissue core (2.3 cm in length x 0.1 cm in diameter). Submitted intact in H1. I. ?Received in formalin labelled with proper patient identification (initials G, M) and left mid lateral is a single byrd-white tissue core (1.1 cm in length x 0.1 cm in diameter). Submitted intact in I1. J. ?Received in formalin labelled with proper patient identification (initials G, M) and left mid medial is a single byrd-white tissue core (2.1 cm in length x 0.1 cm in diameter). Submitted intact in J1. K. ?Received in formalin labelled with proper patient identification (initials G, M) and left apex lateral is a single byrd-white tissue core (1.8 cm in length x 0.1 cm in diameter). Submitted intact in K1. L. ?Received in formalin labelled with proper patient identification (initials G, M) and left apex medial is a single byrd-white tissue core (1.1 cm in length x 0.1 cm in diameter). Submitted intact in L1. Dr. Sanchez 07/05/2019 9:06 AM End of Report [facility] 07/04/2019 22:1 4 EDT 07/04/2019 22:14 EDT Jean-Claude Woodall MD PATHOLOGY ORDERAB LES Performing Organization Address City/State/[facility] Co de Phone Number [facility] [address] [place] [address] documented in this encounter Visit Diagnoses Not on filedocumented in this encounter Care Teams Tosser Relationship Specialty Start Date End Date Unknown, Provider, PCP - General 07/04/19 04/23/23 documented as of this encounter
--- OUTSIDE RECORDS SUMMARY | 2024-08-01 15:20 | XMS_ITS | Encounter Summary ---
Author Organization [facility] [place] [address] Care Team Providers Care Helminthology Teacher Name Role Phone Haja Marshall MD Primary Care Provider [phone] Encounter Details Date Type Department Care Team (Late st Contact Info) Description 01/01/2020 3:00 PM EDT Office Visit Radiation Oncology at [address] [phone] Haja Marshall MD [address] [place] [address] DR RADIATION ONCOLOGY [place] [id number] Malignant neoplasm of prostate Social History Tobacco [...] as of this encounter Progress Notes * Haja Marshall MD - 01/01/2020 3:00 PM EDT Images from the original note were not included. RADIATION ONCOLOGY - Weekly On Treatment Visit Note 01/01/20 Haja Marshall MD, MS Radiation Oncology [facility] [phone] (paging paperboard machine operator) Pager #[phone] PATIENT IDENTIFICATION Name Rey Jean Baptiste Date [...] anticipated. Continue as planned. Lupron next due weekof 02/01/20. LUTS / dysuria: Rec continue flomax 0.8mg qhs, aleve prn for dysuria. Followup: Completes Sunday. RV in January per above. documented in this encounter Plan of Treatment Upcoming Encounters Date Type Department Care Team (Late st Contact Info) Description 08/07/2024 9:00 AM EST Office Visit Radiation Oncology at [address] [phone] Gloria Baac PA [facility] DR [place] [address] documented as of this encounter Visit Diagnoses Diagnosis Malignant neoplasm of prostate documented in this encounter Care Teams Helminthology Teacher Relationship Specialty Start Date End Date Haja Marshall MD [address] [place] [address] DR [place] [address] PCP - General Radiation Oncology 09/24/19 01/12/20 documented as of this encounter
--- OUTSIDE RECORDS SUMMARY | 2024-08-01 15:20 | XMS_ITS | Encounter Summary ---
Author Organization [facility] Address [facility] [place] [address] Care Team Providers Care Dental Equipment Installer And Servicer Name Role Phone Haja Marshall MD Primary Care Provider [phone] Encounter Details Date Type Department Care Team (Late st Contact Info) Description 12/04/2019 4:45 PM EDT Office Visit Radiation Oncology at [address] [phone] Haja Marshall MD [address] [place] [address] DR RADIATION ONCOLOGY [place], [place] [id number] Malignant neoplasm of prostate Social History Tobacco [...] kg (163 lb 9.6 oz) 12/04/2019 4:00 P M EDT Height - - Body Mass Index - - documented in this encounter Progress Notes * Haja Marshall MD - 12/04/2019 4:45 PM EDT Images from the original note were not included. RADIATION ONCOLOGY - Weekly On Treatment Visit Note 12/04/19 Haja Marshall MD, MS Radiation Oncology [facility] [phone] (paging automatic drill operator) Pager #[phone] PATIENT IDENTIFICATION Name Rey Jean Baptiste Date [...] - taking ibuprofen 600qhs every othe rnight. Also taking flomax 0.8mg qhs along with casodex. He has filled Azo but not yet needed it. He does feelas though he is retaining urine. Baseline IPSS history is listed below. Prostate Today's Scores 08/04/2019 09/22/2019 Sexual Health Inventory for Men 17 (Mild ED) 23 International Prostate Symptom Score 16 (Moderate LUTS) 13 (Moderate LUTS) Pain: Pain score today is 0/10. MEDICATIONS Medications 12/04/19 9811 Medication Sig Taking? ibuprofen (Advil;Motrin) 200 mg [...] AM EST Office Visit Radiation Oncology at [address] [phone] Gloria Baca PA [facility] HEMATOLOGY [place] [address] documented as of this encounter Visit Diagnoses Diagnosis Malignant neoplasm of prostate documented in this encounter Care Teams Dental Equipment Installer And Servicer Relationship Specialty Start Date End Date Haja Marshall MD [address] [place] [address] [place] [address] PCP - General Radiation Oncology 09/24/19 01/12/20 documented as of this encounter
--- OUTSIDE RECORDS SUMMARY | 2024-08-01 15:20 | XMS_ITS | Encounter Summary ---
Author Organization [facility] [place] [address] Care Team Providers Care Environment Artist Name Role Phone Tylor William Primary Care Provider [phone] Reason for Visit * Reason Comments Injections Lupron * Treatment/Therapy Plan Authorization (Routine) - Closed Specialty Diagnoses / Procedures Referred By Contac t Referred To Contact Diagnoses Primary malignant neoplasm of prostate with high risk of recurrence due to Rescue score of 8 to 10 and PSA greater than 20 Haja Marshall MD [address] [place] [address] [place] [address] [facility] Rad Onc Office [address] [place] [id number] Referral ID Status Reason Start Date Expiration Date Visits Re quested Visits Authorized [id number] Closed 08/04/2019 08/03/2020 1 1 Encounter Details Date Type Department Care Team (Late st Contact Info) Description 05/28/2020 2:30 PM EDT Infusion Hematology Oncology at [address] [phone] Primary malignant neoplasm of prostate with high risk of recurrence due to Rescue score of 8 to 10 and PSA [...] as of this encounter Progress Notes * Carol Anguiano RN - 05/28/2020 2:30 PM [...] EST Office Visit Radiation Oncology at [address] [phone] Gloria Baca PA [facility] [place] [address] documented as of this encounter Visit Diagnoses Diagnosis Primary malignant neoplasm of prostate with high risk of recurrence due to Rescue score of 8 to 10 and PSA greater than 20 documented in this encounter Administered Medications Inactive Administered Medications - up to 3 most recent administrations Medication Order MAR Action Action Date Dose Rate Site leuprolide (LUPRON DEPOT) injection 22.5 mg 22.5 mg, Intramuscular, ONCE, 1 dose, On Sun05/28/20 at 1600, Routine, This agent is restricted to outpatient use. Is this drug being given as an outpatient? Yes Given 05/28/2020 4:12 PM EDT 22.5 mg Right Gluteal documented in this encounter Care Teams Environment Artist Relationship Specialty Start Date End Date Tylor William PA PCP - General General Internal Medicine 01/13/2002/23 documented as of this encounter
--- OUTSIDE RECORDS SUMMARY | 2024-08-01 15:20 | XMS_ITS | Encounter Summary ---
Author Organization [facility] Address [facility] [place] [address] Care Team Providers Care Associate Professor Of Biblical Studies Name Role Phone Tylor William Primary Care Provider Encounter Details Date Type Department Care Team (Late st Contact Info) Description 08/27/2020 2:30 PM EST Office Visit Radiation Oncology at [address] [phone] Jennifer Manning APRN [facility] DR [place] [address] Malignant neoplasm of prostate Social History Tobacco [...] 36.8 ??C (98.3 ??F) 08/27/2020 2:29 PM ES T Respiratory Rate 20 08/27/2020 2:29 PM EST Oxygen Saturation 99% 08/27/2020 2:29 PM EST Inhaled Oxygen Concentration - - Weight 76.8 kg (169 lb 6.4 oz) 08/27/2020 2:29 P M EST Height 175.3 cm (5' 9) 08/27/2020 2:29 PM EST Body Mass Index 25.02 08/27/2020 2:29 PM EST documented in this encounter Patient Instructions * Patient Instructions* Jennifer Manning APRN - 08/27/2020 2:30 PM EST He will return in 12 weeks with labs prior and lupron documented in this encounter Progress Notes * Jennifer Manning APRN - 08/27/2020 2:30 PM [...] as needed. For dysuria and urinary frequency IMAGING / LABS PSA 06/2018 - [...] continuing with treatment today. He was pleased thathis PSA remains so low. He will re [...] AM EST Office Visit Radiation Oncology at [address] [phone] Gloria Baca PA [facility] DR HEMATOLOGY [place] [address] documented as of this encounter Visit Diagnoses Diagnosis Malignant neoplasm of prostate documented in this encounter Care Teams Associate Professor Of Biblical Studies Relationship Specialty Start Date End Date Tylor William PA PCP - General General Internal Medicine 01/13/2002/23 documented as of this encounter
--- OUTSIDE RECORDS SUMMARY | 2024-08-01 15:20 | XMS_ITS | Encounter Summary ---
Author Organization [facility] Address [facility] [place] [address] Care Team Providers Care Help Desk Associate Name Role Phone Unavailable Primary Care Provider Unavailabl e Encounter Details Date Type Department Care Team (Late st Contact Info) Description 07/30/2019 Telephone [place] [address] Kathy Andrade Social History Tobacco Use Types Packs/Day Years [...] EST Office Visit Radiation Oncology at [address] [phone] Gloria Baca PA [facility] DR [place] [address] documented as of this encounter Visit Diagnoses Not on filedocumented in this encounter
--- OUTSIDE RECORDS SUMMARY | 2024-08-01 15:20 | XMS_ITS | Encounter Summary ---
Author Organization [facility] Address [facility] [place] [address] Care Team Providers Care Hogshead Dumper Name Role Phone Unavailable Primary Care Provider Unavailabl e Encounter Details Date Type Department Care Team (Latest Contact Info) Description 07/31/2019 11:39 AM EST - 07/31/2019 11:59 PM EST Hospital [place] [address] Discharge Disposition: Home Social History Tobacco Use [...] mg Capsule 0.8 mg nightly. 11 07/27/2019 documented as of this encounter Plan of Treatment Upcoming Encounters Date Type Department Care Team (Late st Contact Info) Description 08/07/2024 9:00 AM EST Office Visit Radiation Oncology at [address] [phone] Gloria Baca PA [facility] DR HEMATOLOGY [place] [address] documented as of this encounter Procedures Procedure Name Priority Date/Time Associated Diagnosis Comments SURGICAL PATHOLOGY REPORT Routine 07/31/2019 11:39 AM EST documented in this encounter Results * Surgical Pathology Report (07/31/2019 11:39 AM EST) Final Diagnosis [id number] ? Location: OPW The signing pathologist has (i) examined the relevant preparation(s) for the specimen(s) and (ii) rendered or confirmed the diagnosis(es). . ?Surgical Pathology DIAGNOSIS CONSULTATION CASE Outside slide(s) labeled [id number], collection date 07/04/2019. Prostate needle core biopsies: A) Right base lateral: - Prostatic adenocarcinoma, ?? Grade Group 4 ??(Kulm score 4+4=8), ?involving 10% (1mm) of a single core. B) Right base med: - ??Prostatic adenocarcinoma, ??Grade Group 5 ??(Kulm score 4+5=9), ?involving 80% (13mm) of a single core. - ??Estimated percent Pattern 5: ~20% - ??Perineural invasion is present. C) Right mid lateral: - Prostatic adenocarcinoma, ?? Grade Group 3 ??(Kulm score 4+3=7), ?involving <5% of a single core. D) Right mid med: - Prostatic adenocarcinoma, ?? Grade Group 5 ??(Ramon score 4+5=9), ?involving 65% (10.5mm) of a single core. - Estimated percent Pattern 5: ~10% - ??Perineural invasion is present. E) Right apex lat: - Prostatic adenocarcinoma, ?? Grade Group 5 ??(Kulm score 4+5=9), ?involving 65% (9mm) of a single core. - Estimated percent Pattern 5: ~5% - ??Perineural invasion is present. F) Right apex med: - Prostatic adenocarcinoma, ?? Grade Group 5 ??(Kulm score 4+5=9), ?involving 45% (8mm) of a single core. - Estimated percent Pattern 5: ~15% - ??Perineural invasion is present. G) Left base lat: - Prostatic adenocarcinoma, ?? Grade Group 1 ??(Ramon score 3+3=6), ?involving 10% (1.5mm) of a single core. H) Left base med: - Prostatic adenocarcinoma, ?? Grade Group 5 ??(Ramon score 4+5=9), ?involving 30% (5mm) of a single core. - Estimated percent Pattern 5: ~5% I) Left mid lat: - ??Benign prostatic tissue. J) Left mid med: - Prostatic adenocarcinoma, ?? Grade Group 2 ??(Ramon score 3+4=7), ?involving 25% (3.5mm) of a single core. - Estimated percent Pattern 4: ~40% . DIAGNOSIS K) Left apex lat: - ??Benign prostatic tissue. L) Left apex med: - Prostatic adenocarcinoma, ?? Grade Group 2 ??(Ramon score 3+4=7), ?involving 10% (1.5mm) of a single core. - Estimated percent Pattern 4: ~30% Electronically signed by: ??MD Gerri, Jax Damon Verified: ??08/04/2019 ?Pathologist Performed at: ??-[facility] [place], [place], [place] ADDITIONAL STUDIES Whole slide scan: dealer compliance representative slide(s) CLINICAL INFORMATION Specimen Submitted: CONSULTATION CASE A - 24 slide(s) labeled [id number], collection date 07/04/2019. [id number] Report to: [facility] Surgical Pathology Department [facility], 2nd Floor [address] [place] [address] ??[id number] SPECIMEN PROCESSING [facility] ([facility]) pathology slide(s) are reviewed. ??Refer to Diagnosis and Specimen Submitted for specific case information. For the full text of the [facility] report(s) please refer to Non- Documentation Pathology in the electronic health record (eDH). 08/04/2019 3:03 PM EST [facility] Consult Case 07/31/2019 11:3 9 AM EST 07/31/2019 11:39 AM EST Haja Marshall MD PATHOLOGY/CYTOLOGY [place] [address] documented in this encounter Visit Diagnoses Not on filedocumented in this encounter
--- OUTSIDE RECORDS SUMMARY | 2024-08-01 15:20 | XMS_ITS | Encounter Summary ---
Author Organization [facility] [place] [address] Care Team Providers Care Inspector Watch Assembly Name Role Phone Haja Marshall MD Primary Care Provider [phone] Encounter Details Date Type Department Care Team (Late st Contact Info) Description 11/07/2019 Telephone Radiation Oncology at [address] [phone] Clara Hameed, RN Social History [...] AM EST Radiation Oncology Nurse Telephone Note [facility] [place] [place] Patient calls stating he was up all night trying to void. He went to bed at 10:00, got up about an hour later to void , went back to bed then had to go again 10 mins later and this would happen every10 mins to the point that just barely a trickle was coming out. His called the on-call doctor last night at [facility] and was told that this is not related to the 2 radiation treatments he has received so far for his prostate ca. . He states this has happened in the past before he started on the Flomax. He confirms that he is taking 2 Flomax tabs at night. He states he is voiding better now, however he made an appointment to see his urologist, Dr Woodall at [facility] today at 11:00. Plan : Will keep Dr Marshall informed of his status ( via this note) and nursing will check [facility]'s med record next week to obtain Dr Woodall's note. Patient was also informed that he has an appointment for his next Lupron injection Friday 11/10 after his radiation treatment here. Patient verbalized understanding of these instructions. documented in this encounter Plan of Treatment Upcoming Encounters Date Type Department Care Team (Late st Contact Info) Description 08/07/2024 9:00 AM EST Office Visit Radiation Oncology at [address] [phone] [facility] DR HEMATOLOGY [place] [address] documented as of this encounter Visit Diagnoses Not on filedocumented in this encounter Care Teams Inspector Watch Assembly Relationship Specialty Start Date End Date Haja Marshall MD [address] [place] [address] [place] [address] PCP - General Radiation Oncology 09/24/19 01/12/20 documented as of this encounter
--- OUTSIDE RECORDS SUMMARY | 2024-08-01 15:20 | XMS_ITS | Encounter Summary ---
Author Organization [facility] Address [facility] [place] [address] Care Team Providers Care Parent Educator Name Role Phone Haja Marshall MD Primary Care Provider [phone] Encounter Details Date Type Department Care Team (Late st Contact Info) Description 11/24/2019 Notes Only Radiation Oncology at [address] [phone] Sherry Glass, RN Social History Tobacco Use Types Packs/Day [...] of this encounter Progress Notes * Sherry Glass, RN - 11/24/2019 4:58 PM EST Radiation [...] ibuprofen 600 mg with evening meal per 's note. He was in agreement with this [...] EST Office Visit Radiation Oncology at [address] [phone] Gloria Baca PA [facility] DR HEMATOLOGY AND [facility]COLOGY [facility] [place] [address] documented as of this encounter Visit Diagnoses Not on filedocumented in this encounter Care Teams Parent Educator Relationship Specialty Start Date End Date Haja Marshall MD [address] [place] [address] [place] [address] PCP - General Radiation Oncology 09/24/19 01/12/20 documented as of this encounter
--- OUTSIDE RECORDS SUMMARY | 2024-08-01 15:20 | XMS_ITS | Encounter Summary ---
Author Organization [facility] Address [address] [place] [address] Care Team Providers Care Refractory Bricklayer Name Role Phone Unknown, Provider Primary Care Provider Unava ilable Encounter Details Date Type Department Care Team (Latest Contact Info) Description 07/08/2019 14:55 EDT - 07/08/2019 23:59 EDT Hospital Encounter [address] [address] Unknown, ProviderMD Discharge Disposition: Home or Self Care Social History Tobacco Use Types Packs/Day Years Used Date Smoking Tobacco: Never Assessed Sex and Gender Information Value Date Recorded Sex Assigned at Not on file Gender Identity Not on file Sexual Orientation Not on file documented as of this encounter Discharge Disposition Disposition Code Departure Means Destination Home or Self Alf documented in this encounter Plan of Treatment Not on file documented as of this encounter Visit Diagnoses Not on filedocumented in this encounter Care Teams Refractory Bricklayer Relationship Specialty Start Date End Date Unknown, ProviderMD PCP - General 07/04/19 04/23/23 documented as of this encounter
--- OUTSIDE RECORDS SUMMARY | 2024-08-01 15:20 | XMS_ITS | Encounter Summary ---
Author Organization [facility] [place] [address] Care Team Providers Care Laboratory Scientist Name Role Phone Haja Marshall MD Primary Care Provider [phone] Encounter Details Date Type Department Care Team (Late st Contact Info) Description 11/27/2019 4:30 PM EST Office Visit Radiation Oncology at [address] [phone] Haja Marshall MD [address] [place] [address] RADIATION ONCOLOGY [place], [place] [id number] Malignant neoplasm of prostate Social History Tobacco [...] 36.8 ??C (98.3 ??F) 11/27/2019 4:00 PM ES T Respiratory Rate 16 11/27/2019 4:00 PM EST Oxygen Saturation 100% 11/27/2019 4:00 PM EST Inhaled Oxygen Concentration - - Weight 73.9 kg (163 lb) 11/27/2019 4:00 PM EST Height - - Body Mass Index - - documented in this encounter Progress Notes * Haja Marshall MD - 11/27/2019 4:30 PM EST Images from the original note were not included. RADIATION ONCOLOGY - Weekly On Treatment Visit Note 11/27/19 Haja Marshall MD, MS Radiation Oncology [facility] [phone] (paging air compressor operator) Pager #[phone] PATIENT IDENTIFICATION Name Rey Jean Baptiste Date [...] yet needed it. He does feel as thoughhe is retaining urine. Baseline IPSS history is listed below. Prostate Today's Scores 08/04/2019 09/22/2019 Sexual Health Inventory for Men 17 (Mild ED) 23 International Prostate Symptom Score 16 (Moderate LUTS) 13 (Moderate LUTS) Pain: Pain score today is 0/10. MEDICATIONS Medications 11/27/19 1922 Medication Sig Taking? ibuprofen (Advil;Motrin) 200 mg [...] EST Office Visit Radiation Oncology at [address] [phone] Gloria Baca PA [facility] DR HEMATOLOGY [place] [address] documented as of this encounter Visit Diagnoses Diagnosis Malignant neoplasm of prostate documented in this encounter Care Teams Laboratory Scientist Relationship Specialty Start Date End Date Haja Marshall MD [address] [place] [address] [place] [address] PCP - General Radiation Oncology 09/24/19 01/12/20 documented as of this encounter
--- OUTSIDE RECORDS SUMMARY | 2024-08-01 15:20 | XMS_ITS | Encounter Summary ---
Author Organization [facility] Address [facility] [place] [address] Care Team Providers Care Netbackup Admin Name Role Phone Unavailable Primary Care Provider Unavailabl e Encounter Details Date Type Department Care Team (Late st Contact Info) Description 07/25/2019 12:05 AM EDT Ancillary Procedure Radiology Library at [facility] [place] [address] Haja Marshall MD [address] [place] [address] [place] [address] Social History Tobacco Use Types Packs/Day Years [...] AM EST Office Visit Radiation Oncology at [address] [phone] Gloria Baca PA [facility] DR HEMATOLOGY AND [place] [address] documented as of this encounter Procedures Procedure Name Priority Date/Time Associated Diagnosis Comments FILM LIBRARY STORAGE ONLY CT ABDOMEN AND PELVIS Routine 07/25/2019 12:05 AM EDT documented in this encounter Results * Film Library- Storage Only CT Abdomen & Pelvis (07/25/2019 12:05 AM EDT) Narrative [facility] - 08/07/2019 3:15 PM EST This exam is auto-finalizing. It's purpose is for storage only. Haja Marshall MD IM FILM LIBRARY ORD ERABLES Performing Organization Address City/State/[facility] Co de Phone Number [place], [place] documented in this encounter Visit Diagnoses Not on filedocumented in this encounter
--- OUTSIDE RECORDS SUMMARY | 2024-08-01 15:20 | XMS_ITS | Encounter Summary ---
Author Organization [facility] Address [facility] [place] [address] Care Team Providers Care Windows Deployment Technician Name Role Phone Unavailable Primary Care Provider Unavailabl e Encounter Details Date Type Department Care Team (Late st Contact Info) Description 07/31/2019 External [place] [address] Provider, Scanning Social History Tobacco Use Types Packs/Day Years [...] EST Office Visit Radiation Oncology at [address] [phone] Gloria Baca PA [facility] DR [place] [address] documented as of this encounter Procedures Procedure Name Priority Date/Time Associated Diagnosis Comments SURGICAL PATHOLOGY SCAN Routine 07/31/2019 documented in this encounter Results * Scan Doc: Surgical Pathology (07/31/2019) Haja Marshall MD MEDIA MGR SCAN EXT O RDR/RSLT documented in this encounter Visit Diagnoses Not on filedocumented in this encounter
--- OUTSIDE RECORDS SUMMARY | 2024-08-01 15:20 | XMS_ITS | Encounter Summary ---
Author Organization [facility]ly [facility] Address [facility] [place] [address] Care Team Providers Care Valve Machine Operator Name Role Phone Tylor William Primary Care Provider [phone] Reason for Visit * Reason Comments Leg Pain lle pain foot pain w orse at night and on ambulation * Consultation (Routine) - Specialty Diagnoses / Procedures Referred By Contac t Referred To Contact Vascular Surgery Diagnoses Pain in leg, unspecified Polyneuropathy, unspecified Ursula Jacob [address] [place] [address] [facility] Vascular Surg [address] [place] [address] Referral ID Status Reason Start Date Expiration Date V isits Requested Visits Authorized [id number] Consult, Test & Treat PCP Updated and/or Approved 03/24/2020 03/24/2021 12 12 Encounter Details Date Type Department Care Team (Late st Contact Info) Description 04/13/2020 1:30 PM EDT Office [place] [address] Luis Banrard MD [facility] DR CARDIOLOGY DEPT [place], [place] [id number] PAD (peripheral artery disease); Intermittent claudication; Atherosclerosis of [place] arteries of extremities with intermittent claudication, bilateral legs ; Left foot pain Social History Tobacco Use Types Packs/Day Years [...] Progress Notes * Luis Barnard MD - 04/13/2020 1:30 PM EDT Images from the original note were not included. [facility] [place] [address] CARDIOVASCULAR MEDICINE OUTPATIENT CONSULTATION Rey Jean Baptiste [id number] 04/13/2020 REFERRING PROVIDER: Ursula Jacob CHIEF COMPLAINT: Chief Complaint Patient presents with ??? Leg Pain lle pain foot pain worse at night and on ambulation PROBLEM LIST Patient Active Problem List Diagnosis ??? Primary malignant neoplasm of prostate with high risk of recurrence due to [place] score of 8 to 10 and PSA greater than 20 ??? Malignant neoplasm of prostate HISTORY OF PRESENT ILLNESS: Mr. Jean Baptiste is a very pleasant 70 year old man with history of stage IIIc prostate cancer s/p pelvic radiation and now on neoadjuvant lupron therapy who presents for evaluation of left foot pain and bilateral calf pain. He reports that in the past several months, at rest, he has sharp/stabbing painin his left great toe as well as discomfort in his left foot and ball of his foot. This seems worsewith rest and improves with ambulation. Also with worse with palpitation of foot. He does note thatwith ambulation around 200-250 ft, he has bilateral calf claudication. This is not lifestyle limiting. 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 He has no buttock pain; denies rest pain in calves or night-time awakening. No ulcerations. He has no chest pain or shortness of breath, PND, orthopnea, lower extremity edema, palpitations, pre-syncope or syncope. No history ofCAD or TIA/stroke. Never smoker. He had ABIs [...] peripheral edema noted. No ulcerations noted. Left gill box tender to palpitation. Vessels: No carotid bruits appreciated. Arterial exam (R/L): Femoral 2/0, popliteal 02, DP/0 2/2, PT 0/0, radial 2/2. Neuro: No gross abnormalities noted [...] history of prostate cancer s/p radiation and now receiving Lupron who presents with left toe/foot pain [...] initiate ASA and high intensity statin. Can consider Pletal in future if symptoms worsen. Discussed [...] or concerns. Luis Barnard MD, MPH, RPVI, [facility] Cardiovascular Computer Sciences ProfessorEmployee Development Specialistict [place] [address] documented in this encounter Plan of Treatment Upcoming Encounters Date Type Department Care Team (Late st Contact Info) Description 08/07/2024 9:00 AM EST Office Visit Radiation Oncology at [address] [phone] Gloria Baca PA [facility] DR HEMATOLOGY [place] [address] documented as of this encounter Procedures Procedure Name Priority Date/Time Associated Diagnosis Comments HC VENIPUNCTURE Routine 04/13/2020 1:59 PM EDT Atherosclerosis of [place] arteries of extremities with intermittent claudication, bilateral legs PAD (peripheral artery disease) Intermittent claudication COMPREHENSIVE METABOLIC PANEL Routine 04/13/2020 1:59 PM EDT PAD (peripheral artery disease) Intermittent claudication documented in this encounter Results * Lipid Panel (Reflex Direct LDL) (04/13/2020 1:59 PM EDT) [facility] Cholesterol, Total 193 mg/dL [facility] Comment: Lower Risk: <200 mg/dL Average Risk: 200-239 mg/dL Higher Risk: >se=463 mg/dL Triglyceride 108 mg/dL [facility] Comment: Average Risk/Lower Risk: <150 mg/dL Borderline High Risk: 150-199 mg/dL High Risk: 200-499 mg/dL Very High Risk: >jo=959 mg/dL HDL Cholesterol 42 mg/dL [facility] Comment: Males: ?? Higher Risk: <40 mg/dL Females: ?? HIgher Risk: <50 mg/dL LDL Cholesterol 129 mg/dL [facility] Comment: Lowest Risk: <100 mg/dL Lower Risk: 100-129 mg/dL Borderline High Risk: 130-159 mg/dL High Risk: 160-189 mg/dL Very High Risk: >cj=235 mg/dL Cholesterol/HDL Ratio 4.6 ratio [facility] Lipid Interpretation See Note [facility] Comment: Lipid management should be guided by a patient? s ASCVD risk, goals and preferences. ACC/AHA Guidelines recommend high intensity statin if clinical ASCVD or LDL greater than or equal to 190 mg/dL. http://[employer]/CEL-HWJ-Aioxbdrat Adults aged 40-75 with LDL 70-189 mg/dL should have their 10 year ASCVD risk estimated with the ACC/AHA ASCVD risk construction job cost estimator http://tools.acc.org/HFQFP-Okds-Jaflhsqic/ Statin should be discussed if risk greater than or equal to 7.5% in non-diabetics. With diabetes, moderate intensity statin is recommended if risk less than 7.5%, high intensity if risk greater than or equal to 7.5%. Annual lipid monitoring on statins is not necessary. Evaluate secondary causes of Triglycerides greater than 500 mg/dL or LDL greater than 190 mg/dL: See table 6 of ACC/AHA Guideline. Lifestyle modification is a critical component of ASCVD risk reduction. Blood specimen (specimen) 04/13/2020 1:59 PM EDT 04/13/2020 2:20 PM EDT Narrative Resulting Agency Comment Spec In Lab Luis Barnard MD CHEMISTRY ORDERABLES Performing Organization Address City/State/[facility] Co de Phone Number [facility] [place] [address] * (ABNORMAL) Comprehensive metabolic panel (non-fasting) (04/13/2020 1:59 PM EDT) Glucose 100 65 - 199 mg/dL [facility] Comment:Diabetes: >=200 mg/d L plus symptoms Blood Urea Nitrogen 21(H) 10 - 20 mg/dL [facility] Creatinine 0.91 0.80 - 1.50 mg/dL [facility] Sodium 140 135 - 145 mmol/L [facility] Potassium 5.3(H) 3.5 - 5.0 mmol/L [facility] Comment: Please note: ??Patients with WBC >100,000 may have falsely elevated Potassium levels. ??For accurate Potassium quantification in these patients send serum separator tube (gold top) for subsequent determinations. ??Contact the Clinical Chemistry Laboratory if there are any questions. Chloride 105 98 - 107 mmol/L [facility] Carbon Dioxide 26 22 - 31 mmol/L [facility] Anion Gap 9 5 - 15 mmol/L [facility] Calcium 9.4 8.5 - 10.5 mg/dL [facility] Protein, Total 6.7 6.1 - 8.0 gm/dL [facility] Albumin 4.1 3.2 - 5.2 gm/dL [facility] Aspartate Aminotransferase 15 0 - 39 unit/L [facility] Alanine Aminotransferase 15 0 - 55 unit/L [facility] Alkaline Phosphatase 109 40 - 130 unit/L [facility] Bilirubin, Total 0.5 0.2 - 1.3 mg/dL [facility] Est Glomerular Filtration Rate 85 >=60 mL/min/1. 73 m?? [facility] Comment: The eGFR was calculated using the CKD-EPI equation. As with all creatinine based estimates of kidney function, eGFR values calculated with the CKD-EPI equation are not accurate in patients with acute kidney failure, extremes of body mass or the acutely ill. http://[employer]/[facility] – POTEAUnkf eGFR 99 >=60 mL/min/1. 73 m?? [facility] Comment: The eGFR was calculated using the CKD-EPI equation. As with all creatinine based estimates of kidney function, eGFR values calculated with the CKD-EPI equation are not accurate in patients with acute kidney failure, extremes of body mass or the acutely ill. http://[employer]/DHMCnkf Blood specimen (specimen) 04/13/2020 1:59 PM EDT 04/13/2020 2:20 PM EDT Narrative Resulting Agency Comment Spec In Lab Luis Barnard MD CHEMISTRY ORDERABLES [facility] [place] [address] documented in this encounter Visit Diagnoses Diagnosis PAD (peripheral artery disease) Peripheral vascular disease, unspecified Intermittent claudication Peripheral vascular disease, unspecified Atherosclerosis of [place] arteries of extremities with intermittent claudication, bilateral legs Left foot pain Pain in limb documented in this encounter Care Teams Valve Machine Operator Relationship Specialty Start Date End Date Tylor William PA PCP - General General Internal Medicine 01/13/2002/23 documented as of this encounter
--- OUTSIDE RECORDS SUMMARY | 2024-08-01 15:20 | XMS_ITS | Encounter Summary ---
Author Organization [facility] Address [facility] [place] [address] Care Team Providers Care Bone Grinder Name Role Phone Tylor William Primary Care Provider [phone] Reason for Visit * Reason Comments Injections Lupron Encounter Details Date Type Department Care Team (Late Contact Info) Description 08/27/2020 3:30 PM EST Infusion Hematology Oncology at [address] [phone] Malignant neoplasm of prostate Social History Tobacco [...] Progress Notes * Carol Anguiano RN - 08/27/2020 3:30 PM [...] EST Office Visit Radiation Oncology at [address] [phone] Gloria Baca PA [facility] [place] [address] documented as of this encounter Visit Diagnoses Diagnosis Malignant neoplasm of prostate documented in this encounter Administered Medications Inactive Administered Medications - up to 3 most recent administrations Medication Order MAR Action Action Date Dose Rate Site leuprolide (3 month) (Eligard) subcutaneous injection 22.5 mg 22.5 mg, Subcutaneous, ONCE, 1 dose, On Sun08/27/20 at 1515, Routine Given 08/27/2020 3:13 PM EST 22.5 mg 20-Other (document in comment section) documented in this encounter Care Teams Bone Grinder Relationship Specialty Start Date End Date Tylor William PA PCP - General General Internal Medicine 01/13/20 6/2 11/14 documented as of this encounter
--- OUTSIDE RECORDS SUMMARY | 2024-08-01 15:20 | XMS_ITS | Encounter Summary ---
Author Organization [facility] Address [facility] [place] [address] Care Team Providers Care Dopster Name Role Phone Tylor William Primary Care Provider [phone] Encounter Details Date Type Department Care Team (Late st Contact Info) Description 05/28/2020 1:45 PM EDT Office Visit Radiation Oncology at [address] [phone] Jennifer Manning APRN [facility] [place] [address] Malignant neoplasm of prostate Social History Tobacco [...] 36.4 ??C (97.5 ??F) 05/28/2020 3:46 PM ED T Respiratory Rate 16 05/28/2020 3:46 PM EDT Oxygen Saturation 100% 05/28/2020 3:46 PM EDT Inhaled Oxygen Concentration - - Weight 74.8 kg (165 lb) 05/28/2020 3:46 PM EDT Height 175.3 cm (5' 9) 05/28/2020 3:46 PM EDT Body Mass Index 24.37 05/28/2020 3:46 PM EDT documented in this encounter Patient Instructions * Patient Instructions* Jennifer Manning APRN - 05/28/2020 1:45 PM EDT He will return in 3 months with labs prior and lupron injection. documented in this encounter Progress Notes * Jennifer Manning APRN - 05/28/2020 1:45 PM [...] treatment today. He was pleased thathis PSA was so low. LUTS / dysuria: Rec [...] EST Office Visit Radiation Oncology at [address] [phone] Gloria Baca PA [facility] DR [place] [address] documented as of this encounter Visit Diagnoses Diagnosis Malignant neoplasm of prostate documented in this encounter Care Teams Dopster Relationship Specialty Start Date End Date Tylor William PA PCP - General General Internal Medicine 01/13/20 6/2 11/14 documented as of this encounter
--- OUTSIDE RECORDS SUMMARY | 2024-08-01 15:20 | XMS_ITS | Encounter Summary ---
Author Organization [facility] [place] [address] Care Team Providers Care Circulation Worker Name Role Phone Tylor William Primary Care Provider [phone] Encounter Details Date Type Department Care Team (Late st Contact Info) Description 01/05/2020 4:00 PM EDT Notes Only Radiation Oncology at [address] [phone] Haja Marshall MD [address] [place] [address] DR RADIATION ONCOLOGY [place], [place] [id number] Social History Tobacco Use Types Packs/Day Years [...] Progress Notes * Haja Marshall MD - 01/05/2020 4:00 PM EDT Images from the original note were not included. RADIATION ONCOLOGY - Treatment Completion Summary Haja Marshall MD, MS Radiation Oncology [facility] [phone] (paging kiln transfer operator) Pager #[phone] PATIENT IDENTIFICATION ?? Name Rey Jean Baptiste Date of 1950 ? PCP PEDRO Astudillo Referring MD (if different) Dr. Woodall ? Diagnosis High-Risk [...] Customized powers were designed to encompass the target volume and identify organs at risk and with the intent of minimizing normal tissue toxicity. TREATMENT TOLERANCE: With regard to side effects noted during radiotherapy, the patient tolerated treatment with expected toxicities for this treatment area and dose, including cystitis/prostatitis. This was managed withoral medication and he briefly required use of ISC. TREATMENT RESPONSE: The patient's response to treatment was undetermined, as he was largely asymptomatic at the time ofpresentation. PSA will be monitored as part of ongoing surveillance. FOLLOWUP: Follow-up visit with Radiation Oncology in [facility] is scheduled for 02/05/20 for Lupron and clinical symptom check; he has received instructions to call this office or seek the help ofthe local emergency room if any further problems should arise prior to followup. documented in this encounter Plan of Treatment Upcoming Encounters Date Type Department Care Team (Late st Contact Info) Description 08/07/2024 9:00 AM EST Office Visit Radiation Oncology at [address] [phone] Gloria Baca PA [facility] HEMATOLOGY AND ONCOLOGY [place], [place] [phone] documented as of this encounter Visit Diagnoses Not on filedocumented in this encounter Care Teams Circulation Worker Relationship Specialty Start Date End Date Tylor William PA PCP - General General Internal Medicine 01/13/20 6/11/14 documented as of this encounter
--- OUTSIDE RECORDS SUMMARY | 2024-08-01 15:20 | XMS_ITS | Encounter Summary ---
Author Organization [facility] Address [facility] [place] [address] Care Team Providers Care Dimension Mill Worker Name Role Phone Unavailable Primary Care Provider Unavailabl e Reason for Visit * Consultation (Routine) - Specialty Diagnoses / Procedures Referred By Isatu delgado Referred To Contact Radiation Oncology Diagnoses Malignant neoplasm of prostate Procedures PROSTATE CANCER Jean-Claude Woodall MD [address] [place] [address] Haja Marshall MD [address] [place] [address] [place] [address] Referral ID Status Reason Start Date Expiration Date V isits Requested Visits Authorized [id number] 07/28/2019 07/27/2020 1 1 Encounter Details Date Type Department Care Team (Late st Contact Info) Description 08/04/2019 11:00 AM EST Office Visit Radiation Oncology at [address] [phone] Haja Marshall MD [address] [place] [address] DR RADIATION ONCOLOGY [place], [place] [id number] Primary malignant neoplasm of prostate with high risk of recurrence due to Homeland score of 8 to 10 and PSA [...] EST Temperature 36.4 ??C (97.5 ??F) 08/04/2019 1 1:00 AM EST Respiratory Rate 16 08/04/2019 11:0 0 AM EST Oxygen Saturation 99% 08/04/2019 11: 00 AM EST Inhaled Oxygen Concentration - - Weight 71.6 kg (157 lb 12.8 oz) 019 11:00 AM EST Height - - Body Mass Index - - documented in this encounter Patient Instructions * Patient Instructions* Haja Marshall MD - 08/04/2019 11:00 AM [...] 6 is considered lowest risk, while scores of 8-10 are considered higher risk. 3. How aggressive your prostate cancer felt when Dr. Woodall did the prostate exam (through the rectum). The decision to treat prostate cancer is based on both the risk that the cancer can kill you and your general overall health. I agree with Dr. Woodall's recommendation that this should be treated sincewe would otherwise expect you to live a [...] you to my colleague Dr. Martinez in [place] for a further discussion. However given your urinary symptoms a radioactive implant may have significant toxicity in terms of your urinary function. 3. Fiducial marker and SpaceOAR gel implants: If you decide to choose external beam radiation by itself, the first step will be for you to return to our clinic so that we can place small gold markers(called fiducials) into the prostate, which help us visualize the prostate on a daily basis prior to treating you with radiation. These small gold seeds are about the size of a grain of rice, and we will place one into each side of the prostate. [...] bills that you might receive, to a stack attendant. In most cases, we have been told, the bills are waived and Medicare is ordered to make the payment. These procedures will be performed here in our clinic, and our nursing team will provide you instructions with how to prepare yourself. It takes approximately 2 hours from when you arrive to when youleave the building. 4. Radiation Therapy and Planning: Radiation therapy involves using high energy radiation which kills cancer but also normal healthy tissues. In order to make sure the radiation goes to the canceroustissues and to also avoid radiating the normal [...] in a few ways: First, it allows us to place you in the exact same position [...] of the plan, these processes can take from just few hours to several days, and for [...] so that we can monitor your response totreatment. 5. SIDE EFFECTS - Short Term: We discussed some common temporary side effects that you may experience during radiation. Common side effects may include irritative symptoms of the bladder or prostate,which can result in more frequent urination or defecation. Other common side effects mahy include weakened urinary stream or burning with urination. If you experience any of these, please let us knowso that we can help to treat them. These typically resolve within 4-6 weeks of completion radiation. 6. SIDE EFFECTS - Transfusion Nurse: These can include be permanent damage of [...] side effects. This is typically responsive to medicationslike Viagra. Finally, there is a risk that [...] 2 months before radiation, contiuing for 2 monthsduring radiation and ongoing after radiation is completed). This is usually given as a shot that lasts for 3 months at a time. The reason we recommend this is that the male hormone testosterone is used by prostate cancer as a fuel. By decreasing the body's production of testosterone, we can 'starve' the prostate cancer. The main side effects of hormone therapy include hot flashes, night sweats, weight gain, depressed mood, loss of sexual interest and impotence. There is also a very low risk of heart attack among men who have recently had a heart attack. These side effects usually reverse within 3-6 months of stopping the hormone therapy when testosterone recovers, although it can take up toa full year. During your radiation treatments we would also give you a pill to take once a day called Casodex (bicaluatamide) that blocks the effect of testosterone in the body. You should start taking this on the same day as your first injection of anti- testosterone shot (today, if you like.) 8. Improving your urinary function before starting radiation: Based on the survey you completed forus, your urinary flow does not seem to be very good right now. Radiation can make this worse, to the point that you may need a catheter to urinate. There are a couple of things that might make it better before we start radiation. One option is to start hormonal treatment as described above and waitabout 2-3 months to see if your urination [...] surgery to allow for enough healing so thatwe avoid radiation damage to your urinary tract after surgery. Please do not hesitate to call me at [phone] with any other questions or concerns you have. IfI am not here, one of our radiation oncology nurses can assist you or help you get in touch with me. A Radiation Oncology doctor is also monkey keeper after our normal hours and on weekends for urgent questions or concerns related to radiation treatments that can not wait until normal business hours. To reach the on-call doctor after-hours, just call and have the print color operator page the Radiation Oncologist monkey keeper. And, as always, if you experience any life-threatening emergencies which any include the following,you need to seek emergency care immediately by calling [phone]: 1. Sudden and unexpected breathing difficulty without any exertion 2. Sudden onset of chest pain 3. Sudden onset of severe pain or uncontrolled pain 4. Sudden onset of severe weakness and/or unable to walk 5. Sudden new onset of a seizure 6. Fall resulting in injury 7. Uncontrollable bleeding Haja Howe MD, MS Retail Team Leader of Radiation Oncology [facility] documented in this encounter Progress Notes * Haja Marshall MD - 08/04/2019 11:00 AM EST Images from the original note were not included. Radiation Oncology Prostate Cancer Consult Note Haja Marshall MD, MS [facility] [phone] PATIENT IDENTIFICATION: PATIENT NAME: Rey Jean Baptiste DATE OF : 1950 REFERRING PROVIDER: [place] [address] REASON FOR CONSULTATION : Cancer Staging Malignant [...] conducted with this patient and is otherwise negative except as documented above. Baseline KELL and IPSS are as below: These scores represent symptoms while on Flomax 0.8mg qhs Prostate Scores and Responses 08/04/2019 Confidence, level [...] Capsule nightly. 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 Prostatectomy and surveillance wereboth counseled against, given the volume and high grade nature of prostate cancer. With regard to his radiation options, we reviewed both external beam and brachytherapy. Given that he has unfavorable intermediate risk/high risk disease, brachytherapy is a consideration and would typically be administered as a boost, in addition to a 5 week course of pelvic field radiotherapy andlong term ADT, per ASCENDE-RT (Bipin et al, IJROBP February 2017, Vol98(2), p275). We reviewed that in general treatment efficacy is similar between radiation therapy and surgery, but have varying logistic concerns and side effects. With [...] present we discussed its implications in 2 ways.First, it would argue against a brachytherapy boost out of concern for increased obstructive symptoms. Even without a brachytherapy implant, directly proceeding towards RT may result in need for at least ISC. Mitigation strategies were reviewed today - including ADT and/or TURP prior to starting RT. We discussed a possible referral back to Dr. Woodall for TURP prior to starting RT and it seems thishas already been presented to Rey. We also discussed that after TURP, we would not routinely start radiotherapy for at least 3 if not longer to allow for complete healing and avoid urethral necrosis. In the shelter, I explained there is an approximately 2% chance of serious bladder or rectal toxicity as well as a very low risk of inducing a secondary malignancy. I also reviewed that with radiation there are few reliable salvage curative options. Logistics of [...] prescription for casodex to take for the duration of RT will be sent to his local pharmacy as well. Clinical trials were also reviewed briefly. He is not a candidate for any currently open trials at [facility]. On balance, Rey wishes to proceed with a trial of ADT prior to consideration of TURP. If LUTS haveresolved with ADT we will move toward RT early next year. If LUTS persist I will discuss schedulingof TURP w Dr Woodall. Follow-up appointments will be made accordingly. Informed consent was not obtained today in clinic. (I will defer this until [...] minute visit was spent with the patient [id number] reviewing his interval medical history and answering questions related to his prostate cancer. HAJA MARSHALL MD, MS * Clara Hameed RN - 08/04/2019 11:00 AM [...] if 4 or above SOCIAL ASSESSMENT: See ED social assessment information entered. Support Systems: lives with . She and his daughter accompanied him today Barriers to treatment: Financial concerns. only has medicare. [facility] is assisting him. Referrals/Interventions: workers compensation claims assistant on day per routine. RADIATION SPECIFIC TEACHING:Will provide the following information on day [facility]iation Therapy and You Site specific teaching : Other: PLAN: Per Dr Marshall's note documented in this encounter Plan of Treatment Upcoming Encounters Date Type Department Care Team (Late st Contact Info) Description 08/07/2024 9:00 AM EST Office Visit Radiation Oncology at [address] [phone] Gloria Baca PA [facility] DR [place] [address] documented as of this encounter Visit Diagnoses Diagnosis Primary malignant neoplasm of prostate with high risk of recurrence due to Homeland score of 8 to 10 and PSA greater than 20 documented in this encounter
--- OUTSIDE RECORDS SUMMARY | 2024-08-01 15:20 | XMS_ITS | Encounter Summary ---
Author Organization [facility] Address [facility] [place] [address] Care Team Providers Care Structural Steel Fitter Name Role Phone Unavailable Primary Care Provider Unavailabl e Encounter Details Date Type Department Care Team (Late st Contact Info) Description 07/25/2019 Ancillary Procedure Radiology Library at [facility] [place] [phone] Haja Marshall MD [address] [place] [address] DR [place] [address] Social History Tobacco Use Types Packs/Day Years [...] AM EST Office Visit Radiation Oncology at [address] [phone] Gloria Baca PA [facility] DR HEMATOLOGY [place] [address] documented as of this encounter Procedures Procedure Name Priority Date/Time Associated Diagnosis Comments FILM LIBRARY STORAGE ONLY NUCLEAR MEDICINE Routine 07/25/2019 12:00 AM EDT documented in this encounter Results * Film Library- Storage Only nuclear medicine (07/25/2019 12:00 AM EDT) Narrative [facility] - 08/07/2019 3:13 PM EST This exam is auto-finalizing. It's purpose is for storage only. Haja Marshall MD IM FILM LIBRARY ORD ERABLES Performing Organization Address City/State/[facility] Co de Phone Number [place], [place] documented in this encounter Visit Diagnoses Not on filedocumented in this encounter
--- OUTSIDE RECORDS SUMMARY | 2024-08-01 15:20 | XMS_ITS | Encounter Summary ---
Author Organization [facility] Address [facility] [place] [address] Care Team Providers Care Mail Delivery Supervisor Name Role Phone Unavailable Primary Care Provider Unavailabl e Encounter Details Date Type Department Care Team (Late st Contact Info) Description 07/31/2019 Telephone Radiation Oncology at [address] [phone] Nigel Iraheta Social History Tobacco Use Types Packs/Day Years Used Date Smoking Tobacco: Never Assessed Sex and Gender Information Value Date Recorded Sex Assigned at Not on file Gender Identity Not on file Sexual Orientation Not on file documented as of this encounter Miscellaneous Notes * Telephone Encounter - Nigel Iraheta - 07/31/2019 11:18 AM EST Radiation Oncology New Patient Scheduling Note I called Rey to inform him that Dr. Woodall has referred him to see Dr. Marshall for a radiation new patient consultation. I have confirmed his appointments on Saturday 08/04 will include a 30 minute visit at 10:30 to see our clinic nurse, followed by a [address] Marshall. I confirmed our address and answered all of his questions, and our contact information should any further questions or concerns arise. documented in this encounter Plan of Treatment Upcoming Encounters Date Type Department Care Team (Late st Contact Info) Description 08/07/2024 9:00 AM EST Office Visit Radiation Oncology at [address] [phone] Gloria Baca PA [facility] DR HEMATOLOGY [place] [address] (work) documented as of this encounter Visit Diagnoses Not on filedocumented in this encounter
--- OUTSIDE RECORDS SUMMARY | 2024-08-01 15:20 | XMS_ITS | Encounter Summary ---
Author Organization [facility] Address [facility] [place] [address] Care Team Providers Care Pbx Supervisor Name Role Phone Haja Marshall MD Primary Care Provider [phone] Encounter Details Date Type Department Care Team (Late st Contact Info) Description 10/15/2019 8:30 AM EST Procedure visit Radiation Oncology at [address] [phone] Haja Marshall MD [address] [place] [address] RADIATION ONCOLOGY [place], [place] [id number] Malignant neoplasm of prostate Social History Tobacco [...] this encounter Patient Instructions * Patient Instructions* Clara Hameed RN - 10/15/2019 8:30 AM [...] 3 days. Future Appointments: ? MRI at [facility] : You will receive separate instructions specifically from [facility] concerning your exact arrival time and what you need to do to prepare for this. Date: 10/24 around 12:00 ? Your planning session (simulation) will be done at [facility] the same day of your MRI at the Radiation Oncology Department section 2K [Date: 10/24/19 ] [Time:arrive [...] paged documented in this encounter Progress Notes * Clara Hameed RN - 10/15/2019 8:30 AM [...] He comes to clinic accompanied by a frontload driver. [ yes ] if Applicable: He [...] needed for mild discomfort. He has the [facility] phone number and verbalized understanding to ask for the manager of business operations radiation oncologist if he needs to after clinic hours. [ agrees to drive ] If applicable: He was reminded to not drive home due to Lorazepam. Time of discharge: 10:23 vital signs stable,and gait steady. * Haja Marshall MD - 10/15/2019 8:30 AM [...] an absorbable polyethylene glycol (PEG) hydrogel (SpaceOAR) that was placed into perirectal fat space, thereby pushing [...] SpaceOAR system was then prepared as per therapeutic recreation assistant's recommendations, using sterile technique. Lidocaine was then used to anesthetize SQ tissues and a needle was placed trans- perineally into theright lobe of the prostate under ultrasound guidance with the graticule serving for stabilization and position verification. The ultrasound was used to monitor the advancement of the needle, and lidocaine was locally applied as the needle was advanced towards the apex of the prostate. Once it was properly positioned, two 5mm gold coils ([employer]) were separately placed within the right lobe, and the needle was removed. This procedure was repeated within the left prostate. Prior to SpaceOARneedle insertion, an axial measurement of the space between the prostate (mid gland) and rectum was noted. With the subject maintained in the dorsal lithotomy position, the transrectal ultrasound (TRUS) probe was positioned to enable visual guidance of the needle into the space between the prostate and the rectum. Under transrectal ultrasound guidance, the 15 cm 18G needle was inserted through the rectourethralis muscle and the needle tip advanced into the perirectal fat inferior to the prostate all by using atransperineal approach and with side-fire transrectal ultrasound guidance. The needle position was [...] space between the prostate and rectum (Denonvilliers??? fasciaand the anterior rectal wall). The entire syringe [...] EST Office Visit Radiation Oncology at [address] [phone] Gloria Baca PA [facility] [place] [address] documented as of this encounter Visit Diagnoses Diagnosis Malignant neoplasm of prostate documented in this encounter Care Teams Pbx Supervisor Relationship Specialty Start Date End Date Haja Marshall MD [address] [place] [address] DR [place] [address] PCP - General Radiation Oncology 09/24/19 01/12/20 documented as of this encounter
--- OUTSIDE RECORDS SUMMARY | 2024-08-01 15:20 | XMS_ITS | Encounter Summary ---
Author Organization Count Includes [facility] [address] Care Team Providers Care Fiber Artist Name Role Phone Haja Marshall MD Primary Care Provider Encounter Details Date Type Department Care Team (Late st Contact Info) Description 12/11/2019 4:15 PM EDT Office Visit Radiation Oncology at [address] [phone] Haja Marshall MD [address] [place] [address] DR RADIATION ONCOLOGY [place], [place] [phone] Malignant neoplasm of prostate Social History Tobacco [...] Progress Notes * Haja Marshall MD - 12/11/2019 4:15 PM EDT Images from the original note were not included. RADIATION ONCOLOGY - Weekly On Treatment Visit Note 12/11/19 Haja Marshall MD, MS Radiation Oncology [facility] [phone] (paging direct chill casting operator) Pager #[phone] PATIENT IDENTIFICATION Name Rey Jean Baptiste Date [...] EST Office Visit Radiation Oncology at [address] [phone] Gloria Baca PA [facility] DR [place] [address] documented as of this encounter Visit Diagnoses Diagnosis Malignant neoplasm of prostate documented in this encounter Care Teams Fiber Artist Relationship Specialty Start Date End Date Haja Marshall MD [address] [place] [address] [place] [address] PCP - General Radiation Oncology 09/24/19 01/12/20 documented as of this encounter
--- OUTSIDE RECORDS SUMMARY | 2024-08-01 15:20 | XMS_ITS | Encounter Summary ---
[place] [address] Care Team Providers Care Special Officer Automat Name Role Phone Unavailable Primary Care Provider Unavailabl e Reason for Referral * Consultation (Routine) - Closed Specialty Diagnoses / Procedures Referred By Isatu delgado Referred To Contact Radiation Oncology Diagnoses Primary malignant neoplasm of prostate with high risk of recurrence due to Ramon score of 8 to 10 and PSA greater than 20 Procedures Simulation for Radiation Therapy Planning Haja Marshall MD [address] [place] [address] [place] [address] [facility] Rad Onc Office [address] [place] [phone] Referral ID Status Reason Start Date Expiration Date V isits Requested Visits Authorized [id number] Closed Consult, Test & Treat 09/22/2019 09/21/2020 1 1 * Diagnostic Test (Routine) - Closed Specialty Diagnoses / Procedures Referred By Isatu delgado Referred To Contact Radiology Diagnoses Primary malignant neoplasm of prostate with high risk of recurrence due to Stevens score of 8 to 10 and PSA greater than 20 Procedures MRI Pelvis wo (Prostate) Haja Marshall MD [address] [place] [address] [place] [address] [place] [address] Referral ID Status Reason Start Date Expiration Date V isits Requested Visits Authorized [id number] Closed Specialty Service Requested 09/22/2019 03/23/2021 1 1 Encounter Details Date Type Department Care Team (Late st Contact Info) Description 09/22/2019 11:00 AM EST Office Visit Radiation Oncology at [address] [phone] Haja Marshall MD [address] [place] [address] [place] [address] Primary malignant neoplasm of prostate with high [...] 36.4 ??C (97.5 ??F) 09/22/2019 11:[address] Respiratory Rate 12 09/22/2019 11:00 AM EST Oxygen Saturation 100% 09/22/2019 11:00 AM EST Inhaled Oxygen Concentration - - Weight - - Height - - Body Mass Index - - documented in this encounter Patient Instructions * Patient Instructions* Haja Marshall MD - 09/22/2019 11:00 AM [...] bills that you might receive, to a armature winder helper repair. In most cases, we have been told, the bills are waived and Medicare is ordered to make the payment. These procedures will be performed here in our clinic, and our nursing team will provide you instructions with how to prepare yourself. It takes approximately 2 hours from when you arrive to when youleave the building. 2. Radiation Therapy and Planning: [...] of completion radiation. 4. SIDE EFFECTS - Detention: These can include be permanent damage of the radiated tissues, including the rectum/bowel, bladder, prostate and surrounding tissues. Potential serious injury is rare, but can include poor wound healing, bleeding, or destruction of healthy tissue that may require surgery to repair and may result in a colostomy (bag for defecation) or urostomy (bag for urination). There may be a slow, correction decrease in your sexual function as well, [...] do not hesitate to call me at [phone] with any other questions or concerns you have. IfI am not here, one of our radiation oncology nurses can assist you or help you get in touch with me. A Radiation Oncology doctor is also crisis intervention specialist after our normal hours and on weekends for urgent questions or concerns related to radiation treatments that can not wait until normal business hours. To reach the on-call doctor after-hours, just call and have the production line operator page the Radiation Oncologist crisis intervention specialist. And, as always, if you experience any [...] 7. Uncontrollable bleeding Haja Howe MD, MS Slot Supervisor of Radiation Oncology [facility] documented in this encounter Progress Notes * Haja Marshall MD - 09/22/2019 11:00 AM EST Radiation Oncology Established Patient Followup Note Haja Marshall MD, MS [facility] Patient Identification: Rey Jean Baptiste is a [...] + pelvic / prostatic radiation were reviewed withthe patient today. Afterwards, informed consent for fiducial marker, spaceOAR placement, CT simulation and external beam radiotherapy was obtained. Nursing staff will provide additional teaching with regard to pre and post procedure medications. At least 30 minutes of this 40 minute visit was spent with the patient [id number] reviewing his interval medical history and answering questions related to his prostate cancer. documented in this encounter Plan of Treatment Upcoming Encounters Date Type Department Care Team (Late st Contact Info) Description 08/07/2024 9:00 AM EST Office Visit Radiation Oncology at [address] [phone] Gloria Baca PA [facility] DR [place] [address] Scheduled Orders Name Type Priority Associated Diagnoses Orde r Schedule Simulation for Radiation Therapy Planning Procedures Routine Primary malignant neoplasm of prostate with high risk of recurrence due to Stevens score of 8 to 10 and PSA greater than 20 Ordered: 09/22/2019 documented as of this encounter Results * MRI Pelvis wo (Prostate) (10/24/2019 1:30 PM EST) Anatomical Region Laterality Modality Pelvis Magnetic Resonan ce Impressions 10/24/2019 1:52 PM EST Radiation treatment planning MRI of the prostate. Thank you for letting us participate in the care of this patient. For questions regarding this report, please contact the number below. ? Electronically signed by: CINDA Wakefield [facility] ([phone]), at 10/24/2019 1:52 PM Narrative 10/24/2019 1:52 PM EST EXAMINATION: MRI [...] this report, please contact the number below. Electronically signed by: CINDA Wakefield [facility]([phone]), at 10/24/2019 1:52 PM Haja Marshall MD IMG MRI ORDERABLES documented in this encounter Visit Diagnoses Diagnosis Primary malignant neoplasm of prostate with high risk of recurrence due to Stevens score of 8 to 10 and PSA greater than 20 Primary malignant neoplasm of prostate with high risk of recurrence due to Stevens score of 8 to 10 and PSA greater than 20 documented in this encounter
--- OUTSIDE RECORDS SUMMARY | 2024-08-01 15:20 | XMS_ITS | Encounter Summary ---
Author Organization [place] [address] Care Team Providers Care Hr Systems Analyst Name Role Phone Haja Marshall MD Primary Care Provider [phone] Encounter Details Date Type Department Care Team (Late st Contact Info) Description 01/12/2020 Telephone Radiation Oncology at [address] [phone] Clara Hameed, RN Social History [...] AM EDT Radiation Oncology Nurse Telephone Note [facility] [place], [place] Background: pt completed radiation treatment 01/05/20 [...] informed of this. He will go to [facility] lab today at 0930 for UA and then draft roller picker pyridium. Pharmacist at [facility] states that his insurance will not cover [...] with the final report. He plans to draft roller picker pyridium this evening and start that right away. He was instructed to call clinic if he does develop fever or shaking chill. Patient verbalized understanding of these instructions. documented in this encounter Plan of Treatment Upcoming Encounters Date Type Department Care Team (Late st Contact Info) Description 08/07/2024 9:00 AM EST Office Visit Radiation Oncology at [address] [phone] Gloria Baca PA [facility] DR HEMATOLOGY [place] [address] documented as of this encounter Visit Diagnoses Diagnosis Malignant neoplasm of prostate Dysuria documented in this encounter Care Teams Hr Systems Analyst Relationship Specialty Start Date End Date Haja Marshall MD [address] [place] [address] [place] [address] PCP - General Radiation Oncology 09/24/19 01/12/20 documented as of this encounter
--- OUTSIDE RECORDS SUMMARY | 2024-08-01 15:20 | XMS_ITS | Encounter Summary ---
Author Organization [facility] [place] [address] Care Team Providers Care Spud Sorter Name Role Phone Haja Marshall MD Primary Care Provider [phone] Encounter Details Date Type Department Care Team (Late st Contact Info) Description 11/28/2019 Notes Only Radiation Oncology at [address] [phone] Clara Hameed, RN Social History [...] as of this encounter Progress Notes * Clara Hameed RN - 11/28/2019 4:13 PM EST Radiation Oncology Nurse Telephone Note [place], [place] Radiation therapists report to nursing that they could see on their films that his bladder was veryfull. When he went to empty it some with the urinal, he only urinated about 50 mls. ( nurse was shown the urinal containing clear yellow urine) Dr Marshall informed. He advised that he do self catheterizing every evening before bed and as needed through out the day. Saw patient after he voided in the bathroom. He said that he was able to urinate more in the toilet( more than he did in the urinal). [...] closed, the patient was instructed to call [facility] [phone] and ask for the commercial construction superintendent radiation oncologist or he could also go to local ER. Patient verbalized understanding. Patient verbalized understanding of these instructions. Plan: Weekly on-treatment visit every w/ Dr Marshall and daily visits prn with nursing documented in this encounter Plan of Treatment Upcoming Encounters Date Type Department Care Team (Late st Contact Info) Description 08/07/2024 9:00 AM EST Office Visit Radiation Oncology at [address] [phone] Gloria Baca PA [facility] DR [place] [address] documented as of this encounter Visit Diagnoses Not on filedocumented in this encounter Care Teams Spud Sorter Relationship Specialty Start Date End Date Haja Marshall MD [address] [place] [address] [place] [address] PCP - General Radiation Oncology 09/24/19 01/12/20 documented as of this encounter
--- OUTSIDE RECORDS SUMMARY | 2024-08-01 15:20 | XMS_ITS | Encounter Summary ---
Author Organization [facility] Address [facility] [place] [address] Care Team Providers Care Sorority Supervisor Name Role Phone Tylor William Primary Care Provider [phone] Encounter Details Date Type Department Care Team (Late Contact Info) Description 03/29/2020 Orders [place] [address] Jana Ricks APRN [facility] [place] [address] Pain in both lower extremities Social History Tobacco Use Types Packs/Day Years [...] EST Office Visit Radiation Oncology at [address] [phone] Gloria Baca PA [facility] HEMATOLOGY [place] [address] documented as of this encounter Results * ROXANNE, legs, multiple levels (04/13/2020 12:51 PM EDT) VB Text Report Department: Vascular Surgery Lab Patient: [id number] (KIMMIE, ALONSO) CPT: 26712 ICD10: M79.604;M79.60 5 Referring Physician: JANA RICKS APRN ?? Indications: ??Bilateral claudication. Diabetes mellitus: no ICD10 Diagnosis Code: M79.604, M79.605 Findings: Right ?Pressure (mm Hg) ?? ROXANNE ??Waveform ? Brachial Artery ?137 ? Common Femoral Artery ?Triphasic ?? Popliteal Artery ? Monophasic ?? Dorsalis Pedis (Ankle) Artery ?51 ?0.37 ??Monophasic ?? Posterior Tibial (Ankle) Artery ??66 ?0.48 ??Monophasic ?? Left ? Pressure (mm Hg) ?? ROXANNE ??Waveform ? Brachial Artery ?136 ? Common Femoral Artery ?Monophasic ?? Popliteal Artery ? Monophasic ?? Dorsalis Pedis (Ankle) Artery ?58 ?0.42 ??Monophasic ?? Posterior Tibial (Ankle) Artery ??52 ?0.38 ??Monophasic ?? 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 LEFT: Moderately severe lower extremity arterial occlusive disease. Findings consistent with iliac disease. Comparison: ??No previous study in our vascular lab database for comparison. Electronically Signed by: MARTIN MANLEY on 2020-04-14 07:56:06 AM [facility] VB Text Report End of Report [facility] 04/13/2020 12:5 1 PM EDT Jana Ricks APRN VASCULAR ORDERABLE S Performing Organization Address City/State/[facility] Co de Phone Number [facility] documented in this encounter Visit Diagnoses Diagnosis Pain in both lower extremities documented in this encounter Care Teams Sorority Supervisor Relationship Specialty Start Date End Date Tylor William PA PCP - General General Internal Medicine 01/13/20 611/14 documented as of this encounter
--- OUTSIDE RECORDS SUMMARY | 2024-08-01 15:20 | XMS_ITS | Referral Summary ---
Author Organization [facility] Address [address] [place] [address] Care Team Providers Care Occupational Analyst Name Role Phone Ursula Jacob Primary Care Provider [phone] Social History Tobacco Use Types Packs/Day Years Used Date Smoking Tobacco: Never Assessed Interpersonal Safety Answer Date Record ed Physically Hurt Never 04/26/2020 Verbally Threaten Not on file 04/26/2020 Sex and Gender Information Value Date Recorded Sex Assigned at Not on file Gender Identity Not on file Sexual Orientation Not on file Plan of Treatment Not on file Care Teams Occupational Analyst Relationship Specialty Start Date End Date Ursula Jacob [address] [place] [address] PCP - General 04/24/23
--- OUTSIDE RECORDS SUMMARY | 2024-08-01 15:20 | XMS_ITS | Encounter Summary ---
Author Organization [facility] Address [facility] [place] [address] Care Team Providers Care Master Coastwise Yacht Name Role Phone Unavailable Primary Care Provider Unavailabl e Encounter Details Date Type Department Care Team (Late st Contact Info) Description 08/04/2019 Notes Only Radiation Oncology at [address] [phone] Angelita Deleon MSW OFFICE OF CARE MANAGEMENT Social History Tobacco Use Types Packs/Day Years [...] as of this encounter Progress Notes * Angelita Deleon MSW - 08/04/2019 12:44 PM EST Request to meet with pt. Met with pt, and daughter after new patient visit today. Pt requesting information about applying for financial assistance through as he has Medicare only. Gave pt an NSA application. Asked if he has considered applying for a secondary insurance. Pt working with Ni at [facility] re this. Pt reports he will be back in about 6 weeks to meet with Dr. Marshall and to clarify his treatment plans at that time. Gave pt BOAT BUILDER AND REPAIRER contact information and will be a resource to him as needed. documented in this encounter Plan of Treatment Upcoming Encounters Date Type Department Care Team (Late st Contact Info) Description 08/07/2024 9:00 AM EST Office Visit Radiation Oncology at [address] [phone] Gloria Baca PA [facility] DR HEMAT[place] [address] documented as of this encounter Visit Diagnoses Not on filedocumented in this encounter
--- OUTSIDE RECORDS SUMMARY | 2024-08-01 15:20 | XMS_ITS | Encounter Summary ---
Author Organization Replaced By [facility] Address [facility] [place] [address] Care Team Providers Care Tunnel Elastic Operator Zigzag Name Role Phone Tylor William Primary Care Provider Encounter Details Date Type Department Care Team (Late st Contact Info) Description 02/04/2020 Telephone Radiation Oncology at [address] [phone] Kwame Rodriguez Social History Tobacco Use Types [...] AM EST Office Visit Radiation Oncology at [address] [phone] Gloria Baca PA [facility] DR [place] [address] documented as of this encounter Visit Diagnoses Not on filedocumented in this encounter Care Teams Tunnel Elastic Operator Zigzag Relationship Specialty Start Date End Date Tylor William PA PCP - General General Internal Medicine 01/13/20 6/2 11/14 documented as of this encounter
--- OUTSIDE RECORDS SUMMARY | 2024-08-01 15:20 | XMS_ITS | Encounter Summary ---
Author Organization [facility] [place] [address] Care Team Providers Care Stiff Neck Loader Name Role Phone Haja Marshall MD Primary Care Provider [phone] Encounter Details Date Type Department Care Team (Late st Contact Info) Description 12/18/2019 4:15 PM EDT Office Visit Radiation Oncology at [address] [phone] Haja Marshall MD [address] [place] [address] DR RADIATION ONCOLOGY [place], [place] [id number] Malignant neoplasm of prostate Social History Tobacco [...] Progress Notes * Haja Marshall MD - 12/18/2019 4:15 PM EDT Images from the original note were not included. RADIATION ONCOLOGY - Weekly On Treatment Visit Note 12/18/19 Haja Marshall MD, MS Radiation Oncology [facility] [phone] (paging twisting frame operator) Pager #[phone] PATIENT IDENTIFICATION Name Rey Jean Baptiste Date [...] in the evening hours. Still taking flomax 0.8mg qhs along with [...] chair more than 50% of waking hours -20 4 Completely disabled; cannot carry on any selfcare; totally confined to bed or chair IMPRESSION/PLAN Tolerance to radiotherapy/ADT: Tolerating as anticipated. Continue as planned. Lupron next due weekof 02/01/20. Cramping / RT enteritis: LRD discussed. [...] EST Office Visit Radiation Oncology at [address] [phone] Gloria Baca PA [facility] DR HEMATOLOGY [place] [address] documented as of this encounter Visit Diagnoses Diagnosis Malignant neoplasm of prostate documented in this encounter Care Teams Stiff Neck Loader Relationship Specialty Start Date End Date Haja Marshall MD [address] [place] [address] [place] [address] PCP - General Radiation Oncology 09/24/19 01/12/20 documented as of this encounter
--- OUTSIDE RECORDS SUMMARY | 2024-08-01 15:20 | XMS_ITS | Encounter Summary ---
Author Organization [facility] Address [facility] [place] [address] Care Team Providers Care Physical Therapy Assistant Name Role Phone Tylor William Primary Care Provider Encounter Details Date Type Department Care Team (Late st Contact Info) Description 02/05/2020 11:00 AM EDT Office Visit Radiation Oncology at [address] [phone] Haja Marshall MD [address] [place] [address] DR RADIATION ONCOLOGY [place], [place] [id number] Malignant neoplasm of prostate Social History Tobacco [...] Progress Notes * Haja Marshall MD - 02/05/2020 11:00 AM EDT Images from the original note were not included. RADIATION ONCOLOGY - End of Treatment Visit Note 02/05/20 Haja Marshall MD, MS Radiation Oncology [facility] [phone] (paging chlorine plant operator) Pager #[phone] PATIENT IDENTIFICATION Name Rey Jean Baptiste Date [...] EST Office Visit Radiation Oncology at [address] [phone] Gloria Baca PA [facility] HEMATOLOGY [place] [address] documented as of this encounter Visit Diagnoses Diagnosis Malignant neoplasm of prostate documented in this encounter Care Teams Physical Therapy Assistant Relationship Specialty Start Date End Date Tylor William PA PCP - General General Internal Medicine 01/13/2002/23 documented as of this encounter
--- OUTSIDE RECORDS SUMMARY | 2024-08-01 15:20 | XMS_ITS | Encounter Summary ---
Author Organization [place] [address] Care Team Providers Care Apartment House Manager Name Role Phone Haja Marshall MD Primary Care Provider [phone] Reason for Visit * Reason Comments Injections Lupron * Treatment/Therapy Plan Authorization (Routine) - Closed Specialty Diagnoses / Procedures Referred By Contdasha t Referred To Contact Diagnoses Primary malignant neoplasm of prostate with high risk of recurrence due to [place] score of 8 to 10 and PSA greater than 20 Haja Marshall MD [address] [place] [address] [place] [address] [facility] Rad Onc Office [address] [place] [phone] Referral ID Status Reason Start Date Expiration Date Visits Re quested Visits Authorized [id number] Closed 08/04/2019 08/03/2020 1 1 Encounter Details Date Type Department Care Team (Late st Contact Info) Description 11/10/2019 12:30 PM EST Infusion Hematology Oncology at [address] [phone] Primary malignant neoplasm of prostate [...] Progress Notes * Carol Anguiano RN - 11/10/2019 12:30 PM [...] AM EST Office Visit Radiation Oncology at [address] [phone] Gloria Baca PA [facility] DR HEMATOLOGY [place] [address] documented as of this encounter Visit Diagnoses Diagnosis Primary malignant neoplasm of prostate with high risk of recurrence due to [place] score of 8 to 10 and PSA greater than 20 documented in this encounter Administered Medications Inactive Administered Medications - up to 3 most recent administrations Medication Order MAR Action Action Date Dose Rate Site leuprolide (LUPRON DEPOT) injection 22.5 mg 22.5 mg, Intramuscular, ONCE, 1 dose, On 11/10/19 at 1230, Routine, This agent is restricted to outpatient use. Is this drug being given as an outpatient? Yes Given 11/10/2019 12:40 PM EST 22.5 mg Right Gluteal documented in this encounter Care Teams Apartment House Manager Relationship Specialty Start Date End Date Haja Marshall MD [address] [place] [address] [place] [address] PCP - General Radiation Oncology 09/24/19 01/12/20 documented as of this encounter
--- OUTSIDE RECORDS SUMMARY | 2024-08-01 15:20 | XMS_ITS | Encounter Summary ---
Author Organization [facility] [place] [address] Care Team Providers Care Rotary Veneer Machine Operator Name Role Phone Haja Marshall MD Primary Care Provider [phone] Encounter Details Date Type Department Care Team (Late st Contact Info) Description 11/20/2019 4:00 PM EST Office Visit Radiation Oncology at [address] [phone] Haja Marshall MD [address] [place] [address] DR RADIATION ONCOLOGY [place], [place] [id number] Malignant neoplasm of prostate Social History Tobacco [...] 36.3 ??C (97.3 ??F) 11/20/2019 3:00 PM ES T Respiratory Rate - - Oxygen Saturation 99% 11/20/2019 3:00 PM EST Inhaled Oxygen Concentration - - Weight 73.9 kg (163 lb) 11/20/2019 3:00 PM EST Height - - Body Mass Index - - documented in this encounter Patient Instructions * Patient Instructions* Clara Hameed RN - 11/20/2019 4:00 PM EST [...] is not relieved after 8 tabs. Call: [phone] [facility] ([facility]) weekend/holidays: call [facility] ask for the control and recovery special tactics Radiation Oncologist documented in this encounter Progress Notes * Haja Marshall MD - 11/20/2019 4:00 PM EST Images from the original note were not included. RADIATION ONCOLOGY - Weekly On Treatment Visit Note 11/20/19 Haja Marshall MD, MS Radiation Oncology [facility] [phone] (paging hoisting machine operator) Pager #[phone] PATIENT IDENTIFICATION Name Rey Jean Baptiste Date [...] going about 45mins between urination. Also significant dysuria rated 5/10 at tip of penis, which is [...] score today is 0/10. MEDICATIONS Medications 11/20/19 0155 Medication Sig Taking? phenazopyridine (Pyridium) 200 mg [...] Add ibuprofen 600mg at dinnertime and start pyriduimor Azo. Followup: Return to clinic next week for on treatment check. documented in this encounter Plan of Treatment Upcoming Encounters Date Type Department Care Team (Late st Contact Info) Description 08/07/2024 9:00 AM EST Office Visit Radiation Oncology at [address] [phone] Gloria Baca PA [facility] DR HEMATOLOGY [place] [address] documented as of this encounter Visit Diagnoses Diagnosis Malignant neoplasm of prostate documented in this encounter Care Teams Rotary Veneer Machine Operator Relationship Specialty Start Date End Date Haja Marshall MD [address] [place] [address] [place] [address] PCP - General Radiation Oncology 09/24/19 01/12/20 documented as of this encounter
--- OUTSIDE RECORDS SUMMARY | 2024-08-01 15:20 | XMS_ITS | Encounter Summary ---
Author Organization [facility] Address [facility] [address] Care Team Providers Care Sample Body Builder Name Role Phone Haja Marshall MD Primary Care Provider [phone] Encounter Details Date Type Department Care Team (Late st Contact Info) Description 12/28/2019 Telephone Radiation Oncology at [address] [phone] Keeley Goodson Social History Tobacco [...] * Telephone Encounter - Keeley Goodson - 12/28/2019 [...] EST Office Visit Radiation Oncology at [address] [phone] Gloria Baca PA [facility] DR [place] [address] documented as of this encounter Visit Diagnoses Not on filedocumented in this encounter Care Teams Sample Body Builder Relationship Specialty Start Date End Date Haja Marshall MD [address] [place] [address] [place] [address] PCP - General Radiation Oncology 09/24/19 01/12/20 documented as of this encounter
--- OUTSIDE RECORDS SUMMARY | 2024-08-01 15:20 | XMS_ITS | Encounter Summary ---
Author Organization [facility] Address [address] [place] [address] Care Team Providers Care Meter Readers Supervisor Name Role Phone Unknown, Provider Primary Care Provider Ursula Hayden Primary Care Provider [phone] Encounter Details Date Type Department Care Team (Late st Contact Info) Description 03/04/2020 Lab Requisition [facility] Pathology & Laboratory Medicine - [address] [address] Outr Resulting Lab, Provider Social History Tobacco Use Types Packs/Day Years Used Date Smoking Tobacco: Never Assessed Sex and Gender Information Value Date Recorded Sex Assigned at Not on file Gender Identity Not on file Sexual Orientation Not on file documented as of this encounter Plan of Treatment Not on file documented as of this encounter Procedures Procedure Name Priority Date/Time Associated Diagnosis Comments LYME AB Routine 03/03/2020 9:50 EDT documented in this encounter Results * LYME AB (03/03/2020 9:50 EDT) Lyme Ab Negative Negative 03/05/2020 10:08 EDT [facility] Comment: New 3rd generation assay in use date 03/03/2020 Blood VENOUS BLOOD / Unknown 03/03/2020 9:50 EDT 03/04/2020 16:57 EDT Provider Outr Resulting Lab IMMUNOLOGY A ND SEROLOGY ORDERABLES [facility] [address] [place] [address] documented in this encounter Visit Diagnoses Not on filedocumented in this encounter Care Teams Meter Readers Supervisor Relationship Specialty Start Date End Date Unknown, Provider, PCP - General 07/04/19 04/23/23 Ursula Jacob [address] [place] [address] PCP - General 04/24/23 documented as of this encounter
--- OUTSIDE RECORDS SUMMARY | 2024-08-01 15:20 | XMS_ITS | Encounter Summary ---
Author Organization [facility] [place] [address] Care Team Providers Care Stonecutter Hand Name Role Phone Haja Marshall MD Primary Care Provider [phone] Encounter Details Date Type Department Care Team (Late st Contact Info) Description 10/16/2019 Telephone Radiation Oncology at [address] [phone] Clara Hameed, RN Social History [...] AM EST Radiation Oncology Nurse Telephone Note [facility] [place], [place] Radiation Oncology Post-Procedure Phone Note Name: Rey Jean Baptiste A#: [id number] : 1950 Date/Time of Call: 10/16/19 Procedure: [...] YES NO x Comments/interventions: Section Radiation Oncology [facility] documented in this encounter Plan of Treatment Upcoming Encounters Date Type Department Care Team (Late st Contact Info) Description 08/07/2024 9:00 AM EST Office Visit Radiation Oncology at [address] [phone] Gloria Baca PA [facility] DR HEMATOLOGY [place] [address] documented as of this encounter Visit Diagnoses Not on filedocumented in this encounter Care Teams Stonecutter Hand Relationship Specialty Start Date End Date Haja Marshall MD [address] [place] [address] DR RADIATION ONCOLOGY [place], [place] [address] PCP - General Radiation Oncology 09/24/19 01/12/20 documented as of this encounter
--- OUTSIDE RECORDS SUMMARY | 2024-08-01 15:20 | XMS_ITS | Encounter Summary ---
Author Organization [facility] [place] [address] Care Team Providers Care Lace Roller Name Role Phone Haja Marshall MD Primary Care Provider [phone] Encounter Details Date Type Department Care Team (Late st Contact Info) Description 12/22/2019 Telephone Radiation Oncology at [address] [phone] Social History Tobacco Use Types Packs/Day Years [...] encounter Miscellaneous Notes * Telephone Encounter - Dilcia Briggs RD - 12/22/2019 10:31 AM EDT [facility] Initial Dietitian Assessment - Phone Call Seen By: Dilcia Briggs RD LD Referred by: Dr. Marshall Reason for visit: abdominal cramping, discuss low residue diet Patient and diagnosis: Rey Jean Baptiste is a 69 y.o. male??with high-risk prostate cancer undergoing definitive radiotherapy. HPI: Patient Active Problem List Diagnosis Code ??? Malignant neoplasm of prostate C61 ??? Primary malignant neoplasm of prostate with high risk of recurrence due to [place] score of 8 to 10 and PSA greater than 20 C61 Meds: reviewed There is no height or weight on file to calculate BMI. Wt Readings from Last 3 Encounters: 12/04/19 74.2 kg (163 lb 9.6 oz) 11/27/19 73.9 kg (163 lb) 11/20/19 73.9 kg (163 lb) denies weight loss Nutrition Assessment: Food Intake: Am: minimal breakfast Noon: sandwich Pm: varies, makes, meat and potatoes or noodles Fluids: one cup of coffee in AM, takes in to-go cup; plain water throughout the day Teas, vitamins, or other nutritional supplements: n/a Food allergies or avoidances: n/a Appetite: good, denies changes Bowels: denies constipation or diarrhea Anticipated adherence/understanding: good Nutrition Diagnosis: Patient reports occasional cramping 2/2 radiation therapy for prostate cancer. Noted symptoms last week, but states cramping improved over past 4-5 days. Patient has reduced fiber in diet, helped to look up which foods are higher in fiber. He feels he has good understanding at this point of which foods to avoid. Denies changes in bowel habits. Appetite and portion sizes have not changed per report. Further discussed/reviewed low residue diet/ recommendations to help reduce bloating/cramping. Nutrition Intervention: ? Modify diet consistency: low residue diet ? Discussed additional tips to help reduce bloating, including smaller more frequent meals, avoiding carbonated beverages, and limiting caffeine intake especially on empty stomach ? Encouraged adequate hydration Monitoring and Evaluation: Will follow up as needed. Encouraged patient to reach out if symptoms return/increase or if questions arise. documented in this encounter Plan of Treatment Upcoming Encounters Date Type Department Care Team (Late st Contact Info) Description 08/07/2024 9:00 AM EST Office Visit Radiation Oncology at [address] [phone] Gloria Baca PA [facility] DR HEMATOLOGY [place] [address] documented as of this encounter Visit Diagnoses Not on filedocumented in this encounter Care Teams Lace Roller Relationship Specialty Start Date End Date Haja Marshall MD [address] [place] [address] [place] [address] PCP - General Radiation Oncology 09/24/19 01/12/20 documented as of this encounter
--- OUTSIDE RECORDS SUMMARY | 2024-08-01 15:20 | XMS_ITS | Encounter Summary ---
Author Organization [facility] [place] [address] Care Team Providers Care Electronic Scale Assembler And Tester Name Role Phone Tylor William Primary Care Provider [phone] Reason for Visit * Reason Comments Injections Lupron * Treatment/Therapy Plan Authorization (Routine) - Closed Specialty Diagnoses / Procedures Referred By Contac t Referred To Contact Diagnoses Primary malignant neoplasm of prostate with high risk of recurrence due to [place] score of 8 to 10 and PSA greater than 20 Haja Marshall MD [address] [place] [address] DR [place] [address] [facility] Rad Onc Office [address] [place] [phone] Referral ID Status Reason Start Date Expiration Date Visits Re quested Visits Authorized [id number] Closed 08/04/2019 08/03/2020 1 1 Encounter Details Date Type Department Care Team (Late st Contact Info) Description 02/05/2020 11:30 AM EDT Infusion Hematology Oncology at [address] [phone] Primary malignant neoplasm of prostate with high risk of recurrence due to [place] score of 8 to 10 and PSA [...] Progress Notes * Carol Anguiano RN - 02/05/2020 11:30 AM [...] EST Office Visit Radiation Oncology at [address] [phone] Gloria Baca PA [facility] DR HEMATOLOGY [place] [address] documented as of this encounter Visit Diagnoses [...] 1 dose, On Nidhi 02/05/20 at 1230, Routine, This agent is restricted to outpatient use. Is this drug being given as an outpatient? Yes Given 02/05/2020 12:17 PM EDT 22.5 mg Left Gluteal documented in this encounter Care Teams Electronic Scale Assembler And Tester Relationship Specialty Start Date End Date Tylor William PA PCP - General General Internal Medicine 01/13/20 6/2 11/14 documented as of this encounter
--- OUTSIDE RECORDS SUMMARY | 2024-08-01 15:20 | XMS_ITS | Encounter Summary ---
Author Organization [facility] [place] [address] Care Team Providers Care Director Industrial Name Role Phone Haja Marshall MD Primary Care Provider [phone] Encounter Details Date Type Department Care Team (Latest Contact Info) Description 10/08/2019 Unscheduled Encounter Radiation Oncology at [address] [phone] Clara Hameed, RN Primary malignant neoplasm of prostate with high [...] Progress Notes * Clara Hameed RN - 10/08/2019 4:37 PM EST Patient information for gold coil prostate placement Individual involved with teaching: in person 10/08/19 15:00 - 15:40 Patient [ x ] spouse [ x ] Other [ daughter ] Procedure Date:10/15/19 Arrival Time:0800 Time of Procedure: ~0830 Location: [facility] Why gold coils? You and your doctor [...] that temporarily moves the rectum 1/2 away fromthe high dose radiation area protecting the rectum. [...] gingko biloba, Coumadin, Lovenox, etc. Please ask ifyou are not sure about any of your medications. For you this means stop taking [ N/A ] Prescriptions to get filled: at [facility] [place] [facility] Prescription for steroid: to prevent swelling at [...] 3 days, then 1 pill once a dayfor 3 days. ?? Take antibiotic levofloxacin 1 [...] other concerns. Future Appointments: ?? MRI at [facility] : You will receive separate instructions specifically from [facility] concerning your exact arrival time and what you need to do to prepare for this. Date: 10/24 around 12:00 ?? Your planning session (simulation) will be done at [facility] the same day of your MRI at [...] restrictions with eating. How to reach us: [facility] [phone] For weekends and after hours: Call [facility] ask for the medical receptionist biller radiation oncologist documented in this encounter Plan of Treatment Upcoming Encounters Date Type Department Care Team (Late st Contact Info) Description 08/07/2024 9:00 AM EST Office Visit Radiation Oncology at [address] [phone] Gloria Baca PA [facility] [place] [address] documented as of this encounter Visit Diagnoses Diagnosis Primary malignant neoplasm of prostate with high risk of recurrence due to [place] score of 8 to 10 and PSA greater than 20 documented in this encounter Care Teams Director Industrial Relationship Specialty Start Date End Date Haja Marshall MD [address] [place] [address] [place] [address] PCP - General Radiation Oncology 09/24/19 01/12/20 documented as of this encounter
--- OUTSIDE RECORDS SUMMARY | 2024-08-01 15:20 | XMS_ITS | Encounter Summary ---
Author Organization [facility] [place] [address] Care Team Providers Care Pollution Control Chemist Name Role Phone Haja Marshall MD Primary Care Provider [phone] Encounter Details Date Type Department Care Team (Late st Contact Info) Description 11/13/2019 4:00 PM EST Office Visit Radiation Oncology at [address] [phone] Haja Marshall MD [address] [place] [address] RADIATION ONCOLOGY [place], [place] [id number] Malignant neoplasm of prostate Social History Tobacco [...] Progress Notes * Haja Marshall MD - 11/13/2019 4:00 PM EST Images from the original note were not included. RADIATION ONCOLOGY - Weekly On Treatment Visit Note 11/13/19 Haja Marshall MD, MS Radiation Oncology [facility] [phone] (paging coagulation operator) Pager #[phone] PATIENT IDENTIFICATION Name Rey Jean Baptiste Date [...] score today is 0/10. MEDICATIONS Medications 11/13/19 3887 Medication Sig Taking? tamsulosin (FLOMAX) 0.4 mg [...] anticipated. Continue as planned. Next Lupron due thisweek or next. Followup: Return to clinic next week for on treatment check. documented in this encounter Plan of Treatment Upcoming Encounters Date Type Department Care Team (Late st Contact Info) Description 08/07/2024 9:00 AM EST Office Visit Radiation Oncology at [address] [phone] Gloria Baca PA [facility] DR HEMATOLOGY [place] [address] documented as of this encounter Visit Diagnoses Diagnosis Malignant neoplasm of prostate documented in this encounter Care Teams Pollution Control Chemist Relationship Specialty Start Date End Date Haja Marshall MD [address] [place] [address] [place] [address] PCP - General Radiation Oncology 09/24/19 01/12/20 documented as of this encounter
--- OUTSIDE RECORDS SUMMARY | 2024-08-01 15:20 | XMS_ITS | Encounter Summary ---
Author Organization [facility] [place] [address] Care Team Providers Care Intelligence Research Specialist Name Role Phone Haja Marshall MD Primary Care Provider [phone] Encounter Details Date Type Department Care Team (Late st Contact Info) Description 11/06/2019 3:30 PM EST Office Visit Radiation Oncology at [address] [phone] Haja Marshall MD [address] [place] [address] RADIATION ONCOLOGY [place], [place] [id number] Malignant neoplasm of prostate Social History Tobacco [...] 36.4 ??C (97.5 ??F) 11/06/2019 3:00 PM ES T Respiratory Rate 16 11/06/2019 3:00 PM EST Oxygen Saturation 100% 11/06/2019 3:00 PM EST Inhaled Oxygen Concentration - - Weight 74.4 kg (164 lb) 11/06/2019 3:00 PM EST Height - - Body Mass Index - - documented in this encounter Progress Notes * Haja Marshall MD - 11/06/2019 3:30 PM EST Images from the original note were not included. RADIATION ONCOLOGY - Weekly On Treatment Visit Note 11/06/19 Haja Marshall MD, MS Radiation Oncology [facility] [phone] (paging battery wrecker operator) Pager #[phone] PATIENT IDENTIFICATION Name Rey Jean Baptiste Date [...] score today is 0/10. MEDICATIONS Medications 11/06/19 7756 Medication Sig Taking? tamsulosin (FLOMAX) 0.4 mg [...] EST Office Visit Radiation Oncology at [address] [phone] Gloria Baca PA [facility] DR [place] [address] documented as of this encounter Visit Diagnoses Diagnosis Malignant neoplasm of prostate documented in this encounter Care Teams Intelligence Research Specialist Relationship Specialty Start Date End Date Haja Marshall MD [address] [place] [address] [place] [address] PCP - General Radiation Oncology 09/24/19 01/12/20 documented as of this encounter
--- OUTSIDE RECORDS SUMMARY | 2024-08-01 15:20 | XMS_ITS | Encounter Summary ---
Author Organization [facility] [place] [address] Care Team Providers Care Recruiting Intern Name Role Phone Tylor William Primary Care Provider [phone] Reason for Visit * Consultation (Routine) - Specialty Diagnoses / Procedures Referred By Isatu t Referred To Contact Vascular Surgery Diagnoses Pain in leg, unspecified Polyneuropathy, unspecified Mencarolina-Ursula Emerson [address] [place] [address] [facility] [place] [place] Vascular Surg [address] [place] [address] Referral ID Status Reason Start Date Expiration Date V isits Requested Visits Authorized [id number] Consult, Test & Treat PCP Updated and/or Approved 03/24/2020 03/24/2021 12 12 Encounter Details Date Type Department Care Team (Late Contact Info) Description 04/13/2020 1:00 PM EDT Tech [place] [phone] Gerardo [place] Pain in both lower extremities Social History [...] EST Office Visit Radiation Oncology at [address] [phone] Gloria Baca PA [facility] DR [place] [address] documented as of this encounter Procedures Procedure Name Priority Date/Time Associated Diagnosis Comments ROXANNE, LEGS, MULTIPLE LEVELS Routine 04/13/2020 12:51 PM EDT Pain in both lower extremities documented in this encounter Results * ROXANNE, legs, multiple levels (04/13/2020 12:51 PM EDT) VB Text Report Department: Vascular Surgery Lab Patient: [id number] (ALONSO BURKS) CPT: 06867 ICD10: M79.604;M79.60 5 Referring Physician: JANA RICKS [...] EDT Jana Ricks APRN VASCULAR ORDERABLE S [facility] documented in this encounter Visit Diagnoses Diagnosis Pain in both lower extremities documented in this encounter Care Teams Recruiting Intern Relationship Specialty Start Date End Date Tylor William PA PCP - General General Internal Medicine 01/13/2002/23 documented as of this encounter
--- OUTSIDE RECORDS SUMMARY | 2024-08-01 15:20 | XMS_ITS | Encounter Summary ---
Author Organization [facility] [place] [address] Care Team Providers Care Car Hop Name Role Phone Unavailable Primary Care Provider Unavailabl e Encounter Details Date Type Department Care Team (Late Contact Info) Description 09/22/2019 Notes Only Radiation Oncology at [address] [phone] Angelita Deleon MSW OFFICE OF CARE MANAGEMENT [...] Progress Notes * Angelita Deleon MSW - 09/22/2019 2:14 PM EST Follow up with pt, and daughter during rad onc clinic visit. Pt indicated he has not hear from re the status of his financial assitance application that was submitted by [facility] his behalf about 4 weeks ago. Gave [...] EST Office Visit Radiation Oncology at [address] [phone] Gloria Baca PA [facility] DR HEMATOLOGY [place] [address] documented as of this encounter Visit Diagnoses Not on filedocumented in this encounter
--- OUTSIDE RECORDS SUMMARY | 2024-08-01 15:20 | XMS_ITS | Clinical Summary ---
Author Organization [facility] Address [address] [place] [address] Care Team Providers Care Conveyor Attendant Name Role Phone Ursula Jacob Primary Care Provider Social History Tobacco Use Types Packs/Day Years Used Date Smoking Tobacco: Never Assessed Interpersonal Safety Answer Date Record ed Physically Hurt Never 04/26/2020 Verbally Threaten Not on file 04/26/2020 Sex and Gender Information Value Date Recorded Sex Assigned at Not on file Gender Identity Not on file Sexual Orientation Not on file Plan of Treatment Health Maintenance Due Date Last Done Comments Hepatitis C Screen 1950 RSV Immunization ( o r 60+ Years) (1 - 1-dose 60+ series) 2010 Fall Risk Screening 2015 COVID-19 Vaccine (2022-24 season) 2024 Care Teams Conveyor Attendant Relationship Specialty Start Date End Date Ursula Jacob [address] [place] [address] PCP - General 04/24/23
--- OUTSIDE RECORDS SUMMARY | 2024-08-01 15:20 | XMS_ITS | Encounter Summary ---
Author Organization [facility] [place] [address] Care Team Providers Care Sap Basis Administrator Name Role Phone Haja Marshall MD Primary Care Provider [phone] Reason for Visit * Reason Comments Simulation * Consultation (Routine) - Closed Specialty Diagnoses / Procedures Referred By Contdasha t Referred To Contact Radiation Oncology Diagnoses Primary malignant neoplasm of prostate with high risk of recurrence due to Stuart score of 8 to 10 and PSA greater than 20 Procedures Simulation for Radiation Therapy Planning Haja Marshall MD [address] [place] [address] [place] [address] [facility] Rad Onc Office [address] [place] [phone] Referral ID Status Reason Start Date Expiration Date V isits Requested Visits Authorized [id number] Closed Consult, Test & Treat 09/22/2019 09/21/2020 1 1 Encounter Details Date Type Department Care Team (Late st Contact Info) Description 10/24/2019 2:00 PM EST Ancillary Appointment [place] [address] Haja Marshall MD [address] [place] [address] [place] [address] Social History Tobacco Use Types Packs/Day Years Used Date Smoking Tobacco: Never Smokeless Tobacco: Never Alcohol Use Standard Drinks/Week Comments Yes 0 (1 standard drink = 0.6 oz pur e alcohol) occasional beer Sex and Gender Information Value Date Recorded Sex Assigned at Not on file Gender Identity Not on file Sexual Orientation Not on file documented as of this encounter Patient Instructions * Patient Instructions* Johnna Vinson RN - 10/24/2019 2:00 PM EST Radiation Therapy for Prostate Cancer ?? Once you have been diagnosed with prostate cancer you face decisions about how to treat it. ?? This document describes what is involved in treating your prostate cancer with Radiation Therapyhere at [facility] Androgen Deprivation Therapy (ADT) ?? ADT means taking medicines to lower your testosterone. Prostate cancer feeds on testosterone, sotaking it away starves your cancer. ?? You will first need to take a pill called bicalutamide which discourages your body from absorbing testosterone. ?? After taking this pill you will come in for a shot called leuprolide which discourages your bodyfrom producing testosterone. ?? These two medicines work together to lower your testosterone level to a very low level. The length of time you take these medications will be personalized for you by your physician according to your personal needs. ?? You will need to have [...] your bladder tissue from the radiation and helpskeep some of your bowel out of the treatment area. About 2 weeks after simulation you will begin radiation treatments. What to Expect During Treatments. ?? Treatments are given in 15-30 minutes increments daily Sunday through Sunday during the hours of7:30 am- 5 pm. ?? You may drive yourself to and from these appointments. You may request a certain time of day that is convenient for you. ?? You may start [...] weaker. You may have some discomfort when youurinate. ?? Please tell the nurse or your doctor if you experience any of these symptoms. ?? You may notice a change in your bowel patterns. Your bowel movements may be more frequent and/orloose. ?? If you develop bowel symptoms, please let the nurse or your doctor know. Please ask the nurse or your doctor if you have any questions or concerns about your personalized course of treatment. documented in this encounter Plan of Treatment Upcoming Encounters Date Type Department Care Team (Late st Contact Info) Description 08/07/2024 9:00 AM EST Office Visit Radiation Oncology at [address] [phone] Gloria Baca PA [facility] DR HEMATOLOGY [place] [address] Scheduled Orders Name Type Priority Associated Diagnoses Orde r Schedule Simulation for Radiation Therapy Planning Procedures Routine Primary malignant neoplasm of prostate with high risk of recurrence due to Ramon score of 8 to 10 and PSA greater than 20 Ordered: 09/22/2019 documented as of this encounter Visit Diagnoses Not on filedocumented in this encounter Care Teams Sap Basis Administrator Relationship Specialty Start Date End Date Haja Marshall MD [address] [place] [address] [place] [address] PCP - General Radiation Oncology 09/24/19 01/12/20 documented as of this encounter
--- OUTSIDE RECORDS SUMMARY | 2024-08-01 15:20 | XMS_ITS | Encounter Summary ---
Author Organization [facility] Address [address] [place] [address] Care Team Providers Care Calciner Feeder Name Role Phone Ursula Jacob Primary Care Provider [phone] Encounter Details Date Type Department Care Team (Late st Contact Info) Description 04/26/2023 Lab Requisition [facility] Pathology & Laboratory Medicine - [facility] [address] [place] [address] Enoch Iraheta MD [address] [place] [address], [address] [place], [place] [id number] Other fecal abnormalities Social History Tobacco Use Types Packs/Day Years [...] Priority Date/Time Associated Diagnosis Comments SURGICAL PATHOLOGY Today 04/26/2023 7: 39 EDT Other fecal abnormalities documented in this encounter Results * SURGICAL PATHOLOGY (04/26/2023 7:39 EDT) Note to Patient The following pathology results have been interpreted by your pathologist and may be available to you before your health provider has had the opportunity to review them. Please allow time for your provider to receive these results and explore management options, if applicable. 04/30/2023 14:28 EDT [facility] Final Diagnosis A. COLON, CECUM, POLYP X2, BIOPSY: - Tubulovillous/tub ular adenomas. 04/30/2023 14:28 [facility] Attestation By the signature below, the attending physician certifies that they have 1) personally conducted a gross and/or microscopic examination of the described specimen(s), and/or personally interpreted the results of laboratory testing of the described specimen(s), and 2) personally rendered or confirmed the above diagnosis. 04/30/2023 14:28 [facility] at 1428 Clinical History +Cologuard colon cancer screening 04/30/2023 14:28 [facility] Gross Description A. Received in formalin labelled with proper patient identification (initials G, M) and 1. Cecal polyp x2 are 3 byrd to byrd-brown granular to nodular polypoid tissues (1.0 x 0.9 x 0.7 cm to 0.5 x 0.5 x 0.3 cm). Entirely submitted as follows: BLOCK CHAVES A1- 1.0 cm polypoid tissue, trisected A2- 0.7 cm polypoid tissue, bisected A3- 0.5 cm polypoid tissue, bisected Анна [facility] 04/27/2023 9:43 04/30/2023 14:28 [facility] Performing Lab [facility] 04/30/2023 14:28 [facility] Scanned Images 04/30/2023 14:28 [facility] Tissue CECUM STRUCTURE / Unknown 04/26/2023 7:39 EDT 04/26/2023 19:17 EDT Enoch Iraheta MD PATHOLOGY ORDERABLES [facility] [address] [place] [address] documented in this encounter Visit Diagnoses Diagnosis Other fecal abnormalities documented in this encounter Care Teams Calciner Feeder Relationship Specialty Start Date End Date Ursula Jacob [address] [place] [address] PCP - General 04/24/23 documented as of this encounter
--- OUTSIDE RECORDS SUMMARY | 2024-08-01 15:20 | XMS_ITS | Encounter Summary ---
Author Organization [facility] [place] [address] Care Team Providers Care Director Of Casino Marketing Name Role Phone Haja Marshall MD Primary Care Provider [phone] Encounter Details Date Type Department Care Team (Late st Contact Info) Description 12/25/2019 3:15 PM EDT Office Visit Radiation Oncology at [address] [phone] Haja Marshall MD [address] [place] [address] DR RADIATION ONCOLOGY [place], [place] [id number] Malignant neoplasm of prostate Social History Tobacco [...] Progress Notes * Haja Marshall MD - 12/25/2019 3:15 PM EDT Images from the original note were not included. 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 Also advised todrink more water in the mid-day for more dilute urine in the evening. Followup: Return to clinic next week for on treatment check. documented in this encounter Plan of Treatment Upcoming Encounters Date Type Department Care Team (Late st Contact Info) Description 08/07/2024 9:00 AM EST Office Visit Radiation Oncology at [address] [phone] Gloria Baca PA [facility] DR HEMATOLOGY [place] [address] documented as of this encounter Visit Diagnoses Diagnosis Malignant neoplasm of prostate documented in this encounter Care Teams Director Of Casino Marketing Relationship Specialty Start Date End Date Haja Marshall MD [address] [place] [address] [place] [address] PCP - General Radiation Oncology 09/24/19 01/12/20 documented as of this encounter
--- OUTSIDE RECORDS SUMMARY | 2024-08-01 15:20 | XMS_ITS | Encounter Summary ---
Author Organization [facility] Address [facility] [place] [address] Care Team Providers Care Water Registrar Name Role Phone Haja Marshall MD Primary Care Provider Encounter Details Date Type Department Care Team (Late st Contact Info) Description 12/21/2019 Telephone Radiation Oncology at [address] [phone] Keeley Goodson Social History Tobacco [...] * Telephone Encounter - Keeley Goodson - 12/21/2019 [...] AM EST Office Visit Radiation Oncology at [address] [phone] Gloria Baca PA [facility] DR [place] [address] documented as of this encounter Visit Diagnoses Not on filedocumented in this encounter Care Teams Water Registrar Relationship Specialty Start Date End Date Haja Marshall MD [address] [place] [address] [place] [address] PCP - General Radiation Oncology 09/24/19 01/12/20 documented as of this encounter
[2024-08-04 12:24] LABS: PSA, Ultrasensitive 0.15 ng/mL (<= 6.5)
== END 2024-08-01 15:15 | disposition home or self-care (01) ==
LOC: LBO 15:17
PROVIDERS: PCP Nurse Practitioner Family; Visit Provider Physician Assistant
DX: C61 Malignant neoplasm of prostate (principal)
CPT/HCPCS: 36415; 84153

== ENCOUNTER → 2024-12-22 08:24 | Outpatient (BNVA) | payer MEDICARE, SELFPAY | PROVIDERS: PCP Nurse Practitioner Family; Visit Provider Nurse Practitioner Gerontology | DX: C61 Malignant neoplasm of prostate (principal); N40.0 Benign prostatic hyperplasia without lower urinary tract symptoms; R39.9 Unspecified symptoms and signs involving the genitourinary system | CPT/HCPCS: 51798; 99213 ==

== ENCOUNTER 2025-02-05 01:44 | Outpatient (CLI) | payer MEDICARE, SELFPAY ==
[2025-02-09 12:45] LABS: PSA, Ultrasensitive 0.19 ng/mL (<= 6.5)
[2025-02-10 11:52] LABS: Testosterone, Total 353 ng/dL (240-950)
== END 2025-02-05 01:45 | disposition home or self-care (01) ==
PROVIDERS: PCP Nurse Practitioner Family; Visit Provider Physician Assistant
DX: C61 Malignant neoplasm of prostate (principal)
CPT/HCPCS: 36415; 84153; 84403

== ENCOUNTER 2025-02-13 17:01 | Emergency (ER) | payer MEDICARE, SELFPAY ==
[2025-02-13] VITALS (20 sets, daily range): BP systolic 145–156; BP diastolic 63–70; PULSE 58–79; RESP 16–18; TEMP 36.8; O2SAT 97–99
--- NOTE | 2025-02-13 17:45 | RT.EKG_ITS ---
APPROVED REPORT Exam: Resting ECG Reason for Exam: unwitnessed fall Patient Location: E HR:61 bpm ECG Measurements Heart Rate 61 AXIS PA 166 P 36 QRSd 77 QRS 78 QT 375 T -9 QTc 380 Conclusion Sinus rhythm, HR 61 No interval abnormalities No STEMI No significant changes from priors
[2025-02-13 18:55] LABS: Bilirubin Negative (Negative); Blood Negative (Negative); Clarity Clear (Clear); Glucose Negative (Negative); Ketones Negative (Negative); Leukocyte Esterase Negative (Negative); Nitrite Negative (Negative); Urobilinogen 0.2 mg/dL (Up to 0.2)
[2025-02-13 19:02] LABS: Abs Immature Grans 0.13 10^3/uL (0.0-0.06); Absolute Basophil Count 0.08 10^3/uL (0.0-0.2); Absolute Lymphocyte Count 1.46 10^3/uL (1.2-3.4); Basophils % 0.5 %; Eosinophils % 0.7 %; Immature Grans % 0.8 %; Lymphocytes % 8.9 %; MCH 27.6 pg (27.0-33.0); MCV 86 fL (80-95); MPV 8.8 fL (8.0-11.0); Monocytes % 10.4 %; Neutrophils % 78.7 %; Platelet Count 236 10^3/uL (130-400); RDW 12.4 % (11.8-14.1); RDW-SD 39.1 fL; WBC 16.38 10^3/uL (4.4-10.8)
[2025-02-13 19:11] LABS: Absolute Eosinophil Count 0.11 10^3/uL (0.0-0.7); Absolute Neutrophil Count 12.89 10^3/uL (1.2-6.7)
[2025-02-13 19:12] LABS: Diff Comment Agrees w/ Instrument; RBC Morphology Normal
[2025-02-13 19:20] LABS: ALT 24 U/L (16-63); AST 15 U/L (15-37); Albumin 3.9 g/dL (3.4-5.0); Alkaline Phosphatase 128 U/L (46-116); BUN 13 mg/dL (7-18); Bilirubin, Total 0.5 mg/dL (0.2-1.0); Calcium 8.8 mg/dL (8.5-10.1); Chloride 106 mmol/L (98-107); Estimated GFR 78.98 (mL/min/1.73m2); Glucose 100 mg/dL (74-106); Potassium 3.7 mmol/L (3.5-5.1); Sodium 142 mmol/L (136-145); Total Protein 7.2 g/dL (6.4-8.2); Troponin I 7 ng/L (<or=76)
[2025-02-13] MEDS: Omnipaque 350 MG/ML 100 ML BTL IJ (20:01)
[2025-02-13] MEDS: Normal Saline - Diluent 50 ML VIAL IJ (20:02)
--- NOTE | 2025-02-13 20:15 | DI.CT_ITS ---
Exam(s) CT BRAIN NECK CTA EXAM: CT BRAIN NECK CTA CLINICAL HISTORY: HI, rle weakness. TECHNIQUE: Imaging Protocol: Axial CT angiography was performed with multi-slice acquisition and mu lti-planar and MIP reconstructions. CONTRAST MATERIAL: Intravenous: Omnipaque 350 Contrast volume:70 ml COMPARISON: CT CT HEAD FACIAL WO from 11/25/2021 FINDINGS: CT Head W/O and W contrast: Ventricles and Extra axial spaces: Normal in size and morphology for the patient's age. Hemorrhage: None. Cerebral parenchyma: No evidence of acute infarct or mass. Midline shift: None. Brainstem/Cerebellum: No acute findings.. Calvarium: Normal. Visualized Paranasal sinuses/Mastoids: Small air-fluid level in right maxillary sinus. Soft Tissues: Unremarkable. Enhancement: Normal. Venous sinuses are patent. CTA Brain W: Internal Carotid Arteries: Right: No aneurysm, occlusion or significant stenosis. Left: No aneurysm, occlusion or significant stenosis. Middle Cerebral Arteries: Right: No aneurysm, occlusion or significant stenosis. Left: No aneurysm, occlusion or significant stenosis. Anterior Cerebral Arteries: Right: Hypoplastic, normal variant. Left: No aneurysm, occlusion or significant stenosis. Posterior cerebral Arteries: Right: No aneurysm, occlusion or significant stenosis. Left: No aneurysm, occlusion or significant stenosis. Vertebral Arteries: Right: Diminutive. Terminates in PICA. No aneurysm, occlusion or significant stenosis. Left: No aneurysm, occlusion or significant stenosis. Basilar Artery: No aneurysm, occlusion or significant stenosis. CTA Neck W: Common Carotid: Right: Focal severe narrowing secondary to mainly noncalcified plaque just proximal to the bifurcatio n. No dissection, occlusion or significant stenosis. Left: Small amount of mixed plaque at the bulb. No dissection, occlusion or significant stenosis. External Carotid: Right: No dissection, occlusion or significant stenosis. Left: No dissection, occlusion or significant stenosis. Internal Carotid: Right: No dissection, occlusion or significant stenosis. Left: Tortuous distally. No dissection, occlusion or significant stenosis. Vertebral Artery: Right: No dissection, occlusion or significant stenosis. Left: Dominant. No dissection, occlusion or significant stenosis. Lung Apices: No acute findings. Bones: No acute abnormality. Prominent endplate osteophytes in the cervical spine, greatest at C4-5 , causing moderate central canal stenosis. Soft Tissues: Normal. IMPRESSION: 1. CTA brain: No evidence of aneurysm, vascular occlusion or significant stenosis.. 2. Head CT: No acute abnormality. 3. CTA neck: Severe stenosis of the distal right common carotid artery just before the bifurcation. The preliminary [facility] report was reviewed. RADIATION DOSE DELIVERED: Total DLP DATA REPOSITORY: All CT scans at this facility are submitted to the National Radiology Data Registry (NRDR) Dose Index Registry (DIR) with the [employer] (ACR). RADIATION OPTIMIZATION: All CT scans at this facility use at least one of these dose optimization te chniques: automated exposure control; mA and/or kV adjustment per patient size (includes targeted exa ms where dose is matched to clinical indication); or iterative reconstruction.
--- NOTE | 2025-02-13 20:18 | DI.RAD_ITS ---
Exam(s) XR CHEST 2V PA LATERAL EXAM: XR CHEST 2V PA LATERAL CLINICAL HISTORY: rle weakness, tia TECHNIQUE: 2D digital imaging was performed. Two views. COMPARISON: No exams were available for comparison FINDINGS: HEART: Normal size. Aorta: Not dilated. PULMONARY VASCULATURE: Normal. MEDIASTINUM: Unremarkable. LUNGS: Clear. PLEURAL SPACE: No pleural effusion or pneumothorax. BONE:Unremarkable for age. SOFT TISSUES: Unremarkable. IMPRESSION: No acute abnormality. The preliminary [facility] report was reviewed. DATA REPOSITORY: RADIATION DOSE DELIVERED:
[2025-02-13 20:44] LABS: Troponin I < 4 ng/L (<or=76)
--- NOTE | 2025-02-13 20:54 | DI.[facility]_ITS ---
PROCEDURE INFORMATION: Exam: CTA Head Without And With Contrast, Arteriography Exam date and time: 02/13/2025 7:58 PM Age: 74 years old Clinical indication: Head injury, rle weakness TECHNIQUE: Imaging protocol: Computed tomographic angiography of the head without and with contrast. Exam focused on the arteries. 3D rendering (Not supervised by radiologist): MIP and/or 3D reconstructed images were created by the technologist. Radiation optimization: All CT scans at this facility use at least one of these dose optimization techniques: automated exposure control; mA and/or kV adjustment per patient size (includes targeted exams where dose is matched to clinical indication); or iterative reconstruction. Contrast material: [id number]; Contrast volume: 70 ml; Contrast route: INTRAVENOUS (IV); COMPARISON: CT HEAD FACIAL WO 11/25/2021 3:57 PM FINDINGS: ANTERIOR CIRCULATION: Right internal carotid artery: Intracranial segment is patent with no significant stenosis or occlusion. No aneurysm. Right middle cerebral artery: No occlusion or significant stenosis. No aneurysm. 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 No aneurysm. Left internal carotid artery: Intracranial segment is patent with no significant stenosis. No aneurysm. Left middle cerebral artery: No occlusion or significant stenosis. No aneurysm. Left anterior cerebral artery: No occlusion or significant stenosis. No aneurysm. 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 Left vertebral artery: No occlusion or significant stenosis. No aneurysm. Basilar artery: No occlusion or significant stenosis. No aneurysm. Right posterior cerebral artery: No occlusion or significant stenosis. No aneurysm. Left posterior cerebral artery: No occlusion or significant stenosis. No aneurysm. HEAD: Brain: No intracranial mass, acute transcortical infarction or recent intracranial hemorrhage is detected. Cerebral ventricles: No midline shift or hydrocephalus. Bones: No acute fracture. Paranasal sinuses: Grossly clear throughout. Mastoid air cells: Grossly clear bilaterally. Soft tissues: Unremarkable. IMPRESSION: 1. 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 2. 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 3. No large vessel stenosis or occlusion detected involving the remaining major branches of the anterior or posterior intracranial circulation. 4. No evidence of acute transcortical infarction, recent intracranial hemorrhage or hydrocephalus. No acute intracranial process is detected. PROCEDURE INFORMATION: Exam: CTA Neck Without And With Contrast Exam date and time: 02/13/2025 7:58 PM Age: 74 years old Clinical indication: Head injury, rle weakness TECHNIQUE: Imaging protocol: Computed tomographic angiography of the neck without and with contrast. Exam focused on the cervical segments of the vasculature. 3D rendering (Not supervised by radiologist): MIP and/or 3D reconstructed images were created by the technologist. Radiation optimization: All CT scans at this facility use at least one of these dose optimization techniques: automated exposure control; mA and/or kV adjustment per patient size (includes targeted exams where dose is matched to clinical indication); or iterative reconstruction. Contrast material: [id number]; Contrast volume: 70 ml; Contrast route: INTRAVENOUS (IV); COMPARISON: NM BONE SCAN WHOLE BODY GRP 07/25/2019 11:09 AM FINDINGS: Right common carotid artery: Severe stenosis involves the distal right common carotid artery just proximal to the bifurcation. Right internal carotid artery: No stenosis of the extracranial segment. No dissection or occlusion. Right external carotid artery: No occlusion or stenosis of the origin. Left common carotid artery: No stenosis. No dissection or occlusion. Left internal carotid artery: No stenosis of the extracranial segment. There is marked tortuosity noted involving the midportion of the cervical segment of the left ICA with no dissection or occlusion. Left external carotid artery: No occlusion or stenosis of the origin. Right vertebral artery: No stenosis. No dissection or occlusion. Left vertebral artery: No stenosis. No dissection or occlusion. Soft tissues: Normal. No significant soft tissue swelling. Bones/joints: No acute fracture. IMPRESSION: 1. Severe stenosis involves the distal right common carotid artery just proximal to the bifurcation. 2. No evidence of 50% or greater stenosis is seen for the cervical segments of the right or left internal carotid arteries by NASCET criteria. REFERENCES: NASCET CRITERIA. The degree of stenosis in the cervical segment of the internal carotid artery is based on NASCET criteria. Normal is no stenosis. Mild is less than 50% stenosis. Moderate is 50-69% stenosis. Severe is 70% to 99% stenosis. Total occlusion is no detectable patent lumen. Dictated and Authenticated by: Leobardo Blackburn MD. Orderin Anahy Medina MD
--- NOTE | 2025-02-13 20:55 | DI.[facility]_ITS ---
PROCEDURE INFORMATION: Exam: XR Chest Exam date and time: 02/13/2025 8:16 PM Age: 74 years old Clinical indication: Other: Rle weakness, TIA TECHNIQUE: Imaging protocol: Radiologic exam of the chest. Views: 2 views. COMPARISON: NM BONE SCAN WHOLE BODY GRP 07/25/2019 11:09 AM FINDINGS: Lungs: Lungs are clear throughout with no mass or consolidation detected. Pleural spaces: No pneumothorax or pleural effusion detected. Heart/Mediastinum: Heart size is normal and vessel margins are sharply defined. Bones/joints: No acute osseous lesions are detected. IMPRESSION: No acute findings. Dictated and Authenticated by: Leobardo Blackburn MD. Orderin Anahy Medina MD
--- NOTE | 2025-02-13 23:25 | W.ED.GENAD ---
Discharge Plan Discharge Details Chief Complaint: HeadInjury Primary Care Provider: Ursula Jacob ED Provider: Carol Higginbotham Home Meds and New Rx's Prescriptions: No Action atorvastatin 40 mg tablet 40 mg PO DAILY tamsulosin [Flomax] 0.4 mg capsule 0.8 mg PO HS Qty: 180 3RF aspirin 81 mg tablet,delayed release (DR/EC) 81 mg PO DAILY HPI General Date/Time Provider Initiated Documentation: 02/13/25 18:15. HPI Narrative: 40-year-old male with history of left-sided testicular cancer, status post orchiectomy 5 years ago, presents with right-sided testicular pulling for 3 months. No sexual activity for 10 years, no trauma, no systemic symptoms (fever, chills, urinary complaints, weight loss, night sweats). Related Data Home Medications ?Medication ?Instructions ?Recorded ?Confirmed atorvastatin 40 mg tablet 40 mg PO DAILY 11/11/20 02/13/25 aspirin 81 mg tablet,delayed 81 mg PO DAILY 03/05/23 02/13/25 release tamsulosin 0.4 mg capsule (Flomax) 0.8 mg (2 x 0.4 mg) PO HS #180 caps 12/22/24 02/13/25 Previous Rx's ?Medication ?Instructions ?Recorded tamsulosin 0.4 mg capsule (Flomax) 0.8 mg (2 x 0.4 mg) PO HS #180 caps 12/22/24 Allergies Allergy/AdvReac Type Severity Reaction Status Date / Time cilostazol (From Pletal) Allergy Severe Unknown Verified 02/13/25 18:02 General Stated Complaint: HeadInjury JODIE: 3 Exam Narrative Exam Narrative: General Appearance: Resting comfortably. Vital signs: Within normal limits. HEENT: EOMI. PERRLA. Respiratory: Lungs clear to auscultation. Cardiovascular: Regular cardiac rate and rhythm. Neurological: Fully alert and oriented, GCS 15. Cranial nerves II-XII intact. Negative [id number] and sjkc-qs-[id number] tests. Ambulatory with steady gait. Psychiatric: Fully alert and oriented. Course Vital Signs Vital signs: Vital Signs Temperature 36.8 C 02/13/25 17:55 Pulse 64 02/13/25 17:55 Respiratory Rate 18 02/13/25 17:55 Blood Pressure 156/65 H 02/13/25 17:55 Pulse Oximetry 97 02/13/25 17:55 Temperature 36.8 C 02/13/25 17:55 Temperature Source Oral 02/13/25 17:55 Pulse 69 02/13/25 22:13 Respiratory Rate 16 02/13/25 22:13 Respiratory Effort Normal 02/13/25 22:17 Respiratory Depth Normal 02/13/25 22:17 Respiratory Pattern Normal 02/13/25 22:17 Blood Pressure 156/66 H 02/13/25 22:13 Blood Pressure Mean 96 02/13/25 22:13 Blood Pressure Position Supine 02/13/25 17:55 Pulse Oximetry 99 02/13/25 22:13 Oxygen Delivery Method Room Air 02/13/25 22:17 Oxygen Flow Rate 0 02/13/25 22:17 Pain Level 0 02/13/25 21:18 Lab/Test Results Lab/Test Results: Laboratory Tests Range/Units 02/13/25 02/13/25 02/13/25 18:50 18:53 19:52 WBC (4.4-10.8) 10^3/uL 16.38 H RBC (4.36-5.78) 10^6/uL 5.80 H Hgb (13.5-17.5) g/dL 16.0 Hct (40.0-50.0) % 50.0 MCV (80-95) fL 86 MCH (27.0-33.0) pg 27.6 MCHC (32.0-36.0) % 32.0 RDW (11.8-14.1) % 12.4 Plt Count (130-400) 10^3/uL 236 MPV (8.0-11.0) fL 8.8 Immature Gran % % 0.8 Neutrophils % % 78.7 Lymphocytes % % 8.9 Monocytes % % 10.4 Eosinophils % % 0.7 Basophils % % 0.5 Nucleated RBC % (0.0-0.3) % 0.0 Absolute Neutrophils (1.2-6.7) 10^3/uL 12.89 H Absolute Lymphocytes (1.2-3.4) 10^3/uL 1.46 Absolute Monocytes (0.1-0.8) 10^3/uL 1.70 H Absolute Eosinophils (0.0-0.7) 10^3/uL 0.11 Absolute Basophils (0.0-0.2) 10^3/uL 0.08 RBC Morphology Normal Sodium (136-145) mmol/L 142 Potassium (3.5-5.1) mmol/L 3.7 Chloride (98-107) mmol/L 106 Carbon Dioxide (21.0-32.0) mmol/L 30.0 Anion Gap (3-11) mmol/L 6.0 BUN (7-18) mg/dL 13 Creatinine (0.70-1.30) mg/dL 1.0 Est GFR (CKD-EPI 2020) (mL/min/1.73m2) 78.98 Glucose (74-106) mg/dL 100 Calcium (8.5-10.1) mg/dL 8.8 Magnesium (1.8-2.4) mg/dL 2.0 Total Bilirubin (0.2-1.0) mg/dL 0.5 AST (15-37) U/L 15 ALT (16-63) U/L 24 Alkaline Phosphatase (46-116) U/L 128 H Troponin I (<or=76) ng/L 7 < 4 Total Protein (6.4-8.2) g/dL 7.2 Albumin (3.4-5.0) g/dL 3.9 Urine Color (Yellow) Yellow Urine Clarity (Clear) Clear Urine pH (5-8) 6.0 Ur Specific [place] (1.005-1.025) 1.020 Urine Protein (Neg-Trace) mg/dL Negative Urine Ketones (Negative) mg/dL Negative Urine Blood (Negative) Negative Urine Nitrite (Negative) Negative Urine Bilirubin (Negative) Negative Urine Urobilinogen (Up to 0.2) mg/dL 0.2 Ur Leukocyte Esterase (Negative) Negative Urine Glucose (Negative) mg/dL Negative Range/Units 02/13/25 21:36 WBC (4.4-10.8) 10^3/uL RBC (4.36-5.78) 10^6/uL Hgb (13.5-17.5) g/dL Hct (40.0-50.0) % MCV (80-95) fL MCH (27.0-33.0) pg MCHC (32.0-36.0) % RDW (11.8-14.1) % Plt Count (130-400) 10^3/uL MPV (8.0-11.0) fL Immature Gran % % Neutrophils % % Lymphocytes % % Monocytes % % Eosinophils % % Basophils % % Nucleated RBC % (0.0-0.3) % Absolute Neutrophils (1.2-6.7) 10^3/uL Absolute Lymphocytes (1.2-3.4) 10^3/uL Absolute Monocytes (0.1-0.8) 10^3/uL Absolute Eosinophils (0.0-0.7) 10^3/uL Absolute Basophils (0.0-0.2) 10^3/uL RBC Morphology Sodium (136-145) mmol/L Potassium (3.5-5.1) mmol/L Chloride (98-107) mmol/L Carbon Dioxide (21.0-32.0) mmol/L Anion Gap (3-11) mmol/L BUN (7-18) mg/dL Creatinine (0.70-1.30) mg/dL Est GFR (CKD-EPI 2020) (mL/min/1.73m2) Glucose (74-106) mg/dL Calcium (8.5-10.1) mg/dL Magnesium (1.8-2.4) mg/dL Total Bilirubin (0.2-1.0) mg/dL AST (15-37) U/L ALT (16-63) U/L Alkaline Phosphatase (46-116) U/L Troponin I (<or=76) ng/L Cancelled Total Protein (6.4-8.2) g/dL Albumin (3.4-5.0) g/dL Urine Color (Yellow) Urine Clarity (Clear) Urine pH (5-8) Ur Specific [place] (1.005-1.025) Urine Protein (Neg-Trace) mg/dL Urine Ketones (Negative) mg/dL Urine Blood (Negative) Urine Nitrite (Negative) Urine Bilirubin (Negative) Urine Urobilinogen (Up to 0.2) mg/dL Ur Leukocyte Esterase (Negative) Urine Glucose (Negative) mg/dL Medical Decision Making CBC: Mildly elevated WBC at 16,000. Other labs reassuring, including urinalysis. CTA: Stenosis of right internal carotid, no acute abnormality. EKG: Nonischemic. Initial Assessment: 74-year-old gentleman with history of prostate cancer, urinary retention presents with acute weakness in his right lower extremity after standing up from his golf cart. Symptoms resolved completely after pulling himself into the truck. Denies loss of consciousness, chest pain, shortness of breath, headache, prior similar episodes, or history of stroke. On arrival, fully alert and oriented, GCS 15, cranial nerves II-XII intact, negative [id number], negative [id number], ambulatory with steady gait, cardiac rate rhythm regular, lungs clear to auscultation, extraocular muscles intact, pupils equal, round, reactive to light and accommodation. Blood work shows mildly elevated white count at 16,000, remainder of labs reassuring including urinalysis. EKG nonischemic. CTA shows stenosis to right internal carotid, no other acute abnormality. Teleneuro consulted and does not feel this was a TIA or CVA. Suspect focal seizure, requires MRI and EEG monitoring. MRI unavailable until Sunday, continuous EEG monitoring unavailable. Neurologist does not recommend antiepileptics currently but suggests earlier imaging and admission. Awaiting return call. ED Course: - Teleneuro consultation suspects focal seizure over TIA or CVA. - MRI and EEG recommended. - MRI unavailable until Sunday. - Continuous EEG monitoring unavailable. - Neurologist does not recommend antiepileptics currently but suggests earlier imaging and admission. - Awaiting return call. - [facility] is able to accept this patient tomorrow the accepting neurologist is Dr. Alonso Perez Final Assessment: Patient presented with acute right lower extremity weakness, resolved completely after pulling himself into the truck. Teleneuro consultation suspects focal seizure over TIA or CVA. MRI and EEG recommended but unavailable until Sunday. Neurologist does not recommend antiepileptics currently but suggests earlier imaging and admission. Awaiting return call. Clinical Impression: - Acute right lower extremity weakness - Suspected focal seizure Disposition: - Admission: Recommendation for admission pending return call. MDM Components Evaluation: - Number of Differential Diagnoses or Management Options: TIA, CVA, focal seizure - Amount and Complexity of Data Reviewed: Teleneuro consultation, blood work, CBC, urinalysis, EKG, CTA - Risk of Complication and Morbidity or Mortality: Given patient's age and history, imaging warranted earlier than Sunday. Quality:[facility] Health Related Social Needs: No Data to Display [facility] All Active Problems (Updated 07/04/23 @ 10:43 by Anne Sanford RN) Tubulovillous adenoma (Acute ~04/26/23) Tubular adenoma of colon (Acute ~04/26/23) Positive colorectal cancer screening using Cologuard test (Acute) Hemorrhoids (Acute) Acute urinary retention (Acute) Prostate cancer (Chronic) BPH (benign prostatic hyperplasia) (Chronic) prior thao placement for urinary retention Medical History (Updated 07/04/23 @ 10:43 by Anne Sanford RN) Calf pain Leg pain, bilateral Arterial occlusive disease Blood glucose elevated Elevated PSA Prostate nodule Complicated UTI (urinary tract infection) History of shoulder fracture left History of lower leg fracture right Surgical History (Updated 04/27/23 @ 08:02 by Ariella Rodrigues) History of colonoscopy (~04/2023) Family History Father Heart disease age 57 from [place] Mother No problems noted. Brother , unknown cause of No problems noted. Sister No problems noted. Sister No problems noted. Social History Smoking/Tobacco Use Status: Never Smoking risk assessment performed?: Yes Alcohol Intake: never Drug use: Never Substance use type: does not use Housing: house Current gender identity: male Do you feel safe at home: Yes Do you feel safe in your relationship?: Yes
[2025-02-14] VITALS (93 sets, daily range): BP systolic 92–131; BP diastolic 31–85; PULSE 53–94; RESP 11–31; TEMP 36.4; O2SAT 95–97
--- NOTE | 2025-02-14 07:49 | ED.GENADUL_ITS ---
Discharge Plan Discharge Details Chief Complaint: HeadInjury Primary Care Provider: Ursula Jacob ED Provider: Yordan Scott Home Meds and New Rx's Prescriptions: No Action atorvastatin 40 mg tablet 40 mg PO DAILY tamsulosin [Flomax] 0.4 mg capsule 0.8 mg PO HS Qty: 180 3RF aspirin 81 mg tablet,delayed release (DR/EC) 81 mg PO DAILY HPI General Date/Time Provider Initiated Documentation: 02/13/25 18:15 . Limitations to Documentation: no limitations . Information obtained by: patient . HPI Narrative: 74-year-old gentleman with past medical history of prostate cancer prevent presents for evaluation of shortness of breath. Patient returned from an extended stay in [place] at the beginning of the month. He reports that while he was there he had a lot of exposures to dust and mold while he was renovating a home. He states that since he has returned he has had significant shortness of breath. Shortness of breath is worse with any exertion. He is no longer able to make it down to the mailbox at his house. He denies chest pain but reports like a sensation of chest tightness. He was evaluated at urgent care about 20 days ago and provided steroids albuterol and antibiotics for treatment. He reports that his symptoms have progressively worsened. He reports a slight cough that he attributes to posterior nasal drip and has been using Claritin and Flonase without much relief. He states that shortness of breath is worse with laying down and he is no longer been able to sleep. He reports that since returning from [place] his legs have been markedly swollen. Related Data Home Medications ?Medication ?Instructions ?Recorded ?Confirmed atorvastatin 40 mg tablet 40 mg PO DAILY 11/11/20 02/13/25 aspirin 81 mg tablet,delayed 81 mg PO DAILY 03/05/23 02/13/25 release tamsulosin 0.4 mg capsule (Flomax) 0.8 mg (2 x 0.4 mg) PO HS #180 caps 12/22/24 02/13/25 Previous Rx's ?Medication ?Instructions ?Recorded tamsulosin 0.4 mg capsule (Flomax) 0.8 mg (2 x 0.4 mg) PO HS #180 caps 12/22/24 Allergies Allergy/AdvReac Type Severity Reaction Status Date / Time cilostazol (From Pletal) Allergy Severe Unknown Verified 02/13/25 18:02 General Stated Complaint: HeadInjury JODIE: 3 Exam Narrative Exam Narrative: Review of Systems: All systems reviewed & are unremarkable except as noted in HPI and below Well-developed, no acute distress NCAT +JVD Mild tachycardia no apparent murmur Unlabored respiratory effort, clear breath sounds bilaterally, when laying flat, the patient becomes acutely dyspneic, and tachypneic Nondistended abdomen , soft nontender 2+ edema bilaterally no focal neurologic deficits Course Vital Signs Vital signs: Vital Signs Temperature 36.8 C 02/13/25 17:55 Pulse 64 02/13/25 17:55 Respiratory Rate 18 02/13/25 17:55 Blood Pressure 156/65 H 02/13/25 17:55 Pulse Oximetry 97 02/13/25 17:55 Temperature 36.4 C L 02/14/25 00:51 Temperature Source Temporal Artery Scan 02/14/25 06:15 Pulse 64 02/14/25 07:01 Pulse 59 L 02/14/25 07:20 Respiratory Rate 14 02/14/25 07:20 Respiratory Effort Normal, Non-Labored 02/14/25 06:15 Respiratory Depth Normal 02/14/25 06:15 Respiratory Pattern Normal 02/14/25 06:15 Blood Pressure 101/51 L 02/14/25 07:01 Blood Pressure Mean 66 02/14/25 07:01 Blood Pressure Position Supine 02/13/25 17:55 Pulse Oximetry 95 02/14/25 01:50 Oxygen Delivery Method Room Air 02/14/25 06:15 Oxygen Flow Rate 0 02/14/25 06:15 Pain Level 0 02/14/25 06:15 Lab/Test Results Lab/Test Results: Laboratory Tests Range/Units 02/13/25 02/13/25 02/13/25 18:50 18:53 19:52 WBC (4.4-10.8) 10^3/uL 16.38 H RBC (4.36-5.78) 10^6/uL 5.80 H Hgb (13.5-17.5) g/dL 16.0 Hct (40.0-50.0) % 50.0 MCV (80-95) fL 86 MCH (27.0-33.0) pg 27.6 MCHC (32.0-36.0) % 32.0 RDW (11.8-14.1) % 12.4 Plt Count (130-400) 10^3/uL 236 MPV (8.0-11.0) fL 8.8 Immature Gran % % 0.8 Neutrophils % % 78.7 Lymphocytes % % 8.9 Monocytes % % 10.4 Eosinophils % % 0.7 Basophils % % 0.5 Nucleated RBC % (0.0-0.3) % 0.0 Absolute Neutrophils (1.2-6.7) 10^3/uL 12.89 H Absolute Lymphocytes (1.2-3.4) 10^3/uL 1.46 Absolute Monocytes (0.1-0.8) 10^3/uL 1.70 H Absolute Eosinophils (0.0-0.7) 10^3/uL 0.11 Absolute Basophils (0.0-0.2) 10^3/uL 0.08 RBC Morphology Normal Sodium (136-145) mmol/L 142 Potassium (3.5-5.1) mmol/L 3.7 Chloride (98-107) mmol/L 106 Carbon Dioxide (21.0-32.0) mmol/L 30.0 Anion Gap (3-11) mmol/L 6.0 BUN (7-18) mg/dL 13 Creatinine (0.70-1.30) mg/dL 1.0 Est GFR (CKD-EPI 2020) (mL/min/1.73m2) 78.98 Glucose (74-106) mg/dL 100 Calcium (8.5-10.1) mg/dL 8.8 Magnesium (1.8-2.4) mg/dL 2.0 Total Bilirubin (0.2-1.0) mg/dL 0.5 AST (15-37) U/L 15 ALT (16-63) U/L 24 Alkaline Phosphatase (46-116) U/L 128 H Troponin I (<or=76) ng/L 7 < 4 Total Protein (6.4-8.2) g/dL 7.2 Albumin (3.4-5.0) g/dL 3.9 Urine Color (Yellow) Yellow Urine Clarity (Clear) Clear Urine pH (5-8) 6.0 Ur Specific [place] (1.005-1.025) 1.020 Urine Protein (Neg-Trace) mg/dL Negative Urine Ketones (Negative) mg/dL Negative Urine Blood (Negative) Negative Urine Nitrite (Negative) Negative Urine Bilirubin (Negative) Negative Urine Urobilinogen (Up to 0.2) mg/dL 0.2 Ur Leukocyte Esterase (Negative) Negative Urine Glucose (Negative) mg/dL Negative Range/Units 02/13/25 21:36 WBC (4.4-10.8) 10^3/uL RBC (4.36-5.78) 10^6/uL Hgb (13.5-17.5) g/dL Hct (40.0-50.0) % MCV (80-95) fL MCH (27.0-33.0) pg MCHC (32.0-36.0) % RDW (11.8-14.1) % Plt Count (130-400) 10^3/uL MPV (8.0-11.0) fL Immature Gran % % Neutrophils % % Lymphocytes % % Monocytes % % Eosinophils % % Basophils % % Nucleated RBC % (0.0-0.3) % Absolute Neutrophils (1.2-6.7) 10^3/uL Absolute Lymphocytes (1.2-3.4) 10^3/uL Absolute Monocytes (0.1-0.8) 10^3/uL Absolute Eosinophils (0.0-0.7) 10^3/uL Absolute Basophils (0.0-0.2) 10^3/uL RBC Morphology Sodium (136-145) mmol/L Potassium (3.5-5.1) mmol/L Chloride (98-107) mmol/L Carbon Dioxide (21.0-32.0) mmol/L Anion Gap (3-11) mmol/L BUN (7-18) mg/dL Creatinine (0.70-1.30) mg/dL Est GFR (CKD-EPI 2020) (mL/min/1.73m2) Glucose (74-106) mg/dL Calcium (8.5-10.1) mg/dL Magnesium (1.8-2.4) mg/dL Total Bilirubin (0.2-1.0) mg/dL AST (15-37) U/L ALT (16-63) U/L Alkaline Phosphatase (46-116) U/L Troponin I (<or=76) ng/L Cancelled Total Protein (6.4-8.2) g/dL Albumin (3.4-5.0) g/dL Urine Color (Yellow) Urine Clarity (Clear) Urine pH (5-8) Ur Specific [place] (1.005-1.025) Urine Protein (Neg-Trace) mg/dL Urine Ketones (Negative) mg/dL Urine Blood (Negative) Urine Nitrite (Negative) Urine Bilirubin (Negative) Urine Urobilinogen (Up to 0.2) mg/dL Ur Leukocyte Esterase (Negative) Urine Glucose (Negative) mg/dL Medical Decision Making Emergent evaluation of shortness of breath. Initial differential includes CHF, less likely infectious etiology, could be fungal due to exposures in [place], also consider pulmonary embolism to travel and prior history of malignancy. Patient is not hypoxic and breath sounds are clear though he becomes acutely dyspneic with laying flat and any exertion. Have a concern for CHF. His EKG was reviewed and independently interpreted, sinus 98 normal axis no acute ST segment changes. Plan for workup and chest x-ray. Quality:SDOH Health Related Social Needs: No Data to Display PFSH All Active Problems (Updated 07/04/23 @ 10:43 by Anne Sanford RN) Tubulovillous adenoma (Acute ~04/26/23) Tubular adenoma of colon (Acute ~04/26/23) Positive colorectal cancer screening using Cologuard test (Acute) Hemorrhoids (Acute) Acute urinary retention (Acute) Prostate cancer (Chronic) BPH (benign prostatic hyperplasia) (Chronic) prior thao placement for urinary retention Medical History (Updated 07/04/23 @ 10:43 by Anne Sanford RN) Calf pain Leg pain, bilateral Arterial occlusive disease Blood glucose elevated Elevated PSA Prostate nodule Complicated UTI (urinary tract infection) History of shoulder fracture left History of lower leg fracture right Surgical History (Updated 04/27/23 @ 08:02 by Ariella Rodrigues) History of colonoscopy (~04/2023) Family History Father Heart disease age 57 from [place] Mother No problems noted. Brother , unknown cause of No problems noted. Sister No problems noted. Sister No problems noted. Social History Smoking/Tobacco Use Status: Never Smoking risk assessment performed?: Yes Alcohol Intake: never Drug use: Never Substance use type: does not use Housing: house Current gender identity: male Do you feel safe at home: Yes Do you feel safe in your relationship?: Yes
--- NOTE | 2025-02-14 07:57 | ED.PROG_ITS ---
Date of service: 02/14/25 Time of Service: 07:57 Medical Decision Making Care assumed from outgoing provider. Patient is a 69-year-old gentleman that has been accepted for transfer to [facility]. Initially we were told that the bed would be ready last night, but this morning they state that they are still waiting on some discharges for room to be ready. Patient is stable and asymptomatic at this time. 0900 Bed is still not available, I have reached out to the [facility] transfer center given the timeline provided to us by the teleneurology consult and requested that the patient be excepted as an ED transfer or other recommendations to be made. 1000 Discussed with neurology, they state that the patient does not need to be brought over emergently if there is no change in his status or condition and that we can continue to wait for a bed availability. Will continue to monitor in the emergency department until a bed becomes available. 1400 bed available, transport arranged. Quality:SDOH Health Related Social Needs: No Data to Display Discharge Plan Disposition Patient Disposition: Transfer-Acute Inpatient Care Specific Acute Inpt Facility: [facility] Discharge Details Clinical Impression: Leg weakness Primary Care Provider: Ursula Jacob ED Provider: Nida Finnegan Home Meds and New Rx's Prescriptions: No Action atorvastatin 40 mg tablet 40 mg PO DAILY tamsulosin [Flomax] 0.4 mg capsule 0.8 mg PO HS Qty: 180 3RF aspirin 81 mg tablet,delayed release (DR/EC) 81 mg PO DAILY
== END 2025-02-14 14:08 | disposition short-term general hospital (02) ==
PROVIDERS: Physician Assistant; Emergency Provider Emergency Medicine; PCP Nurse Practitioner Family
DX: R29.898 Other symptoms and signs involving the musculoskeletal system (principal); W19.XXXA Unspecified fall, initial encounter; Z85.47 Personal history of malignant neoplasm of testis
CPT/HCPCS: 99285 ×2; 36415; 00123; 70496; 70498; 80053; 93005; 71046; 81003; 83735; 84484; 85025; 93010; J3490

== ENCOUNTER 2025-03-20 13:56 | Observation (INO) | payer MEDICARE, SELFPAY ==
[2025-03-20] VITALS (46 sets, daily range): BP systolic 110–159; BP diastolic 59–88; PULSE 56–78; RESP 12–28; TEMP 36.4–36.9; O2SAT 96–99
--- NOTE | 2025-03-20 14:00 | RT.EKG_ITS ---
APPROVED REPORT Exam: Resting ECG Reason for Exam: bradycardia Patient Location: E HR:68 bpm ECG Measurements Heart Rate 68 AXIS HI 168 P 38 QRSd 84 QRS -22 QT 374 T 27 QTc 397 Conclusion Sinus rhythm 68 normal axis no stemi
[2025-03-20 14:35] LABS: Abs Immature Grans 0.05 10^3/uL (0.0-0.06); Absolute Basophil Count 0.08 10^3/uL (0.0-0.2); Absolute Eosinophil Count 0.21 10^3/uL (0.0-0.7); Absolute Lymphocyte Count 1.52 10^3/uL (1.2-3.4); Absolute Monocyte Count 1.42 10^3/uL (0.1-0.8); Absolute Neutrophil Count 6.99 10^3/uL (1.2-6.7); Basophils % 0.8 %; HCT 45.3 % (40.0-50.0); HGB 14.8 g/dL (13.5-17.5); Immature Grans % 0.5 %; Lymphocytes % 14.8 %; MCH 27.9 pg (27.0-33.0); MCHC 32.7 % (32.0-36.0); MCV 85 fL (80-95); MPV 8.9 fL (8.0-11.0); Monocytes % 13.8 %; Neutrophils % 68.1 %; Platelet Count 208 10^3/uL (130-400); RBC 5.31 10^6/uL (4.36-5.78); RDW 12.4 % (11.8-14.1); RDW-SD 38.4 fL; WBC 10.27 10^3/uL (4.4-10.8)
--- NOTE | 2025-03-20 14:35 | ED.GENADUL_ITS ---
Discharge Plan Disposition Patient Disposition: Admit to [facility] Discharge Details Clinical Impression: Neurological deficit, transient Admit Date/Time: 03/20/25 16:39 Admit Provider: Surendra Ruiz Attending Provider: Surendra Ruiz Primary Care Provider: Ursula Jacob ED Provider: Nida Finnegan Discharge Data Discharge Date/Time-TO BE ENTERED AT DEPARTURE: 03/20/25 18:01 HPI General Date/Time Provider Initiated Documentation: 03/20/25 14:02 . Limitations to Documentation: no limitations . Information obtained by: patient . HPI Narrative: 75-year-old gentleman with past medical history of prostate cancer, recent diagnosis of TIA presents for evaluation of right arm sensory change. He reports that he was feeling fine when he lifted something above his head using his right arm. He reports that when he put his arm back down he had a sharp shooting electricity type pain that came down into his fingertips. He reports that just after this his bilateral legs gave out and he nearly fell to the ground. Reports that he was able to get his legs under him and ambulate and he states that his legs are not bothering him anymore do not feel weak. He was aware of everything during this event and did not lose consciousness Related Data Home Medications ?Medication ?Instructions ?Recorded ?Confirmed atorvastatin 40 mg tablet 40 mg PO DAILY 11/11/2002/23 aspirin 81 mg tablet,delayed 81 mg PO DAILY 03/05/23 0 03/20/25 release tamsulosin 0.4 mg capsule (Flomax) 0.8 mg (2 x 0.4 mg) PO HS #180 caps 12/22/24 03/20/25 clopidogrel 75 mg tablet 75 mg PO DAILY 03/20/2502/23 Previous Rx's ?Medication ?Instructions ?Recorded tamsulosin 0.4 mg capsule (Flomax) 0.8 mg (2 x 0.4 mg) PO HS #180 caps 12/22/24 Allergies Allergy/AdvReac Type Severity Reaction Status Date / Time cilostazol (From Pletal) Allergy Severe Unknown Verified 03/20/25 14:07 General Stated Complaint: Orthopedic JODIE: 4 Exam Narrative Exam Narrative: Review of Systems: All systems reviewed & are unremarkable except as noted in HPI and below Well-developed, no acute distress NCAT PERRL, normal conjunctiva , no nystagmus RRR, no murmu Unlabored respiratory effort, CTAB Nondistended abdomen , soft non tender no focal neurologic deficits, CN intact, no dysmetria, normal gait normal sensation and strength in all 4 extremitie s Appropriate mood and affect Course Vital Signs Vital signs: Vital Signs Pulse 66 03/20/25 14:02 Blood Pressure 136/65 03/20/25 14:02 Pulse 65 03/20/25 14:31 Pulse 65 03/20/25 14:31 Respiratory Rate 15 03/20/25 14:31 Blood Pressure 134/74 03/20/25 14:31 Blood Pressure Mean 94 03/20/25 14:31 Blood Pressure Position Sitting 03/20/25 14:04 Pulse Oximetry 99 03/20/25 14:31 Oxygen Delivery Method Room Air 03/20/25 14:04 Oxygen Flow Rate 0 03/20/25 14:04 Pain Level 0 03/20/25 14:04 Medical Decision Making Emergent evaluation of sensory change in the right arm and a presyncopal event. Initial differential includes carotid insufficiency, radiculopathy, presyncope, cardiac dysrhythmia. Patient has a nonfocal neurologic exam at this time. I reviewed his recent discharge summary from [facility] neurology who reports that his prior episode of leg shaking and weakness was likely a TIA. MRI EEG and other workup was otherwise unremarkable. He was started on DOAC and reports compliance with this. EKG independently interpreted, no dysrhythmia, no STEMI. Will get neurology consult to see if they think this is a recurrent TIA or other etiology. Lab work is unremarkable for any acute etiology. A teleneuro consult was performed and the neurologist does not have a clear diagnosis but is recommending telemetry monitoring, neurochecks. Continuation of medication treatment in case this was TIA. They do not recommend repeat head CT at this time given his more recent negative workup, but can get a repeat MRI. Patient has not had recurrent symptoms while in the emergency department. Discussed with hospitalist will admit for neuro recommendations. Quality:SDOH Health Related Social Needs: Health related social needs details none reported. PFSH All Active Problems (Updated 03/20/25 @ 16:40 by Surendra Ruiz MD) TIA (transient ischemic attack) (Acute) Neurological deficit, transient (Acute) Tubulovillous adenoma (Acute ~04/26/23) Tubular adenoma of colon (Acute ~04/26/23) Positive colorectal cancer screening using Cologuard test (Acute) Hemorrhoids (Acute) Acute urinary retention (Acute) Prostate cancer (Chronic) BPH (benign prostatic hyperplasia) (Chronic) prior thao placement for urinary retention Medical History (Updated 03/20/25 @ 16:40 by Surendra Ruiz MD) Calf pain Leg pain, bilateral Arterial occlusive disease Blood glucose elevated Elevated PSA Prostate nodule Complicated UTI (urinary tract infection) History of shoulder fracture left History of lower leg fracture right Surgical History (Updated 04/27/23 @ 08:02 by Ariella Rodrigues) History of colonoscopy (~04/2023) Family History Father Heart disease age 57 from [place] Mother No problems noted. Brother , unknown cause of No problems noted. Sister No problems noted. Sister No problems noted. Social History Smoking/Tobacco Use Status: Never Smoking risk assessment performed?: Yes Alcohol Intake: never Drug use: Never Substance use type: does not use Housing: house Current gender identity: male Do you feel safe at home: Yes Do you feel safe in your relationship?: Yes
[2025-03-20 14:52] LABS: ALT 27 U/L (16-63); AST 13 U/L (15-37); Albumin 3.4 g/dL (3.4-5.0); Alkaline Phosphatase 109 U/L (46-116); Anion Gap 7.3 mmol/L (3-11); BUN 15 mg/dL (7-18); Bilirubin, Total 0.4 mg/dL (0.2-1.0); CO2 28.7 mmol/L (21.0-32.0); CREATININE 0.7 mg/dL (0.70-1.30); Calcium 8.6 mg/dL (8.5-10.1); Chloride 106 mmol/L (98-107); Creatine Kinase 26 U/L (39-308); Estimated GFR 96.09 (mL/min/1.73m2); Glucose 109 mg/dL (74-106); Magnesium 1.8 mg/dL (1.8-2.4); Potassium 3.8 mmol/L (3.5-5.1); Sodium 142 mmol/L (136-145); Total Protein 6.4 g/dL (6.4-8.2)
--- NOTE | 2025-03-20 16:39 | W.PM.HP.N ---
Date of service: 03/20/25 Time of Service: 16:39 Assessment and Plan Assessment and plan (1) TIA (transient ischemic attack): Status: Acute Assessment and plan: - Patient recently diagnosed with recurrent TIAs after [place] [facility] [place] was consulted in the emergency department and recommended noncontrast MRI, neurochecks and observation overnight - Will continue above-mentioned neurology recommendations and evaluate patient again in the morning - Follow-up MRI results History of Present Illness History of Present Illness Chief Complaint: Right arm numbness, leg weakness Narrative: 75-year-old gentleman with past medical history of recent diagnosis of TIA full neurological workup [facility] presents to the emergency department with complaints of right arm numbness and leg weakness. Patient states that he was just recently informed to [facility] and had a full neurologic evaluation with diagnosis of TIA with similar presenting symptoms. He was started on dual platelet therapy and has been compliant with his medication regimen. However, earlier in the day he lifted something above his head and began to notice right arm numbness when he put his arm back down he had a sharp electrical-like sensation that shot down to his right fingers. Shortly after he had bilateral leg weakness with his legs giving out causing him to fall to the ground without hitting his head or losing consciousness. Otherwise since presenting emergency department he states he is likely resolution of his symptoms. In the emergency department the patient was noted to have normal vital signs, CBC and CMP. He also had consultation with [facility] neurology who recommended patient be continued on current medication therapy and obtain noncontrast MRI and be observed overnight with neurologic checks. At which time emergency room physician paged hospitalist for admission for patient with TIA. Review of Systems All systems reviewed & are unremarkable except as noted in HPI and below PFSH All Active Problems (Updated 03/20/25 @ 16:40 by Surendra Ruiz MD) TIA (transient ischemic attack) (Acute) Neurological deficit, transient (Acute) Tubulovillous adenoma (Acute ~04/26/23) Tubular adenoma of colon (Acute ~04/26/23) Positive colorectal cancer screening using Cologuard test (Acute) Hemorrhoids (Acute) Acute urinary retention (Acute) Prostate cancer (Chronic) BPH (benign prostatic hyperplasia) (Chronic) prior thao placement for urinary retention Medical History (Updated 03/20/25 @ 16:40 by Surendra Ruiz MD) Calf pain Leg pain, bilateral Arterial occlusive disease Blood glucose elevated Elevated PSA Prostate nodule Complicated UTI (urinary tract infection) History of shoulder fracture left History of lower leg fracture right Surgical History (Updated 04/27/23 @ 08:02 by Ariella Rodrigues) History of colonoscopy (~04/2023) Family History Father Heart disease age 57 from [place] Mother No problems noted. Brother , unknown cause of No problems noted. Sister No problems noted. Sister No problems noted. Social History Smoking/Tobacco Use Status: Never Smoking risk assessment performed?: Yes Alcohol Intake: never Drug use: Never Substance use type: does not use Housing: house Current gender identity: male Do you feel safe at home: Yes Do you feel safe in your relationship?: Yes Meds Allergies and Home Medications Allergies Allergy/AdvReac Type Severity Reaction Status Date / Time cilostazol (From Pletal) Allergy Severe Unknown Verified 03/20/25 14:07 Home Medications ?Medication ?Instructions ?Recorded ?Confirmed ?Type atorvastatin 40 mg tablet 40 mg PO DAILY 11/11/20 03/20/25 History aspirin 81 mg tablet,delayed 81 mg PO DAILY 03/05/23 03/20/25 History release tamsulosin 0.4 mg capsule (Flomax) 0.8 mg (2 x 0.4 mg) PO HS #180 caps 12/22/24 03/20/25 Rx clopidogrel 75 mg tablet 75 mg PO DAILY 03/20/25 03/20/25 History Exam Narrative Exam Narrative: Well-appearing gentleman laying in bed in no acute distress, ANO x 4, heart regular rhythm, auscultation bilaterally, abdomen soft, nontender, nondistended, normal sensation and strength in bilateral upper and lower extremities without signs of focal neurological defecits Results Labs 03/20/25 14:28 03/20/25 14:28 Labs: Laboratory Results - last 24 hr 03/20/25 14:28 WBC 10.27 RBC 5.31 Hgb 14.8 Hct 45.3 MCV 85 MCH 27.9 MCHC 32.7 RDW 12.4 Plt Count 208 MPV 8.9 Immature Gran % 0.5 Neutrophils % 68.1 Lymphocytes % 14.8 Monocytes % 13.8 Eosinophils % 2.0 Basophils % 0.8 Nucleated RBC % 0.0 Absolute Neutrophils 6.99 H Absolute Lymphocytes 1.52 Absolute Monocytes 1.42 H Absolute Eosinophils 0.21 Absolute Basophils 0.08 Sodium 142 Potassium 3.8 Chloride 106 Carbon Dioxide 28.7 Anion Gap 7.3 BUN 15 Creatinine 0.7 Est GFR (CKD-EPI 2020) 96.09 Glucose 109 H Calcium 8.6 Magnesium 1.8 Total Bilirubin 0.4 AST 13 L ALT 27 Alkaline Phosphatase 109 Creatine Kinase 26 L Total Protein 6.4 Albumin 3.4 Last Vital Signs Pulse 63 03/20/25 16:31 Resp 16 03/20/25 16:31 BP 146/88 H 03/20/25 16:31 Pulse Ox 99 03/20/25 16:31 Time Spent Time spent with Patient: >75 minutes Time was spent: preparing to see the patient(eg.review tests), obtaining and/or reviewing separately otained hiistory, ordering medications,tests, procedures, referring, communicating with other health palliative care nurse, indepentently interpreting results, counseling the patient and care coordination
--- NOTE | 2025-03-20 18:43 | W.PC.ACHO ---
Registration Status: ADM CARLA Primary Language: Preferred Language: ED Information & Data Chief Complaint Orthopedic 03/20/25 14:39 Triage Note Patient was hanging up his 03/20/25 14:04 garden hose and right hand became tingly. States he has had some leg weakness and was seen last week for same. Denies any chest pain or sob. Medical / Surgical History (Last Reviewed 04/26/23 @ 06:18 by Swathi Peres) Calf pain Leg pain, bilateral Arterial occlusive disease Blood glucose elevated Elevated PSA Prostate nodule Complicated UTI (urinary tract infection) History of shoulder fracture History of lower leg fracture (Last Updated 04/27/23 @ 08:02 by Ariella Rodrigues) History of colonoscopy (~04/2023) Most Recent Vital Signs Temperature 36.5 C 03/20/25 18:12 Temperature Source Temporal Artery Scan 03/20/25 18:12 Pulse 56 L 03/20/25 18:12 Pulse 58 L 03/20/25 17:32 Respiratory Rate 18 03/20/25 18:12 Blood Pressure 137/72 03/20/25 18:12 Blood Pressure Mean 93 03/20/25 18:12 Blood Pressure Position Sitting 03/20/25 14:04 Pulse Oximetry 97 03/20/25 18:12 Oxygen Delivery Method Room Air 03/20/25 18:12 Oxygen Flow Rate 0 03/20/25 18:12 Pain Level 0 03/20/25 14:04 Allergies cilostazol (From Pletal) Allergy (Severe, Verified 03/20/25 14:07) Unknown 03/21/23 pt reports he is unaware of this allergy.Marianna never heard of that word. NEHA Barcenas Precautions Isolation Standard precaution 03/20/25 14:07 IV IV Catheter Type [Right Saline Lock Antecubital] IV Catheter Gauge [Right 18 Antecubital] Diet Orders Category Date Time Status Regular/Normal [DIET] Nutrition 03/20/25 Dinner Active Diagnostics 03/20/25 Range/Units 14:28 WBC 10.27 (4.4-10.8) 10^3/uL RBC 5.31 (4.36-5.78) 10^6/uL Hgb 14.8 (13.5-17.5) g/dL Hct 45.3 (40.0-50.0) % MCV 85 (80-95) fL MCH 27.9 (27.0-33.0) pg MCHC 32.7 (32.0-36.0) % RDW 12.4 (11.8-14.1) % Plt Count 208 (130-400) 10^3/uL MPV 8.9 (8.0-11.0) fL Immature Gran % 0.5 % Neutrophils % 68.1 % Lymphocytes % 14.8 % Monocytes % 13.8 % Eosinophils % 2.0 % Basophils % 0.8 % Nucleated RBC % 0.0 (0.0-0.3) % Absolute Neutrophils 6.99 H (1.2-6.7) 10^3/uL Absolute Lymphocytes 1.52 (1.2-3.4) 10^3/uL Absolute Monocytes 1.42 H (0.1-0.8) 10^3/uL Absolute Eosinophils 0.21 (0.0-0.7) 10^3/uL Absolute Basophils 0.08 (0.0-0.2) 10^3/uL Sodium 142 (136-145) mmol/L Potassium 3.8 (3.5-5.1) mmol/L Chloride 106 (98-107) mmol/L Carbon Dioxide 28.7 (21.0-32.0) mmol/L Anion Gap 7.3 (3-11) mmol/L BUN 15 (7-18) mg/dL Creatinine 0.7 (0.70-1.30) mg/dL Est GFR (CKD-EPI 2020) 96.09 (mL/min/1.73m2) Glucose 109 H (74-106) mg/dL Calcium 8.6 (8.5-10.1) mg/dL Magnesium 1.8 (1.8-2.4) mg/dL Total Bilirubin 0.4 (0.2-1.0) mg/dL AST 13 L (15-37) U/L ALT 27 (16-63) U/L Alkaline Phosphatase 109 (46-116) U/L Creatine Kinase 26 L (39-308) U/L Total Protein 6.4 (6.4-8.2) g/dL Albumin 3.4 (3.4-5.0) g/dL Intake and Output - 24 Hour Total 03/20/25 13:51 thru 03/20/25 14:04 Weight 72.575 kg Falls Risk Assessment History of Falls No History 03/20/25 14:06 Contributing Factors No Factors 03/20/25 14:06 Ambulatory Aids Independent 03/20/25 14:06 Tubes/Lines None 03/20/25 14:06 Gait Evaluation No gait disturbance 03/20/25 14:06 Cognition No cognitive impairment 03/20/25 14:06 Fall Total Score 0 03/20/25 14:06 Level of Risk Standard/Low Risk 03/20/25 14:06 Problems (Last Reviewed 04/26/23 @ 06:18 by Swathi Peres) TIA (transient ischemic attack) (Acute) Neurological deficit, transient (Acute) v v v v v v v v v Sending and/or Receiving Nurses: Please use comment section below to note any information pertinent to the patient hand-off not included above. Information / Comments: report called at 16:01. Report received from: JAYESH Livingston RN
[2025-03-20] MEDS: Tamsulosin 0.4 MG CAPCR 0.8 MG PO (20:46)
[2025-03-20] MEDS: Normal Saline Flush 10 ML SYR IVP ×2 (20:47)
[2025-03-21 07:30] LABS: HCT 46.1 % (40.0-50.0); HGB 14.9 g/dL (13.5-17.5); MCH 27.4 pg (27.0-33.0); MCHC 32.3 % (32.0-36.0); MCV 85 fL (80-95); MPV 9.1 fL (8.0-11.0); Platelet Count 215 10^3/uL (130-400); RBC 5.43 10^6/uL (4.36-5.78); RDW 12.5 % (11.8-14.1); RDW-SD 38.5 fL; WBC 10.25 10^3/uL (4.4-10.8)
[2025-03-21 07:41] LABS: Anion Gap 8.4 mmol/L (3-11); BUN 15 mg/dL (7-18); CO2 26.6 mmol/L (21.0-32.0); CREATININE 0.7 mg/dL (0.70-1.30); Calcium 8.4 mg/dL (8.5-10.1); Chloride 110 mmol/L (98-107); Estimated GFR 96.09 (mL/min/1.73m2); Glucose 93 mg/dL (74-106); Magnesium 2.2 mg/dL (1.8-2.4); Potassium 4.1 mmol/L (3.5-5.1); Sodium 145 mmol/L (136-145)
[2025-03-21 08:22] VITALS: BP 101/58; PULSE 67; RESP 16; TEMP 36.5; O2SAT 97
[2025-03-21] MEDS: Clopidogrel 75 MG TAB PO (09:48)
[2025-03-21] MEDS: Aspirin E.C. 81 MG TABEC PO (09:48)
[2025-03-21] MEDS: Atorvastatin 40 MG TAB PO (09:49)
[2025-03-21] MEDS: Normal Saline Flush 10 ML SYR IVP (09:49)
--- NOTE | 2025-03-21 09:54 | DSE_ITS ---
Date of service: 03/21/25 Time of Service: 09:54 DS: Diagnosis Discharge Diagnosis (1) TIA (transient ischemic attack): Status: Acute Discharge Plan Disposition Patient Disposition: Home Condition: Good Discharge Details Reason For Visit: TIA Admit Date/Time: 03/20/25 16:39 Admit Provider: Surendra Ruiz Attending Provider: Surendra Ruiz Primary Care Provider: Ursula Jacob Hospital Course Hospital Course: Patient initially presented with signs and symptoms concerning for recurrent TIA. He complained of right upper extremity shooting pain that was ultimately determined to be due to a pinched nerve in the setting of lifting heavy object above his head and known spinal stenosis/arthritis, as well as weakening of his bilateral lower extremities which is similar to previous TIA episode. While in the emergency department he had teleneuro consultation and they recommended continuing current medication management including dual antiplatelet therapy and statin, and monitoring patient overnight with neurochecks. Patient was able to ambulate without difficulty and had normal neurologic exam, therefore was determined he was stable for discharge home with close [place] [facility] [place]. Home Meds and New Rx's Prescriptions: Continued atorvastatin 40 mg tablet 40 mg PO DAILY tamsulosin [Flomax] 0.4 mg capsule 0.8 mg PO HS Qty: 180 3RF aspirin 81 mg tablet,delayed release (DR/EC) 81 mg PO DAILY clopidogrel 75 mg tablet 75 mg PO DAILY Patient Comments: TAKE ONE TABLET BY MOUTH EVERY DAY Discharge Instructions Activity:: Activity as Tolerated Equipment/Supplies:: No Equipment Needed Diet:: As Tolerated Discharge Orders Discharge Orders: Discharge Order (Routine); Ordered 03/21/25 Ordered By: Surendra Ruiz DS: Summary Time Spent with Patient providing and/or coordinating discharge services: Greater than 30 minutes Status at Discharge Functional status at discharge: independent ambulation Overall status at discharge: patient is back to baseline Mental Status: mental status grossly normal Speech and Movement: speech and movement normal Mood: congruent mood Affect: normal affect Quality:SDOH Health Related Social Needs: Health related social needs details none reported. Health related social needs details: none reported. Exam Narrative Exam Narrative: Well-appearing gentleman laying in bed in no acute distress, ANO x 4, heart regular rhythm, auscultation bilaterally, abdomen soft, nontender, nondistended, normal sensation and strength in bilateral upper and lower extremities without signs of focal neurological defecits Psych Mental Status: mental status grossly normal Speech and Movement: speech and movement normal Mood: congruent mood Affect: normal affect DS: Data Vitals/I&O Vitals and I&O: Vital Signs Temperature 97.7 F 03/21/25 08:22 Temperature Source Temporal Artery Scan 03/21/25 08:22 Pulse 67 03/21/25 08:22 Pulse 58 L 03/20/25 17:32 Respiratory Rate 16 03/21/25 08:22 Respiratory Effort Normal, Non-Labored 03/20/25 19:34 Respiratory Depth Normal 03/20/25 19:34 Respiratory Pattern Normal 03/20/25 19:34 Blood Pressure 101/58 L 03/21/25 08:22 Blood Pressure Mean 72 03/21/25 08:22 Blood Pressure Position Sitting 03/20/25 14:04 Pulse Oximetry 97 03/21/25 08:22 Oxygen Delivery Method Room Air 03/21/25 08:22 Oxygen Flow Rate 0 03/21/25 08:22 Pain Level 0 03/20/25 23:31 Comment Pt stated that he wanted to get some sleep and wanted to skip 3 am vs, I told pt that it was up to the nurse. I will speak with nurse. 03/20/25 23:31 Intake & Output 03/20/25 03/21/25 03/21/25 17:59 05:59 17:59 Output Total 400 / 400 Balance -400 / -400 Weight 160 lb 160 lb Output: Urine 400 / 400 Other: Urine Color Straw Urine Appearance Clear Urine Odor Strong Data Completed and Pending Labs on day of discharge: Labs from last 24 hours 03/21/25 03/20/25 06:32 14:28 WBC 10.25 10.27 RBC 5.43 5.31 Hgb 14.9 14.8 Hct 46.1 45.3 MCV 85 85 MCH 27.4 27.9 MCHC 32.3 32.7 RDW 12.5 12.4 Plt Count 215 208 MPV 9.1 8.9 Immature Gran % 0.5 Neutrophils % 68.1 Lymphocytes % 14.8 Monocytes % 13.8 Eosinophils % 2.0 Basophils % 0.8 Nucleated RBC % 0.0 Absolute Neutrophils 6.99 H Absolute Lymphocytes 1.52 Absolute Monocytes 1.42 H Absolute Eosinophils 0.21 Absolute Basophils 0.08 Sodium 145 142 Potassium 4.1 3.8 Chloride 110 H 106 Carbon Dioxide 26.6 28.7 Anion Gap 8.4 7.3 BUN 15 15 Creatinine 0.7 0.7 Est GFR (CKD-EPI 2020) 96.09 96.09 Glucose 93 109 H Calcium 8.4 L 8.6 Magnesium 2.2 1.8 Total Bilirubin 0.4 AST 13 L ALT 27 Alkaline Phosphatase 109 Creatine Kinase 26 L Total Protein 6.4 Albumin 3.4 PFSH All Active Problems (Updated 03/20/25 @ 16:40 by Surendra Ruiz MD) TIA (transient ischemic attack) (Acute) Neurological deficit, transient (Acute) Tubulovillous adenoma (Acute ~04/26/23) Tubular adenoma of colon (Acute ~04/26/23) Positive colorectal cancer screening using Cologuard test (Acute) Hemorrhoids (Acute) Acute urinary retention (Acute) Prostate cancer (Chronic) BPH (benign prostatic hyperplasia) (Chronic) prior thao placement for urinary retention Medical History (Updated 03/20/25 @ 16:40 by Surendra Ruiz MD) Calf pain Leg pain, bilateral Arterial occlusive disease Blood glucose elevated Elevated PSA Prostate nodule Complicated UTI (urinary tract infection) History of shoulder fracture left History of lower leg fracture right Surgical History (Updated 04/27/23 @ 08:02 by Ariella Rodrigues) History of colonoscopy (~04/2023) Family History Father Heart disease age 57 from [place] Mother No problems noted. Brother , unknown cause of No problems noted. Sister No problems noted. Sister No problems noted. Social History Smoking/Tobacco Use Status: Never Smoking risk assessment performed?: Yes Alcohol Intake: never Drug use: Never Substance use type: does not use Housing: house Current gender identity: male Do you feel safe at home: Yes Do you feel safe in your relationship?: Yes Time Spent with Patient Time Spent with Patient: <45 minutes Time was spent: preparing to see the patient(eg.review tests), obtaining and/or reviewing separately otained hiistory, ordering medications,tests, procedures, referring, communicating with other health care management coordinator, indepentently interpreting results, counseling the patient and care coordination
--- NOTE | 2025-03-23 07:37 | NUR.NOTE ---
Access chart to determine the status of this patient for the MRI order that was placed by Dr. Finnegan. Patient was admitted, the order placed before admission. Was not completed. Will consult with Dr. Finnegan about cancelling the order. Nursing Note:
--- NOTE | 2025-03-24 15:17 | NUR.NOTE ---
Access chart to reconcile EKG orders with EKG's in [facility]. Duplicate order cancelled. Nursing Note:
== END 2025-03-21 11:38 | disposition home or self-care (01) ==
LOC: ER 16:46 → MS 18:06
PROVIDERS: Admitting Provider Family Medicine; Emergency Provider Emergency Medicine; PCP Nurse Practitioner Family; Responsible Provider Family Medicine; Visit Provider Family Medicine
DX: G45.9 Transient cerebral ischemic attack, unspecified (principal); R55 Syncope and collapse; S44.8X1A Injury of other nerves at shoulder and upper arm level, right arm, initial encounter; C61 Malignant neoplasm of prostate; R29.818 Other symptoms and signs involving the nervous system; X50.0XXA Overexertion from strenuous movement or load, initial encounter; Z79.899 Other long term (current) drug therapy; I49.8 Other specified cardiac arrhythmias; K64.8 Other hemorrhoids; R33.9 Retention of urine, unspecified; R20.2 Paresthesia of skin; R53.1 Weakness
CPT/HCPCS: 00123; 36415; 80048; 80053; 82550; 85027; 93005; 99285; 83735; 85025; 93010; 99223; 99239; G0378

== ENCOUNTER → 2025-06-19 09:55 | Outpatient (BNVA) | payer MEDICARE, SELFPAY | PROVIDERS: PCP Nurse Practitioner Family; Referring Provider Nurse Practitioner Family; Visit Provider Urology | DX: R33.8 Other retention of urine (principal); R39.9 Unspecified symptoms and signs involving the genitourinary system | CPT/HCPCS: 99213; 51798 ==